=== PATIENT | female | born 1990 | race Caucasian/White ===

== ENCOUNTER 2024-03-17 11:56 | Outpatient (OUT) | payer OTHER, SELFPAY ==
--- NOTE | 2024-03-17 12:06 | US_ITS ---
The [address] [address] Patient Name: KRISTEN LEWIS MRN: [id number] date: 1990 Sex: F Assigned Patient Location: US Current Patient Location: US Accession/Order Number: [id number] Exam Date: 03/17/2024 12:07 Report Date: 03/17/2024 12:37 At the request of: CARSON SALAZAR Procedure: US venous doppler LE LT EXAMINATION: US venous doppler LE LT HISTORY: Edema R60.9 , left calf pain COMPARISON: No relevant comparison available. FINDINGS: REGION: Left lower extremity THROMBI: None. COMPRESSIBILITY: Normal compressibility. FLOW: Normal waveform and antegrade flow between 5 and 20 cm/s. OTHER: None. US/US venous doppler LE LT IMPRESSION: 1. No deep vein thrombus within the left lower extremity. Electronically authenticated by: LUKE EDWARDS Date: 03/17/2024 12:37
[2024-03-17 12:41] LABS: Basophils Percent Auto 0.5 % (0.2-2.0); Eosinophils Absolute Auto 0.1 10^3/uL (0.0-0.7); Eosinophils Percent Auto 2.2 % (0.9-7.0); Hematocrit 32.6 % (36.0-48.0); Hemoglobin 10.4 g/dL (12.0-16.0); Immature Granulocytes Abs Auto 0.05 10^3/uL (0.00-0.03); Immature Granulocytes Pct Auto 0.9 % (0.0-0.5); Lymphocytes Absolute Auto 1.7 10^3/uL (1.2-3.8); Lymphocytes Percent Auto 31.5 % (20.5-60.0); Mean Corpuscular HGB Conc 31.9 g/dL (29.9-35.2); Mean Corpuscular Hemoglobin 23.2 pg (26.7-34.0); Mean Corpuscular Volume 72.6 fL (81.0-99.0); Monocytes Absolute Auto 0.4 10^3/uL (0.3-0.8); Monocytes Percent Auto 7.5 % (1.7-12.0); Neutrophils Absolute Auto 3.2 10^3/uL (1.4-6.5); Neutrophils Percent Auto 57.4 % (43.0-75.0); Platelet Count 291 10^3/uL (150-450); Red Blood Count 4.49 10^6/uL (4.20-5.40); Red Cell Distribution Width 14.6 % (11.0-15.0); White Blood Count 5.5 10^3/uL (4.0-11.0)
[2024-03-17 14:03] LABS: Alanine Aminotransferase 47 U/L (14-59); Albumin Globulin Ratio 1.1; Albumin Level 4.1 g/dL (3.4-5.0); Alkaline Phosphatase 59 U/L (46-116); Aspartate Amino Transferase 40 U/L (15-37); BUN Creatinine Ratio 15.9; Bilirubin Total 0.3 mg/dL (0.2-1.0); Calcium 8.8 mg/dL (8.5-10.1); Carbon Dioxide 24.6 mmol/L (21.0-32.0); Chloride 103 mmol/L (98-107); Estimated GFR (African America >60 (>=60); Estimated GFR (Non-African Ame >60 (>=60); Globulin 3.6 g/dL; Glucose 94 mg/dL (74-106); Potassium 3.6 mmol/L (3.5-5.1); Sodium 140 mmol/L (136-145); Total Protein 7.7 g/dL (6.4-8.2)
[2024-03-17 14:59] LABS: Magnesium 1.7 mg/dL (1.8-2.4)
== END 2024-03-17 11:57 | disposition home or self-care (01) ==
LOC: US 12:00
PROVIDERS: PCP Family Medicine; Visit Provider Family Medicine
DX: R60.9 Edema, unspecified (principal); B00.1 Herpesviral vesicular dermatitis
CPT/HCPCS: 36415; 80053; 83735; 85025; 93971

== ENCOUNTER 2024-06-01 07:36 | Outpatient (RCR) | payer OTHER, SELFPAY ==
[2024-05-25 09:48] VITALS: BP 139/89; PULSE 84; TEMP 36.6; O2SAT 97
[2024-05-25] MEDS: FERRIC CARBOXYMALTOSE 750 MG in 0.9 % SODIUM CHLORIDE 250 ML 795 MG IV (09:51)
--- NOTE | 2024-05-25 10:24 | PC.NURSE ---
tolerated infusion without any s/s of reaction
[2024-06-01] MEDS: FERRIC CARBOXYMALTOSE 750 MG in 0.9 % SODIUM CHLORIDE 250 ML 795 MG IV (09:50)
[2024-06-01 09:51] VITALS: BP 131/87; PULSE 81; TEMP 36.6; O2SAT 98
== END 2024-06-13 23:59 | disposition home or self-care (01) ==
LOC: INF 07:36
PROVIDERS: PCP Family Medicine; Visit Provider Family Medicine
DX: D50.9 Iron deficiency anemia, unspecified (principal)
CPT/HCPCS: 96365; J1439

== ENCOUNTER 2025-03-12 15:38 | Outpatient (OUT) | payer OTHER, SELFPAY ==
--- NOTE | 2025-03-12 | US_ITS ---
The [address] [address] Patient Name: KRISTEN LEWIS MRN: [id number] date: 1990 Sex: F Assigned Patient Location: US Current Patient Location: US Accession/Order Number: [id number] Exam Date: 03/12/2025 17:00 Report Date: 03/12/2025 17:04 At the request of: CARSON SALAZAR MD Procedure: US appendix US appendix 03/12/2025 4:38 PM SIGNS AND SYMPTOMS: ^RLQ Pain R10.31 PROTOCOL: Limited ultrasound of the abdomen and the right lower quadrant/region of the appendix with grayscale and color Doppler sonographic imaging COMPARISON: None FINDINGS: Grayscale and color Doppler sonographic images demonstrate loops of bowel within the right lower quadrant. The appendix is not readily identified. There is no evidence of free fluid US/US appendix IMPRESSION: Nonvisualization of the appendix with right lower quadrant ultrasound. There is ongoing clinical concern for appendicitis, follow-up with contrast-enhanced CT of the abdomen and pelvis is recommended. Impression dictated by: Florentino Scott M.D. 03/12/2025 5:04 PM Dictation Location: [place] [address] Electronically authenticated by: [id number] Y Date: 03/12/2025 17:04
== END 2025-03-12 15:39 | disposition home or self-care (01) ==
LOC: US 15:38
PROVIDERS: PCP Family Medicine; Visit Provider Family Medicine
DX: R10.31 Right lower quadrant pain (principal)
CPT/HCPCS: 76705

== ENCOUNTER 2025-03-15 01:18 | Emergency (ER) | payer OTHER, SELFPAY ==
[2025-03-15 01:22] VITALS: BP 156/109; PULSE 92; TEMP 37.3; O2SAT 98; BMI 34.3
--- OUTSIDE RECORDS SUMMARY | 2025-03-15 01:25 | XMS_ITS | Encounter Summary ---
Author Organization [facility] Address [address] [place] [address] Care Team Providers Care Technology Methodology Consultant Name Role Phone Michael Chávez MD Primary Care Provider [phone] Reason for Referral * Imaging (Routine) - Closed Specialty Diagnoses / Procedures Referred By Contac t Referred To Contact Radiology Diagnoses RUQ pain Procedures US ABDOMEN LIMITED Michael Chávez MD [address] [place] [address] Phone: tel: fax: Referral ID Status Reason Start Date Expiration Date Visits Re quested Visits Authorized [id number] Closed 10/05/2022 10/05/2023 1 1 Encounter Details Date Type Department Care Team (Latest Contact Info) Description 10/05/2022 Transcribe Orders Bennett Pre Access [address] [place] [id number] [place] [address] [place] [id number] RUQ pain (Primary Dx) Social History Tobacco Use Types Packs/Day Years Used Date Smoking Tobacco: Former Cigarettes Smokeless Tobacco: Never Comments:patches Alcohol Use Standard Drinks/Week Comments No 0 (1 standard drink = 0.6 oz pur e alcohol) PHQ-2 Answer Date Recorded PHQ-9 Total Score 0 03/29/2020 Comments No Sex and Gender Information Value Date Recorded Sex Assigned at Female 06/29/2020 2:59 AM EDT Legal Sex Female 2:47 PM EST Gender Identity Female 06/29/2020 2:59 AM EDT Sexual Orientation Straight 06/29/2020 2: 59 AM EDT documented as of this encounter Plan of Treatment Upcoming Encounters Date Type Department Care Team (Late st Contact Info) Description 09/14/2025 1:45 PM EST Office Visit [facility]YN[facility]OLOGY Part of [address] [place] [phone] Lizbet Griffin, DO [address] [facility] [address] [place] [address] yearly documented as of this encounter Results * US ABDOMEN LIMITED Specify organ? LIVER, PANCREAS, GALLBLADDER (10/10/2022 11:06 AM EST) Anatomical Region Laterality Modality Abdomen Ultrasound 10/10/2022 11:1 4 AM EST Impressions 10/10/2022 1:17 PM EST Liver shows increased echogenicity suggesting hepatic steatosis without focal lesion. Prior cholecystectomy Narrative 10/10/2022 1:17 PM EST EXAMINATION: RIGHT UPPER QUADRANT ULTRASOUND 10/10/2022 10:35 am COMPARISON: December 14, 2021 HISTORY: ORDERING SYSTEM PROVIDED HISTORY: RUQ pain TECHNOLOGIST PROVIDED HISTORY: Specify organ?->LIVER Specify organ?->PANCREAS Specify organ?->GALLBLADDER FINDINGS: LIVER: Liver shows increased echogenicity suggesting hepatic steatosis without focal lesion. Liver 19.5 cm in length. BILIARY SYSTEM: Prior cholecystectomy Common bile duct is within normal limits measuring 3.8 mm. RIGHT KIDNEY: The right kidney is grossly unremarkable without evidence of hydronephrosis. PANCREAS: Visualized portions of the pancreas are unremarkable. OTHER: No evidence of right upper quadrant ascites. Procedure Note Mario Stewart, - 10/10/2022 EXAMINATION: RIGHT UPPER QUADRANT ULTRASOUND 10/10/2022 10:35 am COMPARISON: December 14, 2021 HISTORY: ORDERING SYSTEM PROVIDED HISTORY: RUQ pain TECHNOLOGIST PROVIDED HISTORY: Specify organ?->LIVER Specify organ?->PANCREAS Specify organ?->GALLBLADDER FINDINGS: LIVER: Liver shows increased echogenicity suggesting hepatic steatosis without focal lesion. Liver 19.5 cm in length. BILIARY SYSTEM: Prior cholecystectomy Common bile duct is within normal limits measuring 3.8 mm. RIGHT KIDNEY: The right kidney is grossly unremarkable without evidenceof hydronephrosis. PANCREAS: Visualized portions of the pancreas are unremarkable. OTHER: No evidence of right upper quadrant ascites. IMPRESSION: Liver shows increased echogenicity suggesting hepatic steatosis withoutfocal lesion. Prior cholecystectomy us Michael Chávez MD IMG US ORDERABLES Final Result documented in this encounter Visit Diagnoses Diagnosis RUQ pain- Primary Abdominal pain, right upper quadrant RUQ pain Abdominal pain, right upper quadrant documented in this encounter Additional Health Concerns Infection Onset Date Last Indicated Resolved Time C-diff Rule Out 02/14/2025 02/14/2025 02/14/2025 7 :04 PM EDT documented as of this encounter Care Teams Technology Methodology Consultant Relationship Specialty Start Date End Date Michael Chávez MD [address] [place] [address] PCP - General 10/22/13 documented as of this encounter
--- OUTSIDE RECORDS SUMMARY | 2025-03-15 01:25 | XMS_ITS | Encounter Summary ---
Author Organization [facility] Address [address] [place] [address] Care Team Providers Care Mold Making Supervisor Name Role Phone Michael Chávez MD Primary Care Provider [phone] Encounter Details Date Type Department Care Team (Latest Contact Info) Description 05/23/2022 Transcribe Orders Bennett Pre Access [address] [place] [address] Pinky Orozco, CHILD & ADOLESCENT PSYCHIATRIST - SOFTWARE QUALITY TESTER [address] [place] [address] Lump at site of vaccination (Primary Dx) Social History Tobacco Use Types [...] Description 09/14/2025 1:45 PM EST Office Visit [facility]YNECOLOGY Part of [address] [place] [phone] Lizbet Griffin, DO [address] [facility] [place] [address] yearly documented as of this encounter Visit Diagnoses Diagnosis Lump at site of vaccination- Primary documented in this encounter Additional Health Concerns Infection Onset Date Last Indicated Resolved Time C-diff Rule Out 02/14/2025 02/14/2025 02/14/2025 7 :04 PM EDT documented as of this encounter Care Teams Mold Making Supervisor Relationship Specialty Start Date End Date Michael Chávez MD [address] [place] [address] PCP - General 10/22/13 documented as of this encounter
--- OUTSIDE RECORDS SUMMARY | 2025-03-15 01:25 | XMS_ITS | Encounter Summary ---
Author Organization [facility] Address [address] [place] [address] Care Team Providers Care Storeperson Name Role Phone Michael Chávez MD Primary Care Provider [phone] Stalin Clarke MD Unavailable Michele Peterson DO Unavailable [phone] Encounter Details Date Type Department Care Team (Late st Contact Info) Description 11/11/2024 Abstract [facility] [address] [place] [address] Lennie Adams MA Social History Tobacco Use Types Packs/Day Years Used Date Smoking Tobacco: Former Cigarettes 0.3 10 Smokeless Tobacco: Never Comments:use patches daily Alcohol Use Standard Drinks/Week Comments Not Currently 0 (1 standard drink = 0.6 oz pur e alcohol) Socially Comments Unknown Sex and Gender Information Value Date Recorded Sex Assigned at Female 02/06/2024 5:35 PM EDT Legal Sex Female 6:51 PM EDT Gender Identity Female 02/06/2024 5:35 PM EDT Sexual Orientation Straight 02/06/2024 5: 35 PM EDT documented as of this encounter Plan of Treatment Upcoming Encounters Date Type Department Care Team (Late st Contact Info) Description 05/24/2025 2:00 PM EDT Office Visit [facility] [address] [place] [address] Michele Peterson DO [address] [place] [address] 09/28/2025 11:00 AM EST Office Visit [facility] [address] [place] [address] Stalin Clarke MD [address] [place] [address] documented as of this encounter Visit Diagnoses Not on filedocumented in this encounter Care Teams Storeperson Relationship Specialty Start Date End Date Michael Chávez MD PCP - General Family Medicine 02/07/24 Stalin Clarke MD [address] [place] [address] Referring Physician Endocrinology 10/27/24 Michele Peterson DO [address] [place] [address] Otolaryngology 10/27/24 documented as of this encounter
--- OUTSIDE RECORDS SUMMARY | 2025-03-15 01:25 | XMS_ITS | Encounter Summary ---
Author Organization [facility] Address [address] [place] [address] Care Team Providers Care Etl Data Architect Name Role Phone Michael Chávez MD Primary Care Provider [phone] Stalin Clarke MD Unavailable Michele Peterson Irwin DO Unavailable Encounter Details Date Type Department Care Team (Late st Contact Info) Description 08/18/2024 Orders Only [facility] [address] [place] [address] Stalin Clarke MD [address] [place] [address] Social History Tobacco Use Types Packs/Day Years [...] 05/24/2025 2:00 PM EDT Office Visit [facility] [place] [address] [place] [phone] Michele Peterson DO [address] [place] [address] 09/28/2025 11:00 AM EST Office Visit [facility] [address] [place] [phone] Stalin Clarke MD [address] [place] [address] documented as of this encounter Procedures Procedure Name Priority Date/Time Associated Diagnosis Comments US THYROID Routine 08/18/2024 9:08 AM EST documented in this encounter Results * US thyroid (08/18/2024 9:08 AM EST) Anatomical Region Laterality Modality Head, Neck Ultrasound us Stalin Clarke MD IMG US PROCEDURES Final Resul t documented in this encounter Visit Diagnoses Not on filedocumented in this encounter Care Teams Etl Data Architect Relationship Specialty Start Date End Date Michael Chávez MD PCP - General Family Medicine 02/07/24 Stalin Clarke MD [address] [place] [address] Referring Physician Endocrinology 10/27/24 Michele Peterson DO [address] [place] [address] Otolaryngology 10/27/24 documented as of this encounter
--- OUTSIDE RECORDS SUMMARY | 2025-03-15 01:25 | XMS_ITS | Encounter Summary ---
Author Organization [facility] Address [address] [place] [address] Care Team Providers Care Rn Immunology Name Role Phone Michael Chávez MD Primary Care Provider [phone] Reason for Referral * Imaging (Routine) - Closed Specialty Diagnoses / Procedures Referred By Contac t Referred To Contact Radiology Diagnoses Elevated LFTs RUQ pain Procedures US ABDOMEN LIMITED Michael Cáhvez MD [address] [place] [address] Phone: tel: fax: Referral ID Status Reason Start Date Expiration Date Visits Re quested Visits Authorized [id number] Closed 12/05/2021 12/05/2022 2 2 Encounter Details Date Type Department Care Team (Latest Contact Info) Description 12/05/2021 Transcribe Orders Bennett Pre Access [address] [place] [phone] Michael Chávez MD [address] [place] [address] Elevated LFTs (Primary Dx); RUQ pain Social History Tobacco Use Types Packs/Day Years [...] Description 09/14/2025 1:45 PM EST Office Visit [facility] & [facility]YN[facility]OLOGY Part of [address] [place] [address] Lizbet Griffin, DO [address] [place] [address] [address] [place], [place] [phone] yearly documented as of this encounter Results * US ABDOMEN LIMITED Specify organ? LIVER, GALLBLADDER, PANCREAS (12/14/2021 8:13 AM EST) Anatomical Region Laterality Modality Abdomen Ultrasound 12/14/2021 8:13 AM EST Impressions 12/14/2021 8:34 AM EST Likely diffuse hepatic fatty infiltration. Narrative 12/14/2021 8:34 AM EST EXAMINATION: RIGHT UPPER QUADRANT ULTRASOUND 12/14/2021 8:13 am COMPARISON: None. HISTORY: ORDERING SYSTEM PROVIDED HISTORY: Elevated LFTs TECHNOLOGIST PROVIDED HISTORY: Specify organ?->LIVER Specify organ?->GALLBLADDER Specify organ?->PANCREAS FINDINGS: LIVER: There is diffusely increased echogenicity of the liver suggesting fatty infiltration. No evidence of intrahepatic biliary ductal dilatation. Portal vein demonstrates hepatopetal flow. BILIARY SYSTEM: Cholecystectomy. Common bile duct is within normal limits measuring 3 mm. RIGHT KIDNEY: The right kidney is grossly unremarkable without evidence of hydronephrosis. Right renal length is 11 cm. PANCREAS: Visualized portions of the pancreas are grossly unremarkable. OTHER: No evidence of right upper quadrant ascites. Procedure Note Zachary Garduno MD - 12/14/2021 EXAMINATION: RIGHT UPPER QUADRANT ULTRASOUND 12/14/2021 8:13 am COMPARISON: None. HISTORY: ORDERING SYSTEM PROVIDED HISTORY: Elevated LFTs TECHNOLOGIST PROVIDED HISTORY: Specify organ?->LIVER Specify organ?->GALLBLADDER Specify organ?->PANCREAS FINDINGS: LIVER: There is diffusely increased echogenicity of the liversuggesting fatty infiltration. No evidence of intrahepatic biliary ductaldilatation. Portal vein demonstrates hepatopetal flow. BILIARY SYSTEM: Cholecystectomy. Common bile duct is within normal limits measuring 3 mm. RIGHT KIDNEY: The right kidney is grossly unremarkable without evidenceof hydronephrosis. Right renal length is 11 cm. PANCREAS: Visualized portions of the pancreas are grossly unremarkable. OTHER: No evidence of right upper quadrant ascites. IMPRESSION: Likely diffuse hepatic fatty infiltration. us Michael Chávez MD IMG US ORDERABLES Final Result documented in this encounter Visit Diagnoses Diagnosis Elevated LFTs- Primary Other abnormal blood chemistry RUQ pain Abdominal pain, right upper quadrant Elevated LFTs Other abnormal blood chemistry RUQ pain Abdominal pain, right upper quadrant documented in this encounter Additional Health Concerns Infection Onset Date Last Indicated Resolved Time C-diff Rule Out 02/14/2025 02/14/2025 02/14/2025 7 :04 PM EDT documented as of this encounter Care Teams Rn Immunology Relationship Specialty Start Date End Date Michael Chávez MD [address] [place] [address] PCP - General 10/22/13 documented as of this encounter
--- OUTSIDE RECORDS SUMMARY | 2025-03-15 01:25 | XMS_ITS | Clinical Summary ---
Author Organization [facility] Address [address] [place] [address] Care Team Providers Care Donor Recruiter Name Role Phone Steffi Bermudez CNP Unavailable Michael Chávez MD Primary Care Provider [phone] Allergies Active Allergy Reactions Criticality Noted Date Comments Beta-Blockers (Beta-Adrenergic Blocking Agts) Rash Low 03/19/2019 Diltiazem Rash Low 03/29/2020 Latex Anaphylaxis,Rash,Lily rtne ss of breath,Swelling High 07/01/2014 Ondansetron Headache Low 11/16/2017 Migraines Medications Medication Sig Dispensed Refills Start Date End Date Status amLODIPine (Norvasc) 5 mg tablet Take 1 tablet by mouth twice a day. 10/29/2023 Active cholecalciferol, vitamin D3, 50 mcg (2,000 unit) capsule Take 1 capsule by mouth in the morning. Active fluticasone (Flonase) 50 mcg/actuation nasal spray 1 spray by Does not apply route in the morning. 02/24/2020 Active hydrOXYzine pamoate (Vistaril) 25 mg capsule Take by mouth. 08/24/2020 Active hyoscyamine 0.125 mg dissolvable tablet every 4 (four) hours if needed. 07/25/2023 Active levothyroxine (Synthroid, Levoxyl) 137 mcg tablet Take 137 mcg by mouth in the morning. 09/29/2024 09/24/2025 Active loratadine 10 mg capsule Take 1 capsule by mouth in the morning. Active magnesium oxide (Mag-Ox) 400 mg (241.3 mg magnesium) tablet Take 1 tablet by mouth twice a day. 08/20/2024 Active metFORMIN XR (Glucophage-XR) 500 mg 24 hr tablet Take 1,000 mg by mouth twice a day. 09/21/2024 Active nicotine (Nicoderm CQ) 14 mg/[address] 1 patch on the skin in the morning. Active omeprazole (PriLOSEC) [address] capsule Take 1 capsule by mouth in the morning. Active oxaprozin (Daypro) 600 mg tablet Take 1,200 mg by mouth in the morning. Active M- Plus 27 mg iron- 1 mg tablet 1 tablet at bedtime. 12/18/2024 Active QUEtiapine (SEROquel) 50 mg tablet Take 50 mg by mouth at bedtime. Active valACYclovir (Valtrex) 1 gram tablet if needed. 05/15/2024 Active venlafaxine XR (Effexor-XR) 150 mg 24 hr capsule at bedtime. 01/18/2025 Active azelastine (Optivar) 0.05 % ophthalmic solution Administer 1 drop into affected eye(s) twice a day. 01/11/2025 Active bisacodyl (Dulcolax) 5 mg EC tabletIndications:S creen for colon cancer Take 1 tablet (5 mg) by mouth if needed each day for constipation. Do not crush, chew, or split. Take 4 tablets (20 mg) by mouth on Saturday02/10/25 at 6pm. 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 Uterine leiomyoma 06/13/2020 Gastro-esophageal reflux disease without esophag itis 10/28/2019 Hypothyroidism, unspecified 10/28/2019 Left lower quadrant pain 11/20/2018 Encounters Date Type Department Care Team Description 02/11/2025 1:34 PM EDT Anesthesia Event [address] [place] [address] Nito Granados MD Stimes, Nicholas, MD 02/11/2025 10:33 AM EDT - 02/11/2025 11:59 PM EDT Hospital Encounter [address] [place] [address] Manoj Macedo MD Bhatt, Shashi B., MD Rozek, Marc, CRNA Iron deficiency anemia, unspecified iron deficiency anemia type; Chronic diarrhea; Chronic abdominal pain; Chronic iron deficiency anemia Discharge Disposition: Home or Self Care () 02/11/2025 Travel 02/02/2025 Travel 02/01/2025 Orders Only [facility] [address] [place] [address] [place] [address] ProviderNancy MD 01/29/2025 Orders Only [facility] [address] [place] [address] [place] [address] ProviderNancy MD 01/19/2025 12:35 PM EDT Lab [facility] Station [address] [place] [address] [place] [address] Iron deficiency anemia, unspecified iron deficiency anemia type; Chronic diarrhea; Chronic abdominal pain 01/19/2025 12:15 PM EDT - 01/19/2025 11:59 PM EDT Hospital Encounter [facility] X-Ray Imaging [address] [place] [address] [place] [address] Iron deficiency anemia, unspecified iron deficiency anemia type; Chronic diarrhea; Chronic abdominal pain Discharge Disposition: Home or Self Care () 01/19/2025 11:30 AM EDT Office Visit [facility] [address] [place] [address] [place] [address] Steffi Bermudez CNP Iron deficiency anemia, unspecified iron deficiency anemia type (Primary Dx); Chronic diarrhea; Chronic abdominal pain 01/19/2025 [facility] [address] [place] [address] Johnson Rowley MA Screen for colon cancer (Primary Dx) from Last 3 Months Immunizations Name Administration Dates Next Due Influenza, Unspecified 07/15/2018 Influenza, injectable, quadr ivalent, preservative free 08/11/2023,07/01/2018,08/09/2016 Influenza, recombinant, quad rivalent, injectable, preservative free 07/19/2022,06/30/2021,07/30/2020,07/31 Influenza, seasonal, injectable 07/15/2018 Influenza, seasonal, injecta ble, preservative free, 6 moonths & older 07/27/2024,07/26/2015 Pneumococcal Polysaccharide PPV23 07/01/2018 Tdap 03/22/2022 Social History Tobacco Use Types Packs/Day Years Used Date Smoking Tobacco: Former Cigarettes Smokeless Tobacco: Never Tobacco Cessation:Counseling Given: Not Answered Alcohol Use Standard Drinks/Week Comments Not Currently 0 (1 standard drink = 0.6 oz pur e alcohol) Humiliation, Afraid, Rape, and Kick questionnair e Answer Date Recorded Within the last year, have y ou been afraid of your partner or ex-partner? No 01/19/2025 Within the last year, have y ou been humiliated or emotionally abused in other ways by your partner or ex-partner? No Within the last year, have y ou been kicked, hit, slapped, or otherwise physically hurt by your partner or ex-partner? No 01/19/2025 Within the last year, have y ou been raped or forced to have any kind of sexual activity by your partner or ex-partner? No 01/19/2025 PHQ-2 Answer Date Recorded Patient Health Questionnaire-2 Score 0 01/19/2025 Sex and Gender Information Value Date Recorded Sex Assigned at Not on file Gender Identity Not on file Sexual Orientation Not on file Last Filed Vital Signs Vital Sign Reading Time Taken Comments Blood Pressure 134/78 02/11/2025 2:50 PM EDT Pulse 82 02/11/2025 2:50 PM EDT Temperature 36.4 C (97.5 F) 02/11/2025 2:50 PM EDT Respiratory Rate 12 02/11/2025 2:50 PM EDT Oxygen Saturation 99% 02/11/2025 2:50 PM EDT Inhaled Oxygen Concentration - - Weight 95.7 kg (210 lb 15.7 oz) 025 10:51 AM EDT Height 165.1 cm (5' 5 ) 02/11/2025 10:5 1 AM EDT Body Mass Index 35.11 02/11/2025 10:51 AM EDT Plan of Treatment Upcoming Encounters Date Type Department Care Team (Late st Contact Info) Description 04/06/2025 3:00 PM EDT Office Visit [facility] [address] [place] [address] Malenfant, Steffi Emanuel, RN [facility] [address] [place] [address] Health Maintenance Due Date Last Done Comments Varicella Vaccines (1 of 2 - 13+ 2-dose series) 2002 Hepatitis B Vaccines (1 of 3 - 19+ 3-dose series) 2008 COVID-19 Vaccine ( season) 2024 Pap Smear 08/28/2025 08/28/2022 Depression Screening 01/19/2026 01/19/2025 Cervical Cancer Screening 08/28/2027 HPV/Cotest 08/28/2027 08/28/2022 Adult Tetanus 03/22/2032 03/22/2022 Zoster Vaccines (1 of 2) 2039 Pneumococcal Vaccine: Pediatrics (0 to 5 Years) and At-Risk Patients (6 to 64 Years) Aged Out 07/01/2018 No longer eligible based on patient's age to complete this topic Influenza Vaccine Completed 07/27/2024, , 07/19/2022, Additional history exists HIB Vaccines Aged Out No longer eligi ble based on patient's age to complete this topic HPV Vaccines Aged Out No longer eligi ble based on patient's age to complete this topic IPV Vaccines Aged Out No longer eligi ble based on patient's age to complete this topic Meningococcal B Vaccine Aged Out No l onger eligible based on patient's age to complete this topic Meningococcal Vaccine Aged Out No gregory joseph eligible based on patient's age to complete this topic Rotavirus Vaccines Aged Out No longer eligible based on patient's age to complete this topic Procedures Procedure Name Priority Date/Time Associated Diagnosis Comments DIAGNOSTIC COLONOSCOPY Routine 2:19 PM EDT Chronic iron deficiency anemia EGD Routine 02/11/2025 2:19 PM EDT Iron deficiency anemia, unspecified iron deficiency anemia type Chronic diarrhea Chronic abdominal pain HISTOLOGY - TISSUE EXAM Routine 02/12/20 25 1:45 PM EDT Iron deficiency anemia, unspecified iron deficiency anemia type Chronic diarrhea Chronic abdominal pain Chronic iron deficiency anemia POCT GLUCOSE METER UNSOLICITED RESULTS Routine 02/11/2025 11:03 AM EDT POCT , URINE Routine 02/11/2025 11:01 AM EDT CALPROTECTIN STOOL Routine 02/01/2025 8: 14 AM EDT GASTROINTESTINAL PANEL Routine 8:11 AM EDT H. PYLORI ANTIGEN, STOOL Routine 025 10:30 AM EDT GLIADIN ANTIBODY, IGG Routine 01/19/2025 12:35 PM EDT Iron deficiency anemia, unspecified iron deficiency anemia type Chronic diarrhea Chronic abdominal pain TISSUE TRANSGLUTAMINASE, IGG Routine 01/19/2025 12:35 PM EDT Iron deficiency anemia, unspecified iron deficiency anemia type Chronic diarrhea Chronic abdominal pain GLIADIN ANTIBODY, IGA Routine 01/19/2025 12:35 PM EDT Iron deficiency anemia, unspecified iron deficiency anemia type Chronic diarrhea Chronic abdominal pain IGA Routine 01/19/2025 12:35 PM EDT Iron deficiency anemia, unspecified iron deficiency anemia type Chronic diarrhea Chronic abdominal pain CELIAC DISEASE SCREEN Routine 01/19/2025 12:35 PM EDT Iron deficiency anemia, unspecified iron deficiency anemia type Chronic diarrhea Chronic abdominal pain XR ABDOMEN 1 VIEW Routine 01/19/2025 12: 16 PM EDT Iron deficiency anemia, unspecified iron deficiency anemia type Chronic diarrhea Chronic abdominal pain from Last 3 Months Results * Diagnostic Colonoscopy (02/11/2025 2:19 PM EDT) Anatomical Region Laterality Modality Other Narrative 02/11/2025 2:39 PM EDT Table formatting from the original result was not included. Colonoscopy Procedure Note Procedure: Colonoscopy with biopsies Indications: Chronic iron deficiency anemia Chronic diarrhea Sedation: MAC Medications: No administrations occurring from 1328 to 1417 on 02/11/25 Attending Physician: Manoj Macedo MD Procedure Details Informed consent was obtained for the procedure, including sedation. Risks of perforation, hemorrhage, adverse drug reaction and aspiration were discussed. The patient was placed in the left lateral decubitus position. The patient was monitored continuously with ECG tracing, pulse oximetry, blood pressure monitoring, and direct observations. A rectal examination was performed. The colonoscope was inserted into the rectum and advanced under direct vision to the cecum, which was identified by the ileocecal valve and appendiceal orifice. The IC valve was intubated. A careful inspection was made as the colonoscope was withdrawn, including a retroflexed view of the rectum; findings and interventions are described below. Appropriate photodocumentation was obtained. Findings: Rectum to Cecum: Normal mucosa throughout. No evidence of polyps, masses, inflammation, diverticula, or vascular abnormalities. Terminal Ileum: Successfully intubated. Mucosa appeared normal with no erythema, ulcers, erosions, or nodularity. Random colon biopsies obtained to rule out microscopic colitis Quality of colonic prep: fair Withdrawal time: 11 minutes Procedure Events Event Event Time CLN SCOPE IN 02/11/2025 1:56 PM CLN CECUM REACHED 02/11/2025 2:03 PM CLN SCOPE OUT 02/11/2025 2:14 PM Specimens: C : Tissue Large Intestine HISTOLOGY - TISSUE EXAM Manoj Macedo MD 02/11/2025 [id number] Complications: None Estimated blood loss: Minimal Disposition: Home Condition: stable Impression: Grossly normal colonoscopy with normal terminal ileum examination. Recommendations: Await pathology results Follow up at the GI clinic Attending Attestation: I performed the procedure. Michael Chávez MD ENDOSCOPY PROCEDURE ORDERABLES * EGD (02/11/2025 2:19 PM EDT) Anatomical Region Laterality Modality Other Narrative 02/11/2025 2:34 PM EDT Table formatting from the original result was not included. Esophagogastroduodenoscopy (EGD) Procedure Note Procedure: EGD with biopsies Indications: Chronic diarrhea RUQ pain Sedation: MAC Medications: No administrations occurring from 1328 to 1417 on 02/11/25 Attending Physician: Manoj Macedo MD Procedure Details: Informed consent was obtained for the procedure, including sedation. Risks of infection, perforation, hemorrhage, adverse drug reaction, and aspiration were discussed. The patient was placed in the left lateral decubitus position. The patient was monitored continuously with ECG tracing, pulse oximetry, blood pressure monitoring, and direct observation. The gastroscope was inserted into the mouth and advanced under direct vision to second portion of the duodenum. A careful inspection was made as the gastroscope was withdrawn, including a retroflexed view of the proximal stomach; findings and interventions are described below. Appropriate photodocumentation was obtained. Findings: Esophagus: Normal mucosa. No evidence of esophagitis, varices, rings, webs, or masses. Normal Z-line at 37 cm Stomach: Patchy erythema of the gastric mucosa including fundus, body, and antrum. No ulcers, erosions, masses, or varices. Few small fundic gland polyps. Duodenum: First and second portions visualized and normal. No ulcers, inflammation, or masses. Duodenal biopsies from the second portion to rule out celiac disease. Gastric biopsies from the antrum and body to rule out Helicobacter pylori infection. Specimens: ID Type Source Tests Collected by Time A : Tissue Small Intestine, Duodenum HISTOLOGY - TISSUE EXAM Manoj Macedo MD 02/11/2025 1345 B : Tissue Gastric HISTOLOGY - TISSUE EXAM Manoj Macedo MD 02/11/2025 1347 Complications: None Estimated blood loss: Minimal Condition: stable Impression: Mild gastritis Recommendations: Await pathology results Follow up at the GI clinic Proceed with colonoscopy Attending Attestation: I performed the procedure. Steffi Bermudez RN [facility] ENDOSCOPY PRO CEDURE ORDERABLES * Histology - tissue exam (02/11/2025 1:45 PM EDT) Case Report Surgical Pathology Case: [id number] Authorizing Provider: Manoj Macedo MD Collected: 02/11/2025 1345 Ordering Location: [facility] Received: 02/11/2025 [facility] Pathologist: Miguel Smith MD Specimens: A) - Small Intestine, Duodenum B) - Gastric C) - Large Intestine 02/15/2025 10:28 AM [facility] ([facility]) Addendum 02/15/2025 B. Immunohistochemical staining for Helicobacter pylori is negative. The control is satisfactory. 02/15/2025 10:28 AM [facility] ([facility]) Addendum electronically signed by Miguel Smith MD on 02/15/2025 at 10:28 AM Final Diagnosis A. Duodenum, biopsy: - Duodenal mucosa with with no specific abnormality. - No significant inflammation or villous abnormality identified. B. Stomach, biopsy: - Chronic inactive gastritis. - No intestinal metaplasia identified. - See comment. C. Colon, biopsy: - Benign colonic mucosa with no specific abnormality. 02/15/2025 10:28 AM [facility] ([facility]) Clinical Information Order Diagnoses D50.9 - Iron deficiency anemia, unspecified iron deficiency anemia type [ICD-10-CM] K52.9 - Chronic diarrhea [ICD-10-CM] R10.9, G89.29 - Chronic abdominal pain [ICD-10-CM] D50.9 - Chronic iron deficiency anemia [ICD-10-CM] 02/15/2025 10:28 AM [facility] ([facility]) Comment B. Immunohistochemic al staining for Helicobacter pylori organisms is pending with results to follow in an addendum. 02/15/2025 10:28 AM [facility] ([facility]) Gross Description A. Small Intestine, Duodenum. The specimen is received in formalin labeled Quyen Kolby and duodenum. It consists of 6 oro-pink, feathery pieces of mucosal tissue ranging from 0.3 cm to 0.5 cm in greatest dimension. The specimen is submitted in toto in 1 cassette. Mónica Vera, Pathologists' Advanced Practice Nurse Psychotherapist student Jailene Wilkins, Pathologists' Advanced Practice Nurse Psychotherapist B. Gastric. The specimen is received in formalin labeled Quyen Kolby and gastric. It consists of 4 oro-pink, shaggy pieces and strips of mucosal tissue ranging from 0.3 cm to 0.7 cm in greatest dimension. The specimen is submitted in toto in 1 cassette. Mónica Vera Pathologists' Advanced Practice Nurse Psychotherapist student Jailene Wilkins, Pathologists' Advanced Practice Nurse Psychotherapist C. Large Intestine. The specimen is received in formalin labeled Quyen Kolby and large intest. It consists of 11 pale-oro, shaggy fragments of mucosal tissue ranging from 0.2 cm to 0.5 cm in greatest dimension. The specimen is submitted in toto in 1 cassette. Mónica Vera Pathologists' Advanced Practice Nurse Psychotherapist student Jailene Wilkins Pathologists' Advanced Practice Nurse Psychotherapist 02/15/2025 10:28 AM EDT [facility] ([facility]) Microscopic Description Microscopic examination performed. 02/15/2025 10:28 AM EDT [facility] ([facility]) Disclaimer The interpretation o f this case included the use of immunohistochemistry or special stains. These tests have not been cleared or approved by the U.S. Food and Drug Administration. The FDA has determined that such clearance or approval is not necessary. These tests are used for clinical purposes and should not be regarded as investigational or for research. This laboratory is certified to perform high complexity testing under the Clinical Laboratory Improvement Amendments of 1998. 02/15/2025 10:28 AM EDT [facility] ([facility]) Tissue Duodenal structure / Unknown 02/11/2025 1:45 PM EDT 02/11/2025 2:55 PM EDT Tissue specimen (specimen) (Gastric) 02/11/2025 1:47 PM EDT 02/11/2025 2:55 PM EDT Tissue specimen (specimen) (Large Intestine) 02/11/2025 2:07 PM EDT 02/11/2025 2:55 PM EDT Manoj Macedo MD LAB PATHOLOGY ORDER TELMA [facility] ([facility]) [address] [place] [address] * POCT glucose meter (02/11/2025 11:03 AM EDT) Glucose POC 100 70 - 105 mg/dL 02/11/2025 11:14 AM EDT [facility] ([facility]) Comment:[email or web address] Blood Capillary blood specimen / Unknown 02/11/2025 11:03 AM EDT 02/11/2025 11:14 AM EDT Narrative [facility] ([facility]) - 02/11/2025 11:14 AM EDT Waived Testing in the ED is performed under the ED CLIA certificate #[id number]. Manoj Macedo MD LAB BLOOD ORDERABLE S [facility]) [address] [place] [address] * POCT , urine manually resulted (02/11/2025 11:01 AM EDT) Preg Test, Ur Negative QC Pass/Fail Passed QC LOT # [id number] QC Expiration Date 03/09/2026 Urine 02/11/2025 11:0 1 AM EDT Oc Luevano MD POINT OF CARE TEST E NTER/EDIT ORDERABLES * Calprotectin stool (02/01/2025 8:14 AM EDT) Stool Rectal contents / Unknown Historical Provider LAB BODY FLUIDS A ND STOOLS ORDERABLES * Gastrointestinal panel (02/01/2025 8:11 AM EDT) Stool Rectal contents / Unknown Historical Provider LAB MICROBIOLOGY - GENERAL ORDERABLES * H. pylori antigen, stool (01/29/2025 10:30 AM EDT) Stool Rectal contents / Unknown Historical Provider LAB BODY FLUIDS A ND STOOLS ORDERABLES * Celiac disease screen (01/19/2025 12:35 PM EDT) Tissue Transglutaminase, IgA <1.02 0.00 - 4.99 FLU 01/22/2025 3:44 AM EDT [facility]) Comment: Tissue transglutaminase, IgA antibody below lower limit of detection. Deamidated gliadin peptide, IgA test to follow. INTERPRETIVE INFORMATION: Tissue Transglutaminase (tTG) Antibody, IgA Presence of the tissue transglutaminase (tTG) IgA antibody is associated with gluten-sensitive enteropathies such as celiac disease and dermatitis herpetiformis. Individuals with positive results should be confirmed with small intestinal biopsy to establish celiac disease diagnosis. tTG IgA antibody concentrations greater than 50 FLU exhibits higher correlation with results of duodenal biopsies consistent with celiac disease. For antibody concentrations greater than or equal to 5 FLU but less than 10 FLU, additional testing for endomysial (CAMI) IgA concentrations may improve the positive predictive value for disease. A decrease in tTG IgA antibody concentration after initiation of a gluten-free diet may indicate a response to therapy. Performed By: [facility] [address] [place], [place] [id number] Women'S Ministry Director: Yuriy Cardenas MD, PhD CLIA Number: [id number] Blood Venous blood specimen / Unknown Venipuncture / Unknown 01/19/2025 12:35 PM EDT 01/19/2025 1:32 PM EDT Steffi Bermudez [facility] BLOOD ORD ERABLES [facility]) [address] [place] [address] * Gliadin antibody, IgG (01/19/2025 12:35 PM EDT) Deamidated Gliadin Peptide (DGP) Ab, IgG 2.33 0.00 - 4.99 FLU 01/22/2025 2:32 PM EDT [facility]) Comment: INTERPRETIVE INFORMATION: Deamidated Gliadin Peptide (DGP) Ab, IgG In individuals with low or deficient IgA, testing for tissue transglutaminase (tTG) and deamidated Gliadin (DGP) antibodies of the IgG isotype is performed. Positive tTG and/or DGP IgG antibody results indicate celiac disease; however, small intestinal biopsy is required to establish a diagnosis due to the lower accuracy of these markers, especially in patients without IgA deficiency. Performed By: [facility] [address] [place], [place] [id number] Women[employer] Director: Yuriy Cardenas MD, PhD CLIA Number: [id number] Blood Venous blood specimen / Unknown Venipuncture / Unknown 01/19/2025 12:35 PM EDT 01/19/2025 1:32 PM EDT Steffi Bermudez [facility] BLOOD ORD ERABLES [facility]) [address] [place] [address] * Gliadin antibody, IgA (01/19/2025 12:35 PM EDT) Deamidated Gliadin Peptide (DGP) Ab, IgA <0.72 0.00 - 4.99 FLU 01/22/2025 3:44 AM EDT [facility]) Comment: Low IgA antibody levels suspected. Tissue transglutaminase, IgG and deamidated gliadin peptide, IgG tests to follow. INTERPRETIVE INFORMATION: Deamidated Gliadin Peptide (DGP) Ab, IgA A positive deamidated gliadin (DGP) IgA antibody result is associated with celiac disease but is not to be used as an initial screening test due to its low specificity and only occasional positivity in celiac disease patients who are negative for tissue transglutaminase (tTG) IgA antibody. Performed By: [facility] [address] [place] [id number] Women[employer] Director: Yuriy Cardenas MD, PhD CLIA Number: [id number] Blood Venous blood specimen / Unknown Venipuncture / Unknown 01/19/2025 12:35 PM EDT 01/19/2025 1:32 PM EDT Steffi Bermudez [facility] BLOOD ORD ERABLES Performing Organization Address [facility]/ZIP Co de Phone Number [facility] ([facility]) [address] [place] [address] * Tissue transglutaminase, IgG (01/19/2025 12:35 PM EDT) Tissue Transglutaminase, IgG <0.82 0.00 - 4.99 FLU 01/22/2025 2:32 PM EDT [facility] ([facility]) Comment: INTERPRETIVE INFORMATION: Tissue Transglutaminase Ab, IgG In individuals with low or deficient IgA, testing for tissue transglutaminase (tTG) and deamidated Gliadin (DGP) antibodies of the IgG isotype is performed. Positive tTG and/or DGP IgG antibody results indicate celiac disease; however, small intestinal biopsy is required to establish a diagnosis due to the lower accuracy of these markers, especially in patients without IgA deficiency. Performed By: [facility] [address] [place] [address] Women'S Ministry Director: Yuriy Cardenas MD, PhD CLIA Number: [id number] Blood Venous blood specimen / Unknown Venipuncture / Unknown 01/19/2025 12:35 PM EDT 01/19/2025 1:32 PM EDT Steffibimal Greerkadiestephanie [facility] BLOOD ORD ERABLES Performing Organization Address [facility] Co de Phone Number [facility] [address] [place] [address] * IgA (01/19/2025 12:35 PM EDT) IgA 237.0 84.5 - 499.0 mg/dL 01/20/2025 10:28 AM EDT [facility] ([facility]) Comment:Testing performed us ing a new methodology, turbidimetry. Normal ranges have been updated. Old normal range was 60-413 mg/dL (adult). Blood Venous blood specimen / Unknown Venipuncture / Unknown 01/19/2025 12:35 PM EDT 01/19/2025 1:32 PM EDT Steffi Greerkadieant RN [facility] BLOOD ORD ERABLES [facility]) [address] [place], [place] [id number] * XR abdomen 1 view (01/19/2025 12:16 PM EDT) Anatomical Region Laterality Modality Abdomen Computed Radiogr aphy 01/19/2025 1:09 PM EDT Impressions 01/19/2025 1:28 PM EDT Suboptimal study as a large portion of the abdomen is excluded from the zcrxu-im-vmcs. Recommend repeat radiograph. Electronically signed: Ruslan Davis MD. Narrative 01/19/2025 1:28 PM EDT XR ABDOMEN 1 VIEW 01/19/2025 12:15 PM CLINICAL INDICATIONS: Diarrhea COMPARISON: None FINDINGS: 2 views of the abdomen were obtained. However the central abdomen was excluded from the jxhvv-rb-tvcc. Moderate fecal burden within the rectum. No definite evidence of pneumoperitoneum. Procedure Note Rusaln Davis MD - 01/19/2025 XR ABDOMEN 1 VIEW 01/19/2025 12:15 PM CLINICAL INDICATIONS: Diarrhea COMPARISON: None FINDINGS: 2 views of the abdomen were obtained. However the central abdomen wasexcluded from the bmfqy-df-gfyq. Moderate fecal burden within the rectum. Nodefinite evidence of pneumoperitoneum. IMPRESSION: Suboptimal study as a large portion of the abdomen is excluded from the zjytm-pt-cdbd. Recommend repeat radiograph. Electronically signed: Ruslan Davis MD. Steffi Luciano Greerberta RN [facility] XR PROCED URES from Last 3 Months Care Teams Donor Recruiter Relationship Specialty Start Date End Date Michael Chávez MD [address] [facility] [address] PCP - General Family Medicine 02/11/25 Steffi Bermudez RN [facility] [address] [place] [address] Gastroenterology 01/20/25
--- OUTSIDE RECORDS SUMMARY | 2025-03-15 01:25 | XMS_ITS | Referral Summary ---
Author Organization [facility] Address [address] [place] [address] Care Team Providers Care Personal Driver Name Role Phone Steffi Bermudez CNP Unavailable [phone] Michael Chávez MD Primary Care Provider [phone] Encounters Date Type Department Care Team Description 02/11/2025 Travel 02/11/2025 10:33 AM EDT - 02/11/2025 11:59 PM EDT Hospital Encounter [facility] Invasive Surgery [address] [place] [address] Manoj Macedo MD Bhatt, Shashi B., MD Rozek, Marc, CRNA Iron deficiency anemia, unspecified iron deficiency anemia type; Chronic diarrhea; Chronic abdominal pain; Chronic iron deficiency anemia Discharge Disposition: Home or Self Care () 02/11/2025 1:34 PM EDT Anesthesia Event [facility] Invasive Surgery [address] [place] [address] Nito Granados MD Stimes, Nicholas, MD 02/02/2025 Travel 02/01/2025 Orders Only [facility] Gastroenterology [address] [place] [address] [place] [address] Nancy Iraheta MD 01/29/2025 Orders Only [facility] Gastroenterology [address] [place] [address] [place] [address] ProviderNancy MD 01/19/2025 Orders Only [facility] Invasive Surgery Center Endoscopy [address] [place] [address] [place] [phone] Johnson Rowley MA Screen for colon cancer (Primary Dx) 01/19/2025 12:35 PM EDT Lab [facility] Draw Station [address] [place] [address] [place] [phone] Iron deficiency anemia, unspecified iron deficiency anemia type; Chronic diarrhea; Chronic abdominal pain 01/19/2025 12:15 PM EDT - 01/19/2025 11:59 PM EDT Hospital Encounter [facility] X-Ray Imaging [address] [place] [address] [place] [address] Iron deficiency anemia, unspecified iron deficiency anemia type; Chronic diarrhea; Chronic abdominal pain Discharge Disposition: Home or Self Care () 01/19/2025 11:30 AM EDT Office Visit [facility] Gastroenterology [address] [place] [address] [place] [address] Steffi Bermudez CNP Iron deficiency anemia, unspecified iron deficiency anemia type (Primary Dx); Chronic diarrhea; Chronic abdominal pain from Last 3 Months Allergies Active Allergy Reactions Criticality Noted Date [...] unspecified 10/28/2019 Left lower quadrant pain 11/20/2018 Immunizations Name Administration Dates Next Due Influenza, [...] Description 04/06/2025 3:00 PM EDT Office Visit [facility] Gastroenterology [facility] [address] MaleSteffi hampton, WEIGHT SHIFTER [address] [place] [address] Procedures Procedure Name Priority Date/Time Associated Diagnosis Comments DIAGNOSTIC COLONOSCOPY Routine 2:19 PM EDT Chronic iron deficiency anemia EGD Routine 02/11/2025 2:19 PM EDT Iron deficiency anemia, unspecified iron deficiency anemia type Chronic diarrhea Chronic abdominal pain HISTOLOGY - TISSUE EXAM Routine 02/12/20 1:45 PM EDT Iron deficiency anemia, unspecified [...] - TISSUE EXAM Manoj Macedo MD 02/11/2025 1407 Complications: None Estimated blood loss: Minimal Disposition: [...] Attending Attestation: I performed the procedure. Steffi Luciano Lara WE[employer] SH[facility]TER ENDOSCOPY PRO CEDURE ORDERABLES * Histology - tissue exam (02/11/2025 1:45 PM EDT) Case Report Surgical Pathology Case: [id number] Authorizing Provider: Manoj Macedo MD Collected: 02/11/2025 1345 Ordering Location: [facility] Received: 02/11/2025 1455 Invasive Surgery Center Pathologist: Miguel Smith MD Specimens: A) - Small Intestine, Duodenum B) - Gastric C) - Large Intestine 02/15/2025 10:28 AM [facility] ([employer] Addendum 02/15/2025 B. Immunohistochemical staining for Helicobacter pylori is negative. The control is satisfactory. 02/15/2025 10:28 AM [facility] ([employer] Addendum electronically signed by Miguel Smith MD on 02/15/2025 at 10:28 AM Final Diagnosis A. Duodenum, biopsy: - Duodenal mucosa with with no specific abnormality. - No significant inflammation or villous abnormality identified. B. Stomach, biopsy: - Chronic inactive gastritis. - No intestinal metaplasia identified. - See comment. C. Colon, biopsy: - Benign colonic mucosa with no specific abnormality. 02/15/2025 10:28 AM T [facility] ([employer] Clinical Information Order Diagnoses D50.9 - Iron deficiency anemia, unspecified iron deficiency anemia type [ICD-10-CM] K52.9 - Chronic diarrhea [ICD-10-CM] R10.9, G89.29 - Chronic abdominal pain [ICD-10-CM] D50.9 - Chronic iron deficiency anemia [ICD-10-CM] 02/15/2025 10:28 AM [facility] ([facility]) Comment B. Immunohistochemic al staining for Helicobacter pylori organisms is pending with results to follow in an addendum. 02/15/2025 10:28 AM [facility] ([facility]) Gross Description A. Small Intestine, Duodenum. The specimen is received in formalin labeled Quyen Kolby and duodenum. It consists of 6 oro-pink, feathery pieces of mucosal tissue ranging from 0.3 cm to 0.5 cm in greatest dimension. The specimen is submitted in toto in 1 cassette. Mónica Vera, Pathologists' Paperback Machine Operator student Jailene Wilkins, Pathologists' Paperback Machine Operator B. Gastric. The specimen is received in formalin labeled Quyen Kolby and gastric. It consists of 4 oro-pink, shaggy pieces and strips of mucosal tissue ranging from 0.3 cm to 0.7 cm in greatest dimension. The specimen is submitted in toto in 1 cassette. Mónica Vera, Pathologists' Paperback Machine Operator student Jailene Wilkins, Pathologists' Paperback Machine Operator C. Large Intestine. The specimen is received in formalin labeled Quyen Kolby and large intest. It consists of 11 pale-oro, shaggy fragments of mucosal tissue ranging from 0.2 cm to 0.5 cm in greatest dimension. The specimen is submitted in toto in 1 cassette. Mónica Vera Pathologists' Paperback Machine Operator student Jailene Wilkins, Pathologists' Paperback Machine Operator 02/15/2025 10:28 AM [facility] ([facility]) Microscopic Description Microscopic examination performed. 02/15/2025 10:28 AM [facility] ([facility]) Disclaimer The interpretation o f this case [...] Amendments of 1998. 02/15/2025 10:28 AM EDT [facility] ([facility]) Tissue Duodenal structure / Unknown 02/11/2025 1:45 PM EDT 02/11/2025 2:55 PM EDT Tissue specimen (specimen) (Gastric) 02/11/2025 1:47 PM EDT 02/11/2025 2:55 PM EDT Tissue specimen (specimen) (Large Intestine) 02/11/2025 2:07 PM EDT 02/11/2025 2:55 PM EDT Manoj Macedo MD LAB PATHOLOGY ORDER TELMA [facility]) [address] [place] [address] * POCT glucose meter (02/11/2025 11:03 AM EDT) Glucose POC 100 70 - 105 mg/dL 02/11/2025 11:14 AM EDT [facility] ([facility]) Comment:[email or web address] Blood Capillary blood specimen / Unknown 02/11/2025 11:03 AM EDT 02/11/2025 11:14 AM EDT Narrative [facility]) - 02/11/2025 11:14 AM EDT Waived Testing in the ED is performed under the ED CLIA certificate #[id number]. Manoj Macedo MD LAB BLOOD ORDERABLE S [facility]) [address] [place] [address] * POCT , urine manually resulted (02/11/2025 [...] - 4.99 FLU 01/22/2025 3:44 AM EDT [facility] ([facility]) Comment: Tissue transglutaminase, IgA antibody below lower [...] indicate a response to therapy. Performed By: [facility] [address] [place] [id number] Logistics Coordinator: Yuriy Cardenas MD, PhD CLIA Number: [id number] Blood Venous blood specimen / Unknown Venipuncture / Unknown 01/19/2025 12:35 PM EDT 01/19/2025 1:32 PM EDT Steffi Luciano Greerberta [facility] BLOOD ORD ERABLES [facility] [address] [place] [address] * Gliadin antibody, IgG (01/19/2025 12:35 PM EDT) Deamidated Gliadin Peptide (DGP) Ab, IgG 2.33 0.00 - 4.99 FLU 01/22/2025 2:32 PM EDT [facility] ([facility]) Comment: INTERPRETIVE INFORMATION: Deamidated Gliadin Peptide (DGP) [...] in patients without IgA deficiency. Performed By: [place] [id number] Logistics Coordinator: Yuriy Cardenas MD, PhD CLIA Number: [id number] Blood Venous blood specimen / Unknown Venipuncture / Unknown 01/19/2025 12:35 PM EDT 01/19/2025 1:32 PM EDT Steffi Luciano Lara [facility] BLOOD ORD ERABLES [facility]) [address] [place] [address] * Gliadin antibody, IgA (01/19/2025 12:35 PM EDT) Deamidated Gliadin Peptide (DGP) Ab, IgA <0.72 0.00 - 4.99 FLU 01/22/2025 3:44 AM EDT [facility] ([facility]) Comment: Low IgA antibody levels suspected. Tissue [...] tissue transglutaminase (tTG) IgA antibody. Performed By: [facility] [address] [place] [address] Logistics Coordinator: Yuriy Cardenas MD, PhD CLIA Number: [id number] Blood Venous blood specimen / Unknown Venipuncture / Unknown 01/19/2025 12:35 PM EDT 01/19/2025 1:32 PM EDT Steffi Bermudez [facility] BLOOD ORD ERABLES Performing Organization Address City/[facility]/ZIP Co de Phone Number [facility] Location [facility]) [address] [place] [address] * Tissue transglutaminase, IgG (01/19/2025 12:35 PM EDT) Tissue Transglutaminase, IgG <0.82 0.00 - 4.99 FLU 01/22/2025 2:32 PM EDT [facility] [employer] ([facility]) Comment: INTERPRETIVE INFORMATION: Tissue Transglutaminase Ab, [...] in patients without IgA deficiency. Performed By: [facility] [address] [place] [address] Logistics Coordinator: Yuriy Cardenas MD, PhD CLIA Number: [id number] Blood Venous blood specimen / Unknown Venipuncture / Unknown 01/19/2025 12:35 PM EDT 01/19/2025 1:32 PM EDT Steffi Bermudez [facility] BLOOD ORD ERABLES [facility] ([facility]) [address] [place] [address] * IgA (01/19/2025 12:35 PM EDT) IgA 237.0 84.5 - 499.0 mg/dL 01/20/2025 10:28 AM EDT [facility] ([facility]) Comment:Testing performed us ing a new methodology, turbidimetry. Normal ranges have been updated. Old normal range was 60-413 mg/dL (adult). Blood Venous blood specimen / Unknown Venipuncture / Unknown 01/19/2025 12:35 PM EDT 01/19/2025 1:32 PM EDT Steffi Greerberta [facility] BLOOD ORD ERABLES [facility] ([facility]) [address] [place] [address] * XR abdomen 1 view (01/19/2025 12:16 PM EDT) Anatomical Region Laterality Modality Abdomen Computed Radiogr aphy 01/19/2025 1:09 PM EDT Impressions 01/19/2025 1:28 PM EDT Suboptimal study as a large portion of the abdomen is excluded from the lgnkc-kf-njwk. Recommend repeat radiograph. Electronically signed: Ruslan Davis MD. Narrative 01/19/2025 1:28 PM EDT XR ABDOMEN 1 VIEW 01/19/2025 12:15 PM CLINICAL INDICATIONS: Diarrhea COMPARISON: None FINDINGS: 2 views of the abdomen were obtained. However the central abdomen was excluded from the jnrdl-qi-tkic. Moderate fecal burden within the rectum. No definite evidence of pneumoperitoneum. Procedure Note Ruslan Davis MD - 01/19/2025 XR ABDOMEN 1 VIEW 01/19/2025 12:15 PM CLINICAL INDICATIONS: Diarrhea COMPARISON: None FINDINGS: 2 views of the abdomen were obtained. However the central abdomen wasexcluded from the cmtdi-ot-nyfe. Moderate fecal burden within the rectum. Nodefinite evidence of pneumoperitoneum. IMPRESSION: Suboptimal study as a large portion of the abdomen is excluded from the aeopk-bs-yiav. Recommend repeat radiograph. Electronically signed: Ruslan Davis MD. Steffi Bermudez CNP IMG XR PROCED URES from Last 3 Months Care Teams Personal Driver Relationship Specialty Start Date End Date Michael Chávez MD [address] [facility] [address] [address] PCP - General Family Medicine 02/11/25 Steffi Bermudez CNP [address] [place] [address] Gastroenterology 01/20/25
--- OUTSIDE RECORDS SUMMARY | 2025-03-15 01:25 | XMS_ITS | Clinical Summary ---
Author Organization [facility] Address [address] [place] [address] Care Team Providers Care Commodity Merchant Name Role Phone Michael Chávez MD Primary Care Provider [phone] Allergies Active Allergy Reactions Criticality Noted Date Comments Beta Adrenergic Blockers 03/19/2019 Diltiazem 03/29/2020 Latex Shortness Of Breath,Swelling High 07/01/2014 Metoprolol 03/29/2020 Ondansetron Hcl Other (See Comments) Low 11/16/2017 Migraines Medications omeprazole (PRILOSEC) 40 MG delayed release capsule Take 1 capsule by mouth daily Active levothyroxine (SYNTHROID) 137 MCG tablet Take 1 tablet by mouth nightly Active Cholecalciferol (VITAMIN D) 2000 units CAPS capsule Take 1 capsule by mouth daily Active fluticasone (FLONASE) 50 MCG/ACT nasal spray 1 spray by Nasal route daily 0 Active nicotine (NICODERM CQ) 14 MG/24HR Place 1 patch onto the skin every 24 hours Active hydrOXYzine (VISTARIL) 25 MG capsule Take 1 capsule by mouth 4 times daily as needed for Anxiety 0 Active venlafaxine (EFFEXOR XR) 75 MG extended release capsule 2 capsules nightly 0 Active loratadine (CLARITIN) 10 MG capsule Take 1 capsule by mouth daily Active hyoscyamine (LEVSIN/SL) [address] 1 tablet under the tongue every 6 hours as needed for Diarrhea or Cramping 3 Active amLODIPine (NORVASC) 5 MG tablet Take 1 tablet by mouth 2 times daily Active magnesium oxide (MAG-OX) 400 MG tablet Take 1 tablet by mouth 2 times daily 4 Active oxaprozin (DAYPRO) 600 MG tablet TAKE 2 TABLETS BY MOUTH EACH MORNING Active QUEtiapine (SEROQUEL) 50 MG tablet Take 1 tablet by mouth nightly Active Vit-Fe Fumarate-FA (M- PLUS) 27-1 MG TABS Take 1 tablet by mouth daily 30 tablet 12 4 Active metFORMIN (GLUCOPHAGE-XR) 500 MG extended release tablet TAKE TWO (2) TABLETS BY MOUTH IN THE MORNING AND TAKE TWO (2) TABLETS BY MOUTH AT BEDTIME 120 tablet 10 4 Active vitamin D (CHOLECALCIFERO L) 50 MCG (1999) TABS tablet Take 1 tablet by mouth daily 3 02/15/20 Discontinu ed(LIST CLEANUP) loratadine (CLARITIN) 10 MG tablet Take 1 tablet by mouth daily 3 02/15/20 Discontinu ed(LIST CLEANUP) triamcinolone (KENALOG) 0.1 % cream Apply topically 2 times daily Apply topically 2 times daily. 02/15/20 Discontinu ed(LIST CLEANUP) mupirocin (BACTROBAN) 2 % ointment Apply topically 3 times daily Apply topically 3 times daily. 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 Uterine leiomyoma 06/13/2020 Gastro-esophageal reflux disease without esophag itis 10/28/2019 Hypothyroidism, unspecified 10/28/2019 Left lower quadrant pain 11/20/2018 Endometriosis determined by laparoscopy Paratubal cyst Endometrial thickening on ultrasound Endometriosis of left fallopian tube Post-op pain Encounters Date Type Department Care Team Description 02/13/2025 9:33 PM EDT - 02/14/2025 5:04 PM EDT [facility] [address] [place], [place] [id number] PosadHarpreet eason MD Sears, Christopher D, MD Abdominal pain, right lower quadrant (Primary Dx); Acute appendicitis with generalized peritonitis without gangrene, perforation, or abscess Discharge Disposition: Home or Self Care 02/13/2025 Travel 01/28/2025 12:00 PM EDT - 01/28/2025 11:59 PM EDT Hospital Encounter [facility] [address] [place] [address] Discharge Disposition: Home or Self Care from Last 3 Months Immunizations Immunization Administration Dates Next Due Influenza Vaccine, unspecified formulation 07/15 Influenza, FLUARIX, FLULAVAL , FLUZONE (age 6 mo+) and AFLURIA, (age 3 y+), Quadv PF, 0.5mL 08/11/2023,07/01/2018,08/09/2016 TDaP, ADACEL (age 10y-64y), BOOSTRIX (age 10y+), IM, 0.5mL 03/22/2022 Family History Medical History Relation Name Comments Mental Illness Father Candido Bleeding Prob Mother Riya Other Other Ni family h/o o varian or breast cancer. No family h/o DVT. Hypertension Paternal Grandfather Bakari Stroke Paternal Grandfather Bakari Relation Name Status Comments Brother Alive Father Candido Maternal Grandfather Maternal Grandmother Mother Riya Alive Other Other Paternal Grandfather Bakari Paternal Grandmother Social History Tobacco Use Types Packs/Day Years Used Date Smoking Tobacco: Former Cigarettes 0.3 10 1 - 07/14/2018 Smokeless Tobacco: Never Comments:Still on patches Alcohol Use Standard Drinks/Week Comments No 0 (1 standard drink = 0.6 oz pur e alcohol) [facility] Utilities Answer Date Recorded In the past 12 months has e [facility], gas, oil, or water [email or web address] threatened to shut off services in your home? No 02/14/2025 PHQ-2 Answer Date Recorded PHQ-9 Total Score 0 09/30/2023 Hunger Vital Sign Answer Date Recorded Within the past 12 months, y ou worried that your food would run out before you got the money to buy more. Never true 02/15/20 25 Within the past 12 months, t he food you bought just didn't last and you didn't have money to get more. Never true 02/14/2025 PRAPARE - Transportation Answer Date Re corded In the past 12 months, has l ack of transportation kept you from medical appointments or from getting medications? No 01/2025 In the past 12 months, has l ack of transportation kept you from meetings, work, or from getting things needed for daily living? No 02/14/2025 Housing Stability Vital Sign Answer Pineda e Recorded In the last 12 months, was t here a time when you were not able to pay the mortgage or rent on time? No 02/14/2025 In the past 12 months, how m any times have you moved where you were living? 0 02/14/2025 At any time in the past 12 m [facility], were you homeless or living in a jail (including now)? No 02/14/2025 Food Insecurity Answer Date Recorded Within the past 12 months, y ou worried that your food would run out before you got the money to buy more. 1 02/14/2025 Within the past 12 months, t he food you bought just didn't last and you didn't have money to get more. 1 02/14/2025 Interpersonal Safety Domain Source: IP Abuse Scr eening Answer Date Recorded Physical abuse Denies 02/14/2025 Verbal abuse Denies 02/14/2025 Emotional abuse Denies 02/14/2025 Financial abuse Denies 02/14/2025 Sexual abuse Denies 02/14/2025 Comments No Sex and Gender Information Value Date Recorded Sex Assigned at Female 06/29/2020 2:59 AM EDT Legal Sex Female 2:47 PM EST Gender Identity Female 06/29/2020 2:59 AM EDT Sexual Orientation Straight 06/29/2020 2: 59 AM EDT Last Filed Vital Signs Vital Sign Reading Time Taken Comments Blood Pressure 134/78 02/14/2025 7:00 AM EDT Pulse 79 02/14/2025 7:00 AM EDT Temperature 36.3 C (97.4 F) 02/14/2025 7:00 AM EDT Respiratory Rate 14 02/14/2025 7:44 AM EDT Oxygen Saturation 96% 02/14/2025 7:00 AM EDT Inhaled Oxygen Concentration - - Weight 94.2 kg (207 lb 9.6 oz) 02/14/2025 1:55 A M EDT Height 165.1 cm (5' 5 ) 02/14/2025 1:55 AM EDT Body Mass Index 34.55 02/14/2025 1:55 AM EDT Plan of Treatment Upcoming Encounters Date Type Department Care Team (Late st Contact Info) Description 09/14/2025 1:45 PM EST Office Visit [facility] Part of [address] [place] [id number] Lizbet Griffin, DO [address] [place] [address] yearly Health Maintenance Due Date Last Done Comments Varicella vaccine (1 of 2 - 13+ 2-dose series) 2002 HIV screen 2004 Hepatitis B vaccine (1 of 3 - 19+ 3-dose series) 2008 COVID-19 Vaccine ( season) 2024 Depression Screen 09/30/2024 09/30/2023 Pap smear 08/28/2025 08/28/2022, 06/04/2018 Cervical cancer screen 08/28/2027 HPV (without or with Pap) 08/28/2027 08/28/2022 DTaP/Tdap/Td vaccine (2 - Td or Tdap) 03/22/2032 03/22/2022 Pneumococcal 0-49 years Vaccine Aged Out 07/01/2018 No longer eligible based on patient's age to complete this topic Hepatitis C screen Completed 12/01/2021, 09/20/2020 Flu vaccine Completed 07/27/2024, 07/15, 07/19/2022, Additional history exists Diabetes screen Discontinued 09/23/2024, 10/14, 10/02/2022, Additional history exists HPV vaccine Aged Out No longer eligi ble based on patient's age to complete this topic Hepatitis A vaccine Aged Out No longe r eligible based on patient's age to complete this topic Hib vaccine Aged Out No longer eligi ble based on patient's age to complete this topic Meningococcal (ACWY) vaccine Aged Out No longer eligible based on patient's age to complete this topic Meningococcal B vaccine Aged Out No l onger eligible based on patient's age to complete this topic Polio vaccine Aged Out No longer elig ible based on patient's age to complete this topic Procedures Procedure Name Priority Date/Time Associated Diagnosis Comments POTASSIUM Timed 02/14/2025 2:07 PM EDT MAGNESIUM Routine 02/14/2025 6:48 AM EDT CBC WITH AUTO DIFFERENTIAL Routine 02/14/2025 6:48 AM EDT BASIC METABOLIC PANEL W/ REFLEX TO MG FOR LOW K Routine 02/14/2025 6:[address] CHEST ABDOMEN PELVIS W CONTRAST STAT 02/13/2025 10:34 PM EDT LACTIC ACID STAT 02/13/2025 9:40 PM EDT LIPASE STAT 02/13/2025 9:40 PM EDT COMPREHENSIVE METABOLIC PANEL STAT 02/13/2025 9:40 PM EDT CBC WITH AUTO DIFFERENTIAL STAT 02/13/2025 9:40 PM EDT CALPROTECTIN STOOL Routine 01/27/2025 11 :01 AM EDT H. PYLORI ANTIGEN Routine 01/27/2025 11: 01 AM EDT GASTROINTESTINAL PANEL, MOLECULAR Routine 01/27/2025 11:01 AM EDT HEMOGLOBIN A1C Routine 09/23/2024 10:48 AM EST HUMAN PAPILLOMAVIRUS (HPV) DNA PROBE THIN PREP HIGH RISK Routine 08/28/2022 7:30 AM EST PAINTING MANAGER CYTOLOGY Routine 08/28/2022 7:30 AM EST HEPATITIS PANEL, ACUTE Routine 3:08 PM EST from Last 3 Months or Most Recently Relevant to Health Maintenance Results * Potassium (02/14/2025 2:07 PM EDT) Potassium 3.7 3.7 - 5.3 mmol/L 02/14/2025 2:07 PM EDT [facility] Blood BLOOD SPECIMEN / Unknown 02/14/2025 2:07 PM EDT 02/14/2025 4:16 PM EDT us Iain Aldana MD CHEMISTRY ORDERABLES Edie l Result [facility] [address] [phone] * (ABNORMAL) Basic Metabolic Panel w/ Reflex to MG (02/14/2025 6:48 AM EDT) Sodium 140 136 - 145 mmol/L 02/14/2025 6:48 AM T [facility] Potassium 3.0(L) 3.7 - 5.3 mmol/L 02/14/2025 6:48 AM [facility] Chloride 104 98 - 107 mmol/L 02/14/2025 6:48 AM [facility] CO2 23 20 - 31 mmol/L 02/14/2025 6:48 AM [facility] Anion Gap 13 9 - 16 mmol/L 02/14/2025 6:48 AM [facility] Glucose 83 74 - 99 mg/dL 02/14/2025 6:48 AM [facility] BUN 10 6 - 20 mg/dL 02/14/2025 6:48 AM [facility] Creatinine 0.6 0.50 - 0.90 mg/dL 02/14/2025 6:48 AM [facility] Est, Glom Filt Rate >90 >60 mL/min/1.7 3m2 02/14/2025 6:48 AM EDT [facility] Comment: These results are not intended for use in patients <18 years of age. eGFR results are calculated without a race factor using the 2020 CKD-EPI equation. Careful clinical correlation is recommended, particularly when comparing to results calculated using previous equations. The CKD-EPI equation is less accurate in patients with extremes of muscle mass, extra-renal metabolism of creatine, excessive creatine ingestion, or following therapy that affects renal tubular secretion. BUN/Creatinine Ratio 17 9 - 20 02/14/2025 6:48 AM EDT [facility] Calcium 8.6 8.6 - 10.4 mg/dL 02/14/2025 6:48 AM [facility] BLOOD SPECIMEN / Unknown 02/14/2025 6:48 AM EDT 02/14/2025 6:59 AM EDT us Iain Aldana MD CHEMISTRY ORDERABLES Edie marcano Result [facility] [address] [phone] * (ABNORMAL) CBC auto differential (02/14/2025 6:48 AM EDT) Only the most recent of2 resultswithin the time period is included. WBC 5.8 3.5 - 11.3 k/uL 02/14/2025 6:48 AM [facility] RBC 4.51 3.95 - 5.11 m/uL 02/14/2025 6:48 AM [facility] Hemoglobin 12.5 11.9 - 15.1 g/dL 02/14/2025 6:48 AM [facility] Hematocrit 35.8(L) 36.3 - 47.1 % 02/14/2025 6:48 AM [facility] MCV 79.4(L) 82.6 - 102.9 fL 02/14/2025 6:48 AM [facility] MCH 27.7 25.2 - 33.5 pg 02/14/2025 6:48 AM T [facility] MCHC 34.9(H) 28.4 - 34.8 g/dL 02/14/2025 6:48 AM [facility] RDW 13.1 11.8 - 14.4 % 02/14/2025 6:48 AM [facility] Platelets 268 138 - 453 k/uL 02/14/2025 6:48 AM [facility] MPV 9.8 8.1 - 13.5 fL 02/14/2025 6:48 AM [facility] NRBC Automated 0.0 0.0 per 100 WBC 02/14/2025 6:48 AM [facility] Neutrophils % 64 36 - 65 % 02/14/2025 6:48 AM [facility] Lymphocytes % 26 24 - 43 % 02/14/2025 6:48 AM [facility] Monocytes % 7 3 - 12 % 02/14/2025 6:48 AM [facility] Eosinophils % 2 1 - 4 % 02/14/2025 6:48 AM [facility] Basophils % 1 0 - 2 % 02/14/2025 6:48 AM [facility] Immature Granulocytes % 0 0 % 02/14/2025 6:48 AM [facility] Neutrophils Absolute 3.71 1.50 - 8.10 k/uL 02/14/2025 6:48 AM [facility] Lymphocytes Absolute 1.50 1.10 - 3.70 k/uL 02/14/2025 6:48 AM [facility] Monocytes Absolute 0.42 0.10 - 1.20 k/uL 02/14/2025 6:48 AM [facility] Eosinophils Absolute 0.09 0.00 - 0.44 k/uL 02/14/2025 6:48 AM [facility] Basophils Absolute 0.03 0.00 - 0.20 k/uL 02/14/2025 6:48 AM [facility] Immature Granulocytes Absolute <0.03 0.00 - 0.30 k/uL 02/14/2025 6:48 AM EDT [facility] 02/14/2025 6:48 AM EDT 02/14/2025 6:59 AM EDT Iain Aldana MD HEMATOLOGY ORDERABLES Fin al Result Performing Organization Address [facility]/ZIP Co de Phone Number [facility] [address] [place] [address] * Magnesium (02/14/2025 6:48 AM EDT) Magnesium 1.8 1.6 - 2.6 mg/dL 02/14/2025 6:48 AM EDT [facility] 02/14/2025 6:48 AM EDT 02/14/2025 6:59 AM EDT Iain Aldana MD CHEMISTRY ORDERABLES Edie l Result Performing Organization Address [facility] Co de Phone Number [facility] [address] [place] [address] * CT CHEST ABDOMEN PELVIS W CONTRAST Additional Contrast? None (02/13/2025 10:34 PM EDT) Anatomical Region Laterality Modality Chest, Abdomen, Pelvis, Hip Comp uted Tomography 02/13/2025 11:3 7 PM EDT Impressions 02/13/2025 11:47 PM EDT 1. No pneumoperitoneum or findings to suggest bowel injury. 2. Borderline dilation of the appendix of minimal wall thickening but no periappendiceal stranding. Findings are favored within normal limits but could represent very early or mild appendicitis in the appropriate clinical setting. 3. Trace dependent right pelvic free fluid is likely physiologic. 4. There is a 2.1 cm right thyroid nodule. See recommendations for follow-up below. 5. The endometrium measures 1.6 cm in thickness, which is upper limits of normal for premenopausal patient. Suspected fibroid of the posterior inferior uterine segment. Consider pelvic ultrasound on a nonemergent basis. RECOMMENDATIONS: Incidental right thyroid nodule measuring 2.1 cm. Recommend non-emergent thyroid ultrasound. Reference: J Am Speedy Radiol. 2015 Nov;12(2): 143-50 Left sub-cm adrenal mass, probably benign. No follow-up imaging is recommended. JACR 2017 May; 14(8):1038-44, JCAT 2016 Dec-Jan; 40(2):194-200, Urol J spring; 3(2):71-4. Narrative 02/13/2025 11:47 PM EDT EXAMINATION: CT OF THE CHEST, ABDOMEN, AND PELVIS WITH CONTRAST 02/13/2025 10:34 pm TECHNIQUE: CT of the chest, abdomen and pelvis was performed with the administration of intravenous contrast. Multiplanar reformatted images are provided for review. Automated exposure control, iterative reconstruction, and/or weight based adjustment of the mA/kV was utilized to reduce the radiation dose to as low as reasonably achievable. COMPARISON: None HISTORY: ORDERING SYSTEM PROVIDED HISTORY: recent endoscopy and colonoscopy, RUQ, epigastric and RLQ since procedure, [place] TECHNOLOGIST PROVIDED HISTORY: recent endoscopy and colonoscopy, RUQ, epigastric and RLQ since procedure, [place] Decision Support Exception - unselect if not a suspected or confirmed emergency medical condition->Emergency Medical Condition (MA) FINDINGS: Chest: Chest Wall and Thoracic Inlet: No axillary or supraclavicular lymphadenopathy. There is a 2.1 cm right thyroid nodule. Mediastinum and Mnoica: No mediastinal lymphadenopathy. Normal caliber of the thoracic aorta. The heart is normal in size. No pericardial effusion. Lungs/Pleura: No focal airspace disease or pulmonary edema. No suspicious pulmonary nodules. No pleural effusion. Bones: No acute or suspicious osseous findings. Abdomen/Pelvis: Organs: Diffuse hepatic steatosis. Prior cholecystectomy. The spleen, pancreas, and right adrenal gland are unremarkable. There is a 0.9 cm left adrenal nodule. No suspicious renal lesion. No hydronephrosis or renal calculi. GI/Bowel: No evidence of bowel obstruction or findings to suggest bowel injury. The appendix is borderline dilated with minimal wall thickening and enhancement but no significant adjacent inflammatory stranding. Pelvis: The bladder is unremarkable. The endometrium measures 1.6 cm in thickness, which is upper limits of normal for premenopausal patient. Suspected fibroid of the posteroinferior uterine segment. Unremarkable CT appearance of the ovaries. Peritoneum/Retroperitoneum: No retroperitoneal, mesenteric, or pelvic lymphadenopathy. Trace pelvic free fluid is likely physiologic. No pneumoperitoneum. The abdominal aorta is normal in caliber. Bones/Soft Tissues: No acute osseous or soft tissue abnormality. Procedure Note Marysol Hartley MD - 02/13/2025 EXAMINATION: CT OF THE CHEST, ABDOMEN, AND PELVIS WITH CONTRAST 02/13/2025 10:34 pm TECHNIQUE: CT of the chest, abdomen and pelvis was performed with the administrationof intravenous contrast. Multiplanar reformatted images are provided forreview. Automated exposure control, iterative reconstruction, and/or weightbased adjustment of the mA/kV was utilized to reduce the radiation dose to aslow as reasonably achievable. COMPARISON: None HISTORY: ORDERING SYSTEM PROVIDED HISTORY: recent endoscopy and colonoscopy, RUQ, epigastric and RLQ since procedure, [place] TECHNOLOGIST PROVIDED HISTORY: recent endoscopy and colonoscopy, RUQ, epigastric and RLQ since procedure,[place] Decision Support Exception - unselect if not a suspected or confirmed emergency medical condition->Emergency Medical Condition (MA) FINDINGS: Chest: Chest Wall and Thoracic Inlet: No axillary or supraclavicular lymphadenopathy. There is a 2.1 cm right thyroid nodule. Mediastinum and Monica: No mediastinal lymphadenopathy. Normal caliber ofthe thoracic aorta. The heart is normal in size. No pericardial effusion. Lungs/Pleura: No focal airspace disease or pulmonary edema. Nosuspicious pulmonary nodules. No pleural effusion. Bones: No acute or suspicious osseous findings. Abdomen/Pelvis: Organs: Diffuse hepatic steatosis. Prior cholecystectomy. The spleen, pancreas, and right adrenal gland are unremarkable. There is a 0.9 cmleft adrenal nodule. No suspicious renal lesion. No hydronephrosis or renal calculi. GI/Bowel: No evidence of bowel obstruction or findings to suggest bowel injury. The appendix is borderline dilated with minimal wall thickeningand enhancement but no significant adjacent inflammatory stranding. Pelvis: The bladder is unremarkable. The endometrium measures 1.6 cm in thickness, which is upper limits of normal for premenopausal patient. Suspected fibroid of the posteroinferior uterine segment. UnremarkableCT appearance of the ovaries. Peritoneum/Retroperitoneum: No retroperitoneal, mesenteric, or pelvic lymphadenopathy. Trace pelvic free fluid is likely physiologic. No pneumoperitoneum. The abdominal aorta is normal in caliber. Bones/Soft Tissues: No acute osseous or soft tissue abnormality. IMPRESSION: 1. No pneumoperitoneum or findings to suggest bowel injury. 2. Borderline dilation of the appendix of minimal wall thickening but no periappendiceal stranding. Findings are favored within normal limitsbut could represent very early or mild appendicitis in the appropriateclinical setting. 3. Trace dependent right pelvic free fluid is likely physiologic. 4. There is a 2.1 cm right thyroid nodule. See recommendations forfollow-up below. 5. The endometrium measures 1.6 cm in thickness, which is upper limitsof normal for premenopausal patient. Suspected fibroid of the posteriorinferior uterine segment. Consider pelvic ultrasound on a nonemergent basis. RECOMMENDATIONS: Incidental right thyroid nodule measuring 2.1 cm. Recommend non-emergent thyroid ultrasound. Reference: J Am Speedy Radiol. 2015 Nov;12(2): 143-50 Left sub-cm adrenal mass, probably benign. No follow-up imaging is recommended. JACR 2017 May; 14(8):1038-44, JCAT 2016 Dec-Jan; 40(2):194-200, Urol J2spring; 3(2):71-4. Harpreet Koroma MD IMG CT ORDERABLES Final R esult * Lipase (02/13/2025 9:40 PM EDT) Lipase 30 13 - 60 U/L 02/13/2025 9:40 PM EDT [facility] Blood BLOOD SPECIMEN / Unknown 02/13/2025 9:40 PM EDT 02/13/2025 10:08 PM EDT Harpreet Koroma MD CHEMISTRY ORDERABLES Edie l Result [facility] [address] [place] [address], [facility] [phone] * Lactic Acid (02/13/2025 9:40 PM EDT) Lactic Acid 1.2 0.5 - 2.2 mmol/L 02/13/2025 9:40 PM EDT [facility] Blood BLOOD SPECIMEN / Unknown 02/13/2025 9:40 PM EDT 02/13/2025 10:08 PM EDT us Harpreet Koroma MD CHEMISTRY ORDERABLES Edie marcano Result [facility] [address] [phone] * (ABNORMAL) CMP (02/13/2025 9:40 PM EDT) Sodium 140 136 - 145 mmol/L 02/13/2025 9:40 PM EDT [facility] Potassium 3.4(L) 3.7 - 5.3 mmol/L 02/13/2025 9:40 PM EDT [facility] Chloride 102 98 - 107 mmol/L 02/13/2025 9:40 PM EDT [facility] CO2 24 20 - 31 mmol/L 02/13/2025 9:40 PM EDT [facility] Anion Gap 14 9 - 16 mmol/L 02/13/2025 9:40 PM T [facility] Glucose 89 74 - 99 mg/dL 02/13/2025 9:40 PM T [facility] BUN 13 6 - 20 mg/dL 02/13/2025 9:40 PM T [facility] Creatinine 0.7 0.50 - 0.90 mg/dL 02/13/2025 9:40 PM T [facility] Est, Glom Filt Rate >90 >60 mL/min/1.7 3m2 02/13/2025 9:40 PM T [facility] Comment: These results are not intended for use in patients <18 years of age. eGFR results are calculated without a race factor using the 2020 CKD-EPI equation. Careful clinical correlation is recommended, particularly when comparing to results calculated using previous equations. The CKD-EPI equation is less accurate in patients with extremes of muscle mass, extra-renal metabolism of creatine, excessive creatine ingestion, or following therapy that affects renal tubular secretion. BUN/Creatinine Ratio 19 9 - 20 02/13/2025 9:40 PM EDT [facility] Calcium 9.8 8.6 - 10.4 mg/dL 02/13/2025 9:40 PM EDT [facility] Total Protein 8.3 6.6 - 8.7 g/dL 02/13/2025 9:40 PM EDT [facility] Albumin 4.9 3.5 - 5.2 g/dL 02/13/2025 9:40 PM EDT [facility] Albumin/Globulin Ratio 1.4 1.0 - 2.5 02/13/2025 9:40 PM EDT [facility] Total Bilirubin 0.5 0.00 - 1.20 mg/dL 02/13/2025 9:40 PM EDT [facility] Alkaline Phosphatase 69 35 - 104 U/L 02/13/2025 9:40 PM EDT [facility] ALT 80(H) 10 - 35 U/L 02/13/2025 9:40 PM EDT [facility] AST 55(H) 10 - 35 U/L 02/13/2025 9:40 PM EDT [facility] Blood BLOOD SPECIMEN / Unknown 02/13/2025 9:40 PM EDT 02/13/2025 10:08 PM EDT us Harpreet Koroma MD CHEMISTRY ORDERABLES Edie marcano Result [facility] [address] [phone] * Gastrointestinal Panel, Molecular (01/27/2025 11:01 AM EDT) Specimen Description .FECES 11:01 AM EDT [facility] Campylobacter PCR NEGATIVE: No Campylobacter spp. (jejuni or coli) DNA Detected NEGATIVE: No Campylobacter spp. (jejuni or coli) DNA Detecte 11:01 AM EDT [facility] Salmonella PCR NEGATIVE: No Salmonella spp. DNA Detected NEGATIVE: No Salmonella spp. DNA Detected 11:01 AM EDT [facility] Shigatoxin Gene PCR NEGATIVE: No Shiga toxin-producin g gene(s) Detected NEGATIVE: No Shiga toxin-producin g gene(s) Detected 5 11:01 AM EDT [facility] Shigella Sp PCR NEGATIVE: No Shigella spp. / EIEC DNA Detected NEGATIVE: No Shigella spp. / EIEC DNA Detected 5 11:01 AM EDT [facility] Plesiomonas Shigelloides PCR NEGATIVE: No Plesionomas shigelloides DNA Detected NEGATIVE: No Plesionomas shigelloides DNA Detected 5 11:01 AM EDT [facility] Vibrio PCR NEGATIVE: No Vibrio (V. vulnificus, V, parahaemolytic us and V. cholerae) DNA Detected NEGATIVE: No Vibrio (V. vulnificus, V, parahaemolytic us and 5 11:01 AM EDT [facility] E Coli Enterotoxigenic PCR NEGATIVE: No Enterotoxigeni c E. coli (ETEC) Heat-labile and heat-stable (LT/ST) DNA Detected NEGATIVE: No Enterotoxigeni c E. coli (ETEC) Heat-labile and 5 11:01 AM T [facility] Yersinia Enterocolitica PCR NEGATIVE: No Yersinia enterocolitica DNA Detected NEGATIVE: No Yersinia enterocolitica DNA Detected 5 11:01 AM T [facility] STOOL SPECIMEN / Unknown 01/27/2025 11:01 AM EDT 01/28/2025 12:04 PM EDT Steffi Bermudez CURRENCY EXCHANGE SPECIALIST - SALES REPRESENTATIVE SUPERVISOR MICROBIOLOGY - G ENERAL ORDERABLES Final Result [facility] [address] [place] [address], [facility] [phone] [address] [phone] * (ABNORMAL) Calprotectin Stool (01/27/2025 11:01 AM EDT) Calprotectin, Fecal 61(H) <=49 ug/g 01/27/2025 11:01 AM EDT [facility] Comment: (NOTE) REFERENCE INTERVAL: Calprotectin, Fecal by Immunoassay Less than 50 ug/g........Normal 50-120 ug/g..............Borderline elevated, test should be re-evaluated in 4-6 weeks. 121 ug/g or greater......Elevated Performed By: [facility] [address] [place] [address] Telecommunications Repairer: Yuriy Cardenas MD, PhD CLIA Number: [id number] 01/27/2025 11:0 1 AM EDT 01/28/2025 12:04 PM EDT Steffi Bermudez [facility] BODY FLUIDS AND STOOLS ORDERABLES Final Result Performing Organization Address City/[facility]/ZIP Co de Phone Number [facility] [address] [place] [address], [facility] [phone] [facility] [address] [phone] * H. pylori antigen (01/27/2025 11:01 AM EDT) Specimen Description .FECES 01/27/2025 11:01 AM EDT [facility] Direct Exam NEGATIVE 01/27/2025 11:01 AM EDT [facility] STOOL SPECIMEN / Unknown 01/27/2025 11:01 AM EDT 01/28/2025 12:04 PM EDT [facility]ly [facility] BODY FLUIDS AND STOOLS ORDERABLES Final Result [facility] [address] [place] [address], [facility] [phone] [address], [facility] [phone] * Hemoglobin A1C (09/23/2024 10:48 AM EST) Hemoglobin A1C 4.5 4.0 - 6.0 % 09/23/2024 10:48 AM EST [facility] Estimated Avg Glucose 82 mg/dL 09/23/2024 10:48 AM EST [facility] Comment: The ADA and AACC recommend providing the estimated average glucose result to permit better patient understanding of their HBA1c result. 09/23/2024 10:4 8 AM EST 09/23/2024 10:49 AM EST us Michael Chávez MD CHEMISTRY ORDERABLES Final Resu lt [facility] [address] [place] [address], [facility] [phone] [facility] [address] [place] [address], [facility] [phone] * Human papillomavirus (HPV) DNA probe thin prep high risk (08/28/2022 7:30 AM EST) Specimen Description .CERVIX 08/28/2022 7:30 AM [facility] HPV Sample .THIN PREP 08/28/2022 7:30 AM EST [facility] HPV, Genotype 16 Not Detected Not Detected 08/28/2022 7:30 AM [facility] HPV, Genotype 18 Not Detected Not Detected 08/28/2022 7:30 AM [facility] HPV, High Risk Other Not Detected Not Detected 08/28/2022 7:30 AM [facility] HPV, Interpretation 08/28/2022 7:30 AM [facility] Comment: This test amplifies and detects DNA of 14 high-risk HPV types associated with cervical cancer and its precursor lesions (HPV types 16,18, 31, 33, 35, 39, 45, 51, 52, 56, 58, 59, 66, and 68). Sensitivity may be affected by specimen collection methods, stage of infection, and the presence of interfering substances. Results should be interpreted in conjunction with other available laboratory and clinical data. A negative high-risk HPV result does not exclude the possibility of future cytologic HSIL or underlying CIN2-3 or cancer. This test is intended for medical purposes only and is not valid for the evaluation of suspected sexual abuse or for other forensic purposes. CERVICAL SWAB / Unknown 08/28/2022 7:30 AM EST us Lizbet Griffin DO HEMATOLOGY ORDERABLES Final Result [facility] [address] [place] [address], [facility] [phone] [facility] [address] [place] [address], [facility] [phone] * PAINTING MANAGER Cytology (08/28/2022 7:30 AM EST) Cytology Report INTERPRETATION Cervical material, (ThinPrep vial, Imaging-assisted review): Specimen Adequacy: Satisfactory for evaluation. - Endocervical/trans formation zone component present. Descriptive Diagnosis: Negative for intraepithelial lesion or malignancy. Comments: Specimen was screened at [facility], [address] [facility]. [facility] [address] Caustic Preparer: TAVIA Pitt(ASCP) Electronically Signed Out jaime/09/09/2022 Procedure/Addendum HPV Procedure Report Date Ordered: 08/29/2022 Status: Signed Out Date Complete: 08/30/2022 By: System Interface Date Reported: 08/30/2022 Sample: HPV Type 16 Result: Not Detected Ref Range: (Not Detected) Sample: HPV Type 18 Result: Not Detected Ref Range: (Not Detected) Sample: Other High Risk HPV Result: Not Detected Ref Range: (Not Detected) Sample: HPV Interp Result: Ref Range: (Not Detected) This test amplifies and detects DNA of 14 high-risk HPV types associated with cervical cancer and its precursor lesions (HPV types 16,18, 31, 33, 35, 39, 45, 51, 52, 56, 58, 59, 66, and 68). Sensitivity may be affected by specimen collection methods, stage of infection, and the presence of interfering substances. Results should be interpreted in conjunction with other available laboratory and clinical data. A negative high-risk HPV result does not exclude the possibility of future cytologic HSIL or underlying CIN2-3 or cancer. This test is intended for medical purposes only and is not valid for the evaluation of suspected sexual abuse or for other forensic purposes. Source: A: Cervical material, (ThinPrep vial, Imaging-assisted review) Clinical History Z01.419 Routine inside sales advisor exam without abnormal findings Co-Test: ThinPrep Pap with high risk HPV testing GYNECOLOGIC CYTOLOGY REPORT Patient Name: KRISTEN LEWIS [facility] Rec: [id number] Path Number: [id number] [facility] CONSULTING PATHOLOGISTS [facility] ANATOMIC PATHOLOGY [address] [place] [phone] [facility] CERVICAL MATERIAL 08/28/2022 7:30 AM EST 08/29/2022 7:30 AM EST Lizbet Griffin DO PATHOLOGY/CYTOLOGY OR DERABLES Final Result Performing Organization Address [facility]/ZIP Co de Phone Number [address] [address], [facility] [phone] [place] [phone] [phone] * Hepatitis Panel, Acute (12/01/2021 3:08 PM EST) Pathologist [facility] Hepatitis B Surface Ag NONREACTIVE NONREACTIVE 12/01/2021 3:08 PM EST [facility] Hepatitis C Ab NONREACTIVE NONREACTIVE 12/01/19 3:08 PM EST [facility] Comment: The hepatitis C procedure used in our laboratory is a Chemiluminescent test specific for three recombinant HCV antigens. A negative anti-HCV result indicates that the antibodies to hepatitis C virus are not present at this time. Individuals with reactive anti-HCV should be considered infected and infectious until proven otherwise. Confirmation of all equivocal or reactive results is recommended by ordering HCV RNA by PCR. Hep B Core Ab, IgM NONREACTIVE NONREACTIVE 11/14 3:08 PM EST [facility] Hep A IgM NONREACTIVE NONREACTIVE 12/01/2021 3:08 PM EST [facility] 12/01/2021 3:08 PM EST 12/01/2021 3:09 PM EST Michael Chávez MD IMMUNOLOGY ORDERABLES Final Res ult [facility] [address] [place] [address], [facility] [phone] [facility] [address] [place] [address], [facility] [phone] from Last 3 Months or Most Recently Relevant to Health Maintenance Insurance [facility] Advance Directives * Full Code (Latest Code Status on File) Date Activated Date Inactivated Comments 02/14/2025 1:55 AM 02/14/2025 7:04 PM * Full Code Date Activated Date Inactivated Comments 07/14/2021 9:57 AM 07/14/2021 2:19 PM * Full Code Date Activated Date Inactivated Comments 09/02/2020 7:25 AM 09/02/2020 2:12 PM * Full Code Date Activated Date Inactivated Comments 07/21/2018 9:23 AM 07/21/2018 3:54 PM Care Teams Commodity Merchant Relationship Specialty Start Date End Date Michael Chávez MD [address] [phone] PCP - General 10/22/13
--- OUTSIDE RECORDS SUMMARY | 2025-03-15 01:25 | XMS_ITS | Clinical Summary ---
Author Organization [facility] Address [address] [place] [address] Care Team Providers Care Seat Trimmer Name Role Phone Pinky Orozco CNP Primary Care Provider [phone] Allergies Active Allergy Reactions Criticality Noted Date Comments Beta-Blockers (Beta-Adrenergic Blocking Agts) Rash,Other: See Comments Low 03/19/2019 Diltiazem Rash 03/29/2020 Latex Anaphylaxis,Rash,Lily rtne ss of Breath,Swelling High 07/01/2014 Ondansetron Other: See Comments Low 11/16/2017 Migraines Medications amLODIPine (NORVASC) 5 mg tablet Take 1 tablet by mouth two times a day. 10/29/2023 Active Cholecalciferol , Vitamin D3, 50 mcg (2,000 unit) cap Take 1 capsule by mouth once daily. Active fluticasone (FLONASE) 50 mcg/actuation nasal spray Use 1 [place] in each nostril once daily. Active hydrOXYzine pamoate (VISTARIL) 25 mg capsule Take by mouth as needed. 08/24/2020 Active levothyroxine (SYNTHROID) 137 mcg tablet Take 137 mcg by mouth once daily. 09/29/2024 09/24/20 25 Active loratadine 10 mg cap Take 1 capsule by mouth once daily. Active magnesium oxide (MAG-OX) 400 mg (241.3 mg magnesium) tablet Take 1 tablet by mouth two times a day. 08/20/2024 Active metFORMIN ER (GLUCOPHAGE XR) 500 mg 24 hr tablet Take 1,000 mg by mouth two times a day. 09/21/2024 Active nicotine (NICODERM) 14 mg/24 hr Apply 1 Patch as directed every 24 hours. Active omeprazole (PRILOSEC) 40 mg capsule Take 1 capsule by mouth once daily. Active oxaprozin (DAYPRO) 600 mg tablet Take 600 mg by mouth once daily. Active M- PLUS 27 mg iron- 1 mg 1 tablet. 12/18/2024 Activ e QUEtiapine (SEROQUEL) 50 mg tablet Take 50 mg by mouth daily at bedtime. Active venlafaxine ER (EFFEXOR XR) 75 mg 24 hr capsule 150 mg. 08/24/2020 Active Active Problems No known active problems Encounters Date Type Department Care Team Description 01/11/2025 2:30 PM EDT Office Visit [facility] [address] [place] [address] Aden Covington II, OD Ocular hypertension, bilateral (Primary Dx); Allergic conjunctivitis of both eyes; Myopia, bilateral 12/30/2024 3:30 PM EDT Office Visit [facility] [address] [place] [address] Carlos Stacy, OD Conjunctival edema, bilateral (Primary Dx); Dry eye syndrome of bilateral lacrimal glands; Ocular hypertension, bilateral 12/23/2024 3:30 PM EDT Office Visit [facility] [address] [place] [address] Carlos Stacy, OD Conjunctival edema, bilateral (Primary Dx) 12/18/2024 9:15 AM EST Office Visit [facility] [address] [place] [address] Carlos Stacy, OD Conjunctival edema, bilateral (Primary Dx) 12/18/2024 Travel from Last 3 Months Family History Medical History Relation Comments other Mother Relation Status Comments Mother Social History Tobacco Use Types Packs/Day Years Used Date Smoking Tobacco: Former Cigarettes Smokeless Tobacco: Never Tobacco Cessation:Counseling Given: Not Answered Area Deprivation Index Answer Date Harman rded National Score (1-100), lower number is lower ri sk 82 12/23/2024 State Score (1-10), lower number is lower risk 7 12/23/2024 Data from: https://www.neighborhoodatlas.medicine.[facility].edu/. Last address used for calculation [address] [place] [address] 12/23/2024 Comments Unknown Sex and Gender Information Value Date Recorded Sex Assigned at Female 01/11/2025 2:23 PM EDT Legal Sex Female 8:13 AM EST Gender Identity Female 01/11/2025 2:22 PM EDT Sexual Orientation Straight 01/11/2025 2: 22 PM EDT Plan of Treatment Upcoming Encounters Date Type Department Care Team (Latest Contact Info) Description 07/20/2025 2:30 PM EDT Office Visit [facility] [address] [place] [address] Aden Covington II, OD [address] [place] [address] Pressure check ([employer]) Health Maintenance Due Date Last Done Comments Anxiety Screening 2007 Depression Screening 2007 HIV Screening 2007 Hepatitis C Screening 2007 Hepatitis B Vaccine (1 of 3 - 19+ 3-dose series) 2008 Cervical Cancer Screening 2010 Covid-19 Vaccine (1 2023-2 5 season) 2024 DTaP,Tdap,Td Vaccine (2 - Td or Tdap) 03/22/2032 03/22/2022 Influenza Vaccine Completed 07/27/2024, , 07/19/2022, Additional history exists Procedures Procedure Name Priority Date/Time Associated Diagnosis Comments FUNDUS PHOTOS OU (BOTH EYES) Routine 01/11/2025 3:23 PM EDT Ocular hypertension, bilateral OCT OPTIC NERVE CIRRUS OU (BOTH EYES) Routine 01/11/2025 3:21 PM EDT Ocular hypertension, bilateral VISUAL FIELD 24-2 OU (BOTH EYES) Routine 01/11/2025 3:19 PM EDT Ocular hypertension, bilateral from Last 3 Months Results * FUNDUS PHOTOS OU (BOTH EYES) (01/11/2025 3:23 PM EDT) Anatomical Region Laterality Modality Other Narrative 01/11/2025 3:58 PM EDT Date of Procedure 01/11/2025. Reverberatory Furnace Operator Information Bench Worker: boris. Start time: 3:21 PM. C/D Ratio Right Eye 0.45. Left Eye 0.55. Disc Right Eye Cupping. Left Eye Cupping. Macula Right Eye Normal. Left Eye Normal. Periphery Right Eye Normal. Left Eye Normal. Notes Monitor us Aden H Cooperrider II, OD OPHTHALMOLOGY Final R esult * OCT OPTIC NERVE CIRRUS OU (BOTH EYES) (01/11/2025 3:21 PM EDT) Anatomical Region Laterality Modality Other Narrative 01/11/2025 3:59 PM EDT Date of Procedure 01/11/2025. Reverberatory Furnace Operator Information Bench Worker: boris. Start time: 3:19 PM. Stop time: 3:21 PM. Quality Right Eye Good. Left Eye Good. NFL Interpretation Right Eye Normal. Left Eye Normal. Ganglion Cell Layer Thickness Right Eye Temporal loss. Left Eye Temporal loss. Interval Change Right Eye Initial. Left Eye Initial. Notes Monitor us Aden H Cooperrider II, OD OPHTHALMOLOGY Final R esult * VISUAL FIELD 24-2 OU (BOTH EYES) (01/11/2025 3:19 PM EDT) Anatomical Region Laterality Modality Other Narrative 01/11/2025 3:59 PM EDT Date of Procedure 01/11/2025. Reverberatory Furnace Operator Information Bench Worker: boris. Start time: 3:10 PM. Stop time: 3:19 PM. Reliability Right Eye Borderline. Left Eye Good. Interpretation Right Eye Non-specific defect. Left Eye Normal. Interval Change Right Eye Initial. Left Eye Initial. Notes Monitor Aden H Cooperrider II, OD OPHTHALMOLOGY Final R esult from Last 3 Months Insurance [facility] MEDICAID Care Teams Seat Trimmer Relationship Specialty Start Date End Date Pinky Orozco CNP [address] [place] [address] PCP - General Internal Medicine 12/18/24
--- OUTSIDE RECORDS SUMMARY | 2025-03-15 01:25 | XMS_ITS | Clinical Summary ---
Author Organization [facility] Address [address] [place] [address] Care Team Providers Care Nurse Care Manager Name Role Phone Michael Chávez MD Primary Care Provider [phone] Stalin Clarke MD Unavailable [phone] Michele Peterson DO Unavailable [phone] Allergies Active Allergy Reactions Criticality Noted Date Comments Beta Adrenergic Blockers Rash Low 03/19/2019 Diltiazem 03/29/2020 Latex Anaphylaxis,Rash,Lily rtnes s of breath,Swelling High 07/01/2014 Ondansetron Headache,Other Low 11/16/2017 Migraines Medications amLODIPine (Norvasc) 5 MG tablet 4 Active cholecalciferol (Vitamin D-3) 50 MCG (1999) capsule Take 1 capsule by mouth Daily Active fluticasone (Flonase) 50 MCG/ACT nasal spray Administer 1 spray into each nostril Daily 4 Active Vistaril 25 MG capsule 4 capsule at bedtime as needed Orally Once a day prn Active Loratadine 10 MG capsule Take 1 capsule by mouth Daily Active metFORMIN XR (Glucophage-XR) 500 MG 24 hr tablet TAKE TWO (2) TABLETS BY MOUTH IN THE MORNING AND AT BEDTIME Active nicotine (Nicoderm, Step 2) 14 MG/24HR patch Place 1 patch on the skin Active omeprazole (PriLOSEC) [address] capsule Take 1 capsule by mouth Daily Active oxaprozin (Daypro) 600 MG tablet Active Iebnlw-YdUgw-Uh tbn-Jt-Bqier 3 ( + Complete Multi) 18-0.8 & 290 MG therapy as directed Orally Active QUEtiapine (SEROquel) 50 MG tablet Active venlafaxine XR (Effexor XR) 150 MG 24 hr tablet Active magnesium oxide (Mag-Ox) 400 mg tablet Take 1 tablet by mouth in the morning and 1 tablet before bedtime. Active levothyroxine (Synthroid, Levoxyl) 137 MCG tabletIndicatio ns:Christie's disease (CMS/HCC) Take 137 mcg by mouth at bedtime 90 tablet 3 4 09/24/20 Active Active Problems Problem Noted Date Diagnosed Date [...] 10/28/2019 Left lower quadrant pain 11/20/2018 Immunizations Immunization Administration Dates Next Due Influenza, injectable, quadr ivalent, preservative free 08/11/2023,07/01/2018,08/09/2016 Influenza, recombinant, quad rivalent, injectable, preservative free 07/19/2022,06/30/2021,07/30/2020,07/31 Influenza, seasonal, injectable 07/15/2018 Influenza, seasonal, injecta ble, preservative free 07/27/2024,07/26/2015 Pneumococcal Polysaccharide PPSV23 07/01/2018 Tdap 03/22/2022 Family History Medical History Relation Name Comments Diabetes Brother Pavan Mental illness Brother Pavan Arthritis Father Candido Bipolar disorder Father Candido Depression Father Candido Dislocations Father Candido Mental illness Father Candido Schizophrenia Father Candido Severe sprains Father Candido Cancer Maternal Grandfather Nirav Ulcerative colitis Maternal Grandfather Nirav Cancer Maternal Grandmother Enedina Arthritis Mother Riya Hyperlipidemia Mother Riya Miscarriages / Stillbirths Mother Riya Osteoporosis Mother Riya Rashes / Skin problems Mother Riya Severe sprains Mother Riya Vision loss Mother Riya COPD Mother's Sister Pat Mental illness Mother's Sister Pat Alcohol abuse Paternal Grandfather Bakari Diabetes Paternal Grandfather Bakari Heart disease Paternal Grandfather Bakari Heart failure Paternal Grandfather Bakari Hypertension Paternal Grandfather Bakari Stroke Paternal Grandfather Bakari Relation Name Status Comments Brother Pavan Father Candido Maternal Grandfather Ray Maternal Grandmother Enedina Mother Riya Alive Mother's Sister Pat Paternal Grandfather Bakari Social History Tobacco Use Types Packs/Day Years Used Date Smoking Tobacco: Former Cigarettes 0.3 10 Smokeless Tobacco: Never Tobacco Cessation:Counseling Given: Not Answered Comments:use patches daily Alcohol Use Standard Drinks/Week Comments Not Currently 0 (1 standard drink = 0.6 oz pur e alcohol) Socially Comments Unknown Sex and Gender Information Value Date Recorded Sex Assigned at Female 02/06/2024 5:35 PM EDT Legal Sex Female 6:51 PM EDT Gender Identity Female 02/06/2024 5:35 PM EDT Sexual Orientation Straight 02/06/2024 5: 35 PM EDT Last Filed Vital Signs Vital Sign Reading Time Taken Comments Blood Pressure 134/86 10/27/2024 10:14 AM EST Pulse 89 10/27/2024 10:14 AM EST Temperature - - Respiratory Rate 18 09/29/2024 11:06 AM EST Oxygen Saturation 99% 10/27/2024 10:14 AM EST Inhaled Oxygen Concentration - - Weight 96.6 kg (213 lb) 11/24/2024 11:02 AM EST Height 165.1 cm (5' 5 ) 11/24/2024 11:02 AM EST Body Mass Index 35.45 11/24/2024 11:02 AM EST Plan of Treatment Upcoming Encounters Date Type Department Care Team (Late st Contact Info) Description 05/24/2025 2:00 PM EDT Office Visit [facility] [address] [place] [address] Michele Peterson DO [address] [facility] [place] [address] 09/28/2025 11:00 AM EST Office Visit [facility] [address] [place] [phone] Stalin Clarke MD [address] [place] [address] Insurance [employer] Care Teams Nurse Care Manager Relationship Specialty Start Date End Date Michael Chávez MD PCP - General Family Medicine 02/07/24 Stalin Clarke MD [address] [place] [address] Referring Physician Endocrinology 10/27/24 Michele Peterson DO [address] [place] [address] Otolaryngology 10/27/24
--- OUTSIDE RECORDS SUMMARY | 2025-03-15 01:25 | XMS_ITS | Encounter Summary ---
Author Organization [facility] Address [address] [place] [address] Care Team Providers Care Bicycle Subassembler Name Role Phone Michael Chávez MD Primary Care Provider [phone] Reason for Referral * Imaging (Routine) - Closed Specialty Diagnoses / Procedures Referred By Contac t Referred To Contact Radiology Diagnoses Tooth infection Procedures CT SINUS WO CONTRAST Michael Chávez MD [address] [place] [address] Phone: tel: fax: Referral ID Status Reason Start Date Expiration Date Visits Re quested Visits Authorized [id number] Closed 03/08/2023 03/07/2024 1 1 Encounter Details Date Type Department Care Team (Latest Contact Info) Description 03/08/2023 Transcribe Orders [facility] [address] [phone] Michael Chávez MD [address] [place] [address] Tooth infection (Primary Dx) Social History Tobacco Use Types [...] Description 09/14/2025 1:45 PM EST Office Visit [facility] Part of [address] [place] [phone] Lizbet Griffin, DO [address] [place] [address] yearly Scheduled Orders Name Type Priority Associated Diagnoses Orde r Schedule CT SINUS WO CONTRAST Imaging Routine Tooth infection Expected: 03/08/2023, Expires: 03/08/2024 documented as of this encounter Visit Diagnoses Diagnosis Tooth infection- Primary Acute apical periodontitis of pulpal origin documented in this encounter Additional Health Concerns Infection Onset Date Last Indicated Resolved Time C-diff Rule Out 02/14/2025 02/14/2025 02/14/2025 7 :04 PM EDT documented as of this encounter Care Teams Bicycle Subassembler Relationship Specialty Start Date End Date Michael Chávez MD [address] [place] [address] PCP - General 10/22/13 documented as of this encounter
--- OUTSIDE RECORDS SUMMARY | 2025-03-15 01:26 | XMS_ITS | CCD ---
Author Organization [facility] CliniSyfl Care Team Providers Care Supervisor Brine Name Role Phone Diogenes Spann Primary Care Physician Diogenes Jimenez Unavailable Unavailable Carson Salazar Primary Care Provider Carson Salazar Primary Care Provider CARSON SALAZAR Admitting Unavailable CARSON SALAZAR Attending Unavailable CARSON SALAZAR Consulting Unavailable CARSON SALAZAR Primary Care Unavailable DAVID VALDES Consulting Unavailable CARSON SALAZAR Admitting Unavailable CARSON SALAZAR Attending Unavailable Diogenes Spann Primary Care Physician Carson Man MD Primary Care Provider Carson Salazar MD Primary Care Provider Diogenes Spann Primary Care Physician Diogenes Jimenez Unavailable Unavailable Carson Salazar MD Primary Care Provider Carson Salazar MD Primary Care Provider Carson Salazar MD Primary Care Provider Diogenes Spann Primary Care Physician Carson Man MD Primary Care Provider Diogenes Spann Primary Care Physician Carson Man MD Primary Care Provider Stalin Clarke MD Unavailable Michele Peterson DO Unavailable Michele Peterson DO Attending Provider [phone] Michele Peterson Attending Unavailable Michele Peterson Admitting Unavailable NON STAFF Primary Care Unavailable MICHELE PETERSON Attending Unavailable MICHELE PETERSON Attending Unavailable JAYY, AHMAD F Referring Unavailable BOHACH, CHRISTOPHER J Attending Unavailabl e MUMTAZ FINLEY Referring Unavailabl e MUMTAZ CHRISTOPHER Attending Unavailable SARAY, CARSON M Referring Unavailable JAYY, STALIN F Attending Unavailable MIHCELE PETERSON Attending Unavailable JAYY, STALIN F Referring Unavailable SHERITA JURADO Attending Unavailable Heather RUELAS, Pinky S Primary Care Provider HEATHER PINKY S Primary Care Unavailable ADEN RESENDEZ II Attending Unavailabl e HEATHER, PINKY S Primary Care Unavailable KIRSTY MARTINEZ Attending Unavailable HEATHER PINKY S Primary Care Unavailable KIRSTY MARTINEZ Referring Unavailable KIRSTY MARTINEZ Attending Unavailable HEATHER, PINKY S Primary Care Unavailable KIRSTY MARTINEZ Attending Unavailable HOY, CARSON M Primary Care Unavailable HOY, CARSON M Referring Unavailable HOY, CARSON M Primary Care Unavailable HOY, CARSON M Referring Unavailable HOY, CARSON M Primary Care Unavailable HOY, CARSON M Referring Unavailable HOY, CARSON M Primary Care Unavailable HOY, CARSON M Referring Unavailable HOY, CARSON M Referring Unavailable HOY, CARSON M Primary Care Unavailable HOY, CARSON M Primary Care Unavailable MALENFANT, STEFFI Referring Unavailabl e HOY, CARSON M Primary Care Unavailable DIOGENES SPANN Referring Unavailable HOY, CARSON M Primary Care Unavailable HOY, CARSON M Referring Unavailable LIZBET FREEMAN Referring Unavail able HOY, CARSON M Primary Care Unavailable JAYY, BRIAND BEBO Attending Unavailable JAYY, AHMAD ALESHIAAS Referring Unavailable HOY, CARSON M Primary Care Unavailable HOY, CARSON M Primary Care Unavailable MUMTAZ CASTILLO Admitting Unavailable MUMTAZ CASTILLO Attending Unavailable SURINDER BROCK Consulting Unavailable MICH MACEDO Attending Unavailable MARIE, CARSON Referring Unavailable MICH MACEDO Admitting Unavailable MALESTACIANT, STEFFI Wolf Referring Unavaila ble MALESTEFFI CHURCH E Attending Unavaila ble SHERITA JURADO Referring Unavailable Allergies Allergy Classification Reported Allergen(s) Allergy Type Date of Onset Reaction(s) Facility Adrenergic Antagonists (2 sources) Adrenergic Beta-Antagonist s Drug Allergy 9 [facility] Calcium Channel Blockers (2 sources) dilTIAZem Drug Allergy 0 [facility] Latex (2 sources) Latex Substance Allergy 4 Shortness Of Breath, Swelling [facility] Metoprolol (2 sources) Metoprolol Drug Allergy 0 [facility] Ondansetron (2 sources) Ondansetron Drug Allergy 8 Other (See Comments) [facility] (20 sources) Latex; Translations: [latex] Allergy to substance (disorder) 3 Shortness Of Breath, Swelling, Anaphylaxis, Rash [facility] (6 sources) Metoprolol; Translations: [metoprolol succinate] Drug Allergy [facility] (6 sources) Ondansetron; Translations: [Zofran] Drug Allergy [facility] (20 sources) Adrenergic Beta-Antagonist s Propensity to adverse reactions to drug 9 [place], [place] (20 sources) Ondansetron Drug Allergy 8 Other (See Comments) [place] (20 sources) dilTIAZem; Translations: [DILTIAZEM] Drug Allergy 0 Rash [place], [place] (20 sources) Metoprolol Drug Allergy 0 [place] (2 sources) dilTIAZem Drug Allergy [facility] (2 sources) Metoprolol Drug Allergy [facility] (2 sources) Ondansetron Drug Allergy [facility] (1 source) Cardia Drug allergy (disorder) [facility] (14 sources) beta-Blocking agent Propensity to adverse reactions to drug 9 Rash, Other: See Comments [facility] (11 sources) beta-Blocking agent Drug Intolerance 9 Rash [facility] Work Phone: (17 sources) Ondansetron; Translations: [ONDANSETRON] Drug Allergy 8 Headache, Other, Other: See Comments [facility] (2 sources) Adrenergic Beta-Antagonist s; Translations: [BETA-BLOCKERS (BETA-ADRENERGI C BLOCKING AGTS)] Propensity to adverse reactions to drug (disorder) 9 [facility] Repository Medications Current Medications Medication Drug Class(es) Dates Sig (Normalized) Sig (Original) Acetaminophen (2 sources) Start: 02-14-2025 acetaminophen (TYLENOL) tablet 650 mg Start: 09-02-2020 End: 09-02-2020 acetaminophen (TYLENOL) tabl et 650 mg acetaminophen 325 mg / HYDROcodone bitartrate 5 mg oral tablet (1 source) Opioid Agonist Start: 07-14-2021 End: 07-19-2021 HYDROcodone-acetaminophen (NORCO) 5-325 MG per tablet Indications: Post-op pain Take 1 tablet by mouth every 6 hours as needed for Pain for up to 5 days. Intended supply: 5 days. Take lowest dose possible to manage pain 10 tablet 0 07/14/2021 07/19/2021 Active amLODIPine 5 mg oral tablet (20 sources) Dihydropyridine Calcium Channel Shruthi Start: 10-29-2023 take 1 tablet by mouth twice daily amLODIPine (NORVASC) 5 mg tablet Take 1 tablet by mouth two times a day. 10/29/2023 Active amoxicillin 500 mg oral capsule (2 sources) Penicillin-class Antibacterial End: 03-05-2024 take 2 capsules by mouth every twelve hours amoxicillin 500 mg capsule 03/05/2024 take 2 capsules by oral route every 12 hours azelastine hydrochloride 0.5 mg/ml ophthalmic solution (1 source) Histamine-1 Receptor Antagonist Start: 01-11-2025 End: 01-25-2025 take 1 drop(s) into the eye(s) twice daily Azelastine HCl (OPTIVAR) 0.05 % ophthalmic solution Use 1 Drop in both eyes two times a day for 14 days. 6 mL 5 01/11/2025 01/25/2025 Active benoxinate hydrochloride 4 mg/ml / fluorescein sodium 3 mg/ml ophthalmic solution (2 sources) Diagnostic Dye Start: 01-11-2025 End: 01-12-2025 fluorescein-benoxinate 0.3-0.4 % 1 Drop (FLURESS) Start: 01-11-2025 End: 01-12-2025 1 Drop, BOTH EYES, DIRECT ED, Starting on Sat01/11/25 at 1530, Until Sat01/12/25 at 0329, Administer for applanation tonometry. In the event of a Fluress shortage, administer Rama-Fluor 1 drop into both eyes as directed for applanation tonometry calcium chloride 0.0014 meq/ml / potassium chloride 0.004 meq/ml / sodium chloride 0.103 meq/ml / sodium lactate 0.028 meq/ml injectable solution (1 source) Start: 09-02-2020 lactated ringers infusion cefdinir 300 mg oral capsule (4 sources) Cephalosporin Antibacterial Start: 07-25-2023 cefdinir (OMNICEF) 300 MG capsule 07/25/2023 Active chorionic gonadotropin 09527 unt/ml injectable solution (1 source) Gonadotropin Start: 02-13-2022 chorionic gonadotropin (NOVAREL) 91178 units SOLR Inject 1 vial into the muscle once for 1 dose 1 each 0 02/13/2022 Active clindamycin 300 mg oral capsule (1 source) Lincosamide Antibacterial Start: 03-11-2021 End: 03-18-2021 take 1 capsule by mouth three times daily clindamycin (CLEOCIN) 300 MG capsule Take 1 capsule by mouth 3 times daily for 7 days 21 capsule 0 03/11/2021 03/18/2021 Active clomiPHENE citrate 50 mg oral tablet (13 sources) Estrogen Agonist/Antagonist Start: 12-11-2021 take 2 tablets by mouth once daily, then take 3-7 tablets by mouth once clomiPHENE (CLOMID) 50 MG tablet Indications: Infertility associated with anovulation Take 2 tablets by mouth daily Take days 3-7 of cycle 10 tablet 0 12/11/2021 Active Start: 09-18-2021 clomiPHENE (CL RAYMOND) 50 MG tablet Take 2 tablets by mouth daily Cycle date 3-7 10 tablet 0 10/16/2021 Active Start: 03-20-2021 take 1 tablet by silva once daily clomiPHENE (CLOMID) 50 MG tablet Indications: Anovulation Take 1 tablet by mouth daily 5 tablet 0 03/20/2021 Active Start: 01-12-2021 End: 03-11-2021 take 1 tablet by mouth once daily, then take 5-9 tablets by mouth once clomiPHENE (CLOMID) 50 MG tablet Indications: Anovulation Take 1 tablet by mouth daily Take days 5-9 of cycle 5 tablet 0 01/12/2021 Active End: 01-23-2022 Clomid 50 mg 01/23/2022 Take days 5-9 Clomid 50 mg Shkaa e days 5-9 dexamethasone 1 mg/ml / neomycin 3.5 mg/ml / polymyxin b 27336 unt/ml ophthalmic suspension (1 source) Aminoglycoside Antibacterial, Polymyxin-class Antibacterial, Corticosteroid End: 12-18-2024 take 1 drop(s) into the eye(s) three times daily [id number] 3.5 MG/ML-10,000 UNIT/ML-0.1% EYE DROPS Use 1 Drop in the left eye three times a day. 12/18/2024 Discontinued (Clinical Decision) estradiol 0.1 mg/ml vaginal cream (7 sources) Estrogen Start: 06-05-2018 estradiol (ESTRACE VAGINAL) 0.1 MG/GM vaginal cream Indications: Vaginal dryness Place 1 g vaginally Twice a Week 1 Tube 3 06/05/2018 Active End: 01-26-2021 estradiol 0.01 % (0.1 mg/gra m) vaginal cream 01/26/2021 insert 1 g vaginally twice weekly fluocinonide 0.5 mg/ml topical solution (10 sources) Corticosteroid Start: 01-08-2022 End: 03-05-2024 fluocinonide (LIDEX) 0.05 % external solution apply to scalp topically Once a day when flared for 30 day(s) 01/08/2022 Active End: 03-05-2024 fluocinonide 0.05 % topical cream 03/05/2024 apply to the affected area(s) by topical route once daily fluticasone propionate 0.05 mg/actuat metered dose nasal spray (20 sources) Corticosteroid Start: 02-24-2020 take 1 spray(s) nasal route once daily fluticasone (Flonase) 50 MCG/ACT nasal spray Administer 1 spray into each nostril Daily 02/03/2024 Active Start: 02-24-2020 fluticasone (F LONASE) 50 MCG/ACT nasal spray 02/24/2020 Active take 1 spray(s) nasa l route once daily fluticasone (FLONASE) 50 mcg/actuation nasal spray Use 1 [place] in each nostril once daily. Active take [address] once daily Flonase Allergy Relief 50 mcg/actuation nasal spray,suspension spray 1 - 2 sprays (50 - 100 mcg) in each nostril by intranasal route once daily hydroCHLOROthiazide 50 mg oral tablet (20 sources) Thiazide Diuretic Start: 02-08-2023 End: 03-05-2024 take 1 tablet by mouth once daily hydrochlorothiazide 50 mg tablet 02/08/2023 03/05/2024 take 1 tablet (50 mg) by oral route once daily Start: 02-26-2020 take 1 tablet by silva th once daily hydroCHLOROthiazide (HYDRODIURIL) 25 MG tablet Take 1 tablet by mouth daily 02/26/2020 Active hydrOXYzine pamoate 25 mg oral capsule (20 sources) Antihistamine Start: 08-24-2020 take 1 capsule by mouth four times daily as needed for anxiety hydrOXYzine (VISTARIL) 25 MG capsule Take 1 capsule by mouth 4 times daily as needed for Anxiety 08/24/2020 Active take 4 capsules by out once daily at bedtime as needed Vistaril 25 MG capsule 4 capsule at bedtime as needed Orally Once a day prn Active hyoscyamine sulfate 0.125 mg sublingual tablet (8 sources) Start: 07-25-2023 take 1 tablet under the tongue every six hours as needed for diarrhea hyoscyamine (LEVSIN/SL) [address] 1 tablet under the tongue every 6 hours as needed for Diarrhea or Cramping 07/25/2023 Active Start: 07-25-2023 hyoscyamine (L EVSIN/SL) 125 MCG sublingual tablet 07/25/2023 Active imiquimod 50 mg/ml topical cream (1 source) Start: 08-28-2022 End: 09-04-2022 imiquimod (ALDARA) 5 % cream Apply topically three times a week. 24 each 1 08/28/2022 09/04/2022 Active ketorolac tromethamine 10 mg oral tablet (8 sources) Nonsteroidal Anti-inflammatory Drug, Cyclooxygenase Inhibitor Start: 07-14-2021 End: 07-14-2022 take 1 tablet by mouth every six hours as needed for pain ketorolac (TORADOL) 10 MG tablet Take 1 tablet by mouth every 6 hours as needed for Pain 20 tablet 0 07/14/2021 07/14/2022 Active Start: 09-02-2020 End: 03-11-2021 take 1 tablet by mouth every six hours as needed for pain ketorolac (TORADOL) 10 MG tablet Take 1 tablet by mouth every 6 hours as needed for Pain Do not use with other NSAIDs. May add Tylenol for pain relief. 20 tablet 0 03/11/2021 Active Start: 06-17-2020 End: 06-17-2020 ketorolac (TORADOL) injectio n 30 mg labetalol hydrochloride 200 mg oral tablet (20 sources) beta-Adrenergic Shruthi Start: 02-24-2020 End: 03-05-2024 take 1 tablet by mouth twice daily labetalol (NORMODYNE) 200 MG tablet Take 1 tablet by mouth 2 times daily 02/24/2020 Active letrozole 2.5 mg oral tablet (18 sources) Aromatase Inhibitor Start: 03-05-2022 take 2 tablets by mouth once daily letrozole (FEMARA) 2.5 MG tablet Indications: Anovulation Take 2 tablets by mouth daily 10 tablet 1 03/05/2022 Active Start: 01-09-2022 take 2 tablets by mo [facility] once daily letrozole (FEMARA) 2.5 MG tablet Indications: Anovulation Take 2 tablets by mouth daily 10 tablet 1 01/09/2022 Active Start: 04-18-2021 letrozole (FEM MARGARITA) 2.5 MG tablet Indications: Anovulation Take 1 tablet days 5-9 of cycle. 5 tablet 0 04/18/2021 Active Start: 05-11-2019 End: 09-01-2020 letrozole (FEMARA) 2.5 MG ta blet Indications: Anovulation Take 1 tablet days 5-9 of cycle. 5 tablet 0 05/03/2020 09/01/2020 Discontinued (LIST CLEANUP) levothyroxine sodium 0.137 mg oral tablet (20 sources) l-Thyroxine Start: 09-29-2024 End: 09-24-2025 take 1 tablet by mouth once daily levothyroxine (SYNTHROID) 137 mcg tablet Take 137 mcg by mouth once daily. 09/29/2024 09/24/2025 Active Start: 03-05-2024 take 1 tablet by silva once daily levothyroxine 137 mcg oral tablet 03/05/2024 Take 1 tab daily with water only on empty stomach, no other foods,drinks,or meds for 2hr before or after CHARIS- MYLAN brand only Start: 02-08-2023 take 1 tablet by silva th once daily levothyroxine 137 mcg oral tablet 02/08/2023 Take 1 tab daily with water only on empty stomach, no other foods,drinks,or meds for 2hr before or after CHARIS- MYLAN brand only Start: 01-23-2022 take 1 tablet by silva th once daily levothyroxine 137 mcg oral tablet 01/23/2022 Take 1 tab daily with water only on empty stomach, no other foods,drinks,or meds for 2hr before or after CHARIS- MYLAN brand only Start: 01-27-2019 take 1 tablet by silva th once daily levothyroxine 137 mcg oral tablet 01/26/2021 Take 1 tab daily with water only on empty stomach, no other foods,drinks,or meds for 2hr before or after - MYLAN brand only M- PLUS 27 mg iron- 1 mg (4 sources) Start: 12-18-2024 M-ROBBIN PLUS 2 7 mg iron- 1 mg 1 tablet. 12/18/2024 Active magnesium oxide 400 mg oral tablet (19 sources) Start: 08-20-2024 take 1 tablet by mouth twice daily magnesium oxide (MAG-OX) 400 MG tablet Take 1 tablet by mouth 2 times daily 08/20/2024 Active 24 hr metFORMIN hydrochloride 500 mg extended release oral tablet (20 sources) Biguanide Start: 09-21-2024 take 2 tablets by mouth in the morning metFORMIN (GLUCOPHAGE-XR) 500 MG extended release tablet TAKE TWO (2) TABLETS BY MOUTH IN THE MORNING AND TAKE TWO (2) TABLETS BY MOUTH AT BEDTIME 120 tablet 10 09/21/2024 Active Start: 09-21-2024 take 1 tablet by silva th twice daily metFORMIN ER (GLUCOPHAGE XR) 500 mg 24 hr tablet Take 1,000 mg by mouth two times a day. 09/21/2024 Active Start: 09-03-2023 take 2 tablets by mo [facility] at bedtime metFORMIN (GLUCOPHAGE-XR) 500 MG extended release tablet TAKE TWO (2) TABLETS BY MOUTH IN THE MORNING AND AT BEDTIME 120 tablet 12 09/03/2023 Active Start: 02-08-2023 take 2 tablets by mo [facility] twice daily at dinner metformin 500 mg tablet 02/08/2023 take 2 tablets (1,000 mg) by oral route 2 times per day with morning and evening meals Start: 10-11-2022 take 2 tablets by mo ut at bedtime metFORMIN (GLUCOPHAGE-XR) 500 MG extended release tablet TAKE TWO (2) TABLETS BY MOUTH IN THE MORNING AND AT BEDTIME 120 tablet 10 10/11/2022 Active Start: 07-30-2022 take 2 tablets by mo [facility] at bedtime metFORMIN (GLUCOPHAGE-XR) 500 MG extended release tablet Take 2 tablets by mouth in the morning and at bedtime 360 tablet 0 07/30/2022 Active Start: 02-12-2022 take 2 tablets by mo [facility] at bedtime metFORMIN (GLUCOPHAGE-XR) 500 MG extended release tablet Take 2 tablets by mouth in the morning and at bedtime 360 tablet 1 02/12/2022 Active Start: 01-09-2022 take 1 tablet by [facility] once daily in the morning, then take 3 tablets by mouth once daily in the evening metFORMIN (GLUCOPHAGE) 500 MG tablet Indications: Anovulation TAKE 1 TABLET BY MOUTH EVERY MORNING ~108Q3 TAKE 3 TABLETS BY MOUTH EVERY EVENING 120 tablet 3 01/09/2022 Active Start: 01-26-2021 take 4 tablets by mo [facility] in the evening metformin 500 mg oral tablet 01/26/2021 take 4 tablets in the evening Start: 01-12-2021 End: 03-11-2021 metFORMIN (GLUCOPHAGE) 500 M G tablet Indications: Anovulation Take 3 tabs at night(1500mg) and 1 tab in am (500mg) 360 tablet 3 01/12/2021 03/11/2021 Discontinued (LIST CLEANUP) Start: 10-03-2020 metFORMIN (GLU COPHAGE XR) 500 MG extended release tablet Take 1 tablet with breakfast and 3 tablets at bedtime daily. 270 tablet 1 10/03/2020 Active Start: 11-10-2019 take 3 tablets by mo [facility] once daily metFORMIN (GLUCOPHAGE XR) 500 MG extended release tablet Take 3 tablets by mouth daily. 90 tablet 10 11/10/2019 Active Start: 07-29-2018 take 3 tablets by mo [facility] once daily metFORMIN (GLUCOPHAGE-XR) 500 MG extended release tablet Take 3 tablets by mouth daily 90 tablet 11 07/29/2018 Active take 2 tablets by [facility] every twenty-four hours at bedtime metFORMIN XR (Glucophage-XR) 500 MG 24 hr tablet TAKE TWO (2) TABLETS BY MOUTH IN THE MORNING AND AT BEDTIME Active take 3 tablets by [facility] in the evening metformin 500 mg oral tablet take 3 tablets in the evening 1 ml morphine sulfate 2 mg/ml cartridge (2 sources) Opioid Agonist Start: 02-14-2025 End: 02-17-2025 2 mg, IntraVENous, EVERY 2 HOURS PRN, Starting on Sat02/14/25 at 0155, Until Sat02/17/25 at 0154, Pain Moderate (4-6), allowed for higher pain score per patient request, If oral and IV narcotics ordered, use oral first and only use IV if oral is ineffective or cannot take oral. Do Not give oral and IV within 1 hour of each other unless specifically ordered. Start: 02-13-2025 End: 02-13-2025 take 1 dose by mouth every hour 4 mg, IntraVENous, ONCE, 1 dose, On 02/13/25 at 2215, If oral and IV narcotics ordered, use oral first and only use IV if oral is ineffective or cannot take oral. Do Not give oral and IV within 1 hour of each other unless specifically ordered. naproxen 500 mg oral tablet (8 sources) Nonsteroidal Anti-inflammatory Drug Start: 03-22-2022 take 1 tablet by mouth twice daily naproxen (NAPROSYN) 500 MG tablet Take 1 tablet by mouth 2 times daily 30 tablet 0 03/22/2022 Active End: 01-27-2019 take 2 tablets by mouth twice daily as needed naproxen 250 mg oral tablet 01/27/2019 take 2 tablets by oral route 2 times a day as needed 24 hr nicotine 0.583 mg/hr transdermal system (20 sources) Cholinergic Nicotinic Agonist apply 1 dose transdermal route every twenty-four hours nicotine (NICODERM CQ) 14 MG/24HR Place 1 patch onto the skin every 24 hours Active nicotine (Nicode rm, Step 2) 14 MG/24HR patch Place 1 patch on the skin Active End: 06-17-2020 nicotine (NICOTROL) 10 MG in haler Nicotine nicotine patch 14mg 24hr patch [facility] (38412) 0 06/17/2020 Discontinued (Therapy completed) apply 14 mg transder mal route every twenty-four hours nicotine patch 14mg 24hr patch ofloxacin 3 mg/ml ophthalmic solution (1 source) Quinolone Antimicrobial Start: 12-18-2024 End: 12-18-2024 take 1 drop(s) into the eye(s) four times daily ofloxacin (OCUFLOX) 0.3 % ophthalmic solution Indications: Conjunctival edema, bilateral Use 1 Drop in both eyes four times daily for 7 days. 5 mL 1 12/18/2024 12/18/2024 Discontinued (Not on Formulary) omeprazole 40 mg delayed release oral capsule (20 sources) Proton Pump Inhibitor take 1 capsule by mouth once daily omeprazole (PRILOSEC) 40 MG delayed release capsule Take 1 capsule by mouth daily Active oxaprozin 600 mg oral tablet (20 sources) Nonsteroidal Anti-inflammatory Drug oxaprozin (DAYPRO) 600 MG tablet TAKE 2 TABLETS BY MOUTH EACH MORNING Active take 1 tablet by mouth once janeen y oxaprozin (DAYPRO) 600 mg tablet Take 600 mg by mouth once daily. Active phenazopyridine hydrochloride 200 mg delayed release oral tablet (1 source) Start: 07-14-2021 End: 07-17-2021 take 1 tablet by mouth three times daily as needed for pain phenazopyridine (PYRIDIUM) 200 MG tablet Take 1 tablet by mouth 3 times daily as needed for Pain 9 tablet 0 07/14/2021 07/17/2021 Active polyethylene glycol 3350 92462 mg powder for oral solution (1 source) Osmotic Laxative Start: 02-14-2025 Potassium Chloride (14 sources) Start: 02-14-2025 potassium chloride (KLOR-CON M) extended release tablet 40 mEq Start: 02-08-2023 End: 03-05-2024 take 2 tablets by mouth twice daily potassium chloride ER 10 mEq tablet,extended release 02/08/2023 03/05/2024 take 2 tablets by oral route 2 times a day Start: 01-12-2022 take 1 tablet by silva th twice daily potassium chloride (KLOR-CON) 10 MEQ extended release tablet TAKE 1 TABLET BY MOUTH TWICE DAILY 01/12/2022 Active Vwmxqo-UkSut-Kgtrk-Ca-[place] 3 ( + Complete Multi) 18-0.8 & 290 MG therapy (11 sources) Uyfadv-DjUch-Xlc hf-Ca-[place] 3 ( + Complete Multi) 18-0.8 & 290 MG therapy as directed Orally Active Vit-Fe Fumarate-FA (M-ROBBIN PLUS) 27-1 MG TABS (14 sources) Start: 2023 take 1 tablet by mouth once daily Vit-Fe Fumarate-FA (M- PLUS) 27-1 MG TABS Take 1 tablet by mouth daily 30 tablet 12 09/08/2024 Active Start: 09-03-2023 take 1 tablet by silva th once daily Vit-Fe Fumarate-FA (M- PLUS) 27-1 MG TABS Take 1 tablet by mouth daily 30 tablet 12 09/03/2023 Active Start: 12-10-2022 take 1 tablet by silva th once daily Vit-Fe Fumarate-FA (M- PLUS) 27-1 MG TABS TAKE 1 TABLET BY MOUTH DAILY 30 tablet 9 12/10/2022 Active Start: 02-01-2022 take 1 tablet by silva th once daily Vit-Fe Fumarate-FA (M-ROBBIN PLUS) 27-1 MG TABS TAKE 1 TABLET BY MOUTH DAILY 30 tablet 10 02/01/2022 Active Vit-Fe Fumarate-FA ( VITAMIN PLUS LOW IRON) 27-1 MG TABS (18 sources) Start: 02-01-2021 take 1 tablet by mouth once daily Vit-Fe Fumarate-FA ( VITAMIN PLUS LOW IRON) 27-1 MG TABS Take 1 tablet by mouth daily 90 tablet 3 02/01/2021 Active Start: 07-29-2018 take 1 tablet by silva th once daily Vit-Fe Fumarate-FA ( VITAMIN PLUS LOW IRON) 27-1 MG TABS Take 1 tablet by mouth daily 30 tablet 11 07/29/2018 Suspended Start: 07-29-2018 take 1 tablet by silva th once daily Vit-Fe Fumarate-FA ( VITAMIN PLUS LOW IRON) 27-1 MG TABS Take 1 tablet by mouth daily 30 tablet 11 07/29/2018 Active QUEtiapine 50 mg oral tablet (19 sources) Atypical Antipsychotic take 1 tablet by mouth once daily QUEtiapine (SEROQUEL) 50 MG tablet Take 1 tablet by mouth nightly Active 1000 ml sodium chloride 9 mg/ml injection (9 sources) Start: Start: 02-13-2025 End: 02-15-2025 IntraVENous, at 75 mL/hr, CO NTINUOUS, Starting on 02/14/25 at 0215, For 24 hours, Complete last bag that is running at 24 hours and then saline lock IV Start: 09-02-2020 sodium chlorid e flush 0.9 % injection 10 mL Start: 06-17-2020 End: 06-17-2020 0.9 % sodium chloride bolus tropicamide 10 mg/ml ophthalmic solution (2 sources) Anticholinergic Start: 01-11-2025 End: 01-12-2025 tropicamide 1 % 1 Drop (MYDRIACYL) Start: 01-11-2025 End: 01-12-2025 1 Drop, BOTH EYES, DIRECT ED, Starting on Sat01/11/25 at 1530, Until Sat01/12/25 at 0329, Administer for dilation 24 hr venlafaxine 75 mg extended release oral capsule (20 sources) Serotonin and Norepinephrine Reuptake Inhibitor Start: 08-24-2020 venlafaxine (EFFEXOR XR) 75 MG extended release capsule 2 capsules nightly 08/24/2020 Active Start: 08-24-2020 venlafaxine ER (EFFEXOR XR) 75 mg 24 hr capsule 150 mg. 08/24/2020 Active Start: 08-24-2020 venlafaxine (E FFEXOR XR) 75 MG extended release capsule venlafaxine XR ( Effexor XR) 150 MG 24 hr tablet Active take 1 capsule by mo uth once daily Effexor XR 150 mg oral capsule,extended release 24hr take 1 capsule (150 mg) by oral route once daily Completed/Discontinued Medications Medication Drug Class(es) Dates Sig (Normalized) Sig (Original) acetaminophen 325 mg / oxyCODONE hydrochloride 5 mg oral tablet (1 source) Opioid Agonist Start: 03-11-2021 End: 03-11-2021 oxyCODONE-acetamin ophen (PERCOCET) 5-325 MG per tablet 1 tablet Start: 03-11-2021 End: 03-11-2021 oxyCODONE-acetaminophen (PER COCET) 5-325 MG per tablet 1 tablet amoxicillin 500 mg / clavulanate 125 mg oral tablet (2 sources) Penicillin-class Antibacterial Start: 03-22-2022 End: 03-22-2022 amoxicillin-clavulanate (AUGMENTIN) 500-125 MG per tablet 1 tablet Start: 03-22-2022 End: 04-01-2022 take 1 tablet by mouth twice daily amoxicillin-clavulanate (AUGMENTIN) 875-125 MG per tablet Take 1 tablet by mouth 2 times daily for 10 days 20 tablet 0 03/22/2022 04/01/2022 Active cefTRIAXone (ROCEPHIN) 1,000 mg in sterile water 10 mL IV syringe (1 source) Start: 02-14-2025 End: 02-14-2025 take 100 mg intravenously once 1,000 mg, IntraVENous, ONCE, On 02/14/25 at 0115, For 1 dose, Administer as slow IV Push over 5 mins Reconstitute 1 g vials with 9.6 mL of designated diluent to produce a 100 mg/mL solution. cholecalciferol 0.05 mg oral tablet (20 sources) Vitamin D Start: 08-06-2023 End: 02-14-2025 take 1 tablet by mouth once daily vitamin D (CHOLECALCIFEROL) 50 MCG (2000 UT) TABS tablet Take 1 tablet by mouth daily 08/06/2023 02/14/2025 Discontinued (LIST CLEANUP) take 1 capsule by mouth once arnel ly Cholecalciferol (VITAMIN D) 2000 units CAPS capsule Take 1 capsule by mouth daily Active Cholecalciferol (VITAMIN D) 2000 units CAPS capsule Take by mouth 0 Active Diclofenac (6 sources) Nonsteroidal Anti-inflammatory Drug End: 07-29-2018 diclofenac sodium 07/29/2018 Take daily 24 hr dilTIAZem hydrochloride 180 mg extended release oral tablet (7 sources) Calcium Channel Shruthi End: 02-01-2020 take 1 tablet by mouth once daily Matzim LA 180 mg oral tablet extended release 24 hr 02/01/2020 take 1 tablet (180 mg) by oral route once daily take 1 tablet by mouth twice arnel ly diltiazem (CARDIZEM LA) 180 MG TB24 extended release tablet Take 180 mg by mouth 2 times daily 0 Active dimenhyDRINATE 50 mg oral tablet (1 source) Start: 09-02-2020 End: 09-02-2020 dimenhyDRINATE (DRAMAMINE) tablet 50 mg 1 ml diphenhydrAMINE hydrochloride 50 mg/ml cartridge (1 source) Histamine-1 Receptor Antagonist Start: 02-13-2025 End: 02-13-2025 25 mg, IntraVENous, ONCE, 1 dose, On 02/13/25 at 2215, IV Push at rate not to exceed 25 mg/min. Start: 02-13-2025 End: 02-13-2025 25 mg, IntraVENous, ONCE, 1 dose, On 02/13/25 at 2215, IV Push at rate not to exceed 25 mg/min. iopamidol (ISOVUE-370) 76 % injection 75 mL (1 source) Start: 02-13-2025 End: 02-13-2025 take 1 dose intravenously once 75 mL, IntraVENous, IMG ONCE PRN, 1 dose, Starting on 02/13/25 at 2234, Until 02/13/25 at 2236, Other lidocaine hydrochloride 20 mg/ml mucous membrane topical solution (1 source) Antiarrhythmic, Amide Local Anesthetic Start: 03-11-2021 End: 03-11-2021 lidocaine viscous hcl (XYLOCAINE) 2 % solution 15 mL Start: 03-11-2021 End: 03-11-2021 lidocaine viscous hcl (XYLOC BELIA) 2 % solution 15 mL loratadine 10 mg oral tablet (20 sources) Start: 08-06-2023 End: 02-14-2025 take 1 tablet by mouth once daily loratadine (CLARITIN) 10 MG tablet Take 1 tablet by mouth daily 08/06/2023 02/14/2025 Discontinued (LIST CLEANUP) End: 08-30-2020 take 1 capsule by mouth once daily loratadine (CLARITIN) 10 MG capsule Take 1 capsule by mouth daily Active 100 ml metroNIDAZOLE 5 mg/ml injection (1 source) Nitroimidazole Antimicrobial Start: 02-14-2025 End: 02-14-2025 500 mg, IntraVENous, ONCE, 1 dose, On 02/14/25 at 0115, Antimicrobial Indications: Intra-Abdominal Infection moxifloxacin 5 mg/ml ophthalmic solution (5 sources) Quinolone Antimicrobial Start: 12-18-2024 End: 01-11-2025 take 1 drop(s) into the eye(s) four times daily moxifloxacin (VIGAMOX) 0.5 % ophthalmic solution Use 1 Drop in both eyes four times daily. 3 mL 1 12/23/2024 01/11/2025 Discontinued (Course of therapy completed) mupirocin 0.02 mg/mg topical ointment (8 sources) RNA Synthetase Inhibitor Antibacterial End: 02-14-2025 mupirocin (BACTROBAN) 2 % ointment Apply topically 3 times daily Apply topically 3 times daily. 02/14/2025 Discontinued (LIST CLEANUP) nabumetone 500 mg oral tablet (6 sources) Nonsteroidal Anti-inflammatory Drug End: 02-01-2020 take 1 tablet by mouth twice daily nabumetone 500 mg oral tablet 02/01/2020 take 1 tablet (500 mg) by oral route 2 times per day oxyCODONE hydrochloride 5 mg oral tablet (1 source) Opioid Agonist Start: 09-02-2020 End: 09-02-2020 oxyCODONE (ROXICODONE) immediate release tablet 5 mg prednisoLONE acetate 10 mg/ml ophthalmic suspension (5 sources) Corticosteroid Start: 12-18-2024 End: 01-11-2025 prednisoLONE acetate (PRED FORTE) 1 % ophthalmic suspension Use 1 Drop in both eyes two times a day. 5 mL 12/23/2024 01/11/2025 Discontinued (Course of therapy completed) 28 mg iron- 800 mcg oral tablet (6 sources) 28 mg iron- 800 mcg oral tablet Vit-Fe Fumarate-FA (GNP ) 28-0.8 MG TABS (1 source) Start: 05-10-2020 End: 06-17-2020 take 1 tablet by mouth once daily Vit-Fe Fumarate-FA (GNP ) 28-0.8 MG TABS TAKE 1 TABLET BY MOUTH DAILY 90 tablet 2 05/10/2020 06/17/2020 Discontinued (DUPLICATE) prochlorperazine 5 mg/ml injectable solution (2 sources) Phenothiazine Start: 02-14-2025 10 mg, IntraVENous, EVERY 6 HOURS PRN, Starting on 02/14/25 at 0400, Until Discontinued, Nausea, If administering IV push, administer at a maximum rate of 5 mg/minute. Patients should remain lying down following administration and be reassessed for relief of nausea and presence of hypotension. Patients should be assisted the first time they get up after administration. Start: 02-13-2025 End: 02-13-2025 10 mg, IntraVENous, ONCE, 1 dose, On 02/13/25 at 2215, If administering IV push, administer at a maximum rate of 5 mg/minute. Patients should remain lying down following administration and be reassessed for relief of nausea and presence of hypotension. Patients should be assisted the first time they get up after administration. 1 ml promethazine hydrochloride 25 mg/ml injection (2 sources) Phenothiazine Start: 06-17-2020 End: 06-17-2020 promethazine (PHENERGAN) injection 12.5 mg Start: 06-17-2020 End: 06-24-2020 take 1 tablet by mouth every six hours as needed for nausea promethazine (PHENERGAN) 25 MG tablet Take 1 tablet by mouth every 6 hours as needed for Nausea 30 tablet 0 06/17/2020 06/24/2020 Active triamcinolone acetonide 1 mg/ml topical cream (8 sources) Corticosteroid End: 02-14-2025 triamcinolone (KENALOG) 0.1 % cream Apply topically 2 times daily Apply topically 2 times daily. 02/14/2025 Discontinued (LIST CLEANUP) Problems Active Problems Problem Classification Problem Date Documented Da te Episodic/Chronic Abdominal pain (20 sources) Left lower quadrant pain; Translations: [Unspecified abdominal pain] Onset: 11-20-2018 11-20-2018 Episodic Anxiety disorders (11 sources) Anxiety; Translations: [Anxiety disorder, unspecified] Onset: 02-07-2024 02-07-2024 Chronic Appendicitis and other appendiceal conditions (3 sources) Acute appendicitis with generalized peritonitis; Translations: [Acute appendicitis with generalized peritonitis without gangrene, perforation, or abscess] Onset: 02-14-2025 02-14-2025 Episodic Appendicitis and other appendiceal conditions (1 source) Appendicitis and other appendiceal conditions; Translations: [Acute appendicitis with generalized peritonitis, without perforation or abscess] Onset: 02-14-2025 Benign neoplasm of uterus (20 sources) Uterine leiomyoma; Translations: [Leiomyoma of uterus, unspecified] Onset: 06-13-2020 06-13-2020 Episodic Blindness and vision defects (1 source) Bilateral myopia of eyes; Translations: [Myopia, bilateral] 01-11-2025 Episodic Deficiency and other anemia (3 sources) Anemia, unspecified Episodic Deficiency and other anemia (4 sources) Iron deficiency anemia, unspecified; Translations: [Iron deficiency anemia, unspecified] Onset: 07-09-2024 Episodic Disorders of teeth and jaw (1 source) Pain; Translations: [Dental caries, unspecified] Episodic E Codes: Natural/environment (1 source) Cat bite - wound; Translations: [Bitten by cat, initial encounter] Episodic Endometriosis (20 sources) Endometriosis (clinical); Translations: [Endometriosis, unspecified] Onset: 02-07-2024 07-21-2018 Chronic Esophageal disorders (20 sources) Gastro-esophageal reflux disease without esophagitis; Translations: [Gastroesophageal reflux disease without esophagitis] Onset: 10-28-2019 03-15-2022 Chronic Essential hypertension (14 sources) Benign essential hypertension; Translations: [Essential (primary) hypertension] Onset: 02-07-2024 Chronic Female infertility (4 sources) Female infertility; Translations: [Anovulation] Chronic Genitourinary symptoms and ill-defined conditions (4 sources) Endometrium thickened; Translations: [Endometrial thickening on ultrasound] 09-02-2020 Episodic Glaucoma (2 sources) Ocular hypertension, bilateral; Translations: [Ocular hypertension] 12-30-2024 Chronic Headache; including migraine (6 sources) Headache; Translations: [Headache] Episodic Inflammation; infection of eye (except that caused by tuberculosis or sexually transmitteddisease) (1 source) Allergic conjunctivitis of bilateral eyes; Translations: [Acute atopic conjunctivitis, bilateral] 01-11-2025 Episodic Malaise and fatigue (2 sources) Other fatigue; Translations: [Other fatigue] Onset: 11-27-2024 Episodic Menstrual disorders (8 sources) Irregular menstrual cycle; Translations: [Irregular menstruation, unspecified] Chronic Nausea and vomiting (1 source) Nausea and vomiting; Translations: [Non-intractable vomiting with nausea, unspecified vomiting type] Episodic Nausea and vomiting (4 sources) Vomiting, unspecified; Translations: [VOMITING UNSPECIFIED] Onset: 10-21-2019 Noninfectious gastroenteritis (20 sources) Other and unspecified noninfectious gastroenteritis and colitis; Translations: [Noninfective gastroenteritis and colitis, unspecified] Onset: 02-07-2024 02-07-2024 Episodic Nutritional deficiencies (2 sources) Vitamin D deficiency, unspecified; Translations: [Vitamin D deficiency, unspecified] Onset: 09-23-2024 Chronic Other endocrine disorders (4 sources) Polycystic ovaries Onset: 07-29-2018 Chronic Other endocrine disorders (8 sources) Polycystic ovarian syndrome Onset: 07-29-2018 Chronic Other endocrine disorders (11 sources) Polycystic ovary; Translations: [Polycystic ovarian syndrome] Onset: 02-07-2024 02-07-2024 Chronic Other eye disorders (3 sources) Bilateral conjunctival edema; Translations: [Conjunctival edema, bilateral] 12-18-2024 Episodic Other eye disorders (1 source) Disorder of lacrimal gland; Translations: [Dry eye syndrome of bilateral lacrimal glands] 12-30-2024 Episodic Other female genital disorders (20 sources) Cyst of uterine adnexa; Translations: [Other noninflammatory disorders of ovary, fallopian tube and broad ligament] Onset: 02-07-2024 07-21-2018 Episodic Other female genital disorders (1 source) Lesion of labia; Translations: [Other specified noninflammatory disorders of vulva and perineum] 11-03-2024 Episodic Other gastrointestinal disorders (4 sources) Irregular bowel habits; Translations: [Other specified symptoms and signs involving the digestive system and abdomen] 10-27-2024 Episodic Other liver diseases (2 sources) Unspecified disorder of liver Chronic Other liver diseases (4 sources) Liver disease, unspecified Chronic Other liver diseases (11 sources) Fatty (change of) liver, not elsewhere classified; Translations: [Other chronic nonalcoholic liver disease] Onset: 02-07-2024 02-07-2024 Chronic Other nervous system disorders (4 sources) Other chronic pain; Translations: [Other chronic pain] Onset: 01-19-2025 Chronic Other nervous system disorders (20 sources) Postoperative pain ; Translations: [Other acute postprocedural pain] Onset: 02-07-2024 07-14-2021 Episodic Other nutritional; endocrine; and metabolic disorders (2 sources) Morbid obesity Onset: 01-27-2019 Chronic Other nutritional; endocrine; and metabolic disorders (4 sources) Morbid (severe) obesity due to excess calories Onset: 01-27-2019 Chronic Other screening for suspected conditions (not mental disorders or infectious disease) (20 sources) Endometrium thickened; Translations: [Abnormal findings on diagnostic imaging of other specified body structures] Onset: 02-07-2024 09-02-2020 Chronic Other skin disorders (1 source) Localized swelling, mass and lump, unspecified; Translations: [Localized superficial swelling, mass, or lump] Episodic Ovarian cyst (1 source) Cyst of ovary; Translations: [Cyst of ovary, unspecified laterality] Episodic Residual codes; unclassified (4 sources) Family history of cancer of colon; Translations: [Family history of malignant neoplasm of digestive organs] 10-27-2024 Episodic Thyroid disorders (20 sources) Thyrotoxicosis without mention of goiter or other cause, and without mention of thyrotoxic crisis or storm; Translations: [Unspecified acquired hypothyroidism] Onset: 07-29-2018 03-15-2022 Chronic Unclassified (1 source) Myalgia, unspecified site; Translations: [MYALGIA UNSPECIFIED SITE] Onset: 10-28-2019 Past or Other Problems Problem Classification Problem Date Documented Date Episodic/Chronic Administrative/social admission (2 sources) Dietary counseling and surveillance; Translations: [Dietary counseling and surveillance] Onset: 09-23-2024 Episodic Cardiac dysrhythmias (1 source) Tachycardia, unspecified; Translations: [TACHYCARDIA UNSPECIFIED] Onset: 10-28-2019 Episodic Deficiency and other anemia (11 sources) Anemia; Translations: [Anemia, unspecified] Onset: 02-07-2024 02-07-2024 Episodic Diabetes mellitus without complication (1 source) Hyperglycemia, unspecified; Translations: [HYPERGLYCEMIA UNSPECIFIED] Onset: 10-28-2019 Episodic Fluid and electrolyte disorders (2 sources) Dehydration; Translations: [Hypokalemia] Onset: 10-28-2019 Episodic Other aftercare (1 source) Other rn long term care (current) drug therapy; Translations: [OTH PENITENTIARY CURRENT DRUG THERAPY] Onset: 10-28-2019 Episodic Other female genital disorders (1 source) Other specified noninflammatory disorders of vulva and perineum; Translations: [Other specified noninflammatory disorders of vulva and perineum] Onset: 11-03-2024 Episodic Other screening for suspected conditions (not mental disorders or infectious disease) (13 sources) Other abnormal blood chemistry; Translations: [Abnormal results of liver function studies] Onset: 10-28-2019 Episodic Other upper respiratory infections (1 source) Streptococcal pharyngitis; Translations: [STREPTOCOCCAL PHARYNGITIS] Onset: 10-28-2019 Episodic Residual codes; unclassified (2 sources) Edema, unspecified; Translations: [Edema, unspecified] Onset: 05-06-2024 Episodic Results Test Name Value Interpretation Reference Range Facility Basic Metab w/rfx MGon 02-14 Anion gap [Moles/Vol] 13 mmol/L Normal 9-16 [facility] Comment on above: Performed By: #### C DP, MG, BMPX #### [facility] [address] [place] [address] Circulation Manager: Pavan Davis MD BUN/CRE Ratio 17 Normal 9-20 [facility] Comment on above: Performed By: #### C DP, MG, BMPX #### [facility] [address] [place], [place] [id number] Circulation Manager: Pavan Davis MD Calcium [Mass/Vol] 8.6 mg/dL Normal 8.6-10.4 [facility] Comment on above: Performed By: #### C DP, MG, BMPX #### [address] [place], [place] [id number] Circulation Manager: Pavan Davis MD Chloride [Moles/Vol] 104 mmol/L Normal 98-107 [facility] Comment on above: Performed By: #### C DP, MG, BMPX #### [facility] [address] [place] [address] Circulation Manager: Pavan Davis MD CO2 [Moles/Vol] 23 mmol/L Normal 20-31 [facility] Comment on above: Performed By: #### C DP, MG, BMPX #### [facility] [address] [place], [place] [id number] Circulation Manager: Pavan Davis MD Creatinine [Mass/Vol] 0.6 mg/dL Normal 0.50-0.90 [facility] Comment on above: Performed By: #### C DP, MG, BMPX #### [facility] [address] [place] [address] Circulation Manager: Pavan Davis MD GFR/1.73 sq M.predicted among non-blacks MDRD (S/P/Bld) [Vol rate/Area] mL/min/{1.73_m2} Normal >60 [facility] Comment on above: Result Comment: These results are not intended for [...] following therapy that affects renal tubular secretion. Performed By: #### C DP, MG, BMPX #### [facility] [address] [place] [address] Circulation Manager: Pavan Davis MD Glucose [Mass/Vol] 83 mg/dL Normal 74-99 [facility] Comment on above: Performed By: #### C DP, MG, BMPX #### [address] [place] [address] Circulation Manager: Pavan Davis MD Potassium [Moles/Vol] 3.0 mmol/L Low 3.7-5.3 [facility] Comment on above: Performed By: #### C DP, MG, BMPX #### [address] [place] [address] Circulation Manager: Pavan Davis MD Sodium [Moles/Vol] 140 mmol/L Normal 136-145 [facility] Comment on above: Performed By: #### C DP, MG, BMPX #### [address] [place] [address] Circulation Manager: Pavan Davis MD Urea nitrogen [Mass/Vol] 10 mg/dL Normal 6-20 [facility] Comment on above: Performed By: #### C DP, MG, BMPX #### [address] [place] [address] Circulation Manager: Pavan Davis MD Basic Metabolic Panel w/ Ref isaac to MGon 02-14-2025 Anion gap [Moles/Vol] 13 mmol/L 9 - 16 mmol/L [facility] Calcium [Mass/Vol] 8.6 mg/dL 8.6 - 10. 4 mg/dL [facility] Chloride [Moles/Vol] 104 mmol/L 98 - 10 7 mmol/L [facility] CO2 [Moles/Vol] 23 mmol/L 20 - 31 mmol/L [facility] Creatinine [Mass/Vol] 0.6 mg/dL 0.50 - 0.90 mg/dL [facility] Est, Glofanny Casanovat Rate - PINF [facility] Comment on above: These results are not intended for use [...] following therapy that affects renal tubular secretion. Glucose [Mass/Vol] 83 mg/dL 74 - 99 mg/dL [facility] Interpretation and review of laboratory results Abnormal [facility] Potassium [Moles/Vol] 3 mmol/L Low 3.7 - 5.3 mmol/L [facility] Sodium [Moles/Vol] 140 mmol/L 136 - 145 mmol/L [facility] Urea nitrogen [Mass/Vol] 10 mg/dL 6 - 20 mg/dL [facility] Urea nitrogen/Creatinine [Mass ratio] 17 mg/mg 9 - 20 [facility] CBC auto differentialon 05-0 Basophils (Bld) [#/Vol] 0.03 10*3/uL [facility] Basophils/100 WBC (Bld) 1 % 0 - 2 % [facility] Eosinophils (Bld) [#/Vol] 0.09 10*3/uL [facility] Eosinophils/100 WBC (Bld) 2 % 1 - 4 % [facility] Erythrocyte distribution width (RBC) [Ratio] 13.1 % 11.8 - 14.4 % [facility] Hematocrit (Bld) [Volume fraction] 35.8 % Low 36.3 - 47.1 % [facility] Hemoglobin (Bld) [Mass/Vol] 12.5 g/dL 11.9 - 15.1 g/dL [facility] Immature granulocytes (Bld) [#/Vol] [facility] Immature granulocytes/100 WBC (Bld) 0 % 0 [facility] Interpretation and review of laboratory results Abnormal [facility] Lymphocytes/100 WBC (Bld) 26 % 24 - 43 % [facility] Lymphocytes/100 WBC (Bld) 1.5 % [facility] MCH (RBC) [Entitic mass] 27.7 pg 25.2 - 33.5 pg [facility] MCHC (RBC) [Mass/Vol] 34.9 g/dL High 28.4 - 34.8 g/dL [facility] MCV (RBC) [Entitic vol] 79.4 fL Low 82.6 - 102.9 fL [facility] Monocytes/100 WBC (Bld) 7 % 3 - 12 % [facility] Monocytes/100 WBC (Bld) 0.42 % [facility] Neutrophils/100 WBC (Bld) 64 % 36 - 65 % [facility] Nucleated RBC/100 WBC (Bld) [Ratio] 0 % 0.0 per 100 WBC [facility] Platelet mean volume (Bld) [Entitic vol] 9.8 fL 8.1 - 13.5 fL [facility] Platelets (Bld) [#/Vol] 268 10*3/uL [facility] RBC (Bld) [#/Vol] 4.51 10*6/uL 3.95 - 5.1 1 m/uL [facility] Segmented neutrophils/100 WBC (Bld) 3.71 % [facility] WBC other (Bld) [#/Vol] 5.8 [facility] CBC with Diffon 02-14-2025 Abs. Basophil 0.03 k/uL Normal 0.00-0.20 [facility] Comment on above: Performed By: #### C DP, MG, BMPX #### [facility] [address] [place] [address] Circulation Manager: Pavan Davis MD Abs.Imm.Granulocyte <0.03 Normal 0.00-0.30 [facility] Comment on above: Performed By: #### C DP, MG, BMPX #### [address] [place] [address] Circulation Manager: Pavan Davis MD Abs.Neutrophil (Seg) 3.71 k/uL Normal 1.50-8.10 [facility] Comment on above: Performed By: #### C DP, MG, BMPX #### [address] [place] [address] Circulation Manager: Pavan Davis MD Basophils/100 WBC (Bld) 1 % Normal 0-2 [facility] Comment on above: Performed By: #### C DP, MG, BMPX #### [address] [place] [address] Circulation Manager: Pavan Davis MD Eosinophils (Bld) [#/Vol] 0.09 10*3/uL Normal 0.00-0.44 [facility] Comment on above: Performed By: #### C DP, MG, BMPX #### [address] [place] [address] Circulation Manager: Pavan Davis MD Eosinophils/100 WBC (Bld) 2 % Normal 1-4 [facility] Comment on above: Performed By: #### C DP, MG, BMPX #### [address] [place] [address] Circulation Manager: Pavan Davis MD Immature granulocytes/100 WBC (Bld) 0 % Normal 0 [facility] Comment on above: Performed By: #### C DP, MG, BMPX #### [address] [place] [id number] Circulation Manager: Pavan Davis MD Lymphocytes (Bld) [#/Vol] 1.50 10*3/uL Normal 1.10-3.70 [facility] Comment on above: Performed By: #### C DP, MG, BMPX #### [facility] [address] [place], [place] [id number] Circulation Manager: Pavan Davis MD Lymphocytes/100 WBC (Bld) 26 % Normal 24-43 [facility] Comment on above: Performed By: #### C DP, MG, BMPX #### [facility] [address] [place] [address] Circulation Manager: Pavan Davis MD Monocytes (Bld) [#/Vol] 0.42 10*3/uL Normal 0.10-1.20 [facility] Comment on above: Performed By: #### C DP, MG, BMPX #### [address] [place], [place] [id number] Circulation Manager: Pavan Davis MD Monocytes/100 WBC (Bld) 7 % Normal 3-12 [facility] Comment on above: Performed By: #### C DP, MG, BMPX #### [address] [place], [place] [id number] Circulation Manager: Pavan Davis MD Neutrophil (Seg) 64 % Normal 36-65 [facility] Comment on above: Performed By: #### C DP, MG, BMPX #### [facility] [address] [place], [place] [id number] Circulation Manager: Pavan Davis MD Erythrocyte distribution width (RBC) [Ratio] 13.1 % Normal 11.8-14.4 [facility] Comment on above: Performed By: #### C DP, MG, BMPX #### [address] [place], [place] [id number] Circulation Manager: Pavan Davis MD Hematocrit (Bld) [Volume fraction] 35.8 % Low 36.3-47.1 [facility] Comment on above: Performed By: #### C DP, MG, BMPX #### [address] [place] [address] Circulation Manager: Pavan Davis MD Hemoglobin (Bld) [Mass/Vol] 12.5 g/dL Normal 11.9-15.1 [facility] Comment on above: Performed By: #### C DP, MG, BMPX #### [address] [place], [place] [id number] Circulation Manager: Pavan Davis MD MCH (RBC) [Entitic mass] 27.7 pg Normal 25.2-33.5 [facility] Comment on above: Performed By: #### C DP, MG, BMPX #### [address] [place] [address] Circulation Manager: Pavan Davis MD MCHC (RBC) [Mass/Vol] 34.9 g/dL High 28.4-34.8 [facility] Comment on above: Performed By: #### C DP, MG, BMPX #### [address] [place] [address] Circulation Manager: Pavan Davis MD MCV (RBC) [Entitic vol] 79.4 fL Low 82.6-102.9 [facility] Comment on above: Performed By: #### C DP, MG, BMPX #### [address] [place] [address] Circulation Manager: Pavan Davis MD NRBC Automated 0.0 per 100 WBC Normal 0.0 [facility] Comment on above: Performed By: #### C DP, MG, BMPX #### [address] [place] [address] Circulation Manager: Pavan Davis MD Platelet mean volume (Bld) [Entitic vol] 9.8 fL Normal 8.1-13.5 [facility] Comment on above: Performed By: #### C DP, MG, BMPX #### [facility] [address] [place], [place] [address] Circulation Manager: Pavan Davis MD Platelets (d) [#/Vol] 268 10*3/uL Normal 138-453 [facility] Comment on above: Performed By: #### C DP, MG, BMPX #### [facility] [address] [place], [place] 627[address]83 Circulation Manager: Pavan Davis MD RBC (d) [#/Vol] 4.51 10*6/uL Normal 3.95-5.11 [facility] Comment on above: Performed By: #### C DP, MG, BMPX #### [address] [place], [place] 870[address]83 Circulation Manager: Pavan Davis MD WBC (Bld) [#/Vol] 5.8 10*3/uL Normal 3.5-11.3 [facility] Comment on above: Performed By: #### C DP, MG, BMPX #### [address] [place], [place] [id number] Circulation Manager: Pavan Davis MD K (Potassium)on 02-14-2025 Potassium [Moles/Vol] 3.7 mmol/L Normal 3.7-5.3 [facility] Comment on above: Performed By: #### K #### [address] [place], [place] [id number] Circulation Manager: Pavan Davis MD Magnesiumon 02-14-2025 Magnesium [Mass/Vol] 1.8 mg/dL 1.6 - 2 .6 mg/dL [facility] Magnesium [Mass/Vol] 1.8 mg/dL Normal 1.6-2.6 [facility] Comment on above: Performed By: #### C DP, MG, BMPX #### [facility] [address] [place] [address] Circulation Manager: Pavan Davis MD Potassiumon 02-14-2025 Potassium [Moles/Vol] 3.7 mmol/L 3.7 - 5.3 mmol/L [facility] CBC with Auto Differentialon 02-13-2025 Basophils (Bld) [#/Vol] 0.04 10*3/uL [facility] Basophils/100 WBC (Bld) 0 % 0 - 2 % [facility] Eosinophils (Bld) [#/Vol] 0.09 10*3/uL [facility] Eosinophils/100 WBC (Bld) 1 % 1 - 4 % [facility] Erythrocyte distribution width (RBC) [Ratio] 12.9 % 11.8 - 14.4 % [facility] Hematocrit (Bld) [Volume fraction] 42 % 36.3 - 47.1 % [facility] Hemoglobin (Bld) [Mass/Vol] 14.5 g/dL 11.9 - 15.1 g/dL [facility] Immature granulocytes (Bld) [#/Vol] 0.05 10*3/uL [facility] Immature granulocytes/100 WBC (Bld) 1 % High 0 [facility] Interpretation and review of laboratory results Abnormal [facility] Lymphocytes/100 WBC (Bld) 26 % 24 - 43 % [facility] Lymphocytes/100 WBC (Bld) 2.52 % [facility] MCH (RBC) [Entitic mass] 27.4 pg 25.2 - 33.5 pg [facility] MCHC (RBC) [Mass/Vol] 34.5 g/dL 28.4 - 34.8 g/dL [facility] MCV (RBC) [Entitic vol] 79.2 fL Low 82.6 - 102.9 fL [facility] Monocytes/100 WBC (Bld) 7 % 3 - 12 % [facility] Monocytes/100 WBC (Bld) 0.67 % [facility] Neutrophils/100 WBC (Bld) 65 % 36 - 65 % [facility] Nucleated RBC/100 WBC (Bld) [Ratio] 0 % 0.0 per 100 WBC [facility] Platelet mean volume (Bld) [Entitic vol] 10 fL 8.1 - 13.5 fL [facility] Platelets (Bld) [#/Vol] 372 10*3/uL [facility] RBC (Bld) [#/Vol] 5.3 10*6/uL High 3.95 - 5.1 1 m/uL [facility] Segmented neutrophils/100 WBC (Bld) 6.48 % [facility] WBC other (Bld) [#/Vol] 9.9 [facility] CBC with Diffon 02-13-2025 Abs. Basophil 0.04 k/uL Normal 0.00-0.20 [facility] Comment on above: Performed By: #### C P, LIP, CDP #### [facility] [address] [place] [address] [place] [address] Circulation Manager: Pavan Davis MD Abs.Imm.Granulocyte 0.05 k/uL Normal 0.00-0.30 [facility] Comment on above: Performed By: #### C P LIP, CDP #### [address] [place] [address] Circulation Manager: Pavan Davis MD Abs.Neutrophil (Seg) 6.48 k/uL Normal 1.50-8.10 [facility] Comment on above: Performed By: #### C P, LIP, CDP #### [address] [place], [facility] Circulation Manager: Pavan Davis MD Basophils/100 WBC (Bld) 0 % Normal 0-2 [facility] Comment on above: Performed By: #### C P, LIP, CDP #### [address] [place] [id number] Circulation Manager: Pavan Davis MD Eosinophils (Bld) [#/Vol] 0.09 10*3/uL Normal 0.00-0.44 [facility] Comment on above: Performed By: #### C P, LIP, CDP #### [address] [place] [address] Circulation Manager: Pavan Davis MD Eosinophils/100 WBC (Bld) 1 % Normal 1-4 [facility] Comment on above: Performed By: #### C P, LIP, CDP #### [address] [place] [address] Circulation Manager: Pavan Davis MD Erythrocyte distribution width (RBC) [Ratio] 12.9 % Normal 11.8-14.4 [facility] Comment on above: Performed By: #### C P, LIP, CDP #### [address] [place] [address] Circulation Manager: Pavan Davis MD Hematocrit (Bld) [Volume fraction] 42.0 % Normal 36.3-47.1 [facility] Comment on above: Performed By: #### C P, LIP, CDP #### [address] [place] [address] Circulation Manager: Pavan Davis MD Hemoglobin (Bld) [Mass/Vol] 14.5 g/dL Normal 11.9-15.1 [facility] Comment on above: Performed By: #### C P, LIP, CDP #### [address] [place] [address] Circulation Manager: Pavan Davis MD Immature granulocytes/100 WBC (Bld) 1 % High 0 [facility] Comment on above: Performed By: #### C P, LIP, CDP #### [address] [place] [id number] Circulation Manager: Pavan Davis MD Lymphocytes (Bld) [#/Vol] 2.52 10*3/uL Normal 1.10-3.70 [facility] Comment on above: Performed By: #### C P, LIP, CDP #### [facility] [address] [place], [place] [address] Circulation Manager: Pavan Davis MD Lymphocytes/100 WBC (Bld) 26 % Normal 24-43 [facility] Comment on above: Performed By: #### C P, LIP, CDP #### [address] [place], [place] [address] Circulation Manager: Pavan Davis MD MCH (RBC) [Entitic mass] 27.4 pg Normal 25.2-33.5 [facility] Comment on above: Performed By: #### C P, LIP, CDP #### [address] [place], [place] [address] Circulation Manager: Pavan Davis MD MCHC (RBC) [Mass/Vol] 34.5 g/dL Normal 28.4-34.8 [facility] Comment on above: Performed By: #### C P, LIP, CDP #### [address] [place], [facility] Circulation Manager: Pavan Davis MD MCV (RBC) [Entitic vol] 79.2 fL Low 82.6-102.9 [facility] Comment on above: Performed By: #### C P, LIP, CDP #### [address] [place], [place] [address] Circulation Manager: Pavan Davis MD Monocytes (Bld) [#/Vol] 0.67 10*3/uL Normal 0.10-1.20 [facility] Comment on above: Performed By: #### C P, LIP, CDP #### [address] [place], [place] 383[address]83 Circulation Manager: Pavan Davis MD Monocytes/100 WBC (Bld) 7 % Normal 3-12 [facility] Comment on above: Performed By: #### C P, LIP, CDP #### [facility] [address] [place], [place] 267[address]83 Circulation Manager: Pavan Davis MD Neutrophil (Seg) 65 % Normal 36-65 [facility] Comment on above: Performed By: #### C P, LIP, CDP #### [facility] [address] [place], [place] 196[address]83 Circulation Manager: Pavan Davis MD NRBC Automated 0.0 per 100 WBC Normal 0.0 [facility] Comment on above: Performed By: #### C P, LIP, CDP #### [address] [place], [place] 1435683 Circulation Manager: Pavan Davis MD Platelet mean volume (Bld) [Entitic vol] 10.0 fL Normal 8.1-13.5 [facility] Comment on above: Performed By: #### C P, LIP, CDP #### [address] [place], [place] 49[address]83 Circulation Manager: Pavan Davis MD Platelets (Bld) [#/Vol] 372 10*3/uL Normal 138-453 [facility] Comment on above: Performed By: #### C P, LIP, CDP #### [address] [place] [address] Circulation Manager: Pavan Davis MD RBC (Bld) [#/Vol] 5.30 10*6/uL High 3.95-5.11 [facility] Comment on above: Performed By: #### C P, LIP, CDP #### [address] [place], [place] 9459183 Circulation Manager: Pavan Davis MD WBC (Bld) [#/Vol] 9.9 10*3/uL Normal 3.5-11.3 [facility] Comment on above: Performed By: #### C P, LIP, CDP #### [address] [place] [address] Circulation Manager: Pavan Davis MD [facility] 02-13-2025 Albumin [Mass/Vol] 4.9 g/dL 3.5 - 5.2 g/dL [facility] Albumin/Globulin [Mass ratio] 1.4 {ratio} 1.0 - 2.5 [facility] ALP [Catalytic activity/Vol] 69 U/L 35 - 104 U/L [facility] ALT [Catalytic activity/Vol] 80 U/L High 10 - 35 U/L [facility] Anion gap [Moles/Vol] 14 mmol/L 9 - 16 mmol/L [facility] AST [Catalytic activity/Vol] 55 U/L High 10 - 35 U/L [facility] Bilirubin [Mass/Vol] 0.5 mg/dL 0.00 - 1.20 mg/dL [facility] Calcium [Mass/Vol] 9.8 mg/dL 8.6 - 10. 4 mg/dL [facility] Chloride [Moles/Vol] 102 mmol/L 98 - 10 7 mmol/L [facility] CO2 [Moles/Vol] 24 mmol/L 20 - 31 mmol/L [facility] Creatinine [Mass/Vol] 0.7 mg/dL 0.50 - 0.90 mg/dL [facility] Est, Rodo Gaytan Rate - PINF [facility] Comment on above: These results are not intended for use [...] following therapy that affects renal tubular secretion. Glucose [Mass/Vol] 89 mg/dL 74 - 99 mg/dL [facility] Interpretation and review of laboratory results Abnormal [facility] Potassium [Moles/Vol] 3.4 mmol/L Low 3.7 - 5.3 mmol/L [facility] Protein [Mass/Vol] 8.3 g/dL 6.6 - 8.7 g/dL [facility] Sodium [Moles/Vol] 140 mmol/L 136 - 145 mmol/L [facility] Urea nitrogen [Mass/Vol] 13 mg/dL 6 - 20 mg/dL [facility] Urea nitrogen/Creatinine [Mass ratio] 19 mg/mg 9 - [address] [facility] [address] CHEST ABDOMEN PELVIS W CO NTRASTon 02-13-2025 CT CHEST ABDOMEN PELVIS W CONTRAST EXAMINATION: CT OF THE CHEST, ABDOMEN, AND [...] and Monica: No mediastinal lymphadenopathy. Normal caliber of the [...] segment. Unremarkable CT appearance of the ovaries. Peritoneum/Retroperito neum: No retroperitoneal, mesenteric, or pelvic lymphadenopathy. Trace [...] thyroid ultrasound. Reference: J Am Speedy Radiol. 2014;12(2): 143-50 Left sub-cm adrenal mass, probably benign. No follow-up imaging is recommended. JACR 2016; 14(8):1038-44, JCAT 2016 Dec-Jan; 40(2):194-200, Urol J spring; 3(2):71-4. Interpreted by: Marysol Hartley MD Signed by: Marysol Hartley MD 02/13/25 Final result Normal [facility] CT Chest and Abdomen and Pel vis W contrast Toño 02-13-2025 1. No pneumoperitone um or findings to suggest bowel injury. 2. [...] thyroid ultrasound. Reference: J Am Speedy Radiol. 2014;12(2): 143-50 Left sub-cm adrenal mass, probably benign. No follow-up imaging is recommended. JACR 2016; 14(8):1038-44, JCAT 2016 Dec-Jan; 40(2):194-200, Urol J spring; 3(2):71-4. [facility] EXAMINATION: CT OF THE CHEST, ABDOMEN, AND [...] and Monica: No mediastinal lymphadenopathy. Normal caliber of the [...] segment. Unremarkable CT appearance of the ovaries. Peritoneum/Retroperito neum: No retroperitoneal, mesenteric, or pelvic lymphadenopathy. Trace pelvic free fluid is likely physiologic. No pneumoperitoneum. The abdominal aorta is normal in caliber. Bones/Soft Tissues: No acute osseous or soft tissue abnormality. [facility] Marysol Hartley MD - 02/13/2025 EXAMINATION: CT [...] and Monica: No mediastinal lymphadenopathy. Normal caliber of the [...] segment. Unremarkable CT appearance of the ovaries. Peritoneum/Retroperito neum: No retroperitoneal, mesenteric, or pelvic lymphadenopathy. Trace [...] 2016 Dec-Jan; 40(2):194-200, Urol J spring; 3(2):71-4. [facility] Radiology Study observation (narrative) [facility] CT Chest and Abdomen and Pel vis W contrast IVOrdered By: Marysol Hartley on 02-13-2025 [facility] Work Phone: Comp Metabolic Profon 2024 Albumin [Mass/Vol] 4.9 g/dL Normal 3.5-5.2 [facility] Comment on above: Performed By: #### C LINDA Quintana, CDP #### [facility] [address] [place] [address] [place] [address] Circulation Manager: Pavan Davis MD Albumin/Glob Ratio 1.4 Normal 1.0-2.5 [facility] Comment on above: Performed By: #### LINDA Cardenas, CDP #### [facility] [address] [place] [address] Circulation Manager: Pavan Davis MD Alkaline Phos 69 U/L Normal 35-104 [facility] Comment on above: Performed By: #### C LINDA Quintana, CDP #### [facility] [address] [place] [address] Circulation Manager: Pavan Davis MD ALT [Catalytic activity/Vol] 80 U/L High 10-35 [facility] Comment on above: Performed By: #### C P, LIP, CDP #### [facility] [address] [place], [place] [address]883 Circulation Manager: Pavan Davis MD Anion gap [Moles/Vol] 14 mmol/L Normal 9-16 [facility] Comment on above: Performed By: #### C P, LIP, CDP #### [facility] [address] [place], [place] 2998383 Circulation Manager: Pavan Davis MD AST [Catalytic activity/Vol] 55 U/L High 10-35 [facility] Comment on above: Performed By: #### C P, LIP, CDP #### [address] [place], [place] 2827683 Circulation Manager: Pavan Davis MD Bilirubin [Mass/Vol] 0.5 mg/dL Normal 0.00-1.20 [facility] Comment on above: Performed By: #### C P, LIP, CDP #### [facility] [address] [place] [address] Dr. [place], [place] 0364383 Circulation Manager: Pavan Davis MD BUN/CRE Ratio 19 Normal 9-20 [facility] Comment on above: Performed By: #### C P, LIP, CDP #### [address] [place], [place] 692[address]83 Circulation Manager: Pavan Davis MD Calcium [Mass/Vol] 9.8 mg/dL Normal 8.6-10.4 [facility] Comment on above: Performed By: #### C P, LIP, CDP #### [facility] [address] [place] [address] Dr. [place], [place] 0009483 Circulation Manager: Pavan Davis MD Chloride [Moles/Vol] 102 mmol/L Normal 98-107 [facility] Comment on above: Performed By: #### C P, LIP, CDP #### [facility] [address] [place] [address] [place] [address] Circulation Manager: Pavan Davis MD CO2 [Moles/Vol] 24 mmol/L Normal 20-31 [facility] Comment on above: Performed By: #### C P, LIP, CDP #### [facility] [address] [place] [address] Circulation Manager: Pavan Davis MD Creatinine [Mass/Vol] 0.7 mg/dL Normal 0.50-0.90 [facility] Comment on above: Performed By: #### C P, LIP, CDP #### [facility] [address] [place] [address] Circulation Manager: Pavan Davis MD GFR/1.73 sq M.predicted among non-blacks MDRD (S/P/Bld) [Vol rate/Area] mL/min/{1.73_m2} Normal >60 [facility] Comment on above: Result Comment: These results are not intended for [...] following therapy that affects renal tubular secretion. Performed By: #### C P, LIP, CDP #### [facility] [address] [place] [address] Circulation Manager: Pavan Davis MD Glucose [Mass/Vol] 89 mg/dL Normal 74-99 [facility] Comment on above: Performed By: #### C P, LIP, CDP #### [facility] [address] [place] [address] Circulation Manager: Pavan Davis MD Potassium [Moles/Vol] 3.4 mmol/L Low 3.7-5.3 [facility] Comment on above: Performed By: #### C P, LIP, CDP #### [facility] [address] [place] [address] Circulation Manager: Pavan Davis MD Protein [Mass/Vol] 8.3 g/dL Normal 6.6-8.7 [facility] Comment on above: Performed By: #### C P, LIP, CDP #### [facility] [address] [place], [place] 0450783 Circulation Manager: Pavan Davis MD Sodium [Moles/Vol] 140 mmol/L Normal 136-145 [facility] Comment on above: Performed By: #### C P, LIP, CDP #### [facility] [address] [place] [address] Circulation Manager: Pavan Davis MD Urea nitrogen [Mass/Vol] 13 mg/dL Normal 6-20 [facility] Comment on above: Performed By: #### C P, LIP, CDP #### [address] [place], [place] 3160483 Circulation Manager: Pavan Davis MD Lactic Acidon 02-13-2025 Lactate (BldV) [Moles/Vol] 1.2 mmol/L 0.5 - 2.2 mmol/L [facility] Lactate [Moles/Vol] 1.2 mmol/L Normal 0.5-2.2 [facility] Comment on above: Performed By: #### C P, LIP, CDP #### [facility] [address] [place], [place] 8485483 Circulation Manager: Pavan Davis MD Lipaseon 02-13-2025 Lipase [Catalytic activity/Vol] 30 U/L 13 - 60 U/L [facility] Lipase [Catalytic activity/Vol] 30 U/L Normal 13-60 [facility] Comment on above: Performed By: #### C P, LIP, CDP #### [facility] [address] [place] [address] Circulation Manager: Pavan Davis MD No Panel Informationon 02-13 [facility] HISTOLOGY - TISSUE EXAMon LAB AP ADDENDUM 1 02/15/2025 [facility] Comment on above: Result Comment: B. Immunohistochemical staining for Helicobacter pylori is negative. The control is satisfactory. Addendum electronically signed by Miguel Smith MD on 02/15/2025 at 10:28 AM Performed By: #### L [id number] ####[facility] ([facility])[address] [facility] [place] [address] LAB AP ASR DISCLAIMER The interpretation of this case included the use of immunohistochemistry [...] the Clinical Laboratory Improvement Amendments of 1998. Normal [facility] Comment on above: Performed By: #### L [id number] ####[facility] ([facility])[address] [facility] [place] [address] LAB AP CASE REPORT Normal [facility] Comment on above: Result Comment: Surg ical Pathology Case: [id number] Authorizing Provider: Mich Macedo MD Collected: 02/11/2025 1345 Ordering Location: [facility] Received: 02/11/2025 [facility] Pathologist: Miguel Smith MD Specimens: A) - Small Intestine, Duodenum B) - Gastric C) - Large Intestine Performed By: #### L [id number] ####[facility] [facility] [place] [address] LAB AP CLINICAL INFORMATION Order Diagnoses Normal [facility] Comment on above: Result Comment: D50. 9 - Iron deficiency anemia, unspecified iron deficiency anemia type [ICD-10-CM] K52.9 - Chronic diarrhea [ICD-10-CM] R10.9, G89.29 - Chronic abdominal pain [ICD-10-CM] D50.9 - Chronic iron deficiency anemia [ICD-10-CM] Performed By: #### L [id number] ####[facility] ([facility])[address] [facility] [place] [address] LAB AP DIAGNOSIS COMMENT B. Immunohistochemical staining for Helicobacter pylori organisms is pending with results to follow in an addendum. [facility] Comment on above: Performed By: #### L [id number] ####[facility] ([facility])[address] [facility] [place] [address] LAB AP GROSS DESCRIPTION [facility] Comment on above: Result Comment: A. S mall Intestine, Duodenum. The specimen is received in formalin labeled Quyen Kolby and duodenum. It consists of 6 oro-pink, feathery pieces of mucosal tissue ranging from 0.3 cm to 0.5 cm in greatest dimension. The specimen is submitted in toto in 1 cassette. Mónica Vera, [employer]' [employer] student Jailene Wilkins, [employer] B. Gastric. The specimen is received in formalin labeled Quyen Kolby and gastric. It consists of 4 oro-pink, shaggy pieces and strips of mucosal tissue ranging from 0.3 cm to 0.7 cm in greatest dimension. The specimen is submitted in toto in 1 cassette. Mónica Vera, [employer] student Jailene Wilkins, Pathologists' [employer] C. Large Intestine. The specimen is received in formalin labeled Quyen Kolby and large intest. It consists of 11 pale-oro, shaggy fragments of mucosal tissue ranging from 0.2 cm to 0.5 cm in greatest dimension. The specimen is submitted in toto in 1 cassette. Mónica Vera, [employer] student Jailene Wilkins, Pathologists' [employer] Performed By: #### L [id number] ####[facility] ([facility])[address] [place] [address] LAB AP MICROSCOPIC DESCRIPTION Microscopic examination performed. [facility] Comment on above: Performed By: #### L [id number] ####[facility] ([facility])[address] [place] [address] LAB AP REPORT FINAL DIAGNOSIS NARRATIVE [facility] Comment on above: Result Comment: A. D uodenum, biopsy: - Duodenal mucosa with with no specific abnormality. - No significant inflammation or villous abnormality identified. B. Stomach, biopsy: - Chronic inactive gastritis. - No intestinal metaplasia identified. - See comment. C. Colon, biopsy: - Benign colonic mucosa with no specific abnormality. Performed By: #### L [id number] ####[facility] ([facility])[address] [place] [address] HPon 02-11-2025 HP H&P reviewed. The patient was examined and there are no changes to the H&P. Normal [facility] NURSNOTEon 02-11-2025 NURSNOTE Discharge reviewed with patient and mother Riya. Both verbalized understanding of instructions prior to DC with no questions at this time. Normal [facility] POCT GLUCOSE METER UNSOLICIT ED RESULTSon 02-11-2025 Glucose [Mass/Vol] 100 mg/dL Normal 70-105 [facility] Comment on above: Order Comment: Waive d Testing in the ED is performed under the ED CLIA certificate #[id number]. Result Comment: [email or web address] Performed By: #### L [id number] #### [facility] ([facility]) [address] [place] [address] Prep for Procedureon 025 Prep for Procedure [id number] Quyen Lewis 1990 F Date Provider Department Center 02/02/2025 328-[facility] Pre/Post GEORGEI No family history on file Normal [facility] Orders Onlyon 02-01-2025 Orders Only [id number] Quyen Lewis 1990 F Date Provider Department Center 02/01/2025 [id number], HISTORICAL [facility] Pavi No family history on file Normal [facility] Calprotectin, Fecalon 2024 Calprotectin, Fecal 61 ug/g High <=49 [facility] Comment on above: Result Comment: (NOT E) REFERENCE INTERVAL: Calprotectin, Fecal by Immunoassay Less than 50 ug/g........Normal 50-120 ug/g..............Borderline elevated, test should be re-evaluated in 4-6 weeks. 121 ug/g or greater......Elevated Performed By: [employer] [address] [place] [id number] Student Success Advisor: Yuriy Cardenas MD, PhD CLIA Number: [id number] Performed By: #### M G, TSH, CP, CDP #### [facility] [address] [place] [address] Circulation Manager: Pavan Davis MD #### FT3, T4 #### [facility] [address] [place] [address] Circulation Manager: Haim Wu MD H. pylori Antigenon 01-30-20 25 H. pylori Antigen Specimen Description .FECES Direct Exam NEGATIVE Report Status FINAL 01/29/2025 Normal [facility] Comment on above: Performed By: #### F AVILA #### [facility] [address] [place] [address] [id number] Circulation Manager: Haim Wu MD #### CP, CDP #### [facility] Lab [address] [place] [address] Circulation Manager: Pavan Davis MD Orders Onlyon 01-29-2025 Orders Only [id number] Quyen Lewis 1990 F Date Provider Department Center 01/29/2025 [id number], HISTORICAL MP GI Medical Pavi No family history on file Normal [facility] Stool PCR [place] 01-30-20 25 Campylobacter sp PCR NEGATIVE: No Campylobacter spp. (jejuni or coli) DNA Detected Normal CAMNEG [facility] Comment on above: Performed By: #### M G, TSH, CP, CDP #### [facility] [address] [place] [address] Circulation Manager: Pavan Davis MD #### FT3, T4 #### [facility] [address] [place], [place] 1936[address] Circulation Manager: Haim Wu MD E coli enterotox PCR NEGATIVE: No Enterotoxigenic E. coli (ETEC) Heat-labile and heat-stable (LT/ST) Normal EECNEG [facility] Comment on above: Result Comment: DNA Detected Performed By: #### M G, TSH, CP, CDP #### [facility] [address] [place] [address] Circulation Manager: Pavan Davis MD #### FT3, T4 #### [facility] [address] [place] [address] Circulation Manager: Haim Wu MD Plesiomonas sp PCR Negative Normal PLENEG [facility] Comment on above: Performed By: #### M G, TSH, CP, CDP #### [facility] [address] [place] [address] Circulation Manager: Pavan Davis MD #### FT3, T4 #### [address] [address] Circulation Manager: Haim Wu MD Salmonella sp PCR Negative Normal SALNEG [facility] Comment on above: Performed By: #### M G, TSH, CP, CDP #### [facility] [address] [place] [address] Circulation Manager: Pavan Davis MD #### FT3, T4 #### [address] [address] Circulation Manager: Haim Wu MD Shigatoxin gene PCR Negative Normal STXNEG [facility] Comment on above: Performed By: #### M G, TSH, CP, CDP #### [facility] [address] [place] [address] Circulation Manager: Pavan Davis MD #### FT3, T4 #### [address] [address] Circulation Manager: Haim Wu MD Shigella sp PCR Negative Normal SHINEG [facility] Comment on above: Performed By: #### M G, TSH, CP, CDP #### [facility] [address] [place] [address] Circulation Manager: Pavan Davis MD #### FT3, T4 #### [address] [address] Circulation Manager: Haim Wu MD Vibrio sp PCR NEGATIVE: No Vibrio (V. vulnificus, V, parahaemolyticus and V. cholerae) DNA Normal VIBNEG [facility] Comment on above: Result Comment: Dete cted Performed By: #### M G, TSH, CP, CDP #### [facility] [address] [place] [address] Circulation Manager: Pavan Davis MD #### FT3, T4 #### [address] [address] Circulation Manager: Haim Wu MD Yersinia gene PCR Negative Normal YERNEG [facility] Comment on above: Performed By: #### M G, TSH, CP, CDP #### [facility] [address] [place] [address] Circulation Manager: Pavan Davis MD #### FT3, T4 #### [address] [address] Circulation Manager: Haim Wu MD Stool PCR [place] 01-29-20 25 Specimen Description .FECES Normal [facility] Comment on above: Performed By: #### M G, TSH, CP, CDP #### [facility] [address] [place] [address] Circulation Manager: Pavan Davis MD #### FT3, T4 #### [address] [address] Circulation Manager: Haim Wu MD CELIAC DISEASE SCREENon TISSUE TRANSGLUTAMINASE, IGA <1.02 Normal 0.00-4.99 [facility] Comment on above: Result Comment: Tiss ue transglutaminase, IgA antibody below lower limit of [...] indicate a response to therapy. Performed By: [employer] [address] [place] [address] Student Success Advisor: Yuriy Cardenas MD, PhD CLIA Number: [id number] Performed By: #### L [id number] ####[employer] [address] GLIADIN ANTIBODY, IGAon 04-0 -2024 DEAMIDATED GLIADIN PEPTIDE (DGP) AB, IGA <0.72 Normal 0.00-4.99 [facility] Comment on above: Result Comment: Low IgA antibody levels suspected. Tissue [...] tissue transglutaminase (tTG) IgA antibody. Performed By: [employer] [address] [place] [address] Student Success Advisor: Yuriy Cardenas MD, PhD CLIA Number: [id number] Performed By: #### L [id number] ####[employer] [address] GLIADIN ANTIBODY, IGGon 04-0 DEAMIDATED GLIADIN PEPTIDE (DGP) AB, IGG 2.33 FLU Normal 0.00-4.99 [facility] Comment on above: Result Comment: INTE RPRETIVE INFORMATION: Deamidated Gliadin Peptide (DGP) Ab, IgG [...] in patients without IgA deficiency. Performed By: [facility] [address] [place] [address] Student Success Advisor: Yuriy Cardenas MD, PhD CLIA Number: [id number] Performed By: #### L [id number] #### [employer] [facility] LABORATORY (BEAKER) [address] [place] [address] HPon 01-19-2025 [facility] Gastroenterolog y New Patient Visit - History & Physical CHIEF COMPLAINT Chief Complaint Patient presents with New Patient irregular bowel habits HISTORY OF PRESENT ILLNESS: Quyen Lewis is a 34 y.o. female w/ pmh of Christie's, Endometriosis, PCOS, HTN, anemia, anxiety and cholecystectomy (2009), presenting for chronic abdominal pain, irregular bowel habits For the past few years, she has suffered with a constant right upper sided abdominal pain, worse with eating, no particular known triggers- all food causes pain. Applying pressure to the area helps. Has some LLQ pain that remains constant. Has intermittent generalized abdominal spasms - especially r/t to BMs and when resting. None of these pains are improved with BMs. Associated with nausea, bloating, acid reflux and difficultly swallowing. In regards to her swallowing, she denies food sticking in her esophagus, she wonders if her difficulty is r/t her thyroid being enlarged- Takes omeprazole 40 mg daily (started 15 years ago), will still need to take TUMs. Breakthrough symptoms are frequent, requiring TUMs frequently. Reports very irregular BMs - always loose to watery. BMs occur at least 5 x per day, worse with eating. Denies any form to her stool. Flares of snotty stools, reports whole pills undigested in her stool. Does endorse coffee ground stools occurring a few months ago, unrelated to her iron tablets which she has been on a few years. Denies hematochezia and UI wt loss. Levsin as needed, does not take frequently because it causes her to be tired. Has tried bentyl in the past w/o significant relief. Reported GI history includes right sided inflammation on imaging - was dx w/ colitis passed on imaging in the past. Prior history of endometriosis removed from bowel, was unable to move her bowels. Family history of CRC in paternal great grandpa, maternal grandpa esophageal cancer PREVIOUS LABS/IMAGING/ENDOSCOPY : None LABORATORY DATA: CBC: No results found for: WBC , RBC , HGB , HCT , MCV , RDW , PLT PT/INR No results found for: PT , INR BMP: No results found for: NA , K , CL , BUN , CREATININE , EGFR , GLU LFTs: No results found for: BILITOT , BILIDIR , ALKPHOS , GGT , AST , ALT , ALBUMIN , PROT Celiac Serology: No results found for: TTGA , IGA B12/Folate/Iron studies: No results found for: [id number] , FOLATE , IRON , TIBC , UIBC , IRONSAT , FERRITIN IBD Biomarkers No results found for: CRP No results found for: SEDRATE Viral Hepatitis No results found for: HEPAIGM , HAV , HEPBSAG , HEPBSAB , HEPBEAB , HEPBIGM , HEPBCAB , HEPBCOREAB , HBVNAT , HCVSCR , HEPCAB , HCVNAT , HCVPCR , HCVTMA No results found for: GGT Liver Workup No results found for: SMOOTHMUSCAB , MITOAB No results found for: MOISÉS , SMOOTHMUSCAB , CERULOPLSM , [id number] , TTGA , IGA , TSH , FREET4 , AFP No results found for: TSH , Q4GDIQD , O4JEZUP , THYROIDAB Pancreatitis No results found for: AMYLASE , LIPASE , TRIG , CALCIUM No results found for: HIV1X2 HISTORY: Problem list: Patient Active Problem List Diagnosis Anemia Anxiety Colitis Endometrial thickening on ultrasound Endometriosis Endometriosis of left fallopian tube Gastro-esophageal reflux disease without esophagitis Christie's disease High blood pressure 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 No pertinent past medical history. Past Surgical History: History reviewed. No pertinent surgical history. FAMILY HISTORY: No family history on file. SOCIAL HISTORY: Social History Tobacco Use Smoking status: Former Types: Cigarettes Smokeless tobacco: Never Vaping Use Vaping status: Every Day Substances: Nicotine Substance Use Topics Alcohol use: Not Currently Drug use: Never ALLERGIES: Latex, Beta-blockers (beta-adrenergic blocking agts), Diltiazem, and Ondansetron Current Medications: Current Outpatient Medications: amLODIPine (Norvasc) 5 mg tablet, Take 1 tablet by mouth twice a day., Disp: , Rfl: azelastine (Optivar) 0.05 % ophthalmic solution, Administer 1 drop into affected eye(s) twice a day., Disp: , Rfl: cholecalciferol, vitamin D3, 50 mcg (2,000 unit) capsule, Take 1 capsule by mouth in the morning., Disp: , Rfl: fluticasone (Flonase) 50 mcg/actuation nasal spray, 1 spray by Does not apply route in the morning., Disp: , Rfl: hydrOXYzine pamoate (Vistaril) 25 mg capsule, Take by mouth., Disp: , Rfl: hyoscyamine 0.125 mg dissolvable tablet, , Disp: , Rfl: levothyroxine (Synthroid, Levoxyl) 137 mcg tablet, Take 137 mcg by mouth in the morning., Disp: , Rfl: loratadine 10 mg capsule, Take 1 cap (more content not included)... Normal [facility] Labon 01-19-2025 Lab [id number] Quyen Lewis 1990 Date Provider Department Ramona 01/19/2025 [id number] MP LAB RESOURCE MP DRAW Medical Pavi No family history on file Normal [facility] Office Visiton 01-19-2025 Follow-up visit [id number] Quyen Lewis 1990 Date Provider Department Ramona 01/19/2025 [id number]-XGJBJLRQVMARISSA ROBBINS*MP GI Medical Pavi No family history on file Level of Service:92833 MT OFFICE/OUTPATIENT NEW MODERATE MDM 45 MINUTES Reason for Visit and Comments: New Patient [632] irregular bowel habits [Other] Normal [facility] Orders Onlyon 01-19-2025 Orders Only [id number] Quyen Lewis 1990 F Date Provider Department Center 01/19/2025 [facility] No family history on file Normal [facility] TISSUE TRANSGLUTAMINASE, IGG on 01-19-2025 TISSUE TRANSGLUTAMINASE, IGG <0.82 Normal 0.00-4.99 [facility] Comment on above: Result Comment: INTE RPRETIVE INFORMATION: Tissue Transglutaminase Ab, IgG In individuals [...] in patients without IgA deficiency. Performed By: [employer] [address] [place] [address] Student Success Advisor: Yuriy Cardenas MD, PhD CLIA Number: [id number] Performed By: #### L [id number] #### [facility] LABORATORY (BEAKER) [address] [place] [address] FUNDUS PHOTOS OU (BOTH EYES) on 01-11-2025 [facility] Radiology Study observation (narrative) [facility] OCT OPTIC NERVE CIRRUS OU (B OTH EYES)on 01-11-2025 [facility] Radiology Study observation (narrative) [facility] VISUAL FIELD 24-2 OU (BOTH E YES)on 01-11-2025 [facility] Radiology Study observation (narrative) [facility] CBC with Auto Differentialon 11-27-2024 Basophils (Bld) [#/Vol] 0.02 10*3/uL [facility] Basophils/100 WBC (Bld) 0 % 0 - 2 % [facility] Eosinophils (Bld) [#/Vol] 0.11 10*3/uL [facility] Eosinophils/100 WBC (Bld) 2 % 0 - 5 % [facility] Erythrocyte distribution width (RBC) [Ratio] 12.7 % 12.1 - 15.2 % [facility] Hematocrit (Bld) [Volume fraction] 40.2 % 36.0 - 46.0 % [facility] Hemoglobin (Bld) [Mass/Vol] 14.2 g/dL 12.0 - 16.0 g/dL [facility] Immature granulocytes (Bld) [#/Vol] 0.01 10*3/uL [facility] Immature granulocytes/100 WBC (Bld) 0 % 0 - 5 % [facility] Interpretation and review of laboratory results Abnormal [facility] Lymphocytes/100 WBC (Bld) 30 % 15 - 40 % [facility] Lymphocytes/100 WBC (Bld) 1.67 % [facility] MCH (RBC) [Entitic mass] 28.1 pg 26.0 - 34.0 pg [facility] MCHC (RBC) [Mass/Vol] 35.3 g/dL 31.0 - 37.0 g/dL [facility] MCV (RBC) [Entitic vol] 79.6 fL Low 80.0 - 100.0 fL [facility] Monocytes/100 WBC (Bld) 6 % 4 - 8 % [facility] Monocytes/100 WBC (Bld) 0.36 % [facility] Neutrophils/100 WBC (Bld) 62 % 47 - 75 % [facility] Platelet mean volume (Bld) [Entitic vol] 9.6 fL 6.0 - 12.0 fL [facility] Platelets (Bld) [#/Vol] 301 10*3/uL [facility] RBC (Bld) [#/Vol] 5.05 10*6/uL 4.00 - 5.2 0 m/uL [facility] Segmented neutrophils/100 WBC (Bld) 3.42 % [facility] WBC other (Bld) [#/Vol] 5.6 [facility] CBC with Diffon 11-27-2024 Abs. Basophil 0.02 k/uL Normal 0.00-0.20 [facility] Comment on above: Performed By: #### F AVILA #### [facility] [place] [address] Circulation Manager: Haim Wu MD #### CP, CDP #### [facility] [address] [place] [address] Circulation Manager: Pavan Davis MD Abs.Imm.Granulocyte 0.01 k/uL Normal 0.00-0.30 [facility] Comment on above: Performed By: #### F AVILA #### [address] [id number] Circulation Manager: Haim Wu MD #### CP, CDP #### [facility] [address] [place] [id number] ( Circulation Manager: Pavan Davis MD Abs.Neutrophil (Seg) 3.42 k/uL Normal 2.5-7.0 [facility] Comment on above: Performed By: #### F AVILA #### [address] [address] Circulation Manager: Haim Wu MD #### CP, CDP #### [facility] [address] [place] [address] Circulation Manager: Pavan Davis MD Basophils/100 WBC (Bld) 0 % Normal 0-2 [facility] Comment on above: Performed By: #### F AVILA #### [place] [address] Circulation Manager: Haim Wu MD #### CP, CDP #### [facility] [address] [place] [phone] ( Circulation Manager: Pavan Davis MD Eosinophils (Bld) [#/Vol] 0.11 10*3/uL Normal 0.00-0.40 [facility] Comment on above: Performed By: #### F AVILA #### [address] [id number] Circulation Manager: Haim Wu MD #### CP, CDP #### [facility] [address] [place], [place] [phone] Circulation Manager: Pavan Davis MD Eosinophils/100 WBC (Bld) 2 % Normal 0-5 [facility] Comment on above: Performed By: #### F AVILA #### [place] [address] [place], [place] [id number] Circulation Manager: Haim Wu MD #### CP, CDP #### [facility] [address] [place], [place] [id number] Circulation Manager: Pavan Davis MD Erythrocyte distribution width (RBC) [Ratio] 12.7 % Normal 12.1-15.2 [facility] Comment on above: Performed By: #### F AVILA #### [address] [id number] Circulation Manager: Haim Wu MD #### CP, CDP #### [facility] [address] [place], [place] [phone] Circulation Manager: Pavan Davis MD Hematocrit (Bld) [Volume fraction] 40.2 % Normal 36.0-46.0 [facility] Comment on above: Performed By: #### F AVILA #### [address] [phone] Circulation Manager: Haim Wu MD #### CP, CDP #### [facility] [address] [place], [place] [phone] Circulation Manager: Pavan Davis MD Hemoglobin (Bld) [Mass/Vol] 14.2 g/dL Normal 12.0-16.0 [facility] Comment on above: Performed By: #### F AVILA #### [address] [id number] Circulation Manager: Haim Wu MD #### CP, CDP #### [facility] [address] [place], [place] [phone] Circulation Manager: Pavan Davis MD Immature granulocytes/100 WBC (Bld) 0 % Normal 0-5 [facility] Comment on above: Performed By: #### F AVILA #### [address] [id number] Circulation Manager: Haim Wu MD #### CP, CDP #### [facility] [address] [place], [place] [phone] Circulation Manager: Pavan Davis MD Lymphocytes (Bld) [#/Vol] 1.67 10*3/uL Normal 1.00-4.80 [facility] Comment on above: Performed By: #### F AVILA #### [address] [phone] Circulation Manager: Haim Wu MD #### CP, CDP #### [facility] [address] [place], [place] [phone] Circulation Manager: Pavan Davis MD Lymphocytes/100 WBC (Bld) 30 % Normal 15-40 [facility] Comment on above: Performed By: #### F AVILA #### [address] [address] Circulation Manager: Haim Wu MD #### CP, CDP #### [facility] [address] [place], [place] [phone] Circulation Manager: Pavan Davis MD MCH (RBC) [Entitic mass] 28.1 pg Normal 26.0-34.0 [facility] Comment on above: Performed By: #### F AVILA #### [address] [address] Circulation Manager: Haim Wu MD #### CP, CDP #### [facility] [address] [place], [place] [phone] Circulation Manager: Pavan Davis MD MCHC (RBC) [Mass/Vol] 35.3 g/dL Normal 31.0-37.0 [facility] Comment on above: Performed By: #### F AVILA #### [address] [id number] Circulation Manager: Haim Wu MD #### CP, CDP #### [facility] [address] [place], [place] [phone] Circulation Manager: Pavan Davis MD MCV (RBC) [Entitic vol] 79.6 fL Low 80.0-100.0 [facility] Comment on above: Performed By: #### F AVILA #### [address] [phone] Circulation Manager: Haim Wu MD #### CP, CDP #### [facility] [address] [place], [place] [phone] Circulation Manager: Pavan Davis MD Monocytes (Bld) [#/Vol] 0.36 10*3/uL Normal 0.00-1.00 [facility] Comment on above: Performed By: #### F AVILA #### [address] [phone] Circulation Manager: Haim Wu MD #### CP, CDP #### [facility] [address] [place], [place] [phone] Circulation Manager: Pavan Davis MD Monocytes/100 WBC (Bld) 6 % Normal 4-8 [facility] Comment on above: Performed By: #### F AVILA #### [address] [phone] Circulation Manager: Haim Wu MD #### CP, CDP #### [facility] [address] [place], [place] [phone] Circulation Manager: Pavan Davis MD Neutrophil (Seg) 62 % Normal 47-75 [facility] Comment on above: Performed By: #### F AVILA #### [facility] [address] [place] [address] Circulation Manager: Haim Wu MD #### CP, CDP #### [facility] [address] [place], [place] [phone] Circulation Manager: Pavan Davis MD Platelet mean volume (Bld) [Entitic vol] 9.6 fL Normal 6.0-12.0 [facility] Comment on above: Performed By: #### F AVILA #### [place] [address] [place] [address] Circulation Manager: Haim Wu MD #### CP, CDP #### [facility] [address] [place], [place] [phone] Circulation Manager: Pavan Davis MD Platelets (Bld) [#/Vol] 301 10*3/uL Normal 140-450 [facility] Comment on above: Performed By: #### F AVILA #### [facility] [address] [place] [address] Circulation Manager: Haim Wu MD #### CP, CDP #### [facility] [address] [place], [place] [phone] Circulation Manager: Pavan Davis MD RBC (Bld) [#/Vol] 5.05 10*6/uL Normal 4.00-5.20 [facility] Comment on above: Performed By: #### F AVILA #### [facility] [address] [place] [address] Circulation Manager: Haim Wu MD #### CP, CDP #### [facility] [address] [place], [place] [phone] Circulation Manager: Pavan Davis MD WBC (Bld) [#/Vol] 5.6 10*3/uL Normal 3.5-11.0 [facility] Comment on above: Performed By: #### F AVILA #### [facility] [address] [place], [place] [phone] Circulation Manager: Haim Wu MD #### CP, CDP #### [facility] [address] [place], [place] [phone] Circulation Manager: Pavan Davis MD Ferritinon 11-27-2024 Ferritin [Mass/Vol] 33 ng/mL 15 - 150 ng/mL [facility] Comment on above: FERRITIN Reference Ranges: Adult Males 20 - 60 years: 30 - 400 ng/mL Adult females 17 - 60 years: 13 - 150 ng/mL Adults greater than 60 years: no established reference range Pediatrics: no established reference range Ferritin [Mass/Vol] 33 ng/mL Normal 15-150 [facility] Comment on above: Result Comment: FERRITIN Reference Ranges: Adult Males 20 - 60 years: 30 - 400 ng/mL Adult females 17 - 60 years: 13 - 150 ng/mL Adults greater than 60 years: no established reference range Pediatrics: no established reference range Performed By: #### F AVILA #### [facility] [address] [place], [place] [phone] Circulation Manager: Haim uW MD #### CP, CDP #### [facility] [address] [place], [place] [phone] Circulation Manager: Pavan Davis MD Ironon 11-27-2024 Iron [Mass/Vol] 49 ug/dL 37 - 145 ug/dL [facility] Iron [Mass/Vol] 49 ug/dL Normal 37-145 [facility] Comment on above: Performed By: #### F AVILA #### [facility] [address] [place], [place] [phone] Circulation Manager: Haim Wu MD #### CP, CDP #### [facility] Lab [address] [place], [place] [phone] Circulation Manager: Pavan Davis MD No Panel Informationon 11-27 [facility] T3, Freeon 11-27-2024 Free T3 [Mass/Vol] 3.27 pg/mL 2.00 - 4. 40 pg/mL [facility] Free T3 [Mass/Vol] 3.27 pg/mL Normal 2.00-4.40 [facility] Comment on above: Performed By: #### F AVILA #### [address] [address] Circulation Manager: Haim Wu MD #### CP, CDP #### [facility] [address] [place] [address] Circulation Manager: Pavan Davis MD T4on 11-27-2024 T4 [Mass/Vol] 10.2 ug/dL 4.5 - 11.7 ug/dL [facility] TSHon 11-27-2024 TSH Qn 1.03 m[IU]/L [facility] Thyroid Stim. Horm.on 2024 Thyroid Stim. Horm. 1.03 uIU/mL Normal 0.27-4.20 [facility] Comment on above: Performed By: #### F AVILA #### [address] [address] Circulation Manager: Haim Wu MD #### CP, CDP #### [facility] [address] [place] [address] Circulation Manager: Pavan Davis MD Thyroxine T4on 11-27-2024 T4 [Mass/Vol] 10.2 ug/dL Normal 4.5-11.7 [facility] Comment on above: Performed By: #### F AVILA #### [address] [address] Circulation Manager: Haim Wu MD #### CP, CDP #### [facility] [address] [place] [address] Circulation Manager: MD Per Bates 11-10-2024 L -- ---- Specimen: [id number] Received: 11/10/24 Status: RENO Balderas Num: [id number] Spec Type: Cytology Subm Dr: Michele Peterson DO Tissues: A FNA SLIDES NOPATH (RT THY NOD) Procedures: Cyto Int and EZEQUIEL [facility]ling[facility]/13 ---- Age/ Patient Sex Location Account Attending Physician ---- Quyen Lewis 34/F [place] [id number] Michele Peterson DO ---- SPEC NUM: [id number] RECD: 11/10/24 STATUS: RENO BALDERAS NUM: [id number] SPEEDY: 11/10/[address]: Michele Peterson DO ENTERED: 11/10/[address] [facility] [address]: SPEC TYPE: Cytology DEPT: CNG ENTERED BY: [id number] RECV BY: [id number] ORDERED: Cyto Int and Re, PAPSTN/13 ORDERED: Cyto Int and Re, PAPSTN/13 Supplemental Report Addendum 1 Entered: 11/23/24 Afirma testing results: Afirma GSC benign. See attached report. Addendum Signed (signature on file) Oc Roque MD 11/23/241609 ---- Pathological Diagnosis Right thyroid nodule, FNA cytology: -Hypercellular preparation in many smears appropriate for assessment -Mostly are benign follicular cells with small uniform ovoid nuclei -However, rare follicular groups are more dense and hypercellular in both preparations -The overall findings is also suspicious for adenomatous hyperplasia and may suggest atypia of undetermined significance, the category 3 Center Line system ---- Specimen: [id number] Received: 11/10/24 Status: RENO Balderas Num: [id number] Spec Type: Cytology Subm Dr: Michele Peterson DO Tissues: A FNA SLIDES NOPATH (RT THY NOD) Procedures: Cyto Int and Re, PAPSTN/13 ---- Patient: Quyen Lewis [id number] (Continued) ---- Specimen: [id number] Received: 11/10/24 (Continued) Pathological Diagnosis (Continued) Signed (signature on file) Rohini Crow MD 11/11/24 1132 ---- Specimen: [id number] Received: 11/10/24 Status: RENO Balderas Num: [id number] Spec Type: Cytology Subm Dr: Michele Peterson DO Tissues: A FNA SLIDES NOPATH (RT THY NOD) Procedures: Cyto Int and Re, PAPSTN/13 ---- Patient: Quyen Lewis [id number] (Continued) ---- Specimen: [id number] Received: 11/10/24 (Continued) Pathological Diagnosis (Continued) -Pending further molecular triage assessment Clinical Information Right Thyroid Nodule Gross Description Received fixed in Cytolyt is 30 ml red hazy fixed fluid for cytology said to have been obtained as Right Thyroid Nodule. ThinPrep preparations are prepared for microscopic examination. Also received are 12 spray fixed smeared slides for pap and a Veracyte vial stored at -20 for microscopic examination. (CC/nh) Microscopic Description Microscopic examinations are performed supporting the above interpretation CPT Codes 05165 ---- ---- Specimen: [id number] Received: 11/10/24 Status: RENO Badleras Num: [id number] Spec Type: Cytology Subm Dr: Michele Peterson DO Tissues: A FNA SLIDES NOPATH (RT THY NOD) Procedures: Cyto Int and Re, PAPSTN/13 ---- Patient: Quyen Leiws [id number] (Continued) ---- Signed (signature on file) Chin-Riaz Crow MD 11/11/24 1132 Normal [facility] Physician [facility] Surgical Pathology Reporton 11-03-2024 Surgical Pathology Report (NOTE) Path Number: [id number] -- Diagnosis -- Right labia skin, biopsy: -Benign polypoid neurotized nevus. Pavan Davis M.D. Electronically Signed Out 11/05/2024 Clinical Information Pre-Op Diagnosis: LABIAL SKIN TAG Operative Findings: RIGHT LABIA MINORA mj Source of Specimen A: RIGHT LABIA MINORA SKIN TAG Gross Description QUYEN LEWIS LABIAL SKIN TAG Received in formalin is a 0.3 x 0.3 x 0.3 cm oro papule. Inked intact 1cs. Iris Girard/mj:11/04/2024 Microscopic Description Microscopic examination performed. Sections show polypoid skin with a collection of spindled type cells with light wavy pink cytoplasm that are positive for Melan triple stain and S100 immunostains, confirming neurotized nevus. Controls react as expected. Processing Lab: [address] [id number] Interpretation Performed at [address] [id number] SURGICAL PATHOLOGY CONSULTATION Patient Name: QUYEN LEWIS. Med Rec: [id number] [facility] ANATOMIC PATHOLOGY [address] [place] [phone] Normal [facility] Anti-Thy Peroxidaseon 2023 Anti-Thy Peroxidase 12.0 IU/mL Normal 0.0-25.0 [facility] Comment on above: Result Comment: Reference Range: <25.0 Negative 25.0-35.0 Equivocal >35.0 Positive When results are Equivocal, it is recommended to retest after 8-12 weeks. Performed By: #### F AVILA #### [address] [phone] Circulation Manager: Haim Wu MD #### CP, CDP #### [facility] [address] [place] [address] Circulation Manager: Pavan Davis MD Thyroglobulin Abon Thyroglobulin Ab Qn 25.0 [IU]/mL Normal 0.0-40.0 [facility] Comment on above: Result Comment: Reference Range: <40.0 Negative 40.0-60.0 Equivocal >60.0 Positive When results are Equivocal, it is recommended to retest after 8-12 weeks. Performed By: #### F AVILA #### [address] [phone] Circulation Manager: Haim Wu MD #### CP, CDP #### [facility] [address] [facility] [place] [address] Circulation Manager: Pavan Davis MD CBC with Diffon 09-23-2024 Abs. Basophil 0.02 k/uL Normal 0.00-0.20 [facility] Comment on above: Performed By: #### F AVILA #### [address] [phone] Circulation Manager: Haim Wu MD #### CP, CDP #### [facility] [address] [place], [place] [phone] Circulation Manager: Pavan Davis MD Abs.Imm.Granulocyte 0.01 k/uL Normal 0.00-0.30 [facility] Comment on above: Performed By: #### F AVILA #### [address] [phone] Circulation Manager: Haim Wu MD #### CP, CDP #### [facility] [address] [place] [address] Circulation Manager: Pavan Davis MD Abs.Neutrophil (Seg) 3.62 k/uL Normal 2.5-7.0 [facility] Comment on above: Performed By: #### F AVILA #### [address] [phone] Circulation Manager: Haim Wu MD #### CP, CDP #### [facility] [address] [place] [phone] Circulation Manager: Pavan Davis MD Basophils/100 WBC (Bld) 0 % Normal 0-2 [facility] Comment on above: Performed By: #### F AVILA #### [address] [phone] Circulation Manager: Haim Wu MD #### CP, CDP #### [facility] [address] [place] [phone] Circulation Manager: Pavan Davis MD Eosinophils (Bld) [#/Vol] 0.13 10*3/uL Normal 0.00-0.40 [facility] Comment on above: Performed By: #### F AVILA #### [address] [phone] Circulation Manager: Haim Wu MD #### CP, CDP #### [facility] [address] [place] [phone] Circulation Manager: Pavan Davis MD Eosinophils/100 WBC (Bld) 2 % Normal 0-5 [facility] Comment on above: Performed By: #### F AVILA #### [address] [place] [address] Circulation Manager: Haim Wu MD #### CP, CDP #### [facility] [address] [place], [place] [phone] Circulation Manager: Pavan Davis MD Erythrocyte distribution width (RBC) [Ratio] 12.9 % Normal 12.1-15.2 [facility] Comment on above: Performed By: #### F AVIAL #### [address] [address] Circulation Manager: Haim Wu MD #### CP, CDP #### [facility] [address] [place], [place] [phone] Circulation Manager: Pavan Davis MD Hematocrit (Bld) [Volume fraction] 37.6 % Normal 36.0-46.0 [facility] Comment on above: Performed By: #### F AVILA #### [address] [address] Circulation Manager: Haim Wu MD #### CP, CDP #### [facility] [address] [place], [place] [phone] Circulation Manager: Pavan Davis MD Hemoglobin (Bld) [Mass/Vol] 13.7 g/dL Normal 12.0-16.0 [facility] Comment on above: Performed By: #### F AVILA #### [facility] [address] [place] [address] Circulation Manager: Haim Wu MD #### CP, CDP #### [facility] [address] [place], [place] [phone] Circulation Manager: Pavan Davis MD Immature granulocytes/100 WBC (Bld) 0 % Normal 0-5 [facility] Comment on above: Performed By: #### F AVILA #### [facility] [address] [place], [place] [phone] Circulation Manager: Haim Wu MD #### CP, CDP #### [facility] [address] [place], [place] [phone] Circulation Manager: Pavan Davis MD Lymphocytes (Bld) [#/Vol] 1.61 10*3/uL Normal 1.00-4.80 [facility] Comment on above: Performed By: #### F AVILA #### [facility] [address] [place] [address] [phone] Circulation Manager: Haim Wu MD #### CP, CDP #### [facility] [address] [place], [place] [phone] Circulation Manager: Pavan Davis MD Lymphocytes/100 WBC (Bld) 28 % Normal 15-40 [facility] Comment on above: Performed By: #### F AVILA #### [facility] [address] [place] [address] [phone] Circulation Manager: Haim Wu MD #### CP, CDP #### [facility] [address] [place], [place] [phone] Circulation Manager: Pavan Davis MD MCH (RBC) [Entitic mass] 29.0 pg Normal 26.0-34.0 [facility] Comment on above: Performed By: #### F AVILA #### [facility] [address] [place] [address] Circulation Manager: Haim Wu MD #### CP, CDP #### [facility] [address] [place], [place] [phone] Circulation Manager: Pavan Davis MD MCHC (RBC) [Mass/Vol] 36.4 g/dL Normal 31.0-37.0 [facility] Comment on above: Performed By: #### F AVILA #### [facility] [address] [place] [address] Circulation Manager: Haim Wu MD #### CP, CDP #### [facility] [address] [place] [address] Circulation Manager: Pavan Davis MD MCV (RBC) [Entitic vol] 79.5 fL Low 80.0-100.0 [facility] Comment on above: Performed By: #### F AVILA #### [address] [address] Circulation Manager: Haim Wu MD #### CP, CDP #### [facility] [address] [place] [address] Circulation Manager: Pavan Davis MD Monocytes (Bld) [#/Vol] 0.42 10*3/uL Normal 0.00-1.00 [facility] Comment on above: Performed By: #### F AVILA #### [address] [address] Circulation Manager: Haim Wu MD #### CP, CDP #### [facility] [address] [place] [address] Circulation Manager: Pavan Davis MD Monocytes/100 WBC (Bld) 7 % Normal 4-8 [facility] Comment on above: Performed By: #### F AVILA #### [address] [address] Circulation Manager: Haim Wu MD #### CP, CDP #### [facility] [address] [place] [address] Circulation Manager: Pavan Davis MD Neutrophil (Seg) 63 % Normal 47-75 [facility] Comment on above: Performed By: #### F AVILA #### [address] [phone] Circulation Manager: Haim Wu MD #### CP, CDP #### [facility] [address] [place] [address] Circulation Manager: Pavan Davis MD Platelet mean volume (Bld) [Entitic vol] 9.6 fL Normal 6.0-12.0 [facility] Comment on above: Performed By: #### F AVILA #### [facility] [address] [place] [address] Circulation Manager: Haim Wu MD #### CP, CDP #### [facility] [address] [place], [place] [phone] Circulation Manager: Pavan Davis MD Platelets (Bld) [#/Vol] 242 10*3/uL Normal 140-450 [facility] Comment on above: Performed By: #### F AVILA #### [address] [address] Circulation Manager: Haim Wu MD #### CP, CDP #### [facility] [address] [place] [address] Circulation Manager: Pavan Davis MD RBC (Bld) [#/Vol] 4.73 10*6/uL Normal 4.00-5.20 [facility] Comment on above: Performed By: #### F AVILA #### [facility] [address] [place] [address] Circulation Manager: Haim Wu MD #### CP, CDP #### [facility] [address] [place], [place] [phone] Circulation Manager: Pavan Davis MD WBC (Bld) [#/Vol] 5.8 10*3/uL Normal 3.5-11.0 [facility] Comment on above: Performed By: #### F AVILA #### [address] [phone] Circulation Manager: Haim Wu MD #### CP, CDP #### [facility] [address] [place], [place] [phone] Circulation Manager: Pavan Davis MD Comp Metabolic Profon 2023 Albumin [Mass/Vol] 4.7 g/dL Normal 3.5-5.2 [facility] Comment on above: Performed By: #### M G, TSH, CP, CDP #### [facility] [address] [place], [place] [phone] Circulation Manager: Pavan Davis MD #### FT3, T4 #### [address] [phone] Circulation Manager: Haim Wu MD Alkaline Phos 57 U/L Normal 35-104 [facility] Comment on above: Performed By: #### M G, TSH, CP, CDP #### [facility] [address] [place], [place] [phone] Circulation Manager: Pavan Davis MD #### FT3, T4 #### [address] [phone] Circulation Manager: Haim Wu MD ALT [Catalytic activity/Vol] 51 U/L High 5-33 [facility] Comment on above: Performed By: #### M G, TSH, CP, CDP #### [facility] [address] [place], [place] [phone] Circulation Manager: Pavan Davis MD #### FT3, T4 #### [address] [address] Circulation Manager: Haim Wu MD Anion gap [Moles/Vol] 17 mmol/L Normal 9-17 [facility] Comment on above: Performed By: #### M G, TSH, CP, CDP #### [facility] [address] [place], [place] [phone] Circulation Manager: Pavan Davis MD #### FT3, T4 #### [address] [phone] Circulation Manager: Haim Wu MD AST [Catalytic activity/Vol] 38 U/L High <32 [facility] Comment on above: Performed By: #### M G, TSH, CP, CDP #### [facility] [address] [place], [place] 1571990 Circulation Manager: Pavan Davis MD #### FT3, T4 #### [address] [phone] Circulation Manager: Haim Wu MD Bilirubin [Mass/Vol] 0.3 mg/dL Normal 0.3-1.2 [facility] Comment on above: Performed By: #### M G, TSH, CP, CDP #### [facility] [address] [place], [place] [phone] Circulation Manager: Pavan Davis MD #### FT3, T4 #### [address] [phone] Circulation Manager: Haim Wu MD BUN/CRE Ratio 18 Normal 9-20 [facility] Comment on above: Performed By: #### M G, TSH, CP, CDP #### [facility] [address] [place], [place] [phone] Circulation Manager: Pavan Davis MD #### FT3, T4 #### [address] [phone] Circulation Manager: aHim Wu MD Calcium [Mass/Vol] 9.8 mg/dL Normal 8.6-10.4 [facility] Comment on above: Performed By: #### M G, TSH, CP, CDP #### [facility] [address] [place] [address] Circulation Manager: Pavan Davis MD #### FT3, T4 #### [facility] [address] [place] [address] Circulation Manager: Haim Wu MD Chloride [Moles/Vol] 101 mmol/L Normal 98-107 [facility] Comment on above: Performed By: #### M G, TSH, CP, CDP #### [facility] [address] [place] [address] Circulation Manager: Pavan Davis MD #### FT3, T4 #### [facility] [address] [place] [address] Circulation Manager: Haim Wu MD CO2 [Moles/Vol] 21 mmol/L Normal 20-31 [facility] Comment on above: Performed By: #### M G, TSH, CP, CDP #### [facility] [address] [place] [address] Circulation Manager: Pavan Davis MD #### FT3, T4 #### [facility] [address] [place] [address] Circulation Manager: Haim Wu MD Creatinine [Mass/Vol] 0.6 mg/dL Normal 0.5-0.9 [facility] Comment on above: Performed By: #### M G, TSH, CP, CDP #### [facility] [address] [place] [address] Circulation Manager: Pavan Davis MD #### FT3, T4 #### [facility] [address] [place] [address] Circulation Manager: Haim Wu MD GFR/1.73 sq M.predicted among non-blacks MDRD (S/P/Bld) [Vol rate/Area] mL/min/{1.73_m2} Normal >60 [facility] Comment on above: Result Comment: These results are not intended for [...] following therapy that affects renal tubular secretion. Performed By: #### M G, TSH, CP, CDP #### [facility] [address] [place] [address] Circulation Manager: Pavan Davis MD #### FT3, T4 #### [address] [phone] Circulation Manager: Haim Wu MD Glucose [Mass/Vol] 105 mg/dL High 70-99 [facility] Comment on above: Performed By: #### M G, TSH, CP, CDP #### [facility] [address] [place] [address] Circulation Manager: Pavan Davis MD #### FT3, T4 #### [address] [phone] Circulation Manager: Haim Wu MD Potassium [Moles/Vol] 3.8 mmol/L Normal 3.7-5.3 [facility] Comment on above: Performed By: #### M G, TSH, CP, CDP #### [facility] [address] [place] [address] Circulation Manager: Pavan Davis MD #### FT3, T4 #### [address] [phone] Circulation Manager: Haim Wu MD Protein [Mass/Vol] 7.4 g/dL Normal 6.4-8.3 [facility] Comment on above: Performed By: #### M G, TSH, CP, CDP #### [facility] [address] [place] [address] Circulation Manager: Pavan Davis MD #### FT3, T4 #### [facility] [address] [place] [address] Circulation Manager: Haim Wu MD Sodium [Moles/Vol] 139 mmol/L Normal 135-144 [facility] Comment on above: Performed By: #### M G, TSH, CP, CDP #### [facility] [address] [place], [place] [phone] Circulation Manager: Pavan Davis MD #### FT3, T4 #### [facility] [address] [place] [address] Circulation Manager: Haim Wu MD Urea nitrogen [Mass/Vol] 11 mg/dL Normal 6-20 [facility] Comment on above: Performed By: #### M G, TSH, CP, CDP #### [facility] [address] [place], [place] [phone] Circulation Manager: Pavan Davis MD #### FT3, T4 #### [facility] [address] [place] [address] Circulation Manager: Haim Wu MD Hemoglobin A1Con 09-23-2024 Glucose [Mass/Vol] 82 mg/dL Normal [facility] Comment on above: Result Comment: The ADA and AACC recommend providing the estimated average glucose result to permit better patient understanding of their HBA1c result. Performed By: #### M G, TSH, CP, CDP #### [facility] [address] [place], [place] [phone] Circulation Manager: Pavan Davis MD #### FT3, T4 #### [facility] [address] [place] [address] Circulation Manager: Haim Wu MD HbA1c (Bld) [Mass fraction] 4.5 % Normal 4.0-6.0 [facility] Comment on above: Performed By: #### M G, TSH, CP, CDP #### [facility] [address] [place], [place] [phone] Circulation Manager: Pavan Davis MD #### FT3, T4 #### [address] [phone] Circulation Manager: Haim Wu MD Insulinon 09-23-2024 Insulin 22.5 mU/L Normal [facility] Comment on above: Performed By: #### M G, TSH, CP, CDP #### [facility] [address] [place], [place] 3421990 Circulation Manager: Pavan Davis MD #### FT3, T4 #### [address] [phone] Circulation Manager: Haim Wu MD Reference Range Normal [facility] Comment on above: Result Comment: Fast in.6-24.9 30 min: 20-112 60 min: 29-88 90 min: 26-84 120 min: 22-79 Performed By: #### M G, TSH, CP, CDP #### [facility] [address] [place], [place] [phone] Circulation Manager: Pavan Davis MD #### FT3, T4 #### [address] [phone] Circulation Manager: Haim Wu MD Collection Info. 1050 Normal [facility] Comment on above: Performed By: #### M G, TSH, CP, CDP #### [facility] [address] [place], [place] 9235490 Circulation Manager: Pavan Davis MD #### FT3, T4 #### [address] [phone] Circulation Manager: Haim Wu MD Ironon 09-23-2024 Iron [Mass/Vol] 45 ug/dL Normal 37-145 [facility] Comment on above: Performed By: #### M G, TSH, CP, CDP #### [facility] [address] [place], [place] [phone] Circulation Manager: Pavan Davis MD #### FT3, T4 #### [facility] [address] [place] [address] [phone] Circulation Manager: Haim Wu MD Lipid Profileon 09-23-2024 Cholesterol [Mass/Vol] 121 mg/dL Normal 0-199 [facility] Comment on above: Result Comment: Cholesterol Guidelines: <200 Desirable 200-240 Borderline >240 Undesirable Performed By: #### M G, TSH, CP, CDP #### [facility] [address] [place], [place] [phone] Circulation Manager: Pavan Davis MD #### FT3, T4 #### [facility] [address] [place] [address] [phone] Circulation Manager: Haim Wu MD Cholesterol in HDL [Mass/Vol] 33 mg/dL Low >40 [facility] Comment on above: Result Comment: HDL Guidelines: <40 Undesirable 40-59 Borderline >59 Desirable Performed By: #### M G, TSH, CP, CDP #### [facility] [address] [place], [place] [phone] Circulation Manager: Pavan Davis MD #### FT3, T4 #### [facility] [address] [place] [address] [phone] Circulation Manager: Haim Wu MD Cholesterol in LDL [Mass/Vol] 55 mg/dL Normal 0-100 [facility] Comment on above: Result Comment: LDL Guidelines: <100 Desirable 100-129 Near to/above Desirable 130-159 Borderline >159 Undesirable Direct (measured) LDL and calculated LDL are not interchangeable tests. Performed By: #### M G, TSH, CP, CDP #### [facility] [address] [place], [place] [phone] Circulation Manager: Pavan Davis MD #### FT3, T4 #### [employer] [address] [place] [address] Circulation Manager: Haim Wu MD Cholesterol in VLDL [Mass/Vol] 33 mg/dL High 1-30 [facility] Comment on above: Performed By: #### M G, TSH, CP, CDP #### [facility] [address] [place] [address] Circulation Manager: Pavan Davis MD #### FT3, T4 #### [facility] [address] [place] [address] Circulation Manager: Haim Wu MD Cholesterol.total/Cho lesterol in HDL [Mass ratio] 3.7 {ratio} Normal [facility] Comment on above: Performed By: #### M G, TSH, CP, CDP #### [facility] [address] [place] [address] Circulation Manager: Pavan Davis MD #### FT3, T4 #### [facility] [address] [place] [address] Circulation Manager: Haim Wu MD Triglyceride [Mass/Vol] 167 mg/dL High <150 [facility] Comment on above: Result Comment: Triglyceride Guidelines: <150 Desirable 150-199 Borderline 200-499 High >499 Very high Based on AHA Guidelines for fasting triglyceride, July 2012. Performed By: #### M G, TSH, CP, CDP #### [facility] [address] [place] [address] Circulation Manager: Pavan Davis MD #### FT3, T4 #### [facility] [address] [place] [address] Circulation Manager: Haim Wu MD T3, Freeon 09-23-2024 Free T3 [Mass/Vol] 3.30 pg/mL Normal 2.00-4.40 [facility] Comment on above: Performed By: #### F AVILA #### [facility] [address] [place] [address] Circulation Manager: Haim Wu MD #### CP, CDP #### [facility] [address] [place], [place] [phone] Circulation Manager: Pavan Davis MD Free T3 [Mass/Vol] 3.30 pg/mL Normal 2.00-4.40 [facility] Comment on above: Performed By: #### M G, TSH, CP, CDP #### [facility] [address] [place], [place] [phone] Circulation Manager: Pavan Davis MD #### FT3, T4 #### [address] [address] Circulation Manager: Haim Wu MD Testosterone, Freeon 12-11-2 024 Sex Horm Bind Glob 31 nmol/L Normal 25-122 [facility] Comment on above: Performed By: #### F AVILA #### [id number] [place] [address] Circulation Manager: Haim Wu MD #### CP, CDP #### [facility] [address] [place], [place] [phone] Circulation Manager: Pavan Davis MD Testosterone [Mass/Vol] 11 ng/dL Normal 8-48 [facility] Comment on above: Performed By: #### F AVILA #### [address] [address] Circulation Manager: Haim Wu MD #### CP, CDP #### [facility] [address] [place], [place] [phone] Circulation Manager: Pavan Davis MD Testosterone,Free 2.0 pg/mL Normal 1.3-9.2 [facility] Comment on above: Result Comment: The concentration of free testosterone is derived from a mathematical expression based on the constant for the binding of testosterone to albumin and/or sex hormone binding globulin. Performed By: #### F AVILA #### [facility] [address] [place], [place] [phone] Circulation Manager: Haim Wu MD #### CP, CDP #### [facility] [address] [place], [place] [phone] Circulation Manager: Pavan Davis MD Thyroid Stim. Horm.on 2023 Thyroid Stim. Horm. 0.86 uIU/mL Normal 0.30-5.00 [facility] Comment on above: Performed By: #### F AVILA #### [facility] [address] [place] [phone] Circulation Manager: Haim Wu MD #### CP, CDP #### [facility] [address] [place], [place] [phone] Circulation Manager: Pavan Davis MD Thyroid Stim. Horm. 0.86 uIU/mL Normal 0.30-5.00 [facility] Comment on above: Performed By: #### M G, TSH, CP, CDP #### [facility] [address] [place] [address] Circulation Manager: Pavan Davis MD #### FT3, T4 #### [address] [phone] Circulation Manager: Haim Wu MD Thyroxine T4on 09-23-2024 T4 [Mass/Vol] 10.9 ug/dL Normal 4.5-11.7 [facility] Comment on above: Performed By: #### M G, TSH, CP, CDP #### [facility] [address] [place] [address] Circulation Manager: Pavan Davis MD #### FT3, T4 #### [address] [phone] Circulation Manager: Haim Wu MD Thyroxine, Freeon 09-23-2024 Thyroxine, Free 1.5 ng/dL Normal 0.92-1.68 [facility] Comment on above: Performed By: #### F AVILA #### [facility] [address] [place] [address] Circulation Manager: Haim Wu MD #### CP, CDP #### [facility] [address] [place], [place] [phone] Circulation Manager: Pavan Davis MD Vitamin D 25 OHon 09-23-2024 Vitamin D 25 [place] 42.2 ng/mL Normal 30.0-100.0 [facility] Comment on above: Result Comment: Reference Range: Vitamin D status Range Deficiency <20 ng/mL Mild Deficiency 20-30 ng/mL Sufficiency 30-100 ng/mL Toxicity >100 ng/mL Performed By: #### F AVILA #### [facility] [address] [place] [address] Circulation Manager: Haim Wu MD #### CP, CDP #### [facility] [address] [place] [address] Circulation Manager: Pavan Davis MD US THYROIDon 08-17-2024 US THYROID EXAMINATION: THYROID ULTRASOUND 08/17/2024 COMPARISON: None. HISTORY: ORDERING SYSTEM PROVIDED HISTORY: Chronic lymphocytic thyroiditis FINDINGS: Right thyroid lobe: 4.4 x 2.3 x 2.5cm Left thyroid lobe: 3.5 x 1.1 x 1.3cm Isthmus: 0.5cm Echotexture: Normal Vascularity: Normal Thyroid Nodules: NODULE: 1 Size: 27 x 19 x 24 mm Location: Mid right thyroid 1. Composition: Almost completely solid (2) 2. Echogenicity: Isoechoic (1) 3. Shape: Rnkno-iwml-tyda (0) 4. Margins: Ill-defined (0) 5. Echogenic foci: None (0) ACR TI-RADS total points: 3 ACR TI-RADS risk category: TR3 Soft tissues: No visualized lymphadenopathy IMPRESSION: Right thyroid nodule as detailed with potential follow-up as below: NODULE 1: ACR TI-RADS TR3: Recommend: Ultrasound-guided fine needle aspiration. ACR TI-RADS recommendations: TR5 (>= 7 points): FNA if >= 1 cm; follow-up if 0.5-0.9 cm in 1, 2, 3, 4, and 5 years TR4 (4-6 points): FNA if >= 1.5 cm; follow-up if 1.0-1.4 cm in 1, 2, 3, and 5 years TR3 (3 points): FNA if >= 2.5 cm; follow-up if 1.5-2.4 cm in 1, 3, and 5 years TR2 (2 points): No FNA or follow-up TR1 (0 points): No FNA or follow-up ACR TI-RADS recommends that no more than two nodules with the highest ACR TI-RADS point total should be biopsied and no more than four nodules should be followed. Interpreted by: Mario Stewart DO Signed by: Mario Stewart DO 08/17/24 Final result Normal [facility] US Thyroid glandon Right thyroid nodule as detailed with potential follow-up as below: NODULE 1: ACR TI-RADS TR3: Recommend: Ultrasound-guided fine needle aspiration. ACR TI-RADS recommendations: TR5 (>= 7 points): FNA if >= 1 cm; follow-up if 0.5-0.9 cm in 1, 2, 3, 4, and 5 years TR4 (4-6 points): FNA if >= 1.5 cm; follow-up if 1.0-1.4 cm in 1, 2, 3, and 5 years TR3 (3 points): FNA if >= 2.5 cm; follow-up if 1.5-2.4 cm in 1, 3, and 5 years TR2 (2 points): No FNA or follow-up TR1 (0 points): No FNA or follow-up ACR TI-RADS recommends that no more than two nodules with the highest ACR TI-RADS point total should be biopsied and no more than four nodules should be followed. [facility] EXAMINATION: THYROID ULTRASOUND 08/17/2024 COMPARISON: None. HISTORY: ORDERING SYSTEM PROVIDED HISTORY: Chronic lymphocytic thyroiditis FINDINGS: Right thyroid lobe: 4.4 x 2.3 x 2.5cm Left thyroid lobe: 3.5 x 1.1 x 1.3cm Isthmus: 0.5cm Echotexture: Normal Vascularity: Normal Thyroid Nodules: NODULE: 1 Size: 27 x 19 x 24 mm Location: Mid right thyroid 1. Composition: Almost completely solid (2) 2. Echogenicity: Isoechoic (1) 3. Shape: Vbrmq-rbtw-bdyl (0) 4. Margins: Ill-defined (0) 5. Echogenic foci: None (0) ACR TI-RADS total points: 3 ACR TI-RADS risk category: TR3 Soft tissues: No visualized lymphadenopathy [facility] Mario Stewart, DO - 08/17/2024 EXAMINATION: THYROID ULTRASOUND 08/17/2024 COMPARISON: None. HISTORY: ORDERING SYSTEM PROVIDED HISTORY: Chronic lymphocytic thyroiditis FINDINGS: Right thyroid lobe: 4.4 x 2.3 x 2.5cm Left thyroid lobe: 3.5 x 1.1 x 1.3cm Isthmus: 0.5cm Echotexture: Normal Vascularity: Normal Thyroid Nodules: NODULE: 1 Size: 27 x 19 x 24 mm Location: Mid right thyroid 1. Composition: Almost completely solid (2) 2. Echogenicity: Isoechoic (1) 3. Shape: Zsqoj-gssh-frby (0) 4. Margins: Ill-defined (0) 5. Echogenic foci: None (0) ACR TI-RADS total points: 3 ACR TI-RADS risk category: TR3 Soft tissues: No visualized lymphadenopathy IMPRESSION: Right thyroid nodule as detailed with potential follow-up as below: NODULE 1: ACR TI-RADS TR3: Recommend: Ultrasound-guided fine needle aspiration. ACR TI-RADS recommendations: TR5 (>= 7 points): FNA if >= 1 cm; follow-up if 0.5-0.9 cm in 1, 2, 3, 4, and 5 years TR4 (4-6 points): FNA if >= 1.5 cm; follow-up if 1.0-1.4 cm in 1, 2, 3, and 5 years TR3 (3 points): FNA if >= 2.5 cm; follow-up if 1.5-2.4 cm in 1, 3, and 5 years TR2 (2 points): No FNA or follow-up TR1 (0 points): No FNA or follow-up ACR TI-RADS recommends that no more than two nodules with the highest ACR TI-RADS point total should be biopsied and no more than four nodules should be followed. [facility] Radiology Study observation (narrative) [facility] US Thyroid glandOrdered By: Mario Stewart on 08-17-2024 [facility] Work Phone: Don Montalvo Panelon 024 EBV (VCA) Ab, IgG 1033 U/mL High <100 [facility] Comment on above: Performed By: #### F AVILA #### [facility] [address] [place] [address] Circulation Manager: Haim Wu MD #### CP, CDP #### [facility] [address] [place], [place] [phone] Circulation Manager: Pavan Davis MD EBV Early Ab, IgG 61 U/mL Normal <100 [facility] Comment on above: Performed By: #### F AVILA #### [facility] [address] [place] [address] Circulation Manager: Haim Wu MD #### CP, CDP #### [facility] [address] [place] [address] Circulation Manager: Pavan Davis MD EBV Interpretation (NOTE) Normal [facility] Comment on above: Result Comment: Reference Range: Negative <100 U/mL Positive >120 U/mL Equivocal 100-120 U/mL Guidelines for the Interpretation of Don-Montalvo Viral Serologies Antibodies Clinical Situation IgG-VCA EBNA EA IgM-VCA No past infection - - - - Acute infection + - + + Convalescent phase + + +/- +/- Past infection + + - - Chronic or reactivated + + + - infection + = Antibody present - = Antibody absent Reference: Clinical Diagnosis and Management by Laboratory Methods; 17 Edition, Rashaad Alarcon M.D. Performed By: #### F AVILA #### [facility] [address] [place] [address] Circulation Manager: Haim Wu MD #### CP, CDP #### [facility] [address] [place], [place] [phone] Circulation Manager: Pavan Davis MD EBV Nuclear Ab, IgG 375 U/mL High <100 [facility] Comment on above: Performed By: #### F AVILA #### [facility] [address] [place] [address] Circulation Manager: Haim Wu MD #### CP, CDP #### [facility] [address] [place], [place] [phone] Circulation Manager: Pavan Davis MD EBV (VCA) Ab, IgM 16 U/mL Normal <100 [facility] Comment on above: Performed By: #### F AVILA #### [address] [address] Circulation Manager: Haim Wu MD #### CP, CDP #### [facility] [address] [place], [place] [phone] Circulation Manager: Pavan Davis MD Ferritinon 07-10-2024 Ferritin [Mass/Vol] 172 ng/mL High 13-150 [facility] Comment on above: Result Comment: FERRITIN Reference Ranges: Adult Males 20 - 60 years: 30 - 400 ng/mL Adult females 17 - 60 years: 13 - 150 ng/mL Adults greater than 60 years: no established reference range Pediatrics: no established reference range Performed By: #### F AVILA #### [facility] [address] [place] [address] Circulation Manager: Haim Wu MD #### CP, CDP #### [facility] [address] [place] [address] Circulation Manager: Pavan Davis MD C-Reactive Proteinon 024 CRP [Mass/Vol] mg/L Normal 0.0-5.0 [facility] Comment on above: Performed By: #### F AVILA #### [address] [address] Circulation Manager: Haim Wu MD #### CP, CDP #### [facility] [address] [place], [place] [phone] Circulation Manager: Pavan Davis MD Liver Profileon 07-09-2024 Albumin [Mass/Vol] 4.5 g/dL Normal 3.5-5.2 [facility] Comment on above: Performed By: #### E BVPRO, FERI #### [address] [address] Circulation Manager: Haim Wu MD #### CRP, LIVP #### [facility] [address] [place] [address] Circulation Manager: Pavan Davis MD Alkaline Phos 66 U/L Normal 35-104 [facility] Comment on above: Performed By: #### E BVPRO, FERI #### [address] [address] Circulation Manager: Haim Wu MD #### CRP, LIVP #### [facility] [address] [place] [address] Circulation Manager: Pavan Davis MD ALT [Catalytic activity/Vol] 37 U/L High 5-33 [facility] Comment on above: Performed By: #### E BVPRO, FERI #### [address] [address] Circulation Manager: Haim Wu MD #### CRP, LIVP #### [facility] [address] [place], [place] [phone] Circulation Manager: Pavan Davis MD AST [Catalytic activity/Vol] 29 U/L Normal <32 [facility] Comment on above: Performed By: #### E BVPRO, FERI #### [address] [phone] Circulation Manager: Haim Wu MD #### CRP, LIVP #### [facility] [address] [place] [address] Circulation Manager: Pavan Davis MD Bilirubin [Mass/Vol] 0.2 mg/dL Low 0.3-1.2 [facility] Comment on above: Performed By: #### E BVPRO, FERI #### [address] [id number] Circulation Manager: Haim Wu MD #### CRP, LIVP #### [facility] [address] [place], [place] 1076690 Circulation Manager: Pavan Davis MD Bilirubin, Indirect Can not be calculated Normal 0.0-1 .0 [facility] Comment on above: Performed By: #### E BVPRO, FERI #### [address] [phone] Circulation Manager: Haim Wu MD #### CRP, LIVP #### [facility] [address] [place] [address] Circulation Manager: Pavan Davis MD Bilirubin.indirect [Mass/Vol] mg/dL Normal <0.3 [facility] Comment on above: Performed By: #### E BVPRO, FERI #### [address] [address] Circulation Manager: Haim Wu MD #### CRP, LIVP #### [facility] [address] [place], [place] [phone] Circulation Manager: Pavan Davis MD Protein [Mass/Vol] 7.7 g/dL Normal 6.4-8.3 [facility] Comment on above: Performed By: #### E BVPRO, FERI #### [facility] [address] [place], [place] [phone] Circulation Manager: Haim Wu MD #### CRP, LIVP #### [facility] [address] [place], [place] [phone] Circulation Manager: Pavan Davis MD Ferritinon 07-03-2024 Ferritin [Mass/Vol] 204 ng/mL High 13-150 [facility] Comment on above: Result Comment: FERRITIN Reference Ranges: Adult Males 20 - 60 years: 30 - 400 ng/mL Adult females 17 - 60 years: 13 - 150 ng/mL Adults greater than 60 years: no established reference range Pediatrics: no established reference range Performed By: #### F AVILA #### [facility] [address] [place], [place] [phone] Circulation Manager: Haim Wu MD #### CP, CDP #### [facility] [address] [place] [address] Circulation Manager: Pavan Davis MD CBC with Auto Differentialon 07-02-2024 Basophils (Bld) [#/Vol] 0.03 10*3/uL [facility] Basophils/100 WBC (Bld) 1 % 0 - 2 % [facility] Eosinophils (Bld) [#/Vol] 0.21 10*3/uL [facility] Eosinophils/100 WBC (Bld) 4 % 0 - 5 % [facility] Erythrocyte distribution width (RBC) [Ratio] 20.0 % High 12.1 - 15.2 % [facility] Hematocrit (Bld) [Volume fraction] 38.2 % 36.0 - 46.0 % [facility] Hemoglobin (Bld) [Mass/Vol] 13.2 g/dL 12.0 - 16.0 g/dL [facility] Immature granulocytes (Bld) [#/Vol] 0.01 10*3/uL [facility] Immature granulocytes/100 WBC (Bld) 0 % 0 - 5 % [facility] Interpretation and review of laboratory results Abnormal [facility] Lymphocytes/100 WBC (Bld) 26 % 15 - 40 % [facility] Lymphocytes/100 WBC (Bld) 1.53 % [facility] MCH (RBC) [Entitic mass] 26.6 pg 26.0 - 34.0 pg [facility] MCHC (RBC) [Mass/Vol] 34.6 g/dL 31.0 - 37.0 g/dL [facility] MCV (RBC) [Entitic vol] 76.9 fL Low 80.0 - 100.0 fL [facility] Monocytes/100 WBC (Bld) 7 % 4 - 8 % [facility] Monocytes/100 WBC (Bld) 0.39 % [facility] Morphology Chad (Bld) [Interp] SLIGHT ANISOCYTOSIS [facility] Neutrophils/100 WBC (Bld) 63 % 47 - 75 % [facility] Platelet mean volume (Bld) [Entitic vol] 9.4 fL 6.0 - 12.0 fL [facility] Platelets (Bld) [#/Vol] 219 10*3/uL [facility] RBC (Bld) [#/Vol] 4.97 10*6/uL 4.00 - 5.2 0 m/uL [facility] Segmented neutrophils/100 WBC (Bld) 3.77 % [facility] WBC other (Bld) [#/Vol] 5.9 [facility] CBC with Diffon 07-02-2024 Abs. Basophil 0.03 k/uL Normal 0.00-0.20 [facility] Comment on above: Performed By: #### F AVILA #### [facility] [address] [place] [address] Circulation Manager: Haim Wu MD #### JONATHAN ROMERO #### [facility] [address] [place], [place] [phone] Circulation Manager: Pavan Davis MD Abs.Imm.Granulocyte 0.01 k/uL Normal 0.00-0.30 [facility] Comment on above: Performed By: #### F AVILA #### [address] [place], [place] 1543808 Circulation Manager: Haim Wu MD #### CP, CDP #### [facility] [address] [place] [address] Circulation Manager: Pavan Davis MD Abs.Neutrophil (Seg) 3.77 k/uL Normal 2.5-7.0 [facility] Comment on above: Performed By: #### F AVILA #### [address] [phone] Circulation Manager: Haim Wu MD #### CP, CDP #### [facility] [address] [phone] Circulation Manager: Pavan Davis MD Basophils/100 WBC (Bld) 1 % Normal 0-2 [facility] Comment on above: Performed By: #### F AVILA #### [address] [address] Circulation Manager: Haim Wu MD #### CP, CDP #### [facility] [address] [phone] Circulation Manager: Pavan Davis MD Eosinophils (Bld) [#/Vol] 0.21 10*3/uL Normal 0.00-0.40 [facility] Comment on above: Performed By: #### F AVILA #### [address] [id number] Circulation Manager: Haim Wu MD #### CP, CDP #### [facility] [address] [place], [place] [phone] Circulation Manager: Pavan Davis MD Eosinophils/100 WBC (Bld) 4 % Normal 0-5 [facility] Comment on above: Performed By: #### F AVILA #### [facility] [address] [place] [address] Circulation Manager: Haim Wu MD #### CP, CDP #### [facility] [address] [place], [place] [phone] Circulation Manager: Pavan Davis MD Immature granulocytes/100 WBC (Bld) 0 % Normal 0-5 [facility] Comment on above: Performed By: #### F AVILA #### [address] [place] [address] Circulation Manager: Haim Wu MD #### CP, CDP #### [facility] [address] [place] [address] Circulation Manager: Pavan Davis MD Lymphocytes (Bld) [#/Vol] 1.53 10*3/uL Normal 1.00-4.80 [facility] Comment on above: Performed By: #### F AVILA #### [facility] [address] [place] [address] Circulation Manager: Haim Wu MD #### CP, CDP #### [facility] [address] [place], [place] [phone] Circulation Manager: Pavan Davis MD Lymphocytes/100 WBC (Bld) 26 % Normal 15-40 [facility] Comment on above: Performed By: #### F AVILA #### [facility] [address] [place] [address] Circulation Manager: Haim Wu MD #### CP, CDP #### [facility] [address] [place], [place] [phone] Circulation Manager: Pavan Davis MD Monocytes (Bld) [#/Vol] 0.39 10*3/uL Normal 0.00-1.00 [facility] Comment on above: Performed By: #### F AVILA #### [facility] [address] [place] [address] Circulation Manager: Haim Wu MD #### CP, CDP #### [facility] [address] [place] [address] Circulation Manager: Pavan Davis MD Monocytes/100 WBC (Bld) 7 % Normal 4-8 [facility] Comment on above: Performed By: #### F AVILA #### [facility] [address] [place] [address] Circulation Manager: Haim Wu MD #### CP, CDP #### [facility] [address] [place] [address] Circulation Manager: Pavan Davis MD Morphology Chad (Bld) [Interp] SLIGHT Normal [facility] Comment on above: Result Comment: ANIS OCYTOSIS Performed By: #### F AVILA #### [facility] [address] [place] [address] Circulation Manager: Haim Wu MD #### CP, CDP #### [facility] [address] [place] [address] Circulation Manager: Pavan Davis MD Neutrophil (Seg) 63 % Normal 47-75 [facility] Comment on above: Performed By: #### F AVILA #### [facility] [address] [place] [address] Circulation Manager: Haim Wu MD #### CP, CDP #### [facility] [address] [place] [address] Circulation Manager: Pavan Davis MD Erythrocyte distribution width (RBC) [Ratio] 20.0 % High 12.1-15.2 [facility] Comment on above: Performed By: #### F AVILA #### [address] [id number] Circulation Manager: Haim Wu MD #### CP, CDP #### [facility] [address] [place], [place] [phone] Circulation Manager: Pavan Davis MD Hematocrit (Bld) [Volume fraction] 38.2 % Normal 36.0-46.0 [facility] Comment on above: Performed By: #### F AVILA #### [address] [phone] Circulation Manager: Haim Wu MD #### CP, CDP #### [facility] [address] [place], [place] [phone] Circulation Manager: Paavn Davis MD Hemoglobin (Bld) [Mass/Vol] 13.2 g/dL Normal 12.0-16.0 [facility] Comment on above: Performed By: #### F AVILA #### [address] [phone] Circulation Manager: Haim Wu MD #### CP, CDP #### [facility] [address] [place], [place] [phone] Circulation Manager: Pavan Davis MD MCH (RBC) [Entitic mass] 26.6 pg Normal 26.0-34.0 [facility] Comment on above: Performed By: #### F AVILA #### [address] [address] Circulation Manager: Haim Wu MD #### CP, CDP #### [facility] [address] [place], [place] [phone] Circulation Manager: Pavan Davis MD MCHC (RBC) [Mass/Vol] 34.6 g/dL Normal 31.0-37.0 [facility] Comment on above: Performed By: #### F AVILA #### [address] [phone] Circulation Manager: Haim Wu MD #### CP, CDP #### [facility] [address] [place] [address] Circulation Manager: Pavan Davis MD MCV (RBC) [Entitic vol] 76.9 fL Low 80.0-100.0 [facility] Comment on above: Performed By: #### F AVILA #### [address] [phone] Circulation Manager: Haim Wu MD #### CP, CDP #### [facility] [address] [place] [address] Circulation Manager: Pavan Davis MD Platelet mean volume (Bld) [Entitic vol] 9.4 fL Normal 6.0-12.0 [facility] Comment on above: Performed By: #### F AVILA #### [address] [phone] Circulation Manager: Haim Wu MD #### CP, CDP #### [facility] [address] [place], [place] [phone] Circulation Manager: Pavan Davis MD Platelets (Bld) [#/Vol] 219 10*3/uL Normal 140-450 [facility] Comment on above: Performed By: #### F AVILA #### [address] [phone] Circulation Manager: Haim Wu MD #### CP, CDP #### [facility] [address] [place], [place] [phone] Circulation Manager: Pavan Davis MD RBC (Bld) [#/Vol] 4.97 10*6/uL Normal 4.00-5.20 [facility] Comment on above: Performed By: #### F AVILA #### [address] [phone] Circulation Manager: Haim Wu MD #### CP, CDP #### [facility] [address] [place], [place] [phone] Circulation Manager: Pavan Davis MD WBC (Bld) [#/Vol] 5.9 10*3/uL Normal 3.5-11.0 [facility] Comment on above: Performed By: #### F AVILA #### [address] [address] Circulation Manager: Haim Wu MD #### CP, CDP #### [facility] [address] [place], [place] [phone] Circulation Manager: Pavan Davis MD Comp Metabolic Profon 2023 Albumin [Mass/Vol] 4.6 g/dL Normal 3.5-5.2 [facility] Comment on above: Performed By: #### F AVILA #### [address] [address] Circulation Manager: Haim Wu MD #### CP, CDP #### [facility] [address] [place], [place] [id number] Circulation Manager: Pavan Davis MD Alkaline Phos 64 U/L Normal 35-104 [facility] Comment on above: Performed By: #### F AVILA #### [address] [address] Circulation Manager: Haim Wu MD #### CP, CDP #### [facility] [address] [place], [place] [phone] Circulation Manager: Pavan Davis MD ALT [Catalytic activity/Vol] 45 U/L High 5-33 [facility] Comment on above: Performed By: #### F AVILA #### [facility] [address] [place] [address] Circulation Manager: Haim Wu MD #### CP, CDP #### [facility] [address] [place] [address] Circulation Manager: Pavan Davis MD Anion gap [Moles/Vol] 11 mmol/L Normal 9-17 [facility] Comment on above: Performed By: #### F AVILA #### [facility] [address] [place] [address] Circulation Manager: Haim Wu MD #### CP, CDP #### [facility] [address] [place] [address] Circulation Manager: Pavan Davis MD AST [Catalytic activity/Vol] 36 U/L High <32 [facility] Comment on above: Performed By: #### F AVILA #### [facility] [address] [place] [address] Circulation Manager: Haim Wu MD #### CP, CDP #### [facility] [address] [place] [address] Circulation Manager: Pavan Davis MD Bilirubin [Mass/Vol] 0.3 mg/dL Normal 0.3-1.2 [facility] Comment on above: Performed By: #### F AVILA #### [facility] [address] [place] [address] Circulation Manager: Haim Wu MD #### CP, CDP #### [facility] [address] [place] [address] Circulation Manager: Pavan Davis MD BUN/CRE Ratio 17 Normal 9-20 [facility] Comment on above: Performed By: #### F AVILA #### [facility] [address] [place] [address] Circulation Manager: Haim Wu MD #### CP, CDP #### [facility] [address] [place] [address] Circulation Manager: Pavan Davis MD Calcium [Mass/Vol] 10.1 mg/dL Normal 8.6-10.4 [facility] Comment on above: Performed By: #### F AVILA #### [facility] [address] [place] [address] Circulation Manager: Haim Wu MD #### CP, CDP #### [facility] [address] [place], [place] [phone] Circulation Manager: Pavan Davis MD Chloride [Moles/Vol] 105 mmol/L Normal 98-107 [facility] Comment on above: Performed By: #### F AVILA #### [address] [address] Circulation Manager: Haim Wu MD #### CP, CDP #### [facility] [address] [place], [place] [phone] Circulation Manager: Pavan Davis MD CO2 [Moles/Vol] 24 mmol/L Normal 20-31 [facility] Comment on above: Performed By: #### F AVILA #### [facility] [address] [place] [address] Circulation Manager: Haim Wu MD #### CP, CDP #### [facility] [address] [place], [place] [phone] Circulation Manager: Pavan Davis MD Creatinine [Mass/Vol] 0.6 mg/dL Normal 0.5-0.9 [facility] Comment on above: Performed By: #### F AVILA #### [address] [address] Circulation Manager: Haim Wu MD #### CP, CDP #### [facility] [address] [place], [place] [phone] Circulation Manager: Pavan Davis MD GFR/1.73 sq M.predicted among non-blacks MDRD (S/P/Bld) [Vol rate/Area] mL/min/{1.73_m2} Normal >60 [facility] Comment on above: Result Comment: These results are not intended for [...] following therapy that affects renal tubular secretion. Performed By: #### F AVILA #### [address] [address] Circulation Manager: Haim Wu MD #### CP, CDP #### [facility] [address] [place], [place] [phone] Circulation Manager: Pavan Davis MD Glucose [Mass/Vol] 100 mg/dL High 70-99 [facility] Comment on above: Performed By: #### F AVILA #### [address] [address] Circulation Manager: Haim Wu MD #### CP, CDP #### [facility] [address] [place], [place] [phone] Circulation Manager: Pavan Davis MD Potassium [Moles/Vol] 4.0 mmol/L Normal 3.7-5.3 [facility] Comment on above: Performed By: #### F AVILA #### [address] [address] Circulation Manager: Haim Wu MD #### CP, CDP #### [facility] [address] [place], [place] [phone] Circulation Manager: Pavan Davis MD Protein [Mass/Vol] 7.6 g/dL Normal 6.4-8.3 [facility] Comment on above: Performed By: #### F AVILA #### [address], [place] [phone] Circulation Manager: Haim Wu MD #### CP, CDP #### [facility] [address] [place], [place] 1518190 Circulation Manager: Pavan Davis MD Sodium [Moles/Vol] 140 mmol/L Normal 135-144 [facility] Comment on above: Performed By: #### F AVILA #### [address] [place], [place] [phone] Circulation Manager: Haim Wu MD #### CP, CDP #### [facility] [address] [place] [address] Circulation Manager: Pavan Davis MD Urea nitrogen [Mass/Vol] 10 mg/dL Normal 6-20 [facility] Comment on above: Performed By: #### F AVILA #### [address] [phone] Circulation Manager: Haim Wu MD #### CP, CDP #### [facility] [address] [place] [address] Circulation Manager: Pavan Davis MD Comprehensive Metabolic Pane [facility] 07-02-2024 Albumin [Mass/Vol] 4.6 g/dL 3.5 - 5.2 g/dL [facility] ALP [Catalytic activity/Vol] 64 U/L 35 - 104 U/L [facility] ALT [Catalytic activity/Vol] 45 U/L High 5 - 33 U/L [facility] Anion gap [Moles/Vol] 11 mmol/L 9 - 17 mmol/L [facility] AST [Catalytic activity/Vol] 36 U/L High NINF - 32 U/L [facility] Bilirubin [Mass/Vol] 0.3 mg/dL 0.3 - 1 .2 mg/dL [facility] Calcium [Mass/Vol] 10.1 mg/dL 8.6 - 10. 4 mg/dL [facility] Chloride [Moles/Vol] 105 mmol/L 98 - 10 7 mmol/L [facility] CO2 [Moles/Vol] 24 mmol/L 20 - 31 mmol/L [facility] Creatinine [Mass/Vol] 0.6 mg/dL 0.5 - 0.9 mg/dL [facility] Rodo Hughes Rate - [facility] Comment on above: These results are not intended for use [...] following therapy that affects renal tubular secretion. Glucose [Mass/Vol] 100 mg/dL High 70 - 99 mg/dL [facility] Interpretation and review of laboratory results Abnormal [facility] Potassium [Moles/Vol] 4.0 mmol/L 3.7 - 5.3 mmol/L [facility] Protein [Mass/Vol] 7.6 g/dL 6.4 - 8.3 g/dL [facility] Sodium [Moles/Vol] 140 mmol/L 135 - 144 mmol/L [facility] Urea nitrogen [Mass/Vol] 10 mg/dL 6 - 20 mg/dL [facility] Urea nitrogen/Creatinine [Mass ratio] 17 mg/mg 9 - 20 [facility] Ferritinon 06-19-2024 Ferritin [Mass/Vol] 435 ng/mL High 13-150 [facility] Comment on above: Result Comment: FERRITIN Reference Ranges: Adult Males 20 - 60 years: 30 - 400 ng/mL Adult females 17 - 60 years: 13 - 150 ng/mL Adults greater than 60 years: no established reference range Pediatrics: no established reference range Performed By: #### M G, TSH, CP, CDP #### [facility] [address] [place] [address] Circulation Manager: Pavan Davis MD #### FT3, T4 #### [facility] [address] [place], [place] [phone] Circulation Manager: Haim Wu MD Ironon 06-19-2024 Iron [Mass/Vol] 52 ug/dL Normal 37-145 [facility] Comment on above: Performed By: #### M G, TSH, CP, CDP #### [facility] [address] [place] [address] Circulation Manager: Pavan Davis MD #### FT3, T4 #### [facility] [address] [place], [place] [phone] Circulation Manager: Haim Wu MD CBC with Auto Differentialon 06-18-2024 Basophils (Bld) [#/Vol] 0.03 10*3/uL [facility] Basophils/100 WBC (Bld) 1 % 0 - 2 % [facility] Eosinophils (Bld) [#/Vol] 0.20 10*3/uL [facility] Eosinophils/100 WBC (Bld) 3 % 0 - 5 % [facility] Erythrocyte distribution width (RBC) [Ratio] 20.7 % High 12.1 - 15.2 % [facility] Hematocrit (Bld) [Volume fraction] 36.7 % 36.0 - 46.0 % [facility] Hemoglobin (Bld) [Mass/Vol] 12.5 g/dL 12.0 - 16.0 g/dL [facility] Immature granulocytes (Bld) [#/Vol] 0.02 10*3/uL [facility] Immature granulocytes/100 WBC (Bld) 0 % 0 - 5 % [facility] Interpretation and review of laboratory results Abnormal [facility] Lymphocytes/100 WBC (Bld) 26 % 15 - 40 % [facility] Lymphocytes/100 WBC (Bld) 1.58 % [facility] MCH (RBC) [Entitic mass] 25.9 pg Low 26.0 - 34.0 pg [facility] MCHC (RBC) [Mass/Vol] 34.1 g/dL 31.0 - 37.0 g/dL [facility] MCV (RBC) [Entitic vol] 76.1 fL Low 80.0 - 100.0 fL [facility] Monocytes/100 WBC (Bld) 7 % 4 - 8 % [facility] Monocytes/100 WBC (Bld) 0.40 % [facility] Morphology Chad (Bld) [Interp] MODERATE ANISOCYTOSIS [facility] Neutrophils/100 WBC (Bld) 63 % 47 - 75 % [facility] Platelet mean volume (Bld) [Entitic vol] 10.0 fL 6.0 - 12.0 fL [facility] Platelets (Bld) [#/Vol] 258 10*3/uL [facility] RBC (Bld) [#/Vol] 4.82 10*6/uL 4.00 - 5.2 0 m/uL [facility] Segmented neutrophils/100 WBC (Bld) 3.76 % [facility] WBC other (Bld) [#/Vol] 6.0 [facility] CBC with Diffon 06-18-2024 Morphology Chad (Bld) [Interp] MODERATE Normal [facility] Comment on above: Result Comment: ANIS OCYTOSIS Performed By: #### M G, TSH, CP, CDP #### [facility] [address] [place] [address] Circulation Manager: Pavan Davis MD #### FT3, T4 #### [facility] [address] [place], [place] [phone] Circulation Manager: Haim Wu MD Abs. Basophil 0.03 k/uL Normal 0.00-0.20 [facility] Comment on above: Performed By: #### M G, TSH, CP, CDP #### [facility] [address] [place] [phone] Circulation Manager: Pavan Davis MD #### FT3, T4 #### [place] [phone] Circulation Manager: Haim Wu MD Abs.Imm.Granulocyte 0.02 k/uL Normal 0.00-0.30 [facility] Comment on above: Performed By: #### M G, TSH, CP, CDP #### [facility] [address] [place] [address] Circulation Manager: Paavn Davis MD #### FT3, T4 #### [address] [phone] Circulation Manager: Haim Wu MD Abs.Neutrophil (Seg) 3.76 k/uL Normal 2.5-7.0 [facility] Comment on above: Performed By: #### M G, TSH, CP, CDP #### [facility] [address] [place] [address] Circulation Manager: Pavan Davis MD #### FT3, T4 #### [place] [phone] Circulation Manager: Haim Wu MD Basophils/100 WBC (Bld) 1 % Normal 0-2 [facility] Comment on above: Performed By: #### M G, TSH, CP, CDP #### [facility] [address] [place] [address] Circulation Manager: Pavan Davis MD #### FT3, T4 #### [address] [id number] Circulation Manager: Haim Wu MD Eosinophils (Bld) [#/Vol] 0.20 10*3/uL Normal 0.00-0.40 [facility] Comment on above: Performed By: #### M G, TSH, CP, CDP #### [facility] [address] [place] [address] Circulation Manager: Pavan Davis MD #### FT3, T4 #### [address] [phone] Circulation Manager: Haim Wu MD Eosinophils/100 WBC (Bld) 3 % Normal 0-5 [facility] Comment on above: Performed By: #### M G, TSH, CP, CDP #### [facility] [address] [place], [place] [id number] Circulation Manager: Pavan Dvais MD #### FT3, T4 #### [address] [phone] Circulation Manager: Haim Wu MD Erythrocyte distribution width (RBC) [Ratio] 20.7 % High 12.1-15.2 [facility] Comment on above: Performed By: #### M G, TSH, CP, CDP #### [facility] [address] [place], [place] [phone] Circulation Manager: Pavan Davis MD #### FT3, T4 #### [address] [phone] Circulation Manager: Haim Wu MD Hematocrit (Bld) [Volume fraction] 36.7 % Normal 36.0-46.0 [facility] Comment on above: Performed By: #### M G, TSH, CP, CDP #### [facility] [address] [place], [place] [phone] Circulation Manager: Pavan Davis MD #### FT3, T4 #### [address] [phone] Circulation Manager: Haim Wu MD Hemoglobin (Bld) [Mass/Vol] 12.5 g/dL Normal 12.0-16.0 [facility] Comment on above: Performed By: #### M G, TSH, CP, CDP #### [facility] [address] [place], [place] [phone] Circulation Manager: Pavan Davis MD #### FT3, T4 #### [address] [phone] Circulation Manager: Haim Wu MD Immature granulocytes/100 WBC (Bld) 0 % Normal 0-5 [facility] Comment on above: Performed By: #### Fanny Bonds, TSH, CP, CDP #### [facility] [address] [place], [place] 1388690 Circulation Manager: Pavan Davis MD #### FT3, T4 #### [address] [phone] Circulation Manager: Haim Wu MD Lymphocytes (Bld) [#/Vol] 1.58 10*3/uL Normal 1.00-4.80 [facility] Comment on above: Performed By: #### Fanny Bonds, FREDDIE, CP, CDP #### [facility] [address] [place], [place] [phone] Circulation Manager: Pavan Davis MD #### FT3, T4 #### [address] [phone] Circulation Manager: Haim Wu MD Lymphocytes/100 WBC (Bld) 26 % Normal 15-40 [facility] Comment on above: Performed By: #### Fanny Bonds, FREDDIE, CP, CDP #### [facility] [address] [place], [place] 9101690 Circulation Manager: Pavan Davis MD #### FT3, T4 #### [address] [phone] Circulation Manager: Haim Wu MD MCH (RBC) [Entitic mass] 25.9 pg Low 26.0-34.0 [facility] Comment on above: Performed By: #### Fanny Bonds, TSH, CP, CDP #### [facility] [address] [place], [place] [phone] Circulation Manager: Pavan Davis MD #### FT3, T4 #### [address] [id number] Circulation Manager: Haim Wu MD MCHC (RBC) [Mass/Vol] 34.1 g/dL Normal 31.0-37.0 [facility] Comment on above: Performed By: #### M Cammie, TSH, CP, CDP #### [facility] [address] [place], [place] [phone] Circulation Manager: Pavan Davis MD #### FT3, T4 #### [address] [phone] Circulation Manager: Haim Wu MD MCV (RBC) [Entitic vol] 76.1 fL Low 80.0-100.0 [facility] Comment on above: Performed By: #### Fanny Bonds, TSH, CP, CDP #### [facility] [address] [place] [phone] Circulation Manager: Pavan Davis MD #### FT3, T4 #### [place] [address] Circulation Manager: Haim Wu MD Monocytes (Bld) [#/Vol] 0.40 10*3/uL Normal 0.00-1.00 [facility] Comment on above: Performed By: #### M Cammie, TSH, CP, CDP #### [facility] [address] [place] [phone] Circulation Manager: Pavan Davis MD #### FT3, T4 #### [place] [address] Circulation Manager: Haim Wu MD Monocytes/100 WBC (Bld) 7 % Normal 4-8 [facility] Comment on above: Performed By: #### M G, TSH, CP, CDP #### [facility] [address] [place] [address] Circulation Manager: Pavan Davis MD #### FT3, T4 #### [address] [place] [phone] Circulation Manager: Haim Wu MD Neutrophil (Seg) 63 % Normal 47-75 [facility] Comment on above: Performed By: #### M G, TSH, CP, CDP #### [facility] [address] [place], [place] [phone] Circulation Manager: Pavan Davis MD #### FT3, T4 #### [address] [place], [place] 8603708 Circulation Manager: Haim uW MD Platelet mean volume (Bld) [Entitic vol] 10.0 fL Normal 6.0-12.0 [facility] Comment on above: Performed By: #### M G, TSH, CP, CDP #### [facility] [address] [place], [place] [phone] Circulation Manager: Pavan Davis MD #### FT3, T4 #### [address] [phone] Circulation Manager: Haim Wu MD Platelets (Bld) [#/Vol] 258 10*3/uL Normal 140-450 [facility] Comment on above: Performed By: #### M G, TSH, CP, CDP #### [facility] [address] [place], [place] [phone] Circulation Manager: Pavan Davis MD #### FT3, T4 #### [facility] [address] [place] [address] Circulation Manager: Haim Wu MD RBC (Bld) [#/Vol] 4.82 10*6/uL Normal 4.00-5.20 [facility] Comment on above: Performed By: #### M G, TSH, CP, CDP #### [facility] [address] [place], [place] [phone] Circulation Manager: Pavan Davis MD #### FT3, T4 #### [address] [phone] Circulation Manager: Haim Wu MD WBC (Bld) [#/Vol] 6.0 10*3/uL Normal 3.5-11.0 [facility] Comment on above: Performed By: #### M G, TSH, CP, CDP #### [facility] [address] [place], [place] [phone] Circulation Manager: Pavan Davis MD #### FT3, T4 #### [address] [phone] Circulation Manager: Haim Wu MD T3, Freeon 05-07-2024 Free T3 [Mass/Vol] 3.00 pg/mL Normal 2.00-4.40 [facility] Comment on above: Performed By: #### M G, TSH, CP, CDP #### [facility] [address] [place], [place] 3588190 Circulation Manager: Pavan Davis MD #### FT3, T4 #### [address] [address] Circulation Manager: Haim Wu MD Thyroxine T4on 05-07-2024 T4 [Mass/Vol] 10.7 ug/dL Normal 4.5-11.7 [facility] Comment on above: Performed By: #### M G, TSH, CP, CDP #### [facility] [address] [place], [place] [phone] Circulation Manager: Pavan Davis MD #### FT3, T4 #### [address] [phone] Circulation Manager: Haim Wu MD CBC with Diffon 05-06-2024 Morphology Chad (Bld) [Interp] SLIGHT Normal [facility] Comment on above: Result Comment: MICR OCYTOSIS Performed By: #### M G, TSH, CP, CDP #### [facility] [address] [place] [address] Circulation Manager: Pavan Davis MD #### FT3, T4 #### [address] [place] [address] Circulation Manager: Haim Wu MD Abs. Basophil 0.02 k/uL Normal 0.00-0.20 [facility] Comment on above: Performed By: #### M G, TSH, CP, CDP #### [facility] [address] [place] [address] Circulation Manager: Pavan Davis MD #### FT3, T4 #### [address] [phone] Circulation Manager: Haim Wu MD Abs.Imm.Granulocyte 0.01 k/uL Normal 0.00-0.30 [facility] Comment on above: Performed By: #### M Cammie, TSH, CP, CDP #### [facility] [address] [place] [address] Circulation Manager: Pavan Davis MD #### FT3, T4 #### [place] [phone] Circulation Manager: Haim Wu MD Abs.Neutrophil (Seg) 3.12 k/uL Normal 2.5-7.0 [facility] Comment on above: Performed By: #### M G, TSH, CP, CDP #### [facility] [address] [place] [address] Circulation Manager: Pavan Davis MD #### FT3, T4 #### [address] [phone] Circulation Manager: Haim Wu MD Basophils/100 WBC (Bld) 0 % Normal 0-2 [facility] Comment on above: Performed By: #### M G, TSH, CP, CDP #### [facility] [address] [place], [place] [phone] Circulation Manager: Pavan Davis MD #### FT3, T4 #### [address] [phone] Circulation Manager: Haim Wu MD Eosinophils (Bld) [#/Vol] 0.11 10*3/uL Normal 0.00-0.40 [facility] Comment on above: Performed By: #### M G, TSH, CP, CDP #### [facility] [address] [place] [address] Circulation Manager: Pavan Davis MD #### FT3, T4 #### [place] [phone] Circulation Manager: Haim Wu MD Eosinophils/100 WBC (Bld) 2 % Normal 0-5 [facility] Comment on above: Performed By: #### M G, TSH, CP, CDP #### [facility] [address] [place] [address] Circulation Manager: Pavan Davis MD #### FT3, T4 #### [place] [phone] Circulation Manager: Haim Wu MD Immature granulocytes/100 WBC (Bld) 0 % Normal 0-5 [facility] Comment on above: Performed By: #### M G, TSH, CP, CDP #### [facility] [address] [place] [address] Circulation Manager: Pavan Daivs MD #### FT3, T4 #### [address] [phone] Circulation Manager: Haim Wu MD Lymphocytes (Bld) [#/Vol] 1.59 10*3/uL Normal 1.00-4.80 [facility] Comment on above: Performed By: #### M G, TSH, CP, CDP #### [facility] [address] [place], [place] [phone] Circulation Manager: Pavan Davis MD #### FT3, T4 #### [address] [address] Circulation Manager: Haim Wu MD Lymphocytes/100 WBC (Bld) 30 % Normal 15-40 [facility] Comment on above: Performed By: #### M G, TSH, CP, CDP #### [facility] [address] [place], [place] [phone] Circulation Manager: Pavan Davis MD #### FT3, T4 #### [address] [address] Circulation Manager: Haim Wu MD Monocytes (Bld) [#/Vol] 0.38 10*3/uL Normal 0.00-1.00 [facility] Comment on above: Performed By: #### M G, TSH, CP, CDP #### [facility] [address] [place], [place] 1433190 Circulation Manager: Pavan Davis MD #### FT3, T4 #### [address] [phone] Circulation Manager: Haim Wu MD Monocytes/100 WBC (Bld) 7 % Normal 4-8 [facility] Comment on above: Performed By: #### M G, TSH, CP, CDP #### [facility] [address] [place], [place] [phone] Circulation Manager: Pavan Davis MD #### FT3, T4 #### [address] [address] Circulation Manager: Haim Wu MD Neutrophil (Seg) 60 % Normal 47-75 [facility] Comment on above: Performed By: #### M G, TSH, CP, CDP #### [facility] [address] [place] [address] Circulation Manager: Pavan Davis MD #### FT3, T4 #### [address] [phone] Circulation Manager: Haim Wu MD Erythrocyte distribution width (RBC) [Ratio] 15.8 % High 12.1-15.2 [facility] Comment on above: Performed By: #### M G, TSH, CP, CDP #### [facility] [address] [place] [address] Circulation Manager: Pavan Davis MD #### FT3, T4 #### [address] [phone] Circulation Manager: Haim Wu MD Hematocrit (Bld) [Volume fraction] 31.6 % Low 36.0-46.0 [facility] Comment on above: Performed By: #### M G, TSH, CP, CDP #### [facility] [address] [place] [address] Circulation Manager: Pavan Davis MD #### FT3, T4 #### [address] [phone] Circulation Manager: Haim Wu MD Hemoglobin (Bld) [Mass/Vol] 10.4 g/dL Low 12.0-16.0 [facility] Comment on above: Performed By: #### M G, TSH, CP, CDP #### [facility] [address] [place] [address] Circulation Manager: Pavan Davis MD #### FT3, T4 #### [address] [id number] Circulation Manager: Haim Wu MD MCH (RBC) [Entitic mass] 23.5 pg Low 26.0-34.0 [facility] Comment on above: Performed By: #### M G, TSH, CP, CDP #### [facility] [address] [place], [place] [id number] Circulation Manager: Pavan Davis MD #### FT3, T4 #### [address] [id number] Circulation Manager: Haim Wu MD MCHC (RBC) [Mass/Vol] 32.9 g/dL Normal 31.0-37.0 [facility] Comment on above: Performed By: #### M G, TSH, CP, CDP #### [facility] [address] [place], [place] [id number] Circulation Manager: Pavan Davis MD #### FT3, T4 #### [address] [id number] Circulation Manager: Haim Wu MD MCV (RBC) [Entitic vol] 71.3 fL Low 80.0-100.0 [facility] Comment on above: Performed By: #### M G, TSH, CP, CDP #### [facility] [address] [place], [place] [id number] Circulation Manager: Pavan Davis MD #### FT3, T4 #### [address] [id number] Circulation Manager: Haim Wu MD Platelet mean volume (Bld) [Entitic vol] 9.4 fL Normal 6.0-12.0 [facility] Comment on above: Performed By: #### M G, TSH, CP, CDP #### [facility] [address] [place], [place] [id number] Circulation Manager: Pavan Davis MD #### FT3, T4 #### [address] [id number] Circulation Manager: Haim Wu MD Platelets (Bld) [#/Vol] 267 10*3/uL Normal 140-450 [facility] Comment on above: Performed By: #### M G, TSH, CP, CDP #### [facility] [address] [place], [place] [id number] Circulation Manager: Pavan Davis MD #### FT3, T4 #### [address] [address] Circulation Manager: Haim Wu MD RBC (Bld) [#/Vol] 4.43 10*6/uL Normal 4.00-5.20 [facility] Comment on above: Performed By: #### M G, TSH, CP, CDP #### [facility] [address] [place], [place] [phone] Circulation Manager: Pavan Davis MD #### FT3, T4 #### [address] [address] Circulation Manager: Hami Wu MD WBC (Bld) [#/Vol] 5.2 10*3/uL Normal 3.5-11.0 [facility] Comment on above: Performed By: #### M G, TSH, CP, CDP #### [facility] [address] [place], [place] [phone] Circulation Manager: Pavan Davis MD #### FT3, T4 #### [address] [address] Circulation Manager: Haim Wu MD Comp Metabolic Profon 2023 Albumin [Mass/Vol] 4.3 g/dL Normal 3.5-5.2 [facility] Comment on above: Performed By: #### M G, TSH, CP, CDP #### [facility] [address] [place], [place] [phone] Circulation Manager: Pavan Davis MD #### FT3, T4 #### [address] [id number] Circulation Manager: Haim Wu MD Alkaline Phos 63 U/L Normal 35-104 [facility] Comment on above: Performed By: #### M G, TSH, CP, CDP #### [facility] [address] [place], [place] [phone] Circulation Manager: Pavan Davis MD #### FT3, T4 #### [address] [id number] Circulation Manager: Haim Wu MD ALT [Catalytic activity/Vol] 44 U/L High 5-33 [facility] Comment on above: Performed By: #### M G, TSH, CP, CDP #### [facility] [address] [place], [place] [phone] Circulation Manager: Pavan Davis MD #### FT3, T4 #### [address] [phone] Circulation Manager: Haim Wu MD Anion gap [Moles/Vol] 11 mmol/L Normal 9-17 [facility] Comment on above: Performed By: #### M G, TSH, CP, CDP #### [facility] [address] [place], [place] [phone] Circulation Manager: Pavan Davis MD #### FT3, T4 #### [address] [address] Circulation Manager: Haim Wu MD AST [Catalytic activity/Vol] 40 U/L High <32 [facility] Comment on above: Performed By: #### M G, TSH, CP, CDP #### [facility] [address] [place], [place] [id number] Circulation Manager: Pavan Davis MD #### FT3, T4 #### [address] [address] Circulation Manager: Haim Wu MD Bilirubin [Mass/Vol] 0.3 mg/dL Normal 0.3-1.2 [facility] Comment on above: Performed By: #### M G, TSH, CP, CDP #### [facility] [address] [place], [place] [phone] Circulation Manager: Pavan Davis MD #### FT3, T4 #### [address] [id number] Circulation Manager: Haim Wu MD BUN/CRE Ratio 18 Normal 9-20 [facility] Comment on above: Performed By: #### M G, TSH, CP, CDP #### [facility] [address] [place], [place] [phone] Circulation Manager: Pavan Davis MD #### FT3, T4 #### [address] [id number] Circulation Manager: Haim Wu MD Calcium [Mass/Vol] 9.5 mg/dL Normal 8.6-10.4 [facility] Comment on above: Performed By: #### M G, TSH, CP, CDP #### [facility] [address] [place] [address] Circulation Manager: Pavan Davis MD #### FT3, T4 #### [address] [address] Circulation Manager: Haim Wu MD Chloride [Moles/Vol] 104 mmol/L Normal 98-107 [facility] Comment on above: Performed By: #### M G, TSH, CP, CDP #### [facility] [address] [place], [place] 1957190 Circulation Manager: Pavan Davis MD #### FT3, T4 #### [address] [address] Circulation Manager: Haim Wu MD CO2 [Moles/Vol] 24 mmol/L Normal 20-31 [facility] Comment on above: Performed By: #### M G, TSH, CP, CDP #### [facility] [address] [place], [place] [phone] Circulation Manager: Pavan Davis MD #### FT3, T4 #### [facility] [address] [place], [place] 1134108 Circulation Manager: Haim Wu MD Creatinine [Mass/Vol] 0.6 mg/dL Normal 0.5-0.9 [facility] Comment on above: Performed By: #### M G, TSH, CP, CDP #### [facility] [address] [place], [place] [phone] Circulation Manager: Pavan Davis MD #### FT3, T4 #### [address] [place], [place] 9048208 Circulation Manager: Haim Wu MD GFR/1.73 sq M.predicted among non-blacks MDRD (S/P/Bld) [Vol rate/Area] mL/min/{1.73_m2} Normal >60 [facility] Comment on above: Result Comment: These results are not intended for [...] following therapy that affects renal tubular secretion. Performed By: #### M G, TSH, CP, CDP #### [facility] [address] [place], [place] [phone] Circulation Manager: Pavan Davis MD #### FT3, T4 #### [facility] [address] [place], [place] 0058608 Circulation Manager: Haim Wu MD Glucose [Mass/Vol] 108 mg/dL High 70-99 [facility] Comment on above: Performed By: #### M G, TSH, CP, CDP #### [facility] [address] [place], [place] [phone] Circulation Manager: Pavan Davis MD #### FT3, T4 #### [address] [phone] Circulation Manager: Haim Wu MD Potassium [Moles/Vol] 3.6 mmol/L Low 3.7-5.3 [facility] Comment on above: Performed By: #### M G, TSH, CP, CDP #### [facility] [address] [place], [place] [phone] Circulation Manager: Pavan Davis MD #### FT3, T4 #### [address] [phone] Circulation Manager: Haim Wu MD Protein [Mass/Vol] 7.4 g/dL Normal 6.4-8.3 [facility] Comment on above: Performed By: #### M G, TSH, CP, CDP #### [facility] [address] [place], [place] [phone] Circulation Manager: Pavan Davis MD #### FT3, T4 #### [address] [phone] Circulation Manager: Haim Wu MD Sodium [Moles/Vol] 139 mmol/L Normal 135-144 [facility] Comment on above: Performed By: #### M G, TSH, CP, CDP #### [facility] [address] [place], [place] [phone] Circulation Manager: Pavan Davis MD #### FT3, T4 #### [address] [phone] Circulation Manager: Haim Wu MD Urea nitrogen [Mass/Vol] 11 mg/dL Normal 6-20 [facility] Comment on above: Performed By: #### M G, TSH, CP, CDP #### [facility] [address] [place] [address] Circulation Manager: Pavan Davis MD #### FT3, T4 #### [address] [id number] Circulation Manager: Haim Wu MD Magnesiumon 05-06-2024 Magnesium [Mass/Vol] 1.8 mg/dL Normal 1.6-2.6 [facility] Comment on above: Performed By: #### M G, TSH, CP, CDP #### [facility] [address] [place] [phone] Circulation Manager: Pavan Davis MD #### FT3, T4 #### [address] [phone] Circulation Manager: Haim Wu MD Thyroid Stim. Horm.on 2023 Thyroid Stim. Horm. 0.52 uIU/mL Normal 0.30-5.00 [facility] Comment on above: Performed By: #### M G, TSH, CP, CDP #### [facility] [address] [place] [address] Circulation Manager: Pavan Davis MD #### FT3, T4 #### [place] [phone] Circulation Manager: Haim Wu MD Laboratory - Chemistry and C hemistry - challengeon 03-03-2024 TSH Qn 0.84 m[IU]/L Invalid Interpretation Code [employer] No Panel Informationon 03-03 RM Invalid Interpretation Code [employer] Thyroid Stim. Horm.on 2023 Thyroid Stim. Horm. 0.84 uIU/mL Normal 0.30-5.00 [facility] Comment on above: Performed By: #### F AVILA #### [facility] [employer] [address] [place], [place] [phone] Circulation Manager: Haim Wu MD #### CP, CDP #### [facility] [address] [place] [address] Circulation Manager: Pavan Davis MD Thyroxine T4on 03-03-2024 T4 [Mass/Vol] 9.8 ug/dL Normal 4.5-11.7 [facility] Comment on above: Performed By: #### F AVILA #### [facility] [address] [place], [place] [phone] Circulation Manager: Haim Wu MD #### CP, CDP #### [facility] [address] [place] [address] Circulation Manager: Pavan Davis MD Testosterone, Freeon 023 Interpretation and review of laboratory results Abnormal [facility] Sex hormone binding globulin [Moles/Vol] 29 nmol/L Low 30 - 135 nmol/L [facility] Testosterone [Mass/Vol] 16 ng/dL Low 20 - 70 ng/dL [facility] Testosterone Free/Testosterone.tot al [Mass fraction] 3.1 pg/mL 1.3 - 9.2 pg/mL [facility] Comment on above: The concentration of free testosterone is derived from a mathematical expression based on the constant for the binding of testosterone to albumin and/or sex hormone binding globulin. [facility] Laboratory - Chemistry and C hemistry - challengeon 01-28-2023 TSH Qn 0.55 m[IU]/L Invalid Interpretation Code [facility] T4 [Mass/Vol] 9.9 ug/dL Invalid Interpretation Code [employer] No Panel Informationon 01-28 ls Invalid Interpretation Code [employer] TSHon 01-28-2023 [facility] US ABDOMEN LIMITED Specify o rgan? LIVER, PANCREAS, GALLBLADDERon 10-10-2022 Liver shows increase d echogenicity suggesting hepatic steatosis without focal lesion. Prior cholecystectomy [facility] EXAMINATION: RIGHT UPPER QUADRANT ULTRASOUND 10/10/2022 10:35 [...] No evidence of right upper quadrant ascites. [facility] Mario Stewart DO - 10/10/2022 EXAMINATION: RIGHT UPPER QUADRANT ULTRASOUND [...] hepatic steatosis without focal lesion. Prior cholecystectomy [employer] Phone: Radiology Study observation (narrative) [employer] Phone: US ABDOMEN LIMITED Specify o rgan? LIVER, PANCREAS, GALLBLADDEROrdered By: Mario Stewart on 10-10-2022 [employer] Phone: Laboratory - Microbiology an d Antimicrobial susceptibilityon 08-28-2022 HPV 16+18+31+33+35+45+51+ 52+56 DNA Probe Ql (Cvx) HPV-DNA Test Invalid Interpretation Code [facility] US NON OB TRANSVAGINALon 1. Largest right ovarian follicle measures 8 mm. Largest left ovarian follicle measures 6 mm. 2. Fibroid uterus with largest fibroid at the posterior uterine body measuring 3 cm. 3. Endometrial stripe thickness measuring 1.3 cm, within normal limits. RECOMMENDATIONS: Multiple ovarian cysts. Most severe: Subcentimeter right ovarian follicle, normal finding. No follow-up imaging is recommended. Reference: Radiology 2019 Nov;293(2):359-371 [facility] EXAMINATION: PELVIC ULTRASOUND 03/14/2022 TECHNIQUE: Transvaginal pelvic ultrasound was performed. 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 Endometrial stripe: 1.3 cm. Right Ovary:4.5 x 2.6 x 3.7 cm. Left Ovary: 4.0 x 3.5 x 4.0 cm. Ultrasound Findings: Uterus: Fibroid uterus. Hypoechoic fibroid with posterior acoustic shadowing at the posterior uterine body on the left measuring 1.8 x 1.7 x 1.8 cm. Posterior uterine body fibroid measuring 3.0 x 2.8 x 3.0 cm. Endometrial stripe: Endometrial stripe is within normal limits. Right Ovary: Right ovary is within normal limits. Largest right ovarian follicle measures 8 x 7 x 5 mm. Left Ovary: Left ovary is within normal limits. Largest left ovarian follicle measures 5 x 5 x 6 mm. Color flow projects over the bilateral ovarian parenchyma. Free Fluid: No evidence of free fluid. [facility] Connor Carcamo MD - 03/14/2022 EXAMINATION: PELVIC ULTRASOUND 03/14/2022 TECHNIQUE: Transvaginal pelvic ultrasound was performed. 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 Endometrial stripe: 1.3 cm. Right Ovary:4.5 x 2.6 x 3.7 cm. Left Ovary: 4.0 x 3.5 x 4.0 cm. Ultrasound Findings: Uterus: Fibroid uterus. Hypoechoic fibroid with posterior acoustic shadowing at the posterior uterine body on the left measuring 1.8 x 1.7 x 1.8 cm. Posterior uterine body fibroid measuring 3.0 x 2.8 x 3.0 cm. Endometrial stripe: Endometrial stripe is within normal limits. Right Ovary: Right ovary is within normal limits. Largest right ovarian follicle measures 8 x 7 x 5 mm. Left Ovary: Left ovary is within normal limits. Largest left ovarian follicle measures 5 x 5 x 6 mm. Color flow projects over the bilateral ovarian parenchyma. Free Fluid: No evidence of free fluid. IMPRESSION: 1. Largest right ovarian follicle measures 8 mm. Largest left ovarian follicle measures 6 mm. 2. Fibroid uterus with largest fibroid at the posterior uterine body measuring 3 cm. 3. Endometrial stripe thickness measuring 1.3 cm, within normal limits. RECOMMENDATIONS: Multiple ovarian cysts. Most severe: Subcentimeter right ovarian follicle, normal finding. No follow-up imaging is recommended. Reference: Radiology 2019 Nov;293(2):359-371 [employer] Work Phone: Radiology Study observation (narrative) [facility] Work Phone: US NON OB TRANSVAGINALOrdere d By: Connor Carlos Alberto on 03-14-2022 [facility] Work Phone: Laboratory - Chemistry and C hemistry - challengeon 01-19-2022 T4 [Mass/Vol] 10.3 ug/dL Invalid Interpretation Code [employer] TSH Qn 1.01 m[IU]/L Invalid Interpretation Code [employer] No Panel Informationon 01-19 RM Invalid Interpretation Code [employer] TSHon 01-19-2022 [employer] Progesteroneon 12-30-2021 Progesterone 41.86 ng/[facility] Comment on above: FEMALE (healthy): Follicular phase 0.06-0.89 Ovulation phase 0.12-12.00 Luteal phase 1.83-23.90 Postmenopausal <0.13 [employer] US ABDOMEN LIMITED Specify o rgan? LIVER, GALLBLADDER, PANCREASon 12-14-2021 Likely diffuse hepat ic fatty infiltration. [facility] EXAMINATION: RIGHT UPPER QUADRANT ULTRASOUND 12/14/2021 8:13 [...] No evidence of right upper quadrant ascites. [facility] Zachary Garduno MD - 12/14/2021 EXAMINATION: RIGHT [...] ascites. IMPRESSION: Likely diffuse hepatic fatty infiltration. [facility] Phone: Radiology Study observation (narrative) [facility] Phone: US ABDOMEN LIMITED Specify o rgan? LIVER, GALLBLADDER, PANCREASOrdered By: Zachary Garduno on 12-14-2021 [facility] Phone: CBC Auto Differentialon 10-14 Absolute Eos # 0.18 [email or web address] [facility] th Absolute Immature Granulocyte 0.03 [employer] Absolute Lymph # 1.98 [facility] alth [employer] [place] # 0.40 [facility] lth Basophils (Bld) [#/Vol] 0.06 10*3/uL [facility] [employer] Basophils/100 WBC (Bld) 1 % 0 - 2 % [facility] [employer] Differential Type NOT REPORTED [facility] [employer] Eosinophils/100 WBC (Bld) 3 % 1 - 4 % [facility] [employer] Hematocrit (Bld) [Volume fraction] 37.7 % 36.3 - 47.1 % [facility] [employer] Hemoglobin.gastrointe stinal spec 1 Ql (Stl) 12.0 g/dL 11.9 - 15.1 g/dL [facility] [employer] Immature granulocytes/100 WBC (Bld) 1 % High 0 [facility] [employer] Interpretation and review of laboratory results Abnormal [facility] [employer] Lymphocytes/100 WBC (Bld) 31 % 24 - 43 % [facility] [employer] MCH (RBC) [Entitic mass] 25.6 pg 25.2 - 33.5 pg [facility] [employer] MCHC (RBC) [Mass/Vol] 31.8 g/dL 28.4 - 34.8 g/dL [facility] [employer] MCV (RBC) [Entitic vol] 80.6 fL Low 82.6 - 102.9 fL [facility] [employer] Monocytes/100 WBC (Bld) 6 % 3 - 12 % [facility] [employer] NRBC Automated 0.0 0.0 per 100 WBC [facility] [employer] Platelet distribution width (Bld) [Ratio] 16.0 % High 11.8 - 14.4 % [facility] [employer] Platelet Estimate NOT REPORTED [facility] [employer] Platelet mean volume (Bld) [Entitic vol] 9.7 fL 8.1 - 13.5 fL [facility] [employer] Platelets (Bld) [#/Vol] 256 10*3/uL [facility] [employer] RBC (Bld) [#/Vol] 4.68 10*6/uL 3.95 - 5.1 1 m/uL [facility] [employer] RBC (Bld) [#/Vol] NOT REPORTED [facility] [employer] Segmented neutrophils/100 WBC (Bld) 58 % 36 - 65 % [facility] [employer] [facility] [#/Vol] 6.5 10*3/uL [facility] [employer] WBC (Bld) [#/Vol] NOT REPORTED [facility] [employer] Comprehensive Metabolic Pane per 10-26-2021 Albumin [Mass/Vol] 4.3 g/dL 3.5 - 5.2 g/dL [facility] Albumin/Globulin [Mass ratio] 1.4 {ratio} [facility] ALP (Bld) [Catalytic activity/Vol] 42 U/L 35 - 104 U/L [facility] ALT [Catalytic activity/Vol] 55 U/L High 5 - 33 U/L [facility] Anion gap [Moles/Vol] 17 mmol/L 9 - 17 mmol/L [facility] AST [Catalytic activity/Vol] 47 U/L High <32 [facility] Bilirubin [Mass/Vol] 0.27 mg/dL Low 0.3 - 1 .2 mg/dL [facility] Calcium [Mass/Vol] 9.9 mg/dL 8.6 - 10. 4 mg/dL [facility] Chloride [Moles/Vol] 98 mmol/L 98 - 10 7 mmol/L [facility] CO2 [Moles/Vol] 23 mmol/L 20 - 31 mmol/L [facility] Creatinine [Mass/Vol] 0.79 mg/dL 0.50 - 0.90 mg/dL [facility] Free PSA/Total PSA [Mass fraction] 7.3 g/dL 6.4 - 8.3 g/dL [facility] GFR >60 >60 mL/min [facility] GFR Non- >60 >60 mL/min [facility] Glucose [Mass/Vol] 96 mg/dL 70 - 99 mg/dL [facility] Interpretation and review of laboratory results Abnormal [facility] Potassium [Moles/Vol] 3.5 mmol/L Low 3.7 - 5.3 mmol/L [facility] Sodium [Moles/Vol] 138 mmol/L 135 - 144 mmol/L [facility] Urea nitrogen (BldV) [Mass/Vol] 11 mg/dL 6 - 20 mg/dL [facility] Urea nitrogen/Creatinine (Bld) [Mass ratio] 14 [facility] Laboratory - Chemistry and C hemistry - challengeon 10-26-2021 GFR/1.73 sq M.predicted MDRD (S/P/Bld) [Vol rate/Area] [facility] Comment on above: Average GFR for 30-3 9 years old: 107 mL/min/1.73sq m Chronic Kidney Disease: <60 mL/min/1.73sq m Kidney failure: <15 mL/min/1.73sq m eGFR calculated using average adult body mass. Additional eGFR calculator available at: http://www.SDI/multiple_crcl_2012.htm Stage 1: Some kidney damage normal GFR Stage 2: Mild kidney damage GFR 60-89 Stage 3: Moderate kidney damage GFR 30-59 Stage 4: Severe kidney damage GFR 15-29 Stage 5: Severe kidney damage GFR <15 ESRD - chronic treatment by dialysis or transplant COVID-19Ordered By: Sylvain ceja on 07-12-2021 SARS-CoV-2 (COVID-19) RNA ERICA+probe Ql (Unsp spec) [facility] Phone: SARS-CoV-2 (COVID-19) RNA ERICA+probe Ql (Unsp spec) Not detected Not Detected [facility] Phone: Comment on above: The specimen is NEGATIVE for SARS-CoV-2, the novel coronavirus associated with COVID-19. A negative result does not rule out COVID-19. [employer] SARS-CoV-2 for use on the [employer]/8800 Systems is a real-time RT-PCR test intended for the qualitative detection of nucleic acids from SARS-CoV-2 in clinician-collected nasal, nasopharyngeal, and oropharyngeal swab specimens from individuals who meet COVID-19 clinical and/or epidemiological criteria. [employer] SARS-CoV-2 is for use only under Emergency Use Authorization (EUA) in laboratories certified under Clinical Laboratory Improvement Amendments of 1988 (CLIA), 42 U.S.C. 263a, that meet requirements to perform high or moderate complexity tests. An individual without symptoms of COVID-19 and who is not shedding SARS-CoV-2 virus would expect to have a negative (not detected) result in this assay. Fact sheet for Healthcare Providers: https://www.fda.gov/media/687993/download Fact sheet for Patients: https://www.fda.gov/media/346690/download METHODOLOGY: RT-PCR Source .NASOPHARYNGEAL SWAB [employer] Phone: [facility] Phone: CBC With Auto DifferentialOr dered By: Lizbet Lr on 07-11-2021 Absolute Eos # 0.10 [email or web address] [facility] Work Phone: Absolute Immature Granulocyte 0.03 [employer] Work Phone: Absolute Lymph # 1.48 [email or web address] [facility] [employer] Work Phone: [facility] [place] # 0.36 [facility] Work Phone: Basophils (Bld) [#/Vol] 0.04 10*3/uL [employer] Work Phone: Basophils/100 WBC (Bld) 1 % 0 - 2 % [employer] Work Phone: Differential Type NOT REPORTED [facility] Phone: Eosinophils/100 WBC (Bld) 2 % 1 - 4 % [facility] Phone: Hematocrit (Bld) [Volume fraction] 36.2 % Low 36.3 - 47.1 % [employer] Work Phone: Hemoglobin.gastrointe stinal spec 1 Ql (Stl) 11.5 g/dL Low 11.9 - 15.1 g/dL [facility] Phone: Immature granulocytes/100 WBC (Bld) 1 % High 0 [facility] Phone: Interpretation and review of laboratory results Abnormal [facility] Phone: Lymphocytes/100 WBC (Bld) 29 % 24 - 43 % [employer] Work Phone: MCH (RBC) [Entitic mass] 25.4 pg 25.2 - 33.5 pg [employer] Work Phone: MCHC (RBC) [Mass/Vol] 31.8 g/dL 28.4 - 34.8 g/dL [facility] Phone: MCV (RBC) [Entitic vol] 79.9 fL Low 82.6 - 102.9 fL [facility] Phone: Monocytes/100 WBC (Bld) 7 % 3 - 12 % [employer] Phone: NRBC Automated 0.0 0.0 per 100 WBC [facility] Phone: Platelet distribution width (Bld) [Ratio] 13.4 % 11.8 - 14.4 % [facility] Phone: Platelet Estimate NOT REPORTED [facility] Phone: Platelet mean volume (Bld) [Entitic vol] 10.3 fL 8.1 - 13.5 fL [facility] Phone: Platelets (Bld) [#/Vol] 280 10*3/uL [facility] Phone: RBC (Bld) [#/Vol] 4.53 10*6/uL 3.95 - 5.1 1 m/uL [facility] Phone: RBC (Bld) [#/Vol] NOT REPORTED [facility] Phone: Segmented neutrophils/100 WBC (Bld) 60 % 36 - 65 % [facility] Phone: Segs Absolute 3[employer]14 [employer] Work Phone: WBC (Bld) [#/Vol] 5.2 10*3/uL [employer] Phone: WBC (Bld) [#/Vol] NOT REPORTED [employer] Phone: [employer] Work Phone: Comprehensive Metabolic Pane lOrdered By: Lizbet Lr on 07-11-2021 Albumin [Mass/Vol] 4.8 g/dL 3.5 - 5.2 g/dL [employer] Phone: Albumin/Globulin [Mass ratio] 1.5 {ratio} [employer] Phone: ALP (Bld) [Catalytic activity/Vol] 56 U/L 35 - 104 U/L [employer] Phone: ALT [Catalytic activity/Vol] 49 U/L High 5 - 33 U/L [employer] Phone: Anion gap [Moles/Vol] 16 mmol/L 9 - 17 mmol/L [employer] Phone: AST [Catalytic activity/Vol] 44 U/L High <32 [employer] Phone: Bilirubin [Mass/Vol] 0.44 mg/dL 0.3 - 1 .2 mg/dL [employer] Phone: Calcium [Mass/Vol] 9.7 mg/dL 8.6 - 10. 4 mg/dL [employer] Phone: Chloride [Moles/Vol] 101 mmol/L 98 - 10 7 mmol/L [employer] Phone: CO2 [Moles/Vol] 23 mmol/L 20 - 31 mmol/L [employer] Phone: Creatinine [Mass/Vol] 0.66 mg/dL 0.50 - 0.90 mg/dL [employer] Phone: Free PSA/Total PSA [Mass fraction] 8.1 g/dL 6.4 - 8.3 g/dL [employer] Phone: GFR >60 >60 mL/min [employer] Phone: GFR Non- >60 >60 mL/min [facility]: Glucose [Mass/Vol] 109 mg/dL High 70 - 99 mg/dL [facility] [employer] Work Phone: Interpretation and review of laboratory results Abnormal [facility] Phone: Potassium [Moles/Vol] 3.8 mmol/L 3.7 - 5.3 mmol/L [employer] Phone: Sodium [Moles/Vol] 140 mmol/L 135 - 144 mmol/L [employer] Phone: Urea nitrogen (BldV) [Mass/Vol] 13 mg/dL 6 - 20 mg/dL [employer] Phone: Urea nitrogen/Creatinine (Bld) [Mass ratio] 20 [facility] Phone: [employer] Phone: Laboratory - Chemistry and C hemistry - challengeOrdered By: Lizbet Lr on 07-11-2021 GFR/1.73 sq M.predicted MDRD (S/P/Bld) [Vol rate/Area] [employer] Phone: Comment on above: Average GFR for 30-3 9 years old: 107 mL/min/1.73sq m Chronic Kidney Disease: <60 mL/min/1.73sq m Kidney failure: <15 mL/min/1.73sq m eGFR calculated using average adult body mass. Additional eGFR calculator available at: http://www.SDI/multiple_crcl_2012.htm Stage 1: Some kidney damage normal GFR Stage 2: Mild kidney damage GFR 60-89 Stage 3: Moderate kidney damage GFR 30-59 Stage 4: Severe kidney damage GFR 15-29 Stage 5: Severe kidney damage GFR <15 ESRD - chronic treatment by dialysis or transplant hCG, Quantitative, Ordered By: Jesica Cantor on 05-01-2021 hCG Quant <1 <5 IU/L [facility] Phone: Comment on above: Non-preg premeno <=5 Postmeno <=8 Male <=3 If HCG results do not concur with clinical observations, additional testing to confirm results is recommended. Elevated results not associated with may be found in patients with other diseases such as tumors of the germ cells (testis, ovaries, etc.), bladder, pancreas, stomach, lungs, and liver. [employer] Phone: Otheron 01-11-2021 RM Invalid Interpretation Code [facility] T4on 01-11-2021 Interpretation and review of laboratory results Abnormal [employer] Phone: T4, Total 11 ug/dL High 4.5 - 10.9 ug/dL [facility] [employer] Work Phone: Thyroidon 01-11-2021 TSH Qn 0.60 m[IU]/L Invalid Interpretation Code [facility] Phone: T4 [Mass/Vol] 11.0 H Invalid Interpretation Code [facility] [employer] Hepatic Function Panelon Albumin [Mass/Vol] 4.9 g/dL 3.5 - 5.2 g/dL [place] Albumin/Globulin [Mass ratio] 1.9 {ratio} [place] ALP [Catalytic activity/Vol] 48 U/L 35 - 104 U/L [place] ALT [Catalytic activity/Vol] 66 U/L High 5 - 33 U/L [place] AST [Catalytic activity/Vol] 44 U/L High <32 [place] Bilirubin Ql (U) 0.40 mg/dL 0.3 - 1.2 mg/dL [place] Bilirubin, Indirect CANNOT BE CALCULATED 0 - 1 mg/dL [place] Bilirubin.direct [Mass/Vol] mg/dL <0.31 mg/dL [place] Globulin (S) [Mass/Vol] NOT REPORTED 1.5 - 3.8 g/dL [place] Interpretation and review of laboratory results Abnormal [place] Protein [Mass/Vol] 7.5 g/dL 6.4 - 8.3 g/dL [place] Hepatitis Panel, Acuteon HAV IgM IA Qn (S) NONREACTIVE NONREACTIVE [place] Hep B Core Ab, IgM NONREACTIVE NONREACTIVE [place] Hepatitis B Surface Ag NONREACTIVE NONREACTIVE [place] Hepatitis C Ab NONREACTIVE NONREACTIVE [place] Comment on above: The hepatitis C procedure used in our [...] recommended by ordering HCV RNA by PCR. HCG Qualitative, Serumon hCG Qual Negative NEGATIVE [place] Comment on above: Specimens with hCG l evels near the threshold of the test (25 mIU/mL) may give a negative or indeterminate result. In such cases, another test should be performed with a new specimen in 48-72 hours. If early is suspected clinically in this setting, correlation with quantitative serum b-hCG level is suggested. [facility] [employer] has confirmed the use of plasma for this test. This has not been cleared or approved by the U.S. Food and Drug Administration. The FDA has determined that such clearance is not necessary. CBC Auto Differentialon 08-14 Basophils (Bld) [#/Vol] 0.04 10*3/uL [place] Basophils/100 WBC (Bld) 1 % 0 - 2 % [place] Differential Type NOT REPORTED [place] Eosinophils (Bld) [#/Vol] 0.07 10*3/uL [place] Eosinophils/100 WBC (Bld) 1 % 1 - 4 % [place] Erythrocyte distribution width (RBC) [Ratio] 12.7 % 11.8 - 14.4 % [place] Hematocrit (Bld) [Volume fraction] 39.3 % 36.3 - 47.1 % [place] Hemoglobin (Bld) [Mass/Vol] 13.1 g/dL 11.9 - 15.1 g/dL [place] Immature granulocytes (Bld) [#/Vol] 1 % High 0 [place] Immature granulocytes (Bld) [#/Vol] 0.03 10*3/uL [place] Interpretation and review of laboratory results Abnormal [place] Lymphocytes (Bld) [#/Vol] 1.89 10*3/uL [place] Lymphocytes/100 WBC (Bld) 30 % 24 - 43 % [place] MCH (RBC) [Entitic mass] 27.0 pg 25.2 - 33.5 pg [place] MCHC (RBC) [Mass/Vol] 33.3 g/dL 28.4 - 34.8 g/dL [place] MCV (RBC) [Entitic vol] 81.0 fL Low 82.6 - 102.9 fL [place] Monocytes (Bld) [#/Vol] 0.38 10*3/uL [place] Monocytes/100 WBC (Bld) 6 % 3 - 12 % [place] Platelet mean volume (Bld) [Entitic vol] 9.9 fL 8.1 - 13.5 fL [place] Platelets (Bld) [#/Vol] NOT REPORTED [place] Platelets (Bld) [#/Vol] 258 10*3/uL [place] RBC (Bld) [#/Vol] 4.85 10*6/uL 3.95 - 5.1 1 m/uL [place] RBC morphology finding Nom (Bld) NOT REPORTED [place] Segmented neutrophils/100 WBC (Bld) 61 % 36 - 65 % [place] Segs Absolute 3.88 [place] WBC (Bld) [#/Vol] 6.3 10*3/uL [place] WBC (Bld) [#/Vol] 0.0 10*3/uL 0.0 per 10 0 WBC [place] WBC Morphology NOT REPORTED [place] Comprehensive Metabolic Pane per 08-30-2020 Albumin [Mass/Vol] 5 g/dL 3.5 - 5.2 g/dL [place] Albumin/Globulin [Mass ratio] 1.6 {ratio} [place] ALP [Catalytic activity/Vol] 51 U/L 35 - 104 U/L [place] ALT [Catalytic activity/Vol] 80 U/L High 5 - 33 U/L [place] Anion gap [Moles/Vol] 12 mmol/L 9 - 17 mmol/L [place] AST [Catalytic activity/Vol] 51 U/L High <32 [place] Bilirubin Ql (U) 0.62 mg/dL 0.3 - 1.2 mg/dL [place] Bun/Cre Ratio 18 [place], [place] Calcium [Mass/Vol] 10.2 mg/dL 8.6 - 10. 4 mg/dL [place] Chloride [Moles/Vol] 97 mmol/L Low 98 - 10 7 mmol/L [place] CO2 [Moles/Vol] 28 mmol/L 20 - 31 mmol/L [place] Creatinine [Mass/Vol] 0.68 mg/dL 0.5 - 0.9 mg/dL [place] GFR >60 >60 mL/min [place] GFR Non- >60 >60 mL/min [place] Glucose [Mass/Vol] 96 mg/dL 70 - 99 mg/dL [place] Interpretation and review of laboratory results Abnormal [place] Potassium [Moles/Vol] 3.2 mmol/L Low 3.7 - 5.3 mmol/L [place] Protein [Mass/Vol] 8.1 g/dL 6.4 - 8.3 g/dL [place] Sodium [Moles/Vol] 137 mmol/L 135 - 144 mmol/L [place] Urea nitrogen [Mass/Vol] 12 mg/dL 6 - 20 mg/dL [place] Insulin, totalon 08-30-2020 INR Coag (Bld) [Relative time] [place] Comment on above: Fastin.6-24.9 30 min: 20-112 60 min: 29-88 90 min: 26-84 120 min: 22-79 Insulin 18.5 mU/L [place] Insulin Comment .BLOOD [facility] [place] Ironon 08-30-2020 Iron [Mass/Vol] 53 ug/dL 37 - 145 ug/dL [place] Magnesiumon 08-30-2020 Magnesium [Mass/Vol] 2.0 mg/dL 1.6 - 2 .6 mg/dL [place] Metabolic Panelon 08-30-2020 GFR/1.73 sq M predicted among non-blacks MDRD (S/P/Bld) [Vol rate/Area] [place] Comment on above: Average GFR for 30-3 9 years old: 107 mL/min/1.73sq m Chronic Kidney Disease: <60 mL/min/1.73sq m Kidney failure: <15 mL/min/1.73sq m eGFR calculated using average adult body mass. Additional eGFR calculator available at: http://www.SDI/multiple_crcl_2012.htm Stage 1: Some kidney damage normal GFR Stage 2: Mild kidney damage GFR 60-89 Stage 3: Moderate kidney damage GFR 30-59 Stage 4: Severe kidney damage GFR 15-29 Stage 5: Severe kidney damage GFR <15 ESRD - chronic treatment by dialysis or transplant T4, Freeon 08-30-2020 Thyroxine, Free 1.67 ng/dL 0.93 - 1.7 ng/dL [place] TSH without Reflexon 020 TSH Qn 1.28 m[IU]/L [place], [place] Vitamin D 25 Hydroxyon 08-30 Vit D, 25-Hydroxy 54.6 ng/mL 30 - 100 ng/mL [place] Comment on above: Reference Range: Vitamin D status Range Deficiency <20 ng/mL Mild Deficiency 20-30 ng/mL Sufficiency 30-100 ng/mL Toxicity >100 ng/mL COVID-19on 08-27-2020 SARS-CoV-2 Not Detected Not Detected [place] Comment on above: The specimen is NEGATIVE for SARS-CoV-2, the novel coronavirus associated with COVID-19. A negative result does not rule out COVID-19. This test has been authorized by the FDA under an Emergency Use Authorization (EUA) for use by authorized laboratories. [employer] SARS-CoV-2 Reagents for [employer] are designed to detect the virus that causes COVID-19 in patients with signs and symptoms of infection who are suspected of COVID-19. An individual without symptoms of COVID-19 and who is not shedding SARS-CoV-2 virus would expect to have a negative (not detected) result in this assay. Fact sheet for Healthcare Providers: https://www.fda.gov/media/815309/download Fact sheet for Patients: https://www.[facility].gov/media/959910/download METHODOLOGY: RT-PCR SARS-CoV-2 [place] SARS-CoV-2, Rapid [place] Source .NASOPHARYNGEAL SWAB [place] CBC Auto Differentialon 09-0 Basophils (Bld) [#/Vol] 0.00 10*3/uL [place] Basophils/100 WBC (Bld) 0 % 0 - 2 % [place] Differential Type YES [place] Eosinophils (Bld) [#/Vol] 0.10 10*3/uL [place] Eosinophils/100 WBC (Bld) 1 % 0 - 5 % [place] Erythrocyte distribution width (RBC) [Ratio] 13.9 % 12.1 - 15.2 % [place] Hematocrit (Bld) [Volume fraction] 38.4 % 36 - 46 % [place] Hemoglobin (Bld) [Mass/Vol] 13.2 g/dL 12 - 16 g/dL [place] Lymphocytes (Bld) [#/Vol] 1.60 10*3/uL [place] Lymphocytes/100 WBC (Bld) 22 % 15 - 40 % [place] MCH (RBC) [Entitic mass] 27.7 pg 26 - 34 pg [place] MCHC (RBC) [Mass/Vol] 34.3 g/dL 31 - 37 g/dL [place] MCV (RBC) [Entitic vol] 80.8 fL 80 - 100 fL [place] Monocytes (Bld) [#/Vol] 0.40 10*3/uL [place] Monocytes/100 WBC (Bld) 6 % 4 - 8 % [place] Platelet mean volume (Bld) [Entitic vol] NOT REPORTED 6 - 12 fL [place] Platelets (Bld) [#/Vol] 254 10*3/uL [place] Platelets (Bld) [#/Vol] NOT REPORTED [place] RBC (Bld) [#/Vol] 4.75 10*6/uL 4 - 5.2 m/uL [place] RBC morphology finding Nom (Bld) NOT REPORTED [place] Segmented neutrophils/100 WBC (Bld) 71 % 47 - 75 % [place] Segs Absolute 5.20 [place] WBC (Bld) [#/Vol] NOT REPORTED per 100 WBC [place] WBC (Bld) [#/Vol] 7.3 10*3/uL [place] WBC Morphology NOT REPORTED [place] Comprehensive Metabolic Pane l w/ Reflex to MGon 06-17-2020 Albumin [Mass/Vol] 5.1 g/dL 3.5 - 5.2 g/dL [place] Albumin/Globulin [Mass ratio] NOT REPORTED [place] ALP [Catalytic activity/Vol] 52 U/L 35 - 104 U/L [place] ALT [Catalytic activity/Vol] 96 U/L High 5 - 33 U/L [place] Anion gap [Moles/Vol] 13 mmol/L 9 - 17 mmol/L [place] AST [Catalytic activity/Vol] 66 U/L High <32 [place] Bilirubin Ql (U) 0.57 mg/dL 0.3 - 1.2 mg/dL [place] Bun/Cre Ratio 19 [place], [place] Calcium [Mass/Vol] 10.3 mg/dL 8.6 - 10. 4 mg/dL [place] Chloride [Moles/Vol] 102 mmol/L 98 - 10 7 mmol/L [place] CO2 [Moles/Vol] 24 mmol/L 20 - 31 mmol/L [place] Creatinine [Mass/Vol] 0.68 mg/dL 0.5 - 0.9 mg/dL [place] GFR >60 >60 mL/min [place] GFR Non- >60 >60 mL/min [place] GFR/1.73 sq M predicted among non-blacks MDRD (S/P/Bld) [Vol rate/Area] [place] Comment on above: Average GFR for 30-3 9 years old: 107 mL/min/1.73sq m Chronic Kidney Disease: <60 mL/min/1.73sq m Kidney failure: <15 mL/min/1.73sq m eGFR calculated using average adult body mass. Additional eGFR calculator available at: http://www.SDI/multiple_crcl_2012.htm GFR/1.73 sq M predicted among non-blacks MDRD (S/P/Bld) [Vol rate/Area] NOT REPORTED [place] Glucose [Mass/Vol] 113 mg/dL High 70 - 99 mg/dL [place] Interpretation and review of laboratory results Abnormal [place] Potassium [Moles/Vol] 3.6 mmol/L Low 3.7 - 5.3 mmol/L [place] Protein [Mass/Vol] 9.7 g/dL High 6.4 - 8.3 g/dL [place] Sodium [Moles/Vol] 139 mmol/L 135 - 144 mmol/L [place] Urea nitrogen [Mass/Vol] 13 mg/dL 6 - 20 mg/dL [place] HCG Qualitative, Serumon hCG Qual Negative NEGATIVE [place] Comment on above: Specimens with hCG l evels near the threshold of the test (25 mIU/mL) may give a negative or indeterminate result. In such cases, another test should be performed with a new specimen in 48-72 hours. If early is suspected clinically in this setting, correlation with quantitative serum b-hCG level is suggested. [facility] [employer] has confirmed the use of plasma for this test. This has not been cleared or approved by the U.S. Food and Drug Administration. The FDA has determined that such clearance is not necessary. Lipaseon 06-17-2020 Lipase [Catalytic activity/Vol] 44 U/L 13 - 60 U/L [place] Microscopic Urinalysison Amorphous, UA NOT REPORTED None [place], [place] Bacteria, UA RARE Abnormal None [place], [place] Casts UA NOT REPORTED /LPF [place], [place] Crystals, UA NOT REPORTED None /HPF [place] Epithelial Cells UA 2 TO 5 /HPF [place] Interpretation and review of laboratory results Abnormal [place] Mucus, UA NOT REPORTED None [place], [place] Other Observations UA NOT REPORTED NOT REQ. [place] RBC (U) [#/Vol] 0 TO 2 [place] Renal Epithelial, UA NOT REPORTED 0 /HPF [place] Trichomonas, UA NOT REPORTED None [facility] [place] WBC, UA 0 TO 2 0 /HPF [place] Yeast, UA NOT REPORTED None [place], [place] - [place] Otheron 06-17-2020 Immature granulocytes (Bld) [#/Vol] NOT REPORTED [place] Urinalysis, reflex to micros copicon 06-17-2020 Bilirubin Urine Negative NEGATIVE [place] Color, UA YELLOW YELLOW [place] Glucose, Ur Negative NEGATIVE [place] Interpretation and review of laboratory results Abnormal [place] Ketones Ql (U) Negative NEGATIVE [place] Leukocyte esterase Test strip Ql (U) Negative NEGATIVE [place] Nitrite, Urine Negative NEGATIVE [place] pH, UA 5.0 [place] Protein (U) [Mass/Vol] Negative NEGATIVE [place] Specific [place], UA 1.010 [place], [place] Turbidity UA CLEAR CLEAR [place], [place] Urinalysis Comments [place] Urine Hgb TRACE Abnormal NEGATIVE [place] Urobilinogen, Urine Normal Normal [place] Progesteroneon 04-25-2020 Progesterone 9.41 ng/mL [place] Comment on above: FEMALE (healthy): Follicular phase 0.06-0.89 Ovulation phase 0.12-12.00 Luteal phase 1.83-23.90 Postmenopausal <0.13 US NON OB TRANSVAGINALon 1. No acute intrapelvic abnormality. 2. Right ovarian follicles as described. No obvious left ovarian follicles on provided images. 3. Uterine fibroid measures up to 2.0 cm. [place] EXAMINATION: PELVIC ULTRASOUND 04/18/2020 TECHNIQUE: Transvaginal pelvic ultrasound was performed. Color Doppler evaluation was performed. COMPARISON: 11/15/2018 HISTORY: ORDERING SYSTEM PROVIDED HISTORY: Infertility, female TECHNOLOGIST PROVIDED HISTORY: follicle check Please schedule on day 14 of cycle, 04/18/2020. FINDINGS: Measurements: Uterus: 7.0 x 5.5 x 4.1 cm Endometrial stripe: 13 mm Right Ovary: 4.2 x 3.9 x 3.7 cm Left Ovary: 4.2 x 2.3 x 2.9 cm Ultrasound Findings: Uterus: Uterus demonstrates normal myometrial echotexture. A left lower uterine segment/body fibroid measures 2.0 x 1.8 x 1.0 cm. Endometrial stripe: Endometrial stripe is within normal limits. Right Ovary: Right ovary is within normal limits. Numerous follicles (over 10) are identified throughout the right ovary. The largest follicle measures 1.2 x 1.1 x 0.5 cm. Left Ovary: Left ovary is within normal limits. Workers Compensation Claims Examiner reports follicles less than 2 cm, however, no discrete follicles are identified on provided imaging. Free Fluid: No evidence of free fluid. [place] Jose, pn Incoming Radiant Results From [employer] - 04/18/2020 8:48 PM EDT EXAMINATION: PELVIC ULTRASOUND 04/18/2020 TECHNIQUE: Transvaginal pelvic ultrasound was performed. Color Doppler evaluation was performed. COMPARISON: 11/15/2018 HISTORY: ORDERING SYSTEM PROVIDED HISTORY: Infertility, female TECHNOLOGIST PROVIDED HISTORY: follicle check Please schedule on day 14 of cycle, 04/18/2020. FINDINGS: Measurements: Uterus: 7.0 x 5.5 x 4.1 cm Endometrial stripe: 13 mm Right Ovary: 4.2 x 3.9 x 3.7 cm Left Ovary: 4.2 x 2.3 x 2.9 cm Ultrasound Findings: Uterus: Uterus demonstrates normal myometrial echotexture. A left lower uterine segment/body fibroid measures 2.0 x 1.8 x 1.0 cm. Endometrial stripe: Endometrial stripe is within normal limits. Right Ovary: Right ovary is within normal limits. Numerous follicles (over 10) are identified throughout the right ovary. The largest follicle measures 1.2 x 1.1 x 0.5 cm. Left Ovary: Left ovary is within normal limits. Workers Compensation Claims Examiner reports follicles less than 2 cm, however, no discrete follicles are identified on provided imaging. Free Fluid: No evidence of free fluid. IMPRESSION: 1. No acute intrapelvic abnormality. 2. Right ovarian follicles as described. No obvious left ovarian follicles on provided images. 3. Uterine fibroid measures up to 2.0 cm. [place] TSH without Reflexon 020 TSH Qn 2.14 m[IU]/L [place] T3, TOTAL (TRIIODOTHYRONINE) on 10-23-2019 T3, TOTAL 129 ng/dL Normal 71-180 [facility] Comment on above: Performed By: #### T 3TOTAL #### [facility] [address] [place] [address] Tamir Mallorie AMYLASEon 10-22-2019 Amylase [Catalytic activity/Vol] 45 U/L Normal 31-110 [facility] Comment on above: Performed By: #### A MY, LIPA, CMP #### [facility] [address] [place] [address] Tamir Mallorie CBC W MANUAL DIFFon 10-22-19 20 ATYPICAL LYMPH # Normal [facility] Comment on above: Performed By: #### S EDR #### [facility] [address] [place], [place] [id number] Tamir Mallorie ATYPICAL LYMPH % Normal [facility] Comment on above: Performed By: #### S EDR #### [facility] [address] [place] [address] Tamir Mallorie BAND # Normal 0.0-0.3 [facility] Comment on above: Performed By: #### S EDR #### [facility] [address] [place] [address] Tamir Mallorie BAND % Normal 0-5 [facility] Comment on above: Performed By: #### S EDR #### [facility] [address] [place] [address] Tamir Mallorie BASOM # 0.00 103/ul Normal 0.00-0.10 [facility] Comment on above: Performed By: #### S EDR #### [facility] [address] [place], [place] [id number] Tamirhenry Raglanden BASOM % 0.0 % Critically low 0.2-2.0 [facility] Comment on above: Performed By: #### S EDR #### [facility] [address] [place], [place] [id number] Tamir Mallorie BLAST # Normal [facility] Comment on above: Performed By: #### S EDR #### [facility] [address] [place] [address] Tamir Mallorie BLAST % Normal [facility] Comment on above: Performed By: #### S EDR #### [facility] [address] [place] [address] Tamir Mallorie CORRECTED WBC Normal 4.0-11.0 [facility] Comment on above: Performed By: #### S EDR #### [facility] [address] [place] [address] Tamir Mallorie Eosinophils (Bld) [#/Vol] 0.00 103/ul Normal 0.00-0.70 [facility] Comment on above: Performed By: #### S EDR #### [facility] [address] [place], [place] [id number] Tamir Mallorie Eosinophils/100 WBC (Bld) 0.0 % Critically low 0.9-7.0 [facility] Comment on above: Performed By: #### S EDR #### [facility] [address] [place] [address] Tamirhenry Raglanden Erythrocyte distribution width (RBC) [Ratio] 13.7 % Normal 11.0-15.0 [facility] Comment on above: Performed By: #### S EDR #### [facility] [address] [place] [address] Tamir Mallorie Hematocrit (Bld) [Volume fraction] 36.7 % Normal 36.0-48.0 [facility] Comment on above: Performed By: #### S EDR #### [facility] [address] [id number] Tamir Mallorie Hemoglobin (Bld) [Mass/Vol] 12.6 g/dl Normal 12.0-16.0 [facility] Comment on above: Performed By: #### S EDR #### [facility] [address] [place], [place] [id number] Tamir Mallorie LYMPHM # 0.62 103/ul Critically low 1.20-3.80 [facility] Comment on above: Performed By: #### S EDR #### [facility] [address] [place] [address] Tamir Mallorie LYMPHM% 7.0 % Critically low 20.5-60.0 [facility] Comment on above: Performed By: #### S EDR #### [facility] [address] [place], [place] [id number] Tamir Mallorie MCH (RBC) [Entitic mass] 28.0 pg Normal 26.7-34.0 [facility] Comment on above: Performed By: #### S EDR #### [facility] [address] [place] [address] Tamir Mallorie MCHC (RBC) [Mass/Vol] 34.3 g/dl Normal 29.9-35.2 [facility] Comment on above: Performed By: #### S EDR #### [facility] [address] [place], [place] [id number] Tamir Mallorie MCV (RBC) [Entitic vol] 81.6 fL Normal 81.0-99.0 [facility] Comment on above: Performed By: #### S EDR #### [facility] [address] [place] [address] Tamir Mallorie METAMYELOCYTE # Normal [facility] Comment on above: Performed By: #### S EDR #### [facility] [address] [place], [place] [id number] Tamir Mallorie METAMYELOCYTE % Normal [facility] Comment on above: Performed By: #### S EDR #### [facility] [address] [place], [place] [id number] Tamir Mallorie MONOM# 0.36 103/ul Normal 0.30-0.80 [facility] Comment on above: Performed By: #### S EDR #### [facility] [address] [place] [address] Tamirhenry Nobles MONOM% 4.0 % Normal 1.7-12.0 [facility] Comment on above: Performed By: #### S EDR #### [facility] [address] [place] [address] Tamir Mallorie MYELOCYTE # Normal [facility] Comment on above: Performed By: #### S EDR #### [facility] [address] [place], [place] [id number] Tamir Mallorie MYELOCYTE % Normal [facility] Comment on above: Performed By: #### S EDR #### [facility] Laboratory [address] [place] [address] Tamir Mallorie NRBC Normal [facility] Comment on above: Performed By: #### S EDR #### [facility] Laboratory [address] [place] [address] Tamirhenry Raglnaden Platelet mean volume (Bld) [Entitic vol] 10.5 fL Normal 9.5-13.5 [facility] Comment on above: Performed By: #### S EDR #### [facility] Laboratory [address] [place], [place] [id number] Tamir Mallorie Platelets (Bld) [#/Vol] 173 103/ul Normal 150-450 [facility] Comment on above: Performed By: #### S EDR #### [facility] Laboratory [address] [place] [address] Tamir Mallorie RBC (Bld) [#/Vol] 4.50 106/ul Normal 4.20-5.40 The [facility] Comment on above: Performed By: #### S EDR #### [facility] Laboratory [address] [place] [address] Tamir Mallorie SEG # 7.92 103/ul Critically high 1.40-6.50 The [facility] Comment on above: Performed By: #### S EDR #### [facility] Laboratory [address] [place] [address] Tamirhenry Nobles Segmented neutrophils/100 WBC (Bld) 89.0 % Critically high 43.0-75.0 The [facility] Comment on above: Performed By: #### S EDR #### [facility] Laboratory [address] [place] [address] Tamirhenry Nobles WBC (Bld) [#/Vol] 8.9 103/ul Normal 4.0-11.0 [facility] Comment on above: Performed By: #### S EDR #### [facility] Laboratory [address] [place] [address] Tamir Mallorie CULTURE URINEon 10-22-2019 CULTURE URINE Culture Observations : No growth Normal [facility] Comment on above: Performed By: #### S EDR #### [facility] Laboratory [address] [place] [address] Tamirhenry Nobles LIPASEon 10-22-2019 Lipase [Catalytic activity/Vol] 143.0 U/L Normal 23.0-300.0 [facility] Comment on above: Performed By: #### A CHRISTIAN LIPA, CMP #### [facility] Laboratory [address] [place], [place] [id number] Tamirhenry Raglanden PROF 14(COMP METB)on 020 Albumin [Mass/Vol] 3.9 g/dL Normal 3.5-5.0 [facility] Comment on above: Performed By: #### A MY LIPA, CMP #### [facility] Laboratory [address] [place], [place] [id number] Tamir Mallorie Albumin/Globulin [Mass ratio] 0.9 {ratio} Normal [facility] Comment on above: Performed By: #### A MY LIPA, CMP #### [facility] [address] [place], [place] [id number] Tamir Mallorie ALP [Catalytic activity/Vol] 54 U/L Normal 38-126 The [facility] Comment on above: Performed By: #### A MY, LIPA, CMP #### [facility] Laboratory [address] [place], [place] [id number] Tamir Mallorie ALT [Catalytic activity/Vol] 175 U/L Critically high 9-52 The [facility] Comment on above: Performed By: #### A SHAI GONZALES, CMP #### [facility] Laboratory [address] [address] Tamir Mallorie Anion gap [Moles/Vol] 14.2 mmol/L Normal Th e [facility] Comment on above: Performed By: #### A LINDA GONZALESA, CMP #### [facility] [address] [place] [address] Tamir Mallorie AST [Catalytic activity/Vol] 91 U/L Critically high 14-36 [facility] Comment on above: Performed By: #### A LINDA GONZALESA, CMP #### [facility] [address] [place] [address] Tamir Mallorie Bilirubin Ql (U) 1.2 mg/dL Normal 0.2-1.3 The [facility] Comment on above: Performed By: #### A LINDA GONZALESA, CMP #### [facility] [address] [place] [address] Tamir Mallorie Calcium [Mass/Vol] 9.2 mg/dL Normal 8.4-10.2 [facility] Comment on above: Performed By: #### A SHAI GONZALES, CMP #### [facility] [address] [place] [address] Tamir Mallorie Chloride [Moles/Vol] 103 mmol/L Normal 98-107 The [facility] Comment on above: Performed By: #### A CHRISTIAN LIPA, CMP #### [facility] [address] [place] [address] Tamir Mallorie CO2 [Moles/Vol] 26.3 mmol/L Normal 22.0-30.0 The [facility] Comment on above: Performed By: #### A SHAI GONZALES, CMP #### [facility] Laboratory [address] [place] [address] Tamir Mallorie Creatinine [Mass/Vol] 0.99 mg/dL Normal 0.52-1.04 [facility] Comment on above: Performed By: #### A CHRISTIAN LIPA, CMP #### [facility] [address] [place], [place] [address] Tamir Mallorie EGFR-AF KAZAKH >60 Normal >=60 [facility] Comment on above: Performed By: #### A SHAI GONZALES, CMP #### [facility] [address] [address] Tamir Mallorie EGFR-NON AF KAZAKH >60 Normal >=60 [facility] Comment on above: Performed By: #### A SHAI GONZALES, CMP #### [facility] [address] [place] [address] Tamir Mallorie Globulin (S) [Mass/Vol] 4.4 g/dL Normal [facility] Comment on above: Performed By: #### A SHAI GONZALES, CMP #### [facility] [address] [place] [address] Tamir Mallorie Glucose [Mass/Vol] 173 mg/dL Critically high 74-106 [facility] Comment on above: Performed By: #### A SHAI GONZALES, CMP #### [facility] [address] [place] [address] Tamir Mallorie Potassium [Moles/Vol] 3.5 mmol/L Normal 3.4-5.0 [facility] Comment on above: Performed By: #### A SHAI GONZALES, CMP #### [facility] [address] [place] [address] Tamir Mallorie Protein [Mass/Vol] 8.3 g/dL Critically high 6.1-8.2 [facility] Comment on above: Performed By: #### A SHAI GONZALES, CMP #### [facility] [address] [place] [address] Tamir Mallorie Sodium [Moles/Vol] 140 mmol/L Normal 137-145 [facility] Comment on above: Performed By: #### A SHAI GONZALES, CMP #### [facility] [address] [place] [address] Tamir Mallorie Urea nitrogen [Mass/Vol] 15.0 mg/dL Normal 7.0-17.0 [facility] Comment on above: Performed By: #### A SHAI GONZALES, CMP #### [facility] [address] [place] [address] Tamir Mallorie Urea nitrogen/Creatinine [Mass ratio] 15.2 mg/mg Normal [facility] Comment on above: Performed By: #### A CHRISTIAN, SHAI, CMP #### [facility] [address] [place], [place] [id number] Tamir Mallorie UA RANDOM W/MICROSCOPICon AMORPHOUS CRYSTALS MANY Normal [facility] Comment on above: Performed By: #### U AMIC #### [facility] [address] [place] [address] Tamir Mallorie Bacteria LM.HPF (Urine sed) [#/Area] TRACE Normal NONE SEEN [facility] Comment on above: Performed By: #### U AMIC #### [facility] [address] [place] [address] Tamir Mallorie Bilirubin [Mass/Vol] SMALL Normal NEGATIVE [facility] Comment on above: Performed By: #### U AMIC #### [facility] [address] [place] [address] Tamir Mallorie BLOOD LARGE Normal NEGATIVE [facility] Comment on above: Performed By: #### U AMIC #### [facility] [address] [place] [address] Tamir Mallorie CAST NONE SEEN Normal NONE SEEN [facility] Comment on above: Performed By: #### U AMIC #### [facility] [address] [place] [address] Tamir Mallorie Clarity (U) CLOUDY Normal [facility] Comment on above: Performed By: #### U AMIC #### [facility] [address] [place] [address] Tamir Mallorie Color (U) BROWN Normal YELLOW [facility] Comment on above: Performed By: #### U AMIC #### [facility] [address] [place] [address] Tamir Mallorie Crystals LM Nom (Urine sed) SEEN Normal NONE SEEN The [facility] Comment on above: Performed By: #### U AMIC #### [facility] [address] [place], [place] [address] Tamir Mallorie Epithelial cells LM.HPF (Urine sed) [#/Area] MODERATE Normal [facility] Comment on above: Performed By: #### U AMIC #### [facility] [address] [address] Tamir Mallorie Glucose [Mass/Vol] Negative Normal NEGATIVE [facility] Comment on above: Performed By: #### U AMIC #### [facility] [address] [id number] Tamir Mallorie Ketones Ql (U) Negative Normal NEGATIVE [facility] Comment on above: Performed By: #### U AMIC #### [facility] [address] [place] [address] Tamir Mallorie MUCOUS TRACE Normal NONE SEEN [facility] Comment on above: Performed By: #### U AMIC #### [facility] [address] [place] [address] Tamir Mallorie Nitrite Ql (U) Negative Normal NEGATIVE [facility] Comment on above: Performed By: #### U AMIC #### [facility] [address] [place] [address] Tamir Mallorie pH (Bld) 5.5 Normal 5-9 [facility] Comment on above: Performed By: #### U AMIC #### [facility] [address] [place], [place] [id number] Tamir Mallorie Protein [Mass/Vol] 30 mg/dl Normal [facility] Comment on above: Performed By: #### U AMIC #### [facility] [address] [address] Tamir Mallorie RBC (Bld) [#/Vol] >100 Normal 0-2 [facility] Comment on above: Performed By: #### U AMIC #### [facility] [address] [place], [place] [id number] Tamir Mallorie SPEC GRAVITY >=1.030 Normal 1.005-<=1.025 [facility] Comment on above: Performed By: #### U AMIC #### [facility] [address] [place], [place] [id number] Tamir Mallorie Urobilinogen Qn (U) 0.2 EU/dl Normal [facility] Comment on above: Performed By: #### U AMIC #### [facility] [address] [place], [place] [id number] Tamir Nobles WBC (Bld) [#/Vol] Negative Normal NEGATIVE [facility] Comment on above: Performed By: #### U AMIC #### [facility] [address] [place], [place] [id number] Tamir Mallorie WBC (Bld) [#/Vol] NONE SEEN Normal NONE SEEN [facility] Comment on above: Performed By: #### U AMIC #### [facility] [address] [place], [place] [id number] Tamir Nobles AMYLASEon 10-21-2019 Amylase [Catalytic activity/Vol] 51 U/L Normal 31-110 [facility] Comment on above: Performed By: #### S EDR #### [facility] [address] [place], [place] [id number] Tamir Nobles CARDIAC HONORIO ADMITon 020 CK [Catalytic activity/Vol] 74 U/L Normal 30-135 [facility] Comment on above: Performed By: #### S EDR #### [facility] [address] [place], [place] [id number] Tamir Nobles CK.MB [Mass/Vol] 0.15 ng/mL Normal <=2.37 [facility] Comment on above: Performed By: #### S EDR #### [facility] [address] [place], [place] [id number] Tamir Raglanden INR Coag (Bld) [Relative time] SEE BELOW Normal [facility] Comment on above: Result Comment: <0.0 34 ng/ml NEGATIVE 0.034-0.119 INDETERMINATE 0.120 AMI CUT OFF Performed By: #### S EDR #### [facility] [address] [place], [place] [id number] Tamir Mallorie KATHRYN 69.0 ng/mL Critically high <=61.5 [facility] Comment on above: Performed By: #### S EDR #### [facility] [address] [place], [place] [id number] Tamir Mallorie TROP <0.017 Normal <=0.034 [facility] Comment on above: Performed By: #### S EDR #### [facility] [address] [place], [place] [id number] Tamir Mallorie CBC AUTO DIFFon 10-21-2019 Basophils (Bld) [#/Vol] 0.0 103/ul Normal 0.0-0.1 [facility] Comment on above: Performed By: #### C BC #### [facility] [address] [place] [address] Tamir Mallorie Basophils/100 WBC (Bld) 0.2 % Normal 0.2-2.0 [facility] Comment on above: Performed By: #### C BC #### [facility] [address] [place] [address] Tamir Mallorie Eosinophils (Bld) [#/Vol] 0.0 103/ul Normal 0.0-0.7 [facility] Comment on above: Performed By: #### C BC #### [facility] [address] [place] [address] Tamir Mallorie Eosinophils/100 WBC (Bld) 0.3 % Critically low 0.9-7.0 [facility] Comment on above: Performed By: #### C BC #### [facility] [address] [place] [address] Tamir Mallorie Erythrocyte distribution width (RBC) [Ratio] 13.6 % Normal 11.0-15.0 [facility] Comment on above: Performed By: #### C BC #### [facility] [address] [place] [address] Tamir Mallorie Hematocrit (Bld) [Volume fraction] 37.3 % Normal 36.0-48.0 [facility] Comment on above: Performed By: #### C BC #### [facility] [address] [place], [place] [id number] Tamir Mallorie Hemoglobin (Bld) [Mass/Vol] 13.0 g/dL Normal 12.0-16.0 [facility] Comment on above: Performed By: #### C BC #### [facility] [address] [place], [place] [id number] Tamir Mallorie IG # 0.03 10e3/ul Normal 0.00-0.03 [facility] Comment on above: Performed By: #### C BC #### [facility] [address] [place] [address] Tamir Mallorie IG % 0.3 % Normal 0.0-0.5 [facility] Comment on above: Performed By: #### C BC #### [facility] [address] [place] [address] Tamir Mallorie Lymphocytes (Bld) [#/Vol] 0.9 103/ul Critically low 1.2-3.8 [facility] Comment on above: Performed By: #### C BC #### [facility] [address] [place] [address] Tamir Mallorie Lymphocytes/100 WBC (Bld) 9.3 % Critically low 20.5-60.0 [facility] Comment on above: Performed By: #### C BC #### [facility] [address] [place] [address] Tamir Mallorie MANUAL DIFF REQ NO Normal [facility] Comment on above: Performed By: #### C BC #### [facility] [address] [place], [place] [id number] Tamir Mallorie MCH (RBC) [Entitic mass] 28.1 pg Normal 26.7-34.0 [facility] Comment on above: Performed By: #### C BC #### [facility] [address] [place] [address] Tamir Mallorie MCHC (RBC) [Mass/Vol] 34.9 g/dL Normal 29.9-35.2 [facility] Comment on above: Performed By: #### C BC #### [facility] [address] [place], [place] [id number] Tamir Mallorie MCV (RBC) [Entitic vol] 80.6 fL Critically low 81.0-99.0 [facility] Comment on above: Performed By: #### C BC #### [facility] [address] [place], [place] [address] Tamir Mallorie Monocytes (Bld) [#/Vol] 0.5 103/ul Normal 0.3-0.8 [facility] Comment on above: Performed By: #### C BC #### [facility] [address] [place], [place] [address] Tamir Mallorie Monocytes/100 WBC (Bld) 5.4 % Normal 1.7-12.0 [facility] Comment on above: Performed By: #### C BC #### [facility] [address] [place], [place] [address] Tamir Mallorie Neutrophils (Bld) [#/Vol] 8.2 103/ul Critically high 1.4-6.5 [facility] Comment on above: Performed By: #### C BC #### [facility] [address] [place], [place] [id number] Tamir Mallorie Neutrophils/100 WBC (Bld) 84.5 % Critically high 43.0-75.0 [facility] Comment on above: Performed By: #### C BC #### [facility] [address] [place], [place] [id number] Tamir Mallorie Platelet mean volume (Bld) [Entitic vol] 11.0 fL Normal 9.5-13.5 [facility] Comment on above: Performed By: #### C BC #### [facility] [address] [place] [address] Tamir Mallorie Platelets (Bld) [#/Vol] 188 103/ul Normal 150-450 [facility] Comment on above: Performed By: #### C BC #### [facility] [address] [place] [address] Tamir Mallorie RBC (Bld) [#/Vol] 4.63 106/ul Normal 4.20-5.40 [facility] Comment on above: Performed By: #### C BC #### [facility] [address] [place] [address] Tamir Mallorie WBC (Bld) [#/Vol] 9.7 103/ul Normal 4.0-11.0 [facility] Comment on above: Performed By: #### C BC #### [facility] [address] [place] [address] Tamir Nobles INFLUENZA A AND B AGon INFLUANEGH SEE BELOW Normal [facility] Comment on above: Result Comment: Nega tive for Flu A protein angiten. Infection due to Flu A cannot be ruled out. Flu A angiten in the sample may be below the detection limit of the test. Performed By: #### I NFLUAB #### [facility] [address] [place] [address] Tamir Nobles INFLUBNEGH SEE BELOW Normal [facility] Comment on above: Result Comment: Nega tive for Flu B protein antigen. Infection due to Flu B cannot be ruled out. Flu B antigen in the sample may be below the detection limit of the test. Performed By: #### I NFLUAB #### [facility] [address] [place] [address] Tamir Nobles INFLUENZA A AG Negative Normal NEGATIVE SEE COMMENT [facility] Comment on above: Performed By: #### I NFLUAB #### [facility] [address] [place] [address] Tamir Nobles INFLUENZA B AG Negative Normal NEGATIVE SEE COMMENT [facility] Comment on above: Performed By: #### I NFLUAB #### [facility] [address] [place] [address] Tamir Nobles INTERNAL CONTROLS Within Normal Limits Normal Wi thin Normal Limits [facility] Comment on above: Performed By: #### I NFLUAB #### [facility] [address] [place] [address] Tamir Nobles LACTATE/LACTIC ACIDon 2019 Lactate [Moles/Vol] 2.1 mmol/L Normal 0.7-2.1 [facility] Comment on above: Performed By: #### L ACT #### [facility] [address] [place] [address] Tamir Nobles LIPASEon 10-21-2019 Lipase [Catalytic activity/Vol] 155.0 U/L Normal 23.0-300.0 [facility] Comment on above: Performed By: #### S EDR #### [facility] [address] [place] [address] Tamir Nobles PROCALCITONINon 10-21-2019 PCT header 1 SEE BELOW Normal [facility] Comment on above: Result Comment: PCT <0.5ng/mL: Systemic infection (sepsis) is not likely, local bacterial infection possible, low risk for progression to severe systemic infection (severe sepsis) Performed By: #### S EDR #### [facility] [address] [place] [address] Tamir Mallorie PCT header 2 SEE BELOW Normal [facility] Comment on above: Result Comment: PCT >/=0.5 and <2 ng/mL: Systemic infection (sepsis) is possible, moderate risk for progression to severe systemic infection (severe sepsis) Performed By: #### S EDR #### [facility] [address] [place] [address] Tamir Mallorie PCT header 3 SEE BELOW Normal [facility] Comment on above: Result Comment: PCT >/=2.0 and <10 ng/mL: Systemic infection (sepsis) is likely, unless other causes are known, high risk for progession to severe systemic infection(severe sepsis) Performed By: #### S EDR #### [facility] [address] [place] [address] Tamir Mallorie PCT header 4 SEE BELOW Normal [facility] Comment on above: Result Comment: PCT >/= 10 ng/mL: Important systemic inflammatory response almost exclusively due to severe bacterial sepsis or septic shock, high likelihood of severe sepsis or septic shock Performed By: #### S EDR #### [facility] [address] [place] [address] Tamir Nobles PROCALCITONIN 0.07 ng/mL Normal 0.00-0.50 [facility] Comment on above: Performed By: #### S EDR #### [facility] [address] [place] [address] Tamir Nobles PROF 14(COMP METB)on 020 Albumin [Mass/Vol] 4.4 g/dL Normal 3.5-5.0 [facility] Comment on above: Performed By: #### S EDR #### [facility] [address] [id number] Tamir Mallorie Albumin/Globulin [Mass ratio] 1.0 {ratio} Normal [facility] Comment on above: Performed By: #### S EDR #### [facility] [address] [place], [place] [id number] Tamir Mallorie ALP [Catalytic activity/Vol] 57 U/L Normal 38-126 [facility] Comment on above: Performed By: #### S EDR #### [facility] [address] [place], [place] [id number] Tamir Mallorie ALT [Catalytic activity/Vol] 205 U/L Critically high 9-52 [facility] Comment on above: Performed By: #### S EDR #### [facility] [address] [place], [place] [id number] Tamir Mallorie Anion gap [Moles/Vol] 13.5 mmol/L Normal [facility] Comment on above: Performed By: #### S EDR #### [facility] [address] [place] [address] Tamir Mallorie AST [Catalytic activity/Vol] 129 U/L Critically high 14-36 [facility] Comment on above: Performed By: #### S EDR #### [facility] [address] [place], [place] [id number] Tamir Mallorie Bilirubin Ql (U) 1.4 mg/dL Critically high 0.2-1.3 [facility] Comment on above: Performed By: #### S EDR #### [facility] [facility] [address] [place], [place] [id number] Tamir Mallorie Calcium [Mass/Vol] 9.7 mg/dL Normal 8.4-10.2 [facility] Comment on above: Performed By: #### S EDR #### [facility] [address] [place], [place] [id number] Tamir Mallorie Chloride [Moles/Vol] 102 mmol/L Normal 98-107 [facility] Comment on above: Performed By: #### S EDR #### [facility] [address] [place], [place] [id number] Tamir Mallorie CO2 [Moles/Vol] 28.8 mmol/L Normal 22.0-30.0 [facility] Comment on above: Performed By: #### S EDR #### [facility] [address] [id number] Tamir Mallorie Creatinine [Mass/Vol] 0.88 mg/dL Normal 0.52-1.04 [facility] Comment on above: Performed By: #### S EDR #### [facility] [address] [id number] Tamir Mallorie EGFR-AF KAZAKH >60 Normal >=60 [facility] Comment on above: Performed By: #### S EDR #### [facility] [address] [id number] Tamir Mallorie EGFR-NON AF KAZAKH >60 Normal >=60 [facility] Comment on above: Performed By: #### S EDR #### [facility] [address] [address] Tamir Mallorie Globulin (S) [Mass/Vol] 4.2 g/dL Normal [facility] Comment on above: Performed By: #### S EDR #### [facility] [address] [place], [place] [id number] Tamir Mallorie Glucose [Mass/Vol] 99 mg/dL Normal 74-106 [facility] Comment on above: Performed By: #### S EDR #### [facility] [address] [place] [address] Tamir Mallorie Potassium [Moles/Vol] 3.3 mmol/L Critically low 3.4-5.0 [facility] Comment on above: Performed By: #### S EDR #### [facility] [address] [place], [place] [id number] Tamir Mallorie Protein [Mass/Vol] 8.6 g/dL Critically high 6.1-8.2 [facility] Comment on above: Performed By: #### S EDR #### [facility] [address] [address] Tamir Mallorie Sodium [Moles/Vol] 141 mmol/L Normal 137-145 [facility] Comment on above: Performed By: #### S EDR #### [facility] [address] [id number] Tamir Mallorie Urea nitrogen [Mass/Vol] 11.0 mg/dL Normal 7.0-17.0 [facility] Comment on above: Performed By: #### S EDR #### [facility] [address] [id number] Tamir Mallorie Urea nitrogen/Creatinine [Mass ratio] 12.5 mg/mg Normal [facility] Comment on above: Performed By: #### S EDR #### [facility] [address] [id number] Tamir Mallorie SED RATE CARLINERGRENon 2019 SED RATE 30 mm/hr Critically high <=20 [facility] Comment on above: Performed By: #### S EDR #### [facility] [address] [address] Tamir Mallorie SEDRH METHOD AND NORMAL CHANGE 11/18/15. RESULTS ARE NOT AFFECTED BY HEMATOCRIT. Normal [facility] Comment on above: Performed By: #### S EDR #### [facility] [address] [place], [place] [id number] Tamir Mallorie STREPT SCREENon 10-21-2019 STREP SCREEN A Positive Normal NEGATIVE [facility] Comment on above: Performed By: #### A MY, LIPA, CMP #### [facility] [address] [id number] Tamir Mallorie T4on 10-21-2019 T4 [Mass/Vol] 14.10 ug/dL Critically high 5.53-11.00 [facility] Comment on above: Performed By: #### S EDR #### [facility] [address] [id number] Tamir Mallorie TSHon 10-21-2019 TSH Qn 0.669 uIU/mL Normal 0.470-4.680 [facility] Comment on above: Performed By: #### S EDR #### [facility] [address] [place], [place] [id number] Tamir Mallorie TSH Qn SEE BELOW Normal [facility] Comment on above: Result Comment: <0.3 4 UIU/ml HYPERTHYROID 0.34-5.60 UIU/ml EUTHYROID >5.60 UIU/ml HYPOTHYROID Performed By: #### S EDR #### [facility] [address] [place], [place] [address] Tamir Nobles Hematologyon 06-05-2019 Basophils/100 WBC (Bld) 0.60 % Invalid Interpretation Code [employer] Eosinophils/100 WBC (Bld) 1.50 % Invalid Interpretation Code [employer] Hematocrit (Bld) [Volume fraction] 36.0 % Invalid Interpretation Code [employer] Hemoglobin (Bld) [Mass/Vol] 12.10 g/dL Invalid Interpretation Code [employer] Lymphocytes/100 WBC (Bld) 26.80 % Invalid Interpretation Code [employer] MCH (RBC) [Entitic mass] 26.40 pg Invalid Interpretation Code [employer] MCV (RBC) [Entitic vol] 78.40 fL Invalid Interpretation Code [employer] Monocytes/100 WBC (Bld) 7.30 % Invalid Interpretation Code [employer] Neutrophils/100 WBC (Bld) 63.20 % Invalid Interpretation Code [employer] Platelets (Bld) [#/Vol] 220.0 10*3/uL Invalid Interpretation Code [employer] RBC (Bld) [#/Vol] 4.590 10*6/uL Invalid Interpretation Code [employer] WBC (Bld) [#/Vol] 5.20 10*3/uL Invalid Interpretation Code [employer] Otheron 06-05-2019 Erythrocyte distribution width (RBC) [Ratio] 14.80 % Invalid Interpretation Code [employer] MCHC (RBC) [Mass/Vol] 33.60 g/dL Invalid Interpretation Code [employer] ls Invalid Interpretation Code [employer] Thyroidon 06-05-2019 T4 [Mass/Vol] 12.9 H Invalid Interpretation Code [employer] TSH Qn 1.431 m[IU]/L Invalid Interpretation Code [employer] Coding Summary.on 03-04-2019 Coding Summary. CODING DATE: 03/04/2019 [facility] STATUS: Home (Routine DC) PAYOR: Medicaid EAPG DESCRIPTION 0396 LEVEL I MICROBIOLOGY TESTS ADMIT DX: REASON FOR VISIT DX: J02.9 Acute pharyngitis, unspecified FINAL DX: PRINCIPAL: J02.9 Acute pharyngitis, unspecified SECONDARY: PYMT PROC EAPG STAT DESCRIPTION DOCTOR NAME DATE NOTE: The code number assigned matches the documented diagnosis and / or procedure in the patient's chart. However, the narrative phrase printed from the coding software may appear abbreviated, or result in slightly different terminology. Coded By: Stephanie Chamberlain CphT Date Saved: 03/04/2019 03:08 pm Normal [facility] Imm/Pathon 01-24-2019 Thyroglobulin Ab Qn [IU]/mL [employer] Thyroperoxidase Ab Qn 815.0 H Invalid Interpretation Code [facility] - Serology - non- microon 01-24-2019 Thyroglobulin Ab Qn [IU]/mL Invalid Interpretation Code [employer] Otheron 01-24-2019 ke Invalid Interpretation Code [employer] Thyroidon 01-24-2019 T4 mass conc 10.8 ug/dL Invalid Interpretation Code [employer] Thyrotropin Qn 1.15 m[IU]/L Invalid Interpretation Code [facility] Vital Signs Date Time Vital Sign Value Performing Clinician Stu vasquez 02-14-2025 07:44-0400 Respiratory rate 14 /min Harpreet Koroma MD [facility] [employer] 02-14-2025 07:00-0400 Body temperature 97.39 [degF] Harpreet Koroma MD [facility] 02-14-2025 07:00-0400 Diastolic blood pressure 78 mm[Hg] Harpreet Koroma MD Work [facility] [employer] 02-14-2025 07:00-0400 Heart rate 79 /min Harpreet Koroma MD Work [facility] [employer] 02-14-2025 07:00-0400 SaO2% (BldA) [Mass fraction] 96 % Harpreet Koroma MD Work [facility] [employer] 02-14-2025 07:00-0400 Systolic blood pressure 134 mm[Hg] Harpreet Koroma MD Work Phone: [facility] [employer] 02-14-2025 01:55-0400 Body height 165.1 cm Harpreet Koroma MD Work Phone: [facility] [employer] 02-14-2025 01:55-0400 Body mass index (BMI) [Ratio] 34.55 kg/m2 Harpreet Koroma MD Work Phone: [facility] [employer] 02-14-2025 01:55-0400 Body weight 94.17 kg Harpreet Koroma MD Work Phone: [facility] [employer] 11-24-2024 11:02-0500 Body height 165.1 cm Michele Peterson DO Work Phone: [facility] 11-24-2024 11:02-0500 Body mass index (BMI) [Ratio] 35.45 kg/m2 Michele Peterson DO Work Phone: [facility] [employer] 11-24-2024 11:02-0500 Body weight 96.62 kg Michele Peterson DO Work Phone: [facility] [employer] 11-10-2024 08:05-0500 Body height 165.1 cm Michele Peterson DO Work Phone: [facility] 11-10-2024 08:05-0500 Body mass index (BMI) [Ratio] 35.45 kg/m2 Michele Peterson DO Work Phone: [facility] [employer] 11-10-2024 08:05-0500 Body weight 96.62 kg Michele Peterson DO Work Phone: [facility] 10-27-2024 10:14-0500 Body height 165.1 cm Sherita Jurado Naehas Work Phone: [facility] 10-27-2024 10:14-0500 Body mass index (BMI) [Ratio] 35.58 kg/m2 Sherita Jurado Naehas Work Phone: [facility] [employer] 10-27-2024 10:14-0500 Body weight 96.98 kg Sherita Jurado Naehas Work Phone: [facility] [employer] 10-27-2024 10:14-0500 Diastolic blood pressure 86 mm[Hg] Sherita Jurado Naehas Work Phone: [facility] [employer] 10-27-2024 10:14-0500 Heart rate 89 /min Sheritaksenia Jurado Naehas Work Phone: [facility] [employer] 10-27-2024 10:14-0500 SaO2% (BldA) [Mass fraction] 99 % Sheritaksenia Jurado Naehas Work Phone: [facility] 10-27-2024 10:14-0500 Systolic blood pressure 134 mm[Hg] Sherita Jurado Naehas Work Phone: [facility] [employer] 10-27-2024 09:22-0500 Body height 165.1 cm Michele Peterson Naehas Work Phone: [facility] 10-27-2024 09:22-0500 Body mass index (BMI) [Ratio] 35.61 kg/m2 Michele Peterson DO Work Phone: [facility] 10-27-2024 09:22-0500 Body weight 97.07 kg Michele Peterson DO Work Phone: [facility] 03-05-2024 10:05-0400 Body height 168.91 cm [employer] 03-05-2024 10:05-0400 Body mass index (BMI) [Ratio] 34.18 kg/m2 [employer] 03-05-2024 10:05-0400 Body surface area Derived from formula 2.14 m2 [employer] 03-05-2024 10:05-0400 Body weight 97.52 kg [employer] 03-05-2024 10:05-0400 Diastolic blood pressure 74 mm[Hg] [employer] 03-05-2024 10:05-0400 Heart rate 72 /min [employer] 03-05-2024 10:05-0400 Systolic blood pressure 124 mm[Hg] [employer] 02-08-2023 12:19-0400 Body height 169.55 cm [employer] 02-08-2023 12:19-0400 Body mass index (BMI) [Ratio] 33.77 kg/m2 [employer] 02-08-2023 12:19-0400 Body surface area Derived from formula 2.14 m2 [employer] 02-08-2023 12:19-0400 Body weight 97.07 kg Diogenes [employer] 02-08-2023 12:19-0400 Diastolic blood pressure 62 mm[Hg] [facility] [employer] 02-08-2023 12:19-0400 Heart rate 80 /min [employer] [employer] 02-08-2023 12:19-0400 Systolic blood pressure 100 mm[Hg] [employer] 03-22-2022 19:59-0400 Body mass index (BMI) [Ratio] 34.11 kg/m2 Honorio Shelby MD Work Phone: [employer] 03-22-2022 19:59-0400 Body temperature 98.4 [degF] Honorio Shelby MD Work Phone: [employer] 03-22-2022 19:59-0400 Body weight 92.99 kg Honorio Shelby MD Work Phone: [employer] 03-22-2022 19:59-0400 Diastolic blood pressure 95 mm[Hg] Honorio Shelby MD Work Phone: [employer] 03-22-2022 19:59-0400 Heart rate 97 /min Honorio Shelby MD Work Phone: [employer] 03-22-2022 19:59-0400 Respiratory rate 16 /min Honorio Shelby MD Work Phone: [employer] 03-22-2022 19:59-0400 SaO2% (BldA) [Mass fraction] 100 % Honorio Shelby MD Work Phone: [employer] 03-22-2022 19:59-0400 Systolic blood pressure 160 mm[Hg] Honorio Shelby MD Work Phone: ROSETTA MCKENNA [employer] 01-23-2022 16:42-0400 Body height 169.55 cm [employer] 01-23-2022 16:42-0400 Body mass index (BMI) [Ratio] 32.82 kg/m2 [employer] 01-23-2022 16:42-0400 Body surface area Derived from formula 2.11 m2 [employer] 01-23-2022 16:42-0400 Body weight 94.35 kg [employer] 01-23-2022 16:42-0400 Diastolic blood pressure 74 mm[Hg] [employer] 01-23-2022 16:42-0400 Heart rate 76 /min [employer] 01-23-2022 16:42-0400 Systolic blood pressure 122 mm[Hg] [employer] 03-11-2021 10:44-0400 Body temperature 98.2 [degF] Cassidy Alvarez MD Work Phone: [employer] Work Phone: 03-11-2021 10:38-0400 Body height 167.6 cm Cassidy Alvarez MD Work Phone: [employer] Work Phone: 03-11-2021 10:38-0400 Body mass index (BMI) [Ratio] 32.38 kg/m2 Cassidy Alvarez MD Work Phone: [employer] Work Phone: 03-11-2021 10:38-0400 Body weight 90.99 kg Cassidy Alvarez MD Work Phone: [employer] Work Phone: 03-11-2021 10:38-0400 Diastolic blood pressure 56 mm[Hg] Cassidy Alvarez MD Work Phone: [employer] Work Phone: 03-11-2021 10:38-0400 Heart rate 98 /min Cassidy Alvarez MD Work Phone: [employer] Work Phone: 03-11-2021 10:38-0400 Respiratory rate 20 /min Cassidy Alvarez MD Work Phone: [employer] Work Phone: 03-11-2021 10:38-0400 SaO2% (BldA) [Mass fraction] 99 % Cassidy Alvarez MD Work Phone: [employer] Work Phone: 03-11-2021 10:38-0400 Systolic blood pressure 118 mm[Hg] Cassidy Alvarez MD Work Phone: [employer] Work Phone: 01-26-2021 16:40-0400 BMI (Body Mass Index) 32.03 kg/m2 [employer] 01-26-2021 16:40-0400 Body weight 92.76 kg [employer] 01-26-2021 16:40-0400 BP Diastolic 78 mm[Hg] [employer] 01-26-2021 16:40-0400 BP Systolic 124 mm[Hg] [employer] 01-26-2021 16:40-0400 BSA (Body Surface Area) 2.09 m2 [employer] 01-26-2021 16:40-0400 Height 170.18 cm [employer] [employer] 01-26-2021 16:40-0400 Pulse (Heart Rate) 76 /min [facility] 09-02-2020 09:45-0500 BP Diastolic 83 mm[Hg] [facility] [place] 09-[facility]-2020 09:45-0500 BP Systolic 114 mm[Hg] [facility] [place] 09-02-2020 09:45-0500 Pulse (Heart Rate) 81 /min [facility] [place] 09-02-2020 09:45-0500 Pulse Oximetry 98 % [facility] [place] 09-02-2020 09:45-0500 Respiratory Rate 14 /min [facility] [place] 09-02-2020 09:16-0500 Body Temperature 97.39 [degF] [facility] [place] 09-02-2020 07:43-0500 BMI (Body Mass Index) 33.28 kg/m2 [facility] [place] 09-02-2020 07:43-0500 Body weight 90.72 kg [facility] [place] 09-02-2020 07:43-0500 Height 165.1 cm [facility] [place] 06-17-2020 15:25-0400 BP Diastolic 82 mm[Hg] Mumtaz Heath [facility], [place] 06-17-2020 15:25-0400 BP Systolic 138 mm[Hg] [facility], [place] 06-17-2020 15:25-0400 Pulse Oximetry 100 % [facility], [place] 06-17-2020 15:21-0400 BMI (Body Mass Index) 34.61 kg/m2 [facility], [place] 06-17-2020 15:21-0400 Body Temperature 98.49 [degF] [facility] 06-17-2020 15:21-0400 Body weight 94.35 kg [facility], [place] 06-17-2020 15:21-0400 Height 165.1 cm [facility], [place] 06-17-2020 15:21-0400 Pulse (Heart Rate) 72 /min [facility] Preciado [facility], [place] 06-17-2020 15:21-0400 Respiratory Rate 18 /min [facility], [place] 01-27-2019 12:08-0400 BMI (Body Mass Index) 35.08 kg/m2 [facility] [employer] 01-27-2019 12:08-0400 Body weight 101.61 kg [facility] [employer] [facility] 01-27-2019 12:08-0400 BP Diastolic 90 mm[Hg] [employer] 01-27-2019 12:08-0400 BP Systolic 132 mm[Hg] [employer] 01-27-2019 12:08-0400 BSA (Body Surface Area) 2.19 m2 [employer] 01-27-2019 12:08-0400 Height 170.18 cm [employer] 01-27-2019 12:08-0400 Pulse (Heart Rate) 76 /min Diogenes [employer] 01-27-2019 12:08-0400 Weight 101.61 kg [employer] 07-29-2018 11:10-0400 BMI (Body Mass Index) 34.93 kg/m2 [employer] 07-29-2018 11:10-0400 Body weight 101.15 kg [employer] 07-29-2018 11:10-0400 BP Diastolic 70 mm[Hg] Diogenes [employer] 07-29-2018 11:10-0400 BP Systolic 118 mm[Hg] [facility]ogenes [employer] 07-29-2018 11:10-0400 BSA (Body Surface Area) 2.19 m2 [facility] [employer] 07-29-2018 11:10-0400 Height 170.18 cm [facility] [employer] 07-29-2018 11:10-0400 Pulse (Heart Rate) 68 /min [facility] [employer] 07-29-2018 [id number] Weight 101.15 kg [facility] [employer] Encounters Encounter Date Encounter Type Care Provider Facility Start: 02-13-2025 End: 02-14-2025 Evaluation and management of inpatient Harpreet Koroma MD Work Phone: [facility] Comment on above: Abdominal pain, righ t lower quadrant (Primary Dx); Acute appendicitis with generalized peritonitis without gangrene, perforation, or abscess Start: 02-11-2025 End: 02-11-2025 [facility] Start: 01-28-2025 End: 01-28-2025 [facility] Start: 01-28-2025 End: 01-28-2025 Subsequent hospital visit by physician Carson Salazar MD Work Phone: [facility] Laboratory Start: 01-19-2025 End: 01-19-2025 ambulatory STEFFI ROBBINS [facility] Start: 01-11-2025 End: 01-11-2025 ambulatory PINKY ROMERO Facility:[facility] Start: 01-11-2025 End: 01-11-2025 Patient encounter procedure Aden Resendez OD Work Phone: Optometry Comment on above: Ocular hypertension, bilateral (Primary Dx); Allergic conjunctivitis of both eyes; Myopia, bilateral Start: 12-30-2024 End: 12-30-2024 ambulatory PINKYJACK RAMOSMER Facility:[facility] Start: 12-30-2024 End: 12-30-2024 Patient encounter procedure Kirsty Martinez OD Work Phone: Ophthalmology Comment on above: Conjunctival edema, bilateral (Primary Dx); Dry eye syndrome of bilateral lacrimal glands; Ocular hypertension, bilateral Start: 12-23-2024 End: 12-23-2024 ambulatory PINKY Aaron [facility] Facility:[facility] Start: 12-23-2024 End: 12-23-2024 Patient encounter procedure Kirsty Martinez OD Work Phone: Ophthalmology Comment on above: Conjunctival edema, bilateral (Primary Dx) Start: 12-18-2024 End: 12-18-2024 Patient encounter procedure Kirsty Martinez OD Work Phone: Ophthalmology Comment on above: Conjunctival edema, bilateral (Primary Dx) Start: 12-18-2024 End: 12-18-2024 ambulatory PINKY Aaron [facility] Facility:[facility] Start: 11-27-2024 End: 11-27-2024 ambulatory CARSON Preciado [facility] Start: 11-27-2024 End: 11-27-2024 Subsequent hospital visit by physician Carson Salazar MD Work Phone: [facility] Laboratory Start: 11-24-2024 End: 11-24-2024 Bamboo flowsheet Michele Peterson DO Work Phone: [facility] Start: 11-24-2024 End: 11-24-2024 Bamboo flowsheet Michele Peterson DO Work Phone: [facility] Start: 11-24-2024 End: 11-24-2024 ambulatory MICHELE PETERSON Not Available Start: 11-24-2024 End: 11-24-2024 Office outpatient visit 15 minutes Michele Peterson DO Work Phone: [facility] Comment on above: Thyroid nodule (CMS/ HCC) (Primary Dx) Start: 11-10-2024 End: 11-10-2024 Bamboo flowsheet Michele Peterson DO Work Phone: [facility] Start: 11-10-2024 End: 11-10-2024 Bamboo flowsheet Michele Peterson DO Work Phone: [facility] Start: 11-10-2024 End: 11-10-2024 Departed Referred Michele Peterson DO Work Phone: [facility] [place] Work Phone: Start: 11-10-2024 End: 11-10-2024 Office outpatient visit 25 minutes Michele Peterson DO Work Phone: [facility] Comment on above: Thyroid nodule (CMS/ HCC) (Primary Dx) Start: 11-10-2024 End: 11-10-2024 ambulatory Michele Peterson [facility] Work Phone: Start: 11-03-2024 End: 11-03-2024 ambulatory [facility] Start: 11-03-2024 End: 11-03-2024 Subsequent hospital visit by physician Carson Salazar MD Work Phone: [facility] Laboratory Comment on above: Labial skin tag Start: 10-27-2024 End: 10-27-2024 Bamboo flowsheet Michele Peterson DO Work Phone: [facility] Start: 10-27-2024 End: 10-27-2024 Bamboo flowsheet Michele Peterson DO Work Phone: [facility] Start: 10-27-2024 End: 10-27-2024 Office outpatient new 30 minutes Sherita Jurado DO Work Phone: [facility] Comment on above: Irregular bowel habi ts (Primary Dx); Family hx of colon cancer Start: 10-27-2024 End: 10-27-2024 ambulatory SHERITA JURADO Not Available Start: 10-27-2024 End: 10-27-2024 Office outpatient new 45 minutes Michele Gayle Nicholas DO Work Phone: [facility] Comment on above: Thyroid nodule (CMS/ HCC) Start: 10-27-2024 End: 10-27-2024 ambulatory MICHELE PETERSON Not Available Start: 09-29-2024 End: 09-29-2024 ambulatory STALIN CLARKE Not Available Start: 09-23-2024 End: 09-23-2024 ambulatory [facility] Start: 09-23-2024 End: 09-23-2024 Encounter for general adult medical examination without abnormal findings [facility] Start: 08-17-2024 End: 08-19-2024 [facility] Start: 08-17-2024 End: 08-19-2024 Subsequent hospital visit by physician Stalin Clarke MD Work Phone: [facility] Comment on above: Chronic lymphocytic thyroiditis Start: 07-09-2024 End: 07-09-2024 ambulatory [facility]SON [facility] Start: 07-02-2024 End: 07-02-2024 [facility] Start: 07-02-2024 End: 07-02-2024 Subsequent hospital visit by physician Carson Salazar MD Work Phone: [facility] Start: 06-18-2024 End: 06-18-2024 ambulatory [facility] Start: 06-18-2024 End: 06-18-2024 Subsequent hospital visit by physician Carson Salazar MD Work Phone: [facility] Start: 05-07-2024 End: 05-07-2024 ambulatory MUMTAZ CHRISTOPHER Not Available Start: 05-06-2024 End: 05-06-2024 ambulatory [facility] Start: 03-05-2024 Office outpatient vi sit 25 minutes Diogenes Spann Other [facility] Office Start: 03-03-2024 End: 03-03-2024 ambulatory [facility] Start: 02-07-2024 End: 02-07-2024 ambulatory MUMTAZ FINLEY Not Available Start: 10-01-2023 End: 10-01-2023 Subsequent hospital visit by physician Carson Salazar MD Work Phone: [facility] Laboratory Comment on above: Low testosterone lev el in female Start: 02-08-2023 Office outpatient vi sit 25 minutes Diogenes Spann Other [facility] Office Start: 01-28-2023 End: 01-28-2023 Subsequent hospital visit by physician Carson Salazar MD Work Phone: [facility] Laboratory Start: 10-10-2022 End: 10-12-2022 Subsequent hospital visit by physician [facility] Room [facility] Ultrasound Comment on above: RUQ pain Start: 08-28-2022 End: 08-28-2022 Patient encounter procedure Carson Salazar MD Work Phone: [facility] Laboratory Start: 08-28-2022 End: 08-28-2022 Subsequent hospital visit by physician Carson Salazar MD Work Phone: [facility] Laboratory Comment on above: Women's annual routi ne gynecological examination Start: 05-24-2022 End: 05-26-2022 Subsequent hospital visit by physician [facility] Ultrasound Room 2 [facility] Ultrasound Comment on above: Lump at site of vacc ination Start: 03-22-2022 End: 03-22-2022 Emergency department patient visit Honorio Shelby MD Work Phone: [facility] ED Comment on above: Cat bite, initial en counter (Primary Dx) Start: 03-14-2022 End: 03-16-2022 Subsequent hospital visit by physician [facility] Ultrasound Room [facility] Ultrasound Comment on above: Infertility associat ed with anovulation Start: 01-23-2022 Office outpatient vi sit 25 minutes Diogenes L Spann Other [facility] Office Start: 01-19-2022 End: 01-19-2022 Subsequent hospital visit by physician Carson Salazar MD Work Phone: [facility] Laboratory Start: 12-30-2021 End: 12-30-2021 Subsequent hospital visit by physician Carson Salazar MD Work Phone: [facility] Laboratory Comment on above: Infertility associat ed with anovulation Start: 12-14-2021 End: 12-16-2021 Subsequent hospital visit by physician Honorio Ultrasound Room [facility] Ultrasound Comment on above: Elevated LFTs; RUQ pain Start: 10-26-2021 End: 10-26-2021 Subsequent hospital visit by physician Carson Salazar MD Work Phone: [facility] Start: 07-11-2021 End: 07-15-2021 Patient encounter status Carson Salazar MD Work Phone: [facility] Start: 07-11-2021 End: 07-15-2021 Subsequent hospital visit by physician Honorio Covid19 Pat Screening Schedule [facility] Comment on above: Endometriosis determ ined by laparoscopy; Pelvic pain; Endometrial thickening on ultrasound; Irregular menses; Essential hypertension, benign; Pre-op testing Preop testing (Prima ry Dx) Start: 05-01-2021 End: 05-01-2021 Subsequent hospital visit by physician Carson Salazar MD Work Phone: [facility] Comment on above: Irregular menses Start: 03-11-2021 End: 03-11-2021 Emergency department patient visit Cassidy Alvarez MD Work Phone: [facility] ED Comment on above: Pain due to dental c benjamin (Primary Dx) Start: 01-26-2021 Office outpatient vi sit 25 minutes Diogenes Spann Other [facility] Office Start: 01-11-2021 End: 01-11-2021 Subsequent hospital visit by physician Carson Salazar [facility] Laboratory Start: 09-20-2020 End: 09-20-2020 Subsequent hospital visit by physician Carson Salazar [facility] Start: 09-08-2020 Patient encounter procedure CARSON Kong:H1 Start: 09-02-2020 End: 09-02-2020 Subsequent hospital visit by physician Lizbet Lr Work Phone: [facility] OR Start: 08-30-2020 End: 08-30-2020 Subsequent hospital visit by physician Carson Salazar [facility] Start: 08-26-2020 End: 08-30-2020 Subsequent hospital visit by physician Honorio Covid19 Pat Screening Schedule [facility] PRE ADMIT Start: 06-17-2020 End: 06-17-2020 Emergency department patient visit Mumtaz Heath Work Phone: [facility] ED Comment on above: Cyst of ovary, unspe cified laterality (Primary Dx); Non-intractable vomiting with nausea, unspecified vomiting type Start: 04-25-2020 End: 04-25-2020 Subsequent hospital visit by physician Carson Salazar [facility] Laboratory Comment on above: Anovulation Start: 04-18-2020 End: 04-20-2020 Subsequent hospital visit by physician [facility] Ultrasound Room [facility] Ultrasound Comment on above: Infertility, female Start: 03-29-2020 End: 03-29-2020 Subsequent hospital visit by physician Carson Salazar [facility] Laboratory 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 ECHO Comment on above: Arrived Start: 01-27-2019 Office outpatient vi sit 25 minutes Diogenes L Spann Other [facility] Office Start: 07-29-2018 Office outpatient ne w 60 minutes Diogenes L Spann Other [facility] Office Procedures Date Procedure Procedure Detail Performing Clinician Start: 02-14-2025 Potassium serum plasma/whole blood Mumtaz Castillo MD Work Phone: Start: 02-14-2025 Assay of magnesium Chri kim Castillo MD Work Phone: Start: 02-14-2025 BASIC METABOLIC PANE L W/ REFLEX TO MG FOR LOW K Mumtaz Castillo MD Work Phone: Start: 02-13-2025 Ct thorax w/contrast material Harpreet Koroma MD Work Phone: Start: 02-13-2025 Comprehensive metabo lic panel Harpreet Koroma MD Work Phone: Start: 01-27-2025 Iadna-dna/rna gi pth gn multiplex probe tq 10-07 Steffi Malenfant ENTRY MANAGER - [employer] Work Phone: Start: 01-11-2025 End: 01-11-2025 Visual field xm uni/bi w/interp extended exam Aden Larissa Adria OD Work Phone: Start: 11-27-2024 Assay of ferritin Noah Salaazr MD Work Phone: Start: 08-17-2024 Us soft tissue head & neck real time imge leann Clarke MD Work Phone: Start: 07-02-2024 Comprehensive metabo lic panel Carson Salazar MD Work Phone: Start: 06-18-2024 Blood count complete auto&auto difrntl wbc Carson Salazar MD Work Phone: Start: 03-05-2024 Most recent diastoli c blood pressure < 80 mm hg Diogenes Spann Start: 03-05-2024 Most recent systolic blood pressure <130 mm hg Diogenes Spann Start: 02-25-2024 Thyroid stimulating hormone measurement Diogenes Spann Start: 02-25-2024 Thyroxine measurement L maria t Spann Start: 10-01-2023 Assay of testosterone free Lizbet Terry Kyleigheb ForemanLr DO Work Phone: Start: 02-08-2023 Docrev cur meds by e lig clin Diogenes Spann Start: 01-28-2023 Assay of thyroid stimulating hormone tsh Diogenes Spann MD Work Phone: Start: 01-23-2023 Thyroid stimulating hormone measurement Diogenes Spann Start: 01-23-2023 Thyroxine measurement L rosebruon Jose Start: 10-10-2022 Us abdominal real ti me w/image limited Carson Salazar MD Work Phone: Start: 08-28-2022 Microscopic observat ion [Identifier] in Cervix by Cyto stain [facility] Start: 03-14-2022 Us transvaginal Lizbet Terry Lr DO Work Phone: Start: 01-26-2022 Thyroid stimulating hormone measurement Diogenes Spann Start: 01-26-2022 Thyroxine measurement L maria t Spann Start: 01-23-2022 Docrev cur meds by e lig clin Diogenes Spann Start: 01-19-2022 Assay of thyroid stimulating hormone tsh Diogenes Spann MD Work Phone: Start: 12-30-2021 Assay of progesterone C nanda Trery Kyleigheb ForemanLr DO Work Phone: Start: 12-14-2021 Us abdominal real ti me w/image limited Carson Salazar MD Work Phone: Start: 10-26-2021 Comprehensive metabo lic panel Carson Salazar MD Work Phone: Start: 07-11-2021 Comprehensive metabo lic panel Lizbet Stewart Kyleigh Lr DO Work Phone: Start: 07-11-2021 COVID-19 Sylvain ceja MD Work Phone: Start: 05-01-2021 Gonadotropin chorion ic quantitative Jesica Cantor ENTRY MANAGER - CN Work Phone: Start: 02-01-2021 Thyroid stimulating hormone measurement Diogenes Spann Start: 02-01-2021 Thyroxine measurement L rosebruno Spann Start: 01-26-2021 Doc meds verified w/ pt or re Diogenes Spann Start: 01-11-2021 Assay of thyroid stimulating hormone tsh Diogenes Spann Work Phone: Start: 01-11-2021 Assay of thyroxine total Diogenes Spann Work Phone: Start: 09-20-2020 Acute hepatitis panel D ouchaz Salazar Work Phone: Start: 09-20-2020 Hepatic function panel Carson Salazar Work Phone: Start: 09-02-2020 Gonadotropin chorion ic qualitative Lizbet Lr Work Phone: Start: 08-30-2020 25 hydroxy includes fractions if performed Carson Salazar Work Phone: Start: 08-30-2020 Assay of free thyroxine Carson Salazar Work Phone: Start: 08-30-2020 Assay of insulin total Carson Salazar Work Phone: Start: 08-30-2020 Assay of iron Carson Salazar Work Phone: Start: 08-30-2020 Assay of magnesium Orion Salazar Work Phone: Start: 08-30-2020 Assay of thyroid stimulating hormone tsh Carson Salazar Work Phone: Start: 08-30-2020 Blood count complete auto&auto difrntl wbc Carson Salazar Work Phone: Start: 08-30-2020 Comprehensive metabo lic panel Carson Salazar Work Phone: Start: 08-26-2020 COVID-19 Sylvain ceja Work Phone: Start: 06-17-2020 Assay of lipase Dylan Heath Work Phone: Start: 06-17-2020 Blood count complete auto&auto difrntl wbc Mumtaz Heath Work Phone: Start: 06-17-2020 Gonadotropin chorion ic qualitative Mumtaz Heath Work Phone: Start: 06-17-2020 Urinalysis microscop ic only Mumtaz Heath Work Phone: Start: 06-17-2020 Urnls dip stick/tabl et rgnt auto w/o microscopy Mumtaz Heath Work Phone: Start: 04-25-2020 Assay of progesterone S pertan Sabina Cantor Work Phone: Start: 04-18-2020 transvaginal Jesica Cantor Work Phone: Start: 03-29-2020 Assay of thyroid stimulating hormone tsh Jesica Cantor Work Phone: Start: 02-01-2020 Doc meds verified w/ pt or re Diogenes Jose Start: 01-28-2020 Thyroid stimulating hormone measurement Diogenes Spann Start: 01-28-2020 Thyroxine measurement L rosebruno Jose Start: 10-21-2019 End: 10-21-2019 Microscopic examination of blood, culture CARSON SALAZAR Comment on above: Performed By: #### S EDR #### [facility] [address] [address] Tamir Nobles Performed By: #### B [id number] #### [facility] [address] [address] Tamir Nobles Start: 02-22-2019 Throat culture Comment on above: Performed By: #### 2 [id number] #### [facility] [address] [place] [address] Start: 01-27-2019 Anti-Thyroid Antibod ies (Anit-TPO & Anti Tg) Diogenes Spann Start: 01-27-2019 Assay of thyroid stimulating hormone tsh Diogenes Spann Start: 01-27-2019 Assay of thyroxine total Diogenes Spann Start: 01-27-2019 Doc meds verified w/ pt or re Diogenes Spann Start: 01-27-2019 Thyroid stimulating hormone measurement Diogenes Spann Start: 01-27-2019 Thyroxine measurement L rosebruno Jose Start: 07-29-2018 Doc meds verified w/ pt or re Diogenes Spann Start: 06-04-2018 Microscopic observat ion [Identifier] in Cervix by Cyto stain Carson Salazar MD Work Phone: Plan of Treatment Date Care Activity Detail Author Start: 03-22-2032 DTaP/Tdap/Td vaccine (2 - Td or Tdap) DTaP/Tdap/Td vaccine (2 - Td or Tdap) [facility] Start: 03-22-2032 Urine microalbumin profile DTaP,Tdap,Td Vaccine (2 - Td or Tdap) [facility] Start: 09-23-2027 Diabetes screen Diabetes screen [facility] Start: 08-28-2027 Screening for malignant neoplasm of cervix [facility] Start: 10-31-2026 Diabetes screen Diabetes screen [facility] Start: 09-28-2025 End: 09-28-2025 Patient encounter procedure 09/28/2025 11:00 AM EST Office Visit [facility] [address] [place] [id number] Stalin Clarke MD [address] [place] [address] [facility] Start: 09-14-2025 End: 09-14-2025 Patient encounter procedure [facility] Part of [facility] Comment on above: yearly Start: 08-28-2025 Screening for malignant neoplasm of cervix Pap smear [facility] Start: 07-20-2025 End: 07-20-2025 Patient encounter procedure 07/20/2025 2:30 PM EDT Office Visit [facility] [address] [place], [place] [id number] Aden Resendez II, OD [address] [place] [address] Pressure check ([employer]) Optometry Comment on above: Pressure check ([employer]) Start: 05-24-2025 End: 05-24-2025 Patient encounter procedure 05/24/2025 2:00 PM EDT Office Visit NOMAaron [place] [address] [place] [phone] Michele Peterson, [address] [place] [address] [facility] Start: 03-05-2025 Assay of thyroid stimulating hormone tsh TSH [facility] Start: 03-05-2025 Assay of thyroxine total T4 [facility] Start: 01-11-2025 End: 01-11-2025 Patient encounter procedure 01/11/2025 2:30 PM EDT Office Visit [facility] [address] [place], [place] [id number] Aden Resendez II, OD [address] [place], [place] [phone] Dilated Fundus Exam, Red Eye Follow Up Optometry Comment on above: Dilated Fundus Exam, Red Eye Follow Up Start: 12-30-2024 End: 12-30-2024 Patient encounter procedure 12/30/2024 3:30 PM EDT Office Visit [facility] [address] [place] [address] Kirsty Martinez, OD [address] [place] [address] RED EYE CHECK Ophthalmology Comment on above: RED EYE CHECK Start: 12-23-2024 End: 12-23-2024 Patient encounter procedure 12/23/2024 3:30 PM EDT Office Visit [facility] [address] [place] [address] Kirsty Martinez, OD [address] [place] [address] conjunctival edema follow up Ophthalmology Comment on above: conjunctival edema follow up Start: 11-24-2024 End: 11-24-2024 Patient encounter procedure 11/24/2024 10:45 AM EST Office Visit [facility] [place] [address] [place] [phone] Michele Peterson, [address] [place] [address] [facility] [place] Start: 11-10-2024 End: 11-10-2024 Patient encounter procedure [facility] Comment on above: Arrived Start: 10-27-2024 End: 10-27-2024 Patient encounter procedure [facility] Comment on above: Thyroid nodule (CMS/HCC) Arrived Start: 09-30-2024 Depression Screen Depression Screen [facility] Start: 09-08-2024 End: 09-08-2024 Patient encounter procedure 09/08/2024 10:15 AM EST Office Visit [facility] [address] [place] [phone] Lizbet Calderon, DO [address] [place], [place] [phone] yearly [facility] Comment on above: yearly Start: 06-14-2024 COVID-19 Vaccine ( season) COVID-19 Vaccine ( season) [facility] Start: 06-14-2024 COVID-19 Vaccine ( season) COVID-19 Vaccine ( season) [facility] Start: 05-14-2024 Influenza vaccination Flu vaccine (#1) [facility] Start: 09-03-2023 End: 09-03-2023 Patient encounter procedure 09/03/2023 Office Visit Obstetrics and Gynecology Lizbet Calderon, DO [address] [place], [place] [phone] [facility] Start: 01-23-2023 Assay of thyroid stimulating hormone tsh TSH [facility] [employer] [facility] Start: 01-23-2023 Assay of thyroxine total T4 [facility] [employer] [facility] Start: 10-26-2022 Creatinine measurement Creatinine monitoring [facility] Start: 10-26-2022 Potassium monitoring Potassium monitoring [facility] Start: 09-20-2022 Creatinine measurement Creatinine monitoring [facility] Start: 09-20-2022 Potassium monitoring Potassium monitoring [facility] Start: 07-11-2022 Creatinine measurement Creatinine monitoring [facility] Work Phone: Start: 07-11-2022 Potassium monitoring Potassium monitoring [facility] Work Phone: Start: 06-14-2022 Influenza vaccination Flu vaccine (#1) [facility]ETTA [facility]CK[facility] Start: 02-12-2022 End: 02-12-2022 Patient encounter procedure 02/12/2022 Office Visit Obstetrics and Gynecology Lizbet Calderon, DO [address] [place] [id number] [facility] Start: 01-26-2022 T4 [Mass/Vol] T4 [employer] Start: 01-26-2022 Thyroid stimulating hormone measurement ASSAY THYROID STIM HORMONE [employer] Start: 01-26-2022 Thyroxine measurement ASSAY OF TOTAL THYROXINE [employer] Start: 01-26-2022 TSH Qn TSH [employer] Start: 08-30-2021 [facility]inine [facility] [place] Start: 08-30-2021 Potassium monitoring [facility] [place] [place] Start: 08-15-2021 End: 08-15-2021 Patient encounter procedure 08/15/2021 Office Visit Obstetrics and Gynecology Lizbet Calderon, [address] [address] [phone] [facility] Start: 07-14-2021 End: 07-14-2021 Admission to same day surgery center 07/14/2021 Surgery IP Unit Lizbet Calderon, [address] [address] [phone] LAPAROSCOPY EXPLORATORY - LYSIS OF ADHESIONS, CHROMOPERTUBATION [facility] Comment on above: LAPAROSCOPY EXPLORATORY - LYSIS OF ADHES IONS, CHROMOPERTUBATION Start: 07-14-2021 Subsequent hospital visit by physician 07/14/2021 Hospital Encounter IP Unit Lizbet Calderon DO [address] [place] [address] [facility] Start: 06-17-2021 Creatinine measurement Creatinine monitoring [place], [place] Start: 06-17-2021 Potassium monitoring Potassium monitoring [place], [place] Start: 06-14-2021 Influenza vaccination Flu vaccine (#1) [facility] Work Phone: Start: 06-04-2021 Cervical cancer screen Cervical cancer screen [place], [place] Start: 06-04-2021 Screening for malignant neoplasm of cervix [facility] Start: 03-29-2021 Depression Screen Depression Screen [facility] Start: 03-29-2021 HIV screening HIV screen [place], [place] Comment on above: Postponed from 2004 (Patient Refus ed) Start: 02-01-2021 Assay of thyroid stimulating hormone tsh ASSAY THYROID STIM HORMONE [employer] Start: 02-01-2021 Assay of thyroxine total ASSAY OF TOTAL THYROXINE [employer] Start: 01-12-2021 End: 01-12-2021 Office Visit 01/12/2021 Office Visit Obstetrics and Gynecology Jesica Cantor, ENTRY MANAGER - CN [address] [place] [address] [place] [address] [facility] Start: 09-20-2020 End: 09-20-2020 Office Visit 09/20/2020 Office Visit Obstetrics and Gynecology Lizbet Calderon DO [address] [place] [address] [facility] Start: 09-02-2020 End: 09-02-2020 Hospital Encounter [facility] Comment on above: DILATATION AND CURETTAGE HYSTEROSCOPY Start: 06-14-2020 Influenza vaccination [place], [place] Start: 04-19-2020 DTaP/Tdap/Td vaccine (1 - Tdap) DTaP/Tdap/Td vaccine (1 - Tdap) [place] Comment on above: Postponed from 2008 (Not Indicated ) Start: 04-19-2020 Varicella vaccine (1 of 2 - 2-dose childhood series) Varicella vaccine (1 of 2 - 2-dose childhood series) [place], [place] Comment on above: Postponed from 1990 (Not Indicated ) Start: 03-19-2020 HIV screen HIV screen [place], [place] Comment on above: Postponed from 2004 (Not Indicated ) Start: 01-28-2020 T4 mass conc T4 [employer] Start: 01-28-2020 Thyrotropin Qn TSH [employer] Start: 11-15-2019 Creatinine measurement Creatinine monitoring [place], [place] Start: 11-15-2019 Potassium monitoring Potassium monitoring [place], [place] Start: 06-14-2019 Influenza vaccination Flu vaccine (#1) [place], [place] Start: 2019 Screening for malignant neoplasm of cervix HPV (without or with Pap) [facility] Start: 2010 Screening for malignant neoplasm of cervix Cervical Cancer Screening [facility] Start: 2008 DTaP/Tdap/Td vaccine (1 - Tdap) DTaP/Tdap/Td vaccine (1 - Tdap) [facility] Start: 2008 Hepatitis B vaccine (1 of 3 - 19+ 3-dose series) Hepatitis B vaccine (1 of 3 - 19+ 3-dose series) [facility] Start: 2007 Anxiety Screening Anxiety Screening [facility] Start: 2007 Depression Screening Depression Screening [facility] Start: 2007 Hepatitis C screening Hepatitis C Screening [facility] Start: 2007 HIV screening HIV Screening [facility] Start: 2005 COVID-19 Vaccine (1) COVID-19 Vaccine (1) [facility] Work Phone: Start: 2004 HIV screening HIV screen [facility] Start: 2002 Varicella Vaccine (1 of 2 - 13+ 2-dose series) Varicella Vaccine (1 of 2 - 13+ 2-dose series) [facility] [employer] Start: 2001 COVID-19 Vaccine (1) COVID-19 Vaccine (1) [facility] [employer] Work Phone: Start: 2001 Depression Screen Depression Screen [facility] Start: 1994 COVID-19 Vaccine (1) COVID-19 Vaccine (1) [facility] Start: 1990 Varicella vaccine (1 of 2 - 2-dose childhood series) Varicella vaccine (1 of 2 - 2-dose childhood series) [facility] Start: 1989 COVID-19 Vaccine (#1) COVID-19 Vaccine (#1) [facility] [email or web address] Start: 1989 Hepatitis B vaccine (1 of 3 - 3-dose series) Hepatitis B vaccine (1 of 3 - 3-dose series) [facility] [employer] End: 02-14-2025 C DIFF TOXIN/ANTIGEN C DIFF TOXIN/ANTIGEN Microbiology Routine 36 Hours Expiring for 36 Hours starting 02/14/2025 until 02/14/2025 [facility] Comment on above: 36 Hours Expiring for 36 Hours starting 02/14/2025 until 02/14/2025 End: 01-27-2025 Calprotectin Stool [facility] [employer] Comment on above: Once for 1 Occurrences starting 01/28/20 25 until 01/27/2025 End: 02-18-2025 CBC W Auto Differential panel - Blood CBC auto differential Lab Routine Daily for 5 Days starting 02/14/2025 until 02/18/2025, 1 completed [facility] Comment on above: Daily for 5 Days starting 02/14/2025 unt il 02/18/2025, 1 completed End: 02-19-2025 Comprehensive metabolic 2000 panel - Serum or Plasma Comprehensive Metabolic Panel Lab Routine Daily for 5 Days starting 02/15/2025 until 02/19/2025 [facility] [employer] Comment on above: Daily for 5 Days starting 02/15/2025 unt il 02/19/2025 End: 08-28-2022 Cytopathology procedure, preparation of smear, genital source PAP SMEAR Lab Routine Women's annual routine gynecological examination 1 Occurrences starting 08/28/2022 until 08/28/2022 [facility] Work Phone: Comment on above: 1 Occurrences starting 08/28/2022 until 08/28/2022 End: 06-23-2019 [id number]-MODE COMPLETE [id number]-[id number]-MODE COMPLETE Echocardiography Routine One Time for 1 Occurrences starting 06/23/2019 until 06/23/2019 [employer] Comment on above: One Time for 1 Occurrences starting 06/14 until 06/23/2019 End: 06-18-2024 Ferritin [Mass/volume] in Serum or Plasma [facility] Comment on above: Once for 1 Occurrences starting 06/18/20 until 06/18/2024 End: 07-02-2024 Ferritin [Mass/volume] in Serum or Plasma [facility] Work Phone: Comment on above: Once for 1 Occurrences starting 07/02/20 until 07/02/2024 Gastrointestinal Forde el, Molecular Gastrointestinal Panel, Molecular Microbiology Routine 01/27/2025 11:01 AM EDT [employer] End: 01-27-2025 H. pylori antigen [facility] Phone: Comment on above: Once for 1 Occurrences starting 01/28/20 until 01/27/2025 End: 08-30-2020 HbA1c (Bld) [Mass fraction] Hemoglobin A1C Lab Routine Once for 1 Occurrences starting 08/30/2020 until 08/30/2020 [employer] Comment on above: Once for 1 Occurrences starting 08/30/20 until 08/30/2020 HbA1c (Bld) [Mass fraction] Hemoglobin A1C Lab Routine 08/30/2020 3:39 PM EST [email or web address] End: 06-18-2024 Iron [Mass/volume] in Serum or Plasma [facility] Work Phone: Comment on above: Once for 1 Occurrences starting 06/18/20 until 06/18/2024 Oxygen therapy [[facility] Data Set] Initiate Oxygen Therapy Protocol Respiratory Care Routine Daily until discontinued starting 09/02/2020 [employer] Comment on above: Daily until discontinued starting 2019 Oxygen therapy [[facility] Data Set] Initiate Oxygen Therapy Protocol Respiratory Care Routine Daily until discontinued starting 02/14/2025 [facility] [employer] Comment on above: Daily until discontinued starting 2024 End: 11-03-2024 Pathology study Surgical Pathology Lab Routine Labial skin tag 1 Occurrences starting 11/03/2024 until 11/03/2024 [facility] [employer] Comment on above: 1 Occurrences starting 11/03/2024 until 11/03/2024 Phase I & II - meter ed glucose Phase I & II - metered glucose Point of Care Testing Routine As Needed until discontinued starting 09/02/2020 [facility] [place] Comment on above: As Needed until discontinued starting Surgical Pathology Surgical Path ology Lab Routine Release Upon Ordering for 1 Occurrences starting 09/02/2020 [facility] [place] Comment on above: Release Upon Ordering for 1 Occurrences starting 09/02/2020 End: 11-03-2024 SURGICAL PATHOLOGY REPORT SURGICAL PATHOLOGY REPORT Lab Routine Once for 1 Occurrences starting 11/03/2024 until 11/03/2024 [facility] [employer] Comment on above: Once for 1 Occurrences starting 11/03/19 until 11/03/2024 End: 08-30-2020 T3, Uptake T3, Uptake Lab Routine Once for 1 Occurrences starting 08/30/2020 until 08/30/2020 [facility] [place] Comment on above: Once for 1 Occurrences starting 08/30/20 until 08/30/2020 T3, Uptake T3, Uptake Lab R outine 08/30/2020 3:39 PM [facility] [employer] [place] End: 08-30-2020 T4 T4 Lab Routine Once for 1 Occurrences starting 08/30/2020 until 08/30/2020 [facility] [place] Comment on above: Once for 1 Occurrences starting 08/30/20 until 08/30/2020 T4 T4 Lab Routine 1 10/30/2019 3:39 PM [facility] [employer] [place], [place] End: 01-19-2022 T4 [employer] Work Phone: Comment on above: Once for 1 Occurrences starting 01/20/20 until 01/19/2022 End: 01-28-2023 T4 [facility] [employer] Work Phone: Comment on above: Once for 1 Occurrences starting 01/29/20 until 01/28/2023 End: 10-01-2023 Testosterone Free and Total, Non-Male Testosterone Free and Total, Non-Male Lab Routine Low testosterone level in female 1 Occurrences starting 10/01/2023 until 10/01/2023 [facility] on above: 1 Occurrences starting 10/01/2023 until 10/01/2023 End: 03-29-2020 Thyroid Peroxidase Antibody Thyroid Peroxidase Antibody Lab Routine Christie's disease 1 Occurrences starting 03/29/2020 until 03/29/2020 [facility] [place] Comment on above: 1 Occurrences starting 03/29/2020 until 03/29/2020 Thyroid Peroxidase Antibody Thyroid Peroxidase Antibody Lab Routine Christie's disease 03/29/2020 11:51 AM EDT [facility] [place] [place] End: 05-24-2022 US EXTREMITY LEFT NON VASC LIMITED [facility] Work Phone: Comment on above: 1 Occurrences starting 05/24/2022 until 05/24/2022 Immunizations Immunization Date Immunization Notes Care Provider Fa [facility] 07-27-2024 influenza, seasonal, injectable, preservative free Michele Peterson DO Work Phone: [facility] 08-11-2023 influenza, injectabl e, quadrivalent, preservative free Carson Salazar MD Work Phone: [facility] 07-19-2022 Seasonal, quadrivale nt, recombinant, injectable influenza vaccine, preservative free Michele Peterson DO Work Phone: [facility] 03-22-2022 tetanus toxoid, redu rafael diphtheria toxoid, and acellular pertussis vaccine, adsorbed Honorio Shelby MD Work Phone: [facility] 06-30-2021 Seasonal, quadrivale nt, recombinant, injectable influenza vaccine, preservative free Michele Carlink DO Work Phone: [facility] 07-30-2020 Seasonal, quadrivale nt, recombinant, injectable influenza vaccine, preservative free Michele Peterson DO Work Phone: [facility] 07-31-2019 Seasonal, quadrivale nt, recombinant, injectable influenza vaccine, preservative free Michele Peterson DO Work Phone: [facility] 07-15-2018 Influenza Vaccine, unspecified formulation [place], [place] 07-15-2018 influenza, seasonal, injectable Michele Peterson DO Work Phone: [facility] 07-01-2018 influenza, injectabl e, quadrivalent, preservative free Carson Salazar MD Work Phone: [facility] 07-01-2018 pneumococcal polysaccharide vaccine, 23 valent Michele Peterson DO Work Phone: [facility] 08-09-2016 influenza, injectabl e, quadrivalent, preservative free Carson Salazar MD Work Phone: [facility] 07-26-2015 influenza, seasonal, injectable, preservative free Michele Peterson DO Work Phone: [facility] Payers Date Payer Category Payer Self-pay 2024 Medicaid [employer] [id number] 2017 Medicaid (Managed Care) [employer] [id number] [facility] xxxxxxxxxxxx 2017-Present [phone] [address] [address] xxxxxxxxxxxx [id number] [facility] [id number] 2017-Present [phone] [address] [address] [id number]. [id number] 1989 Unknown [id number] 2.840.1.783391.3.579.2. 59 1989 Unknown [id number] 2.0.1.967336.3.579.2. 59 1989 Unknown [id number] 2.840.1.845658.3.579.2. 1258 1989 Unknown [id number] 2.840.1.580385.3.579.2. 1258 1989 Unknown [id number] 2.840.1.969197.3.579.2. 1258 1989 Unknown [id number] 2.16840.1.962051.3.579.2. 1258 1989 Unknown [id number] 2.16840.1.534148.3.579.2. 1258 1989 Unknown [id number] 2.16840.1.362062.3.579.2. 1259 1989 Unknown [id number] 2.16840.1.917424.3.579.2. 1259 1989 Unknown [id number] 2.16.840.1.623620.3.579.2. 1259 1989 Unknown [id number] 2.16.840.1.718909.3.579.2. 174 1989 Unknown [id number] 2.16.840.1.930627.3.579.2. 174 1989 Unknown [id number] 2.16.840.1.065352.3.579.2. 174 1989 Unknown [id number] 2.16.840.1.888608.3.579.2. 174 1989 Unknown [id number] 2.16.840.1.528820.3.579.2. 174 1989 Unknown [id number] 2.16.840.1.536227.3.579.2. 174 1989 Unknown [id number] 2.16.840.1.316555.3.579.2. 174 1989 Unknown [id number] 2.16.840.1.580692.3.579.2. 174 1989 Unknown [id number] 2.16.840.1.422282.3.579.2. 173 1989 Unknown [id number] 2.16.840.1.665939.3.579.2. 173 1989 Unknown [id number] 2.16.840.1.380193.3.579.2. 173 1959 Medicaid [id number] 2.16.840.1.289924.3.441 1959 Self-pay [id number] Unknown [id number] 2.16.840.1.073083.3.579.2. 531 Social History Date Type Detail Facility Start: Former smoker [facility] Start: [facility] Start: 03-19-2019 End: 10-01-2023 Tobacco smoking status NHIS Former smoker [place] Start: 07-14-2008 End: 07-14-2018 History of tobacco use Cigarette Smoker [place] Start: 03-19-2019 End: 02-14-2025 Cigarettes smoked current (pack per day) - Reported [facility] Start: 03-19-2019 End: 02-14-2025 Alcohol intake No [facility] [employer] [facility] Start: 1990 Sex Assigned At Not on file [place] Start: 03-29-2020 End: 09-08-2024 Alcohol intake Current non-drinker of alcohol (finding) [place] Start: 03-29-2020 End: 08-28-2022 Tobacco Comment patches [place] Exposure to SARS-CoV -2 (event) Unable to assess [place] Start: 03-29-2020 End: 10-01-2023 Tobacco use and exposure Never used [place] Start: 03-12-2022 End: 03-22-2022 Exposure to SARS-CoV-2 (event) Not sure [place] Start: 1990 Sex Assigned At Female [place] Start: 07-14-2008 End: 07-14-2018 History of tobacco use Current smoker [facility] [employer] Work Phone: Patient Health Questionnaire 9 item (PHQ-9) total score [Reported] 0 [facility] Start: 09-03-2023 Tobacco Comment Still on patches [facility] Start: 06-29-2020 Gender identity Identifies as female gender (finding) [facility] Start: 06-29-2020 Sexual orientation Heterosexual (finding) [facility] Start: 09-14-2024 End: 11-24-2024 Alcoholic beverage intake Ex-drinker (finding) [facility] Start: 02-07-2024 Tobacco Comment use patches daily [facility] Start: 02-07-2024 Alcohol Comment Socially [facility] Tobacco smoking stat us MTIS Unknown if ever smoked [facility] Work Phone: Start: 11-23-2012 End: 11-11-2024 Sex Female (finding) [facility] Has the electric, [employer], [employer], or water company threatened to shut off services in your home in past 12Mo No Bon [employer] (I/We) worried wheth er (my/our) food would run out before (I/we) got money to buy more. Never true [facility] [employer] Clinical Notes 03-11-2021 to 02-14-2025 Lucrecia Medley RN - 02/14/2025 4:59 PM Lucrecia Buck RN - 02/14/2025 4:39 PM Lucrecia Buck RN - 02/14/2025 1:50 PM Brook Herrmann RN - 02/14/2025 3:02 AM EDT Note Date & Type Note Facility 02-14-2025 History of Present illness Narrative Explained discharge instructions to patient at this time. No changes to medications. States she will call PCP for follow up. Verbalized understanding to come back to ER if abdominal pain worsens and follow up with providers for GI. Education provided on abdominal pain and potassium rich diet. Pt verbalized understanding of all instructions. Will be leaving hospital ambulatory with family. Notified Dr Castillo of repeat K+ level and patient status. Discharge order placed by Dr Castillo. Pt tolerated clear liquid diet, ok to upgrade to full liquid per Dr Castillo. Dr Brock at bedside. IV potasium replacement initiated, placed on telemetry for precaution, explained POC to patient and she verbalized understanding. Vitals and assessment completed at this time as charted. Pt resting in bed, reports nausea and indigestion, RN helped patient sit up HOB for relief. Will medicate with morphine for abdominal pain and compazine for nausea. Pt up to bathroom now. Has no had diarrhea. Informed patient on POC for today. Fall precautions in place. Water Taxi Boat Mate gasper served Dr. Castillo that patient was requesting something for nausea other than zofran d/t it giving patient migraines. New orders received. Patient arrived to room from ED, gag writer received report from ED Nurse. Patient arrives to room A/O x4. Patient ambulated to bed and tolerated well. Admission navigator completed and medications reviewed with patient. Vital signs as charted. Patient rates pain 6/10 and gag writer gave pain medications. Patient denies any other needs at this time. Patient resting comfortably. Gripper socks on, Bed locked, call light within reach. documented in this encounter [facility] 02-14-2025 Hospital course Narrative Mumtaz Castillo M.D. 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 female who presented to the ER yesterday for RUQ / epigastric abdominal pain and inability to tolerate PO. She has long h/o chronic RUQ abd pain which is worse after eating, with h/o cholecystectomy. She follows with GI and she just recently underwent EGD and colonoscopy on 02/11/25 at [facility] with biopsies taken. Along with her pain she c/o nausea and vomiting but denies hematemesis. She denies fevers but has been having chills. She also has been having watery diarrhea since her bowel prep 02/10. She has chronic diarrhea for several years and states her BM's are very irregular and always watery. She has not been tolerating PO very well due to her symptoms and has noted decrease urine output over the past couple of days, but denies dysuria, urgency or hematuria. She has been taking Levsin as needed, but does not take frequently because it causes her to be tired. Has tried bentyl in the past w/o significant relief. She states the nausea and inability to keep PO down was the reason she came to the ER yesterday. This morning she is feeling better. The pain is improved. She still feels her stomach flopping around but the nausea has improved. Her last emesis was last night in the ER. She denies any fever or chills this morning. She is tolerating diet. She was seen by Gen Surg who agrees she does not have acute appendicitis. She is cleared by Gen Surg for DC. She already has f/u scheduled with her GI and was encouraged to keep this appt. She was deemed medically stable for discharge and was amenable to the discharge plan. Discharge Exam: GEN: Awake, alert and oriented x3. EYES: EOMI, pupils equal NECK: Supple. No lymphadenopathy. No carotid bruit CVS: regular rate and rhythm, no audible murmur PULM: CTA, no wheezes, rales or rhonchi, no acute respiratory distress ABD: Bowels sounds normal. Abdomen is soft. No distention. no tenderness to palpation. EXT: no edema bilaterally . No calf tenderness. NEURO: Moves all extremities. Motor and sensory are grossly intact SKIN: No rashes. No skin lesions. Consultants: Dr. Brock, General Surgery Procedures: none Complications: none Significant Diagnostic Studies: Complete Blood Count: Recent Labs 02/13/25213902/14/25 0648 WBC 9.9 5.8 RBC 5.30* 4.51 HGB 14.5 12.5 HCT 42.0 35.8* MCV 79.2* 79.4* MCH 27.4 27.7 MCHC 34.5 34.9* RDW 12.9 13.1 PLT 372 268 MPV 10.0 9.8 Comprehensive Metabolic Profile: Recent Labs 02/13/25213902/14/25 0648 02/14/25 1407 NA 140 140 -- K 3.4* 3.0* 3.7 CL 102 104 -- CO2 24 23 -- BUN 13 10 -- CREATININE 0.7 0.6 -- GLUCOSE 89 83 -- CALCIUM 9.8 8.6 -- BILITOT 0.5 -- -- ALKPHOS 69 -- -- AST 55* -- -- ALT 80* -- -- \Lactic Acid: Recent Labs 02/13/252139 LACTA 1.2 Imaging Data: CT CHEST ABDOMEN PELVIS W CONTRAST Additional Contrast? None Result Date: 02/13/2025 EXAMINATION: CT OF THE CHEST, ABDOMEN, [...] and Monica: No mediastinal lymphadenopathy. Normal caliber of the [...] No acute osseous or soft tissue abnormality. 1. No pneumoperitoneum or findings to suggest [...] 2016 Dec-Jan; 40(2):194-200, Urol J spring; 3(2):71-4. Diagnostic Colonoscopy Result Date: 02/11/2025 Table formatting from the original result was not included. Colonoscopy Procedure Note Procedure: Colonoscopy with biopsies Indications: Chronic iron deficiency anemia Chronic diarrhea Sedation: MAC Medications: No administrations occurring from 1328 to 1417 on 02/11/25 Attending Physician: Mich Macedo MD Procedure Details Informed consent was [...] Tissue Large Intestine HISTOLOGY - TISSUE EXAM Mich Macedo MD 02/11/2025 1407 Complications: None Estimated blood loss: Minimal Disposition: Home Condition: stable Impression: Grossly normal colonoscopy with normal terminal ileum examination. Recommendations: Await pathology results Follow up at the GI clinic Attending Attestation: I performed the procedure. EGD Result Date: 02/11/2025 Table formatting from the original result was not included. Esophagogastroduodenoscopy (EGD) Procedure Note Procedure: EGD with biopsies Indications: Chronic diarrhea RUQ pain Sedation: MAC Medications: No administrations occurring from 1328 to 1417 on 02/11/25 Attending Physician: Mich Macedo MD Procedure Details: Informed consent was [...] Small Intestine, Duodenum HISTOLOGY - TISSUE EXAM Mich Macedo MD 02/11/2025 1345 B : Tissue Gastric HISTOLOGY - TISSUE EXAM Mich Macedo MD 02/11/2025 1347 Complications: None Estimated blood loss: Minimal Condition: stable Impression: Mild gastritis Recommendations: Await pathology results Follow up at the GI clinic Proceed with colonoscopy Attending Attestation: I performed the procedure. Discharge Condition: stable Disposition: Discharge home Discharge Medications: Medication List CONTINUE taking these medications amLODIPine 5 MG tablet Commonly known as: NORVASC fluticasone 50 MCG/ACT nasal spray Commonly known as: FLONASE hydrOXYzine pamoate 25 MG capsule Commonly known as: VISTARIL hyoscyamine 0.125 MG sublingual tablet Commonly known as: LEVSIN/SL levothyroxine 137 MCG tablet Commonly known as: SYNTHROID loratadine 10 MG capsule Commonly known as: CLARITIN M- Plus 27-1 MG Tabs Take 1 tablet by mouth daily magnesium oxide 400 MG tablet Commonly known as: MAG-OX metFORMIN 500 MG extended release tablet Commonly known as: GLUCOPHAGE-XR TAKE TWO (2) TABLETS BY MOUTH IN THE MORNING AND TAKE TWO (2) TABLETS BY MOUTH AT BEDTIME nicotine 14 MG/24HR Commonly known as: NICODERM CQ omeprazole 40 MG delayed release capsule Commonly known as: PRILOSEC oxaprozin 600 MG tablet Commonly known as: DAYPRO QUEtiapine 50 MG tablet Commonly known as: SEROQUEL venlafaxine 75 MG extended release capsule Commonly known as: EFFEXOR XR vitamin D 50 MCG (2000 UT) Caps capsule Commonly known as: CHOLECALCIFEROL Patient Instructions: Activity: Activity as tolerated without restrictions Diet: regular diet Wound Care: none needed Follow up with Carson Salazar MD in 1-2 weeks Follow-up with GI in 1-2 weeks as directed CORE MEASURES on Discharge (if applicable) ABEBA/ARB in [place]: N/A ASA in [place]: N/A Statin in [place]: N/A Statin in CVA: N/A Antiplatelet in CVA: N/A Total time spent on discharge services: 40 minutes Including the following activities: Evaluation and Management of patient Discussion with patient and/or surrogate about current care plan Coordination with Case Management and/or Supply Chain Logistics Manager Coordination of care with Consultants (if applicable) Coordination of care with Receiving Facility Physician (if applicable) Completion of DME forms (if applicable) Preparation of Discharge Summary Preparation of Medication Reconciliation Preparation of Discharge Prescriptions Signed: Mumtaz Casitllo MD, M.D. 02/14/2025 4:36 PM documented in this encounter [facility] 02-11-2025 Note Patient: Quyen bose Procedure Summary Date: 02/11/25 Room / Location: [facility] Invasive Surgery [place] Anesthesia Start: 1334 Anesthesia Stop: 1422 Procedures: EGD DIAGNOSTIC COLONOSCOPY Diagnosis: Iron deficiency anemia, unspecified iron deficiency anemia type Chronic diarrhea Chronic abdominal pain Chronic iron deficiency anemia Scheduled Providers: Mich Macedo MD; Nito Granados MD; Jake Lane CRNA Responsible Provider: Nito Granados MD Anesthesia Type: MAC ASA Status: 2 Anesthesia Type: MAC Vitals Value Taken Time BP 127/81 02/11/25 1420 Temp 36.2 ???C (97.2 ???F) 02/11/25 1420 Pulse 98 02/11/25 1420 Resp 16 02/11/25 1420 SpO2 100 % 02/11/25 1420 Anesthesia Post Evaluation Patient location during evaluation: PACU Patient participation: complete - patient participated Level of consciousness: awake Pain score: 1 Pain management: adequate Airway patency: patent Cardiovascular status: acceptable Respiratory status: acceptable Patient is hemodynamically stable and is able to be discharged from PACU per anesthesia protocol. No notable events documented. [facility] 02-11-2025 Note Patient: Quyen bose Procedure Summary Date: 02/11/25 Room / Location: [facility] Anesthesia Start: 1334 Anesthesia Stop: Procedures: EGD DIAGNOSTIC COLONOSCOPY Diagnosis: Iron deficiency anemia, unspecified iron deficiency anemia type Chronic diarrhea Chronic abdominal pain Chronic iron deficiency anemia Scheduled Providers: Mich Macedo MD; Nito Granados MD; Jake Lane CRNA Responsible Provider: Nito Granados MD Anesthesia Type: MAC ASA Status: 2 Anesthesia Post Transport [facility]: face mask Oxygen Flow (L/min): 8 Patient Monitor: direct observation Transport: uneventful Patient condition is: stable [facility] 02-11-2025 Note Patient: Quyen bose Procedure Information Date/Time: 02/11/25 1230 Scheduled providers: Mich Macedo MD; Nito Granados MD; Jake Lane CRNA Procedures: EGD DIAGNOSTIC COLONOSCOPY Location: 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 (+) Hypothyroidism, unspecified GI (+) Gastro-esophageal reflux disease without esophagitis /Renal (+) NAFLD (nonalcoholic fatty liver disease) Neuro/Psych THC use Pulmonary Ex smoker Clinical information reviewed: Tobacco Allergies Meds Med Hx Surg Hx OB Status Past Medical History: Diagnosis Date Anxiety Colitis Depression Diarrhea Endometriosis GERD (gastroesophageal reflux disease) Hypothyroidism NAFLD (nonalcoholic fatty liver disease) Obesity PCOS (polycystic ovarian syndrome) PONV (postoperative nausea and vomiting) Uterine leiomyoma Physical Exam Airway Mallampati: II TM distance: >3 FB Neck ROM: full Cardiovascular - normal exam Dental Comments: Poor dentition, multiple missing molars lower jaw. Pulmonary - normal exam Abdominal Anesthesia Plan ASA 2 MAC The patient is not a current smoker. Patient was not previously instructed to abstain from smoking on day of procedure. Patient did not smoke on day of procedure. intravenous induction Anesthetic plan and risks discussed with patient. Plan discussed with CAA. Additional Equipment Requests [facility] 01-19-2025 Note [facility] Gastroenterolog y New Patient Visit - History & Physical CHIEF COMPLAINT Chief Complaint Patient presents with New Patient irregular bowel habits HISTORY OF PRESENT ILLNESS: Quyen Lewis is a 34 y.o. female w/ pmh of Christie's, Endometriosis, PCOS, HTN, anemia, anxiety and cholecystectomy (2009), presenting for chronic abdominal pain, irregular bowel habits For the past few years, she has suffered with a constant right upper sided abdominal pain, worse with eating, no particular known triggers- all food causes pain. Applying pressure to the area helps. Has some LLQ pain that remains constant. Has intermittent generalized abdominal spasms - especially r/t to BMs and when resting. None of these pains are improved with BMs. Associated with nausea, bloating, acid reflux and difficultly swallowing. In regards to her swallowing, she denies food sticking in her esophagus, she wonders if her difficulty is r/t her thyroid being enlarged- Takes omeprazole 40 mg daily (started 15 years ago), will still need to take TUMs. Breakthrough symptoms are frequent, requiring TUMs frequently. Reports very irregular BMs - always loose to watery. BMs occur at least 5 x per day, worse with eating. Denies any form to her stool. Flares of snotty stools, reports whole pills undigested in her stool. Does endorse coffee ground stools occurring a few months ago, unrelated to her iron tablets which she has been on a few years. Denies hematochezia and UI wt loss. Levsin as needed, does not take frequently because it causes her to be tired. Has tried bentyl in the past w/o significant relief. Reported GI history includes right sided inflammation on imaging - was dx w/ colitis passed on imaging in the past. Prior history of endometriosis removed from bowel, was unable to move her bowels. Family history of CRC in paternal great grandpa, maternal grandpa esophageal cancer PREVIOUS LABS/IMAGING/ENDOSCOPY: None LABORATORY DATA: CBC: No results found for: WBC , RBC , HGB , HCT , MCV , RDW , PLT PT/INR No results found for: PT , INR BMP: No results found for: NA , K , CL , BUN , CREATININE , EGFR , GLU LFTs: No results found for: BILITOT , BILIDIR , ALKPHOS , GGT , AST , ALT , ALBUMIN , PROT Celiac Serology: No results found for: TTGA , IGA B12/Folate/Iron studies: No results found for: [id number] , FOLATE , IRON , TIBC , UIBC , IRONSAT , FERRITIN IBD Biomarkers No results found for: CRP No results found for: SEDRATE Viral Hepatitis No results found for: HEPAIGM , HAV , HEPBSAG , HEPBSAB , HEPBEAB , HEPBIGM , HEPBCAB , HEPBCOREAB , HBVNAT , HCVSCR , HEPCAB , HCVNAT , HCVPCR , HCVTMA No results found for: GGT Liver Workup No results found for: SMOOTHMUSCAB , MITOAB No results found for: MOISÉS , SMOOTHMUSCAB , CERULOPLSM , [id number] , TTGA , IGA , TSH , FREET4 , AFP No results found for: TSH , [id number] , [id number] , THYROIDAB Pancreatitis No results found for: AMYLASE , LIPASE , TRIG , CALCIUM No results found for: HIV1X2 HISTORY: Problem list: Patient Active Problem List Diagnosis Anemia Anxiety Colitis Endometrial thickening on ultrasound Endometriosis Endometriosis of left fallopian tube Gastro-esophageal reflux disease without esophagitis Christie's disease High blood pressure 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 No pertinent past medical history. Past Surgical History: History reviewed. No pertinent surgical history. FAMILY HISTORY: No family history on file. SOCIAL HISTORY: Social History Tobacco Use Smoking status: Former Types: Cigarettes Smokeless tobacco: Never Vaping Use Vaping status: Every Day Substances: Nicotine Substance Use Topics Alcohol use: Not Currently Drug use: Never ALLERGIES: Latex, Beta-blockers (beta-adrenergic blocking agts), Diltiazem, and Ondansetron Current Medications: Current Outpatient Medications: amLODIPine (Norvasc) 5 mg tablet, Take 1 tablet by mouth twice a day., Disp: , Rfl: azelastine (Optivar) 0.05 % ophthalmic solution, Administer 1 drop into affected eye(s) twice a day., Disp: , Rfl: cholecalciferol, vitamin D3, 50 mcg (2,000 unit) capsule, Take 1 capsule by mouth in the morning., Disp: , Rfl: fluticasone (Flonase) 50 mcg/actuation nasal spray, 1 spray by Does not apply route in the morning., Disp: , Rfl: hydrOXYzine pamoate (Vistaril) 25 mg capsule, Take by mouth., Disp: , Rfl: hyoscyamine 0.125 mg dissolvable tablet, , Disp: , Rfl: levothyroxine (Synthroid, Levoxyl) 137 mcg tablet, Take 137 mcg by mouth in the morning., Disp: , Rfl: loratadine 10 mg capsule, Take 1 cap (more content not included)... [facility] 01-11-2025 Note Date of Procedure 01/11/2025. Rail Layer Information Cooperative Manager: sk. Start time: 3:10 PM. Stop time: 3:19 PM. Reliability Right Eye Borderline. Left Eye Good. Interpretation Right Eye Non-specific defect. Left Eye Normal. Interval Change Right Eye Initial. Left Eye Initial. Notes Monitor [facility] 01-11-2025 Note Date of Procedure 01/11/2025. Rail Layer Information Cooperative Manager: sk. Start time: 3:19 PM. Stop time: 3:21 PM. Quality Right Eye Good. Left Eye Good. NFL Interpretation Right Eye Normal. Left Eye Normal. Ganglion Cell Layer Thickness Right Eye Temporal loss. Left Eye Temporal loss. Interval Change Right Eye Initial. Left Eye Initial. Notes Monitor [facility] 01-11-2025 Note Date of Procedure 01/11/2025. Rail Layer Information Cooperative Manager: sk. Start time: 3:21 PM. C/D Ratio Right Eye 0.45. Left Eye 0.55. Disc Right Eye Cupping. Left Eye Cupping. Macula Right Eye Normal. Left Eye Normal. Periphery Right Eye Normal. Left Eye Normal. Notes Monitor [facility] 01-11-2025 Instructions Aden Resendez II, OD - 01/11/2025 3:09 PM EDT Assessment and Plan H40.053 Ocular hypertension, bilateral (primary encounter diagnosis) Comment: Continue observation with recheck of Intraocular pressure in 6 months. Steroid responder? H10.13 Allergic conjunctivitis of both eyes Comment: Recommend Optivar 1 gt both eyes twice a day as needed for relief of reported ocular allergy symptoms. H52.13 Myopia, bilateral Comment: Recommend glasses to maximize visual performance at distance. I have confirmed and edited as necessary the relevant HPI, ophthalmic history, ROS, and the neuro exam findings as obtained by others. I have seen and examined Quyen Dias Kolby. I have discussed the case and the management of this patient's care with the Resident/Fellow, if applicable. I also have reviewed and agree with the assessment and plan as stated above and agree with all of its relevant components. documented in this encounter [facility] 01-11-2025 Note HNO ID: [id number] Author: ADEN RESENDEZ II, OD Service: ? Author Type: MANUFACTURING DESIGN ENGINEER Type: Progress Notes Filed: 01/11/2025 16:00 Note Text: Assessment and Plan H40.053 Ocular hypertension, bilateral (primary encounter diagnosis) Comment: Continue observation with recheck of Intraocular pressure in 6 months. Steroid responder? H10.13 Allergic conjunctivitis of both eyes Comment: Recommend Optivar 1 gt both eyes twice a day as needed for relief of reported ocular allergy symptoms. H52.13 Myopia, bilateral Comment: Recommend glasses to maximize visual performance at distance. I have confirmed and edited as necessary the relevant HPI, ophthalmic history, ROS, and the neuro exam findings as obtained by others. I have seen and examined Quyen Dias Kolby. I have discussed the case and the management of this patient's care with the Resident/Fellow, if applicable. I also have reviewed and agree with the assessment and plan as stated above and agree with all of its relevant components. [facility] 01-11-2025 History of Present illness Narrative Assessment and Plan H40.053 Ocular hypertension, bilateral (primary encounter diagnosis) Comment: Continue observation with recheck of Intraocular pressure in 6 months. Steroid responder? H10.13 Allergic conjunctivitis of both eyes Comment: Recommend Optivar 1 gt both eyes twice a day as needed for relief of reported ocular allergy symptoms. H52.13 Myopia, bilateral Comment: Recommend glasses to maximize visual performance at distance. I have confirmed and edited as necessary the relevant HPI, ophthalmic history, ROS, and the neuro exam findings as obtained by others. I have seen and examined Quyen Lewis. I have discussed the case and the management of this patient's care with the Resident/Fellow, if applicable. I also have reviewed and agree with the assessment and plan as stated above and agree with all of its relevant components. documented in this encounter [facility] 12-30-2024 Note HNO ID: [id number] Author: KIRSTY MARTINEZ OD Service: ? Author Type: MANUFACTURING DESIGN ENGINEER Type: Progress Notes Filed: 12/30/2024 15:56 Note Text: ASSESSMENT/PLAN: 1. Conjunctival edema, bilateral - ICD9: 372.73, ICD10: H11.423 (primary diagnosis) 2. Dry eye syndrome of bilateral lacrimal glands - ICD9: 375.15, ICD10: H04.123 Symptoms have improved since last visit. Start to taper Pred Forte: twice a day x 2 days in both eyes, then once a day in both eyes x 2 days, then stop. Discontinue Vigamox. Recommend over the counter artificial tears twice a day, or more as needed for dry/ tired eyes. Good brands of tears are Systane, Refresh, Soothe, Blink, or Thereatears. Avoid drops for red eyes . Preservative free tears are best when using more than four times per day. Recommend taking breaks from computer/phone every 20-30 minutes, and to remember to blink when using electronics. Recommend over the counter allergy drops Alaway or Zaditor twice a day, or Pataday once a day throughout allergy season for itchy eyes. Cool compresses as needed for comfort, and avoid itching or rubbing eyes. 3. Ocular hypertension, bilateral - ICD9: 365.04, ICD10: H40.053 - No family history of glaucoma - Steroid responder, so Pred Forte is being discontinued. - Monitor intraocular pressure at next visit and consider baseline testing as needed. Return to clinic with changes to vision, otherwise follow up 2 weeks in [place] to check refraction, intraocular pressure, and possible baseline glaucoma testing if needed. Kirsty Martinez, OD December 30, 2024 3:54 PM [facility] 12-30-2024 History of Present illness Narrative ASSESSMENT/PLAN: 1. Conjunctival edema, bilateral - ICD9: 372.73, ICD10: H11.423 (primary diagnosis) 2. Dry eye syndrome of bilateral lacrimal glands - ICD9: 375.15, ICD10: H04.123 Symptoms have improved since last visit. Start to taper Pred Forte: twice a day x 2 days in both eyes, then once a day in both eyes x 2 days, then stop. Discontinue Vigamox. Recommend over the counter artificial tears twice a day, or more as needed for dry/ tired eyes. Good brands of tears are Systane, Refresh, Soothe, Blink, or Thereatears. Avoid drops for red eyes . Preservative free tears are best when using more than four times per day. Recommend taking breaks from computer/phone every 20-30 minutes, and to remember to blink when using electronics. Recommend over the counter allergy drops Alaway or Zaditor twice a day, or Pataday once a day throughout allergy season for itchy eyes. Cool compresses as needed for comfort, and avoid itching or rubbing eyes. 3. Ocular hypertension, bilateral - ICD9: 365.04, ICD10: H40.053 - No family history of glaucoma - Steroid responder, so Pred Forte is being discontinued. - Monitor intraocular pressure at next visit and consider baseline testing as needed. Return to clinic with changes to vision, otherwise follow up 2 weeks in [place] to check refraction, intraocular pressure, and possible baseline glaucoma testing if needed. Kirsty Martinez, KRISTIN December 30, 2024 3:54 PM documented in this encounter [facility] 12-30-2024 Instructions Kirsty Martinez, OD - 12/30/2024 3:36 PM EDT Start to taper Pred Forte: twice a day x 2 days in both eyes, then once a day in both eyes x 2 days, then stop. Discontinue Vigamox. Recommend over the counter artificial tears twice a day, or more as needed for dry/ tired eyes. Good brands of tears are Systane, Refresh, Soothe, Blink, or Thereatears. Avoid drops for red eyes . Preservative free tears are best when using more than four times per day. Recommend taking breaks from computer/phone every 20-30 minutes, and to remember to blink when using electronics. Recommend over the counter allergy drops Alaway or Zaditor twice a day, or Pataday once a day throughout allergy season for itchy eyes. Cool compresses as needed for comfort, and avoid itching or rubbing eyes. Return to clinic with increase in symptoms, otherwise monitor yearly. documented in this encounter [facility] 12-23-2024 Note HNO ID: [id number] Author: KIRSTY MARTINEZ, KRISTIN Service: ? Author Type: MANUFACTURING DESIGN ENGINEER Type: Progress Notes Filed: 12/23/2024 16:08 Note Text: ASSESSMENT/PLAN: 1. Conjunctival edema, bilateral - ICD9: 372.73, ICD10: H11.423 Redness has improved, but itchiness remains in both eyes. Increase Pred forte to four times a day in both eyes x 7 days. Continue with Vigamox four times a day in both eyes x 7 days, then stop. Recommend over the counter artificial tears twice a day, or more as needed for dry/ tired eyes. Good brands of tears are Systane, Refresh, Soothe, Blink, or Thereatears. Avoid drops for red eyes . Preservative free tears are best when using more than four times per day. Recommend taking breaks from computer/phone every 20-30 minutes, and to remember to blink when using electronics. Return to clinic with increase in symptoms, otherwise monitor 1 week with red eye check and dilated fundus exam. Kirsty Martinez, KRISTIN December 23, 2024 4:07 PM [facility] 12-23-2024 History of Present illness Narrative ASSESSMENT/PLAN: 1. Conjunctival edema, bilateral - ICD9: 372.73, ICD10: H11.423 Redness has improved, but itchiness remains in both eyes. Increase Pred forte to four times a day in both eyes x 7 days. Continue with Vigamox four times a day in both eyes x 7 days, then stop. Recommend over the counter artificial tears twice a day, or more as needed for dry/ tired eyes. Good brands of tears are Systane, Refresh, Soothe, Blink, or Thereatears. Avoid drops for red eyes . Preservative free tears are best when using more than four times per day. Recommend taking breaks from computer/phone every 20-30 minutes, and to remember to blink when using electronics. Return to clinic with increase in symptoms, otherwise monitor 1 week with red eye check and dilated fundus exam. Kirsty Martinez OD December 23, 2024 4:07 PM documented in this encounter [facility] 12-23-2024 Instructions Kirsty Martinez, OD - 12/23/2024 3:57 PM EDT Increase Pred forte to four times a day in both eyes x 7 days. Continue with Vigamox four times a day in both eyes x 7 days, then stop. Recommend over the counter artificial tears twice a day, or more as needed for dry/ tired eyes. Good brands of tears are Systane, Refresh, Soothe, Blink, or Thereatears. Avoid drops for red eyes . Preservative free tears are best when using more than four times per day. Recommend taking breaks from computer/phone every 20-30 minutes, and to remember to blink when using electronics. Return to clinic with increase in symptoms, otherwise monitor as needed. documented in this encounter [facility] 12-18-2024 Note HNO ID: [id number] Author: KIRSTY MARTINEZ OD Service: ? Author Type: MANUFACTURING DESIGN ENGINEER Type: Progress Notes Filed: 12/18/2024 09:22 Note Text: ASSESSMENT/PLAN: 1. Conjunctival edema, bilateral - ICD9: 372.73, ICD10: H11.423 Discontinue Maxitrol solution Both Eyes, may be experiencing an allergic reaction. Current Ophthalmic Meds prednisoLONE acetate (PRED FORTE) 1 % ophthalmic suspension Use 1 Drop in both eyes two times a day. moxifloxacin (VIGAMOX) 0.5 % ophthalmic solution Use 1 Drop in both eyes four times daily. I have confirmed and edited as necessary the relevant HPI, ophthalmic history, ROS, and the neuro exam findings as obtained by others. I have seen and examined Quyen Lewis. I have discussed the case and the management of this patient's care with the Resident/Fellow, if applicable. I also have reviewed and agree with the assessment and plan as stated above and agree with all of its relevant components. Kirsty Martinez OD December 18, 2024 9:22 AM [facility] 12-18-2024 History of Present illness Narrative ASSESSMENT/PLAN: 1. Conjunctival edema, bilateral - ICD9: 372.73, ICD10: H11.423 Discontinue Maxitrol solution Both Eyes, may be experiencing an allergic reaction. Current Ophthalmic Meds prednisoLONE acetate (PRED FORTE) 1 % ophthalmic suspension Use 1 Drop in both eyes two times a day. moxifloxacin (VIGAMOX) 0.5 % ophthalmic solution Use 1 Drop in both eyes four times daily. I have confirmed and edited as necessary the relevant HPI, ophthalmic history, ROS, and the neuro exam findings as obtained by others. I have seen and examined Quyen Lewis. I have discussed the case and the management of this patient's care with the Resident/Fellow, if applicable. I also have reviewed and agree with the assessment and plan as stated above and agree with all of its relevant components. Kirsty Martinez OD December 18, 2024 9:22 AM documented in this encounter [facility] 11-24-2024 History of Present illness Narrative HPI Patient presents today following FNA of a right thyroid nodule. This initially was Center Line III, benign. Afirma testing however shows that it is benign with a less than 4 percent chance of malignancy. It is sizable, approaching 4 cm. Relevant postoperative physical examination Unremarkable Assessment/plan Quyen was seen today for thyroid nodule. Diagnoses and all orders for this visit: Thyroid nodule (CMS/HCC) (Primary) Comments: I recommended repeating the ultrasound in my office in 6 months. The patient does have some globus sensation from this. When I see her back in 6 months if she is still having that issue we may discuss a lobectomy. documented in this encounter [facility] 11-10-2024 History of Present illness Narrative Subjective Patient ID: HUGO Presents today for FNA of a right inferior thyroid nodule, informed consent was obtained. Review of Systems ROS The specialty specific review of systems is noncontributory except for that recorded in the intake questionnaire and /or described in the history of present illness. Objective ENT Physical Exam Physical Exam Constitutional: Appearance: Normal appearance. HENT: Head: Atraumatic. Ears: External ear shows no abnormality Bilateral ear canals are clear Tympanic membranes intact, no evidence of middle ear fluid or other pathology. Nose: External nose appears to be normal Nares patent. Septal deviation to the No evidence of polyp, mass or pus bilaterally. Oral Cavity: No evidence of trismus Lips appear normal Dental Tongue of normal size and configuration, floor of mouth mucosa clear. Buccal mucosa shows no evidence of ulceration, mass or other abnormality Hard palate soft palate mucosa intact with no evidence of mass, ulceration or other abnormality Uvula of normal size and configuration Oropharynx: Tonsils Posterior pharyngeal wall Neck: No evidence of palpable abnormality Thyroid without evidence of thyromegaly or mass. No cervical lymphadenopathy present. Cardiovascular: Rate and Rhythm: Normal rate and regular rhythm. . Skin: General: Skin is warm and dry. Neurological: General: No focal deficit present. Mental Status: alert and oriented to person, place, and time. ULTRASOUND GUIDED FNA Thyroid gland was palpated. The _ right inferior thyroid nodule be biopsied have been identified by ultrasound.The skin was cleaned with alcohol. The skin above the nodule was anesthetized with an injection of 1% xylocaine with epi. The patient was asked not to talk or swallow during the procedure. A fine gauge biopsy needle was inserted under US visualization and multiple passes were taken. Aspiration of thyroid nodule was performed and material was prepared for both slides and cell block. Three individual passes were made. Material was also obtained for possible molecular testing. Assessment/Plan Quyen was seen today for thyroid nodule. Diagnoses and all orders for this visit: Thyroid nodule (CMS/HCC) (Primary) Comments: Patient tolerated procedure without complication, I will see her back in 2 weeks to discuss pathology documented in this encounter [facility] 10-27-2024 History of Present illness Narrative Subjective Patient ID: HPI Patient is a 34-year-old female referred for right-sided thyroid nodule. Patient had seen a previous brake reliner to never ordered a thyroid ultrasound. She recently underwent a thyroid ultrasound revealing a 2.7 cm nodule in the right thyroid lobe. Patient can feel the nodule. No pertinent family history of thyroid disorder, no personal risk factors for thyroid cancer. Laboratory work is within normal limits. Review of Systems ROS The specialty specific review of systems is noncontributory except for that recorded in the intake questionnaire and /or described in the history of present illness. Objective ENT Physical Exam Physical Exam Constitutional: Appearance: Normal appearance. HENT: Head: Atraumatic. Ears: External ear shows no abnormality Bilateral ear canals are clear Tympanic membranes intact, no evidence of middle ear fluid or other pathology. Nose: External nose appears to be normal Nares patent. Septal deviation to the left No evidence of polyp, mass or pus bilaterally. Oral Cavity: No evidence of trismus Lips appear normal Dental good Tongue of normal size and configuration, floor of mouth mucosa clear. Buccal mucosa shows no evidence of ulceration, mass or other abnormality Hard palate soft palate mucosa intact with no evidence of mass, ulceration or other abnormality Uvula of normal size and configuration Oropharynx: Tonsils small Posterior pharyngeal wall normal Neck: No evidence of palpable abnormality Thyroid without evidence of thyromegaly or mass. No cervical lymphadenopathy present. Cardiovascular: Rate and Rhythm: Normal rate and regular rhythm. . Skin: General: Skin is warm and dry. Neurological: General: No focal deficit present. Mental Status: alert and oriented to person, place, and time. THYROID ULTRASOUND EXAMINATION Indication: Thyroid nodule After informed consent was obtained the patient was placed supine on the examining table. Patient was asked to extend the neck. Topical ultrasound jelly was used. The right lobe of the thyroid gland measures __ 4.5 cm in greatest dimension. Occupying a good portion of the lobe was a well demarcated hypoechoic nodule with mild internal vascularity but no calcification measuring 2.9 cm in greatest dimension. The isthmus is unremarkable. The left lobe of the thyroid gland measures _ 3.5 cm greatest dimension. Heterogeneous parenchyma, no identifiable nodular mass There is no adenopathy in the central compartment. There is no appreciable adenopathy in either lateral neck. Assessment/Plan Quyen was seen today for thyroid nodule. Diagnoses and all orders for this visit: Thyroid nodule ([facility]) Comments: The right-sided nodule should be biopsied to rule out malignancy. Orders: - Ambulatory referral to ENT We will get that approved by insurance and performed the procedure in the office in the near future. documented in this encounter [facility] 03-11-2021 History of Present illness Narrative Ice pack provided for pain to right lower face documented in this encounter [facility] Phone: 03-11-2021 Hospital Discharge instructions Cassidy Alvarez MD - 03/11/2021 Please add Tylenol to Toradol as needed. Apply topical lidocaine every 2-3 hours but do not swallow residual. The following attachments cannot be sent through Care Everywhere.Tooth Decay ([place]auritian)documented in this encounter [facility] Phone: Evaluation note Diagnosis Pain due to dental caries- Primary documented in this encounter [facility] Phone: evaluation note* Diagnosis Irregular menses Irregular menstrual cycle documented in this encounter [facility] Phone: evaluation note* Diagnosis Endometriosis determined by laparoscopy Pelvic pain Endometrial thickening on ultrasound Irregular menses Irregular menstrual cycle Essential hypertension, benign Pre-op testing Preoperative examination, unspecified documented in this encounter [facility] Phone: [email or web address] note* Diagnosis Preop testing- Primary Preoperative examination, unspecified documented in this encounter [facility] Phone: evallyptuc note* Diagnosis Elevated LFTs Other abnormal blood chemistry RUQ pain Abdominal pain, right upper quadrant documented in this encounter [facility] Phone: evaluation note* Diagnosis 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 documented in this encounter [facility] Phone: [email or web address] note* Diagnosis 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 documented in this encounter [facility] Phone: evaluation note* Diagnosis Cat bite, initial encounter- Primary documented in this encounter [facility] Phone: evaluation note* Diagnosis Lump at site of vaccination documented in this encounter [facility] Phone: [email or web address] note* Diagnosis Women's annual routine gynecological examination documented in this encounter [facility] Phone: evaluation note* Diagnosis RUQ pain Abdominal pain, right upper quadrant documented in this encounter [facility] Phone: evaluation note* Diagnosis Low testosterone level in female Unspecified endocrine disorder documented in this encounter [facility] note* Diagnosis Chronic lymphocytic thyroiditis documented in this encounter [facility] note* Diagnosis Thyroid nodule (CMS/HCC) Nontoxic uninodular goiter [facility] Diagnosis Irregular bowel habits- Primary Family hx of colon cancer Family history of malignant neoplasm of gastrointestinal tract [facility]* Diagnosis Labial skin tag Other specified noninflammatory disorder of vulva and perineum [facility] Diagnosis Thyroid nodule (CMS/HCC)- Primary Nontoxic uninodular goiter [facility] noteNo assessment information availableThe [facility] Work Phone: Evaluation note* Diagnosis Conjunctival edema, bilateral- Primary documented in this encounter [facility] note* Diagnosis Conjunctival edema, bilateral- Primary documented in this encounter [facility] note* Diagnosis Conjunctival edema, bilateral- Primary Dry eye syndrome of bilateral lacrimal glands Tear film insufficiency, unspecified Ocular hypertension, bilateral Borderline glaucoma with ocular hypertension documented in this encounter [facility] note* Diagnosis Ocular hypertension, bilateral- Primary Borderline glaucoma with ocular hypertension Allergic conjunctivitis of both eyes Other chronic allergic conjunctivitis Myopia, bilateral Myopia documented in this encounter [facility] note* Diagnosis Acute abdominal pain- Primary Abdominal pain, unspecified site Abdominal pain, right lower quadrant Acute appendicitis with generalized peritonitis without gangrene, perforation, or abscess Possible early acute appendicitis Appendicitis, unqualified Gastro-esophageal reflux disease without esophagitis Esophageal reflux 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 female presents for discussion of possible colonoscopy. She had an EGDand c-scope in 2016 for cyclic abdominal pain and to work up possible IBS vs a IBD. She said she does not remember if she officially had gotten a diagnosis but did not continue to follow up with themdue to preferences. She has had 2 pelvic surgeries for endometriosis. She was told by her COMMUNICATIONS SENIOR ASSOCIATE that there was endometrial implants all over her bowel. She only takes metformin for her endometriosis. She says her maternal grandfather had esophageal cancer and her paternal grandmother had a colostomy bag but she is unsure why and her paternal grandfather had colon cancer later in life. She states that she had a cholecystectomy. She has RUQ fullness and pain at random times. She doesn't associate it with any specific food. She complains that she always has loose stools that are non bloody. Sometimes when her stomach is upset she will have mucous stools. She has a history of reflux which she said is well managed currently on her PPI. She denies any current abdominal pain. Denies melena or hematochezia. Denies hx of unplanned weight loss. Denies fevers, chills, or sweats. Denies nausea or vomiting. She is interested in seeing a gasoline plant operator other then her previous provider in [place]. We discussed that she could have a colonoscopy by me but that the GI provider would likely want toconduct their own. She would like to wait to have a c-scope and possible EGD with the GI providers. SUBJECTIVE: MEDICATIONS: ALLERGIES Current Outpatient Medications Medication Instructions amLODIPine (Norvasc) 5 MG tablet cholecalciferol (Vitamin D-3) 50 MCG (1999) capsule 1 capsule, Daily fluticasone (Flonase) 50 MCG/ACT nasal spray 1 spray, Daily levothyroxine (SYNTHROID, LEVOXYL) 137 mcg, Oral, Nightly Loratadine 10 MG capsule 1 capsule, Daily magnesium oxide (Mag-Ox) 400 mg tablet 1 tablet, 2 times daily metFORMIN XR (Glucophage-XR) 500 MG 24 hr tablet TAKE TWO (2) TABLETS BY MOUTH IN THE MORNING AND AT BEDTIME nicotine (Nicoderm, Step 2) 14 MG/24HR patch 1 patch omeprazole (PriLOSEC) [address] capsule 1 capsule, Daily oxaprozin (Daypro) 600 MG tablet Iihrpm-XlGut-Ixbow-Ca-[place] 3 ( + Complete Multi) 18-0.8 & 290 MG therapy as directed Orally QUEtiapine (SEROquel) 50 MG tablet venlafaxine XR (Effexor XR) 150 MG 24 hr tablet Vistaril 25 MG capsule 4 capsule at bedtime as needed Orally Once a day prn Allergies Allergen Reactions Latex Anaphylaxis, Rash, Shortness of breath and Swelling Diltiazem Beta Adrenergic Blockers Rash Ondansetron Headache and Other Migraines PAST MEDICAL HISTORY: SOCIAL HISTORY SURGICAL HISTORY: Past Medical History: Diagnosis Date Anemia Anxiety Autoimmune thyroiditis (CMS/HCC) Colitis Diabetes mellitus (CMS/HCC) Dietary counseling and surveillance Endometriosis GERD (gastroesophageal reflux disease) Christie's disease (CMS/HCC) Hypertension (CMS/HCC) Liver disease Migraines (CMS/HCC) Obesity with body mass index (BMI) of 30.0 to 39.9 PCOS (polycystic ovarian syndrome) Verruca Vitamin D deficiency Social History Tobacco Use Smoking status: Former Current packs/day: 0.25 Average packs/day: 0.3 packs/day for 10.0 years (2.5 ttl pk-yrs) Types: Cigarettes Smokeless tobacco: Never Tobacco comments: use patches daily Substance Use Topics Alcohol use: Not Currently Comment: Socially Drug use: Never Past Surgical History: Procedure Laterality Date ANKLE FRACTURE SURGERY Left CHOLECYSTECTOMY DILATION AND CURETTAGE OF UTERUS x 2 FRACTURE SURGERY Left 3 pins OVARIAN CYST REMOVAL Left SALPINGECTOMY Left SHOULDER ARTHROSCOPY Right Family History Problem Relation Name Age of Onset Hyperlipidemia Mother Riya Osteoporosis Mother Riya Rashes / Skin problems Mother Riya Severe sprains Mother Riya Dislocations Father Candido Severe sprains Father Candido Bipolar disorder Father Candido Schizophrenia Father Candido Diabetes Brother Pavan Cancer Maternal Grandmother Enedina Cancer Maternal Grandfather Ray Ulcerative colitis Maternal Grandfather Ray Diabetes Paternal Grandfather Bakari Heart failure Paternal Grandfather Bakari Hypertension Paternal Grandfather Bakari Allergies Allergen Reactions Latex Anaphylaxis, Rash, Shortness of breath and Swelling Diltiazem Beta Adrenergic Blockers Rash Ondansetron Headache and Other Migraines Past Surgical History: Procedure Laterality Date ANKLE FRACTURE SURGERY Left CHOLECYSTECTOMY DILATION AND CURETTAGE OF UTERUS x 2 FRACTURE SURGERY Left 3 pins OVARIAN CYST REMOVAL Left SALPINGECTOMY Left SHOULDER ARTHROSCOPY Right Tobacco Use: Medium Risk (10/27/2024) Patient History Smoking Tobacco Use: Former Smokeless Tobacco Use: Never Passive Exposure: Not on file Alcohol Use: Not on file Depression: Not at risk (09/30/2023) Re[facility] from [facility] PHQ-2 PHQ-9 Total Score: 0 Physical Activity: Not on file REVIEW OF SYMPTOMS: Review of Systems All other systems reviewed and are negative. 10 systems were reviewed. Positives noted above. Remainder are negative per CMS guidelines. OBJECTIVE: Visit Vitals Smoking Status Former Physical Exam Vitals reviewed. General: AAOx3, NAD Head: atraumatic normocephalic Neck: trachea midline. No masses or lymphadenopathy Heart: Regular rate and rhythm Lungs: equal chest rise and fall, non labored breathing Abdomen: soft, nontender, and non distended Ext: motor 5/5 all extremities with no gross deformities Psych: alert and oriented, behavior appropriate ASSESSMENT AND PLAN: Assessment/Plan Diagnoses and all orders for this visit: Irregular bowel habits - Ambulatory referral to Gastroenterology; Future Family hx of colon cancer - Ambulatory referral to Gastroenterology; Future Plan: Referral to gastroenterology for workup of irritable bowel syndrome and or inflammatory bowel disease. Thank you, K Christiano Jurado DO [facility]* Attachments The following attachments cannot be sent through Care Everywhere. * Bites: Animal (Mauritian) [facility]: [facility] Discharge instructions* Attachments The following attachments cannot be sent through Care Everywhere. * Abdominal Pain (Mauritian) * Potassium-Rich Diet (Mauritian) [facility] Directives No Advanced Directives Records FoundDocuments on File Type Date Recorded Patient Risk Specialist Expl anation Advance Directives and Living Will Power of Leasing Manager Latest Code Status on File Code Status Date Activated Date Inactivated Comments Full Code 07/21/2018 9:23 AM 07/21/2018 3:54 PM Documents on File Type Date Recorded Patient Risk Specialist Expl anation Advance Directives and Living Will Power of Leasing Manager Latest Code Status on File Code Status Date Activated Date Inactivated Comments Full Code 07/21/2018 9:23 AM 07/21/2018 3:54 PM Documents on File Type Date Recorded Patient Risk Specialist Expl anation ACP-Advance Directive ACP-Power of Leasing Manager Documents on File Type Date Recorded Patient Risk Specialist Expl anation ACP-Advance Directive ACP-Power of Leasing Manager Latest Code Status on File Code Status Date Activated Date Inactivated Comments Full Code 09/02/2020 7:25 AM Full Code 07/21/2018 9:23 AM 07/21/2018 3:54 PM Latest Code Status on File Code Status Date Activated Date Inactivated Comments Full Code 09/02/2020 7:25 AM 09/02/2020 2:12 PM Full Code 07/21/2018 9:23 AM 07/21/2018 3:54 PM Latest Code Status on File Code Status Date Activated Date Inactivated Comments Full Code 07/14/2021 9:57 AM 07/14/2021 2:19 PM Full Code 09/02/2020 7:25 AM 09/02/2020 2:12 PM Latest Code Status on File Code Status Date Activated Date Inactivated Comments Full Code 07/14/2021 9:57 AM 07/14/2021 2:19 PM Full Code 09/02/2020 7:25 AM 09/02/2020 2:12 PM Latest Code Status on File Code Status Date Activated Date Inactivated Comments Full Code 07/14/2021 9:57 AM 07/14/2021 2:19 PM Code Status History Code Status Date Activated Date Inactivated Comments Full Code 09/02/2020 7:25 AM 09/02/2020 2:12 PM Full Code 07/21/2018 9:23 AM 07/21/2018 3:54 PM Date Activated Date Inactivated Comments 07/14/2021 9:57 AM 07/14/2021 2:19 PM Date Activated Date Inactivated Comments 09/02/2020 7:25 AM 09/02/2020 2:12 PM Date Activated Date Inactivated Comments 07/21/2018 9:23 AM 07/21/2018 3:54 PM Date Activated Date Inactivated Comments 07/14/2021 9:57 AM 07/14/2021 2:19 PM Date Activated Date Inactivated Comments 09/02/2020 7:25 AM 09/02/2020 2:12 PM Date Activated Date Inactivated Comments 07/21/2018 9:23 AM 07/21/2018 3:54 PM Date Activated Date Inactivated Comments 02/14/2025 1:55 AM Date Activated Date Inactivated Comments 07/14/2021 9:57 AM 07/14/2021 2:19 PM Date Activated Date Inactivated Comments 09/02/2020 7:25 AM 09/02/2020 2:12 PM Date Activated Date Inactivated Comments 07/21/2018 9:23 AM 07/21/2018 3:54 PM Summary Purpose Family History No Family History Records FoundNo Family History Records FoundNo Family History Records FoundNo Family History Records FoundNo Family History Records FoundNo Family History Records FoundNo Family History Records FoundNo Family History Records Found Reason for Referral Status Reason Specialty Diagnoses / Procedures Referre d By Contact Referred To Contact Closed Radiology Diagnoses Infertility, female Procedures US Non OB Transvaginal Jesica Cantor, ENTRY MANAGER - CNM [address] [place] [address] Specialty Diagnoses / Procedures Referred By Contac t Referred To Contact Radiology Diagnoses Elevated LFTs RUQ pain Procedures US ABDOMEN LIMITED Carson Salazar MD [address] [place] [address] Referral ID Status Reason Start Date Expiration Date V isits Requested Visits Authorized [id number] Authorized 12/05/2021 12/05/2022 2 2 Specialty Diagnoses / Procedures Referred By Contac t Referred To Contact Radiology Diagnoses Infertility associated with anovulation Procedures US Non OB Transvaginal Lizbet Calderon, DO [address] [place] [address] Referral ID Status Reason Start Date Expiration Date Visits Re quested Visits Authorized [id number] Closed 03/06/2022 03/06/2023 1 1 Specialty Diagnoses / Procedures Referred By Contac t Referred To Contact Radiology Diagnoses RUQ pain Procedures [place] [address] [place] [id number] Referral ID Status Reason Start Date Expiration Date Visits Re quested Visits Authorized [id number] Closed 10/05/2022 10/05/2023 1 1 Specialty Diagnoses / Procedures Referred By Contac t Referred To Contact Radiology Diagnoses Chronic lymphocytic thyroiditis Procedures US THYROID Stalin Clarke MD [address] [place] [address] Referral ID Status Reason Start Date Expiration Date Visits Re quested Visits Authorized [id number] Open 08/13/2024 08/13/2025 1 1 Assessments Diagnosis Infertility, female Female infertility of unspecified origin Diagnosis Anovulation Female infertility associated with anovulation Diagnosis Cyst of ovary, unspecified laterality Non-intractable vomiting with nausea, unspecified vomiting type Diagnosis Endometrial thickening on ultrasound Diagnosis Christie's disease Chronic lymphocytic thyroiditis Discharge Instructions * Attachments The following attachments cannot be sent through Care Everywhere. * Ovarian Cyst: Hemorrhagic (Mauritian) * Nausea and Vomiting (Mauritian) documented in this encounter* Instructions* Felicity Mazariegos RN - 09/02/2020 SAME DAY SURGERY DISCHARGE INSTRUCTIONS 1. Do not drive or operate hazardous machinery for 24 hours. 2. Do not make important personal or business decisions for 24 hours. 3. Do not drink alcoholic beverages for 24 hours. 4. Do not smoke tobacco products for 24 hours. 5. Eat light foods (Jell-O, soups, etc....) and drink plenty of fluids (water, Sprite, etc...) up to 8 glasses per day, as you can tolerate. 6. Limit your activities for 24 hours. Do not engage in heavy work until your surgeon gives you permission. 7. Notify your doctor immediately of any of the following: Excessive swelling of, or around the wound area. Redness. Temperature of 100 degrees (F) or above. Excessive pain. Unable to urinate or empty bladder 4-6 hours after surgery. Excessive bleeding at incision site. 8. Call your surgeon for any questions regarding your surgery. POST-OPERATIVE INSTRUCTIONS Activity as tolerated; may shower and change dressings/landon pad as needed. Pain medication to be taken as directed for discomfort. No sexual relations, douches, tampons, tub baths, swimming in ponds/pools, or hot tubs for 2 weeks or until seen by the doctor for your follow-up appointment. May have some vaginal drainage for 1-2 weeks, call if excessive. Call the office at [phone] ([place]) [phone] ([place]) for an appointment in 2 weeks. documented in this encounter History of Present Illness * Felicity Mazariegos RN - 09/02/2020 10:05 AM EST Pt requests to use restroom prior to discharge, ambulates slow and steady with 1 person assist, voids without difficulty but does report a small amount of burning, states there is a small amount of bloody drainage, ambulates to wheelchair and brought out to s/o's vehicle for discharge. * Felicity Mazariegos RN - 09/02/2020 10:04 AM EST Patient verbalizes readiness for discharge. Discharge instructions given to patient and responsibleadult, answered all questions, and verbalized understanding of discharge instructions. Discharge Criteria Inpatients must meet Criteria 1 through 7. All other patients are either YES or N/A. If a NO is chosen then Anesthesia or Surgeon must be notified. 1. Minimum 30 minutes after last dose of sedative medication, minimum 120 minutes after last dose of reversal agent. Yes 2. Systolic BP stable within 20 mmHg for 30 minutes & systolic BP between 90 & 180 or within 10 mmHg of baseline. Yes 3. Pulse between 60 and 100 or within 10 bpm of baseline. Yes 4. Spontaneous respiratory rate >/= 10 per minute. Yes 5. SaO2 >/= 95 or >/= baseline. Yes 6. Able to cough and swallow or return to baseline function. Yes 7. Alert and oriented or return to baseline mental status. Yes 8. Demonstrates controlled, coordinated movements, ambulates with steady gait, or return to baseline activity function. Yes 9. Minimal or no pain or nausea, or at a level tolerable and acceptable to patient. Yes 10. Takes and retains oral fluids as allowed. Yes 11. Procedural / perioperative site stable. Minimal or no bleeding. Yes 12. If GI endoscopy procedure, minimal or no abdominal distention or passing flatus. N/A 13. Written discharge instructions and emergency telephone number provided. Yes 14. Accompanied by a responsible adult. Yes OR * Asha Wolf RN - 08/24/2020 2:32 PM EST Patient instructed on the pre-operative, intra-operative, and post-operative process. Patient instructed on NPO status. Medication instructions and Pre operative instruction sheet reviewed over the phone. Instructed pt to take labetalol, synthroid, and prilosec with a small sip of water prior to arriving to the hospital the day of surgery and to remove nicotine patch prior to arriving the day of surgery. OR * Asha Wolf RN - 08/24/2020 9:53 AM EST Attempted PAT phone call; no answer; message left to return PAT phone call. Asha Peña RN - 08/23/2020 10:12 AM EST Attempted PAT phone call; no answer; message left to return PAT phone call. * Asah Wolf RN - 08/22/2020 10:50 AM EST Attempted PAT phone call; no answer; message left to return PAT phone call. documented in this encounter Additional Source Comments Reason for Visit (unrecogniz ed section and content) Status Reason Specialty Diagnoses / Procedures Referred By Contact Referred To Contact Closed Echocardiography Diagnoses Dyspnea, unspecified Procedures HC 2D ECHO WITHOUT CONTRAST - WITH DOP/COLOR FLOW Carson Salazar MD [address] [place] [address] [facility] [address] [place] [address] Status Reason Specialty Diagnoses / Procedures Referre d By Contact Referred To Contact Closed Radiology Diagnoses Infertility, female Procedures US Non OB Transvaginal Jesica Cantor, ENTRY MANAGER - CNM [address] [place] [address] Reason Comments Emesis Pt has been vomiting since last night; left sided abdominal pain. Pt has known left ovarian cyst. Abdominal Pain Status Reason Specialty Diagnoses / Procedures Referre d By Contact Referred To Contact Diagnoses Endometrial hyperplasia ENDOMETRIAL HYPERPLASIA, UTERINE FIBROID Procedures MT HYSTEROSCOPY,W/ENDO BX DILATATION AND CURETTAGE HYSTEROSCOPY Lizbet Calderon DO [address] [place] [address] [facility] Reason Comments Dental Pain right lower Specialty Diagnoses / Procedures Referred By Angelica t Referred To Contact Radiology Diagnoses Elevated LFTs RUQ pain Procedures US ABDOMEN LIMITED Carson Salazar MD [address] [place] [address] Referral ID Status Reason Start Date Expiration Date V isits Requested Visits Authorized [id number] Authorized 12/05/2021 12/05/2022 2 2 Specialty Diagnoses / Procedures Referred By Contac t Referred To Contact Radiology Diagnoses Infertility associated with anovulation Procedures US Non OB Transvaginal Lizbet Calderon Terry, DO [address] [place] [address] Referral ID Status Reason Start Date Expiration Date Visits Re quested Visits Authorized [id number] Closed 03/06/2022 03/06/2023 1 1 Reason Comments Animal Bite inside cat bit her a nd she has bilateral index fingers swelling and pain. Specialty Diagnoses / Procedures Referred By Contac t Referred To Contact Radiology Diagnoses Lump at site of vaccination Procedures US EXTREMITY LEFT NON VASC LIMITED US EXTREMITY JOINT LEFT NON VASC COMPLETE Pinky Romero [address] [place] [address] Referral ID Status Reason Start Date Expiration Date Visits Re quested Visits Authorized [id number] Closed 05/23/2022 05/23/2023 1 1 Specialty Diagnoses / Procedures Referred By Contac t Referred To Contact Radiology Diagnoses RUQ pain Procedures [place] [address] [place] [id number] Referral ID Status Reason Start Date Expiration Date Visits Re quested Visits Authorized [id number] Closed 10/05/2022 10/05/2023 1 1 Specialty Diagnoses / Procedures Referred By Contac t Referred To Contact Radiology Diagnoses Chronic lymphocytic thyroiditis Procedures US THYROID Stalin Clarke MD [address] [place] [address] Referral ID Status Reason Start Date Expiration Date Visits Re quested Visits Authorized [id number] Open 08/13/2024 08/13/2025 1 1 Reason Comments Thyroid Nodule New Patient : thyroi d nodule Specialty Diagnoses / Procedures Referred By Contac t Referred To Contact Otolaryngology Diagnoses Thyroid nodule (CMS/HCC) Procedures MT OFFICE/OUTPATIENT [facility] Stalin Clarke MD [address] [place] [address] Phone: tel: fax: Michele Peterson, DO [address] [place] [address] Phone: tel: fax: Referral ID Status Reason Start Date Expiration Date V isits Requested Visits Authorized [id number] Closed Specialty Services Required 09/29/2024 03/28/2025 1 1 Reason Comments Colonoscopy Pt presents today fo r a colonoscopy consult. Pt denies/admits to: admits to having a colonoscopy before. Last colonoscopy was in 2015 and it was normal. Pt admits to abdominal pain. Pt denies rectal bleeding. Pt denies changes in bowel movements. Pt admits to a family history of colon cancer that they know of. Reason Comments Thyroid Nodule FNA Reason Comments Thyroid Nodule FNA results Reason Comments Eye Lid Swelling Left upper eyelid fo r 2 days with redness Eye Itching Left Eye For 2 days Reason Comments Conjunctival edema Both eyes Reason Comments Red Eye Both Eyes Reason Comments Glaucoma Evaluation Reason Comments Abdominal Pain Specialty Diagnoses / Procedures Referred By Contlon t Referred To Contact Diagnoses Appendicitis Mumtaz Castillo MD [address] [place] [address] Phone: tel: fax: [facility] [address] [place] [address] Referral ID Status Reason Start Date Expiration Date Visits Re quested Visits Authorized [id number] INFORMATION SOURCE (unrecogn ized section and content) DATE CREATED AUTHOR 08/04/2019 [facility] DATE CREATED AUTHOR AUTHOR'S ORGANIZ ATION 09/08/2020 [facility] DATE CREATED AUTHOR AUTHOR'S ORGANIZ ATION 11/25/2024 [facility] DATE CREATED AUTHOR AUTHOR'S ORGANIZ ATION 11/26/2024 [facility] DATE CREATED AUTHOR AUTHOR'S ORGANIZ ATION 01/12/2025 [facility] DATE CREATED AUTHOR AUTHOR'S ORGANIZ ATION 02/01/2025 [facility] DATE CREATED AUTHOR AUTHOR'S ORGANIZ ATION 02/18/2025 [facility] DATE CREATED AUTHOR AUTHOR'S ORGANIZ ATION 02/19/2025 [facility] Ordered Prescriptions (unrec ognized section and content) Prescription Sig Dispensed Refills Start Date End Da te ketorolac (TORADOL) 10 MG tablet Take 1 tablet by mouth every 6 hours as needed for Pain Do not use with other NSAIDs. May add Tylenol for pain relief. 20 tablet 0 03/11/2021 clindamycin (CLEOCIN) 300 MG capsule Take 1 capsule by mouth 3 times daily for 7 days 21 capsule 0 03/11/2021 03/18/2021 Prescription Sig Dispensed Refills Start Date End Da te naproxen (NAPROSYN) 500 MG tablet Take 1 tablet by mouth 2 times daily 30 tablet 0 03/22/2022 amoxicillin-clavulanate (AUGMENTIN) 875-125 MG per tablet Take 1 tablet by mouth 2 times daily for 10 days 20 tablet 0 03/22/2022 04/01/2022 Scheduled Active and Recently Administ ered Medications (unrecognized section and content) Medication Order 03/09/2021 03/10/2021 03/11/2021 lidocaine viscous hcl (XYLOCAINE) 2 % solution 15 mL (COMPLETED) 15 mL, Mouth/Throat, ONCE, On 03/11/21 at 1115, For 1 dose, Apply topically Every 2-3 hours 1113 (Given - Provid er: Beth Esquivel RN) oxyCODONE-acetaminophen (PERCOCET) 5-325 MG per tablet 1 tablet (COMPLETED) 1 tablet, Oral, ONCE, On 03/11/21 at 1115, For 1 dose, Maximum dose of acetaminophen is 4000 mg from all sources in 24 hours. 1114 (Given - Provid er: Beth Esquivel RN) Scheduled Medication Order 03/20/2022 03/21/2022 03/22/2022 amoxicillin-clavulanate (AUGMENTIN) 500-125 MG per tablet 1 tablet (COMPLETED) Dose in mg is based on amoxicillin component., 1 tablet, Oral, ONCE, 1 dose, On Fozia 03/22/22 at 2015, Antimicrobial Indications: Skin and Soft Tissue Infection 2008 (Given - Provid er: Rashid Pardo RN) Scheduled Medication Order 02/12/2025 02/13/2025 02/14/2025 cefTRIAXone (ROCEPHIN) 1,000 mg in sterile water 10 mL IV syringe (COMPLETED) 1,000 mg, IntraVENous, ONCE, On 02/14/25 at 0115, For 1 dose, Administer as slow IV Push over 5 mins Reconstitute 1 g vials with 9.6 mL of designated diluent to produce a 100 mg/mL solution. 0125 (Given - Provid er: Lina Aguilera RN) diphenhydrAMINE (BENADRYL) injection 25 mg (COMPLETED) 25 mg, IntraVENous, ONCE, 1 dose, On 02/13/25 at 2215, IV Push at rate not to exceed 25 mg/min. 2212 (Given - Provider: Lina Aguilera RN) metroNIDAZOLE (FLAGYL) 500 mg in 0.9% NaCl 100 mL IVPB premix (COMPLETED) 500 mg, IntraVENous, ONCE, 1 dose, On 02/14/25 at 0115, Antimicrobial Indications: Intra-Abdominal Infection 0131 (New Bag - Provider: Lina Aguilera RN)0231 (Stopped - Provider: Aracely Wolff RN) morphine sulfate (PF) injection 4 mg (COMPLETED) 4 mg, IntraVENous, ONCE, 1 dose, On 02/13/25 at 2215, If oral and IV narcotics ordered, use oral first and only use IV if oral is ineffective or cannot take oral. Do Not give oral and IV within 1 hour of each other unless specifically ordered. 2211 (Given - Provider: Lina Aguilera RN) prochlorperazine (COMPAZINE) injection 10 mg (COMPLETED) 10 mg, IntraVENous, ONCE, 1 dose, On 02/13/25 at 2215, If administering IV push, administer at a maximum rate of 5 mg/minute. Patients should remain lying down following administration and be reassessed for relief of nausea and presence of hypotension. Patients should be assisted the first time they get up after administration. 2214 (Given - Provider: Lina Aguilera RN) sodium chloride 0.9 % bolus 1,000 mL (COMPLETED) 1,000 mL (10.3 mL/kg), IntraVENous, at 495.9 mL/hr, Administer over 121 Minutes, ONCE, On 02/13/25 at 2215, For 1 dose 2215 (New Bag - Provider: Lina Aguilera RN) 0000 (Stopped - Provider: Lina Aguilera RN) sodium chloride flush 0.9 % injection 10 mL 10 mL, IntraVENous, EVERY 12 HOURS SCHEDULED (2 times per day), First dose on 02/14/25 at 0900, Until Discontinued 0841 (Not Given - Provider: Lucrecia Medley RN - Reason: IV Fluid Infusing)2100 (Due) Continuous Medication Order 02/12/2025 02/13/2025 02/14/2025 0.9 % sodium chloride infusion (CANCELED) IntraVENous, at 100 mL/hr, CONTINUOUS, Starting on 02/14/25 at 0115 0123 (New Bag - Prov ider: Lina Aguilera RN) 0.9 % sodium chloride infusion IntraVENous, at 75 mL/hr, CONTINUOUS, Starting on 02/14/25 at 0215, For 24 hours, Complete last bag that is running at 24 hours and then saline lock IV 0250 (Rate/Dose Hernandez ge - Provider: Aracely Wolff RN)1644 (Stopped - Provider: Lucrecia Medley RN) PRN Medication Order 02/12/2025 02/13/2025 02/14/2025 0.9 % sodium chloride infusion IntraVENous, at 5-250 mL/hr, PRN, if patient receiving piggyback infusions and maintenance fluids are not ordered OR KVO fluids to protect IV site / prevent frequent line interruptions/ long duration, Starting on 02/14/25 at 0155, For piggyback infusion, administer at same rate as piggyback for a total of 25 mL. Enter 25 mL into dose field and piggyback rate into rate field of order. If piggyback is infusing at a rate less than 100 mL/hr, enter 25 mL into dose field and 100 mL/hr into rate field of order. For KVO fluids, enter rate of 20 mL/hr or less into rate field of order. acetaminophen (TYLENOL) suppository 650 mg(Linked Group 1) 650 mg, Rectal, EVERY 6 HOURS PRN, Starting on 02/14/25 at 0155, Until Discontinued, Pain Mild (1-3), allowed for higher pain score per patient request, Fever, For temp greater than 100.4 F (38 C), Administer if oral route cannot be used. acetaminophen (TYLENOL) tablet 650 mg(Linked Group 1) 650 mg, Oral, EVERY 6 HOURS PRN, Starting on 02/14/25 at 0155, Until Discontinued, Pain Mild (1-3), allowed for higher pain score per patient request, Fever, For temp greater than 100.4 F (38 C), Maximum dose of acetaminophen is 4000 mg from all sources in 24 hours. iopamidol (ISOVUE-370) 76 % injection 75 mL (COMPLETED) 75 mL, IntraVENous, IMG ONCE PRN, 1 dose, Starting on 02/13/25 at 2234, Until 02/13/25 at 2236, Other 2236 (Given - Provider: Shell Adams) morphine (PF) injection 2 mg 2 mg, IntraVENous, EVERY 2 HOURS PRN, Starting on 02/14/25 at 0155, Until 02/17/25 at 0154, Pain Moderate (4-6), allowed for higher pain score per patient request, If oral and IV narcotics ordered, use oral first and only use IV if oral is ineffective or cannot take oral. Do Not give oral and IV within 1 hour of each other unless specifically ordered. 0249 (Given - Provid er: Brook Santiago RN)0714 (Given - Provider: Lucrecia Medley, FAINA) polyethylene glycol (GLYCOLAX) packet 17 g 17 g, Oral, DAILY PRN, Starting on 02/14/25 at 0155, Until Discontinued, Constipation, First line therapy for constipation potassium bicarb-citric acid (EFFER-K) effervescent tablet 40 mEq(Linked Group 2) 40 mEq, Oral, PRN, Starting on 02/14/25 at 0155, Until Discontinued, Per Potassium Replacement Protocol, Administer as alternative if patient unable to tolerate oral tablet. K Lab Replacement Action 3.1 to 3.5 40 mEq ORAL x 1 Under 3.1 Refer to IV replacement protocol Recheck K level in AM. Protocol not for use in patients with CrCl less than 30 mL/min. Do not chew or crush. Dissolve flavored tablets completely in 3 to 4 ounces of cold water; unflavored tablets may be dissolved in 3 to 4 ounces of cold juice. Patient to sip slowly over a 5 to 10 minute period. May further dilute if GI adverse effects occur. 8338 (See Alternativ e - Provider: Lucrecia Medley RN)0939 (See Alternative - Provider: Lucrecia Medley RN)1044 (See Alternative - Provider: Lucrecia Medley RN)1148 (See Alternative - Provider: Lucrecia Medley RN)1251 (See Alternative - Provider: Lucrecia Medley RN)1355 (See Alternative - Provider: Lucrecia Medley RN) potassium chloride (KLOR-CON M) extended release tablet 40 mEq(Linked Group 2) 40 mEq, Oral, PRN, Starting on 02/14/25 at 0155, Until Discontinued, Potassium Replacement, May give alternative linked oral order (ordered as effervescent, packet, or liquid solution) if patient unable to tolerate tablet. K Lab Replacement Action 3.1 to 3.5 40 mEq ORAL x 1 Under 3.1 Refer to IV replacement protocol Recheck K level in AM. Protocol not for use in patients with CrCl less than 30 mL/min. Do not crush, chew, or suck on tablet. Tablet may also be broken in half and each half swallowed separately. 0838 (See Alternativ e - Provider: Lucrecia Medley RN)0939 (See Alternative - Provider: Lucrecia Medley RN)1044 (See Alternative - Provider: Lucrecia Medley RN)1148 (See Alternative - Provider: Lucrecia Medley RN)1251 (See Alternative - Provider: Lucrecia Medley RN)1355 (See Alternative - Provider: Lucrecia Medley RN) potassium chloride 10 mEq/100 mL IVPB (Peripheral Line)(Linked Group 2) 10 mEq, IntraVENous, PRN, Starting on 02/14/25 at 0155, Until Discontinued, at 100 mL/hr, Potassium Replacement, K Lab Replacement Action 2.7 to 3.0 10 mEq IVPB x 6 doses (60 mEq Total) Under 2.7 CALL PROVIDER and administer 10 mEq IVPB x 6 doses (60 mEq Total) Infuse at 10 mEq/hr. Repeat Potassium lab 1 hour after final administration. Protocol not for use in patients with CrCl less than 30 mL/min. 0838 (New Bag - Provider: Lucrecia Medley RN)0939 (New Bag - Provider: Lucrecia Medley RN)1044 (New Bag - Provider: Lucrecia Medley RN)1148 (New Bag - Provider: Lucrecia Medley RN)1251 (New Bag - Provider: Lucrecia eMdley RN)1355 (New Bag - Provider: Lucrecia Medley RN) prochlorperazine (COMPAZINE) injection 10 mg 10 mg, IntraVENous, EVERY 6 HOURS PRN, Starting on 02/14/25 at 0400, Until Discontinued, Nausea, If administering IV push, administer at a maximum rate of 5 mg/minute. Patients should remain lying down following administration and be reassessed for relief of nausea and presence of hypotension. Patients should be assisted the first time they get up after administration. 0714 (Given - Provid er: Lucrecia Medley RN) sodium chloride flush 0.9 % injection 10 mL 10 mL, IntraVENous, PRN, Starting on 02/14/25 at 0155, Until Discontinued, Line Care, After every IV line use Linked Groups Order Group 1: acetaminophen (TYLENOL) tablet 650 mgJump to med 650 mg, Oral, EVERY 6 HOURS PRN, Starting on 02/14/25 at 0155, Until Discontinued, Pain Mild (1-3), allowed for higher pain score per patient request, Fever, For temp greater than 100.4 F (38 C), Maximum dose of acetaminophen is 4000 mg from all sources in 24 hours. Or acetaminophen (TYLENOL) suppository 650 mgJump to med 650 mg, Rectal, EVERY 6 HOURS PRN, Starting on 02/14/25 at 0155, Until Discontinued, Pain Mild (1-3), allowed for higher pain score per patient request, Fever, For temp greater than 100.4 F (38 C), Administer if oral route cannot be used. Group 2: potassium chloride (KLOR-CON M) extended release tablet 40 mEqJump to med 40 mEq, Oral, PRN, Starting on 02/14/25 at 0155, Until Discontinued, Potassium Replacement, May give alternative linked oral order (ordered as effervescent, packet, or liquid solution) if patient unable to tolerate tablet. K Lab Replacement Action 3.1 to 3.5 40 mEq ORAL x 1 Under 3.1 Refer to IV replacement protocol Recheck K level in AM. Protocol not for use in patients with CrCl less than 30 mL/min. Do not crush, chew, or suck on tablet. Tablet may also be broken in half and each half swallowed separately. Or potassium bicarb-citric acid (EFFER-K) effervescent tablet 40 mEqJump to med 40 mEq, Oral, PRN, Starting on 02/14/25 at 0155, Until Discontinued, Per Potassium Replacement Protocol, Administer as alternative if patient unable to tolerate oral tablet. K Lab Replacement Action 3.1 to 3.5 40 mEq ORAL x 1 Under 3.1 Refer to IV replacement protocol Recheck K level in AM. Protocol not for use in patients with CrCl less than 30 mL/min. Do not chew or crush. Dissolve flavored tablets completely in 3 to 4 ounces of cold water; unflavored tablets may be dissolved in 3 to 4 ounces of cold juice. Patient to sip slowly over a 5 to 10 minute period. May further dilute if GI adverse effects occur. Or potassium chloride 10 mEq/100 mL IVPB (Peripheral Line)Jump to med 10 mEq, IntraVENous, PRN, Starting on 02/14/25 at 0155, Until Discontinued, at 100 mL/hr, Potassium Replacement, K Lab Replacement Action 2.7 to 3.0 10 mEq IVPB x 6 doses (60 mEq Total) Under 2.7 CALL PROVIDER and administer 10 mEq IVPB x 6 doses (60 mEq Total) Infuse at 10 mEq/hr. Repeat Potassium lab 1 hour after final administration. Protocol not for use in patients with CrCl less than 30 mL/min. Care Teams (unrecognized sec tion and content) Supervisor Brine Relationship Specialty Start Date End Date Carson Salazar MD [address] [id number] PCP - General 10/22/13 Supervisor Brine Relationship Specialty Start Date End Date Carson Salazar MD [address] [id number] PCP - General 10/22/13 Supervisor Brine Relationship Specialty Start Date End Date Carson Salazar MD [address] [place] [facility] [place] [address] PCP - General 10/22/13 Supervisor Brine Relationship Specialty Start Date End Date Carson Salazar MD [address] [place] [address] PCP - General 10/22/13 Supervisor Brine Relationship Specialty Start Date End Date Carson Salazar MD [address] [place] [address] PCP - General 10/22/13 Supervisor Brine Relationship Specialty Start Date End Date Carson Salazar MD [address] [place] [facility] [place] [address] PCP - General 10/22/13 Supervisor Brine Relationship Specialty Start Date End Date Carson Salazar MD [address] [place] [address] PCP - General 10/22/13 Supervisor Brine Relationship Specialty Start Date End Date Carson Salazar MD [address] [place] [address] PCP - General 10/22/13 Supervisor Brine Relationship Specialty Start Date End Date Carson Salazar MD [address] [place] [address] PCP - General 10/22/13 Supervisor Brine Relationship Specialty Start Date End Date Carson Salazar MD [address] [place] [address] PCP - General 10/22/13 Supervisor Brine Relationship Specialty Start Date End Date Carson Salazar MD [address] [place] [address] PCP - General 10/22/13 Supervisor Brine Relationship Specialty Start Date End Date Carson Salazar MD [address] [place] [address] PCP - General 10/22/13 Supervisor Brine Relationship Specialty Start Date End Date Carson Salazar MD [address] [place] [facility] [place] [address] PCP - General Family Medicine 02/07/24 Stalin Clarke MD [address] [place] [address] Referring Physician Endocrinology 10/27/24 Michele Peterson DO [address] [place] [address] Otolaryngology 10/27/24 Supervisor Brine Relationship Specialty Start Date End Date Carson Salazar MD [address] [place] [address] PCP - General Family Medicine 02/07/24 Stalin Clarke MD [address] [place] [address] Referring Physician Endocrinology 10/27/24 Michele Peterson DO [address] [place] [address] Otolaryngology 10/27/24 Supervisor Brine Relationship Specialty Start Date End Date Carson Salazar MD [address] [place] [facility] [address] PCP - General Family Medicine 02/07/24 Stalin Clarke MD [address] [place] [address] Referring Physician Endocrinology 10/27/24 Michele Peterson, [address] [place] [address] Otolaryngology 10/27/24 Supervisor Brine Relationship Specialty Start Date End Date Carson Salazar MD [address] [place] [id number] PCP - General 10/22/13 Supervisor Brine Relationship Specialty Start Date End Date Carson Salazar MD [address] [place] [phone] PCP - General Family Medicine 02/07/24 Stalin Clarke MD [address] [place] [address] Referring Physician Endocrinology 10/27/24 Michele Peterson, DO [address] [place] [address] Otolaryngology 10/27/24 Supervisor Brine Relationship Specialty Start Date End Date Carson Salazar MD [address] [place] [phone] PCP - General Family Medicine 02/07/24 Stalin Clarke MD [address] [place] [address] Referring Physician Endocrinology 10/27/24 Michele Peterosn DO [address] [place] [place] [address] Otolaryngology 10/27/24 Team Status: Inactive Member Role Status Dates Michele Peterson DO Attending Provider Active S tart: November 10, 2024 End: November 10, 2024 Supervisor Brine Relationship Specialty Start Date End Date Carson Salazar MD [address] [place] [address] PCP - General Family Medicine 02/07/24 Stalin Clarke MD [address] [place] [address] Referring Physician Endocrinology 10/27/24 Michele Peterson DO [address] [place] [address] Otolaryngology 10/27/24 Supervisor Brine Relationship Specialty Start Date End Date Pinky Romero CNP [address] [place] [address] PCP - General Internal Medicine 12/18/24 Supervisor Brine Relationship Specialty Start Date End Date Pinky Romero CNP [address] [place] [address] PCP - General Internal Medicine 12/18/24 Supervisor Brine Relationship Specialty Start Date End Date Pinky Romero CNP [address] [place] [address] PCP - General Internal Medicine 12/18/24 Supervisor Brine Relationship Specialty Start Date End Date Carson Salazar MD [address] [place] [address] PCP - General 10/22/13 Supervisor Brine Relationship Specialty Start Date End Date Carson Salazar MD [address] [place] [address] PCP - General 10/22/13 Goals (unrecognized section and content) Goals may be documented in a n alternate section Source Comments (unrecognize d section and content) In the event this informatio n is protected by the Federal Confidentiality of Alcohol and Drug Abuse Patient Records regulations: The Federal rules restrict any use of the information to criminally investigate or prosecute any alcohol or drug abuse patient.[facility] the event this information is protected by the Federal Confidentiality of Alcohol and Drug Abuse Patient Records regulations: The Federal rules restrict any use of the information to criminally investigate or prosecute any alcohol or drug abuse patient.[facility] the event this information is protected by the Federal Confidentiality of Alcohol and Drug Abuse Patient Records regulations: The Federal rules restrict any use of the information to criminally investigate or prosecute any alcohol or drug abuse patient.[facility] the event this information is protected by the Federal Confidentiality of Alcohol and Drug Abuse Patient Records regulations: The Federal rules restrict any use of the information to criminally investigate or prosecute any alcohol or drug abuse patient.[facility] FOR RECORDS PERTAINING TO PATIENTS WHO ARE OR HAVE BEEN ENROLLED IN A CHEMICAL DEPENDENCY/SUBSTANCEABUSE PROGRAM, SOME INFORMATION MAY BE OMITTED. This clinical summary was aggregated from multiple sources. Caution should be exercised in using it in the provision of clinical care. This summary normalizes information from multiple sources, and as a consequence, information in this document may materially change the coding, format and clinical context of patient data. In addition, data may be omitted in some cases. CLINICAL DECISIONS SHOULD BE BASED ON THE PRIMARY CLINICAL RECORDS. [facility] [employer] [facility]. provides no warranty or guarantee of the accuracy or completeness of information in this document.
[2025-03-15 01:36] VITALS: BP 150/100
--- NOTE | 2025-03-15 01:39 | ED_ITS ---
HPI - Abdominal Pain General Chief Complaint: Abdominal Pain Stated Complaint: ABDOMINAL PAIN, VOMITING, FEVER Time Seen by Provider: 03/15/25 01:35 Source: patient Source comment: Mother also providing history Mode of arrival: Wheelchair Limitations: no limitations History of Present Illness HPI narrative: states she was hospitalized at [facility] 2 weeks ago and treated with antibiotics for appendicitis. Seen Dr Chávez 3 days ago and prescribed Cipro, flagyl and anti emetics. Now presents complaining of recurrent vomiting and continued pain. Related Data Allergies Allergy/AdvReac Type Severity Reaction Status Date / Time Latex, Natural Rubber Allergy Severe Swelling Verified 03/15/25 01:45 of the Eye Beta-Blockers Allergy Intermediate Rash Verified 03/15/25 01:45 (Beta-Adrenergic Bloc ondansetron (From Zofran) AdvReac Intermediate Migraine Verified 03/15/25 01:45 Review of Systems ROS Status of ROS 10 or more systems reviewed and unremark able except as noted in history and below [facility] Medical History (Updated 03/15/25 @ 04:21 by Chavez Truong MD) FHx: cholecystectomy ?Z83.79 - Family history of other diseases of the digestive system (ICD-10) Ankle fracture, left ?S82.892A - Other fracture of left lower leg, initial encounter for closed fracture (ICD-10) Christie thyroiditis ?E06.3 - Autoimmune thyroiditis (ICD-10) Surgical History (Updated 03/15/25 @ 01:52 by Jamey Spain) H/O colonoscopy ?Z98.890 - Other specified postprocedural states (ICD-10) History of dilatation and curettage ?Z98.890 - Other specified postprocedural states (ICD-10) History of removal of ovarian cyst ?Z98.890 - Other specified postprocedural states (ICD-10) ?Z87.42 - Personal history of other diseases of the female genital tract (ICD-10) History of unilateral fallopian tube excision ?Z90.79 - Acquired absence of other genital organ(s) (ICD-10) S/P right rotator cuff repair ?Z98.890 - Other specified postprocedural states (ICD-10) History of open reduction and internal fixation (ORIF) procedure ?Z98.890 - Other specified postprocedural states (ICD-10) Social History Little interest or pleasure in doing things: not at all Feeling down, depressed, or hopeless: not at all Exam Constitutional Vital Signs, click to edit/add: Last Vital Signs Temp 99.1 F 03/15/25 01:22 Pulse 92 H 03/15/25 01:22 Resp 16 03/15/25 01:22 BP 150/100 H 03/15/25 01:36 Pulse Ox 98 03/15/25 01:22 O2 Del Method Room Air 03/15/25 01:22 Common normals: average body habitus, oriented x3, no limitations, healthy appearing, alert and well nourished General appearance: in distress HENMT Common normals: normocephalic and head/scalp atraumatic Eye Common normals: PERRL, EOMs intact bilaterally and conjunctivae normal Respiratory Common normals: normal respiratory effort, no retractions and no use of accessory muscles Cardio Common normals: regular rate, regular rhythm, S1 normal heart sound and S2 normal heart sound GI Palpation: rigid Location: RLQ Extremity Common normals: normal to inspection and full ROM Neuro Common normals: oriented x3, CN's II-XII intact bilaterally, moves all extremities, no focal motor deficits and no sensory deficits noted Psych Appearance: grossly normal Course Vital Signs Vital signs: Vital Signs Temperature 99.1 F 03/15/25 01:22 Pulse Rate 92 H 03/15/25 01:22 Respiratory Rate 16 03/15/25 01:22 Blood Pressure 156/109 H 03/15/25 01:22 Pulse Oximetry 98 03/15/25 01:22 Oxygen Delivery Method Room Air 03/15/25 01:22 Temperature 99.1 F 03/15/25 01:22 Pulse Rate 92 H 03/15/25 01:22 Respiratory Rate 16 03/15/25 01:22 Blood Pressure 150/100 H 03/15/25 01:36 Pulse Oximetry 98 03/15/25 01:22 Oxygen Delivery Method Room Air 03/15/25 01:22 MDM - Abdominal Pain MDM Narrative Medical decision making narrative: patient presents stating she was treated with antibiotics at [facility] fo appendicitis. Now has pain RLQ and vomiting. exam with RLQ tenderness without guarding. WBC is normal. CT with evidence of enteritis and adenitis. Nausea controlled with Reglan and patient is feeling better. Discharged to follow up with her PCP Lab Data Labs: Lab Results 03/15/25 03/15/25 Range/Units 01:28 03:40 WBC 9.4 (4.0-11.0) 10^3/uL RBC 5.08 (4.20-5.40) 10^6/uL Hgb 13.8 (12.0-16.0) g/dL Hct 39.6 (36.0-48.0) % MCV 78.0 L (81.0-99.0) fL MCH 27.2 (26.7-34.0) pg MCHC 34.8 (29.9-35.2) g/dL RDW 13.1 (11.0-15.0) % Plt Count 339 (150-450) 10^3/uL MPV 10.6 (9.5-13.5) fL Neut % (Auto) 64.9 (43.0-75.0) % Lymph % (Auto) 25.1 (20.5-60.0) % [place] % (Auto) 8.4 (1.7-12.0) % Eos % (Auto) 1.0 (0.9-7.0) % Baso % (Auto) 0.4 (0.2-2.0) % Neut # (Auto) 6.1 (1.4-6.5) 10^3/uL Lymph # (Auto) 2.4 (1.2-3.8) 10^3/uL [place] # (Auto) 0.8 (0.3-0.8) 10^3/uL Eos # (Auto) 0.1 (0.0-0.7) 10^3/uL Baso # (Auto) 0.0 (0.0-0.1) 10^3/uL Abs Immat Gran (auto) 0.02 (0.00-0.03) 10^3/uL Imm/Tot Granulo (auto) 0.2 (0.0-0.5) % Sodium 143 (136-145) mmol/L Potassium 3.0 L (3.5-5.1) mmol/L Chloride 102 (98-107) mmol/L Carbon Dioxide 25.2 (21.0-32.0) mmol/L Anion Gap 18.8 BUN 16.0 (7.0-18.0) mg/dL Creatinine 0.96 (0.55-1.02) mg/dL Est GFR ( Amer) >60 (>=60 mL/min/1.73m^2) Est GFR (Non-Af Amer) >60 (>=60 mL/min/1.73m^2) BUN/Creatinine Ratio 16.7 Glucose 103 (74-106) mg/dL Lactate 1.8 (0.4-2.0) mmol/L Calcium 9.9 (8.5-10.1) mg/dL Total Bilirubin 0.5 (0.2-1.0) mg/dL AST 35 (15-37) U/L ALT 52 (14-59) U/L Alkaline Phosphatase 67 (46-116) U/L Total Protein 8.3 H (6.4-8.2) g/dL Albumin 4.5 (3.4-5.0) g/dL Globulin 3.8 g/dL Albumin/Globulin Ratio 1.2 Lipase 61.0 (16.0-77.0) U/L Serum HCG, Qual Negative (NEGATIVE) Urine Color Dk. yellow (YELLOW) Urine Clarity Clear (CLEAR) Urine pH 5.5 (5.0-9.0) Ur Specific [place] 1.010 (1.005-1.025) Urine Protein 30 A (NEG/TRACE) mg/dL Urine Glucose (UA) Negative (NEGATIVE) mg/dL Urine Ketones Trace A (NEGATIVE) mg/dL Urine Occult Blood Negative (NEGATIVE) Urine Nitrite Negative (NEGATIVE) Urine Bilirubin Negative (NEGATIVE) Urine Urobilinogen 0.2 (0.2-1.0) EU/dL Ur Leukocyte Esterase Negative (NEGATIVE) Urine RBC None seen (0-2) #/HPF Urine WBC 0-2 A (NONE SEEN) #/HPF Ur Squamous Epith Cells Few A (NONE/RARE) #/LPF Urine Crystals None seen (None Seen) #/HPF Urine Bacteria None seen (NONE SEEN) #/HPF Urine Casts Seen A (NONE SEEN) #/LPF Hyaline Casts Rare Urine Mucus None seen (NONE SEEN) Ur Culture Indicated? No Discharge Plan Discharge Chief Complaint: Abdominal Pain Clinical Impression: Acute mesenteric adenitis Patient Disposition: Home, Self-Care Print Language: Hebrew Instructions: Adenitis (ED) Additional Instructions: follow up with Dr Chávez later today Referrals: Michael Chávez MD [Primary Care Provider, Family Practice] - 1 week
[2025-03-15 02:10] LABS: Basophils Percent Auto 0.4 % (0.2-2.0); Eosinophils Absolute Auto 0.1 10^3/uL (0.0-0.7); Hematocrit 39.6 % (36.0-48.0); Hemoglobin 13.8 g/dL (12.0-16.0); Immature Granulocytes Abs Auto 0.02 10^3/uL (0.00-0.03); Immature Granulocytes Pct Auto 0.2 % (0.0-0.5); Lymphocytes Absolute Auto 2.4 10^3/uL (1.2-3.8); Lymphocytes Percent Auto 25.1 % (20.5-60.0); Mean Corpuscular HGB Conc 34.8 g/dL (29.9-35.2); Mean Corpuscular Hemoglobin 27.2 pg (26.7-34.0); Mean Platelet Volume 10.6 fL (9.5-13.5); Monocytes Absolute Auto 0.8 10^3/uL (0.3-0.8); Monocytes Percent Auto 8.4 % (1.7-12.0); Neutrophils Absolute Auto 6.1 10^3/uL (1.4-6.5); Neutrophils Percent Auto 64.9 % (43.0-75.0); Platelet Count 339 10^3/uL (150-450); Red Blood Count 5.08 10^6/uL (4.20-5.40); Red Cell Distribution Width 13.1 % (11.0-15.0); White Blood Count 9.4 10^3/uL (4.0-11.0)
[2025-03-15] MEDS: METOCLOPRAMIDE HCL 10 MG/2 ML VIAL IVP (02:10)
[2025-03-15] MEDS: 0.9 % SODIUM CHLORIDE 1,000 ML 999 ML IV (02:10)
[2025-03-15 02:22] LABS: HCG Qualitative NEGATIVE (NEGATIVE); Internal Control Within Normal Limits
[2025-03-15 02:30] LABS: Lactate/Lactic Acid 1.8 mmol/L (0.4-2.0)
[2025-03-15 02:37] LABS: Alanine Aminotransferase 52 U/L (14-59); Albumin Globulin Ratio 1.2; Albumin Level 4.5 g/dL (3.4-5.0); Alkaline Phosphatase 67 U/L (46-116); Anion Gap 18.8; Aspartate Amino Transferase 35 U/L (15-37); BUN Creatinine Ratio 16.7; Bilirubin Total 0.5 mg/dL (0.2-1.0); Calcium 9.9 mg/dL (8.5-10.1); Carbon Dioxide 25.2 mmol/L (21.0-32.0); Chloride 102 mmol/L (98-107); Estimated GFR (African America >60 (>=60 mL/min/1.73m^2); Estimated GFR (Non-African Ame >60 (>=60 mL/min/1.73m^2); Globulin 3.8 g/dL; Glucose 103 mg/dL (74-106); Sodium 143 mmol/L (136-145); Total Protein 8.3 g/dL (6.4-8.2)
[2025-03-15 03:49] LABS: Bilirubin Urine NEGATIVE (NEGATIVE); Blood Urine NEGATIVE (NEGATIVE); Clarity Urine CLEAR (CLEAR); Color Urine DK. YELLOW (YELLOW); Glucose Urine UA NEGATIVE (NEGATIVE); Ketones Urine TRACE mg/dL (NEGATIVE); Leukocyte Esterase Urine NEGATIVE (NEGATIVE); Nitrite Urine NEGATIVE (NEGATIVE); Protein Urine 30 mg/dL (NEG/TRACE); Urobilinogen Urine 0.2 EU/dL (0.2-1.0); pH Urine 5.5 (5.0-9.0)
[2025-03-15 03:57] LABS: Bacteria Urine NONE SEEN #/HPF (NONE SEEN); Cast Seen? SEEN #/LPF (NONE SEEN); Crystals Seen? None Seen #/HPF (None Seen); Hyaline Casts Urine RARE; Mucus Urine NONE SEEN (NONE SEEN); RBC Urine NONE SEEN #/HPF (0-2); Squamous Epithelial Cell Urine FEW #/LPF (NONE/RARE); WBC Urine 0-2 #/HPF (NONE SEEN)
[2025-03-15 03:58] LABS: Urine Culture Indicated NO
[2025-03-15] MEDS: METOCLOPRAMIDE HCL 10 MG TABLET PO (04:30)
== END 2025-03-15 04:41 | disposition home or self-care (01) ==
PROVIDERS: Emergency Provider Internal Medicine; PCP Family Medicine
DX: I88.0 Nonspecific mesenteric lymphadenitis (principal)
CPT/HCPCS: 36415; 74177; 80053; 81001; 83605; 83690; 84703; 85025; 96374; 99285; J2765; Q9967

== ENCOUNTER 2025-07-13 23:59 | Outpatient (OUT) | payer OTHER, SELFPAY ==
--- OUTSIDE RECORDS SUMMARY | 2025-06-29 15:45 | XMS_ITS | Encounter Summary ---
Author Organization [facility] Address [address] [place] [address] Care Team Providers Care Salt Operator Name Role Phone Steffi Bermudez CNP Unavailable [phone] Michael Chávez MD Primary Care Provider [phone] Encounter Details Date Type Department Care Team (Latest Contact Info) Description 06/29/2025 3:45 PM EDT - 06/29/2025 11:59 PM EDT Hospital Encounter [facility] [address] [place] [address] Nausea; Weight loss; Chronic abdominal pain Discharge Disposition: Home or Self Care () Social History Tobacco Use Types Packs/Day Years Used Date Smoking Tobacco: Former Cigarettes 0.3 10 Smokeless Tobacco: Never Alcohol Use Standard Drinks/Week Comments Not Currently 0 (1 standard drink = 0.6 oz pur e alcohol) Humiliation, Afraid, Rape, and Kick questionnair e Answer Date Recorded Within the last year, have y ou been afraid of your partner or ex-partner? No 06/29/2025 Within the last year, have y ou been humiliated or emotionally abused in other ways by your partner or ex-partner? No Within the last year, have y ou been kicked, hit, slapped, or otherwise physically hurt by your partner or ex-partner? No 06/29/2025 Within the last year, have y ou been raped or forced to have any kind of sexual activity by your partner or ex-partner? No 06/29/2025 PHQ-2 Answer Date Recorded Patient Health Questionnaire-2 Score 0 06/29/2025 Comments No Sex and Gender Information Value Date Recorded Sex Assigned at Female 04/06/2025 2:19 PM EDT Legal Sex Female 3:28 PM EST Gender Identity Female 04/06/2025 2:19 PM EDT Sexual Orientation Heterosexual or Straight 03/15 2:19 PM EDT documented as of this encounter Functional Status * BP Answer Date of Assessment Author 151/106 06/29/2025 2:45 PM EDT Quyen Manzo MA * Pulse Answer Date of Assessment Author 97 06/29/2025 2:45 PM EDT Quyen Waldrop MA * Patient Position Answer Date of Assessment Author Sitting 06/29/2025 2:45 PM EDT Quyen Manzo MA * Fall Risk Question Answer Date of Assessment Author Worried about fallin 06/29/2025 2:48 PM EDT Quyen Manzo MA One or more falls in the t year: No 06/29/2025 2:48 PM EDT Favian Manzo MA Feels unsteady when walkin 06/29/2025 2 :48 PM EDT Quyen Manzo MA * BP Answer Date of Assessment Author 151/106 06/29/2025 2:45 PM EDT Quyen Manzo MA * Pulse Answer Date of Assessment Author 97 06/29/2025 2:45 PM EDT Quyen Mnazo MA * Over the past 2 weeks, how often have you been bothered by any of the following problems? Question Answer Date of Assessment Author Thoughts that you would be better off or hurting yourself in some way Not at all 06/29/2025 2:48 PM EDT Christiano Manzo MA Patient Health Questionnaire-9 Score 0 06/29/2025 2:48 PM EDT Ruddy Manzo MA Trouble falling or staying asleep, or sleeping too much Not at all 06/29/2025 2:48 PM JESSICAT Quyen Waldrop MA Feeling tired or having little energy Not at all 06/29/2025 2:48 PM EDT Favian Manzo MA Poor appetite or overeating Not at all 06/29/2025 2: 48 PM JESSICAT Quyen Manzo MA Feeling bad about yourself - or that you are a failure or have let yourself or your family down Not at all 06/29/2025 2:48 PM JESSICAT Favian Manzo MA Trouble concentrating on things, such as reading the newspaper or watching television Not at all 06/29/2025 2:48 PM JESSICAT Favian Manzo MA Moving or speaking so slowly that other people could have noticed? Or the opposite - being so fidgety or restless that you have been moving around a lot more than usual. Not at all 06/29/2025 2:48 PM EDT Quyen Morales MA * Over the past 2 weeks, how often have you been bothered by any of the following problems? Question Answer Date of Assessment Author Little interest or pleasure in doing things Not at all 06/29/2025 2:48 PM Favian Bedoya MA Feeling down, depressed, or hopeless Not at all 06/29/2025 2:48 PM JESSICAT Favian Manzo MA Patient Health Questionnaire-2 Score 0 06/29/2025 2:48 PM JESSICAT Ruddy Manzo MA * BP Location Answer Date of Assessment Author Left arm 06/29/2025 2:45 PM Quyen Bedoya MA * Modified Malnutrition Screen Tool (MST) Question Answer Date of Assessment Author Have you been eating poorly because of a decreased appetite? No 06/29/2025 2:48 PM JESSICAT Quyen Ansari MA Have you recently lost weigh t without trying? No 06/29/2025 2:48 PM JESSICAT Favian Manzo MA * Patient Position Answer Date of Assessment Author Sitting 06/29/2025 2:45 PM Quyen Bedoya MA documented as of this encounter Medications at Time of Discharge amLODIPine (Norvasc) 5 mg tablet Take 1 tablet by mouth twice a day. 10/29/2023 cholecalciferol, vitamin D3, 50 mcg (2,000 unit) capsule Take 1 capsule by mouth in the morning. fluticasone (Flonase) 50 mcg/actuation nasal spray 1 spray by Does not apply route in the morning. 02/24/2020 hydrOXYzine pamoate (Vistaril) 25 mg capsule Take by mouth. 08/24/2020 hyoscyamine 0.125 mg dissolvable tablet every 4 (four) hours if needed. 07/25/2023 levothyroxine (Synthroid, Levoxyl) 137 mcg tablet Take 137 mcg by mouth in the morning. 09/29/2024 09/24/2025 loratadine 10 mg capsule Take 1 capsule by mouth in the morning. M- Plus 27 mg iron- 1 mg tablet 1 tablet at bedtime. 12/18/2024 magnesium oxide (Mag-Ox) 400 mg (241.3 mg magnesium) tablet Take 1 tablet by mouth twice a day. 08/20/2024 metFORMIN XR (Glucophage-XR) 500 mg 24 hr tablet Take 1,000 mg by mouth twice a day. 09/21/2024 nicotine (Nicoderm CQ) 14 mg/[address] 1 patch on the skin in the morning. omeprazole (PriLOSEC) [address] capsule Take 1 capsule by mouth in the morning. oxaprozin (Daypro) 600 mg tablet Take 1,200 mg by mouth in the morning. promethazine (Phenergan) 25 mg tabletIndications :Nausea Take 1 tablet (25 mg) by mouth every 8 (eight) hours if needed for nausea or vomiting. 30 tablet 1 06/29/2025 08/28/2025 QUEtiapine (SEROquel) 50 mg tablet Take 50 mg by mouth at bedtime. valACYclovir (Valtrex) 1 gram tablet if needed. 05/15/2024 venlafaxine XR (Effexor-XR) 150 mg 24 hr capsule at bedtime. 01/18/2025 documented as of this encounter Plan of Treatment Upcoming Encounters Date Type Department Care Team (Late st Contact Info) Description 10/19/2025 3:00 PM EST Office Visit [facility] Gastroenterology [address] [place] [address] [place] [id number] Steffi Bermudez, TELECOMMUNICATION EQUIPMENT REPAIRER [address] [place] [address] documented as of this encounter Procedures Procedure Name Priority Date/Time Associated Diagnosis Comments XR ABDOMEN 1 VIEW Routine 06/29/2025 4:1 2 PM EDT Nausea Weight loss Chronic abdominal pain documented in this encounter Results * XR abdomen 1 view (06/29/2025 4:12 PM EDT) Anatomical Region Laterality Modality Abdomen Computed Radiogr aphy 06/30/2025 8:35 AM EDT Impressions 06/30/2025 8:36 AM EDT FINDINGS/IMPRESSION: * Nonobstructive bowel gas pattern * Moderate colonic fecal distention predominantly involving the ascending colon * No abnormal calcification along the urinary tract * Cholecystectomy clips * Osseous structures are unremarkable Electronically signed: Ravinder Melendrez. Narrative 06/30/2025 8:36 AM EDT XR ABDOMEN 1 VIEW 06/29/2025 4:07 PM TECHNIQUE: Single view of the abdomen INDICATION: Assess stool burden COMPARISON: Radiograph for a 25 Procedure Note Ravinder Melendrez MD - 06/30/2025 XR ABDOMEN 1 VIEW 06/29/2025 4:07 PM TECHNIQUE: Single view of the abdomen INDICATION: Assess stool burden COMPARISON: Radiograph for a 25 IMPRESSION: FINDINGS/IMPRESSION: *Nonobstructive bowel gas pattern *Moderate colonic fecal distention predominantly involving theascending colon *No abnormal calcification along the urinary tract *Cholecystectomy clips *Osseous structures are unremarkable Electronically signed: Ravinder Melendrez. Steffi Bermudez CNP IMG XR PROCEDURES Fin al Result documented in this encounter Visit Diagnoses Diagnosis Nausea Nausea alone Weight loss Loss of weight Chronic abdominal pain Abdominal pain, unspecified site documented in this encounter Care Teams Salt Operator Relationship Specialty Start Date End Date Michael Chávez MD [address] [facility] [place] [address] [address] PCP - General Family Medicine 02/11/25 Steffi Bermudez CNP [address] [place] [address] Gastroenterology 01/20/25 documented as of this encounter
--- OUTSIDE RECORDS SUMMARY | 2025-07-02 10:01 | XMS_ITS | Encounter Summary ---
Author Organization [facility] Address [address], [address] [place] [address] Care Team Providers Care Zoology Technical Officer Name Role Phone Michael Chávez MD Primary Care Provider [phone] Reason for Referral * Imaging (Routine) - Open Specialty Diagnoses / Procedures Referred By Contac t Referred To Contact Radiology Diagnoses Nausea Loss of weight Chronic abdominal pain Procedures NM GASTRIC EMPTYING Steffi Bermudez APRN - CNP [address] [place] [address] [place] [address] Phone: tel: fax: Referral ID Status Reason Start Date Expiration Date Visits Re quested Visits Authorized [id number] Open 06/30/2025 06/30/2026 1 1 Reason for Visit * Imaging (Routine) - Open Specialty Diagnoses / Procedures Referred By Angelica gramajo Referred To Contact Radiology Diagnoses Nausea Loss of weight Chronic abdominal pain Procedures NM GASTRIC EMPTYING Steffi Bermudez APRN - CNP [address] [place] [address] [place] [address] Phone: tel: fax: Referral ID Status Reason Start Date Expiration Date Visits Re quested Visits Authorized [id number] Open 06/30/2025 06/30/2026 1 1 Encounter Details Date Type Department Care Team (Latest Contact Info) Description 07/02/2025 10:01 AM EDT - 07/04/2025 11:59 PM EDT Hospital Encounter [facility] Medicine [address] [place] [address] Nausea; Loss of weight; Chronic abdominal pain Discharge Disposition: Home or Self Care Social History Tobacco Use Types Packs/Day Years Used Date Smoking Tobacco: Former Cigarettes 0.3 10 1 - 07/14/2018 Smokeless Tobacco: Never Comments:Still on patches Alcohol Use Standard Drinks/Week Comments No 0 (1 standard drink = 0.6 oz pur e alcohol) [facility] Utilities Answer Date Recorded In the past 12 months has th e [employer], gas, oil, or water Earlier Media threatened to shut off services in your [...] any time in the past 12 m [facility], were you homeless or living in a correction (including now)? No 02/14/2025 Food Insecurity Answer [...] AM EDT documented as of this encounter Medications at Time of Discharge metFORMIN (GLUCOPHAGE-XR) 500 MG extended release tablet TAKE TWO (2) TABLETS BY MOUTH IN THE MORNING AND TAKE TWO (2) TABLETS BY MOUTH AT BEDTIME 120 tablet 10 09/21/2024 amLODIPine (NORVASC) 5 MG tablet Take 1 tablet by mouth 2 times daily magnesium oxide (MAG-OX) 400 MG tablet Take 1 tablet by mouth 2 times daily 08/20/2024 oxaprozin (DAYPRO) 600 MG tablet TAKE 2 TABLETS BY MOUTH EACH MORNING QUEtiapine (SEROQUEL) 50 MG tablet Take 1 tablet by mouth nightly Vit-Fe Fumarate-FA (M-ROBBIN PLUS) 27-1 MG TABS Take 1 tablet by mouth daily 30 tablet 12 09/08/2024 hyoscyamine (LEVSIN/SL) [address] 1 tablet under the tongue every 6 hours as needed for Diarrhea or Cramping 07/25/2023 loratadine (CLARITIN) 10 MG capsule Take 1 capsule by mouth daily hydrOXYzine (VISTARIL) 25 MG capsule Take 1 capsule by mouth 4 times daily as needed for Anxiety 08/24/2020 venlafaxine (EFFEXOR XR) 75 MG extended release capsule 2 capsules nightly 08/24/2020 nicotine (NICODERM CQ) 14 MG/24HR Place 1 patch onto the skin every 24 hours fluticasone (FLONASE) 50 MCG/ACT nasal spray 1 spray by Nasal route daily 02/24/2020 Cholecalciferol (VITAMIN D) 2000 units CAPS capsule Take 1 capsule by mouth daily levothyroxine (SYNTHROID) 137 MCG tablet Take 1 tablet by mouth nightly omeprazole (PRILOSEC) 40 MG delayed release capsule Take 1 capsule by mouth daily documented as of this encounter Plan of Treatment Upcoming Encounters Date Type Department Care Team (Late st Contact Info) Description 09/14/2025 1:45 PM EST Office Visit [facility]ECOLOGY Part of [address] [place], [place] [id number] Lizbet Griffin, [facility] [address] yearly documented as of this encounter Procedures Procedure Name Priority Date/Time Associated Diagnosis Comments NM GASTRIC EMPTYING Routine 07/02/2025 2 :47 PM EDT Nausea Loss of weight Chronic abdominal pain documented in this encounter Results * NM GASTRIC EMPTYING (07/02/2025 2:47 PM EDT) Anatomical Region Laterality Modality Abdomen Nuclear Medicine 07/02/2025 11:0 9 PM EDT Impressions 07/02/2025 11:10 PM EDT 1. Delayed gastric emptying. Narrative 07/02/2025 11:10 PM EDT EXAM: GASTRIC EMPTYING 07/02/2025 02:47:00 PM TECHNIQUE: RADIOPHARMACEUTICAL: 1 mCi Tc-99m sulfur colloid in standard egg meal Anterior and posterior planar images of the abdomen were obtained at 0, 1, 2, and 4 hours. Quantitative analysis was performed using the geometric mean. Medications altering gastric motility are typically held unless instructed otherwise by the ordering provider. COMPARISON: None available. CLINICAL HISTORY: Nausea; Loss of weight; Chronic abdominal pain; Chronic abdominal pain. FINDINGS: 1 Hour: 31% emptying. (Normal emptying at 1 hour is 10-70%). 2 Hours: 47% emptying. (Normal emptying at 2 hours is >40%). 4 Hours: 78% emptying. (Normal emptying at 4 hours is >90%). No significant reflux or esophageal retention is noted. Procedure Note Rajinder Miramontes MD - 07/02/2025 EXAM: GASTRIC EMPTYING 07/02/2025 02:47:00 PM TECHNIQUE: RADIOPHARMACEUTICAL: 1 mCi Tc-99m sulfur colloid in standard egg meal Anterior and posterior planar images of the abdomen were obtained at 0, 1,2, and 4 hours. Quantitative analysis was performed using the Turpitudemean. Medications altering gastric motility are typically held unless instructedotherwise by the ordering provider. COMPARISON: None available. CLINICAL HISTORY: Nausea; Loss of weight; Chronic abdominal pain; Chronic abdominal pain. FINDINGS: 1 Hour: 31% emptying. (Normal emptying at 1 hour is 10-70%). 2 Hours: 47% emptying. (Normal emptying at 2 hours is >40%). 4 Hours: 78% emptying. (Normal emptying at 4 hours is >90%). No significant reflux or esophageal retention is noted. IMPRESSION: 1. Delayed gastric emptying. us Steffi Lara SVP BUSINESS DEVELOPMENT - WIND TURBINE BLADE REPAIR TECHNICIAN IMG NM ORDERABLE S Final Result documented in this encounter Visit Diagnoses Diagnosis Nausea Nausea alone Loss of weight Chronic abdominal pain Abdominal pain, unspecified site documented in this encounter Administered Medications Inactive Administered Medications - up to 3 most recent administrations Medication Order MAR Action Action Date Dose Rate Site technetium sulfur colloid egg Oral 1 millicurie 1 millicurie, Oral, IMG ONCE PRN, 1 dose, Starting on Sat07/02/25 at 1032, Until Sat07/02/25 at 1032, Other, IN EGG Given 07/02/2025 10:32 AM EDT 1 millicurie documented in this encounter Care Teams Zoology Technical Officer Relationship Specialty Start Date End Date Michael Chávez MD [address] [place] [address] PCP - General 10/22/13 documented as of this encounter
--- OUTSIDE RECORDS SUMMARY | 2025-07-02 10:02 | XMS_ITS | Encounter Summary ---
Author Organization [facility] Address [address], [address] [place] [address] Care Team Providers Care Tool Technician Name Role Phone Michael Chávez MD Primary Care Provider [phone] Reason for Visit * Imaging (Routine) - Open Specialty Diagnoses / Procedures Referred By Contac t Referred To Contact Radiology Diagnoses Nausea Loss of weight Chronic abdominal pain Procedures NM GASTRIC EMPTYING Steffi Bermudez, BUILDING ASSOCIATE - [facility] [address] [place] [address] Phone: tel: fax: Referral ID Status Reason Start Date Expiration Date Visits Re quested Visits Authorized [id number] Open 06/30/2025 06/30/2026 1 1 Encounter Details Date Type Department Care Team (Latest Contact Info) Description 07/02/2025 10:02 AM EDT - 07/04/2025 11:59 PM EDT Hospital Encounter [facility] Nuclear Medicine [address] [place], [place] [id number] Discharge Disposition: Home or Self Care Social History Tobacco Use Types Packs/Day Years Used Date Smoking Tobacco: Former Cigarettes 0.3 10 1 - 07/14/2018 Smokeless Tobacco: Never Comments:Still on patches Alcohol Use Standard Drinks/Week Comments No 0 (1 standard drink = 0.6 oz pur e alcohol) [facility] Utilities Answer Date Recorded In the past 12 months has [employer] electric, gas, oil, or water company threatened to shut off [...] any time in the past 12 m [facility], were you homeless or living in a long-term (including now)? No 02/14/2025 Food Insecurity Answer [...] Description 09/14/2025 1:45 PM EST Office Visit [facility] OBSTETRICS & GYNECOLOGY Part of [address] [place] [address] Lizbet Griffin DO [address] [place] [address] [place] [address] yearly documented as of this [...] hours. Quantitative analysis was performed using the geometricmean. Medications altering gastric motility are typically held [...] IMPRESSION: 1. Delayed gastric emptying. us Steffi Bermudez BUILDING ASSOCIATE - OPERATIONS EXPERT IMG NM ORDERABLE S Final Result documented in this encounter Visit Diagnoses Not on filedocumented in this encounter Care Teams Tool Technician Relationship Specialty Start Date End Date Michael Chávez MD [address] [place] [address] PCP - General 10/22/13 documented as of this encounter
--- OUTSIDE RECORDS SUMMARY | 2025-07-02 10:03 | XMS_ITS | Encounter Summary ---
Author Organization [facility] Address [address], [address] [place] [address] Care Team Providers Care Engine Dispatcher Name Role Phone Michael Chávez MD Primary Care Provider [phone] Reason for Visit * Imaging (Routine) - Open Specialty Diagnoses / Procedures Referred By Contac t Referred To Contact Radiology Diagnoses Nausea Loss of weight Chronic abdominal pain Procedures NM GASTRIC EMPTYING Steffi Bermudez, ELECTRICAL EQUIPMENT ASSEMBLER - [facility] [address] [place] [address] Phone: tel: fax: Referral ID Status Reason Start Date Expiration Date Visits Re quested Visits Authorized [id number] Open 06/30/2025 06/30/2026 1 1 Encounter Details Date Type Department Care Team (Latest Contact Info) Description 07/02/2025 10:03 AM EDT - 07/04/2025 11:59 PM EDT Hospital Encounter [facility] Nuclear Medicine [address] [place], [place] [id number] Discharge Disposition: Home or Self Care Social History Tobacco Use Types Packs/Day Years Used Date Smoking Tobacco: Former Cigarettes 0.3 10 1 - 07/14/2018 Smokeless Tobacco: Never Comments:Still on patches Alcohol Use Standard Drinks/Week Comments No 0 (1 standard drink = 0.6 oz pur e alcohol) [facility] Utilities Answer Date Recorded In the past 12 months has [employer] electric, gas, oil, or water company threatened [...] any time in the past 12 m [facility], were you homeless or living in a senior care (including now)? No 02/14/2025 Food Insecurity Answer [...] Description 09/14/2025 1:45 PM EST Office Visit [facility] OBSTETRICS & GYNECOLOGY Part of [address] [place] [address] Lizbet Griffin DO [address] [place] [address] [place] [address] yearly documented as of this [...] 1. Delayed gastric emptying. us Steffi Bermudez ELECTRICAL EQUIPMENT ASSEMBLER - SALES PROPERTY MANAGER IMG NM ORDERABLE S Final Result documented in this encounter Visit Diagnoses Not on filedocumented in this encounter Care Teams Engine Dispatcher Relationship Specialty Start Date End Date Michael Chávez MD [address] [place] [address] PCP - General 10/22/13 documented as of this encounter
--- OUTSIDE RECORDS SUMMARY | 2025-07-08 11:37 | XMS_ITS ---
Author Organization [facility] [place] Address [address] [place] [address] Care Team Providers Care Hatchery Manager Name Role Phone SUZE CHÁVEZ MD Primary Care Provider Suze Chávez Unavailable [phone] Reason For Referral Diagnosis 1 Gastroparesis (K31.8 4) Referral Organization [facility] Referring Provider First Name Suze Referring Provider Last Name Kyler Referring Provider Speciality Family Med icine Referred Provider [facility], [facility] Referred Provider Specialty Dietitian Referral Priority Routine REASON FOR VISIT referral Problems Problem Type SNOMED Code ICD Code Onset Dates Problem Status W/U Status Risk Notes Problem Gastroparesis (964761110) Gastroparesis (K31.84) Active confirmed Encounters Encounter Location Date Provider Diagnosis [facility] [address] [place] [address] 07/08/2025 Suze Chávez Gastroparesis K31.8 4 Assessments Encounter Date Diagnosis (ICD Code) Assessment Notes Treatment Notes Treatment Clinical Notes Section Notes 07/08/2025 Gastroparesis (ICD-10 - K31.84) Plan Of Treatment Referrals Referral Date Details 07/08/2025 07/08/2025, Vikki del castillo [facility] Progress Notes * Quyen LEWIS HDOB:1989 (35 yo F)Acc No.[id number]:07/08/2025 Patient: Quyen BARRIOS :1990 A ge:35 Y S ex:Female Address:[address] [place] [address], [address] [place] [id number] Subjective: * Chief Complaints: * R eferral * Medical History: * Surgical History: * Hospitalization/Major Diagno stic Procedure: * Medications: Objective: * Vitals: * Physical Examination: Assessment: * Assessment: [facility]. [facility] K[facility] (Primary) Plan: * Treatment: * Procedure Codes: * true * Date: Generated for Dani zaldivar/Elver/Alizesmitting on: 01:51 PM EDT Consultation Request Notes Referral Date Referring Provider Referred Provider Not es 07/08/2025 Suze Chávez [facility], [facility]
--- OUTSIDE RECORDS SUMMARY | 2025-07-12 13:45 | XMS_ITS | Encounter Summary ---
Author Organization [facility] Address [address] [place] [address] Care Team Providers Care Broiler Chef Or Cook Name Role Phone Michael Chávez MD Primary Care Provider [phone] Stalin Clarke MD Unavailable Michele Peterson DO Unavailable [phone] Reason for Visit * Reason Comments Post-op 1 month armand with carlos [place] Encounter Details Date Type Department Care Team (Late st Contact Info) Description 07/12/2025 1:45 PM EDT Office Visit [facility] [address] [place] [address] Michele Peterson DO [address] [place] [address] Status post partial thyroidectomy (Primary Dx) Social History Tobacco Use Types [...] PM EDT documented as of this encounter Last Filed Vital Signs Vital Sign Reading Time Taken Comments Blood Pressure - - Pulse - - Temperature - - Respiratory Rate - - Oxygen Saturation - - Inhaled Oxygen Concentration - - Weight 97.5 kg (215 lb) 07/12/2025 1:42 PM EDT Height 165.1 cm (5' 5 ) 07/12/2025 1:42 PM EDT Body Mass Index 35.78 07/12/2025 1:42 PM EDT documented in this encounter Progress Notes * Michele Peterson DO - 07/12/2025 1:45 PM EDT HPI Patient presents today about a month postop right hemithyroidectomy for what turned out to be benign disease. She is currently taking Synthroid 137 mcg daily which is being managed by Dr. Clarke. She is feeling fine. Recent lab work is all within normal limits. Relevant postoperative physical examination Neck incision intact and scar feeding nicely. Assessment/plan Quyen was seen today for post-op. Diagnoses and all orders for this visit: Status post partial thyroidectomy (Primary) Comments: I am going to release the patient back to her PCP and Dr. Lemons, I will see her back as needed documented in this encounter Plan of Treatment Upcoming Encounters Date Type Department Care Team (Late st Contact Info) Description 09/28/2025 11:00 AM EST Office Visit [facility] [address] [place] [address] Stalin Clarke MD [address] [place] [address] documented as of this encounter Visit Diagnoses Diagnosis Status post partial thyroidectomy- Primary Other postprocedural status documented in this encounter Care Teams Broiler Chef Or Cook Relationship Specialty Start Date End Date Michael Chávez MD PCP - General Family Medicine 02/07/24 Stalin Clarke MD [address] [place] [address] Referring Physician Endocrinology 10/27/24 Michele Peterson DO [address] [place] [address] Otolaryngology 10/27/24 documented as of this encounter
--- OUTSIDE RECORDS SUMMARY | 2025-07-12 20:39 | XMS_ITS | Continuity of Care Document ---
Author Organization [facility] Address [address] [place] [address] Phone Care Team Providers Care Panel Maker Name Role Phone Michele Peterson DO Attending Provider [phone] Michael Chávez MD Primary Care Provider Care Teams Patient Care Team Team Status: Active Member Role Status Dates Michael Chávez MD Primary Care Provider Active Visit Care Team Team Status: Inactive Member Role Status Dates Michele Peterson DO Attending Provider Active S tart: June 01, 2025 End: June 01, 2025 Patient Care Team Team Status: Inactive Member Role Status Dates Michael Chávez MD Primary Care Provider Active Start: July 12, 2025 End: July 12, 2025 Michele Peterson DO Attending Provider Active S tart: July 12, 2025 End: July 12, 2025 Chief Complaint and Reason for Visit Chief Complaint Admit Date Thyroid Nodule June 01, 2025 1: 00pm e04.1 July 12, 2025 9:18am Social History Smoking Status Unknown if ever smoked Observation Status Observation Response Date of Response Legal Sex Female (finding) Sex Assigned At Female 1990 Relevant Diagnostic Tests and/or Laboratory Data Laboratory Results Test Collection Date/Time Result Date/Time Result Interpretation Reference Range Result Comment Performing Site Total Thyroxine July 12, 2025 9:36am July 12, 2025 10:57am 9.72 ug/dL 5.39-11.82 [facility] [id number] [address] [facility] [address] Total Triiodothyron ine July 12, 2025 9:36am July 12, 2025 11:01am 0.91 ng/mL 0.87-1.78 [facility] [id number] [address] [facility] [address] Thyroid Stimulating Hormone 3rd Gen July 12, 2025 9:36am July 12, 2025 10:54am 1.47 u[iU]/m L 0.45-5.33 [facility] [id number] [address] [facility] [address] Advance Directives Advance Directive Response Recorded Date/ Time Advance Directives No November 11, 2024 7:13am Insurance Providers Guarantor Quyen Jarrett Address [address] [place] [phone] Contact Info. Home Phone: C Payer Policy Id Subscriber's Name Subscriber Id Latha ctive Date Expiration Date [employer] [id number] Quyen Jarrett [id number] Insurance No Card [id number] Quyen Jarrett [id number] Encounters Encounter Location(s) Arrival/Admit Date Discharge/Depart Date Provider(s) Departed Clinical -Lab [facility] June 01, 2025 1:00pm June 01, 2025 1:01pm Michele Peterson DO Departed Clinical -Lab [facility] July 12, 2025 9:18am July 12, 2025 9:19am Michele Peterson DO
--- OUTSIDE RECORDS SUMMARY | 2025-07-14 13:50 | XMS_ITS | Encounter Summary ---
Author Organization [facility] Address [address] [facility], [address] [place] [address] Care Team Providers Care Paint Line Operator Name Role Phone Michael Chávez MD Primary Care Provider [phone] Reason for Referral * Imaging (Routine) - Closed Specialty Diagnoses / Procedures Referred By Contac t Referred To Contact Radiology Diagnoses RUQ pain Procedures US ABDOMEN LIMITED Michael Chávez MD [address] [place] [address] Phone: tel: fax: Referral ID Status Reason Start Date Expiration Date Visits Re quested Visits Authorized [id number] Closed 10/05/2022 10/05/2023 1 1 Encounter Details Date Type Department Care Team (Latest Contact Info) Description 10/05/2022 Transcribe Orders [facility] Pre [facility] [address] [id number] Michael Chávez MD [address] [place] [address] RUQ pain (Primary Dx) Social History Tobacco [...] Description 09/14/2025 1:45 PM EST Office Visit [facility] & [facility]YNECOLOGY Part of [address] [place] [address] Lizbet Griffin, DO [address] [place] [address] [address] [place] [address] yearly documented as of this encounter Results [...] 02/14/2025 02/14/2025 02/14/2025 7 :04 PM EDT C-diff Rule Out 06/24/2025 06/24/2025 06/24/2025 6 :20 PM EDT documented as of this encounter Care Teams Paint Line Operator Relationship Specialty Start Date End Date Michael Chávez MD [address] [place] [address] PCP - General 10/22/13 documented as of this encounter
--- OUTSIDE RECORDS SUMMARY | 2025-07-14 13:50 | XMS_ITS | Encounter Summary ---
Author Organization [facility] Address [address] [facility], [address] [place] [address] Care Team Providers Care Terrazzo Tile Setter Name Role Phone Michael Chávez MD Primary Care Provider [phone] Reason for Visit * Reason Comments Medication Refill Encounter Details Date Type Department Care Team (Late Contact Info) Description 05/30/2020 Refill [facility]ST[facility] GYNECOLOGY [address] [place] [address] [address] [place] [phone] Jesica Cantor, FLAME CUTTING MACHINE OPERATOR HELPER - [address] [place] [address] Medication Refill Social History Tobacco Use Types Packs/Day Years [...] Encounters Date Type Department Care Team (Late Contact Info) Description 09/14/2025 1:45 PM EST Office Visit [facility] OBST[facility]RICS & GYNECOLOGY Part of [address] [place] [address] Lizbet Griffin DO [address] [facility] [address] [place] [address] yearly documented as of this encounter Visit Diagnoses Diagnosis Anovulation Female infertility associated with anovulation documented in this encounter Additional Health Concerns Infection Onset Date Last Indicated Resolved Time COVID-19 (Rule Out) 07/11/2021 07/11/2021 07/12/20 12:53 PM EDT C-diff Rule Out 02/14/2025 02/14/2025 02/14/2025 7 :04 PM EDT C-diff Rule Out 06/24/2025 06/24/2025 06/24/2025 6 :20 PM EDT documented as of this encounter Care Teams Terrazzo Tile Setter Relationship Specialty Start Date End Date Michael Chávez MD [address] [place] [address] PCP - General 10/22/13 documented as of this encounter
--- OUTSIDE RECORDS SUMMARY | 2025-07-14 13:51 | XMS_ITS | Encounter Summary ---
Author Organization [facility] Address [address] [place] [address] Care Team Providers Care Supervisor Boiler Repair Name Role Phone Michael Chávez MD Primary Care Provider [phone] Stalin Clarke MD Unavailable Michele Peterson Irwin DO Unavailable Encounter Details Date Type Department Care Team (Late Contact Info) Description 08/18/2024 Orders Only [facility] [address] [place] [address] Stalin Clarke MD [address] [place] [address] Social History Tobacco Use Types [...] 09/28/2025 11:00 AM EST Office Visit [facility] [address] [place] [phone] Stalin Clarke MD [address] [place] [address] documented as of this encounter Procedures Procedure Name Priority Date/Time Associated Diagnosis Comments US THYROID Routine 08/18/2024 9:08 AM EST documented in this encounter Results * US thyroid (08/18/2024 9:08 AM EST) Anatomical Region Laterality Modality Head, Neck Ultrasound us Stalin Clarke MD IMG US PROCEDURES Final Resul t documented in this encounter Visit Diagnoses Not on filedocumented in this encounter Care Teams Supervisor Boiler Repair Relationship Specialty Start Date End Date Michael Chávez MD PCP - General Family Medicine 02/07/24 Stalin Clarke MD [address] [place] [address] Referring Physician Endocrinology 10/27/24 Michele Peterson DO [address] [facility] [place] [address] Otolaryngology 10/27/24 documented as of this encounter
--- OUTSIDE RECORDS SUMMARY | 2025-07-14 13:51 | XMS_ITS | Encounter Summary ---
Author Organization [facility] Address [address] [facility], [address] [place] [address] Care Team Providers Care Senior Product Engineer Name Role Phone Michael Chávez MD Primary Care Provider [phone] Reason for Referral * Imaging (Routine) - Closed Specialty Diagnoses / Procedures Referred By Contac t Referred To Contact Radiology Diagnoses Elevated LFTs RUQ pain Procedures US ABDOMEN LIMITED Michael Chávez MD [address] [place] [address] Phone: tel: fax: Referral ID Status Reason Start Date Expiration Date Visits Re quested Visits Authorized [id number] Closed 12/05/2021 12/05/2022 2 2 Encounter Details Date Type Department Care Team (Latest Contact Info) Description 12/05/2021 Transcribe Orders [facility] Pre Access [address] [phone] Michael [place] [address] [place], [place] [phone] Elevated LFTs (Primary Dx); RUQ pain Social [...] Description 09/14/2025 1:45 PM EST Office Visit [facility] OBSTETRICS & GYNECOLOGY Part of [address] [place] [phone] Lizbet Griffin, DO [address] [place] [address] [address] [place], [place] [phone] yearly documented as of this encounter Results [...] documented as of this encounter Care Teams Senior Product Engineer Relationship Specialty Start Date End Date Michael Chávez MD [address] [place] [address] PCP - General 10/22/13 documented as of this encounter
--- OUTSIDE RECORDS SUMMARY | 2025-07-14 13:51 | XMS_ITS | Encounter Summary ---
Author Organization [facility] Address [address] [facility] [place] [address] Care Team Providers Care Continuity Person Name Role Phone Michael Chávez MD Primary Care Provider [phone] Reason for Referral * Imaging (Routine) - Open Specialty Diagnoses / Procedures Referred By Contlon t Referred To Contact Radiology Diagnoses Nausea Loss of weight Chronic abdominal pain Procedures NM GASTRIC EMPTYING Steffi Bermudez APRN - CNP [address] [place] [address] [place] [phone] Phone: tel: fax: Referral ID Status Reason Start Date Expiration Date Visits Re quested Visits Authorized [id number] Open 06/30/2025 06/30/2026 1 1 Encounter Details Date Type Department Care Team (Late st Contact Info) Description 06/30/2025 Transcribe Orders [facility] Pre Access [address] [place] [address] [facility] - CNP [address] [place] [address] [place] [address] Nausea (Primary Dx); Loss of weight; Chronic abdominal pain Social History Tobacco Use Types Packs/Day Years Used Date Smoking Tobacco: Former Cigarettes 0.3 10 1 - 07/14/2018 Smokeless Tobacco: Never Comments:Still on patches Alcohol Use Standard Drinks/Week Comments No 0 (1 standard drink = 0.6 oz pur e alcohol) [facility] Utilities Answer Date Recorded In the past 12 months has th e electric, gas, oil, or water company threatened [...] any time in the past 12 m [facility], were you homeless or living in a retirement (including now)? No 02/14/2025 Food Insecurity Answer [...] Description 09/14/2025 1:45 PM EST Office Visit [facility] OBSTETRICS & GYNECOLOGY Part of [address] [place] [address] Lizbet Griffin, [facility] [place] [address] yearly documented as of this encounter Results * NM GASTRIC EMPTYING [...] is noted. IMPRESSION: 1. Delayed gastric emptying. Steffi Bermudez STEWARD/STEWARDESS DECK - HEMATOLOGY SUPERVISOR IMG NM ORDERABLE S Final Result documented in this encounter Visit Diagnoses Diagnosis Nausea- Primary Nausea alone Loss of weight Chronic abdominal pain Abdominal pain, unspecified site Nausea Nausea alone Loss of weight Chronic abdominal pain Abdominal pain, unspecified site documented in this encounter Care Teams Continuity Person Relationship Specialty Start Date End Date Michael Chávez MD [address] [place] [address] PCP - General 10/22/13 documented as of this encounter
--- OUTSIDE RECORDS SUMMARY | 2025-07-14 13:51 | XMS_ITS | Patient Health Record ---
Author Organization [facility] in [place] Address [address] [place] [address] Care Team Providers Care Patient Portal Concierge Name Role Phone SUZE CHÁVEZ MD Primary Care Provider Suze Chávez Unavailable [phone] Allergies Allergen (clinical drug ingredient) Drug/Non Drug Allergy documented on EMR Reaction Allergy Type Onset Date Status Zofran headache Drug Allergy Active Latex Latex unknown Allergy Active Results Component Value Reference Range Notes US APPENDIX Reviewed date:03/14/2025 04:24:24 PM Interpretation: Performing Lab: Notes/Report: Source Facility: [place] [address] Ultrasound Report Signed Patient: KRISTEN LEWIS MR#: [id number] : 1990 Acct:[id number] Age/Sex: 34 / F ADM Date: 03/12/25 Loc: US Attending Dr: Carson Chávez M.D. Ordering Physician: Carson Chávez M.D. Date of Service: 03/12/25 Procedure(s): US appendix Accession Number(s): [id number] cc: Carson Chávez M.D. [place] [id number] Patient Name: KRISTEN LEWIS MRN: [id number] date: 1990 Sex: F Assigned Patient Location: US Current Patient Location: US Accession/Order Number: [id number] Exam Date: 03/12/2025 17:00 Report Date: 03/12/2025 17:04 At the request of: CARSON CHÁVEZ MD Procedure: US appendix US appendix 03/12/2025 4:38 PM SIGNS AND SYMPTOMS: RLQ Pain R10.31 PROTOCOL: Limited ultrasound of the abdomen and the right lower quadrant/region of the appendix with grayscale and color Doppler sonographic imaging COMPARISON: None FINDINGS: Grayscale and color Doppler sonographic images demonstrate loops of bowel within the right lower quadrant. The appendix is not readily identified. There is no evidence of free fluid US/US appendix IMPRESSION: Nonvisualization of the appendix with right lower quadrant ultrasound. There is ongoing clinical concern for appendicitis, follow-up with contrast-enhanced CT of the abdomen and pelvis is recommended. Impression dictated by: Florentino Scott M.D. 03/12/2025 5:04 PM Dictation Location: [place] [address] Electronically authenticated by: [id number] Y Date: 03/12/2025 17:04 Dictated By: Florentino Scott M.D. Signed By: 03/12/251706 DD/ 03 TD/TT: Video Intern: CBC AND AUTO DIFF * Reviewed date:09/23/2024 07:45:02 PM Interpretation: Performing Lab:[facility], [facility] [place] [address] [place] [address] PH:[phone] Notes/Report: WBC Count 5.8 3.5-11.0 k/uL RBC Count 4.73 4.00-5.20 m/uL Hemoglobin 13.7 12.0-16.0 g/dL Hematocrit 37.6 36.0-46.0 % MCV 79.5 80.0-100.0 fL MCH 29.0 26.0-34.0 pg MCHC 36.4 31.0-37.0 g/dL RDW 12.9 12.1-15.2 % Platelet Count 242 140-450 k/uL MPV 9.6 6.0-12.0 fL Neutrophil (Seg) 63 47-75 % Lymphocyte 28 15-40 % Monocyte 7 4-8 % Eosinophil 2 0-5 % Basophil 0 0-2 % Immature Granulocyte 0 0-5 % Abs.Neutrophil (Seg) 3.62 2.5-7.0 k/uL Abs. Lymph 1.61 1.00-4.80 k/uL Abs. Monocyte 0.42 0.00-1.00 k/uL Abs. Eosinophil 0.13 0.00-0.40 k/uL Abs. Basophil 0.02 0.00-0.20 k/uL Abs.Imm.Granulocyte 0.01 0.00-0.30 k/uL FREE T3 Reviewed date:09/23/2024 07:45:02 PM Interpretation: Performing Lab:[facility], [address] [place] [address] PH:[phone] Notes/Report: T3, Free 3.30 2.00-4.40 pg/mL HGB A1C (GLYCO-HGB) Reviewed date:09/23/2024 07:45:02 PM Interpretation: Performing Lab:[facility], [address] [place] [address] PH:[phone] Notes/Report: Hemoglobin A1C 4.5 4.0-6.0 % Estimated Ave Gluc 82 The ADA and AACC recommend providing the estimated average glucose result to permit better patient understanding of their HBA1c result. IRON Reviewed date:09/23/2024 07:45:02 PM Interpretation: Performing Lab:[facility], [address] [place] [address] PH:[phone] Notes/Report: Iron 45 37-145 ug/dL LIPID PANEL Reviewed date:09/23/2024 07:45:02 PM Interpretation: Performing Lab:[facility], [address] [place] [address] PH:[phone] Notes/Report: Cholesterol 121 0-199 mg/dL Cholesterol Guidelines: <200 Desirable 200-240 Borderline >240 Undesirable Cholesterol,HDL 33 >40 mg/dL HDL Guidelines: <40 Undesirable 40-59 Borderline >59 Desirable Cholesterol,LDL 55 0-100 mg/dL LDL Guidelines: <100 Desirable 100-129 Near to/above Desirable 130-159 Borderline >159 Undesirable Direct (measured) LDL and calculated LDL are not interchangeable tests. Chol/HDL Ratio 3.7 Triglycerides 167 <150 mg/dL Triglyceride Guidelines: <150 Desirable 150-199 Borderline 200-499 High >499 Very high Based on AHA Guidelines for fasting triglyceride, July 2012. Cholesterol,VLDL 33 1-30 mg/dL Surgical Pathology ([facility]) Reviewed date:11/28/2024 02:05:17 PM Interpretation: Performing Lab: Notes/Report: Path Number: [id number] -- Diagnosis -- Right labia skin, biopsy: -Benign polypoid neurotized nevus. Pavan Davis M.D. Electronically Signed Out kristel/11/05/2024 Clinical Information Pre-Op Diagnosis: LABIAL SKIN TAG Operative Findings: RIGHT LABIA MINORA mj Source of Specimen A: RIGHT LABIA MINORA SKIN TAG Gross Description KRISTEN LEWIS, LABIAL SKIN TAG Received in formalin is a 0.3 x 0.3 x 0.3 cm oro papule. Inked intact 1cs. tm Iris Girard/mj:11/04/2024 Microscopic Description Microscopic examination performed. Sections show polypoid skin with a collection of spindled type cells with light wavy pink cytoplasm that are positive for Melan triple stain and S100 immunostains, confirming neurotized nevus. Controls react as expected. Processing Lab: [address] [address] Interpretation Performed at [address] [address] SURGICAL PATHOLOGY CONSULTATION Patient Name: KRISTEN LEWIS [facility] Rec: [id number] [facility] ANATOMIC PATHOLOGY [address] [place] [address]. [place] [id number] T4 Reviewed date:11/28/2024 02:05:17 PM Interpretation: Performing Lab:[facility], [address] [place] [address] PH:[phone] Notes/Report: Thyroxine T4 10.2 4.5-11.7 ug/dL CBC AND AUTO DIFF * Reviewed date:11/28/2024 02:05:17 PM Interpretation: Performing Lab:[facility], [address] [facility] [address] [place] [address] PH:[phone] Notes/Report: WBC Count 5.6 3.5-11.0 k/uL RBC Count 5.05 4.00-5.20 m/uL Hemoglobin 14.2 12.0-16.0 g/dL Hematocrit 40.2 36.0-46.0 % MCV 79.6 80.0-100.0 fL MCH 28.1 26.0-34.0 pg MCHC 35.3 31.0-37.0 g/dL RDW 12.7 12.1-15.2 % Platelet Count 301 140-450 k/uL MPV 9.6 6.0-12.0 fL Neutrophil (Seg) 62 47-75 % Lymphocyte 30 15-40 % Monocyte 6 4-8 % Eosinophil 2 0-5 % Basophil 0 0-2 % Immature Granulocyte 0 0-5 % Abs.Neutrophil (Seg) 3.42 2.5-7.0 k/uL Abs. Lymph 1.67 1.00-4.80 k/uL Abs. Monocyte 0.36 0.00-1.00 k/uL Abs. Eosinophil 0.11 0.00-0.40 k/uL Abs. Basophil 0.02 0.00-0.20 k/uL Abs.Imm.Granulocyte 0.01 0.00-0.30 k/uL FREE T3 Reviewed date:11/28/2024 02:05:17 PM Interpretation: Performing Lab:[facility], [address] [place] [address] PH:[phone] Notes/Report: T3, Free 3.27 2.00-4.40 pg/mL IRON Reviewed date:11/28/2024 02:05:17 PM Interpretation: Performing Lab:[facility], [address] [place] [address] PH:[phone] Notes/Report: Iron 49 37-145 ug/dL FERRITIN Reviewed date:11/28/2024 02:05:17 PM Interpretation: Performing Lab:[facility], [address] [place] [address] PH:[phone] Notes/Report: Ferritin 33 15-150 ng/mL FERRITIN Reference Ranges: Adult Males 20 - 60 years: 30 - 400 ng/mL Adult females 17 - 60 years: 13 - 150 ng/mL Adults greater than 60 years: no established reference range Pediatrics: no established reference range TSH Reviewed date:11/28/2024 02:05:17 PM Interpretation: Performing Lab:[facility], [address] [place] [address] PH:[phone] Notes/Report: Thyroid Stim. Horm. 1.03 0.27-4.20 uIU/mL CBC AUTO DIFF Reviewed date:03/15/2025 08:56:40 PM Interpretation: Performing Lab: Notes/Report: [facility] , White Blood Count 9.4 4.0-11.0 10 3/uL Red Blood Count 5.08 4.20-5.40 10 6/uL Hemoglobin 13.8 12.0-16.0 g/dL Hematocrit 39.6 36.0-48.0 % Mean Corpuscular Volume 78.0 81.0-99.0 fL Mean Corpuscular Hemoglobin 27.2 26.7-34.0 pg Mean Corpuscular HGB Conc 34.8 29.9-35.2 g/dL Red Cell Distribution Width 13.1 11.0-15.0 % Platelet Count 339 150-450 10 3/uL Mean Platelet Volume 10.6 9.5-13.5 fL Neutrophils Percent Auto 64.9 43.0-75.0 % Lymphocytes Percent Auto 25.1 20.5-60.0 % Monocytes Percent Auto 8.4 1.7-12.0 % Eosinophils Percent Auto 1.0 0.9-7.0 % Basophils Percent Auto 0.4 0.2-2.0 % Immature Granulocytes Pct Auto 0.2 0.0-0.5 % Neutrophils Absolute Auto 6.1 1.4-6.5 10 3/uL Lymphocytes Absolute Auto 2.4 1.2-3.8 10 3/uL Monocytes Absolute Auto 0.8 0.3-0.8 10 3/uL Eosinophils Absolute Auto 0.1 0.0-0.7 10 3/uL Basophils Absolute Auto 0.0 0.0-0.1 10 3/uL Immature Granulocytes Abs Auto 0.02 0.00-0.03 10 3/uL Performing Lab: see note ML - [facility] LB LACTATE or LACTIC ACID Reviewed date:03/15/2025 08:56:40 PM Interpretation: Performing Lab: Notes/Report: [facility] , Lactate/Lactic Acid 1.8 0.4-2.0 mmol/L Performing Lab: see note ML - [facility] LB LIPASE Reviewed date:03/15/2025 08:56:40 PM Interpretation: Performing Lab: Notes/Report: [facility] , Lipase 61.0 16.0-77.0 U/L Performing Lab: see note ML - [facility] LB PROF 14(COMP METB) Reviewed date:03/15/2025 08:56:40 PM Interpretation: Performing Lab: Notes/Report: [facility] , Sodium 143 136-145 mmol/L Potassium 3.0 3.5-5.1 mmol/L Chloride 102 98-107 mmol/L Carbon Dioxide 25.2 21.0-32.0 mmol/L Anion Gap 18.8 Glucose 103 74-106 mg/dL Blood Urea Nitrogen 16.0 7.0-18.0 mg/dL Creatinine 0.96 0.55-1.02 mg/dL Estimated GFR ( Evie >60 >=60 mL/min/1.73m 2 Estimated GFR (Non- Soraya >60 >=60 mL/min/1.73m 2 BUN Creatinine Ratio 16.7 Calcium 9.9 8.5-10.1 mg/dL Bilirubin Total 0.5 0.2-1.0 mg/dL Aspartate Amino Transferase 35 15-37 U/L Alanine Aminotransferase 52 14-59 U/L Alkaline Phosphatase 67 46-116 U/L Total Protein 8.3 6.4-8.2 g/dL Albumin Level 4.5 3.4-5.0 g/dL Globulin 3.8 Albumin Globulin Ratio 1.2 Performing Lab: see note ML - [facility] LB HCG Qualitative* Reviewed date:03/15/2025 08:56:40 PM Interpretation: Performing Lab: Notes/Report: [facility] , HCG Qualitative NEGATIVE NEGATIVE Performing Lab: see note ML - [facility] LB UA Micro, reflex to culture Reviewed date:03/15/2025 08:56:40 PM Interpretation: Performing Lab: Notes/Report: [facility] , Color Urine DK. YELLOW YELLOW Clarity Urine CLEAR CLEAR Specific [place] Urine 1.010 1.005-1.025 pH Urine 5.5 5.0-9.0 Protein Urine 30 NEG/TRACE mg/dL Glucose Urine UA NEGATIVE NEGATIVE mg/dL Bilirubin Urine NEGATIVE NEGATIVE Ketones Urine TRACE NEGATIVE mg/dL Blood Urine NEGATIVE NEGATIVE Nitrite Urine NEGATIVE NEGATIVE Urobilinogen Urine 0.2 0.2-1.0 EU/dL Leukocyte Esterase Urine NEGATIVE NEGATIVE WBC Urine 0-2 NONE SEEN #/HPF RBC Urine NONE SEEN 0-2 #/HPF Bacteria Urine NONE SEEN NONE SEEN #/HPF Mucus Urine NONE SEEN NONE SEEN Squamous Epithelial Cell Urine FEW NONE/RARE #/LPF Crystals Seen? None Seen None Seen #/HPF Cast Seen? SEEN NONE SEEN #/LPF Hyaline Casts Urine RARE Urine Culture Indicated NO Performing Lab: see note ML - [facility] LB RONEY Reviewed date:06/27/2025 01:21:09 PM Interpretation: Performing Lab: Notes/Report: Fecal Neutral Fat Normal Normal Fecal Split Fat Normal Normal (NOTE) INTERPRETIVE INFORMATION: Fecal Fat Qualitative Neutral fats include the monoglycerides, diglycerides, and triglycerides while split fats are the free fatty acids that are liberated from them. Impaired synthesis or secretion of pancreatic enzymes or bile may cause an increase in neutral fats while an increase in split fats suggests impaired absorption of nutrients. Performed By: [employer] [address] [place] [address] [employer] Valve Repairer: Yuriy Cardenas MD, PhD CLIA Number: [id number] TEST PERFORMED BY [email or web address] [address] [place] [address] TSH Reviewed date:09/23/2024 07:45:02 PM Interpretation: Performing Lab:[facility], [address] [place] [address] PH:[phone] Notes/Report: Thyroid Stim. Horm. 0.86 0.30-5.00 uIU/mL INSULIN Reviewed date:09/23/2024 07:45:02 PM Interpretation: Performing Lab:[facility], [facility] [place] [address] PH:[phone] Notes/Report: Collection Info. 1050 Insulin 22.5 Reference Range Fastin.6-24.9 30 min: 20-112 60 min: 29-88 90 min: 26-84 120 min: 22-79 COMPREHENSIVE METABOLIC PANE L Reviewed date:09/23/2024 07:45:02 PM Interpretation: Performing Lab:[facility], [address] [place] [address] PH:[phone] Notes/Report: NA (Sodium) 139 135-144 mmol/L K (Potassium) 3.8 3.7-5.3 mmol/L Chloride 101 98-107 mmol/L CO2 21 20-31 mmol/L Anion Gap 17 9-17 mmol/L Glucose 105 70-99 mg/dL BUN (Urea N) 11 6-20 mg/dL Creatinine 0.6 0.5-0.9 mg/dL eGFR >90 >60 mL/min/1.73m2 These results are not intended for use [...] following therapy that affects renal tubular secretion. BUN/CRE Ratio 18 9-20 Calcium 9.8 8.6-10.4 mg/dL Protein, Total 7.4 6.4-8.3 g/dL Albumin 4.7 3.5-5.2 g/dL Bilirubin, Total 0.3 0.3-1.2 mg/dL Alkaline Phos 57 35-104 U/L ALT 51 5-33 U/L AST 38 <32 U/L T4 Reviewed date:09/23/2024 07:45:02 PM Interpretation: Performing Lab:[facility], [address] [place] [address] PH:[phone] Notes/Report: Thyroxine T4 10.9 4.5-11.7 ug/dL APEF Reviewed date:06/30/2025 12:32:34 PM Interpretation: Performing Lab: Notes/Report: Pancreatic Elastase >800 >=100 ug/g (NOTE) REFERENCE INTERVAL: Pancreatic Elastase Fecal by Immunoassay Less than 100 ug/g............Severe insufficiency 100 - 199 ug/g................Mode rate insufficiency 200 ug/g or greater...........Normal INTERPRETIVE INFORMATION: Pancreatic Elastase Fecal by Immunoassay Reference intervals do not apply for infants less than one month old. Performed By: [employer] [address] [place] [address] [employer] Valve Repairer: Yuriy Cardenas MD, PhD CLIA Number: [id number] TEST PERFORMED BY [email or web address] [address] [place] [address] Reason For Referral Reason +FH colon cancerl - Hx Polyps Diagnosis 1 Well adult (Z00.00) Referral Organization [facility] Referring Provider First Name Suze Referring Provider Last Name Kyler Referring Provider [facility] Referred Provider Ruslan Li Referred Provider Specialty General Surg rc Referral Priority Routine Reason FH of colon cancer, personal history of polyp Diagnosis 1 Colon polyp (K63.5) Referral Organization [facility] Referring Provider First Name Suze Referring Provider Last Name Kyler [facility]erred [facility] Pete Frances Referred Provider Specialty Surgery Referral Priority Routine Reason colonoscopy Diagnosis 1 Colon polyp (K63.5) Referral Organization [facility] Referring Provider First Name Suze Referring Provider Last Name Jacieleb [facility] Referred Provider Pete Frances Referred Provider Specialty Surgery Referral Priority Routine Diagnosis 1 Colon polyp (K63.5) Referral Organization [facility] Referring Provider First Name Suze Referring Provider Last Name Kyler Referring Provider [facility] Referred Provider Specialty Gastroentero logy Referral Priority Routine Diagnosis 1 Gastroparesis (K31.8 4) Referral Organization [facility] Referring Provider First Name Suze Referring Provider Last Name Kyler Referring Provider [facility] Referred Provider TB, General Office Associate Referred Provider Specialty Dietitian Referral Priority Routine Medications Medication SIG (Take, Route, Frequency, Duration) Notes Start Date End Date Status Venlafaxine HCl ER 150 MG TAKE 1 CAPSULE BY MOUTH DAILY WITH FOOD; Duration: 30 days Active hydrOXYzine Pamoate 25 MG TAKE 1 CAPSULE BY MOUTH FOUR TIMES DAILY NEEDED; Duration: 30 days Active Omeprazole 40 MG TAKE 1 CAPSULE BY [facility] ONCE DAILY 30 MINUTES BEFORE MORNING MEAL; Duration: 30 Active (w/Iron & FA) 27-0.8 MG 1 tablet Orally Once a day Active amLODIPine Besylate 5 MG 1 tablet Orally Twice Daily; Duration: 30 days 10/29/2023 Active SEROquel 50 MG 1 tablet at bedtime Orally Once a day; Duration: 30 days 11/14/2023 Active Nicotine 14 MG/24HR APPLY 1 PATCH TO THE SKIN DAILY; Duration: 30 days Active Loratadine 10 MG TAKE 1 TABLET BY FIONA TH ONCE DAILY; Duration: 30 Active Daypro 600 MG 2 tabs Orally every morning; Duration: 30 10/28/2023 Active Fluticasone Propionate 50 MCG/ACT USE 1 SPRAY IN EACH NOSTRIL ONCE DAILY; Duration: 30 Active Valium 5 MG 1 tablet as needed Orally once about 1 hour before procedure; Duration: 1 days 10/27/2024 Active Vitamin D 50 MCG (2000 UT) TAKE 1 TABLET BY MOUTH ONCE DAILY; Duration: 30 Active Promethazine HCl 25 MG 1 tablet as neede d Orally q6h prn; Duration: 10 days 03/12/2025 Active metroNIDAZOLE 500 MG 1 tablet Orally Thr ee times a day; Duration: 10 03/12/2025 Active valACYclovir HCl 500 MG 1 tablet Orally tid; Duration: 10 days 09/17/2024 Active Magnesium Oxide 400 MG 1 tablet Orally b id; Duration: 30 days 03/17/2024 Active metFORMIN HCl ER 500 MG 2 tablets Orally BID Active Levothyroxine Sodium 137 MCG 1 tablet in the morning on an empty stomach Orally Once a day Active Diflucan 100 MG 1 tablet Orally janeen y; Duration: 10 days 03/12/2025 Active Protonix 40 MG 1 tablet Orally Once a day; Duration: 30 days 03/12/2025 Active Ciprofloxacin HCl 500 MG 1 tablet Orally every 12 hrs; Duration: 10 days 03/12/2025 Active Social History Tobacco Use: Social History Observation Description Date Details (start date - stop date) Former Smoker 10/14/2007 - 10/14/2022 Tobacco Use/Smoking Question Answer Notes Patient is a former smoker When did you start smoking? 10/14/2007 When did you stop smoking? 10/14/2022 Alcohol Screen (Audit-C) Question Answer Notes Did you have a drink contain ing alcohol in the past year? Yes How often did you have 6 or more drinks on one occasion in the past year? Never (0 point) How many drinks did you have on a typical day when you were drinking in the past year? 1 or 2 drinks (0 point) How often did you have a dri nk containing alcohol in the past year? Monthly (2 points) Points 2 Interpretation Negative AUDIT-C (Standard) Question Answer Notes Did you have a drink contain ing alcohol in the past year? Yes How often did you have six o r more drinks on one occasion in the past year? Never (0 point) How many drinks did you have on a typical day when you were drinking in the past year? 1 or 2 drinks (0 point) How often did you have a dri nk containing alcohol in the past year? Monthly or less (1 point) Points 1 Interpretation Negative Problems Problem Type SNOMED Code ICD Code Onset Dates Problem Status W/U Status Risk Notes Problem Periapical abscess (disorder) (493338840) Periapical abscess without sinus (K04.7) Active confirmed Problem Gastroparesis (436399414) Gastroparesis (K31.84) Active confirmed Problem Edema (33407071) Edema (R60.9) Active confirmed Problem Thyroid nodule (869903170) Thyroid nodule (E04.1) Active confirmed Problem Cold sore (0549828) Cold sore (B00.1) Active confirmed Problem Well adult (599124374) Well adult (Z00.00) Active confirmed Problem Right lower quadrant pain (692465720) Right lower quadrant abdominal pain (R10.31) Active confirmed Problem Iron deficiency anemia (24735550) Iron deficiency anemia (D50.9) Active confirmed Problem Contact dermatitis (85710229) Contact dermatitis (L25.9) Active confirmed Problem 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 Problem Facial pain (16064905) Facial pain (R51.9) Active confirmed Vital Signs Blood pressure diastolic 70 mm Hg 03/12/2025 Height 65 in 03/12/2025 Blood pressure systolic 118 mm Hg 03/12/2025 Weight 206.4 lbs 03/12/2025 BMI 34.34 kg/m2 03/12/2025 Encounters Encounter Location Date Provider Diagnosis [facility] [address] [place] [address] 11/26/2024 Suze Chávez Colon polyp K63.5 ; Iron deficiency anemia D50.9 and Fatigue R53.83 [facility] [address] [place] [address] 11/28/2024 Suze Chávez [facility] [address] [place] [address] 11/30/2024 Suze Hoy [facility] [address] [facility] [place] [address] 03/14/2025 Suze Hoy Right lower quadrant abdominal pain R10.31 [facility] [address] [facility] [address] 07/08/2025 Suze Hoy Gastroparesis K31.8 4 [facility] [address] [facility] [address] 09/21/2024 Suze Hoy Well adult Z00.00 [facility] [address] [facility] [place] [address] 09/23/2024 Suze Hoy [facility] [address] [facility] [place] [address] 10/22/2024 Suze Hoy [facility] [address] [place] [facility] [place] [address] 10/22/2024 Suze Hoy Colon polyp K63.5 [facility] [address] [facility] [place] [address] 10/26/2024 Suze Hoy [facility] [address] [facility] [place] [address] 10/27/2024 Suze Hoy [facility] [address] [facility] [address] 09/18/2024 Suze Hoy Colon polyp K63.5 [facility] [address] [place] [facility] [place] [place] [address] 09/17/2024 Suze Hoy Well adult Z00.00 [facility] [address] [facility] [place] [address] 03/12/2025 Suze Hoy Right lower quadrant abdominal pain R10.31 Assessments Encounter Date Diagnosis (ICD Code) Assessment Notes Treatment Notes Treatment Clinical Notes Section Notes 09/17/2024 Well adult (ICD-10 - Z00.00) 03/12/2025 Right lower quadrant abdominal pain (ICD-10 - R10.31) 09/18/2024 Colon polyp (ICD-10 - K63.5) 09/21/2024 Well adult (ICD-10 - Z00.00) 10/22/2024 Colon polyp (ICD-10 - K63.5) 11/26/2024 Colon polyp (ICD-10 - K63.5) 11/26/2024 Iron deficiency anemia (ICD-10 - D50.9) 03/14/2025 Right lower quadrant abdominal pain (ICD-10 - R10.31) 07/08/2025 Gastroparesis (ICD-10 - K31.84) 11/26/2024 Fatigue (ICD-10 - R53.83) Plan Of Treatment Pending Test Test Name Order Date CMP (COMPLETE METABOLIC PANEL) 4 CMP (COMPLETE METABOLIC PANEL) CMP (COMPLETE METABOLIC PANEL) 4 HEMOGLOBIN A1C (GLYCO) 09/17/2024 HEMOGLOBIN A1C (GLYCO) 10/28/2023 IRON, TOTAL 10/28/2023 IRON, TOTAL 09/17/2024 LIPID PANEL (CHOL/TRIG/HDL/LDL) 09/17/20 24 LIPID PANEL (CHOL/TRIG/HDL/LDL) 10/28/19 24 CBC WITH DIFF 10/28/2023 CBC WITH DIFF 09/17/2024 US Lower Extremity LT 03/17/2024 FECAL OCCULT BLOOD 03/17/2024 Insulin Level 09/17/2024 COMPREHENSIVE METABOLIC PROFILE WITH GFR 04/29/2024 CBC W/AUTO DIFF 04/29/2024 CBC W/AUTO DIFF 05/22/2024 CBC W/AUTO DIFF 11/26/2024 STOOL OCCULT BLOOD 10/28/2023 NM CARDIOLITE W/EXER STRESS 11/04/2023 CBC AUTO DIFF 06/21/2024 CRP 07/03/2024 WILL-NEAL VIRUS (EBV) AB PROFILE 06/15 FERRITIN 06/21/2024 FERRITIN 07/03/2024 FERRITIN 05/22/2024 FERRITIN 11/26/2024 IRON 11/26/2024 IRON 05/22/2024 LIVER PROFILE 07/03/2024 MAGNESIUM 04/29/2024 PROF 14(COMP METB) 06/21/2024 TESTOSTERONE, FREE,DIRECT, TOTAL 024 CT ABD and PELV W CON 03/14/2025 THYROID PANEL (T4/TSH/FREE T3) 02/13/202 5 THYROID PANEL (T4/TSH/FREE T3) 4 THYROID PANEL (T4/TSH/FREE T3) 4 THYROID PANEL (T4/TSH/FREE T3) 4 Insurance Providers Payer Name Payer Address Payer Phone Subscriber Number Group Number Insured Name Patient Relationship to Insured Coverage Start Date Coverage End Date [employer] [place] [address] [facility] N ID [phone] Kristen Lewis Self - patient is the insured Medications Administered Medication Instructions Date of Administration Dosage Notes Promethazine 25mg 03/12/2025 25 mg Medical (General) History Medical History History ICD Code Fatty (change of) liver, not elsewhere c lassified K76.0 Anemia D64.9 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
--- OUTSIDE RECORDS SUMMARY | 2025-07-14 13:51 | XMS_ITS | Encounter Summary ---
Author Organization [facility] Address [address] [facility], [address] [place] [address] Care Team Providers Care Senior Warehouse Clerk Name Role Phone Michael Chávez MD Primary Care Provider [phone] Encounter Details Date Type Department Care Team (Latest Contact Info) Description 05/23/2022 Transcribe Orders [place] Pre Access [address] [place] [address] Pinky Orozco, PERSONNEL OFFICER - RAIL TRACK MAINTAINER [address] [place], [place] [phone] Lump at site of vaccination (Primary Dx) [...] Description 09/14/2025 1:45 PM EST Office Visit [facility] Part of [address] [place] [phone] Lizbet Griffin, DO [address] [place] [address] [address] [place] [address] yearly documented as of this encounter Visit Diagnoses Diagnosis Lump at site of vaccination- Primary documented in this encounter Additional Health Concerns Infection Onset Date Last Indicated Resolved Time C-diff Rule Out 02/14/2025 02/14/2025 02/14/2025 7 :04 PM EDT C-diff Rule Out 06/24/2025 06/24/2025 06/24/2025 6 :20 PM EDT documented as of this encounter Care Teams Senior Warehouse Clerk Relationship Specialty Start Date End Date Michael Chávez MD [address] [place] [address] PCP - General 10/22/13 documented as of this encounter
--- OUTSIDE RECORDS SUMMARY | 2025-07-14 13:51 | XMS_ITS | Encounter Summary ---
Author Organization [facility] Address [address] [facility], [address] [place] [address] Care Team Providers Care Master Electrician Name Role Phone Michael Chávez MD Primary Care Provider [phone] Reason for Referral * Imaging (Routine) - Closed Specialty Diagnoses / Procedures Referred By Contac t Referred To Contact Radiology Diagnoses Tooth infection Procedures CT SINUS WO CONTRAST Michael Chávez MD [address] [place] [address] Phone: tel: fax: Referral ID Status Reason Start Date Expiration Date Visits Re quested Visits Authorized [id number] Closed 03/08/2023 03/07/2024 1 1 Encounter Details Date Type Department Care Team (Latest Contact Info) Description 03/08/2023 Transcribe Orders [place] Pre Access [address] [place] [phone] Michael Chávez MD [address] [place] [phone] Tooth infection (Primary Dx) Social History Tobacco [...] Description 09/14/2025 1:45 PM EST Office Visit [facility]OLOGY Part of [address] [place] [phone] Lizbet Griffin, DO [address] [facility] [address] [place] [address] yearly Scheduled Orders Name Type Priority Associated [...] documented as of this encounter Care Teams Master Electrician Relationship Specialty Start Date End Date Michael Chávez MD [address] [place] [address] PCP - General 10/22/13 documented as of this encounter
--- OUTSIDE RECORDS SUMMARY | 2025-07-14 13:51 | XMS_ITS | Clinical Summary ---
Author Organization [facility] Address [address] [facility], [address] [place] [address] Care Team Providers Care Farmworker Vegetable Name Role Phone Michael Chávez MD Primary Care Provider [phone] Allergies Active Allergy Reactions Criticality Noted Date [...] 1 spray by Nasal route daily 02/24/2020 Active nicotine (NICODERM CQ) 14 MG/24HR Place 1 patch onto the skin every 24 hours Active hydrOXYzine (VISTARIL) 25 MG capsule Take 1 capsule by mouth 4 times daily as needed for Anxiety 08/24/2020 Active venlafaxine (EFFEXOR XR) 75 MG extended release capsule 2 capsules nightly 08/24/2020 Active loratadine (CLARITIN) 10 MG capsule Take 1 capsule by mouth daily Active hyoscyamine (LEVSIN/SL) [address] 1 tablet under the tongue every 6 hours as needed for Diarrhea or Cramping 07/25/2023 Active amLODIPine (NORVASC) 5 MG tablet Take 1 tablet by mouth 2 times daily Active magnesium oxide (MAG-OX) 400 MG tablet Take 1 tablet by mouth 2 times daily 08/20/2024 Active oxaprozin (DAYPRO) 600 MG tablet TAKE 2 TABLETS BY MOUTH EACH MORNING Active QUEtiapine (SEROQUEL) 50 MG tablet Take 1 tablet by mouth nightly Active Vit-Fe Fumarate-FA (M- PLUS) 27-1 MG TABS Take 1 tablet by mouth daily 30 tablet 12 09/08/2024 Active metFORMIN (GLUCOPHAGE-XR) 500 MG extended release tablet TAKE TWO (2) TABLETS BY MOUTH IN THE MORNING AND TAKE TWO (2) TABLETS BY MOUTH AT BEDTIME 120 tablet 10 09/21/2024 Active Active Problems Problem Noted Date Diagnosed [...] Encounters Date Type Department Care Team Description 07/12/2025 Transcribe Orders [place] Pre Access [address] [place], [place] [phone] Steffi Bermudez APRN - SURAJ Metabolic dysfunction-associated steatohepatitis (MASH) (Primary Dx) 07/02/2025 10:03 AM EDT - 07/04/2025 11:59 PM EDT Hospital Encounter [facility] Nuclear Medicine [address] [place], [place] [phone] Discharge Disposition: Home or Self Care 07/02/2025 10:02 AM EDT - 07/04/2025 11:59 PM EDT Hospital Encounter [facility] Medicine [address] [place], [place] [phone] Discharge Disposition: Home or Self Care 07/02/2025 10:01 AM EDT - 07/04/2025 11:59 PM EDT Hospital Encounter [facility] Nuclear Medicine [address] [place], [place] [phone] Nausea; Loss of weight; Chronic abdominal pain Discharge Disposition: Home or Self Care 06/30/2025 Transcribe Orders [place] Pre Access [address] [place] [address] MaleSteffi hampton, PROPERTY LOSS INSURANCE CLAIM ADJUSTER - SURAJ Nausea (Primary Dx); Loss of weight; Chronic abdominal pain 06/24/2025 6:04 PM EDT - 06/24/2025 11:59 PM EDT Hospital Encounter [facility] Laboratory [address] [facility] [place] [address] Discharge Disposition: Home or Self Care from [...] drink = 0.6 oz pur e alcohol) [facility] Utilities Answer Date Recorded [...] any time in the past 12 m [facility], were you homeless or living in a skilled nursing (including now)? No 02/14/2025 Food Insecurity Answer [...] [facility] Part of [address] [place] [address] Lizbet Griffin, DO [address] [facility] [address] [place], [place] [phone] yearly Health Maintenance Due Date Last Done Comments Varicella vaccine (1 of 2 - 13+ 2-dose series) 2002 HIV screen 2004 Hepatitis B vaccine (1 of 3 - 19+ 3-dose series) 2008 Depression Screen 09/30/2024 09/30/2023 Flu vaccine (#1) 05/14/2025 07/27/2024, , 07/19/2022, Additional history exists COVID-19 Vaccine ( season) 2025 Pap smear 08/28/2025 08/28/2022, 06/04/2018 Cervical cancer screen 08/28/2027 HPV (without or with Pap) 08/28/2027 08/28/2022 DTaP/Tdap/Td vaccine (2 - Td or Tdap) 03/22/2032 03/22/2022 Pneumococcal 0-49 years Vaccine Aged Out 07/01/2018 No longer eligible based on patient's age to complete this topic Hepatitis C screen Completed 12/01/2021, 09/20/2020 Diabetes screen Discontinued 09/23/2024, 10/14, 10/02/2022, Additional history exists HPV vaccine (No Doses Required) Completed Hepatitis A vaccine Aged Out No longe [...] Nausea Loss of weight Chronic abdominal pain PANCREATIC ELASTASE, FECAL Routine 06/24/2025 5:20 PM EDT FECAL FAT, QUALITATIVE Routine 5:20 PM EDT HEMOGLOBIN A1C Routine 09/23/2024 10:48 AM EST HUMAN PAPILLOMAVIRUS (HPV) DNA PROBE THIN PREP HIGH RISK Routine 08/28/2022 7:30 AM EST NETWORK CONTROL OPERATOR CYTOLOGY Routine 08/28/2022 7:30 AM EST HEPATITIS PANEL, ACUTE Routine 3:08 PM EST from Last 3 Months or Most Recently Relevant to Health Maintenance Results * NM GASTRIC EMPTYING (07/02/2025 2:47 [...] hours. Quantitative analysis was performed using the Mobibeammean. Medications altering gastric motility are typically held [...] is noted. IMPRESSION: 1. Delayed gastric emptying. Steffibimal Bermudez PROPERTY LOSS INSURANCE CLAIM ADJUSTER - ATM TECHNICIAN IMG NM ORDERABLE S Final Result * Pancreatic elastase, fecal (06/24/2025 5:20 PM EDT) Fecal Pancreatic Elastase-1 >800 >=100 ug/g 06/24/2025 5:20 PM EDT [facility] Comment: (NOTE) REFERENCE INTERVAL: Pancreatic Elastase Fecal by Immunoassay Less than 100 ug/g............Severe insufficiency 100 - 199 ug/g................Moderate insufficiency 200 ug/g or greater...........Normal INTERPRETIVE INFORMATION: Pancreatic Elastase Fecal by Immunoassay Reference intervals do not apply for infants less than one month old. Performed By: [facility] [address] [place] [address] Timber Framer Helper: Yuriy Cardenas MD, PhD CLIA Number: [id number] 06/24/2025 5:20 PM EDT 06/24/2025 6:08 PM EDT Michael Chávez MD BODY FLUIDS AND STOOLS ORDERABL ES Final Result Performing Organization Address [facility] [[email or web address]] de Phone Number [facility] [address] [place] [address], [facility] [phone] [facility] [address] [phone] * Fecal Fat, Qualitative (06/24/2025 5:20 PM EDT) Fecal Neutral Fat Normal Normal 025 5:20 PM EDT [facility] Fat Qualitative Split Stool Normal Normal 06/24/2025 5:20 PM EDT [facility] Comment: (NOTE) INTERPRETIVE INFORMATION: Fecal Fat Qualitative Neutral fats include the monoglycerides, diglycerides, and triglycerides while split fats are the free fatty acids that are liberated from them. Impaired synthesis or secretion of pancreatic enzymes or bile may cause an increase in neutral fats while an increase in split fats suggests impaired absorption of nutrients. Performed By: [facility] [address] [place] [address] Timber Framer Helper: Yuriy Cardenas MD, PhD CLIA Number: [id number] 06/24/2025 5:20 PM EDT 06/24/2025 6:08 PM EDT Michael Chávez MD BODY FLUIDS AND STOOLS ORDERABL ES Final Result Performing Organization Address [facility] [[email or web address]] de Phone Number [facility] [place] [facility] [address] [address], [facility] [phone] [facility] [address] [phone] * Hemoglobin A1C (09/23/2024 10:48 AM EST) Hemoglobin A1C 4.5 4.0 - 6.0 % 09/23/2024 10:48 AM EST [facility] Estimated Avg Glucose 82 mg/dL 09/23/2024 10:48 AM EST [facility] Comment: The ADA and AACC recommend providing the estimated average glucose result to permit better patient understanding of their HBA1c result. 09/23/2024 10:4 8 AM EST 09/23/2024 10:49 AM EST Michael Chávez MD CHEMISTRY ORDERABLES Final Resu lt Performing Organization Address City/[facility]/ZIP Co de Phone Number [facility] [address] [place] [address], [facility] [phone] [facility] [address] [place], [place] [address] [phone] * Human papillomavirus (HPV) DNA probe thin prep high risk (08/28/2022 7:30 AM EST) Specimen Description .CERVIX 08/28/2022 7:30 AM EST [facility] HPV Sample .THIN PREP 08/28/2022 7:30 AM EST [facility] HPV, Genotype 16 Not Detected Not Detected 08/28/2022 7:30 AM EST [facility] HPV, Genotype 18 Not Detected Not Detected 08/28/2022 7:30 AM EST [facility] HPV, High Risk Other Not Detected Not Detected 08/28/2022 7:30 AM EST [facility] HPV, Interpretation 08/28/2022 7:30 AM EST [facility] Comment: This test amplifies and detects DNA [...] Lizbet Griffin DO HEMATOLOGY ORDERABLES Final Result Performing Organization Address City/[facility]/ZIP Co de Phone Number [facility] [address] [place] [address], [facility] [phone] [facility] [address] [place], [place] [address] [phone] * NETWORK CONTROL OPERATOR Cytology (08/28/2022 7:30 AM EST) Cytology Report INTERPRETATION Cervical material, (ThinPrep vial, Imaging-assisted review): Specimen Adequacy: Satisfactory for evaluation. - Endocervical/trans formation zone component present. Descriptive Diagnosis: Negative for intraepithelial lesion or malignancy. Comments: Specimen was screened at [facility], [address] [facility]. [facility] [address] [employer] Preparation Worker: TAVIA Pitt(ASCP) Electronically Signed Out jaime/09/09/2022 Procedure/Addendum [...] vial, Imaging-assisted review) Clinical History Z01.419 Routine diploma maker exam without abnormal findings Co-Test: ThinPrep Pap with high risk HPV testing GYNECOLOGIC CYTOLOGY REPORT Patient Name: KRISTEN LEWIS [facility] Rec: [id number] Path Number: [id number] [facility] CONSULTING PATHOLOGISTS [facility] ANATOMIC PATHOLOGY [address] [place] [phone] [facility] CERVICAL MATERIAL 08/28/2022 7:30 AM EST 08/29/2022 7:30 AM EST Lizbet Griffin DO PATHOLOGY/CYTOLOGY OR DERABLES Final Result Performing Organization Address [facility]/ZIP Co de Phone Number [facility] [address] [place] [address], [facility] [phone] [place] [address], [facility] [phone] * Hepatitis Panel, Acute (12/01/2021 3:08 PM EST) Hepatitis B Surface Ag NONREACTIVE NONREACTIVE 12/01/2021 3:08 PM EST [facility] Hepatitis C Ab NONREACTIVE NONREACTIVE 12/01/19 3:08 PM EST [facility] Comment: The hepatitis C procedure used in [...] IgM NONREACTIVE NONREACTIVE 11/14 3:08 PM EST [facility] Hep A IgM NONREACTIVE NONREACTIVE 12/01/2021 3:08 PM EST [facility] 12/01/2021 3:0 8 PM EST 12/01/2021 3:09 PM EST Michael Chávez MD IMMUNOLOGY ORDERABLES Final Res ult [facility] [address] [place] [address], [facility] [phone] [phone] from Last 3 Months or Most Recently Relevant to Health Maintenance Insurance [facility] PL[facility] Advance Directives * Full Code (Latest [...] 9:23 AM 07/21/2018 3:54 PM Care Teams Farmworker Vegetable Relationship Specialty Start Date End Date Michael Chávez MD [address] [place] [address] PCP - General 10/22/13
--- OUTSIDE RECORDS SUMMARY | 2025-07-14 13:51 | XMS_ITS | Encounter Summary ---
Author Organization [facility] Address [address] [facility], [address] [place] [address] Care Team Providers Care Game Protector Name Role Phone Michael Chávez MD Primary Care Provider [phone] Reason for Referral * Eval and Treat (Routine) - Open Specialty Diagnoses / Procedures Referred By Contlon t Referred To Contact Nutrition Diagnoses Metabolic dysfunction-associated steatohepatitis (MASH) Steffi Bermudez APRN - CNP [address] [place] [address] [place] [address] Phone: tel: fax: [facility] Diet and Nutrition [address] [place] [address] Phone: tel: Referral ID Status Reason Start Date Expiration Date V isits Requested Visits Authorized [id number] Open Specialty Services Required 07/12/2025 07/12/2026 1 1 Scheduling Instructions [facility] Outpatient Nutrition Services Comments The patient can be scheduled with any member of the group, including the provider with the first available appointments. Encounter Details Date Type Department Care Team (Latest Contact Info) Description 07/12/2025 Transcribe Orders [place] Pre Access [address] [place] [address] Steffi Bermudez APRN - CNP [address] [place] [address] [place] [address] Metabolic dysfunction-associated steatohepatitis (MASH) (Primary Dx) Social History Tobacco Use Types Packs/Day Years Used Date Smoking Tobacco: Former Cigarettes 0.3 10 1 - 07/14/2018 Smokeless Tobacco: Never Comments:Still on patches Alcohol Use Standard Drinks/Week Comments No 0 (1 standard drink = 0.6 oz pur e alcohol) [facility] Utilities Answer Date Recorded In [...] any time in the past 12 m [facility], were you homeless or living in a fpc (including now)? No 02/14/2025 Food Insecurity Answer [...] 1:45 PM EST Office Visit [facility]ECOLOGY Part of [address] [place] [phone] Lizbet Griffin, [address] [facility] [address] [place], [place] [phone] yearly Scheduled Referrals Name Type Priority Associated Diagnoses Orde r Schedule [facility] Outpatient Nutrition Services- [place] Outpatient Referral Routine Metabolic dysfunction-associated steatohepatitis (MASH) Ordered: 07/12/2025 documented as of this encounter Visit Diagnoses Diagnosis Metabolic dysfunction-associated steatohepatitis (MASH)- Primary documented in this encounter Care Teams Game Protector Relationship Specialty Start Date End Date Michael Chávez MD [address] [place] [address] PCP - General 10/22/13 documented as of this encounter
--- OUTSIDE RECORDS SUMMARY | 2025-07-14 13:52 | XMS_ITS | Encounter Summary ---
Author Organization [facility] Address [address] [place] [address] Care Team Providers Care Glue Drier Operator Name Role Phone Steffi Bermudez CNP Unavailable [phone] Michael Chávez MD Primary Care Provider [phone] Encounter Details Date Type Department Care Team (Late st Contact Info) Description 07/05/2025 Orders Only [facility] Medical [place] [facility] [address] [place] [address] [place] [phone] Provider, MD Nancy [address] [place] [address] Social History Tobacco Use Types Packs/Day Years [...] Description 10/19/2025 3:00 PM EST Office Visit [facility] [address] [place] [address] [place] [address] Steffi Bermudez, MODELING MANAGER [address] [place] [address] documented as of this encounter Procedures Procedure Name Priority Date/Time Associated Diagnosis Comments NM GASTRIC EMPTYING SOLID Routine 07/05/2025 7:21 AM EDT documented in this encounter Results * NM gastric emptying solid (07/05/2025 7:21 AM EDT) Anatomical Region Laterality Modality Body Nuclear Medicine Historical Provider MD JOHN NM PROCEDURES Final R esult documented in this encounter Visit Diagnoses Not on filedocumented in this encounter Care Teams Glue Drier Operator Relationship Specialty Start Date End Date Michael Chávez MD [address] [facility] [address] [address] PCP - General Family Medicine 02/11/25 Steffi Bermudez MODELING MANAGER [address] [place] [address] Gastroenterology 01/20/25 documented as of this encounter
--- OUTSIDE RECORDS SUMMARY | 2025-07-14 13:52 | XMS_ITS | Encounter Summary ---
Author Organization [facility] Address [address] [place] [address] Care Team Providers Care Core Shaper Top Name Role Phone Steffi Bermudez CNP Unavailable [phone] Michael Chávez MD Primary Care Provider [phone] Reason for Visit * Reason Onset Date Comments auhtorization 07/01/2025 Encounter Details Date Type Department Care Team (Late st Contact Info) Description 07/01/2025 Telephone [facility] Gastroenterology [address] [place] [address] [place] [address] Rosalinda Alcala, FAINA auhtorization Social History Tobacco Use Types Packs/Day Years [...] PM EDT documented as of this encounter Miscellaneous Notes * Telephone Encounter - Rosalinda Alcala RN - 07/01/2025 9:16 AM EDT Patient calls stating that she is getting her Gastric Emptying Study done at [facility]. Ilana stated that ordering physician would need to get PA for services. Per [place] [employer] Prior Auth Lead Injection Mold Technician - No authorization is needed. Information printed and faxed to Ilana Miranda at [phone] withpatient being made aware of this information documented in this encounter Plan of Treatment Upcoming Encounters Date Type Department Care Team (Late st Contact Info) Description 10/19/2025 3:00 PM EST Office Visit [facility] Gastroenterology [address] [place] [address] [place] [address] Steffi Bermudez CNP [address] [place], [place] [phone] documented as of this encounter Visit Diagnoses Not on filedocumented in this encounter Care Teams Core Shaper Top Relationship Specialty Start Date End Date Michael Chávez MD [address] [facility] [address] PCP - General Family Medicine 02/11/25 Steffi Bermudez CNP [address] [place], [place] [id number] Gastroenterology 01/20/25 documented as of this encounter
--- OUTSIDE RECORDS SUMMARY | 2025-07-14 13:52 | XMS_ITS | Clinical Summary ---
Author Organization [facility] Address [address] [place] [address] Care Team Providers Care Locksmith Apprentice Name Role Phone Steffi Bermudez CNP Unavailable Michael Chávez MD Primary Care Provider [phone] Allergies Active Allergy Reactions Criticality Noted Date Comments Beta-Blockers (Beta-Adrenergic Blocking Agts) Rash Low 03/19/2019 Diltiazem Rash Low 03/29/2020 Latex Anaphylaxis,Rash,Lily rtne ss of breath,Swelling High 07/01/2014 Ondansetron Headache Low 11/16/2017 Migraines Medications amLODIPine (Norvasc) 5 mg tablet Take 1 tablet by mouth twice a day. 10/29/19 24 Active cholecalciferol , vitamin D3, 50 mcg (2,000 unit) capsule Take 1 capsule by mouth in the morning. Active fluticasone (Flonase) 50 mcg/actuation nasal spray 1 spray by Does not apply route in the morning. 02/24/20 20 Active hydrOXYzine pamoate (Vistaril) 25 mg capsule Take by mouth. 08/24/20 20 Active hyoscyamine 0.125 mg dissolvable tablet every 4 (four) hours if needed. 07/25/20 23 Active levothyroxine (Synthroid, Levoxyl) 137 mcg tablet Take 137 mcg by mouth in the morning. 09/29/20 24 025 Active loratadine 10 mg capsule Take 1 capsule by mouth in the morning. Active magnesium oxide (Mag-Ox) 400 mg (241.3 mg magnesium) tablet Take 1 tablet by mouth twice a day. 08/20/20 24 Active metFORMIN XR (Glucophage-XR) 500 mg 24 hr tablet Take 1,000 mg by mouth twice a day. 09/21/20 24 Active nicotine (Nicoderm CQ) 14 mg/[address] 1 patch on the skin in the morning. Active omeprazole (PriLOSEC) [address] capsule Take 1 capsule by mouth in the morning. Active oxaprozin (Daypro) 600 mg tablet Take 1,200 mg by mouth in the morning. Active M- Plus 27 mg iron- 1 mg tablet 1 tablet at bedtime. 12/19/19 25 Active QUEtiapine (SEROquel) 50 mg tablet Take 50 mg by mouth at bedtime. Active valACYclovir (Valtrex) 1 gram tablet if needed. 05/15/20 24 Active venlafaxine XR (Effexor-XR) 150 mg 24 hr capsule at bedtime. 01/19/20 25 Active azelastine (Optivar) 0.05 % ophthalmic solution Administer 1 drop into affected eye(s) twice a day. 01/12/20 25 Active promethazine (Phenergan) 25 mg tabletIndicatio ns:Nausea Take 1 tablet (25 mg) by mouth every 8 (eight) hours if needed for nausea or vomiting. 30 tablet 1 06/29/20 25 025 Active polyethylene glycol (Glycolax) 17 gram/dose powderIndicatio ns:Overflow diarrhea,Consti pation by delayed colonic transit Take 238 g by mouth in 64 oz of water or sportsdrink for a one time bowel cleanse 238 g 07/05/20 25 Active methylcellulose , laxative, (CitruceL Sugar Free) powderIndicatio ns:Overflow diarrhea,Consti pation by delayed colonic transit Mix 1 tablespoon in 8 oz (240 mL) of cold water. Take by mouth once daily. Increase frequency as needed up to 2 tablespoons 3 times daily. 907 g 11 07/05/20 25 Active promethazine (Phenergan) 25 mg tabletIndicatio ns:Nausea Take 1 tablet (25 mg) by mouth every 8 (eight) hours if needed for nausea or vomiting. 30 tablet 1 04/06/20 25 025 Discontinu ed(Reorder ) bisacodyl (Dulcolax) 5 mg EC tabletIndicatio ns:Overflow diarrhea,Consti pation by delayed colonic transit Take 2 tablets (10 mg) by mouth in the morning for 1 day. Use for a one time bowel cleanse. Use in combination with Miralax cleanse. 2 tablet 07/05/20 25 025 Active Problems Problem Noted Date Diagnosed Date Cold sore 06/29/2025 Contact dermatitis 06/29/2025 Edema 06/29/2025 Facial pain 06/29/2025 Iron deficiency anemia 06/29/2025 Periapical abscess 06/29/2025 Acute abdominal pain 02/14/2025 Anemia 02/07/2024 Anxiety 02/07/2024 Colitis 02/07/2024 Endometrial [...] Encounters Date Type Department Care Team Description 07/07/2025 Orders Only [facility] Gastroenterology [address] [place] [address] [place] [address] Steffi Bermudez CNP Metabolic dysfunction-associated steatohepatitis (MASH) (Primary Dx); Gastroparesis 07/05/2025 Results Follow-Up [facility] Gastroenterology [address] [place] [address] [place] [address] Steffi Bermudez CNP XR abdomen 1 view 07/05/2025 Results [facility] [address] [place] [address] [place] [address] Steffi Bermudez CNP NM gastric emptying solid 07/05/2025 Orders Only [address] [place] [address] ProviderNancy MD 07/05/[address] [place] [address] Annamarie Blunt MA 07/01/[address] [place] [address] Rosalinda Alcala, FAINA auhtorization 06/30/2025 Orders Only [address] [place] [address] Provider, MD Nancy 06/29/2025 3:45 PM EDT - 06/29/2025 11:59 PM EDT Hospital Encounter [facility] X-Ray Imaging [address] [place] [address] [place] [address] Nausea; Weight loss; Chronic abdominal pain Discharge Disposition: Home or Self Care () 06/29/2025 3:00 PM EDT Office Visit [address] [place] [address] Steffi Bermudez CNP Nausea (Primary Dx); Weight loss; Chronic abdominal pain 05/10/2025 8:58 AM EDT - 05/10/2025 11:59 PM EDT Hospital Encounter [facility] MR Imaging [address] [place] [address] Nausea; Weight loss; Chronic diarrhea; Chronic abdominal pain; Hepatic steatosis Discharge Disposition: Home or Self Care () 05/10/2025 8:28 AM EDT - 05/10/2025 8:57 AM EDT Hospital Encounter [facility] US IMAGING [address] [place] [address] Nausea; Weight loss; Chronic diarrhea; Chronic abdominal pain; Hepatic steatosis; Elevated liver enzymes Discharge Disposition: Home or Self Care () from Last 3 Months Immunizations Immunization Administration Dates Next Due Influenza, Unspecified 07/15/2018 Influenza, injectable, quadr ivalent, preservative free 08/11/2023,07/01/2018,08/09/2016 Influenza, recombinant, quad rivalent, injectable, preservative free 07/19/2022,06/30/2021,07/30/2020,07/31 Influenza, seasonal, injectable 07/15/2018 Influenza, seasonal, injecta ble, preservative free, 6 moonths & older 07/27/2024,07/26/2015 Pneumococcal Polysaccharide PPV23 07/01/2018 Tdap 03/22/2022 Family History Medical History Relation Name Comments Esophageal cancer Maternal Grandfather Ray Stomach cancer Maternal Grandfather Ray Alcohol abuse Paternal Grandfather Bakari Colon polyps Paternal Grandfather Bakari Heart attack Paternal Grandfather Bakari Hypertension Paternal Grandfather Bakari Relation Name Status Comments Maternal Grandfather Ray Alive Paternal Grandfather Bakari Alive Social History Tobacco Use Types Packs/Day Years [...] Heterosexual or Straight 03/15 2:19 PM EDT Last Filed Vital Signs Vital Sign Reading Time Taken Comments Blood Pressure 151/106 06/29/2025 2:45 PM EDT pt states she has taken bp meds for today. Danni Greerkadiestephanie notified Pulse 97 06/29/2025 2:45 PM EDT Temperature 36.4 C (97.5 F) 02/11/2025 2:50 PM EDT Respiratory Rate 12 02/11/2025 2:50 PM EDT Oxygen Saturation 99% 02/11/2025 2:5 0 PM EDT Inhaled Oxygen Concentration - - Weight 93.9 kg (207 lb) 06/29/2025 2:45 PM EDT Height 165.1 cm (5' 5 ) 06/29/2025 2:45 PM EDT Body Mass Index 34.45 06/29/2025 2:45 PM EDT Plan of Treatment Upcoming Encounters Date Type Department Care Team (Late st Contact Info) Description 10/19/2025 3:00 PM EST Office Visit [facility] [address] [place] [address] [place] [phone] Steffi Bemrudez, TRUCK SAFETY INSPECTOR [address] [place] [address] Health Maintenance Due Date Last Done Comments Varicella Vaccines (1 of 2 - 13+ 2-dose series) 2002 Hepatitis B Vaccines (1 of 3 - 19+ 3-dose series) 2008 COVID-19 Vaccine ( - season) 2025 Influenza Vaccine (#1) 2025 , 08/11/2023, 07/19/2022, Additional history exists Pap Smear 08/28/2025 08/28/2022 Depression Screening 06/29/2026 06/29/2025 Cervical Cancer Screening 08/28/2027 HPV/Cotest 08/28/2027 08/28/2022 Adult Tetanus 03/22/2032 03/22/2022 Zoster Vaccines (1 of 2) 2039 Pneumococcal Vaccine: Pediatrics (0 to 5 Years) and At-Risk Patients (6 to 64 Years) Aged Out 07/01/2018 No longer eligible based on patient's age to complete this topic HIB Vaccines Aged Out No longer eligi [...] EMPTYING SOLID Routine 07/05/2025 7:21 AM EDT FECAL FAT, QUALITATIVE Routine 06/30/2025 7:04 AM EDT PANCREATIC ELASTASE, FECAL Routine 06/30/2025 7:04 AM EDT XR ABDOMEN 1 VIEW Routine 06/29/2025 4:1 2 PM EDT Nausea Weight loss Chronic abdominal pain MR ENTEROGRAPHY W WO CONTRAST AND 3DPP Routine 05/10/2025 12:48 PM EDT Nausea Weight loss Chronic diarrhea Chronic abdominal pain Hepatic steatosis US LIVER WITH ELASTOGRAPHY Routine 05/10/2025 9:06 AM EDT Nausea Weight loss Chronic diarrhea Chronic abdominal pain Hepatic steatosis Elevated liver enzymes from Last 3 Months Results * NM gastric emptying solid (07/05/2025 7:21 AM EDT) Anatomical Region Laterality Modality Body Nuclear Medicine Historical Provider MD JOHN NM PROCEDURES Final R esult * Pancreatic elastase, fecal (06/30/2025 7:04 AM EDT) Stool Rectal contents / Unknown us Historical Provider LAB BODY FLUIDS AND STOOL S ORDERABLES Final Result * Fecal fat, qualitative (06/30/2025 7:04 AM EDT) Stool Rectal contents / Unknown Historical Provider LAB BODY FLUIDS AND STOOL S ORDERABLES Final Result * XR abdomen 1 view (06/29/2025 4:12 [...] unremarkable Electronically signed: Ravinder Melendrez. Steffi Bermudez TRUCK SAFETY INSPECTOR IMG XR PROCEDURES Fin al Result * MR enterography w wo and 3DPP (05/10/2025 12:48 PM EDT) Anatomical Region Laterality Modality Abdomen Magnetic Resonan ce 05/11/2025 10:0 4 AM EDT Impressions 05/11/2025 10:12 AM EDT Negative MR enterography. Uterine fibroids. Electronically signed: Clinton Hinojosa. Narrative 05/11/2025 10:12 AM EDT History: Chronic abdominal pain, chronic diarrhea and weight loss. EXAM: MRI enterography without and with contrast. COMPARISON: None FINDINGS: Liver, spleen, pancreas, adrenal glands and kidneys within normal limits. Cholecystectomy. No free fluid. No enlarged lymph nodes. No abdominal aortic aneurysm. No pancreatic ductal dilatation. Mild prominence common duct, intrahepatic biliary tree within normal limits following cholecystectomy. No free fluid in pelvis. Multiple uterine fibroids measuring up to 4 cm. Bone marrow signal within normal limits. Physiologic ovarian cyst. Colon demonstrates normal caliber, mucosal enhancement and bowel wall thickness. Terminal ileum, appendix within normal limits. Small bowel loops maintain caliber, mucosal enhancement, bowel wall thickness. No stricturing, dilatation or mucosal hyperenhancement. Procedure Note Clinton Hinojosa MD - 05/11/2025 History: Chronic abdominal pain, chronic diarrhea and weight loss. EXAM: MRI enterography without and with contrast. COMPARISON: None FINDINGS: Liver, spleen, pancreas, adrenal glands and kidneys within normallimits. Cholecystectomy. No free fluid. No enlarged lymph nodes. No abdominalaortic aneurysm. No pancreatic ductal dilatation. Mild prominence common duct, intrahepatic biliary tree within normal limits followingcholecystectomy. No free fluid in pelvis. Multiple uterine fibroids measuring up to 4 cm.Bone marrow signal within normal limits. Physiologic ovarian cyst. Colon demonstrates normal caliber, mucosal enhancement and bowel wallthickness. Terminal ileum, appendix within normal limits. Small bowel loopsmaintain caliber, mucosal enhancement, bowel wall thickness. No stricturing,dilatation or mucosal hyperenhancement. IMPRESSION: Negative MR enterography. Uterine fibroids. Electronically signed: Clinton Hinojosa. us Steffi Bermudez [facility] IM MRI PROCEDURES Fi nal Result * US LIVER WITH ELASTROGRAPHY (05/10/2025 9:06 AM EDT) Anatomical Region Laterality Modality Abdomen, Liver Ultrasound 05/10/2025 9:58 AM EDT Impressions 05/10/2025 10:00 AM EDT * Elastography suggests severe liver fibrosis. GE Normal Elastogram values: F0-F1: 0 - 5 KPa. - Absent fibrosis. F1: 5 - 8.27 KPa - Mild fibrosis. F2: 8.27 - 9.4 KPa - Significant fibrosis. F3: 9.4 - 11.88 KPa - Severe fibrosis. F4: >11.88 KPa - Cirrhosis. EIQR/Median (data variance): <30% good data. Electronically signed: Julio Colin. Narrative 05/10/2025 10:00 AM EDT US LIVER WITH ELASTOGRAPHY 05/10/2025 8:30 AM CLINICAL: Elevated liver function tests. TECHNIQUE: Real-time sonography liver and gallbladder performed as well as dedicated elastography to assess for possible fibrosis. COMPARISON: none FINDINGS: LIVER: Liver is 19.5 cm in length. Liver is diffusely echogenic, commonly due to fatty infiltration. No focal liver lesions seen. No biliary ductal dilatation. Gallbladder surgically absent. No right upper quadrant fluid collections. ELASTOGRAPHY: The median tissue stiffness is 10.58 kPa and the mean is 10.86 kPa, with a EIQR/Median of 19.8. This corresponds to F3, severe fibrosis, grading of fibrosis based on the scale below. Procedure Note Julio Colin MD - 05/10/2025 US LIVER WITH ELASTOGRAPHY 05/10/2025 8:30 AM CLINICAL: Elevated liver function tests. TECHNIQUE: Real-time sonography liver and gallbladder performed as wellas dedicated elastography to assess for possible fibrosis. COMPARISON: none FINDINGS: LIVER: Liver is 19.5 cm in length. Liver is diffusely echogenic, commonly due tofatty infiltration. No focal liver lesions seen. No biliary ductal dilatation. Gallbladder surgically absent. No rightupper quadrant fluid collections. ELASTOGRAPHY: The median tissue stiffness is 10.58 kPa and the mean is 10.86 kPa, witha EIQR/Median of 19.8. This corresponds to F3, severe fibrosis, grading of fibrosis based on thescale below. IMPRESSION: *Elastography suggests severe liver fibrosis. GE Normal Elastogram values: F0-F1: 0 - 5 KPa. - Absent fibrosis. F1: 5 - 8.27 KPa - Mild fibrosis. F2: 8.27 - 9.4 KPa - Significant fibrosis. F3: 9.4 - 11.88 KPa - Severe fibrosis. F4: >11.88 KPa - Cirrhosis. EIQR/Median (data variance): <30% good data. Electronically signed: Julio Colin. us Steffi Bermudez CNP IMG US PROCEDURES Fin al Result from Last 3 Months Insurance [employer] Care Teams Locksmith Apprentice Relationship Specialty Start Date End Date Michael Chávez MD [address] [facility] [address] [address] PCP - General Family Medicine 02/11/25 Steffi Bermudez, TRUCK SAFETY INSPECTOR [address] [place] [address] Gastroenterology 01/20/25
--- OUTSIDE RECORDS SUMMARY | 2025-07-14 13:52 | XMS_ITS | Encounter Summary ---
Author Organization [facility] Address [address] [place] [address] Care Team Providers Care Reject Opener Name Role Phone Steffi Bermudez CNP Unavailable Michael Chávez MD Primary Care Provider [phone] Reason for Referral * Consultation (Routine) - Pending Review Specialty Diagnoses / Procedures Referred By Angelica gramajo Referred To Contact Nutrition Diagnoses Metabolic dysfunction-associated steatohepatitis (MASH) Gastroparesis Procedures SC OFFICE/OUTPATIENT [facility] MDM 60 MINUTES Steffi Bermudez METER SETTER [address] [place] [address] Phone: tel: fax: [facility] Phone: tel: fax: Referral ID Status Reason Start Date Expiration Date Visits Requested Visits Authorized [id number] Pending Review Specialty Services Required 07/07/2025 07/07/2026 1 1 Encounter Details Date Type Department Care Team (Late st Contact Info) Description 07/07/2025 Orders Only [facility] [address] [place] [address] [place] [id number] Steffi Bermudez METER SETTER [address] [place] [address] Metabolic dysfunction-associated steatohepatitis (MASH) (Primary Dx); Gastroparesis Social History Tobacco Use Types Packs/Day Years [...] Description 10/19/2025 3:00 PM EST Office Visit [facility] Gastroenterology [address] [place] [address] [place] [address] MalenfSteffi brown, METER SETTER [address] [place] [address] Scheduled Referrals Name Type Priority Associated Diagnoses Orde r Schedule Adult only Ambulatory External Referral to [facility] Outpatient Referral Routine Metabolic dysfunction-associated steatohepatitis (MASH) Gastroparesis Expected: 07/07/2025 (Approximate), Expires: 01/04/2026 documented as of this encounter Visit Diagnoses Diagnosis Metabolic dysfunction-associated steatohepatitis (MASH)- Primary Gastroparesis documented in this encounter Care Teams Reject Opener Relationship Specialty Start Date End Date Michael Chávez MD [address] [facility] [place] [address] PCP - General Family Medicine 02/11/25 Steffi Bermudez CNP [address] [place] [address] Gastroenterology 01/20/25 documented as of this encounter
--- OUTSIDE RECORDS SUMMARY | 2025-07-14 13:52 | XMS_ITS | Clinical Summary ---
Author Organization [facility] Address [address] [place] [address] Care Team Providers Care Passenger Service Representative Name Role Phone Pinky Orozco CNP Primary Care Provider [phone] Allergies Active Allergy Reactions Criticality Noted Date [...] (FLONASE) 50 mcg/actuation nasal spray Use 1 [place] in each nostril once daily. Active hydrOXYzine [...] 600 mg by mouth once daily. Active M-ROBBIN PLUS 27 mg iron- 1 mg 1 tablet. 12/18/2024 Activ e QUEtiapine (SEROQUEL) 50 mg tablet Take 50 mg by mouth daily at bedtime. Active venlafaxine ER (EFFEXOR XR) 75 mg 24 hr capsule 150 mg. 08/24/2020 Active Active Problems No known active problems Family History Medical History Relation Comments other Mother Relation Status Comments Mother Social History Tobacco Use Types Packs/Day Years Used Date Smoking Tobacco: Former Cigarettes Smokeless Tobacco: Never Tobacco Cessation:Counseling Given: Not Answered Area Deprivation Index Answer Date Harman rded National Score (1-100), lower number is lower ri sk 82 12/23/2024 State Score (1-10), lower number is lower risk 7 12/23/2024 Data from: https://www.neighborhoodatlas.medicine.[facility].edu/. Last address used for calculation [address] [place] [address] 12/23/2024 Comments Unknown Sex and Gender Information Value Date Recorded Sex Assigned at Female 01/11/2025 2:23 PM EDT Legal Sex Female 8:13 AM EST Gender Identity Female 01/11/2025 2:22 PM EDT Sexual Orientation Straight 01/11/2025 2: 22 PM EDT Plan of Treatment Upcoming Encounters Date Type Department Care Team (Latest Contact Info) Description 07/20/2025 2:30 PM EDT Office Visit [facility] [address] [place] [address] Aden Covington II, OD [address] [place] [address] Pressure check ([employer]) Health Maintenance Due Date Last Done Comments Anxiety Screening 2007 Depression Screening 2007 HIV Screening 2007 Hepatitis C Screening 2007 Hepatitis B Vaccine (1 of 3 - 19+ 3-dose series) 2008 Cervical Cancer Screening 2010 HPV Vaccine (1 - 3-dose SCDM series) 2016 Influenza Vaccine (#1) 2025 , 08/11/2023, 07/19/2022, Additional history exists DTaP,Tdap,Td Vaccine (2 - Td or Tdap) 03/22/2032 03/22/2022 Insurance [facility] MED[facility] Care Teams Passenger Service Representative Relationship Specialty Start Date End Date Pinky Orozco CNP [address] [place], [place] [address] PCP - General Internal Medicine 12/18/24
--- OUTSIDE RECORDS SUMMARY | 2025-07-14 13:52 | XMS_ITS | Encounter Summary ---
Author Organization [facility] Address [address] [place] [place] [address] Care Team Providers Care Anesthesiology Physician Assistant Name Role Phone Steffi Bermudez CARDIO TECH Unavailable [phone] Michael Chávez MD Primary Care Provider [phone] Encounter Details Date Type Department Care Team (Late st Contact Info) Description 07/05/2025 Results Follow-Up [facility] [address] [facility] [place] [phone] Steffi Bermudez, CARDIO TECH [address] [place] [address] NM gastric emptying solid Social History Tobacco Use Types Packs/Day Years [...] Description 10/19/2025 3:00 PM EST Office Visit [facility] Gastroenterology [address] [place] [address] [place] [address] Steffi Bermudez, CARDIO TECH [address] [place], [place] [id number] documented as of this encounter Visit Diagnoses Diagnosis Overflow diarrhea- Primary Achlorhydria Constipation by delayed colonic transit Slow transit constipation documented in this encounter Care Teams Anesthesiology Physician Assistant Relationship Specialty Start Date End Date Michael Chávez MD [address] [facility] [address] [address] PCP - General Family Medicine 02/11/25 Steffi Bermudez CNP [address] [place], [place] [id number] Gastroenterology 01/20/25 documented as of this encounter
--- OUTSIDE RECORDS SUMMARY | 2025-07-14 13:52 | XMS_ITS | Encounter Summary ---
Author Organization [facility] Address [address] [place] [address] Care Team Providers Care Flower Maker Name Role Phone Michael Chávez MD Primary Care Provider [phone] Stalin Clarke MD Unavailable [phone] Michele Peterson Irwin DO Unavailable Encounter Details Date Type Department Care Team (Latest Contact Info) Description 07/12/2025 Travel Social History Tobacco Use Types Packs/Day Years [...] Description 09/28/2025 11:00 AM EST Office Visit [facility] [address] [place] [address] Stalin Clarke MD [address] [place] [address] documented as of this encounter Visit Diagnoses Not on filedocumented in this encounter Care Teams Flower Maker Relationship Specialty Start Date End Date Michael Chávez MD PCP - General Family Medicine 02/07/24 Stalin Clarke MD [address] [place] [address] Referring Physician Endocrinology 10/27/24 Michele Peterson DO [address] [place] [address] Otolaryngology 10/27/24 documented as of this encounter
--- OUTSIDE RECORDS SUMMARY | 2025-07-14 13:52 | XMS_ITS | Encounter Summary ---
Author Organization [facility] Address [address] [place] [address] Care Team Providers Care Pinion Polisher Name Role Phone Michael Chávez MD Primary Care Provider [phone] Stalin Clarke MD Unavailable [phone] Michele Peterson DO Unavailable [phone] Encounter Details Date Type Department Care Team (Late st Contact Info) Description 11/11/2024 Abstract [facility] [address] [place] [address] Lennie Adams MA Social History Tobacco Use [...] AM EST Office Visit [facility] [facility] [address] [place] [address] Stalin Clarke MD [address] [place] [address] documented as of this encounter Visit Diagnoses Not on filedocumented in this encounter Care Teams Pinion Polisher Relationship Specialty Start Date End Date Michael Chávez MD PCP - General Family Medicine 02/07/24 Stalin Clarke MD [address] [place] [address] Referring Physician Endocrinology 10/27/24 Michele Peterson DO [address] [facility] [place] [address] Otolaryngology 10/27/24 documented as of this encounter
--- OUTSIDE RECORDS SUMMARY | 2025-07-14 13:52 | XMS_ITS | Encounter Summary ---
Author Organization [facility] Address [address] [place] [address] Care Team Providers Care Oil And Gas Recruiter Name Role Phone Steffi Bermudez ANALYTICAL LAB TECHNICIAN Unavailable Michael Chávez MD Primary Care Provider [phone] Encounter Details Date Type Department Care Team (Late st Contact Info) Description 07/05/2025 Results Follow-Up [facility] [address] [phone] Steffi Bermudez, ANALYTICAL LAB TECHNICIAN [address] [place] [address] XR abdomen 1 view Social History Tobacco Use Types Packs/Day Years [...] Description 10/19/2025 3:00 PM EST Office Visit [facility] Gastroenterology [address] [place] [address] [place] [address] Steffi Bermudez, ANALYTICAL LAB TECHNICIAN [address] [place], [place] [address] documented as of this encounter Visit Diagnoses Not on filedocumented in this encounter Care Teams Oil And Gas Recruiter Relationship Specialty Start Date End Date Michael Chávez MD [address] [facility] [address] [address] PCP - General Family Medicine 02/11/25 Steffi Bermudez CNP [address] [place], [place] [id number] Gastroenterology 01/20/25 documented as of this encounter
--- OUTSIDE RECORDS SUMMARY | 2025-07-14 13:52 | XMS_ITS | Encounter Summary ---
Author Organization [facility] Address [address] [place] [address] Care Team Providers Care Reagent Tender Helper Name Role Phone Steffi Bermudez CNP Unavailable [phone] Michael Chávez MD Primary Care Provider [phone] Encounter Details Date Type Department Care Team (Late st Contact Info) Description 06/30/2025 Orders Only [facility] [place] [facility] [address] [place] [address] [place] [phone] Provider, MD Nancy [address] [place] [address] Social History Tobacco Use Types Packs/Day [...] Description 10/19/2025 3:00 PM EST Office Visit [facility] Gastroenterology [address] [place] [address] [place] [phone] MaleSteffi hampton, LABOR RELATIONS ANALYST [address] [place] [address] documented as of this encounter Procedures Procedure Name Priority Date/Time Associated Diagnosis Comments PANCREATIC ELASTASE, FECAL Routine 06/30/2025 7:04 AM EDT FECAL FAT, QUALITATIVE Routine 06/30/2025 7:04 AM EDT documented in this encounter Results * Fecal fat, qualitative (06/30/2025 7:04 AM EDT) Stool Rectal contents / Unknown Historical Provider LAB BODY FLUIDS AND STOOL S ORDERABLES Final Result * Pancreatic elastase, fecal (06/30/2025 7:04 AM EDT) Stool Rectal contents / Unknown Historical Provider LAB BODY FLUIDS AND STOOL S ORDERABLES Final Result documented in this encounter Visit Diagnoses Not on filedocumented in this encounter Care Teams Reagent Tender Helper Relationship Specialty Start Date End Date Michael Chávez MD [address] [facility] [address] [address] PCP - General Family Medicine 02/11/25 Steffi Bermudez LABOR RELATIONS ANALYST [address] [place], [place] [phone] Gastroenterology 01/20/25 documented as of this encounter
--- OUTSIDE RECORDS SUMMARY | 2025-07-14 13:52 | XMS_ITS | Clinical Summary ---
Author Organization [facility] Address [address] [place] [address] Care Team Providers Care Pipe Organ Installer Name Role Phone Michael Chávez MD Primary Care Provider [phone] Stalin Clarke MD Unavailable [phone] Michele Peterson DO Unavailable [phone] Allergies Active Allergy Reactions Criticality Noted Date [...] Daily 4 Active Vistaril 25 MG capsule Active Loratadine 10 MG capsule Take 1 capsule by mouth Daily Active metFORMIN XR (Glucophage-XR) 500 MG 24 hr tablet Active nicotine (Nicoderm, Step 2) 14 MG/24HR patch Place 1 patch on the skin Active omeprazole (PriLOSEC) [address] capsule Take 1 capsule by mouth Daily Active oxaprozin (Daypro) 600 MG tablet Active Fzrzvu-BiLgl-Hu qep-Kf-Wszek 3 ( + Complete Multi) 18-0.8 & 290 MG therapy Active QUEtiapine (SEROquel) 50 MG tablet Active venlafaxine XR (Effexor XR) 150 MG 24 hr tablet Active magnesium oxide (Mag-Ox) 400 mg tablet Take 1 tablet by mouth in the morning and 1 tablet before bedtime. 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 5 Active Bisacodyl EC 5 MG EC tablet 5 Active magnesium oxide (Mag-Ox) 400 MG tablet 5 Active Vit-Fe Fumarate-FA (M-Juno Plus) 27-1 MG tablet Take 1 tablet by mouth Daily 5 Active Active Problems Problem Noted Date Diagnosed [...] unspecified 10/28/2019 Left lower quadrant pain 11/20/2018 Resolved Problems Problem Noted Date Diagnosed Date Resolved Date Acute abdominal pain 02/14/2025 025 Encounters Date Type Department Care Team Description 07/12/2025 1:45 PM EDT Office Visit [facility] [address] [place] [phone] Michele Peterson, DO Status post partial thyroidectomy (Primary Dx) 07/12/2025 Bamboo flowsheet [facility] [place] [facility] [address] [place] [address] Michele Peterson, DO 07/12/2025 Travel 06/08/2025 9:15 AM EDT Office Visit [facility] [place] [facility] [address] [place] [address] Michele Peterson, DO Status post partial thyroidectomy 06/08/2025 Bamboo flowsheet [facility] [place] [facility] [address] [place] [address] Michele Peterson, DO 06/08/2025 Travel 06/01/2025 1:00 PM EDT Procedure Visit [facility] Michele Peterson, Thyroid mass of unclear etiology (Primary Dx) 05/24/2025 2:00 PM EDT Office Visit [facility] [place] [facility] [address] [place] [address] Michele Peterson, DO Thyroid nodule 05/24/2025 Bamboo flowsheet [facility] [place] [facility] [address] [place] [address] Michele Peterson, DO 05/24/2025 Travel from Last 3 Months Immunizations Immunization Administration Dates Next Due Influenza, Unspecified 07/15/2018 Influenza, injectable, quadr ivalent, preservative free 08/11/2023,07/01/2018,08/09/2016 Influenza, recombinant, quad rivalent, injectable, preservative free 07/19/2022,06/30/2021,07/30/2020,07/31 Influenza, seasonal, injectable 07/15/2018 Influenza, seasonal, injecta ble, preservative free 07/27/2024,07/26/2015 Pneumococcal Polysaccharide PPSV23 07/01/2018 Tdap 03/22/2022 Family History Medical History Relation Name Comments Diabetes Brother Pavan Mental illness Brother Pavan Anxiety disorder Father Candido Arthritis Father Candido Bipolar disorder Father Candido Depression Father Candido Dislocations Father Candido Mental illness Father Candido Migraines Father Candido Schizophrenia Father Candido Severe sprains Father Candido Cancer Maternal Grandfather Ray Ulcerative colitis Maternal Grandfather Ray Cancer Maternal Grandmother Enedina Arthritis Mother Riya [...] EST Inhaled Oxygen Concentration - - Weight 97.5 kg (215 lb) 07/12/2025 1:42 PM EDT Height 165.1 cm (5' 5 ) 07/12/2025 1:42 PM EDT Body Mass Index 35.78 07/12/2025 1:42 PM EDT Plan of Treatment Upcoming Encounters Date Type Department Care Team (Late st Contact Info) Description 09/28/2025 11:00 AM EST Office Visit [facility] [place] [facility] [address] [place] [address] Stalin Clarke MD [address] [place] [address] Procedures Procedure Name Priority Date/Time Associated Diagnosis Comments TSH Routine 07/12/2025 9:36 AM EDT Status post partial thyroidectomy T3, TOTAL Routine 07/12/2025 9:36 AM EDT Status post partial thyroidectomy T4 (THYROXINE), TOTAL Routine 07/12/2025 9:36 AM EDT Status post partial thyroidectomy CALCIUM Routine 05/24/2025 2:48 PM EDT Thyroid nodule PTH, INTACT WITHOUT CALCIUM Routine 05/24/2025 2:48 PM EDT Thyroid nodule TSH Routine 05/24/2025 2:48 PM EDT Thyroid nodule T3, TOTAL Routine 05/24/2025 2:48 PM EDT Thyroid nodule T4 (THYROXINE), TOTAL Routine 05/24/2025 2:48 PM EDT Thyroid nodule from Last 3 Months Results * T3 (07/12/2025 9:36 AM EDT) Only the most recent of2 resultswithin the time period is included. TRIIODOTHYRONINE (T3) TOTAL 0.91 0.87 - 1.78 ng/mL 07/12/2025 11:01 AM EDT [facility] Other Topography unknown / Unknown 07/12/2025 9:36 AM EDT 07/12/2025 9:36 AM EDT us Michele Peterson DO LAB BLOOD ORDERABLES Final Result [address] [address], [facility] [address] [place] [address] * TSH (07/12/2025 9:36 AM EDT) Only the most recent of2 resultswithin the time period is included. THYROID STIMULATING HORMONE 1.47 0.45 - 5.33 u[iU]/mL 07/12/2025 10:54 AM EDT [facility] Other Topography unknown / Unknown 07/12/2025 9:36 AM EDT 07/12/2025 9:36 AM EDT Michele Peterson DO LAB BLOOD ORDERABLES Final Result Performing Organization Address City/[facility] Co de Phone Number [address] [address], [address] [address] * T4 (07/12/2025 9:36 AM EDT) Only the most recent of2 resultswithin the time period is included. THYROXINE (T4) TOTAL 9.72 5.39 - 11.82 ug/dL 07/12/2025 10:57 AM EDT [facility] Other Topography unknown / Unknown 07/12/2025 9:36 AM EDT 07/12/2025 9:36 AM EDT Michele Peterson DO LAB BLOOD ORDERABLES Final Result Performing Organization Address City/[facility] Co de Phone Number [address] [address], [address] [address] * PTH, intact (05/24/2025 2:48 PM EDT) PARATHYROID HORMONE INTACT 22 15 - 65 pg/mL [facility] Blood Venous blood specimen / Unknown 05/24/2025 2:48 PM EDT 05/24/2025 Narrative [facility] - 05/25/2025 1:07 PM EDT Performed at: 02 - [facility] [address] [id number] Shaker Out: Jace Mi PhD, Phone: [phone] Michele Stewartkasialiliya PÉREZ LAB BLOOD ORDERABLES Final Result [facility] * (ABNORMAL) Calcium (05/24/2025 2:48 PM EDT) [facility] Calcium 10.7(H) 8.7 - 10.2 mg/dL [facility] Blood Venous blood specimen / Unknown 05/24/2025 2:48 PM EDT 05/24/2025 Narrative [facility] - 05/25/2025 1:07 PM EDT Performed at: - [facility] [address] [facility], [address], [place] [id number] Shaker Out: Carol Santiago MD, Phone: [phone] us Michele Gayle Nicholas PÉREZ LAB BLOOD ORDERABLES Final Result Performing Organization Address City/[facility]/ZIP Co de Phone Number [facility] from Last 3 Months Insurance [employer] Care Teams Pipe Organ Installer Relationship Specialty Start Date End Date Michael Chávez MD PCP - General Family Medicine 02/07/24 Stalin Clarke MD [address] [place] [address] Referring Physician Endocrinology 10/27/24 Michele Peterson DO [address] [place] [address] Otolaryngology 10/27/24
--- OUTSIDE RECORDS SUMMARY | 2025-07-14 13:52 | XMS_ITS | Encounter Summary ---
Author Organization [facility] Address [address] [place] [address] Care Team Providers Care Canvas Baster Jumpbasting Name Role Phone Michael Chávez MD Primary Care Provider [phone] Stalin Clarke MD Unavailable [phone] Michele Peterson DO Unavailable Encounter Details Date Type Department Care Team (Late st Contact Info) Description 07/12/2025 Bamboo flowsheet [facility] [address] [place] [address] Michele Peterson DO [address] [place] [address] Social History Tobacco Use Types Packs/Day Years [...] AM EST Office Visit [facility] [place] [facility] [address] [place] [address] Stalin Clarke MD [address] [place] [address] documented as of this encounter Visit Diagnoses Not on filedocumented in this encounter Care Teams Canvas Baster Jumpbasting Relationship Specialty Start Date End Date Michael Chávez MD PCP - General Family Medicine 02/07/24 Stalin Clarke MD [address] [place] [address] Referring Physician Endocrinology 10/27/24 Michele Peterson DO [address] [place] [address] Otolaryngology 10/27/24 documented as of this encounter
--- OUTSIDE RECORDS SUMMARY | 2025-07-14 13:52 | XMS_ITS | Encounter Summary ---
Author Organization [facility] Address [address] [place] [address] Care Team Providers Care Supervisor Brew House Name Role Phone Steffi Bermudez CNP Unavailable [phone] Michael Chávez MD Primary Care Provider [phone] Encounter Details Date Type Department Care Team (Late st Contact Info) Description 07/05/2025 Telephone [facility] Gastroenterology [address] [place] [address] [place] [address] Annamarie Blunt MA Social History Tobacco Use Types Packs/Day [...] Description 10/19/2025 3:00 PM EST Office Visit [facility] [address] [place] [address] [place] [address] Steffi Bermudez, VOTATOR MACHINE OPERATOR [address] [place], [place] [id number] documented as of this encounter Visit Diagnoses Not on filedocumented in this encounter Care Teams Supervisor Brew House Relationship Specialty Start Date End Date Michael Chávez MD [address] [facility] [address] [address] PCP - General Family Medicine 02/11/25 Steffi Bermudez, VOTATOR MACHINE OPERATOR [address] [place], [place] [address] Gastroenterology 01/20/25 documented as of this encounter
== END 2025-07-14 | disposition home or self-care (01) ==
LOC: MN 07-14 13:48
PROVIDERS: PCP Family Medicine
DX: K31.84 Gastroparesis (principal)
CPT/HCPCS: 97802

== ENCOUNTER 2025-08-26 11:13 | Outpatient (OUT) | payer OTHER, SELFPAY ==
--- OUTSIDE RECORDS SUMMARY | 2025-08-17 15:00 | XMS_ITS | Encounter Summary ---
Author Organization [facility] Address [address] [place] [address] Care Team Providers Care Test Engineering Technician Name Role Phone Steffi Bermudez CAUSTIC STRENGTH INSPECTOR Unavailable Michael Chávez MD Primary Care Provider [phone] Reason for Visit * ReasonCommentsFollow-upGastric Emptying Study done in the media Encounter Details DateTypeDepartmentCare Team (Latest Contact Info)Lzfaafevrhh04/04/2025 3:00 PM ESTOffice Visit [facility] [address] [place] [address] Steffi Bermudez, CAUSTIC STRENGTH INSPECTOR [address] [place], [place] [id number] Gastroparesis (Primary Dx); Change in bowel movement; Nausea Social History Tobacco UseTypesPacks/DayYears UsedDateSmoking Tobacco: FormerCigarettes0.310 Smokeless Tobacco: NeverAlcohol UseStandard Drinks/WeekCommentsNot Currently0 (1 standard drink = 0.6 oz pure alcohol)Humiliation, Afraid, Rape, and Kick questionnaireAnswerDate RecordedWithin the last year, have you been afraid of your partner or ex-partner?No08/17/2025Within the last year, have you been humiliated or emotionally abused in other ways by your partner or ex-partner?No 08/17/2025Within the last year, have you been kicked, hit, slapped, or otherwise physically hurt by your partner or ex-partner?No08/17/2025Within the last year, have you been raped or forced to have any kind of sexual activity by your part ner or ex-partner?No08/17/2025PHQ-2AnswerDate RecordedPatient Health Questionnaire-2 Etvrs55510/17/2024CommentsNoSex and Gender Information ValueDate RecordedSex Assigned at IgahhHttlxw99/24/2025 2:19 PM EDTLegal Sex Vyluik5411/26/2024 3:28 PM ESTGender OpqeefkmKuczny89/24/2025 2:19 PM EDTSexual OrientationHeterosexual or Uvhkbhfh82/24/2025 2:19 PM EDTdocumented as of this encounter Last Filed Vital Signs Vital SignReadingTime TakenCommentsBlood Ykxepxtm159/9608/17/2025 2:45 PM EST Omtmo193308/17/2025 2:45 PM ESTTemperature--Respiratory Rate--Oxygen Saturation-- Inhaled Oxygen Concentration--Odgwhr42.1 kg (203 lb)08/17/2025 2:45 PM ESTHeight 165.1 cm (5' 5 )08/17/2025 2:45 PM ESTBody Mass Index33.7808/17/2025 2:45 PM EST documented in this encounter Functional Status * BPAnswerDate of RovaeggmqjDjyskc535/9608/17/2025 2:45 PM Annamarie Gloria MA * PulseAnswerDate of MyeimpnqtjZyovix3248/04/2025 2:45 PM Annamarie Gloria MA * Patient PositionAnswerDate of ChepbszemjEegpxkDvyplfy02/04/2025 2:45 PM Annamarie Villalobos MA * Fall RiskQuestionAnswerDate of AssessmentAuthorWorried about fallin 08/17/2025 2:46 PM Annamarie Gloria MAOne or more falls in the last year:No 08/17/2025 2:46 PM Annamarie Gloria MAFeels unsteady when walkin 08/17/2025 2:46 PM Annamarie Gloria MA * BPAnswerDate of BioyxrsxagRuoiks902/08/17/2025 2:45 PM Annamarie Gloria MA * PulseAnswerDate of VxqjwsrgscGbepfi9950/04/2025 2:45 PM Annamarie Gloria MA * Over the past 2 weeks, how often have you been bothered by any of the following problems?QuestionAnswerDate of AssessmentAuthorThoughts that you would be better off or hurting yourself in some wayNot at all08/17/2025 2:46 PM Annamarie Gloria MAPatient Health Questionnaire-9 Fnfwk63510/17/2024 2:46 PM Annamarie Gloria MATrouble falling or staying asleep, or sleeping too muchNot at all08/17/2025 2:46 PM Annamarie Gloria MAFeeling tired or having little energyNot at all08/17/2025 2:46 PM Annamarie Gloria MAPoor appetite or overeatingNot at all08/17/2025 2:46 PM Annamarie Gloria MA Feeling bad about yourself - or that you are a failure or have let yourself or your family downNot at all08/17/2025 2:46 PM Annamarie Gloria MATrouble concentrating on things, such as reading the newspaper or watching television Not at all08/17/2025 2:46 PM Annamarie Gloria MAMoving or speaking so slowly that other people could have noticed? Or the opposite - being so fidget y or restless that you have been moving around a lot more than usual.Not at all08/17/2025 2:46 PM Annamarie Gloria MA * Over the past 2 weeks, how often have you been bothered by any of the following problems?QuestionAnswerDate of AssessmentAuthorLittle interest or pleasure in doing thingsNot at all08/17/2025 2:46 PM Annamarie Gloria MA Feeling down, depressed, or hopelessNot at all08/17/2025 2:46 PM Annamarie Gloria MAPatient Health Questionnaire-2 Hbwdv29410/17/2024 2:46 PM Annamarie Gloria MA * BP LocationAnswerDate of AssessmentAuthorLeft arm08/17/2025 2:45 PM Annamarie Gloria MA * Modified Malnutrition Screen Tool (MST)QuestionAnswerDate of AssessmentAuthor Have you been eating poorly because of a decreased appetite?Yes08/17/2025 2:46 PM Annamarie Gloria MAProvider OmmkpxgfJky29/04/2025 2:46 PM Annamarie Gloria MAHave you recently lost weight without trying?Yes08/17/2025 2:46 PM Annamarie Gloria MAHow much has your food intake decreased?50-75% of normal 08/17/2025 2:46 PM Annamarie Gloria MAIf yes, how much weight have you lost?Hdyjaq2508/17/2025 2:46 PM Annamarie Gloria MAUnplanned weight loss over:Viyfvx4308/17/2025 2:46 PM Annamarie Gloria MA * Patient PositionAnswerDate of LucxorhipePshzccFuvllcz18/04/2025 2:45 PM Annamarie Villalobos MA documented as of this encounter Progress Notes * Steffi Bermudez CNP - 08/17/2025 3:00 PM EST [facility] Gastroenterology Follow Up Patient Visit - History & Physical CHIEF COMPLAINT Chief Complaint Patient presents with Follow-up Gastric Emptying Study done in the media HISTORY OF PRESENT ILLNESS: Quyen Jarrett is a 35 y.o. female w/ pmh of Christie's, Endometriosis, [...] regards to her swallowing, she denies food stickingin her esophagus, she wonders if her difficulty is r/t her thyroid being enlarged- Takes cnbaximtxz45 mg daily (started 15 years ago), will [...] paternal great grandpa, maternal grandpa esophageal cancer INTERVAL HISTORY 04/06/25: Underwent EGD and colonoscopy on 02/11/25 for evaluation of chronic diarrhea, RUQ pain, and iron deficiency anemia; EGD showed mild chronic gastritis with negative H. pylori, normal duodenum; colonoscopy was grossly normal with benign colon biopsies; no evidence of celiac disease or microscopic colitis. Stool studies unremarkable for infections, although C. Diff not run Negative celiac serologies and small bowel bx for celiac disease. Admitted to [facility] on 02/13/25 for severe pain/vomiting, CT completed (no records available) dx w/ an appendicitis treated with antbiotics. 02/13/25: AST 55/ALT 80; lipase WNL. [place] better fortwo weeks and then symptoms returned feirce. Two weeks later presented to [facility] dx w/ Mesenteric Adenitis, repeat CT also not available, was vomiting profusely, no relief with phenergan. Treated with reglan. PCP started flagyl/cirpo x 10 days only helped slightly. Today she reports ongoing RUQ pain. Worse with eating. Issues w/ severe nausea now but was only vomiting in the hospital/ER. Pain still worse with eating, no particular known triggers- all food causes pain. Has some LLQ painthat remains constant and worse bloating. Has intermittent generalized abdominal spasms - especially r/t to BMs and when resting. None of these pains are improved with BMs. Issues w/ severe urgency of diarrhea, and passing undigested foods within a hour or a so after eating them. BMs occur at least5 x per day, always loose to watery, worse with eating. Denies any form to her stool. Denies hematochezia. Developed weight loss. Takes omeprazole 40 mg daily (started 15 years ago), will still need to take TUMs. No liver history. Steatosis of imagining. Mildly elevated liver enzymes for the past few years. Denies any current alcohol use. No prior history of heavy alcohol use. 09/2024 ALT 51, AST 38; 11/06 ALT63, AST 48; 09/2022: ALT 62, AST 51. INTERVAL HISTORY 06/29/25: MR enterography (05/10/25): Negative for small bowel or colonic inflammation, stricturing, or dilation; normal solid organs; incidental uterine fibroids. Liver ultrasound with elastography (05/10/25): Enlarged echogenic liver consistent with fatty infiltration, no focal lesions; stiffness values consistent with F3 (severe fibrosis). Serum fibrosis reported minimal to no fibrosis (F0/F1). Stool studies for infections, electrolytes and EPI submitted at [facility] on 06/24/25, no results available yet. Patient reports several years of ongoing gastrointestinal symptoms with significant worsening in recent months. She describes constant right upper quadrant pain, exacerbated by eating, without specific food triggers. She also experiences left lower quadrant discomfort and generalized abdominal spasms, often severe, occurring both at rest and with bowel movements. During these episodes, she reports sitting on the toilet in severe distress, describing spasms as ???wringing her belly.?? Some relief is achieved with Bentyl and Levsin PRN, though fatigue is notable. She endorses severe nausea with frequent dry heaving, eating only once daily to limit symptoms. Shenotes constant bloating and gas. Swallowing has improved since her thyroid removal. Diarrhea improves with fasting but worsens after meals, with severe urgency and passage of undigested food within an hour of eating. She reports >5 watery BMs/day with no formed stools when eating; when fasting, stools are Lyons Stool Scale type 4. She denies hematochezia but reports 6 lb unintentional weight loss since January 2025. INTERVAL HISTORY 08/17/25: GES (07/02/25) showed delayed gastric emptying - 22% retention at 4 hours AXR (06/29/25) showed moderate amount of stool, particularly in her right colon. Pancreatitic elastase was WNL, stool studies negative for infections. Completed a bowel cleanse without significant improvement in symptoms. Bowel movement consistency has improved slightly, now Lyons type 6 (previously type 7), occurring 2-3 times per day. Still experiences marked symptom triggering with eating. Denies hematochezia, melena, or steatorrhea. Continues to report postprandial abdominal pain and discomfort with meals. Appetite remains poor--typically forces herself to eat one meal daily, usually supper. Weight loss of 4 pounds noted since last clinic visit. She was evaluated by a dietitian at [facility], who recommended a soft- particle diet. She isadhering closely to dietary guidance and has switched to lactose-free milk. The dietitian also recommended Ensure supplementation, which the patient reports helps, though she has difficulty affordingit. Nausea remains intermittent throughout the day, worse in the morning and after meals. Continues to experience vomiting after eating. PREVIOUS LABS/IMAGING/ENDOSCOPY: GASTRIC EMPTYING 07/02/2025: Impression 1. Delayed gastric emptying. TECHNIQUE: RADIOPHARMACEUTICAL: 1 mCi Tc-99m sulfur colloid [...] significant reflux or esophageal retention is noted. XR ABDOMEN 1 VIEW 06/29/2025: TECHNIQUE: Single view of the abdomen INDICATION: Assess stool burden COMPARISON: Radiograph for a 25 IMPRESSION: FINDINGS/IMPRESSION: *Nonobstructive bowel gas pattern *Moderate colonic fecal distention predominantly involving the ascending colon *No abnormal calcification along the urinary tract *Cholecystectomy clips *Osseous structures are unremarkable MR enterography w wo and 3DPP 05/10/2025: Narrative & Impression History: Chronic abdominal pain, chronic diarrhea and [...] thickness. No stricturing, dilatation or mucosal hyperenhancement. IMPRESSION: Negative MR enterography. Uterine fibroids. US LIVER WITH ELASTOGRAPHY 05/10/2025: CLINICAL: Elevated liver function tests. TECHNIQUE: Real-time [...] of fibrosis based on the scale below. IMPRESSION: *Elastography suggests severe liver fibrosis. GE Normal Elastogram values: F0-F1: 0 - 5 KPa. - Absent fibrosis. F1: 5 - 8.27 KPa - Mild fibrosis. F2: 8.27 - 9.4 KPa - Significant fibrosis. F3: 9.4 - 11.88 KPa - Severe fibrosis. F4: >11.88 KPa - Cirrhosis. EIQR/Median (data variance): <30% good data. Esophagogastroduodenoscopy (EGD) Procedure Note 02/11/25: Procedure: EGD with biopsies Indications: Chronic diarrhea [...] as the gastroscope was withdrawn, including a retroflexedview of the proximal stomach; findings and interventions [...] at the GI clinic Proceed with colonoscopy Colonoscopy Procedure Note 02/11/25: Procedure: Colonoscopy with biopsies Indications: Chronic iron [...] was inserted into the rectum and advanced underdirect vision to the cecum, which was identified [...] results Follow up at the GI clinic Final Diagnosis A. Duodenum, biopsy: - Duodenal mucosa with with no specific abnormality. - No significant inflammation or villous abnormality identified. B. Stomach, biopsy: - Chronic inactive gastritis. - No intestinal metaplasia identified. - Immunohistochemical staining for Helicobacter pylori is negative. The control is satisfactory. C. Colon, biopsy: - Benign colonic mucosa with no specific abnormality. LABORATORY DATA: CBC: Lab Results Component Value Date WBC 5.64 04/06/2025 RBC 4.78 04/06/2025 HGB 12.7 04/06/2025 HCT 37.1 04/06/2025 MCV 77.6 (L) 04/06/2025 RDW 14.1 04/06/2025 PLT 328 04/06/2025 PT/INR Lab Results Component Value Date PT 12.2 (L) 04/06/2025 INR 0.90 04/06/2025 BMP: Lab Results Component Value Date BUN 14 04/06/2025 LFTs: Lab Results Component Value Date BILITOT 0.4 04/06/2025 BILIDIR 0.1 04/06/2025 ALKPHOS 55 04/06/2025 GGT 29 04/06/2025 AST 52 (H) 04/06/2025 AST 41 (H) 04/06/2025 ALT 58 (H) 04/06/2025 ALT 50 04/06/2025 ALBUMIN 4.8 04/06/2025 PROT 7.4 04/06/2025 Celiac Serology: Lab Results Component Value Date TTGA <1.02 01/19/2025 IGA 237.0 01/19/2025 B12/Folate/Iron studies: No results found for: EITXRQQP08 , FOLATE , IRON , TIBC , UIBC , IRONSAT , FERRITIN IBD Biomarkers Lab Results Component Value Date CRP <5.5 (H) 04/06/2025 No results found for: SEDRATE Viral Hepatitis Lab Results Component Value Date HEPBSAG Nonreactive 04/06/2025 HEPBSAB 115.71 04/06/2025 HEPBCAB Nonreactive 04/06/2025 HEPCAB Nonreactive 04/06/2025 Lab Results Component Value Date GGT 29 04/06/2025 Liver Workup Lab Results Component Value Date SMOOTHMUSCAB <1:20 04/06/2025 MITOAB 2.8 04/06/2025 Lab Results Component Value Date SMOOTHMUSCAB <1:20 04/06/2025 CERULOPLSM 27.9 04/06/2025 TTGA <1.02 01/19/2025 IGA 237.0 01/19/2025 No results found for: TSH , J8ENFFP , W2SEYHB , THYROIDAB Pancreatitis No results found for: [...] PCO (polycystic ovaries) Post-op pain Uterine leiomyoma Acute abdominal pain Cold sore Contact dermatitis Edema Facial pain Iron deficiency anemia Periapical abscess Gastroparesis Past Medical History: Past Medical History: Diagnosis Date Anemia Anxiety Arthritis Chronic diarrhea Colitis Depression Diarrhea Endometriosis GERD (gastroesophageal reflux disease) Hypertension Hypothyroidism NAFLD (nonalcoholic fatty liver disease) Obesity PCOS (polycystic ovarian syndrome) PONV (postoperative nausea and vomiting) Uterine leiomyoma Past Surgical History: Past Surgical History: Procedure Laterality Date ANKLE SURGERY Left CHOLECYSTECTOMY COLONOSCOPY CYST REMOVAL DILATION AND CURETTAGE OF UTERUS ESOPHAGOGASTRODUODENOSCOPY OTHER SURGICAL HISTORY Left FALLOPIAN TUBE REMOVED OTHER SURGICAL HISTORY ENDOMETRIOSIS SURGERY UPPER GASTROINTESTINAL ENDOSCOPY WISDOM TOOTH EXTRACTION FAMILY HISTORY: Family History Problem Relation Name Age of Onset Esophageal cancer Maternal Grandfather Ray Stomach cancer Maternal Grandfather Ray Alcohol abuse Paternal Grandfather Bakari Hypertension Paternal Grandfather Bakari Heart attack Paternal Grandfather Bakari Colon polyps Paternal Grandfather Bakari SOCIAL HISTORY: Social History Tobacco Use Smoking status: Former Current packs/day: 0.25 Average packs/day: 0.3 packs/day for 10.0 years (2.5 ttl pk-yrs) Types: Cigarettes Smokeless tobacco: Never Vaping Use Vaping status: Every Day Substances: Nicotine, THC Substance Use Topics Alcohol use: Not Currently Drug use: Not Currently Types: Marijuana Comment: last use 02/05 ALLERGIES: Latex, Beta-blockers (beta-adrenergic blocking agts), Diltiazem, [...] , Rfl: hyoscyamine 0.125 mg dissolvable tablet, every 4 (four) hours if needed., Disp: , Rfl: levothyroxine (Synthroid, Levoxyl) 137 mcg tablet, Take 137 mcg by mouth in the morning., Disp: , Rfl: loratadine 10 mg capsule, Take 1 capsule by mouth in the morning., Disp: , Rfl: M- Plus 27 mg iron- 1 mg tablet, 1 tablet at bedtime., Disp: , Rfl: magnesium oxide (Mag-Ox) 400 mg (241.3 mg magnesium) tablet, Take 1 tablet by mouth twice a day., Disp: , Rfl: metFORMIN XR (Glucophage-XR) 500 mg 24 hr tablet, Take 1,000 mg by mouth twice a day., Disp: , Rfl: methylcellulose, laxative, (CitruceL Sugar Free) powder, Mix 1 tablespoon in 8 oz (240 mL) of cold water. Take by mouth once daily. Increase frequency as needed up to 2 tablespoons 3 times daily., Disp: 907 g, Rfl: 11 nicotine (Nicoderm CQ) 14 mg/24 hr patch, Place 1 patch on the skin in the morning., Disp: , Rfl: omeprazole (PriLOSEC) [address] capsule, Take 1 capsule by mouth in the morning., Disp: , Rfl: oxaprozin (Daypro) 600 mg tablet, Take 1,200 mg by mouth in the morning., Disp: , Rfl: polyethylene glycol (Glycolax) 17 gram/dose powder, Take 238 g by mouth in 64 oz of water or sportsdrink for a one time bowel cleanse, Disp: 238 g, Rfl: 0 promethazine (Phenergan) 25 mg tablet, Take 1 tablet (25 mg) by mouth every 8 (eight) hours if needed for nausea or vomiting., Disp: 30 tablet, Rfl: 1 QUEtiapine (SEROquel) 50 mg tablet, Take 50 mg by mouth at bedtime., Disp: , Rfl: valACYclovir (Valtrex) 1 gram tablet, if needed., Disp: , Rfl: venlafaxine XR (Effexor-XR) 150 mg 24 hr capsule, at bedtime., Disp: , Rfl: I reviewed and reconciled this patient's medication list today. The list included in this note is the most up to date list that I can attest to at this time based on the information that the patient has provided me and the electronic medical record. REVIEW OF SYSTEMS: See HPI, otherwise ROS as below CONSTITUTIONAL: negative HEENT: negative RESPIRATORY: negative CARDIOVASCULAR: negative GASTROINTESTINAL: As in HPI GENITOURINARY: negative INTEGUMENT/BREAST: negative MUSCULOSKELETAL: negative NEUROLOGICAL: negative BEHAVIOR/PSYCH: negative PHYSICAL EXAM: Vitals: 08/17/25 1445 BP: (!) 156/96 BP Location: Left arm Patient Position: Sitting BP Cuff Size: Large adult Pulse: 77 Weight: 92.1 kg (203 lb) Height: 1.651 m (5' 5 ) Body mass index is 33.78 kg/m??. Physical Exam Constitutional: Appearance: Normal appearance. No distress. Vitals reviewed. HENT: Head: Normocephalic and atraumatic. Pulmonary: Effort: Pulmonary effort is normal. Musculoskeletal: General: Normal range of motion. Neurological: General: No focal deficit present. Mental Status: Alert and oriented to person, place, and time. Mental status is at baseline. Skin: No jaundice. Psychiatric: Mood and Affect: Mood normal. Behavior: Behavior normal. Thought Content: Thought content normal. Judgment: Judgment normal. ASSESSMENT AND PLAN: Impression: Chronic Abdominal Pain with Nausea, Vomiting, and Diarrhea: Most likely etiology is an underlying dysmotility and/or functional gastrointestinal disorder, including gastroparesis, with suspected constipation and overflow diarrhea versus IBS-D Work up: Prior EGD (02/11/25) showed mild chronic gastritis, negative for H. pylori, and normal duodenum. Colonoscopy (02/11/25) grossly normal with random biopsies negative for microscopic colitis or celiacdisease. MR enterography (05/10/25) negative for small bowel or colonic inflammation, stricturing, or dilation. Gastric emptying study (07/02/25) showed delayed gastric emptying with 22% retention at 4 hours, consistent with mild gastroparesis. Pancreatic elastase (06/30/25) normal; stool studies negative for infection. Abdominal X-ray (06/29/25) demonstrated a moderate amount of stool, particularly in the right colon. Ongoing symptoms of abdominal pain, nausea, and vomiting. Pain remains primarily postprandial, worsened with eating, and associated with early satiety and fullness. Appetite remains poor, typically eating only one meal daily. Nausea remains intermittent, worse in the morning and after meals, with ongoing vomiting after eating. Reports continued weight loss (4 lbs since last clinic visit) Completed a bowel cleanse without significant improvement in symptoms. Bowel movements now Lyons type 6 (previously type 7), occurring 2-3 times daily. Denies hematochezia, melena, or steatorrhea. Evaluated by dietitian at [facility] and advised to follow a soft- particle diet. Following dietary recommendations closely, including use of lactose-free milk. Using Ensure for caloric supplementation but reports difficulty affording it. History notable for cholecystectomy, endometriosis involving the bowel, and recent appendicitis (02/2025) managed with antibiotics. Gastroesophageal Reflux Disease: Longstanding GERD, previously on omeprazole 40 mg daily with frequent breakthrough symptoms. Currently weaned to omeprazole 20 mg daily with good reflux control. Denies dysphagia or breakthrough symptoms at this time. Hepatic Steatosis and Mild Transaminitis: Steatosis on prior imaging. Mildly elevated liver enzymes noted since 2021 - 09/2024 ALT 51, AST 38; 11/06 ALT 63, AST 48; 09/2022: ALT 62, AST 51. 04/06/25 Hepatic panel wnl except AST 41, plat cnt WNL. US/E 05/10/25: Enlarged echogenic liver consistent with fatty infiltration, no focal lesions; stiffness values consistent with F3 (severe fibrosis). Serum fibrosis reported minimal to no fibrosis (F0/F1). FIB 4 0.62 pts- alternative fibrosis assessment recommended. MASLD risks: BMI 34.45, HTN, Low HDL, & HTG, Denies current or significant prior alcohol use. Viral hepatitis panel, AIH panel, A1AT and iron overload blood work were all unremarkable. Immune to Hep B. Plan: Reviewed findings consistent with mild gastroparesis on GES and moderate stool burden on AXR, suggesting an element of dysmotility with possible constipation with overflow diarrhea. Also discussed IBS-D vs. BAM as a cause of chronic diarrhea. Continue soft-particle, low-fat, low-fiber diet as recommended by dietitian. Encouraged small, frequent meals and avoidance of high-fat, greasy, and fibrous foods that may delay gastric emptying. Continue use of lactose-free milk. Given poor oral intake and weight loss Ensure or comparable liquid nutrition is recommended daily. Ensure order was sent to the DME for once daily use. Encourage adequate hydration (goal 6-8 cups/day). Recommend follow-up with dietitian for continued nutritional guidance and monitoring of caloric intake. Discussed treatment options for gastroparesis, including initiation of metoclopramide. Reviewed thepotential benefits and risks in detail. Discussed the increased risk of adverse effects with concurrent use of other antiemetics and Seroquel. Reviewed possible side effects, including the black box warning for extrapyramidal symptoms and tardive dyskinesia. Patient was advised to discontinue the medication immediately and notify the office if any abnormal muscle movements, stiffness, or restlessness occur. The importance of drug holidays every 3 months was emphasized to minimize long-term risk. Compazine may be used as needed for nausea. Benefits and risks were discussed, including potential drowsiness, dizziness, and extrapyramidal side effects. Advised to avoid concurrent use with metoclopramide to reduce the risk of additive neurologic side effects. Patient instructed to notify the office if abnormal movements, stiffness, or restlessness occur. Discussed importance of maintaining regular bowel regimen --will recheck ABD XR today, if stool burden persists on repeat imaging, may consider scheduled Miralax. If no stool on imaging will considerXifaxan for IBS vs BAM treatment. Continue current PPI therapy for reflux management. Monitor weight and nutritional status closely. If no improvement with above recommendation will consider further imaging and workup. Follow up in 8-12 weeks or sooner if symptoms worsen. Encouraged prompt return if worsening symptoms, further weight loss, or new concerning signs arise. Discussed red flag abdominal pain symptoms with patient. Patient instructed to proceed for emergentevaluation to ED if they occur. Quyen was seen today for follow-up. Diagnoses and all orders for this visit: Gastroparesis (Primary) - Basic metabolic panel; Future - Magnesium; Future - XR abdomen 1 view; Future - metoclopramide (Reglan) 5 mg tablet; Take 1 tablet (5 mg) by mouth if needed in the morning, at noon, in the evening, and at bedtime (gastroparesis). - prochlorperazine (Compazine) 5 mg tablet; Take 1 tablet (5 mg) by mouth every 6 (six) hours if needed for nausea or vomiting. Change in bowel movement - Basic metabolic panel; Future - Magnesium; Future - XR abdomen 1 view; Future Nausea - prochlorperazine (Compazine) 5 mg tablet; Take 1 tablet (5 mg) by mouth every 6 (six) hours if needed for nausea or vomiting. I spent 63 minutes of total time on the day of the visit. This time was spent preparing for the visit, obtaining and reviewing any outside history/data, taking a history, performing an exam/evaluation, counseling and educating the patient/family about the diagnosis and plan, performing medical decision making, referring to and communicating with other health care referrals, independently interpreting results and documenting in the EMR, and coordinating care. Please see the additional documentation in this note for specific details. Thank you for allowing me to participate in this pleasant patient???s care. documented in this encounter Plan of Treatment DateTypeDepartmentCare Team (Latest Contact Info)Mvnppwrsqdf10/24/2026 3:00 PM ESTOffice Visit [facility] [address] [place] [phone] MaleSteffi hampton, CAUSTIC STRENGTH INSPECTOR [address] [place] [address] documented as of this encounter Results * XR abdomen 1 view (08/17/2025 5:32 PM EST)Anatomical RegionLateralityModality AbdomenComputed RadiographySpecimen (Source)Anatomical Location / Laterality Collection Method / VolumeCollection TimeReceived Time08/18/2025 7:02 AM EST Impressions 08/18/2025 7:02 AM EST * Nonobstructive bowel gas pattern. Moderate constipation. Stool burden has decreased somewhat. Mild degenerative changes. Surgical clips right upper quadrant. Electronically signed: Malik Mata MD. Narrative 08/18/2025 7:02 AM EST XR ABDOMEN 1 VIEW Clinical information: Gastroparesis. Comparison: 06/29/25. Procedure Note Malik Mata MD - 08/18/2025 XR ABDOMEN 1 VIEW Clinical information: Gastroparesis. Comparison: 06/29/25. IMPRESSION: *Nonobstructive bowel gas pattern. Moderate constipation. Stool burdenhas decreased somewhat. Mild degenerative changes. Surgical clips rightupper quadrant. Electronically signed: Malik Mata MD. Authorizing ProviderResult TypeResult StatusJacqueline E Malenfant CNPIMG XR PROCEDURESFinal Result * (ABNORMAL) Magnesium (08/17/2025 4:54 PM EST)ComponentValueRef RangeTest MethodAnalysis TimePerformed AtPathologist SignatureMagnesium1.6(L)1.9 - 2.7 mg/dL08/17/2025 5:35 PM ESTNEW [facility] ([facility])Specimen (Source) Anatomical Location / LateralityCollection Method / VolumeCollection Time Received TimeBloodVenous blood specimen / UnknownVenipuncture / Unknown 08/17/2025 4:54 PM EST08/17/2025 5:12 PM EST Narrative Authorizing ProviderResult TypeResult StatusJacqueline E Malenfant CNPLAB BLOOD ORDERABLESFinal ResultPerforming OrganizationAddressCity/State/ZIP CodePhone Number [facility] ([facility]) [address] [place] [address] * Basic metabolic panel (08/17/2025 4:54 PM EST)ComponentValueRef RangeTest MethodAnalysis TimePerformed AtPathologist PewmpjlwaGzvxdf144158 - 145 mmol/L 08/17/2025 5:35 PM [facility] ([facility])Potassium3.53.5 - 5.1 mmol/L 08/17/2025 5:35 PM [facility] ([facility])Gjbnnoeo62052 - 107 mmol/L 08/17/2025 5:35 PM [facility] ([facility])PF54332 - 31 mmol/L110/17/2024 5:35 PM [facility] ([facility])BUN97 - 25 mg/dL08/17/2025 5:35 PM EST [facility] ([facility])Creatinine0.660.60 - 1.20 mg/dL08/17/2025 5:35 PM [facility] ([facility])Czcumwx3676 - 100 mg/dL08/17/2025 5:35 PM [facility] ([facility])Calcium9.58.6 - 10.3 mg/dL08/17/2025 5:35 PM [facility] ([facility])Anion Vip920 - 20 mmol/L110/17/2024 5:35 PM [facility] ([facility])gYKY277.5>60.0 mL/min/1.73m* 5:35 PM [facility] ([facility])Comment:The [facility]???s estimated glomerular filtration rate (eGFR) will no longer include consideration of race in its calculation. The National Kidney Foundation???s eGFR Task Force developed new recommendations for the estimation of the glomerular filtration rate in the [place] They recommend immediate implementation of the new equation refit without the race variable in all laboratories because the calculation does not include race. In addition to not including race in the calculation and reporting, it included diversity in its development, and has acceptable performance characteristics and potential consequences that do not disproportionately affect any one group of ind ividuals.BUN/Creatinine Ratio13.611 5:35 PM [facility] ([facility])Specimen (Source)Anatomical Location / LateralityCollection Method / VolumeCollection TimeReceived TimeBloodVenous blood specimen / Unknown Venipuncture / Ceqvgtf6808/17/2025 4:54 PM EST08/17/2025 5:12 PM EST Narrative Authorizing ProviderResult TypeResult StatusJaclindsey Bermudez CNPLAB BLOOD ORDERABLESFinal ResultPerforming OrganizationAddressCity/State/ZIP CodePhone Number [facility] ([facility]) [address] [place] [address] documented in this encounter Visit Diagnoses Diagnosis Gastroparesis- Primary Change in bowel movement Nausea Nausea alone Gastroparesis Change in bowel movement documented in this encounter Care Teams Team MemberRelationshipSpecialtyStart DateEnd Michael Chávez MD [address] [facility] [address] [address] PCP - GeneralFamily Medicine02/11/25 Steffi Bermudez CNP [address] [place] [address] Gastroenterology01/20/25documented as of this encounter
--- OUTSIDE RECORDS SUMMARY | 2025-08-17 16:50 | XMS_ITS | Encounter Summary ---
Author Organization [facility] Address [address] [place] [address] Care Team Providers Care Sociology Teacher Name Role Phone Steffi Bermudez CNP Unavailable [phone] Michael Chávez MD Primary Care Provider [phone] Encounter Details DateTypeDepartmentCare Team (Latest Contact Info)Xzsatulezcg11/04/2025 4:50 PM EST - 08/17/2025 11:59 PM ESTHospital Encounter [facility] [address] [place] [phone] Gastroparesis; Change in bowel movement Discharge Disposition: Home or Self Care () Social History Tobacco UseTypesPacks/DayYears UsedDateSmoking Tobacco: FormerCigarettes0.310 [...] part ner or ex-partner?No08/17/2025PHQ-2AnswerDate RecordedPatient Health Questionnaire-2 Cxuuh30710/17/2024CommentsNoSex and Gender Information ValueDate RecordedSex Assigned at XwpymHnmqdb26/24/2025 2:19 PM EDTLegal Sex Odenle7811/26/2024 3:28 PM ESTGender IfxgdlviGgpaqe02/24/2025 2:19 PM EDTSexual OrientationHeterosexual or Zbsusmag83/24/2025 2:19 PM EDTdocumented as of this encounter Functional Status * BPAnswerDate of MifrrmbmfcSabjar116/ 2:45 PM Annamarie Gloria MA * PulseAnswerDate of JxgwmsmlqlTsxvyr7798/04/2025 2:45 PM Annamarie Gloria MA * Patient PositionAnswerDate of TcogktqapuFgweklUpfakby24/04/2025 2:45 PM Annamarie Villalobos MA * Fall RiskQuestionAnswerDate of AssessmentAuthorWorried about fallin 08/17/2025 2:46 PM Annamarie Gloria MAOne or more falls in the last year:No 08/17/2025 2:46 PM Annamarie Gloria MAFeels unsteady when walkin 08/17/2025 2:46 PM Annamarie Gloria MA * BPAnswerDate of SxlaysneunCghjfm168/ 2:45 PM Annamarie Gloria MA * PulseAnswerDate of NosngfdefqDujfqz4569/04/2025 2:45 PM Annamarie Gloria MA * Over the past 2 weeks, how often have you been bothered by any of the following problems?QuestionAnswerDate of AssessmentAuthorThoughts that you would be better off or hurting yourself in some wayNot at all08/17/2025 2:46 PM Annamarie Gloria MAPatient Health Questionnaire-9 Acwej62910/17/2024 2:46 PM Annamarie Gloria MATrouble falling or [...] 2:46 PM Annamarie Gloria MAPatient Health Questionnaire-2 Iuywb74410/17/2024 2:46 PM Annamarie Gloria MA * BP LocationAnswerDate of AssessmentAuthorLeft arm08/17/2025 2:45 PM Annamarie Gloria MA * Modified Malnutrition Screen Tool (MST)QuestionAnswerDate of AssessmentAuthor Have you been eating poorly because of a decreased appetite?Yes08/17/2025 2:46 PM Annamarie Gloria MAProvider VtgwccdnGzw84/04/2025 2:46 PM Annamarie Gloria MAHave you recently lost weight without trying?Yes08/17/2025 2:46 PM Annamarie Gloria MAHow much has your food intake decreased?50-75% of normal 08/17/2025 2:46 PM Annamarie Gloria MAIf yes, how much weight have you lost?Rvmjko4908/17/2025 2:46 PM Annamarie Gloria MAUnplanned weight loss over:Ltifdl2208/17/2025 2:46 PM Annamarie Gloria MA * Patient PositionAnswerDate of FjhwhauixrUwetlfYqzdtvv58/04/2025 2:45 PM Annamarie Villalobos MA documented as of this encounter Medications at Time of Discharge MedicationSigDispense QuantityRefillsLast FilledStart DateEnd Date amLODIPine (Norvasc) 5 mg tablet Take 1 tablet by mouth twice a day.10/29/2023 cholecalciferol, vitamin D3, 50 mcg (2,000 unit) capsule Take 1 capsule by mouth in the morning. fluticasone (Flonase) 50 mcg/actuation nasal spray 1 spray by Does not apply route in the morning.02/24/2020 hydrOXYzine pamoate (Vistaril) 25 mg capsule Take by mouth.08/24/2020 hyoscyamine 0.125 mg dissolvable tablet every 4 (four) hours if needed.07/25/2023 levothyroxine (Synthroid, Levoxyl) 137 mcg tablet Take 137 mcg by mouth in the morning. loratadine 10 mg capsule Take 1 capsule by mouth in the morning. M- Plus 27 mg iron- 1 mg tablet 1 tablet at bedtime.12/18/2024 magnesium oxide (Mag-Ox) 400 mg (241.3 mg magnesium) tablet Take 1 tablet by mouth twice a day.08/20/2024 metFORMIN XR (Glucophage-XR) 500 mg 24 hr tablet Take 1,000 mg by mouth twice a day.09/21/2024 methylcellulose, laxative, (CitruceL Sugar Free) powder Indications:Overflow diarrhea,Constipation by delayed colonic transitMix 1 tablespoon in 8 oz (240 mL) of cold water. Take by mouth once daily. Increase frequency as needed up to 2 tablespoons 3 times daily. 907 g 11007/05/2025 metoclopramide (Reglan) 5 mg tablet Indications:GastroparesisTake 1 tablet (5 mg) by mouth if needed in the morning, at noon, in the evening, and at bedtime (gastroparesis). 360 tablet nicotine (Nicoderm CQ) 14 mg/[address] 1 patch on the skin in the morning. omeprazole (PriLOSEC) [address] capsule Take 1 capsule by mouth in the morning. oxaprozin (Daypro) 600 mg tablet Take 1,200 mg by mouth in the morning. polyethylene glycol (Glycolax) 17 gram/dose powder Indications:Overflow diarrhea,Constipation by delayed colonic transitTake 238 g by mouth in 64 oz of water or sportsdrink for a one time bowel cleanse 238 g 07/05/2025 prochlorperazine (Compazine) 5 mg tablet Indications:Gastroparesis,NauseaTake 1 tablet (5 mg) by mouth every 6 (six) hours if needed for nausea or vomiting. 28 tablet QUEtiapine (SEROquel) 50 mg tablet Take 50 mg by mouth at bedtime. valACYclovir (Valtrex) 1 gram tablet if needed.05/15/2024 venlafaxine XR (Effexor-XR) 150 mg 24 hr capsule at bedtime.01/18/2025documented as of this encounter Plan of Treatment DateTypeDepartmentCare Team (Latest Contact Info)Mwhgdesrjrg44/24/2026 3:00 PM ESTOffice [facility] [address] [place] [address] [place] [phone] MalenfSteffi brown, STRATEGIC PLANNING SPECIALIST [address] [place], [place] [id number] documented as of this encounter Procedures Procedure NamePriorityDate/TimeAssociated DiagnosisCommentsXR ABDOMEN 1 VIEW Lsprtzk5708/17/2025 5:32 PM EST Gastroparesis Change in bowel movement documented in this encounter Results * XR [...] signed: Malik Mata MD. Authorizing ProviderResult TypeResult StatusJaclindsey Bermudez CNPIMG XR PROCEDURESFinal Result documented in this encounter Visit Diagnoses Diagnosis Gastroparesis Change in bowel movement documented in this encounter Care Teams Team MemberRelationshipSpecialtyStart DateEnd Date Michael Chávez MD [address] [facility] [place] [address] PCP - GeneralFamily Medicine02/11/25 Steffi Bermudez CNP [address] [place] [place] [address] Gastroenterology01/20/25documented as of this encounter
--- OUTSIDE RECORDS SUMMARY | 2025-08-17 17:15 | XMS_ITS | Encounter Summary ---
Author Organization [facility] Address [address] [place] [address] Care Team Providers Care Crimper Assembler Name Role Phone Steffi Bermudez CNP Unavailable [phone] Michael Chávez MD Primary Care Provider [phone] Encounter Details DateTypeDepartmentCare Team (Latest Contact Info)Gaakiveioez23/04/2025 5:15 PM ESTLab [facility] [address] [place] [phone] Gastroparesis; Change in bowel movement Social History Tobacco UseTypesPacks/DayYears UsedDateSmoking Tobacco: FormerCigarettes0.310 [...] part ner or ex-partner?No08/17/2025PHQ-2AnswerDate RecordedPatient Health Questionnaire-2 [place]758/04/2025CommentsNoSex and Gender Information ValueDate RecordedSex Assigned at LtsupJzxwtp61/24/2025 2:19 PM EDTLegal Sex Ndfwds4511/26/2024 3:28 PM ESTGender OtvjrnidOnkgga24/24/2025 2:19 PM EDTSexual OrientationHeterosexual or Wftojrif66/24/2025 2:19 PM EDTdocumented as of this encounter Functional Status * BPAnswerDate of DteewmhevlXhtbce917/08/17/2025 2:45 PM Annamarie Gloria MA * PulseAnswerDate of LehnwaaspzMypjri0855/04/2025 2:45 PM Annamarie Gloria MA * Patient PositionAnswerDate of GuposrxsvzJbogayKqlscyz37/04/2025 2:45 PM Annamarie Villalobos MA * Fall RiskQuestionAnswerDate of AssessmentAuthorWorried about fallin 08/17/2025 2:46 PM Annamarie Gloria MAOne or more falls in the last year:No 08/17/2025 2:46 PM Annamarie Gloria MAFeels unsteady when walkin 08/17/2025 2:46 PM Annamarie Gloria MA * BPAnswerDate of VreclcfcbhIetysr720/08/17/2025 2:45 PM Annamarie Gloria MA * PulseAnswerDate of XrkqakpecfYmxeku7120/04/2025 2:45 PM Annamarie Gloria MA * Over the past 2 weeks, how often have you been bothered by any of the following problems?QuestionAnswerDate of AssessmentAuthorThoughts that you would be better off or hurting yourself in some wayNot at all08/17/2025 2:46 PM Annamarie Gloria MAPatient Health Questionnaire-9 Xoito49210/17/2024 2:46 PM Annamarie Gloria MATrouble falling or [...] 2:46 PM Annamarie Gloria MAPatient Health Questionnaire-2 Jzske13110/17/2024 2:46 PM Annamarie Gloria MA * BP LocationAnswerDate of AssessmentAuthorLeft arm08/17/2025 2:45 PM Annamarie Gloria MA * Modified Malnutrition Screen Tool (MST)QuestionAnswerDate of AssessmentAuthor Have you been eating poorly because of a decreased appetite?Yes08/17/2025 2:46 PM Annamarie Gloria MAProvider ArhmckujSjl04/04/2025 2:46 PM Annamarie Gloria MAHave you recently lost weight without trying?Yes08/17/2025 2:46 PM Annamarie Gloria MAHow much has your food intake decreased?50-75% of normal 08/17/2025 2:46 PM Annamarie Gloria MAIf yes, how much weight have you lost?Jirpnm9908/17/2025 2:46 PM Annamarie Gloria MAUnplanned weight loss over:Bbahuz7108/17/2025 2:46 PM Annamarie Gloria MA * Patient PositionAnswerDate of DwyjuxseujQnqfxrSqyfetm17/04/2025 2:45 PM EST Annamarie Blunt MA documented as of this encounter Plan of Treatment DateTypeDepartmentCare Team (Latest Contact Info)Mqxrqjpvzvp15/24/2026 3:00 PM ESTOffice Visit [facility] [address] [place] [address] [place] [phone] Steffi Bermudez, TAMPING MACHINE OPERATOR [address] [place], [place] [phone] documented as of this encounter Procedures Procedure NamePriorityDate/TimeAssociated DiagnosisCommentsMAGNESIUMRoutine 08/17/2025 4:54 PM EST Gastroparesis Change in bowel movement BASIC METABOLIC KQAZEFhcidol58/04/2025 4:54 PM EST Gastroparesis Change in bowel movement documented in this encounter Results * (ABNORMAL) Magnesium (08/17/2025 4:54 PM EST)ComponentValueRef RangeTest MethodAnalysis TimePerformed AtPathologist SignatureMagnesium1.6(L)1.9 - 2.7 mg/dL08/17/2025 5:35 PM ESTUN[facility] ([facility])Specimen (Source) Anatomical Location / LateralityCollection Method / VolumeCollection Time Received TimeBloodVenous blood specimen / UnknownVenipuncture / Unknown 08/17/2025 4:54 PM EST08/17/2025 5:12 PM EST Narrative Authorizing ProviderResult TypeResult StatusJalarry Bermudez CNPLAB BLOOD ORDERABLESFinal ResultPerforming OrganizationAddressCity/State/ZIP CodePhone Number [facility] ([facility]) [address] [place] [address] * Basic metabolic panel (08/17/2025 4:54 PM EST)ComponentValueRef RangeTest MethodAnalysis TimePerformed AtPathologist BpqephwlyGxxzpb521688 - 145 mmol/L 08/17/2025 5:35 PM [facility] ([facility])Potassium3.53.5 - 5.1 mmol/L 08/17/2025 5:35 PM [facility] ([facility])Gcqjbckc61481 - 107 mmol/L 08/17/2025 5:35 PM [facility] ([facility])ET82262 - 31 mmol/L110/17/2024 5:35 PM [facility] ([facility])BUN97 - 25 mg/dL08/17/2025 5:35 PM [facility] ([facility])Creatinine0.660.60 - 1.20 mg/dL08/17/2025 5:35 PM [facility] ([facility])Bhjnsxq3910 - 100 mg/dL08/17/2025 5:35 PM [facility] ([facility])Calcium9.58.6 - 10.3 mg/dL08/17/2025 5:35 PM [facility] ([facility])Anion Qgb202 - 20 mmol/L110/17/2024 5:35 PM [facility] ([facility])uZGC922.5>60.0 mL/min/1.73m* 5:35 PM [facility] ([facility])Comment:[facility]???s estimated glomerular filtration rate (eGFR) will [...] affect any one group of ind ividuals.BUN/Creatinine Ratio13.6110/17/2024 5:35 PM [facility] ([facility])Specimen (Source)Anatomical Location / LateralityCollection Method / VolumeCollection TimeReceived TimeBloodVenous blood specimen / Unknown Venipuncture / Xxtxewo9608/17/2025 4:54 PM EST08/17/2025 5:12 PM EST Narrative Authorizing ProviderResult TypeResult StatusJaclindsey Bermudez CNPLAB BLOOD ORDERABLESFinal ResultPerforming OrganizationAddressCity/State/ZIP CodePhone Number [facility] ([facility]) [address] [place] [address] documented in this encounter Visit Diagnoses Diagnosis Gastroparesis Change in bowel movement documented in this encounter Care Teams Team MemberRelationshipSpecialtyStart DateEnd Date Michael Chávez MD [address] [facility] [address] [address] PCP - GeneralFamily Medicine02/11/25 Steffi Bermudez CNP [address] [place] [address] Gastroenterology01/20/25documented as of this encounter
--- OUTSIDE RECORDS SUMMARY | 2025-08-26 11:17 | XMS_ITS | Clinical Summary ---
Author Organization [facility] Address [address], [address] [place] [address] Care Team Providers Care Shuttle Spotter Name Role Phone Michael Chávez MD Primary Care Provider [phone] Allergies Active AllergyReactionsCriticalityNoted DateCommentsBeta Adrenergic Blockers 03/19/20196935Kqgowpkip75/16/2020LatexShortness Of Breath,OpamlzhxFwcx87/18/2014 Cbexdorwtp51/16/2020Ondansetron HclOther (See Comments)Low11/16/2017 Migraines Medications MedicationSigDispense QuantityRefillsLast FilledStart DateEnd DateStatus omeprazole (PRILOSEC) 40 MG delayed release capsule Take 1 capsule by mouth dailyActive levothyroxine (SYNTHROID) 137 MCG tablet Take 1 tablet by mouth nightlyActive Cholecalciferol (VITAMIN D) 2000 units CAPS capsule Take 1 capsule by mouth dailyActive fluticasone (FLONASE) 50 MCG/ACT nasal spray 1 spray by Nasal route daily02/24/2020Active nicotine (NICODERM CQ) 14 MG/24HR Place 1 patch onto the skin every 24 hoursActive hydrOXYzine (VISTARIL) 25 MG capsule Take 1 capsule by mouth 4 times daily as needed for Zaoibpa7508/24/2020Active venlafaxine (EFFEXOR XR) 75 MG extended release capsule 2 capsules iztgqex2808/24/2020Active loratadine (CLARITIN) 10 MG capsule Take 1 capsule by mouth dailyActive hyoscyamine (LEVSIN/SL) [address] 1 tablet under the tongue every 6 hours as needed for Diarrhea or Cramping 10/12/2023Active amLODIPine (NORVASC) 5 MG tablet Take 1 tablet by mouth 2 times dailyActive magnesium oxide (MAG-OX) 400 MG tablet Take 1 tablet by mouth 2 times daily08/20/2024ctive oxaprozin (DAYPRO) 600 MG tablet TAKE 2 TABLETS BY MOUTH EACH MORNINGActive QUEtiapine (SEROQUEL) 50 MG tablet Take 1 tablet by mouth nightlyActive metFORMIN (GLUCOPHAGE-XR) 500 MG extended release tablet TAKE 2 TABLETS BY MOUTH IN THE MORNING AND TAKE 2 TABLETS BY MOUTH AT BEDTIME 120 tablet 5Active Vit-Fe Fumarate-FA (M-ROBBIN PLUS) 27-1 MG TABS TAKE 1 TABLET BY MOUTH DAILY 30 tablet 5Active Vit-Fe Fumarate-FA (M-ROBBIN PLUS) 27-1 MG TABS Take 1 tablet by mouth daily 30 tablet 121Discontinued metFORMIN (GLUCOPHAGE-XR) 500 MG extended release tablet TAKE TWO (2) TABLETS BY MOUTH IN THE MORNING AND TAKE TWO (2) TABLETS BY MOUTH AT BEDTIME 120 tablet 101Discontinued Active Problems ProblemNoted DateDiagnosed DatePossible early acute jdytatnwwzxg46/04/2025Acute abdominal pain02/14/20251669Ssjcovurrvvg61/04/2025bdominal pain, right lower /04/2025Hypothyroidism due to Christie's ysoemurvzkc95/02/2022Uterine elslyzmnv43/31/2020Gastro-esophageal reflux disease without esophagitis 10/28/2019Hypothyroidism, fvjojgydgvp46/15/2020Left lower quadrant pain 11/20/2018Endometriosis determined by laparoscopyParatubal cystEndometrial thickening on ultrasoundEndometriosis of left fallopian tubePost-op pain Encounters DateTypeDepartmentCare ZzinZqjdozdahsy50/04/2025[facility] Part of [address] [place] [id number] Lizbet Griffin, DO Medication Vbhfsj8207/12/2025Transcribe Orders [place] [facility] [address] [place] [address] [phone] Steffi Bermudez, BAND LOG MILL AND CARRIAGE OPERATOR - TRAPPER ANIMAL Metabolic dysfunction-associated steatohepatitis (MASH) (Primary Dx)07/02/2025 10:03 AM EDT - 07/04/2025 11:59 PM EDTHospital Encounter [address] [address] Discharge Disposition: Home or Self Care07/02/2025 10:02 AM EDT - 07/04/2025 11:59 PM EDTHospital Encounter [address] [address] Discharge Disposition: Home or Self Care07/02/2025 10:01 AM EDT - 07/04/2025 11:59 PM EDTHospital Encounter [address] [address] Nausea; Loss of weight; Chronic abdominal pain Discharge Disposition: Home or Self Care06/30/2025Transcribe Orders [place] [facility] [address] [place] [address] Steffi Bermudez, BAND LOG MILL AND CARRIAGE OPERATOR - TRAPPER ANIMAL Nausea (Primary Dx); Loss of weight; Chronic abdominal pain06/24/2025 6:04 PM EDT - 06/24/2025 11:59 PM EDTHospital Encounter [facility] [address] [place] [address] Discharge Disposition: Home or Self Carefrom Last 3 Months Immunizations ImmunizationAdministration DatesNext DueInfluenza Vaccine, unspecified cocdsjzdgnw27/02/2018Influenza, FLUARIX, FLULAVAL, FLUZONE (age 6 mo+) and AFLURIA, (age 3 y+), Quadv PF, 0.5mL08/11/2023,07/01/2018,08/09/2016TDaP, ADACEL (age 10y-64y), BOOSTRIX (age 10y+), IM, 0.5mL03/22/2022 Family History Medical HistoryRelationNameCommentsMental IllnessFatherJerryBleeding ProbMother SharonOtherOtherNi family h/o ovarian or breast cancer. No family h/o DVT. HypertensionPaternal GrandfatherRichardStrokePaternal GrandfatherRichardRelation NameStatusCommentsBrotherAliveFatherJerryDeceasedMaternal GrandfatherDeceased Maternal GrandmotherDeceasedMotherSharonAliveOtherOtherPaternal Grandfather RichardDeceasedPaternal GrandmotherDeceased Social History Tobacco UseTypesPacks/DayYears UsedDateSmoking Tobacco: FormerCigarettes0.310 07/14/2008 - 07/14/2018Smokeless Tobacco: Never Comments:Still on patches Alcohol UseStandard Drinks/WeekCommentsNo0 (1 standard drink = 0.6 oz pure alcohol)[facility] UtilitiesAnswerDate RecordedIn the past 12 months has the electric, gas, oil, or water company threatened to shut off services in your home?No 02/14/2025PHQ-2AnswerDate RecordedPHQ-9 Total Vyswn27312/01/2022Hunger Vital Sign AnswerDate RecordedWithin the past 12 months, you worried that your food would run out before you got the money to buymore.Never true02/14/2025Within the past 12 months, the food you bought just didn't last and you didn't have money to get more.Never true02/14/2025PRAPARE - TransportationAnswerDate RecordedIn the past 12 months, has lack of transportation kept you from medical appointments or from getting medications?No02/14/2025In the past 12 months, has lack of transportation kept you from meetings, work, or from getting things needed for daily living?No02/14/2025Housing Stability Vital SignAnswerDate RecordedIn the last 12 months, was there a time when you were not able to pay the mortgage or rent on time?No02/14/2025In the past 12 months, how many times have you moved where you were living?t any time in the past 12 months, were you homeless or living in a detention (including now)?No02/14/2025Food Insecurity AnswerDate RecordedWithin the past 12 months, you worried that your food would run out before you got the money to buymore.Within the past 12 months, the food you bought just didn't last and you didn't have money to get more.Interpersonal Safety Domain Source: IP Abuse ScreeningAnswerDate RecordedPhysical cpufrIbanzk58/04/2025Verbal fuxeoWbsrql61/04/2025Emotional qepdiOzgjaq12/04/2025Financial plmjfKcdbjf04/04/2025Sexual zhplxEbfprq79/04/2025 CommentsNoSex and Gender InformationValueDate RecordedSex Assigned at OulfvZpfohz82/16/2020 2:59 AM EDTLegal VsyBchqoi39/10/2013 2:47 PM ESTGender XebuoslaOfcjfh29/16/2020 2:59 AM EDTSexual NloeevmktyaNolbyfdc51/16/2020 2:59 AM EDT Last Filed Vital Signs Vital SignReadingTime TakenCommentsBlood Spatyqvb193/7805 7:00 AM EDT Dbkbq704302/14/2025 7:00 AM GLBMfpvngpxbjz19.3 ??C (97.4 ??F)02/14/2025 7:00 AM EDTRespiratory Oseq286802/14/2025 7:44 AM EDTOxygen Mvfrgjgdaq87%02/14/2025 7:00 AM EDTInhaled Oxygen Concentration--Ndtwyj51.2 kg (207 lb 9.6 oz)02/14/2025 1:55 AM INHUluogh176.1 cm (5' 5 )02/14/2025 1:55 AM EDTBody Mass Index34.55002/14/2025 1:55 AM EDT Plan of Treatment DateTypeDepartmentCare Team (Latest Contact Info)Tiddvrrlisb75/02/2025 1:45 PM ESTOffice Visit [facility] Part of [address] [place] [address] Lizbet Griffin, DO [address] [place] [address] [place] [address] yearlyHealth MaintenanceDue DateLast DoneCommentsVaricella vaccine (1 of 2 - 13+ 2-dose series)2002HIV xmngqi5504/17/2004Hepatitis B vaccine (1 of 3 - 19+ 3- dose series)2008Depression Gqffcm44/Flu vaccine (#1) /, 08/11/2023, 07/19/2022, Additional history existsCOVID-19 Vaccine (1 - season)2025Pap smear, 06/04/2018 Cervical cancer myhmps3308/28/2027HPV (without or with Pap) DTaP/Tdap/Td vaccine (2 - Td or Tdap)neumococcal 0-49 years VaccineAged Out07/01/2018No longer eligible based on patient's age to complete this topicHepatitis C tjosdmVeoagsfiy49/18/2022, 09/20/2020Diabetes screen Fwhhzbqjkhvj75/11/2024, 10/31/2023, 10/02/2022, Additional history existsHPV vaccine (No Doses Required)CompletedHepatitis A vaccineAged OutNo longer eligible based on patient's age to complete this topicHib vaccineAged OutNo longer eligible based on patient's age to complete this topicMeningococcal (ACWY) vaccineAged OutNo longer eligible based on patient's age to complete this topicMeningococcal B vaccineAged OutNo longer eligible based on patient's age to complete this topicPolio vaccineAged OutNo longer eligible based on patient's age to complete this topic Procedures Procedure NamePriorityDate/TimeAssociated DiagnosisCommentsNM GASTRIC EMPTYING Lgmytpd4807/02/2025 2:47 PM EDT Nausea Loss of weight Chronic abdominal pain PANCREATIC ELASTASE, XBIKRUxsyzpr98/11/2025 5:20 PM EDT FECAL FAT, FFXQWGSCCWADcdkgyd76/11/2025 5:20 PM EDT HEMOGLOBIN B9KFobgtip54/11/2024 10:48 AM EST HUMAN PAPILLOMAVIRUS (HPV) DNA PROBE THIN PREP HIGH WUHHHcydpiz73/15/2022 7:30 AM EST HUMAN RESOURCES INTERN UOQVPVJNIwikwpj64/15/2022 7:30 AM EST HEPATITIS PANEL, WERDKGdffflv92/18/2022 3:08 PM EST from Last 3 Months or Most Recently Relevant to Health Maintenance Results * NM GASTRIC EMPTYING (07/02/2025 2:47 PM EDT)Anatomical RegionLaterality ModalityAbdomenNuclear MedicineSpecimen (Source)Anatomical Location / LateralityCollection Method / VolumeCollection TimeReceived Time07/02/2025 11:09 PM EDT Impressions 07/02/2025 11:10 PM EDT [...] is noted. IMPRESSION: 1. Delayed gastric emptying. Authorizing ProviderResult TypeResult StatusJacqueline Malenfant BAND [employer] MILL AND CARRIAGE OPERATOR - CNPIMG NM ORDERABLESFinal Result * Pancreatic elastase, fecal (06/24/2025 5:20 PM EDT)ComponentValueRef RangeTest MethodAnalysis TimePerformed AtPathologist SignatureFecal Pancreatic Elastase-1>800>=100 ug/g006/24/2025 5:20 PM EDTARUP LABORATORYComment: (NOTE) REFERENCE INTERVAL: Pancreatic Elastase Fecal by ? Immunoassay Less than 100 ug/g............Severe insufficiency 100 - 199 ug/g................Moderate insufficiency 200 ug/g or greater...........Normal INTERPRETIVE INFORMATION: Pancreatic Elastase ? Fecal by Immunoassay Reference intervals do not apply for infants less than one month old. Performed By: [facility] [address] [place] [address] Portfolio Director: Yuriy Cardenas MD, PhD CLIA Number: [id number] Specimen (Source)Anatomical Location / LateralityCollection Method / Volume Collection TimeReceived Time06/24/2025 5:20 PM EDT06/24/2025 6:08 PM EDT Narrative Authorizing ProviderResult TypeResult StatusMichael Chávez MDBODY FLUIDS AND STOOLS ORDERABLESFinal ResultPerforming OrganizationAddressCity/State/ZIP Code Phone Number [facility] [address] [place] [address], [facility] [phone] [facility] [address] [phone] * Fecal Fat, Qualitative (06/24/2025 5:20 PM EDT)ComponentValueRef RangeTest MethodAnalysis TimePerformed AtPathologist SignatureFecal Neutral FatNormal Guhvrj4406/24/2025 5:20 PM EDTARUP LABORATORYFat Qualitative Split StoolNormal Dferer9806/24/2025 5:20 PM EDTARUP LABORATORYComment: (NOTE) INTERPRETIVE INFORMATION: Fecal Fat Qualitative Neutral fats include the monoglycerides, diglycerides, and triglycerides while split fats are the free fatty acids that are liberated from them. Impaired synthesis or secretion of pancreatic enzymes or bile may cause an increase in neutral fats while an increase in split fats suggests impaired absorption of nutrients. Performed By: [facility] [address] [place] [address] Portfolio Director: Yuriy Cardenas MD, PhD CLIA Number: [id number] Specimen (Source)Anatomical Location / LateralityCollection Method / Volume Collection TimeReceived Time06/24/2025 5:20 PM EDT06/24/2025 6:08 PM EDT Narrative Authorizing ProviderResult TypeResult StatusMichael Chávez MDBODY FLUIDS AND STOOLS ORDERABLESFinal ResultPerforming OrganizationAddressCity/State/ZIP Code Phone Number [facility] [address] [place], [place] [address] [place] [address] [facility] [address] [phone] * Hemoglobin A1C (09/23/2024 10:48 AM EST)ComponentValueRef RangeTest Method Analysis TimePerformed AtPathologist SignatureHemoglobin A1C4.54.0 - 6.0 % 09/23/2024 10:48 AM ESTMERCY LABORATORIESEstimated Avg Flezkyu32ia/dL 09/23/2024 10:48 AM ESTMERCY LABORATORIESComment: The ADA and AACC recommend providing the estimated average glucose result to permit better patient understanding of their HBA1c result. Specimen (Source)Anatomical Location / LateralityCollection Method / Volume Collection TimeReceived Time09/23/2024 10:48 AM EST09/23/2024 10:49 AM EST Narrative Authorizing ProviderResult TypeResult Althea Chávez MDCHEMISTRY ORDERABLES Final ResultPerforming OrganizationAddressCity/State/ZIP CodePhone Number [facility] [address] [place] [address], [facility] [phone] [address], [facility] [phone] * Human papillomavirus (HPV) DNA probe thin prep high risk (08/28/2022 7:30 AM EST)ComponentValueRef RangeTest MethodAnalysis TimePerformed AtPathologist SignatureSpecimen Description.LGYJAU4208/28/2022 7:30 AM ESTMERAVOS [facility] HPV Sample.THIN PREP08/28/2022 7:30 AM ESTMERCY LABORATORIESHPV, Genotype 16 Not DetectedNot Iyujvzbo61/15/2022 7:30 AM ESTMERCY LABORATORIESHPV, Genotype 18Not DetectedNot Odljsone42/15/2022 7:30 AM ESTMERCY LABORATORIESHPV, High Risk OtherNot DetectedNot Elwmyzsv93/15/2022 7:30 AM E[facility] LABORATORIESHPV, Gnmpvkreqjlbbi74/15/2022 7:30 AM ESTMERAVOS [facility] LABORATORIESComment: This test amplifies and detects DNA of 14 high-risk HPV types associated with cervical cancer and its precursor lesions (HPV types 16,18, 31, 33, 35, 39, 45, 51, 52, 56, 58, 59, 66, and 68). ? Sensitivity may be affected by specimen collection methods, stage of infection, and the presence of interfering substances. Results should be interpreted in conjunction with other available laboratory and clinical data. A negative high-risk HPV result does not exclude the possibility of future cytologic HSIL or underlying CIN2-3 or cancer. ? This test is intended for medical purposes only and is not valid for the evaluation of suspected sexual abuse or for other forensic purposes. Specimen (Source)Anatomical Location / LateralityCollection Method / Volume Collection TimeReceived TimeCERVICAL SWAB / Ktiihkc2808/28/2022 7:30 AM EST Narrative Authorizing ProviderResult TypeResult StatusCarmen F Kyleigh-Lr DOHEMATOLOGY ORDERABLESFinal ResultPerforming OrganizationAddressCity/State/ZIP CodePhone Number [facility] [address] [place] [address], [facility] [phone] [place] [id number], [facility] [phone] * HUMAN RESOURCES INTERN Cytology (08/28/2022 7:30 AM EST)ComponentValueRef RangeTest Method Analysis TimePerformed AtPathologist SignatureCytology ReportINTERPRETATION Cervical material, (ThinPrep vial, Imaging-assisted review): Specimen Adequacy: ? Satisfactory for evaluation. ? - Endocervical/transformation zone component present. Descriptive Diagnosis: ? Negative for intraepithelial lesion or malignancy. Comments: ? Specimen was screened at [facility], [address]. [facility] [address] Supervisor Fine Grading: ?? TAVIA Pitt(ASCP) Electronically Signed Out jaime/09/09/2022 Procedure/Addendum HPV Procedure Report ? Date Ordered: ? 08/29/2022 ? Status: Signed Out ? Date Complete: ? 08/30/2022 ? By: System Interface ? Date Reported: ? 08/30/2022 ? Sample: ??HPV Type 16 ?Result: ?? Not Detected ?Ref Range: (Not Detected) Sample: ??HPV Type 18 ?Result: ?? Not Detected ?Ref Range: (Not Detected) Sample: ??Other High Risk HPV ?Result: ?? Not Detected ?Ref Range: (Not Detected) Sample: ??HPV Interp ?Result: ? Ref Range: (Not Detected) This test amplifies and detects DNA of 14 high-risk HPV types associated with cervical cancer and its precursor lesions (HPV types 16,18, 31, 33, 35, 39, 45, 51, 52, 56, 58, 59, 66, and 68). ? Sensitivity may be affected by specimen collection methods, stage of infection, and the presence of interfering substances. Results should be interpreted in conjunction with other available laboratory and clinical data. A negative high-risk HPV result does not exclude the possibility of future cytologic HSIL or underlying CIN2-3 or cancer. ? This test is intended for medical purposes only and is not valid for the evaluation of suspected sexual abuse or for other forensic purposes. ?? Source: A: Cervical material, (ThinPrep vial, Imaging-assisted review) Clinical History Z01.419 Routine runner out exam without abnormal findings Co-Test: ??ThinPrep Pap with high risk HPV testing GYNECOLOGIC CYTOLOGY REPORT Patient Name: KRISTEN LEWIS [facility] Rec: [id number] Path Number: [id number] [facility] ??LABORATORIES CONSULTING PATHOLOGISTS [facility] ANATOMIC PATHOLOGY [address] [place] [address]. ??[place], [place] [address] [facility] LABORATORIESSpecimen (Source)Anatomical Location / LateralityCollection Method / VolumeCollection TimeReceived TimeCERVICAL DAIZYHYT27/15/2022 7:30 AM EST08/29/2022 7:30 AM EST Narrative Authorizing ProviderResult TypeResult StatusCarmen F Elias DO PATHOLOGY/CYTOLOGY ORDERABLESFinal ResultPerforming OrganizationAddress City/State/ZIP CodePhone Number [facility] [address] [place], [place] [address] [phone] [phone] * Hepatitis Panel, Acute (12/01/2021 3:08 PM EST)ComponentValueRef RangeTest MethodAnalysis TimePerformed AtPathologist SignatureHepatitis B Surface Ag KSCRCQEUGYHMTIBBOOUIME13/18/2022 3:08 PM ESTMERCY LABORATORIESHepatitis C Ab IIZDJSEVVOQRJYKQZVIQIO30/18/2022 3:08 PM ESTMERCY LABORATORIESComment: ? The hepatitis C procedure used in our laboratory is a Chemiluminescent test specific for three recombinant HCV antigens. ??A negative anti-HCV result indicates that the antibodies to hepatitis C virus are not present at this time. Individuals with reactive anti-HCV should be considered infected and infectious until proven otherwise. ??Confirmation of all equivocal or reactive results is recommended by ordering HCV RNA by PCR. Hep B Core Ab, InKYZPISCHRRBNFJZPDWOTPKA28/18/2022 3:08 PM [facility] Hep A MrSCYWKEYAXASTKAQQZQCMGIU83/18/2022 3:08 PM ESTMERCY LABORATORIESSpecimen (Source)Anatomical Location / LateralityCollection Method / VolumeCollection TimeReceived Time12/01/2021 3:08 PM EST12/01/2021 3:09 PM EST Narrative Authorizing ProviderResult TypeResult StatusDoketty Chávez MDIMMUNOLOGY ORDERABLESFinal ResultPerforming OrganizationAddressCity/State/ZIP CodePhone Number [facility] [address] [place] [address], [facility] [phone] [facility] [address] [place] [address], [facility] [phone] from Last 3 Months or Most Recently Relevant to Health Maintenance Insurance Advance Directives * Full Code (Latest Code Status on File) Date ActivatedDate InactivatedComments02/14/2025 1:55 AM02/14/2025 7:04 PM * Full Code Date ActivatedDate PtldjwzybkiRbarvaic53/1/2021 9:57 AM07/14/2021 2:19 PM * Full Code Date ActivatedDate XvenalbhypxDrdajyex58/20/2020 7:25 AM09/02/2020 2:12 PM * Full Code Date ActivatedDate EhrxkewcukeHcbuizit13/8/2018 9:23 AM07/21/2018 3:54 PM Care Teams Team MemberRelationshipSpecialtyStart DateEnd Date Michael Chávez MD [address] [place] [address] [facility] - General10/22/13
--- OUTSIDE RECORDS SUMMARY | 2025-08-26 11:17 | XMS_ITS | Encounter Summary ---
Author Organization [facility] Address [address] [place] [address] Care Team Providers Care Field Assessor Name Role Phone Steffi Bermudez CNP Unavailable [phone] Michael Chávez MD Primary Care Provider [phone] Reason for Visit * ReasonOnset KcisIrmpxijjThdbzdo47/10/2025 Encounter Details DateTypeDepartmentCare Team (Latest Contact Info)Ehhkugujpst77/10/2025Telephone [facility] [address] [address] Rosalinda Alcala, FAINA Results Social History Tobacco UseTypesPacks/DayYears UsedDateSmoking Tobacco: FormerCigarettes0.310 [...] part ner or ex-partner?No08/17/2025PHQ-2AnswerDate RecordedPatient Health Questionnaire-2 Sitvb51510/17/2024CommentsNoSex and Gender Information ValueDate RecordedSex Assigned at KuwpaNdldht68/24/2025 2:19 PM EDTLegal Sex Asdccd5711/26/2024 3:28 PM ESTGender WccwdlpdEsiptn19/24/2025 2:19 PM EDTSexual OrientationHeterosexual or Yprqaywh13/24/2025 2:19 PM EDTdocumented as of this encounter Miscellaneous Notes * Telephone Encounter - Rosalinda Alcala RN - 08/23/2025 1:56 PM EST Patient calls asking about next steps after competing X-ray and labs. Please advise documented in this encounter Plan of Treatment DateTypeDepartmentCare Team (Latest Contact Info)Htgrhbuxfwd42/24/2026 3:00 PM ESTOffice Visit [facility] [address] [place] [address] [place] [phone] Steffi Bermudez, EMPLOYMENT CLERK [address] [place], [place] [phone] documented as of this encounter Visit Diagnoses Not on filedocumented in this encounter Care Teams Team MemberRelationshipSpecialtyStart DateEnd Date Michael Chávez MD [address] [facility] [address] [address] PCP - GeneralFamily Medicine02/11/25 Steffi Bermudez, EMPLOYMENT CLERK [address] [place] [address] Gastroenterology01/20/25documented as of this encounter
--- OUTSIDE RECORDS SUMMARY | 2025-08-26 11:17 | XMS_ITS | Encounter Summary ---
Author Organization [facility] Address [address] [place] [address] Care Team Providers Care Frog Catcher Name Role Phone Steffi Bermudez WILDLIFE OFFICER Unavailable Michael Chávez MD Primary Care Provider [phone] Encounter Details DateTypeDepartmentCare Team (Latest Contact Info)Mpbxiiyupya55/12/2025Results Follow-Up [facility] [address] [place] [address] Steffi Bermudez, WILDLIFE OFFICER [address] [place] [id number] Basic metabolic panel, Magnesium, XR abdomen 1 view Social History Tobacco UseTypesPacks/DayYears UsedDateSmoking Tobacco: FormerCigarettes0.310 [...] part ner or ex-partner?No08/17/2025PHQ-2AnswerDate RecordedPatient Health Questionnaire-2 Yhpnp96810/17/2024CommentsNoSex and Gender Information ValueDate RecordedSex Assigned at OjgxnDeqnnb04/24/2025 2:19 PM EDTLegal Sex Fwevbs9311/26/2024 3:28 PM ESTGender HguskxzxGkwihu35/24/2025 2:19 PM EDTSexual OrientationHeterosexual or Wjyymzzz62/24/2025 2:19 PM EDTdocumented as of this encounter Plan of Treatment DateTypeDepartmentCare Team (Latest Contact Info)Ybukyujblnx08/24/2026 3:00 PM ESTOffice Visit [facility] [address] [place] [address] [place] [phone] Steffi Bermudez, WILDLIFE OFFICER [address] [place], [place] [phone] documented as of this encounter Visit Diagnoses Not on filedocumented in this encounter Care Teams Team MemberRelationshipSpecialtyStart DateEnd Date Michael Chávez MD [facility] [place] [address] PCP - GeneralFamily Medicine02/11/25 MaleSteffi hampton WILDLIFE OFFICER [address] [place] [address] Gastroenterology01/20/25documented as of this encounter
--- OUTSIDE RECORDS SUMMARY | 2025-08-26 11:18 | XMS_ITS | Clinical Summary ---
Author Organization [facility] Address [address] [place] [address] Care Team Providers Care Metal Wire Coating Operator Name Role Phone Michael Chávez MD Primary Care Provider [phone] Stalin Clarke MD Unavailable [phone] Michele Peterson DO Unavailable [phone] Allergies Active AllergyReactionsCriticalityNoted DateCommentsBeta Adrenergic BlockersRash Low03/19/20194350Zkejeuliv91/16/2020LatexAnaphylaxis,Rash,Shortness of breath, GxllmciuFrpl72/18/2014OndansetronHeadache,XohyhJpi33/03/2018 Migraines Medications MedicationSigDispense QuantityRefillsLast FilledStart DateEnd DateStatus amLODIPine (Norvasc) 5 MG tablet 10/29/2023ctive cholecalciferol (Vitamin D-3) 50 MCG (1999) capsule Take 1 capsule by mouth DailyActive fluticasone (Flonase) 50 MCG/ACT nasal spray Administer 1 spray into each nostril Daily02/03/2024ctive Vistaril 25 MG capsule Active Loratadine 10 MG capsule Take 1 capsule by mouth DailyActive metFORMIN XR (Glucophage-XR) 500 MG 24 hr tablet Active nicotine (Nicoderm, Step 2) 14 MG/24HR patch Place 1 patch on the skinActive omeprazole (PriLOSEC) [address] capsule Take 1 capsule by mouth DailyActive oxaprozin (Daypro) 600 MG tablet Active Tmwtrz-MxCqm-Jaspw-Ca-Winchester 3 ( + Complete Multi) 18-0.8 & 290 MG therapy Active QUEtiapine (SEROquel) 50 MG tablet Active venlafaxine XR (Effexor XR) 150 MG 24 hr tablet Active magnesium oxide (Mag-Ox) 400 mg tablet Take 1 tablet by mouth in the morning and 1 tablet before bedtime.Active azelastine (Optivar) 0.05 % ophthalmic solution Administer 1 drop into affected eye(s) in the morning and 1 drop in the evening. 5Active Bisacodyl EC 5 MG EC tablet 5Active magnesium oxide (Mag-Ox) 400 MG tablet 5Active Vit-Fe Fumarate-FA (M- Plus) 27-1 MG tablet Take 1 tablet by mouth Daily5Active levothyroxine (Synthroid, Levoxyl) 137 MCG tablet Indications:Christie's diseaseTAKE 1 TABLET BY MOUTH AT BEDTIME 90 tablet 5Active levothyroxine (Synthroid, Levoxyl) 137 MCG tablet Indications:Christie's diseaseTake 137 mcg by mouth at bedtime 90 tablet Discontinued Active Problems ProblemNoted DateDiagnosed RzzsFihxzn39/26/6602Rhrtzio52/26/2024Colitis 02/07/2024Endometrial thickening on bvblnxaqla14/26/0573Btelzvjahuqbf40/26/2024 Endometriosis of left fallopian tube02/07/2024Hashimoto's prmsuun9202/07/2024High blood iqcfpdyy84/26/2024NAFLD (nonalcoholic fatty liver disease)02/07/2024 Paratubal cyst02/07/2024CO (polycystic ovaries)4Post-op pain02/07/2024 Hypothyroidism due to Christie's /02/2022Uterine leiomyoma 06/13/2020Gastro-esophageal reflux disease without gugrmyodylj39/15/2020 Hypothyroidism, dvsuzbmgciy26/15/2020Left lower quadrant pain11/20/2018 Resolved Problems ProblemNoted DateDiagnosed DateResolved DateAcute abdominal pain02/14/2025 05/24/2025 Encounters DateTypeDepartmentCare LgzuMtqquyrymit23/04/2025Refill [facility] [address] [place] [address] Stalin Clarke MD Christie's otunjpl8007/12/2025 1:45 PM EDTOffice Visit [facility] [address] [place] [address] Michele Peterson, DO Status post partial thyroidectomy (Primary Dx)07/12/2025amboo flowsheet [facility] [address] [place] [address] Michele Peterson, 07/12/20257078Irfmsf72/26/2025 9:15 AM EDTOffice Visit [facility] [address] [place] [address] Michele Peterson, DO Status post partial mcsornwpmyopd08/26/2025amboo flowsheet [facility] [address] [place] [address] Michele Peterson, 06/08/20251899Wbgqmi70/19/2025 1:00 PM EDTProcedure Visit [facility] Michele Peterson, DO Thyroid mass of unclear etiology (Primary Dx)from Last 3 Months Immunizations ImmunizationAdministration DatesNext DueInfluenza, Nnymvuerufe77/02/2018 Influenza, injectable, quadrivalent, preservative free08/11/2023,07/01/2018, 08/09/2016Influenza, recombinant, quadrivalent, injectable, preservative free 07/19/2022,06/30/2021,07/30/2020,07/31/2019Influenza, seasonal, injectable 07/15/2018Influenza, seasonal, injectable, preservative free07/27/2024, 07/26/2015Pneumococcal Polysaccharide JKDN5428/9869Qgcb09 Family History Medical HistoryRelationNameCommentsDiabetesBrotherDavidMental illnessBrother DavidAnxiety disorderFatherJerryArthritisFatherJerryBipolar disorderFatherJerry DepressionFatherJerryDislocationsFatherJerryMental illnessFatherJerryMigraines FatherJerrySchizophreniaFatherJerrySevere sprainsFatherJerryCancerMaternal GrandfatherRayUlcerative colitisMaternal GrandfatherRayCancerMaternal GrandmotherJaneArthritisMotherSharonHyperlipidemiaMotherSharonMiscarriages / StillbirthsMotherSharonOsteoporosisMotherSharonRashes / Skin problemsMother SharonSevere sprainsMotherSharonVision lossMotherSharonCOPDMother's SisterPat Mental illnessMother's SisterPatAlcohol abusePaternal GrandfatherRichardDiabetes Paternal GrandfatherRichardHeart diseasePaternal GrandfatherRichardHeart failure Paternal GrandfatherRichardHypertensionPaternal GrandfatherRichardStrokePaternal GrandfatherRichardRelationNameStatusCommentsBrotherDavidFatherJerryDeceased Maternal GrandfatherRayMaternal GrandmotherJaneMotherSharonAliveMother's Sister PatPaternal GrandfatherRichard Social History Tobacco UseTypesPacks/DayYears UsedDateSmoking Tobacco: FormerCigarettes0.310 Smokeless Tobacco: Never Comments:use patches daily Alcohol UseStandard Drinks/WeekCommentsNot Currently0 (1 standard drink = 0.6 oz pure alcohol)SociallyCommentsUnknownSex and Gender InformationValueDate RecordedSex Assigned at FfkcsVgpahv84/25/2024 5:35 PM EDTLegal SexFemale 12/26/2022 6:51 PM EDTGender ZbqjndjwYnzdit39/25/2024 5:35 PM EDTSexual QchxkhrpfpoNqapxcqk03/25/2024 5:35 PM EDT Last Filed Vital Signs Vital SignReadingTime TakenCommentsBlood Kgtnhypw205/8601 10:14 AM EST Kbdfu7586 10:14 AM ESTTemperature--Respiratory Zwwb2993 11:06 AM ESTOxygen Qkyenizhtb65%10/27/2024 10:14 AM ESTInhaled Oxygen Concentration-- Lczatu42.5 kg (215 lb)07/12/2025 1:42 PM ZXPGsltzx780.1 cm (5' 5 )07/12/2025 1:42 PM EDTBody Mass Index35.78007/12/2025 1:42 PM EDT Plan of Treatment DateTypeDepartmentCare Team (Latest Contact Info)Fzaikknztxr85/16/2025 11:00 AM ESTOffice Visit [facility] [address] [place] [address] Stalin Clarke MD [address] [place] [address] Procedures Procedure NamePriorityDate/TimeAssociated IuklhtjvmSsnpmkoiVBXNbrhiuy07/29/2025 9:36 AM EDT Status post partial thyroidectomy T3, VKDBXKhuxbud19/29/2025 9:36 AM EDT Status post partial thyroidectomy T4 (THYROXINE), YULSHShhlapo28/29/2025 9:36 AM EDT Status post partial thyroidectomy from Last 3 Months Results * T3 (07/12/2025 9:36 AM EDT)ComponentValueRef RangeTest MethodAnalysis Time Performed AtPathologist SignatureTRIIODOTHYRONINE (T3) TOTAL0.910.87 - 1.78 ng/mL07/12/2025 11:01 AM [facility]FBelle[facility] CtrSpecimen (Source) Anatomical Location / LateralityCollection Method / VolumeCollection Time Received TimeOtherTopography unknown / Irjmwjf3107/12/2025 9:36 AM EDT07/12/2025 9:36 AM EDT Narrative Authorizing ProviderResult TypeResult StatusBenanthony Peterson DOLAB BLOOD ORDERABLESFinal ResultPerforming OrganizationAddressCity/State/ZIP CodePhone Number [facility] [address] [place] [address], [facility] [address] [place] [address] * TSH (07/12/2025 9:36 AM EDT)ComponentValueRef RangeTest MethodAnalysis Time Performed AtPathologist SignatureTHYROID STIMULATING HORMONE1.470.45 - 5.33 u[iU]/mL07/12/2025 10:54 AM [facility]trSpec[facility] (Source) Anatomical Location / LateralityCollection Method / VolumeCollection Time Received TimeOtherTopography unknown / Mmjhwky2307/12/2025 9:36 AM EDT07/12/2025 9:36 AM EDT Narrative Authorizing ProviderResult TypeResult StatusBenjamin W Murcek DOLAB BLOOD ORDERABLESFinal ResultPerforming OrganizationAddressCity/State/ZIP CodePhone Number [address] [address], [facility] [address] [place] [address] * T4 (07/12/2025 9:36 AM EDT)ComponentValueRef RangeTest MethodAnalysis Time Performed AtPathologist SignatureTHYROXINE (T4) TOTAL9.725.39 - 11.82 ug/dL 07/12/2025 10:57 AM [facility] CtrSpecimen (Source) Anatomical Location / LateralityCollection Method / VolumeCollection Time Received TimeOtherTopography unknown / Qhpqclq5207/12/2025 9:36 AM EDT07/12/2025 9:36 AM EDT Narrative Authorizing ProviderResult TypeResult StatusBenjamin W Murcek DOLAB BLOOD ORDERABLESFinal ResultPerforming OrganizationAddEncompass Health [facility]riety/State/ZIP CodePhone Number [facility] [address] [place] [address], [facility] [address] [place] [address] from Last 3 Months Insurance Care Teams Team MemberRelationshipSpecialtyStart DateEnd Mcihael Chávez MD PCP - [facility] Medicine02/07/24 Stalin Clarke MD [address] [place] [address] Referring PhysicianEndocrinolog10/27/24 Michele Peterson DO [address] [place] [address] Otolaryngolog10/27/24
--- OUTSIDE RECORDS SUMMARY | 2025-08-26 11:18 | XMS_ITS | Encounter Summary ---
Author Organization [facility] Address [address] [place] [address] Care Team Providers Care Arborer Name Role Phone Michael Chávez MD Primary Care Provider [phone] Stalin Clarke MD Unavailable Michele Peterson Irwin DO Unavailable [phone] Reason for Visit * ReasonCommentsMed Refill Encounter Details DateTypeDepartmentCare Team (Latest Contact Info)Lczcpyetalo75/04/2025Refill [facility] [address] [place] [address] Stalin Clarke MD [address] [place] [address] Christie's disease Social History Tobacco UseTypesPacks/DayYears UsedDateSmoking Tobacco: FormerCigarettes0.310 Smokeless Tobacco: Never Comments:use patches daily Alcohol UseStandard Drinks/WeekCommentsNot Currently0 (1 standard drink = 0.6 oz pure alcohol)SociallyCommentsUnknownSex and Gender InformationValueDate RecordedSex Assigned at KdwchSfqona30/25/2024 5:35 PM EDTLegal SexFemale 12/26/2022 6:51 PM EDTGender ToxguwvuOnzujg57/25/2024 5:35 PM EDTSexual XdkdavjyqkvJidpnkfx08/25/2024 5:35 PM EDTdocumented as of this encounter Miscellaneous Notes * Telephone Encounter - Karime Tucker LPN - 08/18/2025 9:35 AM EST MEDICATION SENT TO PHARMACY. 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
--- OUTSIDE RECORDS SUMMARY | 2025-08-26 11:18 | XMS_ITS | Encounter Summary ---
Author Organization [facility] Address [address], [address] [place] [address] Care Team Providers Care American Indian Policy Specialist Name Role Phone Michael Chávez MD Primary Care Provider [phone] Reason for Visit * ReasonCommentsMedication Refill Encounter Details DateTypeDepartmentCare Team (Latest Contact Info)Vajzckpfdea84/04/2025RefBet[facility] Part of [address] [place] [id number] Lizbet Griffin, DO [address] [place] [address] [address] [place], [place] [id number] Medication Refill Social History Tobacco UseTypesPacks/DayYears UsedDateSmoking Tobacco: FormerCigarettes0.310 07/14/2008 - 07/14/2018Smokeless Tobacco: Never Comments:Still on patches Alcohol UseStandard Drinks/WeekCommentsNo0 (1 standard drink = 0.6 oz pure alcohol)[facility] UtilitiesAnswerDate RecordedIn the past 12 months has the electric, gas, oil, or water company threatened to shut off services in your home?No 02/14/2025PHQ-2AnswerDate RecordedPHQ-9 Total Ofmgu833Hunger Vital Sign AnswerDate RecordedWithin the past 12 [...] you homeless or living in a senior living (including now)?No02/14/2025Food Insecurity AnswerDate RecordedWithin the past 12 months, you worried that your food would run out before you got the money to buymore.Within the past 12 months, the food you bought just didn't last and you didn't have money to get more.Interpersonal Safety Domain Source: IP Abuse ScreeningAnswerDate RecordedPhysical tdgniZwlbbz91/04/2025Verbal xbxizQfixwb32/04/2025Emotional fvsrlVmjcpt60/04/2025Financial dhzctGngani86/04/2025Sexual rlkhdRgsfan83/04/2025 CommentsNoSex and Gender InformationValueDate RecordedSex Assigned at AqzklXdytco74/16/2020 2:59 AM EDTLegal OdsDigldg84/10/2013 2:47 PM ESTGender IcoufrrhGryprs28/16/2020 2:59 AM EDTSexual EawpaprhnsbKtyymwfj16/16/2020 2:59 AM EDTdocumented as of this encounter Plan of Treatment DateTypeDepartmentCare Team (Latest Contact Info)Wcgiwnnbyyo35/02/2025 1:45 PM ESTOffice Visit [facility] Part of [address] [place] [address] Lizbet Griffin, DO [address] [place] [address] [address] [place] [address] yearlydocumented as of this encounter Visit Diagnoses Not on filedocumented in this encounter Care Teams Team MemberRelationshipSpecialtyStart DateEnd Date Michael Chávez MD [address] [place], [place] [id number] PCP - General10/22/13documented as of this encounter
--- OUTSIDE RECORDS SUMMARY | 2025-08-26 11:18 | XMS_ITS | Clinical Summary ---
Author Organization [facility] Address [address] [place] [address] Care Team Providers Care Engineer Geophysical [employer] Name Role Phone Steffi Bermudez CNP Unavailable Michael Chávez MD Primary Care Provider [phone] Allergies Active AllergyReactionsCriticalityNoted DateCommentsBeta-Blockers (Beta- Adrenergic Blocking Agts)PnccXkl3203/19/20198288XflaysibbBnevMpc41/16/2020Latex Anaphylaxis,Rash,Shortness of breath,QlklvzlmKmjj23/18/2014OndansetronHeadache Low11/16/2017 Migraines Medications MedicationSigDispense QuantityRefillsLast FilledStart DateEnd DateStatus amLODIPine (Norvasc) 5 mg tablet Take 1 tablet by mouth twice a day.4Active cholecalciferol, vitamin D3, 50 mcg (2,000 unit) capsule Take 1 capsule by mouth in the morning.Active fluticasone (Flonase) 50 mcg/actuation nasal spray 1 spray by Does not apply route in the morning.02/24/2020Active hydrOXYzine pamoate (Vistaril) 25 mg capsule Take by mouth.08/24/2020Active hyoscyamine 0.125 mg dissolvable tablet every 4 (four) hours if needed.07/25/2023ctive levothyroxine (Synthroid, Levoxyl) 137 mcg tablet Take 137 mcg by mouth in the morning.5Active loratadine 10 mg capsule Take 1 capsule by mouth in the morning.Active magnesium oxide (Mag-Ox) 400 mg (241.3 mg magnesium) tablet Take 1 tablet by mouth twice a day.08/20/2024ctive metFORMIN XR (Glucophage-XR) 500 mg 24 hr tablet Take 1,000 mg by mouth twice a day.4Active nicotine (Nicoderm CQ) 14 mg/[address] 1 patch on the skin in the morning.Active omeprazole (PriLOSEC) [address] capsule Take 1 capsule by mouth in the morning.Active oxaprozin (Daypro) 600 mg tablet Take 1,200 mg by mouth in the morning.Active M-Juno Plus 27 mg iron- 1 mg tablet 1 tablet at bedtime.12/18/2024tive QUEtiapine (SEROquel) 50 mg tablet Take 50 mg by mouth at bedtime.Active valACYclovir (Valtrex) 1 gram tablet if needed.05/15/2024ctive venlafaxine XR (Effexor-XR) 150 mg 24 hr capsule at bedtime.01/18/2025tive azelastine (Optivar) 0.05 % ophthalmic solution Administer 1 drop into affected eye(s) twice a day.5Active polyethylene glycol (Glycolax) 17 gram/dose powder Indications:Overflow diarrhea,Constipation by delayed colonic transitTake 238 g by mouth in 64 oz of water or sportsdrink for a one time bowel cleanse 238 g 5Active methylcellulose, laxative, (CitruceL Sugar Free) powder Indications:Overflow diarrhea,Constipation by delayed colonic transitMix 1 tablespoon in 8 oz (240 mL) of cold water. Take by mouth once daily. Increase frequency as needed up to 2 tablespoons 3 times daily. 907 g 1105Active metoclopramide (Reglan) 5 mg tablet Indications:GastroparesisTake 1 tablet (5 mg) by mouth if needed in the morning, at noon, in the evening, and at bedtime (gastroparesis). 360 tablet /6Active prochlorperazine (Compazine) 5 mg tablet Indications:Gastroparesis,NauseaTake 1 tablet (5 mg) by mouth every 6 (six) hours if needed for nausea or vomiting. 28 tablet 5Active promethazine (Phenergan) 25 mg tablet Indications:NauseaTake 1 tablet (25 mg) by mouth every 8 (eight) hours if needed for nausea or vomiting. 30 tablet Discontinued(Med List Cleanup) Active Problems ProblemNoted DateDiagnosed TrgsVhsbswoniqxes15/04/2025old sore06/29/2025ontact djxuvrvabi18/16/9423Pawpu01/16/2025Facial pain06/29/2025Iron deficiency anemia 06/29/2025Periapical qjeinzr7506/29/2025ute abdominal pain02/14/2025nemia 02/07/20244016Qksvweo43/26/0420Mpuomaw80/26/2024Endometrial thickening on ultrasound 02/07/20249295Qhtbbadupltmk00/26/2024Endometriosis of left fallopian tube02/07/2024 Christie's eahunes0502/07/2024High blood /26/2024NAFLD (nonalcoholic fatty liver disease)4Paratubal cyst02/07/2024CO (polycystic ovaries) 4Post-op pain02/07/2024Hypothyroidism due to Christie's thyroiditis 03/15/2022Uterine nashslwxb30/31/2020Gastro-esophageal reflux disease without qxxxgwxmhuz92/15/2020Hypothyroidism, luwoiykavsf93/15/2020Left lower quadrant pain11/20/2018 Encounters DateTypeDepartmentCare AvecBpkjqhoajzp72/12/2025Results Follow-Up [facility] Gastroenterology [address] [place] [address] [place] [address] MaleSteffi hampton CNP Basic metabolic panel, Magnesium, XR abdomen 1 view08/23/2025Telephone [facility] Gastroenterology [address] [place] [address] [place] [address] Rosalinda Alcala, RN Lmceemw4908/17/2025 5:15 PM ESTLab [facility] Outpatient Draw Station [address] [place] [address] Gastroparesis; Change in bowel kqsfjgqa05/04/2025 4:50 PM EST - 08/17/2025 11:59 PM ESTHospital Encounter [facility] X-Ray Imaging [address] [place] [address] Gastroparesis; Change in bowel movement Discharge Disposition: Home or Self Care (01)08/17/2025 3:00 PM ESTOffice Visit [address] [place] [address] Steffi Bermudez, SURAJ Gastroparesis (Primary Dx); Change in bowel movement; Uggwvu0507/07/2025Orders Only [address] [place] [address] Steffi Bermudez, SURAJ Metabolic dysfunction-associated steatohepatitis (MASH) (Primary Dx); Ykeqfpzuayvoz52/22/2025Results Follow-Up [address] [place] [address] Steffi Bermudez, SURAJ XR abdomen 1 view07/05/2025Results Follow-Up [address] [place] [address] Steffi Bermudez, SURAJ NM gastric emptying solid07/05/2025Orders Only [address] [place] [address] Provider, MD Nancy 07/05/2025Telephone [address] [place] [address] Annamarie Blunt MA 07/01/2025Telephone [address] [place] [address] Rosalinda Alcala, FAINA dxksofkwtozfw90/17/2025Orders Only [address] [place] [address] Provider, MD Nancy 06/29/2025 3:45 PM EDT - 06/29/2025 11:59 PM EDTHospital Encounter [facility] X-Ray Imaging [address] [place] [address] [place] [address] Nausea; Weight loss; Chronic abdominal pain Discharge Disposition: Home or Self Care (01)06/29/2025 3:00 PM EDTOffice Visit [facility] [address] [place] [address] [place] [address] Malenfstephanie, Steffi Emanuel CNP Nausea (Primary Dx); Weight loss; Chronic abdominal painfrom Last 3 Months Immunizations ImmunizationAdministration DatesNext DueInfluenza, Aewnwmppieb20/02/2018 Influenza, injectable, quadrivalent, preservative free08/11/2023,07/01/2018, 08/09/2016Influenza, recombinant, quadrivalent, injectable, preservative free 07/19/2022,06/30/2021,07/30/2020,07/31/2019Influenza, seasonal, injectable 07/15/2018Influenza, seasonal, injectable, preservative free, 6 moonths & older 07/27/2024,07/26/2015Pneumococcal Polysaccharide QWI126207/01/2018Tdap03/22/2022 Family History Medical HistoryRelationNameCommentsEsophageal cancerMaternal GrandfatherRay Stomach cancerMaternal GrandfatherRayAlcohol abusePaternal GrandfatherRichard Colon polypsPaternal GrandfatherRichardHeart attackPaternal GrandfatherRichard HypertensionPaternal GrandfatherRichardRelationNameStatusCommentsMaternal GrandfatherRayAlivePaternal GrandfatherRichardAlive Social History Tobacco UseTypesPacks/DayYears UsedDateSmoking Tobacco: FormerCigarettes0.310 Smokeless Tobacco: Never Tobacco Cessation:Counseling Given: Not Answered Alcohol UseStandard Drinks/WeekCommentsNot Currently0 (1 standard drink = 0.6 oz pure alcohol)Humiliation, Afraid, Rape, and Kick questionnaireAnswerDate RecordedWithin the last year, have you been afraid of your partner or ex-partner?No08/17/2025Within the last year, have you been humiliated or emotionally abused in other ways by your partner or ex-partner?No08/17/2025 Within the last year, have you been kicked, hit, slapped, or otherwise physically hurt by your partner or ex-partner?No08/17/2025Within the last year, have you been raped or forced to have any kind of sexual activity by your part ner or ex-partner?No08/17/2025PHQ-2AnswerDate RecordedPatient Health Questionnaire-2 Nfdta49610/17/2024CommentsNoSex and Gender Information ValueDate RecordedSex Assigned at QmnmbCoeiis47/24/2025 2:19 PM EDTLegal Sex Ullcgu3511/26/2024 3:28 PM ESTGender GxgjfoonNueucl46/24/2025 2:19 PM EDTSexual OrientationHeterosexual or Vyjntzbz13/24/2025 2:19 PM EDT Last Filed Vital Signs Vital SignReadingTime TakenCommentsBlood Mfofanhh301/9608/17/2025 2:45 PM EST Mpvfz685608/17/2025 2:45 PM AKSIncopuffwfc77.4 ??C (97.5 ??F)02/11/2025 2:50 PM EDTRespiratory Eyej125402/11/2025 2:50 PM EDTOxygen Zjztmrdjvw03%02/11/2025 2:50 PM EDTInhaled Oxygen Concentration--Iloxwr57.1 kg (203 lb)08/17/2025 2:45 PM EST Luhdof245.1 cm (5' 5 )08/17/2025 2:45 PM ESTBody Mass Index33.7808/17/2025 2:45 PM EST Plan of Treatment DateTypeDepartmentCare Team (Latest Contact Info)Dnstwkuygjd09/24/2026 3:00 PM ESTOffice Visit [facility] [address] [place] [address] Malenfant, Steffi Emanuel, HAZARD MITIGATION OFFICER [address] [place] [address] Health MaintenanceDue DateLast DoneCommentsVaricella Vaccines (1 of 2 - 13+ 2- dose series)2002Hepatitis B Vaccines (1 of 3 - 19+ 3-dose series) 2008HPV Vaccines (1 - 3-dose SCDM series)2016COVID-19 Vaccine ( - 2024- season)2025Pap Smear511/2Depression Screening 611/ervical Cancer Kplmuxtsg05/15/2027HPV/Txlber0708/28/2027 08/28/2022dult Bxkxhlj56/06/2022Zoster Vaccines (1 of 2)2039 Pneumococcal Vaccine: Pediatrics (0 to 5 Years) and At-Risk Patients (6 to 64 Years)Aged Out07/01/2018No longer eligible based on patient's age to complete this topicInfluenza HxtrdysTnbchbpmd95/15/2025, 07/27/2024, 08/11/2023, Additional history existsHIB VaccinesAged OutNo longer eligible based on patient's age to complete this topicIPV VaccinesAged OutNo longer eligible based on patient's age to complete this topicMeningococcal B VaccineAged OutNo longer eligible based on patient's age to complete this topicMeningococcal VaccineAged OutNo longer eligible based on patient's age to complete this topicRotavirus VaccinesAged OutNo longer eligible based on patient's age to complete this topic Procedures Procedure NamePriorityDate/TimeAssociated DiagnosisCommentsXR ABDOMEN 1 VIEW Btgyyjq0508/17/2025 5:32 PM EST Gastroparesis Change in bowel movement BGZYLBISFUllcfcc66/04/2025 4:54 PM EST Gastroparesis Change in bowel movement BASIC METABOLIC CXRKZDpcmpvf55/04/2025 4:54 PM EST Gastroparesis Change in bowel movement NM GASTRIC EMPTYING SAMJOQtnqouc35/22/2025 7:21 AM EDT FECAL FAT, KXMVUTRHUWLOffuqce85/17/2025 7:04 AM EDTPANCREATIC ELASTASE, FECAL Ghwqdht4406/30/2025 7:04 AM EDTXR ABDOMEN 1 RPDRZiwglas34/16/2025 4:12 PM EDT Nausea Weight loss Chronic abdominal pain from Last 3 Months Results * XR abdomen 1 view (08/17/2025 5:32 PM EST) Only the most recent of2 resultswithin the time period is included. Anatomical RegionLateralityModalityAbdomenComputed RadiographySpecimen (Source) Anatomical Location / LateralityCollection Method / VolumeCollection Time Received Time08/18/2025 7:02 AM EST Impressions 08/18/2025 7:02 [...] AtPathologist SignatureMagnesium1.6(L)1.9 - 2.7 mg/dL08/17/2025 5:35 PM [facility] ([facility])Specimen (Source) Anatomical Location / LateralityCollection Method / VolumeCollection Time Received TimeBloodVenous blood specimen / UnknownVenipuncture / Unknown 08/17/2025 4:54 PM EST08/17/2025 5:12 PM EST Narrative Authorizing ProviderResult TypeResult StatusJacqueline E Malenfant CNPLAB BLOOD ORDERABLESFinal ResultPerforming OrganizationAddressCity/State/ZIP CodePhone Number [facility] ([facility]) [address] [place] [address] * Basic metabolic panel (08/17/2025 4:54 PM EST)ComponentValueRef RangeTest MethodAnalysis TimePerformed AtPathologist KtfmvksttHiogqt379490 - 145 mmol/L 08/17/2025 5:35 PM [facility])Potassium3.53.5 - 5.1 mmol/L 08/17/2025 5:35 PM [facility] ([facility])Zslqaxcl93231 - 107 mmol/L 08/17/2025 5:35 PM [facility] ([facility])PH89060 - 31 mmol/L110/17/2024 5:35 PM [facility] ([facility])BUN97 - 25 mg/dL08/17/2025 5:35 PM [facility] ([facility])Creatinine0.660.60 - 1.20 mg/dL08/17/2025 5:35 PM [facility] ([facility])Wxgdzjp3078 - 100 mg/dL08/17/2025 5:35 PM [facility] ([facility])Calcium9.58.6 - 10.3 mg/dL08/17/2025 5:35 PM [facility] ([facility])Anion Mvy158 - 20 mmol/L110/17/2024 5:35 PM [facility])oAEG103.5>60.0 mL/min/1.73m* 5:35 PM [facility] ([facility])Comment:[facility]???s estimated glomerular filtration rate (eGFR) will no [...] group of ind ividuals.BUN/Creatinine Ratio13.6110/17/2024 5:35 PM [facility] ([facility])Specimen (Source)Anatomical Location / LateralityCollection Method / VolumeCollection TimeReceived TimeBloodVenous blood specimen / Unknown Venipuncture / Jnrzfcp2008/17/2025 4:54 PM EST08/17/2025 5:12 PM EST Narrative Authorizing ProviderResult TypeResult StatusJacqueline E Malenfant CNPLAB BLOOD ORDERABLESFinal ResultPerforming OrganizationAddressCity/State/ZIP CodePhone Number [facility] ([facility] [address] [place] [address] * NM gastric emptying solid (07/05/2025 7:21 AM EDT)Anatomical RegionLaterality ModalityBodyNuclear Medicine Narrative Authorizing ProviderResult TypeResult StatusHistorical Provider MDIMG NM PROCEDURESFinal Result * Pancreatic elastase, fecal (06/30/2025 7:04 AM EDT)Specimen (Source)Anatomical Location / LateralityCollection Method / VolumeCollection TimeReceived Time StoolRectal contents / Unknown Narrative Authorizing ProviderResult TypeResult StatusHistorical Provider MDLAB BODY FLUIDS AND STOOLS ORDERABLESFinal Result * Fecal fat, qualitative (06/30/2025 7:04 AM EDT)Specimen (Source)Anatomical Location / LateralityCollection Method / VolumeCollection TimeReceived Time StoolRectal contents / Unknown Narrative Authorizing ProviderResult TypeResult StatusHistorical Provider MDLAB BODY FLUIDS AND STOOLS ORDERABLESFinal Result from Last 3 Months Insurance Care Teams Team MemberRelationshipSpecialtyStart DateEnd Michael Chávez MD [address] [facility] [place] [address] PCP - GeneralFamily Medicine02/11/25 Steffi Bermudez, HAZARD MITIGATION OFFICER [address] [place] [address] Gastroenterology01/20/25
--- OUTSIDE RECORDS SUMMARY | 2025-08-26 11:18 | XMS_ITS | Clinical Summary ---
Author Organization [facility] Address [address] [place] [address] Care Team Providers Care Market Investigator Name Role Phone Pinky Orozco CNP Primary Care Provider + Allergies Active AllergyReactionsCriticalityNoted DateCommentsBeta-Blockers (Beta- Adrenergic Blocking Agts)Rash,Other: See NzyaxlhpJon01/06/2019DiltiazemRash 03/29/2020LatexAnaphylaxis,Rash,Shortness of Breath,TajevtceKhpk30/18/2014 OndansetronOther: See IdglbaneGgh42/03/2018 Migraines Medications MedicationSigDispense QuantityRefillsLast FilledStart DateEnd DateStatus amLODIPine (NORVASC) 5 mg tablet Take 1 tablet by mouth two times a day.4Active Cholecalciferol, Vitamin D3, 50 mcg (2,000 unit) cap Take 1 capsule by mouth once daily.Active fluticasone (FLONASE) 50 mcg/actuation nasal spray Use 1 Lead in each nostril once daily.Active hydrOXYzine pamoate (VISTARIL) 25 mg capsule Take by mouth as needed.08/24/2020Active levothyroxine (SYNTHROID) 137 mcg tablet Take 137 mcg by mouth once daily.5Active loratadine 10 mg cap Take 1 capsule by mouth once daily.Active magnesium oxide (MAG-OX) 400 mg (241.3 mg magnesium) tablet Take 1 tablet by mouth two times a day.4Active metFORMIN ER (GLUCOPHAGE XR) 500 mg 24 hr tablet Take 1,000 mg by mouth two times a day.4Active nicotine (NICODERM) 14 mg/24 hr Apply 1 Patch as directed every 24 hours.Active omeprazole (PRILOSEC) 40 mg capsule Take 1 capsule by mouth once daily.Active oxaprozin (DAYPRO) 600 mg tablet Take 600 mg by mouth once daily.Active M-ROBBIN PLUS 27 mg iron- 1 mg 1 tablet.5Active QUEtiapine (SEROQUEL) 50 mg tablet Take 50 mg by mouth daily at bedtime.Active venlafaxine ER (EFFEXOR XR) 75 mg 24 hr capsule 150 mg.08/24/2020Active Azelastine HCl (OPTIVAR) 0.05 % ophthalmic solution Use 1 drop in both eyes two times a day. 18 mL ctive Active Problems No known active problems Encounters DateTypeDepartmentCare OcrbAchiqvezsoy34/07/2025 2:30 PM EDTOffice Visit [facility] [address] [phone] Aden Covington II, OD Ocular hypertension, bilateral (Primary Dx); Allergic conjunctivitis of both eyes07/20/2025Travelfrom Last 3 Months Family History Medical HistoryRelationCommentsotherMotherRelationStatusCommentsMother Social History Tobacco UseTypesPacks/DayYears UsedDateSmoking Tobacco: FormerCigarettes Smokeless Tobacco: Never Tobacco Cessation:Counseling Given: Not Answered Area Deprivation IndexAnswerDate RecordedNational Score (1-100), lower number is lower dvuv287707/20/2025State Score (1-10), lower number is lower crjx085 Data from: https://www.neighborhoodatlas.medicine.[facility].edu/. Last address used for trvwilfmvgo[address]07/20/2025CommentsUnknownSex and Gender InformationValueDate RecordedSex Assigned at GmclrAegatm66/31/2025 2:23 PM EDT Legal TgaFjqkak04/07/2025 8:13 AM ESTGender PjrmhnelRhaoav42/31/2025 2:22 PM EDT Sexual EjtvvjcowcpWfisyise03/31/2025 2:22 PM EDT Plan of Treatment DateTypeDepartmentCare Team (Latest Contact Info)Ppzcgrbixbt25/03/2026 2:00 PM EDTOffice Visit [facility] [address] [place], [place] [phone] Aden Covington II, OD [address] [place] [address] Diagnostics, [facility] [address] [phone] [facility] Ex[facility] [place] [facility] OnlyHealth MaintenanceDue DateLast DoneComments Anxiety Hrapdtpxx51/05/2007Depression Svsiqrzke81/05/2007HIV Axhftalub75/05/2007 Hepatitis B Vaccine (1 of 3 - 19+ 3-dose series)2008Cervical Cancer Uvppgsqov33/05/2010HPV Vaccine (1 - 3-dose SCDM series)2016Covid-19 Vaccine (2024- season)2025Influenza Vaccine (#1)2025 07/27/2024, 08/11/2023, 07/19/2022, Additional history existsDTaP,Tdap,Td Vaccine (2 - Td or Tdap)Hepatitis C ScreeningCompleted 04/06/2025 Insurance Care Teams Team MemberRelationshipSpecialtyStart DateEnd Date Pinky Orozco, CRAPS MANAGER [address] [place] [address] PCP - GeneralInternal Medicine12/18/24
--- OUTSIDE RECORDS SUMMARY | 2025-08-26 11:18 | XMS_ITS | Patient Health Record ---
Author Organization [facility] in [place] Address [address] [place] [address] Care Team Providers Care Sonogram Technician Name Role Phone SUZE CHÁVEZ MD Primary Care Provider Suze Chávez Unavailable [phone] Allergies Allergen (clinical drug ingredient) Drug/Non Drug Allergy documented on EMR Reaction Allergy Type Onset Date Status ZofranheadacheDrug AllergyActiveLatexLatexunknownAllergyActive Results Component Value Reference Range Notes US APPENDIX Reviewed date:03/14/2025 04:24:24 PM Interpretation: Performing Lab: Notes/Report: Source Facility: [place] [address] Ultrasound Report Signed Patient: KRISTEN LEWIS MR#: [id number] : 1990 Acct:[id number] Age/Sex: 34 / F ADM Date: 03/12/25 Loc: US Attending Dr: Carson Chávez M.D. Ordering Physician: Carson Chávez M.D. Date of Service: 03/12/25 Procedure(s): US appendix Accession Number(s): [id number] cc: Carson Chávez M.D. [place] [id number] Patient Name: KRISTEN LEWIS MRN: [id number] date: 1990 Sex: F Assigned Patient Location: US Current Patient Location: US Accession/Order Number: [id number] Exam Date: 03/12/2025 17:00 Report Date: 03/12/2025 [...] Scott M.D. 03/12/2025 5:04 PM Dictation Location: [place] [address] Electronically authenticated by: [id number] Y Date: 03/12/2025 17:04 Dictated By: Florentino Scott M.D. Signed By: 03/12/251706 DD/ 03 TD/TT: Asphalt [employer]er: CBC AND AUTO DIFF * Reviewed date:09/23/2024 07:45:02 PM Interpretation: Performing Lab:[facility], [facility] [address] [place] [address] PH:[phone] Notes/Report: WBC Count 5.8 3.5-11.0 k/uL RBC Count4.734.00-5.20 m/hBBgjrnwzdco64.712.0-16.0 g/dAZkkzstisal78.636.0-46.0 % MCV79.580.0-100.0 fLMCH29.026.0-34.0 ssLSKY22.431.0-37.0 g/dLRDW12.912.1-15.2 % Platelet Vxqrs672040-539 k/uLMPV9.66.0-12.0 fLNeutrophil (Seg)6347-75 % Qaidcyznvp5872-53 %Skmudwyj48-7 %Yurgtjzmuz36-8 %Oybhtmkt39-5 %Immature Qcwsoyqpkrx56-1 %Abs.Neutrophil (Seg)3.622.5-7.0 k/uLAbs. Lymph1.611.00-4.80 k/uLAbs. Monocyte0.420.00-1.00 k/uLAbs. Eosinophil0.130.00-0.40 k/uLAbs. Basophil0.020.00-0.20 k/uLAbs.Imm.Granulocyte0.010.00-0.30 k/uLCOMPREHENSIVE METABOLIC PANEL Reviewed date:09/23/2024 07:45:02 PM Interpretation: Performing Lab:[facility], [address] [place] [address] PH:[phone] Notes/Report:NA (Sodium)430403-375 mmol/LK (Potassium)3.83.7-5.3 mmol/LChloride 69998-196 mmol/CYI05597-12 mmol/LAnion Lbc769-38 mmol/UBmjhdxt86404-93 mg/dLBUN (Urea N)116-20 mg/dLCreatinine0.60.5-0.9 mg/dLeGFR>90>60 mL/min/1.73m2 The CKD-EPI equation is less accurate in patients with extremes of muscle mass, Careful clinical correlation is recommended, particularly when comparing to extra-renal metabolism of creatine, excessive creatine ingestion, or following eGFR results are calculated without a race factor using the 2020 CKD-EPI equation. These results are not intended for use in patients <18 years of age. results calculated using previous equations. therapy that affects renal tubular secretion. BUN/CRE Xrmwj785-06Qagtlxj2.88.6-10.4 mg/dLProtein, Total7.46.4-8.3 g/dLAlbumin 4.73.5-5.2 g/dLBilirubin, Total0.30.3-1.2 mg/dLAlkaline Qemg0019-927 U/JVNA393- 33 U/LAST38<32 U/LFREE T3 Reviewed date:09/23/2024 07:45:02 PM Interpretation: Performing Lab:[facility], [address] [place] [address] PH:[phone] Notes/Report:T3, Free3.302.00-4.40 pg/mLTSH Reviewed date:09/23/2024 07:45:02 PM Interpretation: Performing Lab:[facility], [address] [facility] [place] [address] PH:[phone] Notes/Report:Thyroid Stim. Horm.0.860.30-5.00 uIU/mLT4 Reviewed date:11/28/2024 02:05:17 PM Interpretation: Performing Lab:[facility], [address] [place] [address] PH:[phone] Notes/Report:Thyroxine T410.24.5-11.7 ug/dLCBC AND AUTO DIFF * Reviewed date:11/28/2024 02:05:17 PM Interpretation: Performing Lab:[facility], [address] [place] [address] PH:[phone] Notes/Report:WBC Count5.63.5-11.0 k/uLRBC Count5.054.00-5.20 m/gQOwfhixvvtr01.2 12.0-16.0 g/hAPiyowtjjio52.236.0-46.0 %MCV79.680.0-100.0 fLMCH28.126.0-34.0 pg MCHC35.331.0-37.0 g/dLRDW12.712.1-15.2 %Platelet Cdsgr067091-633 k/uLMPV9.66.0- 12.0 fLNeutrophil (Seg)6247-75 %Zotjejxrwz0239-49 %Rnjjmvif18-0 %Bzwrifsvxw23-4 %Rwvvcnwz97-5 %Immature Pkpcfbnnlfi11-0 %Abs.Neutrophil (Seg)3.422.5-7.0 k/uL Abs. Lymph1.671.00-4.80 k/uLAbs. Monocyte0.360.00-1.00 k/uLAbs. Eosinophil0.11 0.00-0.40 k/uLAbs. Basophil0.020.00-0.20 k/uLAbs.Imm.Granulocyte0.010.00-0.30 k/uLFREE T3 Reviewed date:11/28/2024 02:05:17 PM Interpretation: Performing Lab:[facility], [address] [place] [address] PH:[phone] Notes/Report:T3, Free3.272.00-4.40 pg/mLIRON Reviewed date:11/28/2024 02:05:17 PM Interpretation: Performing Lab:[facility], [address] [place] [address] PH:[phone] Notes/Report:Wgeu4066-721 ug/dLFERRITIN Reviewed date:11/28/2024 02:05:17 PM Interpretation: Performing Lab:[facility], [address] [place] [address] PH:[phone] Notes/Report:Nngqhipp0103-437 ng/mL FERRITIN Reference Ranges: Adults greater than 60 years: no established reference range Adult Males 20 - 60 years: 30 - 400 ng/mL Pediatrics: no established reference range Adult females 17 - 60 years: 13 - 150 ng/mL AFFRAN Reviewed date:06/27/2025 01:21:09 PM Interpretation: Performing Lab: Notes/Report:Fecal Neutral FatNormalNormalFecal Split FatNormalNormal CLIA Number: [id number] (NOTE) suggests [place] [address] Sales Representative Graphic Art: Yuriy Cardenas MD, PhD [address] [place] [address] Neutral fats include the monoglycerides, diglycerides, and that are liberated from them. Impaired synthesis or Performed By: Setup triglycerides while split fats are the free fatty acids increase in neutral fats while an increase in split fats INTERPRETIVE INFORMATION: Fecal Fat Qualitative secretion of pancreatic enzymes or bile may cause an TEST PERFORMED BY [facility] [address], [place] [address] TSH Reviewed date:11/28/2024 02:05:17 PM Interpretation: Performing Lab:[facility], [address] [place] [address] PH:[phone] Notes/Report:Thyroid Stim. Horm.1.030.27-4.20 uIU/mLSurgical Pathology ([facility]) Reviewed date:11/28/2024 02:05:17 PM Interpretation: Performing Lab: Notes/Report: [address] [place] [id number] Path Number: [id number] Source of Specimen Interpretation Performed at [facility] [address] SURGICAL PATHOLOGY CONSULTATION Processing Lab: [place] [address] [facility], Microscopic examination performed. Sections show polypoid skin with a Operative Findings: RIGHT LABIA MINORA Electronically Signed Out Microscopic Description Pre-Op Diagnosis: LABIAL SKIN TAG Pavan Davis M.D. [facility] positive for Melan triple stain and S100 immunostains, [place] [address] collection of spindled type cells with light wavy pink cytoplasm that mj x 0.3 cm oro papule. Inked intact 1cs. tm kristel/11/05/2024 -Benign polypoid neurotized nevus. Gross Description -- Diagnosis -- ANATOMIC PATHOLOGY Med Rec: [id number]: RIGHT LABIA MINORA SKIN TAG CONSULTING PATHOLOGISTS [facility] [place] KRISTEN LEWIS, LABIAL SKIN TAG Received in formalin is a 0.3 x 0.3 Iris Girard/mj:11/04/2024 Right labia skin, biopsy: neurotized nevus. Controls react as expected. Clinical Information Patient Name: [place] [address] LIPID PANEL Reviewed date:09/23/2024 07:45:02 PM Interpretation: Performing Lab:[facility], [address] [place] [address] PH:[phone] Notes/Report:Avrviuohmge3852-801 mg/dL 200-240 Borderline <200 Desirable Cholesterol Guidelines: >240 Undesirable Cholesterol,HDL33>40 mg/dL HDL Guidelines: 40-59 Borderline <40 Undesirable >59 Desirable Cholesterol,ZXD049-321 mg/dL Direct (measured) LDL and calculated LDL are not interchangeable tests. 130-159 Borderline LDL Guidelines: 100-129 Near to/above Desirable <100 Desirable >159 Undesirable Chol/HDL Ratio3.4Yazglncsimmmi973<150 mg/dL Based on AHA Guidelines for fasting triglyceride, July 2012. 150-199 Borderline >499 Very high <150 Desirable 200-499 High Triglyceride Guidelines: Cholesterol,OODX508-70 mg/dLINSULIN Reviewed date:09/23/2024 07:45:02 PM Interpretation: Performing Lab:[facility], [address] [place] [address] PH:[phone] Notes/Report:Collection Info.5064Tpixsei93.5Reference Range Fastin.6-24.9 120 min: 22-79 30 min: 20-112 90 min: 26-84 60 min: 29-88 IRON Reviewed date:09/23/2024 07:45:02 PM Interpretation: Performing Lab:[facility], [address] [place] [address] PH:[phone] Notes/Report:Ngtm8900-065 ug/dLHGB A1C (GLYCO-HGB) Reviewed date:09/23/2024 07:45:02 PM Interpretation: Performing Lab:[facility], [address] [place] [address] PH:[phone] Notes/Report:Hemoglobin A1C4.54.0-6.0 %Estimated Ave Gluc82 The ADA and AACC recommend providing the estimated average glucose result topermit better patient understanding of their HBA1c result.T4 Reviewed date:09/23/2024 07:45:02 PM Interpretation: Performing Lab:[facility], [address] [place] [address] PH:[phone] Notes/Report:Thyroxine T410.94.5-11.7 ug/dLAPEF Reviewed date:06/30/2025 12:32:34 PM Interpretation: Performing Lab: Notes/Report:Pancreatic Elastase>800>=100 ug/g Performed By: [place] [address] Sales Representative Graphic Art: Yuriy Cardenas MD, PhD CLIA Number: [id number] TEST PERFORMED BY [facility] [address], [place] [address] 200 ug/g or greater...........Normal REFERENCE INTERVAL: Pancreatic Elastase Fecal by 100 - 199 ug/g................Moderate insufficiency (NOTE) INTERPRETIVE INFORMATION: Pancreatic Elastase Fecal by Immunoassay Immunoassay Reference intervals do not apply for infants less than one month Less than 100 ug/g............Severe insufficiency old. [facility] UA Micro, reflex to culture Reviewed date:03/15/2025 08:56:40 PM Interpretation: Performing Lab: Notes/Report: [facility] ,Color UrineDK. YELLOWYELLOWClarity UrineCLEARCLEARSpecific [place] Urine1.010 1.005-1.025pH Urine5.55.0-9.0Protein Xyvpo02JZX/TRACE mg/dLGlucose Urine UA NEGATIVENEGATIVE mg/dLBilirubin UrineNEGATIVENEGATIVEKetones UrineTRACENEGATIVE mg/dLBlood UrineNEGATIVENEGATIVENitrite UrineNEGATIVENEGATIVEUrobilinogen Urine 0.20.2-1.0 EU/dLLeukocyte Esterase UrineNEGATIVENEGATIVEWBC Urine0-2NONE SEEN #/HPFRBC UrineNONE SEEN0-2 #/HPFBacteria UrineNONE SEENNONE SEEN #/HPFMucus UrineNONE SEENNONE SEENSquamous Epithelial Cell UrineFEWNONE/RARE #/LPFCrystals Seen?None SeenNone Seen #/HPFCast Seen?SEENNONE SEEN #/LPFHyaline Casts Urine RAREUrine Culture IndicatedNOPerforming Lab:see noteML - [facility] LBHCG Qualitative* Reviewed date:03/15/2025 08:56:40 PM Interpretation: Performing Lab: Notes/Report: [facility] ,HCG QualitativeNEGATIVENEGATIVEPerforming Lab:see [facility] LBPROF 14(COMP METB) Reviewed date:03/15/2025 08:56:40 PM Interpretation: Performing Lab: Notes/Report: [facility] ,Fqdryc443716-252 mmol/LPotassium3.03.5-5.1 mmol/RUstralbk90478-818 mmol/LCarbon Satcdli76.221.0-32.0 mmol/LAnion Gap18.2Jbpevka95800-380 mg/dLBlood Urea Gfostckj64.07.0-18.0 mg/dLCreatinine0.960.55-1.02 mg/dLEstimated GFR ( Evie>60>=60 mL/min/1.73m 2Estimated GFR (Non- Soraya>60>=60 mL/min/1.73m 2BUN Creatinine Ratio16.8Nfylugd1.98.5-10.1 mg/dLBilirubin Total0.50.2-1.0 mg/dL Aspartate Amino Nckdevjzyrl7655-87 U/LAlanine Xhtmddimqqmxbgdw7367-72 U/L Alkaline Stxevxcgqsa4588-250 U/LTotal Protein8.36.4-8.2 g/dLAlbumin Level4.53.4- 5.0 g/dLGlobulin3.8Albumin Globulin Ratio1.2Performing Lab:see noteML - [facility] LBLIPASE Reviewed date:03/15/2025 08:56:40 PM Interpretation: Performing Lab: Notes/Report: [facility] ,Bruyty65.016.0-77.0 U/LPerforming Lab:see noteML - [facility] LB LACTATE or LACTIC ACID Reviewed date:03/15/2025 08:56:40 PM Interpretation: Performing Lab: Notes/Report: [facility] ,Lactate/Lactic Acid1.80.4-2.0 mmol/LPerforming Lab:see noteML - [facility] LBCBC AUTO DIFF Reviewed date:03/15/2025 08:56:40 PM Interpretation: Performing Lab: Notes/Report: [facility] ,White Blood Count9.44.0-11.0 10 3/uLRed Blood Count5.084.20-5.40 10 6/uL Mojbcaywxc31.812.0-16.0 g/wAMkfgnwsyct07.636.0-48.0 %Mean Corpuscular Xusztv49.0 81.0-99.0 fLMean Corpuscular Uaagjtqtol66.226.7-34.0 pgMean Corpuscular HGB Conc 34.829.9-35.2 g/dLRed Cell Distribution Width13.111.0-15.0 %Platelet Vvtge548 150-450 10 3/uLMean Platelet Ubizgs76.69.5-13.5 fLNeutrophils Percent Auto64.9 43.0-75.0 %Lymphocytes Percent Auto25.120.5-60.0 %Monocytes Percent Auto8.41.7- 12.0 %Eosinophils Percent Auto1.00.9-7.0 %Basophils Percent Auto0.40.2-2.0 % Immature Granulocytes Pct Auto0.20.0-0.5 %Neutrophils Absolute Auto6.11.4-6.5 10 3/uLLymphocytes Absolute Auto2.41.2-3.8 10 3/uLMonocytes Absolute Auto0.80.3-0.8 10 3/uLEosinophils Absolute Auto0.10.0-0.7 10 3/uLBasophils Absolute Auto0.00.0- 0.1 10 3/uLImmature Granulocytes Abs Auto0.020.00-0.03 10 3/uLPerforming Lab:see noteML - [facility] LB Reason For Referral Reason +FH colon cancerl - Hx Polyps Diagnosis 1 Well adult (Z00.00) Referral Organization [facility] Referring Provider First Name Suze Referring Provider Last Name Kyler Referring Provider [facility] Referred Provider Ruslan Li Referred Provider Specialty General Surg rc Referral Priority Routine Reason FH of colon cancer, personal history of polyp Diagnosis 1 Colon polyp (K63.5) Referral Organization [facility] Referring Provider First Name Suze Referring Provider Last Name Kyler [facility] Pete Frances Referred Provider Specialty Surgery Referral Priority Routine Reason colonoscopy Diagnosis 1 Colon polyp (K63.5) Referral Organization [facility] Referring Provider First Name Suze Referring Provider Last Name Kyler Ref[facility] Referred Provider Pete Frances Referred Provider Specialty Surgery Referral Priority Routine Diagnosis 1 Colon polyp (K63.5) Referral Organization [facility] Referring Provider First Name Suze Referring Provider Last Name Kyler [facility] Referred Provider Specialty Gastroentero logy Referral Priority Routine Diagnosis 1 Gastroparesis (K31.8 4) Referral Organization [facility] Referring Provider First Name Suze Referring Provider Last Name Kyler Referring Provider [facility] Referred Provider TB, Program Consultant Referred Provider Specialty Dietitian Referral Priority Routine Medications Medication SIG (Take, Route, Frequency, Duration) Notes Start Date End Date Status Levothyroxine Sodium 137 MCG 1 tablet in the morning on an empty stomach Orally Once a day ActivehydrOXYzine Pamoate 25 MGTAKE 1 CAPSULE BY MOUTH FOUR TIMES DAILY NEEDED; Duration: 30 daysActiveVitamin D 50 MCG (1999 UT)TAKE 1 TABLET BY MOUTH ONCE DAILY; Duration: 30ActiveFluticasone Propionate 50 MCG/ACTUSE 1 SPRAY IN EACH NOSTRIL ONCE DAILY; Duration: 60ActiveVenlafaxine HCl ER 150 MGTAKE 1 CAPSULE BY MOUTH DAILY WITH FOOD; Duration: 30 daysActiveDaypro 600 MG2 tabs Orally every morning; Duration: ctiveSEROquel 50 MG1 tablet at bedtime Orally Once a day; Duration: 30 days11/14/2023ctiveEnsure Plus -240 ml Orally daily; Duration: 30 days08/26/2025tiveMetoclopramide HCl 5 MGOral; Duration: 90 DaysActivemetFORMIN HCl ER 500 MG2 tablets Orally BIDActive Loratadine 10 MGTAKE 1 TABLET BY MOUTH ONCE DAILY; Duration: 30ActiveamLODIPine Besylate 5 MG1 tablet Orally Twice Daily; Duration: 30 days10/29/2023ctive Prochlorperazine Maleate 5 MGOral; Duration: 7 DaysActivePrenatal (w/Iron & FA) 27-0.8 MG1 tablet Orally Once a dayActiveOmeprazole 40 MGTAKE 1 CAPSULE BY MOUTH ONCE DAILY 30 MINUTES BEFORE MORNING MEAL; Duration: 30ActiveNicotine 14 MG/24HR APPLY 1 PATCH TO THE SKIN DAILY; Duration: 30 daysActivePromethazine HCl 25 MG1 tablet as needed Orally q6h prn; Duration: 10 03/12/2025tive Social History Tobacco Use: Social History Observation Description Date Details (start date - stop date) Former Smoker 10/14/2007 - 10/14/2022 Tobacco Use/Smoking Question Answer Notes Patient is a former smoker When did you start smoking?10/14/2007When did you stop smoking?10/14/2022lcohol Screen (Audit-C) Question Answer Notes Did you have a drink containing alcohol in the p ast year? Yes How often did you have 6 or more drinks on one occasion in the past year?Never (0 point)How many drinks did you have on a typical day when you were drinking in the past year?1 or 2 drinks (0 point)How often did you have a drink containing alcohol in the past year?Monthly (2 points)Bakqta3KjhwoubljepqteXabeyvisKIRJJ-X (Standard) Question Answer Notes Did you have a drink containing alcohol in the p ast year? Yes How often did you have six or more drinks on one occasion in the past year?Never (0 point)How many drinks did you have on a typical day when you were drinking in the past year?1 or 2 drinks (0 point)How often did you have a drink containing alcohol in the past year?Monthly or less (1 point)Ywmnbr5PeemahdhdinjmiDndkropn Problems Problem Type SNOMED Code ICD Code Onset Dates Problem Status W/U Status Risk Notes Problem Periapical abscess ( disorder) (636043799) Periapical abscess without sinus (K04.7) ActiveconfirmedProblemGastroparesis (708692732)Gastroparesis (K31.84)Active confirmedProblemEdema (41479835)Edema (R60.9)ActiveconfirmedProblemThyroid nodule (606905563)Thyroid nodule (E04.1)ActiveconfirmedProblemCold sore (8354069)Cold sore (B00.1)ActiveconfirmedProblemWell adult (805087143)Well adult (Z00.00)ActiveconfirmedProblemRight lower quadrant pain (945130038)Right lower quadrant abdominal pain (R10.31)ActiveconfirmedProblemIron deficiency anemia (73134872)Iron deficiency anemia (D50.9)ActiveconfirmedProblemContact dermatitis (79294165)Contact dermatitis (L25.9)ActiveconfirmedProblemHashimoto's disease (91977799)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)ActiveconfirmedProblemFacial pain (63323199)Facial pain (R51.9)Activeconfirmed Vital Signs Blood pressure diastolic 120 mm Hg 08/26/2025 Aaxpzv25 in08/26/2025lood pressure xpbxsyky020 mm Hg08/26/20255546Vmovly176.8 lbs 08/26/2025BMI33.58 kg/m208/26/2025 Encounters Encounter Location Date Provider Diagnosis [facility] [address] [place] [address] 09/18/2024 Suze Chávez Colon polyp K63.5 [facility] [address] [place] [address] 09/21/2024 Suze Hoy Well adult Z00.00 [facility] [address] [place] [address] 09/23/2024 Suze Hoy [facility] [facility] [place] [address] 10/22/2024[facility] [facility] [place] [address]/06/2025[facility]Col[facility]63.[facility] [address] [facility] [place] [address]/[facility] [facility] [place] [address]/[facility] [facility] [place] [address]/ Suze HoyColon polyp K63.5 ; Iron deficiency anemia D50.9 and Fatigue R53.83 [facility] [facility] [place] [address] 11/28/2024[facility] [facility] [place] [address]/Doug [facility] [facility] [place] [address]/10/2024Doug HoyRight lower quadrant abdominal pain R10.31[facility] [facility] [place] [address] 07/08/2025Doug HoyGastroparesis K31.84[facility] [facility] [place] [address]/oug HoyWell adult Z00.00[facility] [place] [facility] [place] [address]/ Suze HoyRight lower quadrant abdominal pain R10.31[facility] [facility] [place] [address]/Doug HoyWell adult Z00.00 and Gastroparesis K31.84 Assessments Encounter Date Diagnosis (ICD Code) Assessment Notes Treatment Notes Treatment Clinical Notes Section Notes 09/17/2024 Well adult (ICD-10 - Z00.00) 03/12/2025Right lower quadrant abdominal pain (ICD-10 - R10.31)08/26/2025Well adult (ICD-10 - Z00.00)08/26/2025Gastroparesis (ICD-10 - K31.84)4Colon polyp (ICD-10 - K63.5)09/21/2024Well adult (ICD-10 - Z00.00)5Colon polyp (ICD-10 - K63.5)11/26/2024olon polyp (ICD-10 - K63.5)11/26/2024Iron deficiency anemia (ICD-10 - D50.9)03/14/2025Right lower quadrant abdominal pain (ICD-10 - R10.31)07/08/2025Gastroparesis (ICD-10 - K31.84)11/26/2024Fatigue (ICD-10 - R53.83) Plan Of Treatment Pending Test Test Name Order Date CMP (COMPLETE METABOLIC PANEL) 4 CMP (COMPLETE METABOLIC PANEL) 4 CMP (COMPLETE METABOLIC PANEL) 4 HEMOGLOBIN A1C (GLYCO) 09/17/2024 HEMOGLOBIN A1C (GLYCO) 10/28/2023 HEMOGLOBIN A1C (GLYCO) 08/26/2025 IRON, TOTAL 08/26/2025 IRON, TOTAL 10/28/2023 IRON, TOTAL 09/17/2024 LIPID PANEL (CHOL/TRIG/HDL/LDL) 09/17/20 24 LIPID PANEL (CHOL/TRIG/HDL/LDL) 10/28/19 24 LIPID PANEL (CHOL/TRIG/HDL/LDL) 08/26/20 25 CBC WITH DIFF 10/28/2023 CBC WITH DIFF 09/17/2024 VITAMIN D, 25 LEVEL (TOTAL) 08/26/2025 US Lower Extremity LT 03/17/2024 FECAL OCCULT BLOOD 03/17/2024 Insulin Level 09/17/2024 Insulin Level 08/26/2025 COMPREHENSIVE METABOLIC PROFILE WITH GFR 04/29/2024 CBC W/AUTO DIFF 04/29/2024 CBC W/AUTO DIFF 11/26/2024 CBC W/AUTO DIFF 05/22/2024 STOOL OCCULT BLOOD 10/28/2023 NM CARDIOLITE W/EXER STRESS 11/04/2023 CBC AUTO DIFF 06/21/2024 CRP 07/03/2024 WILL-NEAL VIRUS (EBV) AB PROFILE 06/15 FERRITIN 06/21/2024 FERRITIN 07/03/2024 FERRITIN 11/26/2024 FERRITIN 05/22/2024 IRON 05/22/2024 IRON 11/26/2024 LIVER PROFILE 07/03/2024 MAGNESIUM 04/29/2024 MAGNESIUM 08/26/2025 PROF 14(COMP METB) 06/21/2024 TESTOSTERONE, FREE,DIRECT, TOTAL 024 CT ABD and PELV W CON 03/14/2025 THYROID PANEL (T4/TSH/FREE T3) 5 THYROID PANEL (T4/TSH/FREE T3) 4 THYROID PANEL (T4/TSH/FREE T3) 4 THYROID PANEL (T4/TSH/FREE T3) 5 THYROID PANEL (T4/TSH/FREE T3) 4 CMP (COMP MET BRANTLEY) w/eGFR CKD-EPI 2024 CBC WITH DIFF 08/26/2025 Insurance Providers Payer Name Payer Address Payer Phone Subscriber Number Group Number Insured Name Patient Relationship to Insured Coverage Start Date Coverage End Date [employer] [place] [employer] [address] [place] [address] [id number] Chandler Lewis - patient is the insured Medications Administered Medication Instructions Date of Administration Dosage Notes Promethazine 25mg 525 mg Medical (General) History Medical History History ICD Code Fatty (change of) liver, not elsewhere c lassified K76.0 Anemia D64.9 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
[2025-08-26 11:36] LABS: Hematocrit 37.1 % (36.0-48.0); Hemoglobin 12.4 g/dL (12.0-16.0); Immature Granulocytes Abs Auto 0.01 10^3/uL (0.00-0.03); Immature Granulocytes Pct Auto 0.2 % (0.0-0.5); Lymphocytes Absolute Auto 1.7 10^3/uL (1.2-3.8); Mean Corpuscular HGB Conc 33.4 g/dL (29.9-35.2); Mean Corpuscular Hemoglobin 24.7 pg (26.7-34.0); Mean Corpuscular Volume 73.9 fL (81.0-99.0); Platelet Count 334 10^3/uL (150-450); Red Blood Count 5.02 10^6/uL (4.20-5.40); White Blood Count 6.0 10^3/uL (4.0-11.0)
--- OUTSIDE RECORDS SUMMARY | 2025-08-26 11:37 | XMS_ITS | CCD ---
Author Organization [facility] CliniSyct Care Team Providers Care Tax Staff Accountant Name Role Phone Diogenes Garcia Primary Care Physician Diogenes Jimenez Unavailable Unavailable Michael Salazar Primary Care Provider Michael Salazar Primary Care Provider MICHAEL SALAZAR Admitting Unavailable MICHAEL SALAZAR Attending Unavailable MICHAEL SALAZAR Consulting Unavailable MICHAEL SALAZAR Primary Care Unavailable SHDAVID LA Consulting Unavailable MICHAEL SALAZAR Admitting Unavailable MICHAEL SALAZAR Attending Unavailable Diogenes Garcia Primary Care Physician Michael Man MD Primary Care Provider Michael Salazar MD Primary Care Provider Diogenes Garcia Primary Care Physician Diogenes Jimenez Unavailable Unavailable Michael Salazar MD Primary Care Provider Michael Salazar MD Primary Care Provider Michael Salazar MD Primary Care Provider Diogenes Garcia Primary Care Physician Michael Man MD Primary Care Provider Diogenes Garcia Primary Care Physician Michael Man MD Primary Care Provider Tricia LOYA, [facility] F Unavailable Michele Peterson DO Unavailable Michele Peterson DO Attending Provider [phone] Pinky Romero CNP Primary Care Provider Michael Salazar MD Primary Care Provider Michele Peterson DO Attending Provider [phone] HOY, MICHAEL M Referring Unavailable HOY, MICHAEL M Primary Care Unavailable HOY, MICHAEL M Referring Unavailable HOY, MICHAEL M Primary Care Unavailable HOY, MICHAEL M Referring Unavailable HOY, MICHAEL M Primary Care Unavailable HOY, MICHAEL M Referring Unavailable HOY, MICHAEL M Primary Care Unavailable HOY, MICHAEL M Primary Care Unavailable HOY, MICHAEL M Referring Unavailable HOY, MICHAEL M Primary Care Unavailable MALENFANT, STEFFI Referring Unavailabl e MALENFANT, STEFFI Referring Unavailabl e HOY, MICHAEL M Primary Care Unavailable LIZBET FREEMAN Referring Unavail able HOY, MICHAEL M Primary Care Unavailable STALIN CLARKE Attending Unavailable STALIN CLARKE Referring Unavailable HOY, MICHAEL M Primary Care Unavailable HOY, MICHAEL M Primary Care Unavailable MUMTAZ CASTILLO Admitting Unavailable MUMTAZ CASTILLO Attending Unavailable SURINDER BROCK Unavailable MALENFANT, STEFFI Referring Unavailabl e HOY, MICHAEL M Primary Care Unavailable MALENFANT, STEFFI Referring Unavailabl e HOY, MICHAEL M Primary Care Unavailable Michael Salazar MD Primary Care Provider [phone] Michele Peterson Admitting Unavailable Hoy, Michael M Primary Care Unavailable MurMichele evans Attending Unavailable Michele Peterson Attending Unavailable Michele Peterson Admitting Unavailable NON STAFF Primary Care Unavailable Michele Peterson Attending Unavailable Michele Peterson Admitting Unavailable MURVANCEKMICHELE Attending Unavailable MURVANCEKMICHELE W Attending Unavailable TRICIA, REAMAKelsea F Referring Unavailable MURCEK, MICHELE W Attending Unavailable MURVANCEKMICHELE W Attending Unavailable MURVANCEKMICHELE W Referring Unavailable MURCEK, MICHELE W Attending Unavailable MURCEKMICHELE W Attending Unavailable REA CLARKEMAKelsea F Attending Unavailable MURVANCEKMICHELE W Attending Unavailable TRICIA, AHMAD F Referring Unavailable SHERITA JURADO Attending Unavailable HEATHER, PINKY S Primary Care Unavailable KIRSTY MARTINEZ Attending Unavailable HEATHER, PINKY S Primary Care Unavailable ELADIA RESENDEZ II Attending Unavailabl e HEATHER, PINKY S Primary Care Unavailable COOPERRIDER ELADIA CORRALES Attending Unavailabl e KIRSTY MARTINEZ Attending Unavailable HEATHER, PINKY S Primary Care Unavailable HEATHER, PINKY S Primary Care Unavailable KIRSTY MARTINEZ Referring Unavailable KIRSTY MARTINEZ Attending Unavailable MALENFANT, STEFFI E Attending Unavaila ble MALENFANT, STEFFI E Attending Unavaila ble MALENFANT, STEFFI E Referring Unavaila ble MALENFANT, STEFFI E Referring Unavaila ble MICH MACEDO Attending Unavailable MICHAEL SALAZAR Referring Unavailable KOBEIHARIKAYRAMONAH Admitting Unavailable MALENFANT, STEFFI E Referring Unavaila ble MALENFANT, STEFFI E Referring Unavaila ble MALENFANT, STEFFI E Referring Unavaila ble MALENFANT, STEFFI E Attending Unavaila ble MALENFANT, STEFFI E Attending Unavaila ble SHERITA JURADO Referring Unavailable Allergies Allergy ClassificationReported Allergen(s)Allergy TypeDate of OnsetReaction(s) FacilityAdrenergic Antagonists (2 sources)Adrenergic Beta-AntagonistsDrug Zddmenx59-88-7268Eohps HealthCalcium Channel Blockers (2 sources)dilTIAZemDrug Pbezudw87-40-6814Psjtj HealthLatex (2 sources)LatexSubstance Azzdkae96-27-7397Dpqzenygh Of Breath, SwellingOhiohealth Berger HospitalMetoprolol (2 sources)MetoprololDrug Vmmjkfs08-38-6978Jwhtv CurrencyBirdOndansetron (2 sources)OndansetronDrug Akncghz45-47-6446Xglrc (See Comments)[email or web address] (20 sources)Latex; Translations: [latex]Allergy to substance (disorder) 73-53-3791Foslfmcat Of Breath, Swelling, Anaphylaxis, RashBldosher memorial hospital [employer] (6 sources)Metoprolol; Translations: [metoprolol succinate]Drug AllergyLincolnImmune System Therapeutics (6 sources)Ondansetron; Translations: [Zofran]Drug AllergyLincolnImmune System Therapeutics (20 sources)Adrenergic Beta-AntagonistsPropensity to adverse reactions to drug 46-21-9117Tqaxy HealthK[facility], [place] (20 sources)OndansetronDrug Uqolyhp20-87-4513Hkdul (See Comments)[place], [place] (20 sources)dilTIAZem; Translations: [DILTIAZEM]Drug Cqhovif93-62-1130YshaSwptq Health- [place], [place] (20 sources)MetoprololDrug Fpbymzj03-53-1329Ltiuq Health- [place], [place] (2 sources)dilTIAZemDrug AllergyThe [facility] (2 sources)MetoprololDrug AllergyThe [facility] (2 sources)OndansetronDrug AllergyThe [facility] (1 source)CardiaDrug allergy (disorder)[facility] (18 sources)beta-Blocking agentPropensity to adverse reactions to rqvv97-67-3339 Rash, Other: See CommentsCARILION CLINIC (20 sources)beta-Blocking agentDrug Ajtcjwspguv91-74-8815ErxyTSCI Healthcare Work Phone: (20 sources)Ondansetron; Translations: [ONDANSETRON]Drug Egdwzjq69-54-5380 Headache, Other, Other: See [facility] (2 sources)Adrenergic Beta-Antagonists; Translations: [BETA-BLOCKERS (BETA- ADRENERGIC BLOCKING AGTS)]Propensity to adverse reactions to drug (disorder) 93-74-2824MtbyhkwkvTrinity Health [facility] Medications Current Medications MedicationDrug Class(es)DatesSig (Normalized)Sig (Original)Acetaminophen (2 sources)Start: 59-54-1644khuvccvhfqrkq (TYLENOL) tablet 650 mgStart: 09-02-2020 End: 09-01-8380ppauxiedxefal (TYLENOL) tablet 650 mgacetaminophen 325 mg / HYDROcodone bitartrate 5 mg oral tablet (1 source)Opioid AgonistStart: 07-14-2021 End: 41-08-6003BEEWHtprkra-acetaminophen (NORCO) 5-325 MG per tablet Indications: Post-op pain Take 1 tablet by mouth every 6 hours as needed for Pain for up to 5 days. Intended supply: 5 days. Take lowest dose possible to manage pain 10 tablet 0 07/14/2021 07/19/2021 ActiveamLODIPine 5 mg oral tablet (20 sources)Dihydropyridine Calcium Channel BlockerStart: 12-97-8290laOEOPPbzs (Norvasc) 5 MG tablet 10/29/2023 Activeamoxicillin 500 mg oral capsule (2 sources)Penicillin-class Antibacterial End: 24-60-7708nkkw 2 capsules by mouth every twelve hoursamoxicillin 500 mg capsule 03/05/2024 take 2 capsules by oral route every 12 hoursazelastine hydrochloride 0.5 mg/ml ophthalmic solution (9 sources)Histamine-1 Receptor AntagonistStart: 64-33-3284ewpv 1 drop(s) into the eye(s) in the morningazelastine (Optivar) 0.05 % ophthalmic solution Administer 1 drop into affected eye(s) in the morning and 1 drop in the evening. 01/11/2025 ActiveStart: 01-11-2025 End: 44-68-3665dvyb 1 drop(s) into the eye(s) twice dailyAzelastine HCl (OPTIVAR) 0.05 % ophthalmic solution Use 1 Drop in both eyes two times a day for 14 days. 6 mL 5 01/11/2025 01/25/2025 Activebenoxinate hydrochloride 4 mg/ml / fluorescein sodium 3 mg/ml ophthalmic solution (2 sources)Diagnostic DyeStart: 01-11-2025 End: 09-67-6555csqphadzpra-benoxinate 0.3-0.4 % 1 Drop (FLURESS)Start: 01-11-2025 End: Drop, BOTH EYES, DIRECTED, Starting on Sat01/11/25 at 1530, Until Sat01/12/25 at 0329, Administer for applanation tonometry. In the event of a Fluress shortage, administer [place]-Fluor 1 drop into both eyes as directed for applanation tonometrybisacodyl 5 mg delayed release oral tablet (8 sources)Stimulant LaxativeStart: 45-56-9034Qnvkoudwv EC 5 MG EC tablet 01/20/2025 Activecalcium chloride 0.0014 meq/ml / potassium chloride 0.004 meq/ml / sodium chloride 0.103 meq/ml / sodium lactate 0.028 meq/ml injectable solution (1 source)Start: 52-78-6868syqstkpr ringers infusioncefdinir 300 mg oral capsule (4 sources)Cephalosporin AntibacterialStart: 37-20-7152vnsgozhv (OMNICEF) 300 MG capsule 07/25/2023 Activechorionic gonadotropin 42045 unt/ml injectable solution (1 source)GonadotropinStart: 45-61-4045wlaxbvpro gonadotropin (NOVAREL) 15593 units SOLR Inject 1 vial into the muscle once for 1 dose 1 each 0 02/13/2022 Activeclindamycin 300 mg oral capsule (1 source)Lincosamide AntibacterialStart: 03-11-2021 End: 43-77-8671dgmz 1 capsule by mouth three times dailyclindamycin (CLEOCIN) 300 MG capsule Take 1 capsule by mouth 3 times daily for 7 days 21 capsule 0 0 03/11/2021 03/18/2021 ActiveclomiPHENE citrate 50 mg oral tablet (13 sources)Estrogen Agonist/AntagonistStart: 48-15-8801wldv 2 tablets by mouth once daily, then take 3-7 tablets by mouth onceclomiPHENE (CLOMID) 50 MG tablet Indications: Infertility associated with anovulation Take 2 tablets by mouth daily Take days 3-7 of cycle 10 tablet 0 12/11/2021 ActiveStart: 09-18-2021 clomiPHENE (CLOMID) 50 MG tablet Take 2 tablets by mouth daily Cycle date 3-7 10 tablet 0 10/16/2021 ActiveStart: 24-61-7105gdwr 1 tablet by mouth once daily clomiPHENE (CLOMID) 50 MG tablet Indications: Anovulation Take 1 tablet by mouth daily 5 tablet 0 03/20/2021 ActiveStart: 01-12-2021 End: 88-93-7331mula 1 tablet by mouth once daily, then take 5-9 tablets by mouth onceclomiPHENE (CLOMID) 50 MG tablet Indications: Anovulation Take 1 tablet by mouth daily Take days 5-9 of cycle 5 tablet 0 01/12/2021 Active End: 33-77-1136Bgzude 50 mg 01/23/2022 Take days 5-9Clomid 50 mg Take days 5-9 dexamethasone 1 mg/ml / neomycin 3.5 mg/ml / polymyxin b 20574 unt/ml ophthalmic suspension (1 source)Aminoglycoside Antibacterial, Polymyxin-class Antibacterial, Corticosteroid End: 35-49-3273odnc 1 drop(s) into the eye(s) three times daily TAVQGMMV-SRNPFSWBX-IWKDRSJJ 3.5 MG/ML-10,000 UNIT/ML-0.1% EYE DROPS Use 1 Drop in the left eye three times a day. 12/18/2024 Discontinued (Clinical Decision) estradiol 0.1 mg/ml vaginal cream (7 sources)EstrogenStart: 04-43-9401sldtjwwvm (ESTRACE VAGINAL) 0.1 MG/GM vaginal cream Indications: Vaginal dryness Place 1 g vaginally Twice a Week 1 Tube 3 06/05/2018 Active End: 11-96-3467fdaahzgly 0.01 % (0.1 mg/gram) vaginal cream 01/26/2021 insert 1 g vaginally twice weeklyfluocinonide 0.5 mg/ml topical solution (10 sources)CorticosteroidStart: 01-08-2022 End: 40-61-8309yrcybludwrmn (LIDEX) 0.05 % external solution apply to scalp topically Once a day when flared for 30 day(s) 01/08/2022 Active End: 59-86-7730uvvdzusnhntx 0.05 % topical cream 03/05/2024 apply to the affected area(s) by topical route once dailyfluticasone propionate 0.05 mg/actuat metered dose nasal spray (20 sources)CorticosteroidStart: 36-57-1910yhry 1 spray(s) nasal route once dailyfluticasone (Flonase) 50 MCG/ACT nasal spray Administer 1 spray into each nostril Daily 02/03/2024 ActiveStart: 99-05-3779yujqaptyhfw (FLONASE) 50 MCG/ACT nasal spray 02/24/2020 Activetake 1 spray(s) nasal route once dailyfluticasone (FLONASE) 50 mcg/actuation nasal spray Use 1 Purdys in each nostril once daily. Activetake 50 ug nasal route once dailyFlonase Allergy Relief 50 mcg/actuation nasal spray,suspension spray 1 - 2 sprays (50 - 100 mcg) ineach nostril by intranasal route once dailyhydroCHLOROthiazide 50 mg oral tablet (20 sources)Thiazide DiureticStart: 02-08-2023 End: 80-85-3621ioix 1 tablet by mouth once dailyhydrochlorothiazide 50 mg tablet 02/08/2023 03/05/2024 take 1 tablet (50 mg) by oral route once dailyStart: 79-93-1156lzyg 1 tablet by mouth once dailyhydroCHLOROthiazide (HYDRODIURIL) 25 MG tablet Take 1 tablet by mouth daily 02/26/2020 ActivehydrOXYzine pamoate 25 mg oral capsule (20 sources)AntihistamineStart: 70-68-8751viwi 1 capsule by mouth four times daily as needed for anxietyhydrOXYzine (VISTARIL) 25 MG capsule Take 1 capsule by mouth 4 times daily as needed for Anxiety 08/24/2020 Activetake 4 capsules by mouth once daily at bedtime as neededVistaril 25 MG capsule 4 capsule at bedtime as needed Orally Once a day prn Activehyoscyamine sulfate 0.125 mg sublingual tablet (12 sources)Start: 75-08-9650lfkz 1 tablet under the tongue every six hours as needed for diarrheahyoscyamine (LEVSIN/SL) [address] 1 tablet under the tongue every 6 hours as needed for Diarrhea or Cramping 07/25/2023 ActiveStart: 80-95-0659guyiujhvnow (LEVSIN/SL) 125 MCG sublingual tablet 07/25/2023 Activeimiquimod 50 mg/ml topical cream (1 source)Start: 08-28-2022 End: 69-02-5968xcfofvvtp (ALDARA) 5 % cream Apply topically three times a week. 24 each 1 08/28/2022 09/04/2022 Activeketorolac tromethamine 10 mg oral tablet (8 sources)Nonsteroidal Anti-inflammatory Drug, Cyclooxygenase InhibitorStart: 07-14-2021 End: 19-80-4814hyjb 1 tablet by mouth every six hours as needed for pain ketorolac (TORADOL) 10 MG tablet Take 1 tablet by mouth every 6 hours as needed for Pain 20 tablet 0 07/14/2021 07/14/2022 ActiveStart: 09-02-2020 End: 23-94-8761faux 1 tablet by mouth every six hours as needed for pain ketorolac (TORADOL) 10 MG tablet Take 1 tablet by mouth every 6 hours as needed for Pain Do not usewith other NSAIDs. May add Tylenol for pain relief. 20 tablet 0 03/11/2021 ActiveStart: 06-17-2020 End: 10-77-4887jecblheuz (TORADOL) injection 30 mglabetalol hydrochloride 200 mg oral tablet (20 sources)beta-Adrenergic BlockerStart: 02-24-2020 End: 81-76-1290jtvj 1 tablet by mouth twice dailylabetalol (NORMODYNE) 200 MG tablet Take 1 tablet by mouth 2 times daily 02/24/2020 Activeletrozole 2.5 mg oral tablet (18 sources)Aromatase InhibitorStart: 67-62-2449hkar 2 tablets by mouth once dailyletrozole (FEMARA) 2.5 MG tablet Indications: Anovulation Take 2 tablets by mouth daily 10 tablet ActiveStart: 73-23-3502vjyg 2 tablets by mouth once dailyletrozole (FEMARA) 2.5 MG tablet Indications: Anovulation Take 2 tablets by mouth daily 10 tablet ActiveStart: 72-61-0132hqgkwbwnw (FEMARA) 2.5 MG tablet Indications: Anovulation Take 1 tablet days 5-9 of cycle. 5 tablet0 04/18/2021 ActiveStart: 05-11-2019 End: 20-26-4957pwogoovdn (FEMARA) 2.5 MG tablet Indications: Anovulation Take 1 tablet days 5-9 of cycle. 5 tablet0 05/03/2020 09/01/2020 Discontinued (LIST CLEANUP)levothyroxine sodium 0.137 mg oral tablet (20 sources)l-ThyroxineStart: 09-29-2024 End: 08-66-8999bkfv 1 tablet by mouth at bedtimelevothyroxine (Synthroid, Levoxyl) 137 MCG tablet Indications: Christie's disease Take 137 mcg by mouth at bedtime 90 tablet 3 09/29/2024 09/24/2025 ActiveStart: 94-44-1671rewj 1 tablet by mouth once dailylevothyroxine 137 mcg oral tablet 03/05/2024 Take 1 tab daily with water only on empty stomach, no other foods,drinks,or meds for 2hr before or after CHARIS-1 MYLAN brand onlyStart: 76-72-1045stkl 1 tablet by mouth once dailylevothyroxine 137 mcg oral tablet 02/08/2023 Take 1 tab daily with water only on empty stomach, no other foods,drinks,or meds for 2hr before or after CHARIS-1 MYLAN brand onlyStart: 40-43-4555fsxv 1 tablet by mouth once daily levothyroxine 137 mcg oral tablet 01/23/2022 Take 1 tab daily with water only on empty stomach, no other foods,drinks,or meds for 2hr before or after CHARIS- MYLAN brand onlyStart: 67-32-0677zxuu 1 tablet by mouth once dailylevothyroxine 137 mcg oral tablet 01/26/2021 Take 1 tab daily with water only on empty stomach, no other foods,drinks,or meds for 2hr before or after CHARIS- MYLAN brand onlyM-JUNO PLUS 27 mg iron- 1 mg (4 sources)Start: 67-87-2776I- PLUS 27 mg iron- 1 mg 1 tablet. 12/18/2024 Activemagnesium oxide 400 mg oral tablet (20 sources)Start: 40-19-2372brgbuqumf oxide (Mag-Ox) 400 MG tablet 05/18/2025 Aemlkl88 hr metFORMIN hydrochloride 500 mg extended release oral tablet (20 sources)BiguanideStart: 90-24-4000mwvo 2 tablets by mouth in the morning metFORMIN (GLUCOPHAGE-XR) 500 MG extended release tablet TAKE TWO (2) TABLETS BY MOUTH IN THE MORNING AND TAKE TWO (2) TABLETS BY MOUTH AT BEDTIME 120 tablet 10 09/21/2024 ActiveStart: 33-87-1602awwr 1 tablet by mouth twice dailymetFORMIN ER (GLUCOPHAGE XR) 500 mg 24 hr tablet Take 1,000 mg by mouth two times a day. 09/21/2024ctiveStart: 21-28-3309dini 2 tablets by mouth at bedtimemetFORMIN (GLUCOPHAGE-XR) 500 MG extended release tablet TAKE TWO (2) TABLETS BY MOUTH IN THE MORNING AND AT BEDTIME 120 tablet 12 09/03/2023 ActiveStart: 52-21-9739sbsg 2 tablets by mouth twice daily at dinnermetformin 500 mg tablet 02/08/2023 take 2 tablets (1,000 mg) by oral route 2 times per day with morning and evening meals Start: 88-84-5364wmyz 2 tablets by mouth at bedtimemetFORMIN (GLUCOPHAGE-XR) 500 MG extended release tablet TAKE TWO (2) TABLETS BY MOUTH IN THE MORNING AND AT BEDTIME 120 tablet 10 10/11/2022 ActiveStart: 82-35-2383hdjg 2 tablets by mouth at bedtimemetFORMIN (GLUCOPHAGE-XR) 500 MG extended release tablet Take 2 tablets by mouth in the morning andat bedtime 360 tablet 0 07/30/2022 Active Start: 92-15-9344jffj 2 tablets by mouth at bedtimemetFORMIN (GLUCOPHAGE-XR) 500 MG extended release tablet Take 2 tablets by mouth in the morning andat bedtime 360 tablet 1 02/12/2022 ActiveStart: 88-36-4081dkew 1 tablet by mouth once daily in the morning, then take 3 tablets by mouth once daily in the eveningmetFORMIN (GLUCOPHAGE) 500 MG tablet Indications: Anovulation TAKE 1 TABLET BY MOUTH EVERY MORNING ~108Q3 TAKE 3 TABLETS BY MOUTH EVERY EVENING 120 tablet 3 01/09/2022 ActiveStart: 73-06-5936orvn 4 tablets by mouth in the eveningmetformin 500 mg oral tablet 01/26/2021 take 4 tablets in the eveningStart: 01-12-2021 End: 44-85-7958zjmUTVJPI (GLUCOPHAGE) 500 MG tablet Indications: Anovulation Take 3 tabs at night(1500mg) and 1 tab in am (500mg) 360 tablet 3 01/12/2021 03/11/2021 Discontinued (LIST CLEANUP)Start: 45-85-0355duuBCHLBO (GLUCOPHAGE XR) 500 MG extended release tablet Take 1 tablet with breakfast and 3 tabletsat bedtime daily. 270 tablet 1 10/03/2020 ActiveStart: 44-79-6198vett 3 tablets by mouth once dailymetFORMIN (GLUCOPHAGE XR) 500 MG extended release tablet Take 3 tablets by mouth daily. 90 tablet 10 11/10/2019 ActiveStart: 67-36-9730yqgz 3 tablets by mouth once dailymetFORMIN (GLUCOPHAGE-XR) 500 MG extended release tablet Take 3 tablets by mouth daily 90 tablet ActivemetFORMIN XR (Glucophage-XR) 500 MG 24 hr tablet Activetake 2 tablets by mouth every twenty- four hours at bedtimemetFORMIN XR (Glucophage-XR) 500 MG 24 hr tablet TAKE TWO (2) TABLETS BY MOUTH IN THE MORNING AND AT BEDTIME Activetake 3 tablets by mouth in the eveningmetformin 500 mg oral tablet take 3 tablets in the evening1 ml morphine sulfate 2 mg/ml cartridge (2 sources)Opioid AgonistStart: 02-14-2025 End: mg, IntraVENous, EVERY 2 HOURS PRN, Starting on 02/14/25 at 0155, Until Sat02/17/25 at 0154, Pain Moderate (4-6), allowed for higher pain score per patient request, If oral and IV narcotics ordered, use oral first and only use IV if oral is ineffective or cannot take oral. Do Not give oral and IV within 1 hour of each other unless specifically ordered.Start: 02-13-2025 End: 05-49-6208tblo 1 dose by mouth every hour4 mg, IntraVENous, ONCE, 1 dose, On 02/13/25 at 2215, If oral and IV narcotics ordered, use oral first and only use IV if oral is ineffective or cannot take oral. Do Not give oral and IV within 1 hour of each other unless specifically ordered.naproxen 500 mg oral tablet (8 sources)Nonsteroidal Anti-inflammatory DrugStart: 87-46-8184niww 1 tablet by mouth twice dailynaproxen (NAPROSYN) 500 MG tablet Take 1 tablet by mouth 2 times daily 30 tablet 0 03/22/2022 Active End: 90-14-0187wrbw 2 tablets by mouth twice daily as needednaproxen 250 mg oral tablet 01/27/2019 take 2 tablets by oral route 2 times a day as qaqyzx75 hr nicotine 0.583 mg/hr transdermal system (20 sources)Cholinergic Nicotinic Agonistnicotine (Nicoderm, Step 2) 14 MG/24HR patch Place 1 patch on the skin Activeapply 1 dose transdermal route every twenty-four hoursnicotine (NICODERM CQ) 14 MG/24HR Place 1 patch onto the skin every 24 hours Active End: 83-57-7459uzaazanx (NICOTROL) 10 MG inhaler Nicotine nicotine patch 14mg 24hr patch [facility] ([address]280) 0 06/17/2020 Discontinued (Therapy completed)apply 14 mg transdermal route every twenty-four hoursnicotine patch 14mg 24hr patchofloxacin 3 mg/ml ophthalmic solution (1 source)Quinolone AntimicrobialStart: 12-18-2024 End: 92-10-6018zuaa 1 drop(s) into the eye(s) four times dailyofloxacin (OCUFLOX) 0.3 % ophthalmic solution Indications: Conjunctival edema, bilateral Use 1 Dropin both eyes four times daily for 7 days. 5 mL 1 12/18/2024 12/18/2024 Discontinued (Not on Formulary)omeprazole 40 mg delayed release oral capsule (20 sources)Proton Pump Inhibitortake 1 capsule by mouth once dailyomeprazole (PriLOSEC) [address] capsule Take 1 capsule by mouth Daily Activeoxaprozin 600 mg oral tablet (20 sources)Nonsteroidal Anti-inflammatory Drugoxaprozin (Daypro) 600 MG tablet Activeoxaprozin (DAYPRO) 600 MG tablet TAKE 2 TABLETS BY MOUTH EACH MORNING Activephenazopyridine hydrochloride 200 mg delayed release oral tablet (1 source)Start: 07-14-2021 End: 63-50-3054ypni 1 tablet by mouth three times daily as needed for pain phenazopyridine (PYRIDIUM) 200 MG tablet Take 1 tablet by mouth 3 times daily as needed for Pain 9 tablet 0 07/14/2021 07/17/2021 Activepolyethylene glycol 3350 04695 mg powder for oral solution (1 source)Osmotic LaxativeStart: 27-14-5891Slxhvtfal Chloride (14 sources)Start: 42-72-0391jnkautdae chloride (KLOR-CON M) extended release tablet 40 mEqStart: 02-08-2023 End: 01-78-1941ssyw 2 tablets by mouth twice dailypotassium chloride ER 10 mEq tablet,extended release 02/08/2023 03/05/2024 take 2 tablets by oral route 2 times a dayStart: 90-44-0715gtfv 1 tablet by mouth twice dailypotassium chloride (KLOR-CON) 10 MEQ extended release tablet TAKE 1 TABLET BY MOUTH TWICE DAILY 01/12/2022 UknmweKhijls-SoQjb-Qmeet-Ca-Nallen 3 ( + Complete Multi) 18- 0.8 & 290 MG therapy (20 sources)Tdgbuq-UmCvz-Blouy-Ca-Nallen 3 ( + Complete Multi) 18-0.8 & 290 MG therapy XhrkxqZvahak-JzPlo-Ysjqm-Ca-Nallen 3 ( + Complete Multi) 18-0.8 & 290 MG therapy as directed Orally ActivePrenatal Vit-Fe Fumarate-FA (M- Juno Plus) 27-1 MG tablet (5 sources)Start: 29-18-4675zfjz 1 tablet by mouth once dailyPrenatal Vit-Fe Fumarate-FA (M- Plus) 27-1 MG tablet Take 1 tablet by mouth Daily 04/19/2025 ActivePrenatal Vit-Fe Fumarate-FA (M-JUNO PLUS) 27-1 MG TABS (18 sources)Start: 17-55-1948ajqh 1 tablet by mouth once dailyPrenatal Vit-Fe Fumarate-FA (M- PLUS) 27-1 MG TABS Take 1 tablet by mouth daily 30 tablet 12 09/08/2024 ActiveStart: 34-95-4593hffe 1 tablet by mouth once dailyPrenatal Vit-Fe Fumarate-FA (M- PLUS) 27-1 MG TABS Take 1 tablet by mouth daily 30 tablet 12 09/03/2023 ActiveStart: 44-65-2950tlgd 1 tablet by mouth once daily Vit-Fe Fumarate-FA (M-JUNO PLUS) 27-1 MG TABS TAKE 1 TABLET BY MOUTH DAILY 30 tablet 9 12/10/2022 ActiveStart: 24-23-1101lcwh 1 tablet by mouth once dailyPrenatal Vit-Fe Fumarate-FA (M-JUNO PLUS) 27-1 MG TABS TAKE 1 TABLET BY MOUTH DAILY 30 tablet 10 02/01/2022 ActivePrenatal Vit-Fe Fumarate-FA ( VITAMIN PLUS LOW IRON) 27-1 MG TABS (18 sources)Start: 17-89-3315kexh 1 tablet by mouth once dailyPrenatal Vit-Fe Fumarate-FA ( VITAMIN PLUS LOW IRON) 27-1 MG TABS Take 1 tablet by mouth daily 90 tablet 3 02/01/2021 ActiveStart: 53-24-1999ktqa 1 tablet by mouth once dailyPrenatal Vit-Fe Fumarate-FA ( VITAMIN PLUS LOW IRON) 27-1 MG TABS Take 1 tablet by mouth daily 30 tablet 11 07/29/2018 SuspendedStart: 07-29-2018 take 1 tablet by mouth once dailyPrenatal Vit-Fe Fumarate-FA ( VITAMIN PLUS LOW IRON) 27-1 MG TABS Take 1 tablet by mouth daily 30 tablet 11 07/29/2018 ActiveQUEtiapine 50 mg oral tablet (20 sources)Atypical AntipsychoticQUEtiapine (SEROquel) 50 MG tablet Ahyxrq2066 ml sodium chloride 9 mg/ml injection (9 sources)Start: 16-62-7426Fjcst: 02-13-2025 End: 63-91-7439AkclyPOZpjy, at 75 mL/hr, CONTINUOUS, Starting on 02/14/25 at 0215, For 24 hours, Complete last bag that is running at 24 hours and then saline lock IVStart: 79-02-1755bvuuvd chloride flush 0.9 % injection 10 mLStart: 06-17-2020 End: .9 % sodium chloride bolustropicamide 10 mg/ml ophthalmic solution (2 sources)AnticholinergicStart: 01-11-2025 End: 52-36-3697parsosmmqju 1 % 1 Drop (MYDRIACYL)Start: 01-11-2025 End: Drop, BOTH EYES, DIRECTED, Starting on Sat01/11/25 at 1530, Until Sat01/12/25 at 0329, Administer for mdcxaaqe36 hr venlafaxine 75 mg extended release oral capsule (20 sources)Serotonin and Norepinephrine Reuptake InhibitorStart: 08-24-2020 venlafaxine (EFFEXOR XR) 75 MG extended release capsule 2 capsules nightly 08/24/2020 ActiveStart: 49-38-7479tugcwmormdw ER (EFFEXOR XR) 75 mg 24 hr capsule 150 mg. 08/24/2020 ActiveStart: 69-24-6772gmliyrlfwxw (EFFEXOR XR) 75 MG extended release capsulevenlafaxine XR (Effexor XR) 150 MG 24 hr tablet Active take 1 capsule by mouth once dailyEffexor XR 150 mg oral capsule,extended release 24hr take 1 capsule (150 mg) by oral route once daily Completed/Discontinued Medications MedicationDrug Class(es)DatesSig (Normalized)Sig (Original)acetaminophen 325 mg / oxyCODONE hydrochloride 5 mg oral tablet (1 source)Opioid AgonistStart: 03-11-2021 End: 65-00-6666vwgXUHOMI-acetaminophen (PERCOCET) 5-325 MG per tablet 1 tablet Start: 03-11-2021 End: 98-51-8888mglBVJDFM-acetaminophen (PERCOCET) 5-325 MG per tablet 1 tablet amoxicillin 500 mg / clavulanate 125 mg oral tablet (2 sources)Penicillin-class AntibacterialStart: 03-22-2022 End: 41-15-8792bjolyptwzdf-clavulanate (AUGMENTIN) 500-125 MG per tablet 1 tabletStart: 03-22-2022 End: 93-95-1282jcdt 1 tablet by mouth twice dailyamoxicillin-clavulanate (AUGMENTIN) 875-125 MG per tablet Take 1 tablet by mouth 2 times daily for 10 days 20 tablet 0 03/22/2022 04/01/2022 ActivecefTRIAXone (ROCEPHIN) 1,000 mg in sterile water 10 mL IV syringe (1 source)Start: 02-14-2025 End: 74-53-8924bwhd 100 mg intravenously once1,000 mg, IntraVENous, ONCE, On 02/14/25 at 0115, For 1 dose, Administer as slow IV Push over 5 mins Reconstitute 1 g vials with 9.6 mL of designated diluent to produce a 100 mg/mL solution. cholecalciferol 0.05 mg oral tablet (20 sources)Vitamin DStart: 08-06-2023 End: 65-71-0795bthx 1 tablet by mouth once dailyvitamin D (CHOLECALCIFEROL) 50 MCG (2000 UT) TABS tablet Take 1 tablet by mouth daily 08/06/2023 02/14/2025 Discontinued (LIST CLEANUP)take 1 capsule by mouth once dailycholecalciferol (Vitamin D-3) 50 MCG (2000 UT) capsule Take 1 capsule by mouth Daily Active Cholecalciferol (VITAMIN D) 2000 units CAPS capsule Take by mouth 0 Active Diclofenac (6 sources)Nonsteroidal Anti-inflammatory Drug End: 88-32-5443rrwhaairns sodium 07/29/2018 Take daily24 hr dilTIAZem hydrochloride 180 mg extended release oral tablet (7 sources)Calcium Channel Shruthi End: 66-96-9556xjac 1 tablet by mouth once dailyMatzim LA 180 mg oral tablet extended release 24 hr 02/01/2020 take 1 tablet (180 mg) by oral route once daily take 1 tablet by mouth twice dailydiltiazem (CARDIZEM LA) 180 MG TB24 extended release tablet Take 180 mg by mouth 2 times daily 0 ActivedimenhyDRINATE 50 mg oral tablet (1 source)Start: 09-02-2020 End: 00-66-4971nnfeiogZQMTEMT (DRAMAMINE) tablet 50 mg1 ml diphenhydrAMINE hydrochloride 50 mg/ml cartridge (1 source)Histamine-1 Receptor AntagonistStart: 02-13-2025 End: mg, IntraVENous, ONCE, 1 dose, On 02/13/25 at 2215, IV Push at rate not to exceed 25 mg/min.Start: 02-13-2025 End: 58-00-264827 mg, IntraVENous, ONCE, 1 dose, On 02/13/25 at 2215, IV Push at rate not to exceed 25 mg/min.iopamidol (ISOVUE-370) 76 % injection 75 mL (1 source)Start: 02-13-2025 End: 55-60-5361hrxt 1 dose intravenously once75 mL, IntraVENous, IMG ONCE PRN, 1 dose, Starting on 02/13/25 at 2234, Until 02/13/25 at 2236,Otherlidocaine hydrochloride 20 mg/ml mucous membrane topical solution (1 source)Antiarrhythmic, Amide Local AnestheticStart: 03-11-2021 End: 97-82-9458cwgksazgw viscous hcl (XYLOCAINE) 2 % solution 15 mLStart: 03-11-2021 End: 31-29-2977emmhuoasd viscous hcl (XYLOCAINE) 2 % solution 15 mLloratadine 10 mg oral tablet (20 sources)Start: 08-06-2023 End: 51-53-9756icqt 1 tablet by mouth once dailyloratadine (CLARITIN) 10 MG tablet Take 1 tablet by mouth daily 08/06/2023 02/14/2025 Discontinued (LIST CLEANUP) End: 29-68-3146kcvw 1 capsule by mouth once dailyLoratadine 10 MG capsule Take 1 capsule by mouth Daily Cmidjd423 ml metroNIDAZOLE 5 mg/ml injection (1 source)Nitroimidazole AntimicrobialStart: 02-14-2025 End: 92-58-6351060 mg, IntraVENous, ONCE, 1 dose, On 02/14/25 at 0115, Antimicrobial Indications: Intra-Abdominal Infectionmoxifloxacin 5 mg/ml ophthalmic solution (5 sources)Quinolone AntimicrobialStart: 12-18-2024 End: 56-80-8388rlsh 1 drop(s) into the eye(s) four times dailymoxifloxacin (VIGAMOX) 0.5 % ophthalmic solution Use 1 Drop in both eyes four times daily. 3 mL 1 12/23/2024 01/11/2025 Discontinued (Course of therapy completed)mupirocin 0.02 mg/mg topical ointment (8 sources)RNA Synthetase Inhibitor Antibacterial End: 56-57-8876hftemfyjv (BACTROBAN) 2 % ointment Apply topically 3 times daily Apply topically 3 times daily. 02/14/2025 Discontinued (LIST CLEANUP)nabumetone 500 mg oral tablet (6 sources)Nonsteroidal Anti-inflammatory Drug End: 02-10-6488defr 1 tablet by mouth twice dailynabumetone 500 mg oral tablet 02/01/2020 take 1 tablet (500 mg) by oral route 2 times per dayoxyCODONE hydrochloride 5 mg oral tablet (1 source)Opioid AgonistStart: 09-02-2020 End: 52-34-5126zgtHLZVQF (ROXICODONE) immediate release tablet 5 mgprednisoLONE acetate 10 mg/ml ophthalmic suspension (5 sources)CorticosteroidStart: 12-18-2024 End: 90-35-7089uouidveoNXPV acetate (PRED FORTE) 1 % ophthalmic suspension Use 1 Drop in both eyes two times a day. 5 mL 12/23/2024 01/11/2025 Discontinued (Course of therapy completed) 28 mg iron- 800 mcg oral tablet (6 sources) 28 mg iron- 800 mcg oral tabletPrenatal Vit-Fe Fumarate-FA (GNP ) 28-0.8 MG TABS (1 source)Start: 05-10-2020 End: 64-04-9935expu 1 tablet by mouth once dailyPrenatal Vit-Fe Fumarate-FA (GNP ) 28-0.8 MG TABS TAKE 1 TABLET BY MOUTH DAILY 90 tablet 2 05/10/2020 06/17/2020 Discontinued (DUPLICATE)prochlorperazine 5 mg/ml injectable solution (2 sources)PhenothiazineStart: 97-20-111202 mg, IntraVENous, EVERY 6 HOURS PRN, Starting on 02/14/25 at 0400, Until Discontinued, Nausea, If administering IV push, administer at a maximum rate of 5 mg/minute. Patients should remain lying down following administration and be reassessed for relief of nausea and presence of hypotension. Patients should be assisted the first time they get up after administration.Start: 02-13-2025 End: 35-90-060349 mg, IntraVENous, ONCE, 1 dose, On 02/13/25 at 2215, If administering IV push, administer at a maximum rate of 5 mg/minute. Patients should remain lying down following administration and be reassessed for relief of nausea and presence of hypotension. Patients should be assisted the first time they get up after administration.1 ml promethazine hydrochloride 25 mg/ml injection (2 sources)PhenothiazineStart: 06-17-2020 End: 59-61-1488rmyutyznluts (PHENERGAN) injection 12.5 mgStart: 06-17-2020 End: 35-52-6851jtuc 1 tablet by mouth every six hours as needed for nausea promethazine (PHENERGAN) 25 MG tablet Take 1 tablet by mouth every 6 hours as needed for Nausea 30 tablet 0 06/17/2020 06/24/2020 Activetechnetium sulfur colloid egg Oral 1 millicurie (1 source)Start: 07-02-2025 End: millicurie, Oral, IMG ONCE PRN, 1 dose, Starting on Sat07/02/25 at 1032, Until Sat07/02/25 at 1032, Other, IN EGGtriamcinolone acetonide 1 mg/ml topical cream (8 sources)Corticosteroid End: 29-24-3537psldbmeyfswzh (KENALOG) 0.1 % cream Apply topically 2 times daily Apply topically 2 times daily. 02/14/2025 Discontinued (LIST CLEANUP) Problems Active Problems Problem ClassificationProblemDateDocumented DateEpisodic/ChronicAbdominal pain (20 sources)Left lower quadrant pain; Translations: [Unspecified abdominal pain] Onset: 11-20-2018 Resolved: 557734-90-1975CgzuhqvvIhhgawh disorders (20 sources)Anxiety; Translations: [Anxiety disorder, unspecified]Onset: 632779-58-3809CpdipngOldumzuqawqg and other appendiceal conditions (1 source)Appendicitis and other appendiceal conditions; Translations: [Acute appendicitis with generalized peritonitis, without perforation or abscess]Onset: 56-74-5929Giabxbylf and vision defects (1 source)Bilateral myopia of eyes; Translations: [Myopia, bilateral]01-11-2025 EpisodicComplications of surgical procedures or medical care (4 sources)History of subtotal thyroidectomy; Translations: [Postprocedural hypothyroidism]34-36-3534MqlodflHtayzavxvn and other anemia (3 sources)Anemia, unspecifiedEpisodicDisorders of teeth and jaw (1 source)Pain; Translations: [Dental caries, unspecified]EpisodicE Codes: Natural/environment (1 source)Cat bite - wound; Translations: [Bitten by cat, initial encounter] EpisodicEndometriosis (20 sources)Endometriosis (clinical); Translations: [Endometriosis, unspecified] Onset: 712522-17-7632AwauwmkDkzejordfu disorders (20 sources)Gastro-esophageal reflux disease without esophagitis; Translations: [Gastroesophageal reflux disease without esophagitis]Onset: ChronicEssential hypertension (20 sources)Benign essential hypertension; Translations: [Essential (primary) hypertension]Onset: 35-60-7280LbbxnikMcqatz infertility (4 sources)Female infertility; Translations: [Anovulation]ChronicGenitourinary symptoms and ill-defined conditions (4 sources)Endometrium thickened; Translations: [Endometrial thickening on ultrasound]49-06-1766BpkyhwoqFiionxvx (3 sources)Ocular hypertension, bilateral; Translations: [Ocular hypertension] Onset: 732163-83-4621HezhwbqHyphnxgg; including migraine (6 sources)Headache; Translations: [Headache]EpisodicInflammation; infection of eye (except that caused by tuberculosis or sexually transmitteddisease) (2 sources)Allergic conjunctivitis of bilateral eyes; Translations: [Acute atopic conjunctivitis, bilateral]Onset: 807675-87-9056QrxnglleEskojvcvh disorders (8 sources)Irregular menstrual cycle; Translations: [Irregular menstruation, unspecified]ChronicNausea and vomiting (8 sources)Nausea and vomiting; Translations: [Nausea]Onset: 25-03-3089Aiphlysa Nausea and vomiting (4 sources)Vomiting, unspecified; Translations: [VOMITING UNSPECIFIED]Onset: 98-63-0972Zlwcodrsikc deficiencies (2 sources)Vitamin D deficiency, unspecified; Translations: [Vitamin D deficiency, unspecified]Onset: 99-23-3449HnvjnyeHmskh disorders of stomach and duodenum (2 sources)Gastroparesis; Translations: [Gastroparesis]Onset: 63-56-5536Ysgmofzg Other endocrine disorders (4 sources)Polycystic ovariesOnset: 00-36-6879PnzavsjNtcpc endocrine disorders (8 sources)Polycystic ovarian syndromeOnset: 68-14-6950GkyrivjEszec endocrine disorders (20 sources)Polycystic ovary; Translations: [Polycystic ovarian syndrome]Onset: 565099-09-2302AswzsrcObuhr eye disorders (3 sources)Bilateral conjunctival edema; Translations: [Conjunctival edema, bilateral]01-86-9365ZmcxhwbzYtvwb eye disorders (1 source)Disorder of lacrimal gland; Translations: [Dry eye syndrome of bilateral lacrimal glands]36-30-8027HyqtjdyoFipfi female genital disorders (1 source)Lesion of labia; Translations: [Other specified noninflammatory disorders of vulva and perineum]54-18-2925CoanzshlVyzmc gastrointestinal disorders (4 sources)Irregular bowel habits; Translations: [Other specified symptoms and signs involving the digestive system and abdomen]46-58-8013QpjnheqeSmcbo gastrointestinal disorders (2 sources)Other specified symptoms and signs involving the digestive system and abdomen; Translations: [Otherspecified symptoms and signs involving the digestive system and abdomen]Onset: 44-45-2991FuijtjxxSpnlw liver diseases (2 sources)Unspecified disorder of liverChronicOther liver diseases (4 sources)Liver disease, unspecifiedChronicOther liver diseases (20 sources)Fatty (change of) liver, not elsewhere classified; Translations: [Other chronic nonalcoholic liver disease]Onset: hronic Other nervous system disorders (5 sources)Other chronic pain; Translations: [Other chronic pain]Onset: 58-56-4421WyzeuxmXfaxn nutritional; endocrine; and metabolic disorders (2 sources)Morbid obesityOnset: 38-23-3265KooccuxOjzum nutritional; endocrine; and metabolic disorders (4 sources)Morbid (severe) obesity due to excess caloriesOnset: 01-27-2019 ChronicOther nutritional; endocrine; and metabolic disorders (5 sources)Abnormal weight loss; Translations: [Abnormal weight loss]Onset: 47-71-6914ClhfxnhuAoyth nutritional; endocrine; and metabolic disorders (2 sources)Weight decreased; Translations: [Abnormal weight loss]07-02-2025 EpisodicOther screening for suspected conditions (not mental disorders or infectious disease) (20 sources)Endometrium thickened; Translations: [Abnormal findings on diagnostic imaging of other specified body structures]Onset: 02-07-2024 08-56-8641AgwfqfoLcfuc skin disorders (1 source)Localized swelling, mass and lump, unspecified; Translations: [Localized superficial swelling, mass, or lump]EpisodicOvarian cyst (1 source)Cyst of ovary; Translations: [Cyst of ovary, unspecified laterality] EpisodicResidual codes; unclassified (4 sources)Family history of cancer of colon; Translations: [Family history of malignant neoplasm of digestiveorgans]91-21-3454BgnaczcuLsfyzxc disorders (20 sources)Thyrotoxicosis without mention of goiter or other cause, and without mention of thyrotoxic crisis or storm; Translations: [Unspecified acquired hypothyroidism]Onset: 118348-32-7245AyclltjBhssybforknh (1 source)Myalgia, unspecified site; Translations: [MYALGIA UNSPECIFIED SITE] Onset: 10-28-2019 Past or Other Problems Problem ClassificationProblemDateDocumented DateEpisodic/Chronic Administrative/social admission (2 sources)Dietary counseling and surveillance; Translations: [Dietary counseling and surveillance]Onset: 67-08-8598VgccerfqHqwxttxwhesp and other appendiceal conditions (7 sources)Acute appendicitis with generalized peritonitis; Translations: [Acute appendicitis with generalizedperitonitis without gangrene, perforation, or abscess]Onset: 263308-16-3519DzcvizcoUcfhte neoplasm of uterus (20 sources)Uterine leiomyoma; Translations: [Leiomyoma of uterus, unspecified] Onset: 549233-82-4676YtzugcggWmvfthd dysrhythmias (1 source)Tachycardia, unspecified; Translations: [TACHYCARDIA UNSPECIFIED] Onset: 34-80-2134FbvibxiqBdxurlemza and other anemia (20 sources)Anemia; Translations: [Anemia, unspecified]Onset: 02-07-2024 09-09-3816XmonpaurOypizxoohk and other anemia (4 sources)Iron deficiency anemia, unspecified; Translations: [Iron deficiency anemia, unspecified]Onset: 09-47-8585HmstymmxXtddwxuf mellitus without complication (1 source)Hyperglycemia, unspecified; Translations: [HYPERGLYCEMIA UNSPECIFIED] Onset: 81-47-8260CuxqwqfeIunhc and electrolyte disorders (2 sources)Dehydration; Translations: [Hypokalemia]Onset: 22-02-5924Efbmhrcq Malaise and fatigue (2 sources)Other fatigue; Translations: [Other fatigue]Onset: 15-09-4021Ynlljstj Noninfectious gastroenteritis (20 sources)Other and unspecified noninfectious gastroenteritis and colitis; Translations: [Noninfective gastroenteritis and colitis, unspecified]Onset: 041595-86-7129PgavcwesPdkbl aftercare (1 source)Other funeral arrangement director (current) drug therapy; Translations: [OTH JBOSS DEVELOPER CURRENT DRUG THERAPY]Onset: 78-45-1813QdbxxsnzRnedg female genital disorders (20 sources)Cyst of uterine adnexa; Translations: [Other noninflammatory disorders of ovary, fallopian tube andbroad ligament]Onset: 025715-13-9627 EpisodicOther female genital disorders (1 source)Other specified noninflammatory disorders of vulva and perineum; Translations: [Other specified noninflammatory disorders of vulva and perineum] Onset: 74-34-7066YjuotvtyCgtfa liver diseases (2 sources)Abnormal levels of other serum enzymes; Translations: [Abnormal levels of other serum enzymes]Onset: 58-17-4789QbqdgjzxDayls nervous system disorders (20 sources)Postoperative pain ; Translations: [Other acute postprocedural pain] Onset: 401474-96-5047QwxzszgyPbpot screening for suspected conditions (not mental disorders or infectious disease) (13 sources)Other abnormal blood chemistry; Translations: [Abnormal results of liver function studies]Onset: 58-49-8912KszzltrvNccib upper respiratory infections (1 source)Streptococcal pharyngitis; Translations: [STREPTOCOCCAL PHARYNGITIS] Onset: 87-89-2266Phcjbwdc Results Test NameValueInterpretationReference WsfmtBgwpopla33hf 09-39-842123Jsfalwf calls asking about next steps after competing X-ray and labs. Please adviseNormalUniversMcKitrick HospitalBASIC METABOLIC PANELon 73-94-6256Jckmf gap [Moles/Vol]14 mmol/LNormal7-20UnCleveland Clinic Akron General Lodi HospitalComment on above:Performed By: #### [id number] #### [facility] ([facility]) [address] [place], [place] [address]Lqkgsdr [Mass/Vol]9.5 mg/dLNormal8.6-10.3UnCleveland Clinic Akron General Lodi HospitalComment on above:Performed By: #### [id number] #### [facility] ([facility]) [address] [place] [place], [place] [address]Rouvqaum [Moles/Vol]103 mmol/BBkznrq13-406ZyhamxudxdCleveland Clinic Akron General Lodi HospitalComment on above:Performed By: #### LAB15 #### [facility] ([facility]) [address] [place], [place] [address]ZR9 [Moles/Vol]26 mmol/JZrvfgy34-84UqxwtlxgkaCleveland Clinic Akron General Lodi HospitalComment on above:Performed By: #### LAB15 #### [facility] ([facility]) [address] [place] [place], [place] [address]Nvxzfruotf [Mass/Vol]0.66 mg/dLNormal0.60-1.20UnCleveland Clinic Ak[facility] General Lodi HospitalComment on above:Performed By: #### LAB15 #### [facility] ([facility]) [address] [place], [place] [address]HWRMSQEINZ FILTRATION RATE ML/MIN/1.73 SQ M.AUEICSICR866.5 mL/min/1.73m*2Normal>60.0UnCleveland Clinic Ak[facility] General Lodi HospitalComment on above: Result Comment: [facility]???s estimated glomerular filtration rate (eGFR) [...] potential consequences that do not disproportionately affect anyone group of individuals.Performed By: #### LAB15 #### [facility] ([facility]) [address] [place], [place] [address]Lxdxsfx [Mass/Vol]86 mg/rMJtktzk35-862UmitctgbosCleveland Clinic Akron General Lodi HospitalComment on above:Performed By: #### LAB15 #### [facility] ([facility]) [address] [place], [place] [address]Htgbhrodv [Moles/Vol]3.5 mmol/LNormal3.5-5.1UnCleveland Clinic [facility] General Lodi HospitalComment on above:Performed By: #### LAB15 #### [facility] ([facility]) [address] [place] [address]Audhsn [Moles/Vol]139 mmol/TPpzkwe902-239SozljiaddmCleveland Clinic Akron General Lodi HospitalComment on above:Performed By: #### LAB15 #### [facility] ([facility]) [address] [place], [place] [address]Oxbj nitrogen [Mass/Vol]9 mg/dLNormal7-25UnCleveland Clinic Akron General Lodi HospitalComment on above:Performed By: #### LAB15 #### [facility] ([facility]) [address] [place] [place], [place] [address]LQCD NITROGEN/CREATININE (MASS RATIO) IN SER/PLAS13.6Normal [facility] CenterComment on above:Performed By: #### LAB15 #### [facility] ([facility]) [address] [place] [address]Goqif [id number] Quyen Lewis 1990 F Date Provider Department Center 08/17/2025 2245-[facility] RESOURCE [facility] C Family History Problem Relation Age of Onset Esophageal cancer Maternal Grandfather Stomach cancer Maternal Grandfather Alcohol abuse Paternal Grandfather Hypertension Paternal Grandfather Heart attack Paternal Grandfather Colon polyps Paternal Grandfather Family Status - Relation Status Age at Maternal Grandfather Alive Paternal Grandfather AliveNormalUniversMcKitrick HospitalMAGNESIUMon 08-42-7881Gzdruhquv [Mass/Vol]1.6 mg/dLLow1.9-2.7UnCleveland Clinic Akron General Lodi HospitalComment on above:Performed By: #### [id number] ####[facility] ([facility])[address], [place] [address]Bncpls Visiton 46-92-6139Fkppjy-up [id number] Quyen Lewis 1990 F Date Provider Department Center 08/17/2025 19282-WUPLZBJGMMARISSA BERMUDEZ*MP [facility] Family History Problem Relation Age of Onset Esophageal cancer Maternal Grandfather Stomach cancer Maternal Grandfather Alcohol abuse Paternal Grandfather Hypertension Paternal Grandfather Heart attack Paternal Grandfather Colon polyps Paternal Grandfather Family Status - Relation Status Age at Maternal Grandfather Alive Paternal Grandfather Alive Level of Service:65258 [place] OFFICE/OUTPATIENT ESTABLISHED HIGH MDM 40 MIN (57) Reason for Visit and Comments: Follow-up [676054] - [facility] CenterThyrotropin [Units/volume] in Serum or PlasmaOrdered By: Michele Peterson on 40-96-9841ABH Qn1.47 m[IU]/LNormal0.45-5.33[facility]ita Health SystemComment on above:Result Comment: PERFORMED BY: [place] [id number] PATHOLOGIST FORMATION FRACTURING OPERATOR QUIN ALBRIGHT M.D.Performed By: #### T4T, T3T, TSH3 #### [place] [address] USAThyroxine (T4) [Mass/volume] in Serum or PlasmaOrdered By: Michele Peterson on 49-50-7832S4 [Mass/Vol]9.72 ug/dLNormal5.39-11.82[facility] Health SystemComment on above:Performed By: #### T4T, T3T, TSH3 #### [facility] [address] [id number] USATriiodothyronine (T3) Totalon 97-41-0104Mixvquxqntihagjn (T3) Total0.91 ng/mLNormal0.87-1.78The [facility] Physician GroupComment on above:Performed By: #### T4T, T3T, TSH3 #### [facility] [address] [id number] USATriiodothyronine (T3) [Mass/volume] in Serum or Plasma Ordered By: Michele Peterson on 36-67-5748T3 [Mass/Vol]0.91 ng/mL0.87-1.78 [facility] SystemOrders Onlyon 21-92-1322Pjhbjp [id number] Quyen Lewis 1990 F Date Provider Department Center 07/07/2025 07679-AUNMQNESQMARISSA BERMUDEZ* [facility] Family History Problem Relation Age of Onset Esophageal cancer Maternal Grandfather Stomach cancer Maternal Grandfather Alcohol abuse Paternal Grandfather Hypertension Paternal Grandfather Heart attack Paternal Grandfather Colon polyps Paternal Grandfather Family Status - Relation Status Age at Maternal Grandfather Alive Paternal Grandfather AliveNormalUniversity of Ut Health East [facility] Athens HospitalOrders Onlyon 85-78-2040Aakatl [id number] Quyen Lewis 1990 F Date Provider Department Center 07/05/2025 [id number], HISTORICAL [facility] Family History Problem Relation Age of Onset Esophageal cancer Maternal Grandfather Stomach cancer Maternal Grandfather Alcohol abuse Paternal Grandfather Hypertension Paternal Grandfather Heart attack Paternal Grandfather Colon polyps Paternal Grandfather Family Status - Relation Status Age at Maternal Grandfather Alive Paternal Grandfather AliveNormalUniversity of Ut Health [facility] Athens HospitalNM GASTRIC EMPTYINGon 54-01-7003YZ GASTRIC EMPTYINGEXAM: GASTRIC EMPTYING 07/02/2025 02:47:00 PM TECHNIQUE: RADIOPHARMACEUTICAL: [...] is noted. IMPRESSION: 1. Delayed gastric emptying. Interpreted by: Rajinder Miramontes MD Signed by: Rajinder Miramontes MD 07/02/25 Final resultNormalMerStamford Hospital Stomach Views for gastric emptying W radionuclide Samy . Delayed gastric emptying. [facility] BERTA JEFFERSONEXAM: GASTRIC EMPTYING 07/02/2025 02:47:00 PM TECHNIQUE: RADIOPHARMACEUTICAL: [...] significant reflux or esophageal retention is noted. [facility] Rajinder Esparza MD - 07/02/2025 EXAM: GASTRIC EMPTYING 07/02/2025 [...] is noted. IMPRESSION: 1. Delayed gastric emptying. [facility] ([facility] Stomach Views for gastric emptying W radionuclide POOrdered By: Rajinder Miramontes on [id number] [facility] Work Phone: [phone] [phone] calls stating that she is getting her Gastric Emptying Study done at [facility]. Ilana stated that ordering physician would need to get PA for services. Per [place] [employer] Prior Auth Cardiology Physician Assistant - No authorization is needed. Information printed and faxed to Ilana Miranda at [phone] with patient being made aware of this informationNormalUniversity of Ut Health East Texas Athens HospitalOrders Onlyon 78-52-6958Iidvur [id number] Quyen Lewis 1990 F Date Provider Department Center 06/30/2025 [id number], HISTORICAL MP GI Medical Pavi Family History Problem Relation Age of Onset Esophageal cancer Maternal Grandfather Stomach cancer Maternal Grandfather Alcohol abuse Paternal Grandfather Hypertension Paternal Grandfather Heart attack Paternal Grandfather Colon polyps Paternal Grandfather Family Status - Relation Status Age at Maternal Grandfather Alive Paternal Grandfather AliveNormalUniversity of Ut Health East Texas Athens HospitalFecal Panc Elastaseon 47-14-8366Hlmylqcwvs Elastase>800Normal>=100[facility] Comment on above:Result Comment: (NOTE) REFERENCE INTERVAL: Pancreatic Elastase Fecal by Immunoassay Less than 100 ug/g............Severe insufficiency 100 - 199 ug/g................Moderate insufficiency 200 ug/g or greater...........Normal INTERPRETIVE INFORMATION: Pancreatic Elastase Fecal by Immunoassay Reference intervals do not apply for infants less than one month old. Performed By: [facility] [address] [place] [address] Ordnance Keeper: Yuriy Cardenas MD, PhD CLIA Number: [id number] By: #### RONEY OLIVEIRA #### [facility] [address] [place] [address] Model Maker Scale: Julio C Patino MDOffice Visiton 48-42-3902Pndupe-up [id number] Quyen Lewis 1990 F Date Provider Department Center 06/29/2025 22488-WDTTMXRZYMARISSA BERMUDEZ*MP GI Medical Pavi Family History Problem Relation Age of Onset Esophageal cancer Maternal Grandfather Stomach cancer Maternal Grandfather Alcohol abuse Paternal Grandfather Hypertension Paternal Grandfather Heart attack Paternal Grandfather Colon polyps Paternal Grandfather Family Status - Relation Status Age at Maternal Grandfather Alive Paternal Grandfather Alive Level of Service:37235 [place] OFFICE/OUTPATIENT ESTABLISHED HIGH MDM 40 MIN Reason for Visit and Comments: Follow-up [224542] Nausea [70] Anemia [129651]NormalUniversity Hospitals Geneva Medical CenterFecal Fat, Randomon 16-13-9542Aowof Neutral FatNormalNormalNormHonorHealth John C. Lincoln Medical Centercy Mississippi Baptist Medical CenterComment on above:Performed By: #### TEE, AFFRAN #### [facility] [address] [place] [id number] Model Maker Scale: Julio C Patino MDFecal Split FatNormalOur Lady of Mercy [facility] - Anderson on above:Result Comment: (NOTE) INTERPRETIVE INFORMATION: Fecal Fat Qualitative Neutral fats include the monoglycerides, diglycerides, and triglycerides while split fats are the free fatty acids that are liberated from them. Impaired synthesis or secretion of pancreatic enzymes or bile may cause an increase in neutral fats while an increase in split fats suggests impaired absorption of nutrients. Performed By: [facility] [address] [id number] Ordnance Keeper: Yuriy Cardenas MD, PhD CLIA Number: [id number] By: #### TEE, AFFRAN #### [facility] [address] [place] [address] Model Maker Scale: Ruth Ann Andrade 06-01-2025L Specimen: [id number] Received: 06/02/25 Status: RENO Balderas Num: [id number] Spec Type: Surgical Subm Dr: Michele Peterson DO Tissues: A THYROID - Lobe (RT THYROID LOBE/ ISTHMUS) Procedures: HE/9, Gross/Micro L5, AE1-AE3, CD20, CD3, IHC First AB, IHC Add AB/2 Age/ Patient Sex Location Account Attending Physician Quyen Lewis 35/F [place] [id number] Michele Peterson DO SPEC NUM: [id number] RECD: 06/02/25 STATUS: RENO NAZIACarmencita NUM: [id number] SPEEDY: 06/01/25-[address]: Michele Peterson DO ENTERED: 06/02/25 [facility] DR: Anthony Lam [facility] SPEC TYPE: Surgical DEPT: S ENTERED BY: [id number] RECV BY: [id number] ORDERED: HE/9, Gross/Micro L5, AE1-AE3, CD20, CD3, IHC First AB, IHC Add AB/2 ORDERED: HE/9, Gross/Micro L5, AE1-AE3, CD20, CD3, IHC First AB, IHC Add AB/2 Pathological Diagnosis Right thyroid lobe and isthmus: Severe chronic lymphocytic thyroiditis. 1 lymph node with no evidence of malignancy. Clinical Information Thyroid nodule Gross Description Part A is received in formalin labeled with the patients name, date of , and right thyroid lobe and isthmus is a 7.3 g, right thyroidectomy specimen with 2 detached nodular irregularities, 0.4 and 0.5 cm in greatest dimension. The right thyroid lobe is 4.5 cm superior to inferior, 2 cm medial to lateral, and 1.8 cm anterior to posterior. The lateral aspect of the specimen displays a linear incision, 1.5 cm in length. The inferomedial aspect of the specimen displays a rough and irregular area, 1.2 x 0.6 cm, consistent with fragmented isthmic margin. The remaining capsular surface is oro-pink, membranous, smooth and glistening with focal adhesions on the posterior aspect. The fragmented isthmic margin is inked orange, the remainder of the thyroid is inked black, and the detached nodular irregularities are inked black. Serial sections reveal a oro-pink, well-circumscribed nodule, 1.5 x 1.4 x 3 cm. The nodule is situated 1.5 cm from the fragmented isthmic margin, at the linear incision, and adjacent (less than 0.1 cm) from the Specimen: [id number] Received: 06/02/25 Status: RENO Adam Num: [id number] Spec Type: Surgical Subm Dr: Michele Peterson DO Tissues: A THYROID - Lobe (RT THYROID LOBE/ ISTHMUS) Procedures: HE/9, Gross/Micro L5, AE1-AE3, CD20, CD3, IHC First AB, IHC Add AB/2 Patient: Quyen Lewis [id number] (Continued) Specimen: [id number] Received: 06/02/25 (Continued) Gross Description (Continued) Signed (signature on file) Asa Torres JR, MD 06/04/25 1039 Specimen: [id number] Received: 06/02/25 Status: RENO Balderas Num: [id number] Spec Type: Surgical Subm Dr: Michele Peterson DO Tissues: A THYROID - Lobe (RT THYROID LOBE/ ISTHMUS) Procedures: HE/9, Gross/Micro L5, AE1-AE3, CD20, CD3, IHC First AB, IHC Add AB/2 Patient: Quyen Lewis [id number] (Continued) Specimen: [id number] Received: 06/02/25 (Continued) Gross Description (Continued) anterior, as well as posterior surfaces. The remaining thyroid parenchyma is sanders-oro to pink, fibrous, dull and uniform. The thyroid is entirely submitted progressing from superior to inferior in A1?A8 with the detached nodular irregularity is entirely submitted in A9. (9, ns, [id number])JG Microscopic Description Microscopic examination was completed. Pancytokeratin is negative. CD3 and CD20 highlight polytypic lymphocytes. CPT Codes 53586 66407 56033 x 2 Specimen: [id number] Received: 06/02/25 Status: RENO Balderas Num: [id number] Spec Type: Surgical Subm Dr: Michele Peterson DO Tissues: A THYROID - Lobe (RT THYROID LOBE/ ISTHMUS) Procedures: HE/9, Gross/Micro L5, AE1-AE3, CD20, CD3, IHC First AB, IHC Add AB/2 --- (more content not included)...NormalThe [facility] Physician GroupMR ENTEROGRAPHY W WO CONTRAST AND 3DPPon 97-86-9666XY ENTEROGRAPHY W WO CONTRAST AND 3DPPHistory: Chronic abdominal pain, chronic diarrhea and weight [...] MR enterography. Uterine fibroids. Electronically signed: Clinton Hinojosa.NormalUnCleveland Clinic [facility] Hospital Results Follow-Upon 95-86-0930Nvmzgmw Follow-[id number] Quyen Lewis 1990 F Date Provider Department Center 04/07/2025 69208-DGEMCIVNKMARISSA BERMUDEZ*MP GI Medical Pavi Family History Problem Relation Age of Onset Esophageal cancer Maternal Grandfather Stomach cancer Maternal Grandfather Alcohol abuse Paternal Grandfather Hypertension Paternal Grandfather Heart attack Paternal Grandfather Colon polyps Paternal Grandfather Family Status - Relation Status Age at Maternal Grandfather Alive Paternal Grandfather AliveNormalUniversMcKitrick Hospital SSZRX-5-VYVMFTYSOZHuf 37-57-8038QBSVH-1 HEBRSNKVWXW344 mg/nXNkuvwl38-466 University Hospitals Geneva Medical CenterComment on above:Result Comment: To convert to umol/L, multiply mg/dL by 0.185 Performed By: [facility] [address] [place] [address] Ordnance Keeper: Yuriy Cardenas MD, PhD CLIA Number: [id number] By: #### [id number] ####[facility] (BEAKER)[address] [place] [address]DKXma 54-31-1444SUH PATTERNHomogeneousNormal University Hospitals Geneva Medical CenterComment on above:Performed By: #### [id number] #### [facility] ([facility]) [address] [place], [place] [address]CHU TITER1:40Normal<=1:40UnCleveland Clinic Akron General [facility]odi Hospital Comment on above:Result Comment: Test performed using MOHIT IFA MOISÉS Hep-2 Test, a pre-standardized assay designed forthe qualitative and semi-quantitative detection of antinuclear antibodies.Performed By: #### [id number] #### [facility] ([facility]) [address] [place], [place] [address]PXSX-ZKOTWW MUSCLE ANTIBODY TITERon 30-56-5523ZIMCOS MUSCLE AB, IGG TITER<1:20Normal<1:20UnCleveland Clinic Akron General Lodi HospitalComment on above: Result Comment: INTERPRETIVE INFORMATION: Smooth Muscle Ab, IgG Titer Less than 1:20 ........ Negative - No antibody detected. 1:20 - 1:80 .......... Weak Positive - Suggest repeat in two to three weeks with fresh specimen. 1:160 or greater ...... Positive - Suggestive of autoimmune hepatitis or chronic active hepatitis. Performed By: [facility] [address] [place] [address] Ordnance Keeper: Yuriy Cardenas MD, PhD CLIA Number: [id number] By: #### [id number] ####[facility] ([facility])[address], [place] [address]N-BLFZHFGE PROTEINon 04-06-2025 REACTIVE PROTEIN (MG/L) IN SER/PLAS<5.5High<=5.0UnCleveland Clinic [facility] Comment on above:Result Comment: Testing performed using a new methodology, turbidimetry. Normal ranges have been updated. Old normal range was <8 mg/L. Performed By: #### [id number] #### [facility] ([facility]) [address] [place], [place] [address]SKYce 26-55-8677Zvxvknrbpfo distribution width (RBC) [Ratio]14.1 %Nuqmcx00.5-15.0UnCleveland Clinic Akron General Lodi HospitalComment on above:Performed By: #### [id number] ####[facility] ([facility])[address] [place] [address] ERYTHROCYTE MEAN CORPUSCULAR HEMOGLOBIN CONCENTRATION (G/DL) BY SAQPCSPOP45.2 g/fPXrfjaz63.0-35.0UnCleveland Clinic Ak[facility] General Lodi HospitalComment on above:Performed By: #### [id number] ####[facility] ([facility])[address] [place], [place] [address]Kexqzmnkck (Bld) [Volume fraction]37.1 %Tertfs73.0-45.0UnCleveland Clinic Akron General Lodi HospitalComment on above:Performed By: #### [id number] ####[facility] ([facility])[address] [place], [place] [address]Pwmqdxqvlu (Bld) [Mass/Vol]12.7 g/dL Pylpva88.0-15.0UnCleveland Clinic Ak[facility] General [facility]odi HospitalComment on above:Performed By: #### [id number] ####[facility] ([facility])[address] [place] [address]HYL (RBC) [Entitic mass]26.6 pgLow27.0-33.0UnCleveland Clinic [facility] Comment on above:Performed By: #### [id number] ####[facility] ([facility])[address] [place] [address]XMI (RBC) [Entitic vol]77.6 fLLow82.0-98.0 University Hospitals Geneva Medical CenterComment on above:Performed By: #### [id number] ####[facility] ([facility])[address] [place] [address]JUBJMFWMR (10*3/UL) IN BLOOD AUTOMATED GRWCR481 10*3/zIOpjfky175-528RrbdzaysawCleveland Clinic Akron General Lodi HospitalComment on above:Performed By: #### [id number] ####[facility] (BEAKER)[address] [place] [address]PGE (Bld) [#/Vol]4.78 10*6/uLNormal 3.80-5.00UnCleveland Clinic [facility]odi HospitalComment on above:Performed By: #### [id number] ####[facility] ([facility])[address] [place], [place] [address]SMI (Bld) [#/Vol]5.64 10*3/uLNormal4.00-10.60UnCleveland Clinic [facility]odi HospitalComment on above:Performed By: #### [id number] ####[facility] ([facility])[address] [place], [place] [address]LWBBQLV FUNCTION PANELon 75-74-6301Ycwadlw [Mass/Vol]4.8 g/dL Normal3.5-5.7UnCleveland Clinic [facility]odi HospitalComment on above:Performed By: #### [id number] #### [facility] ([facility]) [address] [place], [place] [address]KWN [Catalytic activity/Vol]55 U/BZvilhn17-708NtlnddqgwrCleveland Clinic Akron General Lodi HospitalComment on above:Performed By: #### [id number] #### [facility] ([facility]) [address] [place], [place] [address]WBO [Catalytic activity/Vol]50 U/LNormal7-52UnCleveland Clinic [facility] General [facility]odi HospitalComment on above:Performed By: #### [id number] #### [facility] ([facility]) [address] [place], [place] [address]VFV [Catalytic activity/Vol]41 U/OKrpe84-84EqqehgbehzCleveland Clinic Akron General Lodi HospitalComment on above:Performed By: #### [id number] #### [facility] ([facility]) [address] [place], [place] [address]Whitdpivs [Mass/Vol]0.4 mg/dLNormal0.3-1.0UnCleveland Clinic [facility] HospitalComment on above:Performed By: #### [id number] #### [facility] ([facility]) [address] [place], [place] [address]Nfptkqlkm [Mass/Vol]0.1 mg/dLNormal0-0.2UnCleveland Clinic [facility]odi HospitalComment on above:Performed By: #### [id number] #### [facility] ([facility]) [address] [place], [place] [address]Apwmtjj [Mass/Vol]7.4 g/dLNormal6.0-8.3University Hospitals Geneva Medical CenterComment on above:Performed By: #### [id number] #### [facility] ([facility]) [address] [place], [place] [address]XIZSNNHSB B CORE ANTIBODY, TOTALon 10-52-9624OOTCEKNMV B VIRUS CORE AB (PRESENCE) IN SER/PLAS BY IMMNon-ReactiveACMC Healthcare System GlenbeighComment on above:Performed By: #### [id number] #### [facility] ([facility]) [address] [place], [place] [address]VXJQKHUUT B SURFACE ANTIBODY QUANTon 57-43-2512HPQDZUXFC B VIRUS SURFACE AB (MIU/ML) IN UTVKO246.71 mIU/mLNormalUnCleveland Clinic [facility]odi HospitalComment on above:Result Comment: INTERPRETATION: NONREACTIVE <8.00 mIU/mL INDETERMINATE 8.00 - 12.00 mIU/mL REACTIVE >12 mIU/mLPerformed By: #### [id number] #### [facility] ([facility]) [address] [place], [place] [address]IGULUCMNL B SURFACE ANTIGENon 10-66-1752GGZNJIONO B VIRUS SURFACE AG PRESENCE IN SERUMNon-ReactiveNoBanner Gateway Medical CenteractiveUnCleveland Clinic [facility] HospitalComment on above:Performed By: #### [id number] ####[facility] (BEAKER)[address] [place], [place] [address]PBOLGZKWB C ANTIBODYon 59-56-8454XUPFUPEOU C VIRUS AB PRESENCE IN SERUMNon-ReactiveNoWayne HospitalComment on above:Performed By: #### [id number] #### [facility] ([facility]) [address] [place], [place] [address]BNJOL FIBROSIS CHRONIC VIRAL HEPATITISon 04-06-2025 QLGZY-3-CEQOSKINTXLGQ, DEHNSTHFCT983 mg/pAMjgetq323-030JpjicwuduiCleveland Clinic Akron General Lodi HospitalComment on above:Performed By: #### [id number] ####[facility] ([facility])[address], [place] [address]XGO [Catalytic activity/Vol]58 U/LHigh5-40UnCleveland Clinic [facility] General [facility]odi HospitalComment on above:Performed By: #### [id number] ####[facility] ([facility])[address] [place] [address] Amylase [Catalytic activity/Vol]29 U/LNormal7-33UnCleveland Clinic [facility] General Lodi HospitalComment on above:Performed By: #### [id number] ####[facility] ([facility])[address], [place] [address]EVK [Catalytic activity/Vol]52 U/LHigh9-40UnCleveland Clinic [facility] General [facility]odi HospitalComment on above:Performed By: #### [id number] ####[facility] ([facility])[address] [place] [address] CIRRHOMETER PATIENT AZZFW4MtidcnMvllfndgbzMcKitrick HospitalComuniversity of michigan hospital on above:Performed By: #### [id number] ####[facility] ([facility])[address], [place] [address]AOL FIBROMETER REPORTSee NoteNormalUniLima City HospitalComuniversity of michigan hospital on above:Result Comment: Authorized individuals can access the [facility] Enhanced Report with an [facility] account using the following link. Your local lab can assist you in obtaining the patient report if you don't have a Connect account. [email or web address] By: #### [id number] ####[facility] ([facility])[address], [place] [address]LMMAKKBEHN INTERPRETATIONSee ReportNormalUniversMcKitrick HospitalComuniversity of michigan hospital on above:Result Comment: [17] [11] INTERPRETIVE INFORMATION: Fibrometer Interpretation Calculations for the final report are based on accurate data for age, gender, and platelet count. If any of this information needs to be corrected, please contact [facility] Client Services to request a recalculation. Client Services may be contacted at . The Echosens FibroMeter profile serves as a surrogate marker of liver fibrosis, cirrhosis, and necro-inflammatory activity. A proprietary algorithm calculates and compares results from 7 blood markers along with age and gender to provide a patient score (from 0 to 1) and a correlated fibrosis stage (Metavir F0-F4) and activity grade (Metavir A0-A3). The fibrosis/cirrhosis score is further evaluated by a rules-based system to detect anomalous profile results which may modify the fibrosis/cirrhosis score as needed. Results should be interpreted in conjunction with the patient's clinical history; particularly when the rules-based system has modified the scores. Legend: -Metavir is a histological scoring system for determining the extent of liver fibrosis and inflammation. STAGE OF FIBROSIS (F scale) F0 = no fibrosis F1 = portal fibrosis without septa F2 = portal fibrosis with few septa F3 = numerous septa without cirrhosis F4 = cirrhosis GRADE OF NECRO-INFLAMMATORY ACTIVITY (A scale) A0 = no activity A1 = mild activity A2 = moderate activity A3 = severe activity -Platelet count result provided by client. -The Prothrombin Index test expresses the Prothrombin Time (PT) as a percentage of normal, and is used to standardize PT results across different instrument/reagent combinations. This test was developed and its performance characteristics determined by [facility]. It has not been cleared or approved by the [place] Food and Drug Administration. This test was performed in a CLIA certified laboratory and is intended for clinical purposes. Performed By: [facility] [address] [place] [address] Ordnance Keeper: Yuriy Cardenas MD, PhD CLIA Number: [id number] By: #### [id number] ####[facility] ([facility])[address], [place] [address]KAFIJPGRZD PATIENT SCORE0.07 NormalUniversity Hospitals Geneva Medical CenterComment on above:Performed By: #### [id number] ####[facility] ([facility])[address] [place] [address] FIBROMETER PLATELET [id number] k/uLNormalUniLima City Hospital Comment on above:Performed By: #### [id number] ####[facility] ([facility])[address], [place] [address]ZNWLFHVLKM PROTHROMBIN LYOPO337 %Xqsfgs84-861 [facility] Medical CenterComment on above:Performed By: #### [id number] ####[facility] ([facility])[address], [place] [address]ZMOZEJJR METAVIR CLASSIFICATIONF0/L1TqrvvvInsvwilwxvMcKitrick HospitalComment on above:Result Comment: INTERPRETIVE INFORMATION: Fibrosis Metavir Classification FibroMeter (fibrosis score) comments F0/F1 Equal probability between F0 and F1 F1[F1-F2] Predominance of F1, but F2 is possible F2[F1-F2] Predominance of F2, but F1 is possible F2[F1-F3] Predominance of F2, but F1 and F3 are possible F2/F3 Equal probability between F2 and F3 F3[F2-F4] Predominance of F3, but F2 and F4 are possible F3[F3-F4] Predominance of F3, but F4 is possible F4[F3-F4] Predominance of F4, but F3 is possiblePerformed By: #### [id number] ####[facility] ([facility])[address], [place] [address]BMJKWXZHIH METAVIR CLASSIFICATIONA0/V8RfucnuJhewupqbfgMcKitrick HospitalComment on above:Result Comment: INTERPRETIVE INFORMATION: InflaMeter Metavir Classification InflaMeter (activity score) comments A0/A1 Equal probability between A0 and A1 A1/A2 Equal probability between A1 and A2 A2/A3 Equal probability between A2 and H3Banudrusd By: #### [id number] ####[facility] ([facility])[address], [place] [address]DWDCSCLETK PATIENT SCORE0.18NormalUniversMcKitrick HospitalComment on above:Performed By: #### [id number] ####[facility] ([employer])[address] [place] [address] Urea nitrogen [Mass/Vol]14 mg/dLNoal7-[facility] Comment on above:Performed By: #### [id number] ####[facility] ([facility])[address], [place] [address]Jpnms [id number] Quyen Lewis 1990 F Date Provider Department [place] 04/06/20255-[facility]PD LAB RESOURCE [facility] [place] [facility] Family History Problem Relation Age of Onset Esophageal cancer Maternal Grandfather Stomach cancer Maternal Grandfather Alcohol abuse Paternal Grandfather Hypertension Paternal Grandfather Heart attack Paternal Grandfather Colon polyps Paternal Grandfather Family Status - Relation Status Age at Maternal Grandfather Alive Paternal Grandfather AliveNormalUniLima City HospitalMITOCHONDRIAL ANTIBODIES, M2on 90-38-0455XGVPVCKIFRPKI M2 ANTIBODY2.8 UnitsNormal0.0-24.9 [facility] Medical CenterComment on above:Result Comment: REFERENCE INTERVAL: Mitochondrial (M2) Antibody, IgG 20.0 Units or less ......... Negative 20.1 - 24.9 Units........... Equivocal 25.0 Units or greater....... Positive Anti-mitochondrial antibodies (AMA) are thought to be present in 90-95% of patients with primary biliary cholangitis (PBC). However, the frequency of detected antibodies may be cohort or assay dependent, as lower sensitivities have been reported. Not all PBC patients are positive for AMA; some patients may be positive for SP100 and/or GP210 antibodies. A negative result does not rule out PBC. Performed By: [facility] [address] [place] [address] Ordnance Keeper: Yuriy Cardenas MD, PhD CLIA Number: [id number] By: #### [id number] ####[facility] ([facility])[address], [place] [address]Rratdl Visiton 65-21-3411Fidple-up visit [id number] Quyen Lewis 1990 F Date Provider Department Center 04/06/2025 [address]-UAJLKJUJRMARISSA BERMUDEZ*MP GI Medical Pavi Family History Problem Relation Age of Onset Esophageal cancer Maternal Grandfather Stomach cancer Maternal Grandfather Alcohol abuse Paternal Grandfather Hypertension Paternal Grandfather Heart attack Paternal Grandfather Colon polyps Paternal Grandfather Family Status - Relation Status Age at Maternal Grandfather Alive Paternal Grandfather Alive Level of Service:[address]64 [place] OFFICE/OUTPATIENT ESTABLISHED HIGH MDM 40 MIN Reason for Visit and Comments: Follow-up [784258] Abdominal Pain [426133]NormalUnCleveland Clinic Akron General Lodi HospitalPROTIME-INRon 02-91-7700FYC IN PPP BY COAGULATION ASSAY0.87Qeuqzg9.90-1.10UnCleveland Clinic Akron General Lodi HospitalComment on above:Result Comment: ACC RECOMMENDED INR FOR WARFARIN THERAPY CONDITION INR PROPHYLAXIS OF VENOUS THROMBOSIS 2-3 (HIGH-RISK SURGERY) TREATMENT OF VENOUS THROMBOSIS 2-3 TREATMENT OF PULMONARY EMBOLISM 2-3 PREVENTION OF SYSTEMIC EMBOLISM: 2-3 ACUTE MYOCARDIAL INFARCTION TISSUE HEART VALVES VALVULAR HEART DISEASE ATRIAL FIBRILLATION RECURRENT SYSTEMIC EMBOLISM MECHANICAL HEART VALVE 2.5-3.5 FROM: ORAL ANTICOAGULANTS. MECHANISM OF ACTION, CLINICAL EFFECTIVENESS, AND OPTIMAL THERAPEUTIC RANGE. CHEST 1995;108:231S-246S.Performed By: #### [id number] #### [facility] ([facility] HOSPITAL) [address] [place], [place] [address]SSENAHBGQOF TIME (PT) IN PPP BY COAGULATION ASSAY12.2 SecondsLow 12.3-14.8UnCleveland Clinic Akron General Lodi HospitalComment on above:Performed By: #### [id number] #### [facility] ([facility]) [address] [place], [place] [address]Ubxbu Metab w/rfx MGon 66-64-9916Yyozm gap [Moles/Vol]13 mmol/L Normal9-16[facility] CompanyComment on above:Performed By: #### MG JONATHAN, BMPX #### [facility] [address] [place] [address] Model Maker Scale: Pavan Davis MDBUN/CRE Prnap79Syguli6-45Iaqng [facility] Comment on above:Performed By: #### MG JONATHAN, BMPX #### [address] [place], [place] [id number] Model Maker Scale: DELMI Batesalcium [Mass/Vol]8.6 mg/dLNormal8.6-10.4[facility] CompanyComment on above:Performed By: #### CDP, MG, BMPX #### [address] [place], [place] [id number] Model Maker Scale: DELMI Bateshloride [Moles/Vol]104 mmol/SGktjyk78-688XrnudRegency Hospital CompanyComment on above:Performed By: #### CDP, MG, BMPX #### [address] [place], [place] [address]83 Model Maker Scale: Pavan Davis MDCO2 [Moles/Vol]23 mmol/HPvpzrd60-71ByvfzRegency Hospital CompanyComment on above:Performed By: #### CDP, MG, BMPX #### [address] [place], [place] [id number] Model Maker Scale: DELMI Batesreatinine [Mass/Vol]0.6 mg/dLNormal0.50-0.90[facility] CompanyComment on above:Performed By: #### CDP, MG, BMPX #### [address] [place] [id number] Model Maker Scale: Pavan Davis MDGFR/1.73 sq M.predicted among non-blacks MDRD (S/P/Bld) [Vol rate/Area]mL/min/{1.73_m2}Normal>60MerThe Hospital of Central ConnecticutComment on above:Result Comment: These results are not intended for [...] or following therapy that affects renal tubular secretion.Performed By: #### CDP, MG, BMPX #### [address] [place] [address] Model Maker Scale: Pavan Davis MDGlucose [Mass/Vol]83 mg/qBGhpizn89-32PcbylSelect Medical OhioHealth Rehabilitation HospitalComment on above:Performed By: #### CDP, MG, BMPX #### [address] [place], [place] 3946083 Model Maker Scale: BEN Batesotassium [Moles/Vol]3.0 mmol/LLow3.7-5.3MSelect Medical OhioHealth Rehabilitation HospitalComment on above:Performed By: #### CDP, MG, BMPX #### [address] [place] [address] Model Maker Scale: DARSHANA Batesodium [Moles/Vol]140 mmol/RYeuhjf990-465DzazuRegency Hospital CompanyComment on above:Performed By: #### CDP, MG, BMPX #### [address] [place] [address] Model Maker Scale: Pavan Davis MDUrea nitrogen [Mass/Vol]10 mg/dLNormal6-20[facility] CompanyComment on above:Performed By: #### CDP, MG, BMPX #### [address] [place] [address] Model Maker Scale: Darshana Batessaint joseph [place] Metabolic Panel w/ Reflex to MGon 02-14-2025 Anion gap [Moles/Vol]13 mmol/L9 - 16 mmol/LBon Secours Mercy HealthCalcium [Mass/Vol]8.6 mg/dL8.6 - 10.4 mg/dLBon Secours Mercy HealthChloride [Moles/Vol] 104 mmol/L98 - 107 mmol/LBon Secours Mercy HealthCO2 [Moles/Vol]23 mmol/L20 - 31 mmol/LBon Secours [facility]cy HealthCreatinine [Mass/Vol]0.6 mg/dL0.50 - 0.90 mg/dL Bon SecMary Bridge Children's Hospitaly HealthEst, Glom Filt Rate- PINFBon SecPremier Health Upper Valley Medical CenterComment on above: These results are not intended [...] therapy that affects renal tubular secretion. Glucose [Mass/Vol]83 mg/dL74 - 99 mg/dLBon [facility] Presbyterian HealthInterpretation and review of laboratory resultsAbnormalBon [facility]ours [facility] Hospitaly HealthPotassium [Moles/Vol]3 mmol/LLow3.7 - 5.3 mmol/LBon SecAbbeville General Hospital HealthSodium [Moles/Vol] 140 mmol/L136 - 145 mmol/LBon SecAbbeville General Hospital HealthUrea nitrogen [Mass/Vol]10 mg/dL6 - 20 mg/dLBon SecMary Bridge Children's Hospitaly HealthUrea nitrogen/Creatinine [Mass ratio]17 mg/mg9 - 20Bon [facility] Hospitaly HealthBon SecPremier Health Upper Valley Medical CenterCBC auto differential on 73-87-6800Sacmiftwg (Bld) [#/Vol]0.03 10*3/uLBon Secours [facility] Bluff[facility] Hospitaly Health Basophils/100 WBC (Bld)1 %0 - 2 %[facility] Hospitaly HealthEosinophils (Bld) [#/Vol]0.09 10*3/uLBon Secours Mercy HealthEosinophils/100 WBC (Bld)2 %1 - 4 % [facility] HealthErythrocyte distribution width (RBC) [Ratio]13.1 %11.8 - 14.4 %[facility] HealthHematocrit (Bld) [Volume fraction]35.8 %Low36.3 - 47.1 %[facility] HealthHemoglobin (Bld) [Mass/Vol]12.5 g/dL11.9 - 15.1 g/dLBon Secours [facility] Hospitaly [facility] HospitalImmature granulocytes (Bld) [#/Vol][facility] HealthImmature granulocytes/100 WBC (Bld)0 %0Bon [facility] Interpretation and review of laboratory resultsAbnormalBon [facility] Lymphocytes/100 WBC (Bld)26 %24 - 43 %[facility] HospitalLymphocytes/100 WBC (Bld)1.5 %[facility] AllianceH (RBC) [Entitic mass]27.7 pg25.2 - 33.5 pgBon Glenbeigh HospitalHC (RBC) [Mass/Vol]34.9 g/oDMdts89.4 - 34.8 g/dLBon SecWyandot Memorial HospitalV (RBC) [Entitic vol]79.4 fLLow82.6 - 102.9 fLRiverside Walter Reed HospitalMonocytes/100 WBC (Bld)7 %3 - 12 %[facility] Monocytes/100 WBC (Bld)0.42 %[facility] HospitalNeutrophils/100 WBC (Bld)64 %36 - 65 %[facility] HospitalNucleated RBC/100 WBC (Bld) [Ratio]0 %0.0 per 100 WBCRiverside Walter Reed HospitalPlatelet mean volume (Bld) [Entitic vol]9.8 fL8.1 - 13.5 fLRiverside Walter Reed HospitalPlatelets (Bld) [#/Vol]268 10*3/uLBon [facility] CampusRBC (Bld) [#/Vol]4.51 10*6/uL3.95 - 5.11 m/uLRiverside Walter Reed HospitalSegmented neutrophils/100 WBC (Bld)3.71 %[facility] HospitalWBC other (Bld) [#/Vol]5.8Bon [facility] SchoolCBC with Diffon [id number]. Basophil0.03 k/uLNormal0.00-0.20[facility] CompanyComment on above:Performed By: #### CDP, MG, BMPX #### [facility] [address] [place] [address] Model Maker Scale: Selina Bates.Imm.Granulocyte<0.20Euibgw5.00-0.30[facility] CompanyComment on above:Performed By: #### CDP, MG, BMPX #### [address] [place] [address] Model Maker Scale: Selina Bates.Neutrophil (Seg)3.71 k/uLNormal1.50-8.10[facility] CompanyComment on above:Performed By: #### CDP, MG, BMPX #### [address] [place], [place] [address] Model Maker Scale: Pavan Davis MDBasophils/100 WBC (Bld)1 %Normal0-2MSelect Medical OhioHealth Rehabilitation HospitalComment on above:Performed By: #### CDP, MG, BMPX #### [address] [place] [address] Model Maker Scale: Pavan Davis MDEosinophils (Bld) [#/Vol]0.09 10*3/uLNormal 0.00-0.44[facility] HospitalComment on above:Performed By: #### CDP, MG, BMPX #### [address] [place], [place] [address] Model Maker Scale: Pavan Davis MDEosinophils/100 WBC (Bld)2 %Normal1-4[facility] CompanyComment on above:Performed By: #### CDP, MG, BMPX #### [address] [place], [place] [address] Model Maker Scale: Pavan Davis MDImmature granulocytes/100 WBC (Bld)0 %Ujxoyl8Lpuag [facility]iffin HospitalComment on above:Performed By: #### CDP, MG, BMPX #### [address] [place] [id number] Model Maker Scale: Pavan Davis MDLymphocytes (Bld) [#/Vol]1.50 10*3/uLNormal 1.10-3.70[facility] CompanyComment on above:Performed By: #### CDP, MG, BMPX #### [address] [place] [address] Model Maker Scale: Pavan Davis MDLymphocytes/100 WBC (Bld)26 %Tzghtg43-72QznkpRegency Hospital CompanyComment on above:Performed By: #### CDP, MG, BMPX #### [address] [place] [address] Model Maker Scale: AFSHAN Batesonocytes (Bld) [#/Vol]0.42 10*3/uLNormal0.10-1.20 [facility] CompanyComuniversity of michigan hospital on above:Performed By: #### CDP, MG, BMPX #### [address] [place] [address] Model Maker Scale: AFSHAN Batesonocytes/100 WBC (Bld)7 %Normal3-12[facility] HospitalComment on above:Performed By: #### CDP, MG, BMPX #### [address] [place] [address] Model Maker Scale: Pavan Davis MDNeutrophil (Seg)64 %Rmpfyd10-70NleviRegency Hospital CompanyComment on above:Performed By: #### CDP, MG, BMPX #### [address] [place] [address] Model Maker Scale: Pavan Davis MDErythrocyte distribution width (RBC) [Ratio]13.1 % Yzskts62.8-14.4[facility] CompanyComment on above:Performed By: #### CDP, MG, BMPX #### [address] [place] 3101483 Model Maker Scale: Pavan Davis MDHematocrit (Bld) [Volume fraction]35.8 %Low 36.3-47.1MSelect Medical OhioHealth Rehabilitation HospitalComment on above:Performed By: #### CDP, MG, BMPX #### [address] [place] [address] Model Maker Scale: Pavan Davis MDHemoglobin (Bld) [Mass/Vol]12.5 g/dLNormal 11.9-15.1MRegency Hospital Cleveland East HospitalComment on above:Performed By: #### CDP, MG, BMPX #### [address] [place], [place] 3655983 Model Maker Scale: AFSHAN BatesCH (RBC) [Entitic mass]27.7 nnAwzxhb64.2-33.5 [facility] CompanyComment on above:Performed By: #### CDP, MG, BMPX #### [address] [place], [place] 1091083 Model Maker Scale: MARTIN BatesC (RBC) [Mass/Vol]34.9 g/xGZaji66.4-34.8[facility] CompanyComment on above:Performed By: #### CDP, MG, BMPX #### [address] [place], [place] 5268683 Model Maker Scale: AFSHAN BatesCV (RBC) [Entitic vol]79.4 fLLow82.6-102.9[facility] CompanyComment on above:Performed By: #### CDP, MG, BMPX #### [address] [place], [place] 9502783 Model Maker Scale: Pavan Davis MDNRBC Automated0.0 per [address] HospitalComment on above:Performed By: #### CDP, MG, BMPX #### [address] [place], [place] [id number] Model Maker Scale: BEN Bateslatelet mean volume (Bld) [Entitic vol]9.8 fL Normal8.1-13.5[facility] HospitalComment on above:Performed By: #### CDP, MG, BMPX #### [address] [place], [place] [address] Model Maker Scale: Re Bates ([facility]) [#/Vol]268 10*3/mAEqkxtb985-[address] [facility] HospitalComment on above:Performed By: #### CDP, MG, BMPX #### [address] [place], [facility]83 Model Maker Scale: QUE Bates ([facility]) [#/Vol]4.51 10*6/uLNormal3.95-5.11[facility] HospitalComment on above:Performed By: #### CDP, MG, BMPX #### [address] [place], [place] [address] Model Maker Scale: JEFFERY Bates ([facility]) [#/Vol]5.8 10*3/uLNormal3.5-11.3MRegency Hospital Cleveland East HospitalComment on above:Performed By: #### CDP, MG, BMPX #### [address] [place], [facility]83 Model Maker Scale: BROOKS Bates (Potassium)on 11-41-8279Gtgbbbdzc [Moles/Vol]3.7 mmol/LNormal3.7-5.3Mer[facility] Goessel HospitalComment on above:Performed By: #### K #### [address] [place], [place] [id number] Model Maker Scale: Leonard Batesgnesiumon 81-61-1927Gznrdbigj [Mass/Vol]1.8 mg/dL1.6 - 2.6 mg/dLBon [facility] CampusBon SecPremier Health Upper Valley Medical CenterMagnesium [Mass/Vol]1.8 mg/dLNormal1.6-2.6Mercy Goessel HospitalComment on above:Performed By: #### CDP, MG, BMPX #### [facility] [address] [place] [address] Model Maker Scale: BEN Batesotassiumon 25-10-4215Kvsrvufdb [Moles/Vol]3.7 mmol/L3.7 - 5.3 mmol/LBon Secours Mayo Clinic Health System– ArcadiaCBC with Auto Differentialon 22-04-2152Kbfcnndpm (Bld) [#/Vol]0.04 10*3/uLBon Secours Ohiohealth Berger HospitalBasophils/100 WBC (Bld)0 %0 - 2 %[facility] HospitalEosinophils (Bld) [#/Vol]0.09 10*3/uLBon Secours Ohiohealth Berger HospitalEosinophils/100 WBC (Bld)1 %1 - 4 %[facility] HospitalErythrocyte distribution width (RBC) [Ratio]12.9 % 11.8 - 14.4 %[facility] HospitalHematocrit (Bld) [Volume fraction]42 %36.3 - 47.1 %[facility] HospitalHemoglobin (Bld) [Mass/Vol]14.5 g/dL11.9 - 15.1 g/dLBon [facility] CampusImmature granulocytes (Bld) [#/Vol]0.05 10*3/uLBon [facility] CampusImmature granulocytes/100 WBC (Bld)1 %Kzen2Zcn [facility] CampusInterpretation and review of laboratory resultsAbnormalBon [facility] CampusLymphocytes/100 WBC (Bld)26 %24 - 43 %[facility] Lymphocytes/100 WBC (Bld)2.52 %[facility] AllianceH (RBC) [Entitic mass] 27.4 pg25.2 - 33.5 pgBon [facility]beigh HospitalHC (RBC) [Mass/Vol]34.5 g/dL28.4 - 34.8 g/dLBon SecWyandot Memorial HospitalV (RBC) [Entitic vol]79.2 fLLow82.6 - 102.9 fLRiverside Walter Reed HospitalMonocytes/100 WBC (Bld)7 %3 - 12 %[facility] HospitalMonocytes/100 WBC (Bld)0.67 %[facility] HospitalNeutrophils/100 WBC (Bld)65 %36 - 65 %[facility] HospitalNucleated RBC/100 WBC (Bld) [Ratio]0 % 0.0 per 100 WBCRiverside Walter Reed HospitalPlatelet mean volume (Bld) [Entitic vol] 10 fL8.1 - 13.5 fLBon [facility] CampusPlatelets (Bld) [#/Vol]372 10*3/uLBon [facility] CampusRBC (Bld) [#/Vol]5.3 10*6/uLHigh3.95 - 5.11 m/uLRiverside Walter Reed HospitalSegmented neutrophils/100 WBC (Bld)6.48 %[facility] HospitalWBC other (Bld) [#/Vol]9.9Bon [facility] SchoolCBC with Diffon 40-56-3249Zki. Basophil0.04 k/uLNormal0.00-0.20[facility] Comment on above:Performed By: #### LINDA ROMERO, CDP #### [address] [place] [address] Model Maker Scale: Selina Bates.Imm.Granulocyte0.05 k/uLNormal0.00-0.30[facility] CompanyComment on above:Performed By: #### NICK LIP, CDP #### [address] [place] [id number] Model Maker Scale: Selina Bates.Neutrophil (Seg)6.48 k/uLNormal1.50-8.10[facility] CompanyComment on above:Performed By: #### NICK LIP, CDP #### [address] [place] [id number] Model Maker Scale: Pavan Davis MDBasophils/100 WBC (Bld)0 %Normal0-2MRegency Hospital Cleveland East HospitalComment on above:Performed By: #### CP, LIP, CDP #### [address] [place] [address] Model Maker Scale: Pavan Davis MDEosinophils (Bld) [#/Vol]0.09 10*3/uLNormal 0.00-0.44[facility] HospitalComment on above:Performed By: #### CP, LIP, CDP #### [address] [place] [address] Model Maker Scale: Pavan Davis MDEosinophils/100 WBC (Bld)1 %Normal1-4[facility] CompanyComment on above:Performed By: #### CP, LIP, CDP #### [address] [place] [address] Model Maker Scale: Pavan Davis MDErythrocyte distribution width (RBC) [Ratio]12.9 % Aglbbt82.8-14.4[facility] HospitalComment on above:Performed By: #### NICK, LIP, CDP #### [address] [place] [address] Model Maker Scale: Pavan Davis MDHematocrit (Bld) [Volume fraction]42.0 %Normal 36.3-47.1MRegency Hospital Cleveland East HospitalComment on above:Performed By: #### CP, LIP, CDP #### [address] [place] [address] Model Maker Scale: Pavan Davis MDHemoglobin (Bld) [Mass/Vol]14.5 g/dLNormal 11.9-15.1MRegency Hospital Cleveland East HospitalComment on above:Performed By: #### CP, LIP, CDP #### [address] [place] [id number] Model Maker Scale: Pavan Davis MDImmature granulocytes/100 WBC (Bld)1 %Ewkq8VdaxxRegency Hospital CompanyComment on above:Performed By: #### CP, LIP, CDP #### [address] [place], [place] [id number] Model Maker Scale: Ino Batesmphocytes (Bld) [#/Vol]2.52 10*3/uLNormal 1.10-3.70[facility] CompanyComment on above:Performed By: #### NICK, LIP, CDP #### [address] [place], [place] 1509483 Model Maker Scale: Noelle Bateshocytes/100 WBC (Bld)26 %Eikjvo98-53TtbzpRegency Hospital CompanyComment on above:Performed By: #### CP, LIP, CDP #### [address] [place] [address] Model Maker Scale: AFSHAN BatesCH (RBC) [Entitic mass]27.4 urPurmbp87.2-33.5 [facility] CompanyComment on above:Performed By: #### NICK LIP, CDP #### [address] [place], [place] 2801283 Model Maker Scale: AFSHAN BatesCHC (RBC) [Mass/Vol]34.5 g/mQPjjino03.4-34.8[facility] CompanyComment on above:Performed By: #### NICK, LIP, CDP #### [address] [place], [place] [id number] Model Maker Scale: AFSHAN BatesCV (RBC) [Entitic vol]79.2 fLLow82.6-102.9[facility] CompanyComment on above:Performed By: #### CP, LIP, CDP #### [address] [place], [place] [id number] Model Maker Scale: AFSHAN Batesonocytes (Bld) [#/Vol]0.67 10*3/uLNormal0.10-1.20 [facility] CompanyComment on above:Performed By: #### CP, LIP, CDP #### [address] [place] [address] Model Maker Scale: AFSHAN Batesonocytes/100 WBC (Bld)7 %Normal3-12[facility] CompanyComment on above:Performed By: #### NICK, LIP, CDP #### [address] [place], [facility]83 Model Maker Scale: Pavan Davis MDNeutrophil (Seg)65 %Lqoiac98-18SmsqsRegency Hospital CompanyComment on above:Performed By: #### NICK, LIP, CDP #### [address] [place], [facility]83 Model Maker Scale: Pavan Davis MDNRBC Automated0.0 per 100 WBCNormal0.0[facility] CompanyComment on above:Performed By: #### NICK LIP, CDP #### [address] [place] [address] Model Maker Scale: Lul Bates mean volume (Bld) [Entitic vol]10.0 fL Normal8.1-13.5[facility] District Hospitalment on above:Performed By: #### NICK LIP, CDP #### [address] [place] [address] Model Maker Scale: Chito Batestekaye (Bld) [#/Vol]372 10*3/wKTzeuih104-233 [facility] CompanyComment on above:Performed By: #### NICK LIP, CDP #### [address] [place] [address] Model Maker Scale: Pavan Davis MDRBC (Bld) [#/Vol]5.30 10*6/uLHigh3.95-5.11[facility] CompanyComment on above:Performed By: #### LINDA ROMERO, CDP #### [facility] [address] [place] [address] Model Maker Scale: DAVID Bates ([facility]) [#/Vol]9.9 10*3/uLNormal3.5-11.3[facility] HospitalComment on above:Performed By: #### LINDA ROMERO, CDP #### [facility] [address] [place], [place] [id number] Model Maker Scale: Pavan Davis [facility] 70-68-1965Zdsvjov [Mass/Vol]4.9 g/dL3.5 - 5.2 g/dLBon [facility] East CampusAlbumin/Globulin [Mass ratio]1.4 {ratio}1.0 - 2.5Bon [facility] CampusALP [Catalytic activity/Vol]69 U/L35 - 104 U/LBon [facility] CampusALT [Catalytic activity/Vol]80 U/LHigh10 - 35 U/LBon [facility] East CampusAnion gap [Moles/Vol]14 mmol/L9 - 16 mmol/LBon [facility] AST [Catalytic activity/Vol]55 U/LHigh10 - 35 U/LBon [facility] Bilirubin [Mass/Vol]0.5 mg/dL0.00 - 1.20 mg/dLBon [facility] East CampusCalcium [Mass/Vol]9.8 mg/dL8.6 - 10.4 mg/dLBon [facility] CampusChloride [Moles/Vol] 102 mmol/L98 - 107 mmol/LBon [facility] CampusCO2 [Moles/Vol]24 mmol/L20 - 31 mmol/LBon [facility] CampusCreatinine [Mass/Vol]0.7 mg/dL0.50 - 0.90 mg/dL Bon [facility] CampusEst, Glom Filt Rate- PINFBon [facility] CampusComment on above: These results are not intended [...] therapy that affects renal tubular secretion. Glucose [Mass/Vol]89 mg/dL74 - 99 mg/dLBon [facility] PhoenixStylefie [facility] HospitalInterpretation and review of laboratory resultsAbnormalBon [facility] [employer] Glass[employer] HealthPotassium [Moles/Vol]3.4 mmol/LLow3.7 - 5.3 mmol/LBon [facility]byterian HealthProtein [Mass/Vol]8.3 g/dL6.6 - 8.7 g/dLBon SecAbbeville General Hospital HealthSodium [Moles/Vol]140 mmol/L136 - 145 mmol/LBon [facility] HealthUrea nitrogen [Mass/Vol]13 mg/dL6 - 20 mg/dLBon [facility] CurrencyBirdUrea nitrogen/Creatinine [Mass ratio]19 mg/mg9 - 20Bon [facility] [employer] [place] [facility] HospitalCT CHEST ABDOMEN PELVIS W CONTRASTon [id number] CHEST ABDOMEN PELVIS W CONTRASTEXAMINATION: CT OF THE CHEST, ABDOMEN, AND PELVIS [...] Signed by: Marysol Hartley MD 02/13/25 Final resultNormalMercy [facility] Chest and Abdomen and Pelvis W contrast Toño . No pneumoperitoneum or findings to suggest bowel [...] 2016 Dec-Jan; 40(2):194-200, Urol J spring; 3(2):71-4. [facility] RIS CONSOLIDATEDEXAMINATION: CT OF THE CHEST, ABDOMEN, AND PELVIS [...] No acute osseous or soft tissue abnormality. [facility] Marysol Anderson MD - 02/13/2025 EXAMINATION: CT OF THE [...] 2016 Dec-Jan; 40(2):194-200, Urol J spring; 3(2):71-4. [facility] HospitalRadiology Study observation (narrative)[facility] HospitalCT Chest and Abdomen and Pelvis W contrast IVOrdered By: Marysol Hartley on 16-50-1904Snr [facility] Work Phone: Comp Metabolic Profon 36-76-6262Ezbmawn [Mass/Vol]4.9 g/dLNormal3.5-5.2[facility] HospitalComment on above:Performed By: #### LINDA ROMERO, JONATHAN #### [facility] [address] [place] [address] [place] [address] Model Maker Scale: Pavan Davis, MDAlbumin/Glob Ratio1.9Rssrlg7.0-2.5MerThe Hospital of Central ConnecticutComment on above:Performed By: #### LINDA ROMERO, JONATHAN #### [facility] [address] [place] [address] Model Maker Scale: Tomy Bates Phos69 U/LUjgtxs73-002UmxypRegency Hospital CompanyComment on above:Performed By: #### CP, LIP, CDP #### [address] [place] [address] Model Maker Scale: Pavan Davis MDALT [Catalytic activity/Vol]80 U/CFrxv20-35NbzaxRegency Hospital CompanyComment on above:Performed By: #### CP, LIP, CDP #### [address] [place] [address] Model Maker Scale: Pavan Davis MDAnion gap [Moles/Vol]14 mmol/LNormal9-16[facility] Hospital CompanyComment on above:Performed By: #### NICK, LIP, CDP #### [facility] [address] [place] [address] [place] [address] Model Maker Scale: Pavan Davis MDAST [Catalytic activity/Vol]55 U/IDhav72-49FnowcRegency Hospital CompanyComment on above:Performed By: #### CP, LIP, CDP #### [address] [place] [address] Model Maker Scale: Pavan Davis MDBilirubin [Mass/Vol]0.5 mg/dLNormal0.00-1.20[facility] CompanyComment on above:Performed By: #### CP, LIP, CDP #### [address] [place] [address] Model Maker Scale: Pavan Davis MDBUN/CRE Guiqt71Zqwgnu9-10Ayonr [facility] Comment on above:Performed By: #### CP, LIP, CDP #### [address] [place], [place] [id number] Model Maker Scale: DELMI Batesalcium [Mass/Vol]9.8 mg/dLNormal8.6-10.4[facility] CompanyComment on above:Performed By: #### NICK LIP, CDP #### [address] [place], [place] [id number] Model Maker Scale: DELMI Bateshloride [Moles/Vol]102 mmol/EVvecwi06-373VhrzlRegency Hospital CompanyComment on above:Performed By: #### NICK, LIP, CDP #### [address] [place], [place] 0240283 Model Maker Scale: Pavan Davis MDCO2 [Moles/Vol]24 mmol/KLthlwj59-76TdaftRegency Hospital CompanyComment on above:Performed By: #### NICK LIP, CDP #### [address] [place], [place] [id number] Model Maker Scale: DELMI Batesreatinine [Mass/Vol]0.7 mg/dLNormal0.50-0.90[facility] CompanyComment on above:Performed By: #### LINDA ROMERO, CDP #### [address] [place] [address] Model Maker Scale: Pavan Davis MDGFR/1.73 sq M.predicted among non-blacks MDRD (S/P/Bld) [Vol rate/Area]mL/min/{1.73_m2}Normal>60[facility] CompanyComment on above:Result Comment: These results are not intended for [...] or following therapy that affects renal tubular secretion.Performed By: #### CP, LIP, CDP #### [address] [place], [place] 3962783 Model Maker Scale: Pavan Davis MDGlucose [Mass/Vol]89 mg/aMAhkqnc95-23Mqyye [facility] HospitalComment on above:Performed By: #### CP, LIP, CDP #### [address] [place] [address] Model Maker Scale: BEN aBtesotassium [Moles/Vol]3.4 mmol/LLow3.7-5.3MercTriHealth HospitalComment on above:Performed By: #### NICK, LIP, CDP #### [address] [place] [address] Model Maker Scale: Pavan Davis MDProtein [Mass/Vol]8.3 g/dLNormal6.6-8.7MerAdena Health System HospitalComment on above:Performed By: #### NICK LIP, CDP #### [address] [place] [address] Model Maker Scale: DARSHANA Batesodium [Moles/Vol]140 mmol/HDqupgp494-740Nbyao Tiffin HospitalComment on above:Performed By: #### NICK, LIP, CDP #### [address] [place] [address] Model Maker Scale: Pavan Davis MDUrea nitrogen [Mass/Vol]13 mg/dLNormal6-20[facility] HospitalComment on above:Performed By: #### NICK, LIP, CDP #### [address] [place] [address] Model Maker Scale: Pavan Davis MDLactic Acidon 26-05-7207Vlsdsya (BldV) [Moles/Vol] 1.2 mmol/L0.5 - 2.2 mmol/LBon [facility] CampusBon [facility] Lactate [Moles/Vol]1.2 mmol/LNormal0.5-2.2Mercy Goessel HospitalComment on above: Performed By: #### LACTIC ####[facility] , [place] [id number] Lab Director: Pavan Davis MDLipaseon 49-99-4738Mjccre [Catalytic activity/Vol]30 U/L13 - 60 U/LBon [facility] Health System East CampusLipase [Catalytic activity/Vol]30 U/SUcumpw79-08WjegtThe Hospital of Central [facility] Comment on above:Performed By: #### CP, LIP, CDP #### [facility] [address] [place], [place] [id number] Model Maker Scale: Pavan Davis MDNo Panel Informationon 13-69-7342Yrt [facility] System East CampusHISTOLOGY - TISSUE EXAMon 46-89-2736QNB AP ADDENDUM NoMemorial Health SystemComment on above:Result Comment: B. Immunohistochemical staining for Helicobacter pylori is negative. The control is satisfactory. Addendum electronically signed by Miguel Smith MD on 02/15/2025 at 10:28 AM Performed By: #### [id number] ####[facility] (BEAKER)[address] [place], [place] [address]XHX AP ASR DISCLAIMERThe interpretation of this case included the use of immunohistochemistry or special stains. These tests have not been cleared or approved by the U.S. Food and Drug Administration. The FDA has determined that such clearance or approval is not necessary. These tests are used for clinical purposes andshould not be regarded as investigational or for research. This laboratory is certified to perform high complexity testing under the Clinical Laboratory Improvement Amendments of 1998.[facility] Valley HospitalComment on above:Performed By: #### [id number] ####[facility] ([facility], [place] [address]FBF AP CASE REPORTNoal [facility] Geneva Medical CenterComment on above:Result Comment: Surgical Pathology Case: [id number] Authorizing Provider: Mich Macedo MD Collected: 02/11/2025 1345 [facility] Received: 02/11/2025 1455 [facility] Pathologist: Miguel Smith MD Specimens: A) - Small Intestine, Duodenum B) - Gastric C) - Large IntestinePerformed By: #### [id number] ####[facility] ([facility])[address] [facility], [place] [address]NNE AP CLINICAL INFORMATIONOrder DiagnosesNormalUniversMcKitrick HospitalComment on above:Result Comment: D50.9 - Iron deficiency anemia, unspecified iron deficiency anemia type [ICD-10-CM] K52.9 - Chronic diarrhea [ICD-10-CM] R10.9, G89.29 - Chronic abdominal pain [ICD-10-CM] D50.9 - Chronic iron deficiency anemia [ICD-10-CM]Performed By: #### [id number] ####[facility] ([facility])[address] [facility], [place] [address]ALY DIAGNOSIS COMMENTB. Immunohistochemical staining for Helicobacter pylori organisms is pending with results to followin an addendum.NormalUniversity Hospitals Geneva Medical CenterComment on above:Performed By: #### [id number] ####[facility] ([facility])[address] [facility], [place] [address]XNS AP GROSS DESCRIPTIONNormal [facility] Hospit[facility] Geneva Medical CenterComment on above:Result Comment: A. Small Intestine, Duodenum. The specimen is received in formalin labeled [facility] Joshua and duodenum. It consists of 6 oro-pink, feathery pieces of mucosal tissue ranging from 0.3 cm to 0.5 cm in greatest dimension. The specimen is submitted in toto in 1 cassette. Mónica Vera, Pathologists' Stone Rubber student Jailene Wilkins, Pathologists' Stone Rubber B. Gastric. The specimen is received in formalin labeled Quyen Joshua and gastric. It consists of 4 oro-pink, shaggy pieces and strips of mucosal tissue ranging from 0.3 cm to 0.7 cm in greatest dimension. The specimen is submitted in toto in 1 cassette. Mónica Vera, Pathologists' Stone Rubber student Jailene Wlikins, Pathologists' Stone Rubber C. Large Intestine. The specimen is received in formalin labeled Quyen Joshua and large intest. It consists of 11 pale-oro, shaggy fragments of mucosal tissue ranging from 0.2 cm to 0.5 cm in greatest dimension. The specimen is submitted in toto in 1 cassette. Mónica Vera, Pathologists' Stone Rubber student Jailene Wilkins, Pathologists' AssistantPerformed By: #### [id number] ####[facility] ([facility])[address] [place], [place] [address] AP MICROSCOPIC DESCRIPTIONMicroscopic examination performed.NormalUniversity Hospitals Geneva Medical CenterComment on above:Performed By: #### [id number] ####[facility] ([facility])[address] [place], [place] [address]TJP REPORT FINAL DIAGNOSIS NARRATIVENormalUniversMcKitrick HospitalComment on above:Result Comment: A. Duodenum, biopsy: - Duodenal mucosa with with no specific abnormality. - No significant inflammation or villous abnormality identified. B. Stomach, biopsy: - Chronic inactive gastritis. - No intestinal metaplasia identified. - See comment. C. Colon, biopsy: - Benign colonic mucosa with no specific abnormality. Performed By: #### [id number] ####[facility] ([facility])[address] [place], [place] [address]ZJ on 23-86-5309MUO&P reviewed. The patient was examined and there are no changes to the H&P.NormalUniversity Hospitals Geneva Medical CenterNURSNOTEon 02-11-2025 NURSNOTEDischarge reviewed with patient and mother Riya. Both verbalized understanding of instructions prior to DC with no questions at this time.NormalUnCleveland Clinic Akron General Lodi HospitalPOCT GLUCOSE METER UNSOLICITED RESULTSon 74-52-9337Cwqacoa [Mass/Vol]100 mg/fSWkxpor88-264NkgattzuczCleveland Clinic Akron General Lodi HospitalComment on above:Order Comment: Waived Testing in the ED is performed under the ED CLIA certificate #[id number].Result Comment: [id number] By: #### [id number] #### [facility] ([facility]) [address] [place], [place] [address]Kmbr for Procedureon 13-33-6426Iebe for Procedure [id number] Quyen Lewis 1990 F Date Provider Department Center 02/02/[address] [place], [place] [address] Pre/Post GEORGEI No family history on fileNormalUniversity of Ut Health [facility] Athens HospitalOrders Onlyon 37-09-6217Qgvero [id number] Quyen Lewis 1990 F Date Provider Department Center 02/01/2025 [id number], HISTORICAL MP GI Medical Pavi No family history on fileNormalUniversMcKitrick HospitalCalprotectin, Fecalon 87-75-9135Pfptjdntlksx, Fecal61 ug/gHigh<=49[facility] Comment on above:Result Comment: (NOTE) REFERENCE INTERVAL: Calprotectin, Fecal by Immunoassay Less than 50 ug/g........Normal 50-120 ug/g..............Borderline elevated, test should be re-evaluated in 4-6 weeks. 121 ug/g or greater......Elevated Performed By: [facility] [address] [place] [address] Ordnance Keeper: Yuriy Cardenas MD, PhD CLIA Number: [id number] By: #### APEF, AFFRAN #### [facility] [address] [place] [address] Model Maker Scale: Julio C Patino MD. pylori Antigenon 01-29-2025H. pylori Antigen Specimen Description .FECES Direct Exam NEGATIVE Report Status FINAL 01/29/2025[facility] HospitalComment on above: Performed By: #### FERI #### [facility] [address] [place] [address] Model Maker Scale: Haim Wu MD #### CP, CDP #### [facility] [address] [place] [address] Model Maker Scale: Pavan Davis MDOrders Onlyon 18-12-7397Slwrrj [id number] Quyen Lewis 1990 F Date Provider Department Center 01/29/2025 [id number], HISTORICAL MP GI Medical Pavi No family history on fileNormalUniversst. john of [facility] PCR [place] 24-11-8895Qxlalzrlgjlwf sp PCRNEGATIVE: No Campylobacter spp. (jejuni or coli) DNA DetectedNormalCAMNThe Christ HospitalComment on above: Performed By: #### APEF, AFFRAN #### [facility] [address] [place] [address] Model Maker Scale: PAPI Andrade coli enterotox PCRNEGATIVE: No Enterotoxigenic E. coli (ETEC) Heat-labile and heat-stable (LT/ST)NormalEECNThe Christ HospitalComment on above:Result Comment: DNA DetectedPerformed By: #### APEF, AFFRAN #### [facility] [address] [place] [address] Model Maker Scale: Benny Andradeas sp PCRNegativeNoKaiser Foundation HospitalNEGAvita Health System Bucyrus HospitalComment on above:Performed By: #### APEF, AFFRAN #### [facility] [address] [place] [address] Model Maker Scale: DARSHANA Andradealmonella sp PCRNegativeNoalSALNEGAvita Health System Bucyrus HospitalComuniversity of michigan hospital on above:Performed By: #### APEF, AFFRAN #### [facility] [address] [place] [address] Model Maker Scale: DARSHANA Andradehigatoxin gene PCRNegativeNormalSTXNEGAvita Health System Bucyrus HospitalComuniversity of michigan hospital on above:Performed By: #### APEF, AFFRAN #### [facility] [address] [place] [address] Model Maker Scale: Jody Andradegella sp PCRNegativeNormalSHINEGAvita Health System Bucyrus HospitalComment on above:Performed By: #### APEF, AFFRAN #### [facility] [address] [place] [address] Model Maker Scale: Stuart Andrade sp PCRNEGATIVE: No Vibrio (V. vulnificus, V, parahaemolyticus and V. cholerae) DNANormalVIChildren's Hospital of [facility] Comment on above:Result Comment: DetectedPerformed By: #### APEF, AFFRAN #### [facility] [address] [place] [address] Model Maker Scale: Xiang Andrade gene PCRNegativeNormalYERNEGAvita Health System Bucyrus HospitalComment on above:Performed By: #### APEF, AFFRAN #### [employer] [address] [place] [address] Model Maker Scale: Ignacio Andradeol PCR [place] 00-18-7126Ixcdhbpf Description.FECESNormalAvita Health System Bucyrus HospitalComment on above:Performed By: #### TEE, AFFRAN #### [facility] [address] [place] [address] Model Maker Scale: DELMI AndradeELIAC DISEASE SCREENon 96-89-0228EPNOJE TRANSGLUTAMINASE, IGA<1.60Ehceiv5.00-4.99[facility] Comment on above:Result Comment: Tissue transglutaminase, IgA antibody below lower [...] indicate a response to therapy. Performed By: [facility] [address] [place] [address] Ordnance Keeper: Yuriy Cardenas MD, PhD CLIA Number: [id number] By: #### [id number] #### [facility] ([facility]) [address] [place] [address]WNEZBIK ANTIBODY, IGAon 75-53-6731IHBTLDJQVP GLIADIN PEPTIDE (DGP) AB, IGA<0.94Ampwpw3.00-4.99[facility] Comment on above:Result Comment: Low IgA antibody levels suspected. Tissue [...] tissue transglutaminase (tTG) IgA antibody. Performed By: [facility] [address] [place] [address] Ordnance Keeper: Yuriy Cardenas MD, PhD CLIA Number: [id number] By: #### [id number] #### [employer] [address]AEJCRKY ANTIBODY, IGGon 28-76-1858XHEZBRKJDY GLIADIN PEPTIDE (DGP) AB, IGG2.33 FLUNormal0.00-4.99[facility] Comment on above:Result Comment: INTERPRETIVE INFORMATION: Deamidated Gliadin Peptide (DGP) [...] in patients without IgA deficiency. Performed By: [facility] [address] [place] [address] Ordnance Keeper: Yuriy Cardenas MD, PhD CLIA Number: [id number] By: #### [id number] #### [facility] [employer] [address]CEvp 62-15-1658WSUJBV Gastroenterology New Patient Visit - History & Physical [...] IGA B12/Folate/Iron studies: No results found for: CSJWTOIK41 , FOLATE , IRON , TIBC , [...] for: MOISÉS , SMOOTHMUSCAB , CERULOPLSM , K2FIVGWHMTT , TTGA , IGA , TSH , FREET4 , AFP No results found for: TSH , E2FLYHX , N5VUCXC , THYROIDAB Pancreatitis No results found for: [...] capsule, Take 1 cap (more content not included)...Normal [facility] Medical CenterLabon [id number] Quyen Lewis 1990 Provider Department Center 01/19/2025 2244-[facility] LAB RESOURCE MP DRAW Medical Pavi No family history on fileNormalUniversMcKitrick HospitalOffice Visiton 63-85-9481Exdhsm-up [id number] Quyen Lewis 1990 Provider Department [place] 01/19/2025 60547-KLGVZGZLMMARISSA BERMUDEZ*MP GI Medical Pavi No family history on file Level of Service:67183 [place] OFFICE/OUTPATIENT NEW MODERATE MDM 45 MINUTES Reason for Visit and Comments: New Patient [632] irregular bowel habits [Other]NormalUnCleveland Clinic Akron General Lodi HospitalOrders Onlyon 86-84-1209Ftovml [id number] Quyen Lewis 1990 Provider Department Center 01/19/2025 [address]-VSOVQQKLOTUS CARR [facility] GISC GEORGEI No family history on [facility] hospitalNormalUVan Wert County HospitalTISSUE TRANSGLUTAMINASE, IGGon 76-39-7333ZDJMON TRANSGLUTAMINASE, IGG<0.82Normal 0.00-4.99UnCleveland Clinic Akron General Lodi HospitalComment on above:Result Comment: INTERPRETIVE INFORMATION: Tissue Transglutaminase Ab, IgG [...] in patients without IgA deficiency. Performed By: [facility] [address] [place] [address] Ordnance Keeper: Yuriy Cardenas MD, PhD CLIA Number: [id number] By: #### [id number] #### [facility] ([facility]) [address] [place] [address]IYYRVO PHOTOS OU (BOTH EYES)on 31-27-5204Bwfznnmaa ClinicRadiology Study observation (narrative)[facility] HospitalOCT OPTIC NERVE CIRRUS OU (BOTH EYES)on 69-96-8736Edieytepa ClinicRadiology Study observation (narrative)[facility]rbana HospitalVISUAL FIELD 24-2 OU (BOTH EYES)on 01-11-[address] [facility] Medical Centeriology Study observation (narrative)[facility] with Auto Differentialon 90-13-8741Plcdyxsgp (Bld) [#/Vol]0.02 10*3/uLBon Secours Mercy HealthBasophils/100 WBC (Bld)0 %0 - 2 %[facility] HealthEosinophils (Bld) [#/Vol]0.11 10*3/uLBon Secours Mercy HealthEosinophils/100 WBC (Bld)2 %0 - 5 %[facility] HealthErythrocyte distribution width (RBC) [Ratio]12.7 % 12.1 - 15.2 %[facility] HealthHematocrit (Bld) [Volume fraction]40.2 % 36.0 - 46.0 %[facility] HealthHemoglobin (Bld) [Mass/Vol]14.2 g/dL12.0 - 16.0 g/dLBon Secours Mercy HealthImmature granulocytes (Bld) [#/Vol]0.01 10*3/uL [facility] HealthImmature granulocytes/100 WBC (Bld)0 %0 - 5 %[facility] HealthInterpretation and review of laboratory resultsAbnormalBon Secours Mercy HealthLymphocytes/100 WBC (Bld)30 %15 - 40 %[facility] Lymphocytes/100 WBC (Bld)1.67 %[facility] HealthMCH (RBC) [Entitic mass] 28.1 pg26.0 - 34.0 pgBon Secours Mercy HealthMCHC (RBC) [Mass/Vol]35.3 g/dL31.0 - 37.0 g/dLBon Secours Mercy HealthMCV (RBC) [Entitic vol]79.6 fLLow80.0 - 100.0 fLRiverside Walter Reed HospitalMonocytes/100 WBC (Bld)6 %4 - 8 %Bon [facility] CampusMonocytes/100 WBC (Bld)0.36 %[facility] HospitalNeutrophils/100 WBC (Bld)62 %47 - 75 %[facility] HospitalPlatelet mean volume (Bld) [Entitic vol]9.6 fL6.0 - 12.0 fLRiverside Walter Reed HospitalPlatelets (Bld) [#/Vol]301 10*3/uLBon [facility] System East CampusRBC (Bld) [#/Vol]5.05 10*6/uL4.00 - 5.20 m/uLRiverside Walter Reed HospitalSegmented neutrophils/100 WBC (Bld)3.42 %[facility] HospitalWBC other (Bld) [#/Vol]5.6Bon [facility] CBC with Diffon 12-93-0850Soz. Basophil0.02 k/uLNormal0.00-0.20[facility] HospitalComment on above:Performed By: #### CDP, TSH #### [facility] [address] [place] [address] Model Maker Scale: Pavan Davis MD #### FERI, FT3, FE, T4 #### [facility] [employer] [address] [place], [place] [address] Model Maker Scale: Selina Orozco.Imm.Granulocyte0.01 k/uLNormal0.00-0.30[facility] HospitalComment on above:Performed By: #### CDP, TSH #### [facility] [address] [place] [address] Model Maker Scale: Pavan Davis MD #### FERI, FT3, FE, T4 #### [facility] [employer] [address] [place], [place] [address] Model Maker Scale: Selina Orozco.Neutrophil (Seg)3.42 k/uLNormal2.5-7.0[facility] HospitalComment on above:Performed By: #### CDP, TSH #### [facility] [address] [place] [address] Model Maker Scale: Pavan Davis MD #### FERI, FT3, FE, T4 #### [address] [id number] Model Maker Scale: Haim Wu MDBasophils/100 WBC (Bld)0 %Normal0-2[facility] Medical CenterComment on above:Performed By: #### CDP, TSH #### [facility] [address] [place] [address] Model Maker Scale: Pavan Davis MD #### FERI, FT3, FE, T4 #### [place] [id number] Model Maker Scale: Haim Wu MDEosinophils (Bld) [#/Vol]0.11 10*3/uLNormal 0.00-0.40[facility] HospitalComment on above:Performed By: #### CDP, TSH #### [facility] [address] [place] [address] Model Maker Scale: Pavan Davis MD #### FERI, FT3, FE, T4 #### [place] [id number] Model Maker Scale: Haim Wu MDEosinophils/100 WBC (Bld)2 %Normal0-5[facility] on above:Performed By: #### CDP, TSH #### [facility] [address] [place] [id number] Model Maker Scale: Pavan Davis MD #### FERI, FT3, FE, T4 #### [place] [id number] Model Maker Scale: Haim Wu MDErythrocyte distribution width (RBC) [Ratio]12.7 %Kjxosr02.1-15.2MTuscarawas Hospital on above:Performed By: #### CDP, TSH #### [facility] [address] [place], [place] [id number] Model Maker Scale: Pavan Davis MD #### FERI, FT3, FE, T4 #### [place] [address] [place], [place] 97[address] Model Maker Scale: Haim Wu MDHematocrit (Bld) [Volume fraction]40.2 %Normal 36.0-46.0[facility] on above:Performed By: #### CDP, TSH #### [facility] [address] [place] [id number] Model Maker Scale: Pavan Davis MD #### FERI, FT3, FE, T4 #### [place] [address] [place], [place] [address] Model Maker Scale: Haim Wu MDHemoglobin (Bld) [Mass/Vol]14.2 g/dLNormal 12.0-16.0[facility] on above:Performed By: #### CDP, TSH #### [facility] [address] [place] [id number] Model Maker Scale: Pavan Davis MD #### FERI, FT3, FE, T4 #### [place] [address] [place], [place] [id number] Model Maker Scale: Haim Wu MDImmature granulocytes/100 WBC (Bld)0 %Normal0-5 [facility] on above:Performed By: #### CDP, TSH #### [facility] [address] [place], [place] 398[address] Model Maker Scale: Pavan Davis MD #### FERI, FT3, FE, T4 #### [address] [id number] Model Maker Scale: Haim Wu MDLymphocytes (Bld) [#/Vol]1.67 10*3/uLNormal 1.00-4.80[facility] HospitalComment on above:Performed By: #### CDP, TSH #### [facility] [address] [place] [id number] ( Model Maker Scale: Pavan Davis MD #### FERI, FT3, FE, T4 #### [address] [id number] Model Maker Scale: Ino Orozcomphocytes/100 WBC (Bld)30 %Rnpbck24-53KeijvAvita Health System Bucyrus HospitalComment on above:Performed By: #### CDP, TSH #### [facility] [address] [place] [id number] ( Model Maker Scale: Pavan Davis MD #### FERI, FT3, FE, T4 #### [address] [id number] Model Maker Scale: AFSHAN OrozcoCH (RBC) [Entitic mass]28.1 vrCgwqde58.0-34.0 [facility] HospitalComment on above:Performed By: #### CDP, TSH #### [facility] [address] [place] [address] Model Maker Scale: Pavan Davis MD #### FERI, FT3, FE, T4 #### [address] [id number] Model Maker Scale: MARTIN OrozcoC (RBC) [Mass/Vol]35.3 g/hTFpcwxi96.0-37.0 [facility] HospitalComment on above:Performed By: #### CDP, TSH #### [facility] [address] [place], [place] 8307690 Model Maker Scale: Pavan Davis MD #### FERI, FT3, FE, T4 #### [place] [id number] Model Maker Scale: Haim Wu MDMCV (RBC) [Entitic vol]79.6 fLLow80.0-100.0[facility] on above:Performed By: #### CDP, TSH #### [facility] [address] [place] [id number] Model Maker Scale: Pavan Davis MD #### FERI, FT3, FE, T4 #### [place] [id number] Model Maker Scale: Haim Wu MDMonocytes (Bld) [#/Vol]0.36 10*3/uLNormal 0.00-1.00[facility] HospitalComment on above:Performed By: #### CDP, TSH #### [facility] [address] [place] [id number] Model Maker Scale: Pavan Davis MD #### FERI, FT3, FE, T4 #### [place] [id number] Model Maker Scale: Haim Wu MDMonocytes/100 WBC (Bld)6 %Normal4-8[facility] HospitalComment on above:Performed By: #### CDP, TSH #### [facility] [address] [place] [id number] Model Maker Scale: Pavan Davis MD #### FERI, FT3, FE, T4 #### [place] [id number] Model Maker Scale: Haim Wu MDNeutrophil (Seg)62 %Sczude86-52LiiwzAvita Health System Bucyrus HospitalComment on above:Performed By: #### CDP, TSH #### [facility] [address] [place], [place] [id number] Model Maker Scale: Pavan Davis MD #### FERI, FT3, FE, T4 #### [address] [id number] Model Maker Scale: Lul Orozco mean volume (Bld) [Entitic vol]9.6 fL Normal6.0-12.0[facility] on above:Performed By: #### CDP, TSH #### [facility] [address] [place] [address] Model Maker Scale: Pavan Davis MD #### FERI, FT3, FE, T4 #### [address] [id number] Model Maker Scale: Re Orozco (Bld) [#/Vol]301 10*3/wESvaxer441-443 [facility] on above:Performed By: #### CDP, TSH #### [facility] [address] [place] [address] Model Maker Scale: Pavna Davis MD #### FERI, FT3, FE, T4 #### [address] [id number] Model Maker Scale: Haim Wu MDRBC (Bld) [#/Vol]5.05 10*6/uLNormal4.00-5.20 [facility] on above:Performed By: #### CDP, TSH #### [facility] [address] [place] [address] Model Maker Scale: Pavan Davis MD #### FERI, FT3, FE, T4 #### [address] [id number] Model Maker Scale: Haim Wu MDWBC (Bld) [#/Vol]5.6 10*3/uLNormal3.5-11.0[facility] on above:Performed By: #### CDP, TSH #### [facility] [address] [place], [place] [id number] Model Maker Scale: Pavan Davis MD #### KEISHA, FT3, FE, T4 #### [address] [phone] Model Maker Scale: Haim Wu MDFerritinon 16-97-3286Qsozrhcc [Mass/Vol]33 ng/mL 15 - 150 ng/mLRiverside Walter Reed HospitalComuniversity of michigan hospital on above: FERRITIN Reference Ranges: Adult Males 20 - 60 years: 30 - 400 ng/mL Adult females 17 - 60 years: 13 - 150 ng/mL Adults greater than 60 years: no established reference range Pediatrics: no established reference range Ferritin [Mass/Vol]33 ng/dWOpzqos75-580LotqfSelect Medical Specialty Hospital [facility] on above: Result Comment: FERRITIN Reference Ranges: Adult Males 20 - 60 years: 30 - 400 ng/mL Adult females 17 - 60 years: 13 - 150 ng/mL Adults greater than 60 years: no established reference range Pediatrics: no established reference rangePerformed By: #### FERI #### [address] [id number] Model Maker Scale: Haim Wu MD #### NICK, CDP #### [facility] [address] [place], [place] [id number] Model Maker Scale: Pavan Davis MDIrokishore 81-32-7886Pdva [Mass/Vol]49 ug/dL37 - 145 ug/dLBon [facility] System East CampusIron [Mass/Vol]49 ug/yCVavrib54-043TcwrpSelect Medical Specialty [facility] on above:Performed By: #### FERI #### [address] [id number] Model Maker Scale: Haim Wu MD #### CP, CDP #### [facility] [address] [place] [address] Model Maker Scale: Pavan Davis MDNo Panel Informationon 62-10-4928Zsq [facility] CampusT3, Freeon 64-66-2652Pjnf T3 [Mass/Vol]3.27 pg/mL2.00 - 4.40 pg/mLBon [facility] CampusFr T3 [Mass/Vol]3.27 pg/mLNormal2.00-4.40[facility]cyrus HospitalComment on above:Performed By: #### FERI #### [address] [id number] Model Maker Scale: Haim Wu MD #### CP, CDP #### [facility] [address] [place] [address] Model Maker Scale: Pavan Davis MDT4on 93-80-2959Y2 [Mass/Vol]10.2 ug/dL4.5 - 11.7 ug/dLBon [facility] Care Hospital and SchoolTSHon 64-71-3810AFW Qn1.03 m[IU]/LBon [facility] Care Hospital and SchoolThyroid Stim. Horm.on 85-67-8696Entxdqc Stim. Horm.1.03 uIU/mLNormal0.27-4.20[facility] Comment on above:Performed By: #### FERI #### [address] [id number] Model Maker Scale: Haim Wu MD #### CP, CDP #### [facility] [address] [place] [address] Model Maker Scale: Pavan Davis MDThyroxine T4on 96-53-1040O4 [Mass/Vol]10.2 ug/dL Normal4.5-11.7[facility] Bucyrus HospitalComment on above:Performed By: #### FERI #### [address] [id number] Model Maker Scale: Haim Wu MD #### CP, CDP #### [facility] [place] [address] Model Maker Scale: Ruth Ann Bates 11-10-2024 Specimen: [id number] Received: 11/10/24 Status: RENO Adam Num: [id number] Spec Type: Cytology Subm Dr: Michele Peterson DO Tissues: A FNA SLIDES NOPATH (RT THY NOD) Procedures: Cyto Int and EZEQUIEL DowlingN/13 Age/ Patient Sex Location Account Attending Physician Quyen Lewis 34/F [place] [id number] Michele Peterson DO SPEC NUM: [id number] RECD: 11/10/24 STATUS: RENO BALDERAS NUM: [id number] SPEEDY: 11/10/[address]: Michele Peterson DO ENTERED: 11/10/24 [facility]: SPEC TYPE: Cytology DEPT: CNG ENTERED BY: [id number] RECV BY: [id number] ORDERED: Cyto Int and Re, PAPSTN/13 ORDERED: Cyto Int and Re, PAPSTN/13 Supplemental Report Addendum 1 Entered: 11/23/24 Afirma testing results: Afirma GSC benign. See attached report. Addendum Signed (signature on file) Oc Roque MD 11/23/241609 Pathological Diagnosis Right thyroid nodule, FNA cytology: -Hypercellular preparation in many smears appropriate for assessment -Mostly are benign follicular cells with small uniform ovoid nuclei -However, rare follicular groups are more dense and hypercellular in both preparations -The overall findings is also suspicious for adenomatous hyperplasia and may suggest atypia of undetermined significance, the category 3 [place] system Specimen: [id number] Received: 11/10/24 Status: RENO Balderas Num: [id number] Spec Type: Cytology Subm Dr: Michele Petesron DO Tissues: A FNA SLIDES NOPATH (RT THY NOD) Procedures: Cyto Int and Re, PAPSTN Patient: Quyen Lewis [id number] (Continued) Specimen: [id number] Received: 11/10/24 (Continued) Pathological Diagnosis (Continued) Signed (signature on file) Rohini Crow MD 11/11/24 1132 Specimen: [id number] Received: 11/10/24 Status: RENO Balderas Num: [id number] Spec Type: Cytology Subm Dr: Micheel Peterson DO Tissues: A FNA SLIDES NOPATH (RT THY NOD) Procedures: Cyto Int and Re, PAPSTN Patient: Quyen Lewis [id number] (Continued) Specimen: [id number] Received: 11/10/24 (Continued) Pathological Diagnosis (Continued) -Pending [...] performed supporting the above interpretation CPT Codes 65923 Specimen: [id number] Received: 11/10/24 Status: RENO Balderas Num: [id number] Spec Type: Cytology Subm Dr: Michele Peterson DO Tissues: A FNA SLIDES NOPATH (RT THY NOD) Procedures: Cyto Int and Re, PAPSTN/13 Patient: Quyen Lewis [id number] ([facility]) Signed (signature on file) Gadiel-Riaz Crow MD 11/11/[address] [place] [address] [facility]ician [facility]on 11-03-2024 Surgical Pathology Report(NOTE) Path Number: [id number] -- Diagnosis -- Right labia skin, biopsy: -Benign polypoid neurotized nevus. Pavan Davis M.D. Electronically Signed Out kristel11/05/2024 Clinical Information Pre-Op Diagnosis: LABIAL SKIN TAG Operative Findings: RIGHT LABIA MINORA mj Source of Specimen A: RIGHT LABIA MINORA SKIN TAG Gross Description QUYEN MOELLERIANO, LABIAL SKIN TAG Received in formalin is a 0.3 x 0.3 x 0.3 cm oro papule. Inked intact 1cs. tm Iris Girard/mj:11/04/2024 Microscopic Description Microscopic examination performed. Sections show polypoid skin with a collection of spindled type cells with light wavy pink cytoplasm that are positive for Melan triple stain and S100 immunostains, confirming neurotized nevus. Controls react as expected. Processing Lab: [address] [address] Interpretation Performed at [address] [address] SURGICAL PATHOLOGY CONSULTATION Patient Name: QUYEN LEWIS [facility] Rec: [id number] [facility] ANATOMIC PATHOLOGY [address] [place] [phone] NoThe MetroHealth SystemAnti-Thy Peroxidaseon 09-24-2024 Anti-Thy Qdzvmgakss91.0 IU/mLNormal0.0-25.0[facility] HospitalComment on above:Result Comment: Reference Range: <25.0 Negative 25.0-35.0 Equivocal >35.0 Positive When results are Equivocal, it is recommended to retest after 8-12 weeks. Performed By: #### FERI #### [address] [address] Model Maker Scale: Haim Wu MD #### CP, CDP #### [facility] [address] [place] [address] Model Maker Scale: Pavan Davis MDThyroglobulin Abon 12-85-7994Fpabdrntlvuyr Ab Qn 25.0 [IU]/mLNormal0.0-40.0[facility] HospitalComment on above:Result Comment: Reference Range: <40.0 Negative 40.0-60.0 Equivocal >60.0 Positive When results are Equivocal, it is recommended to retest after 8-12 weeks. Performed By: #### FERI #### [place] [id number] Model Maker Scale: Haim Wu MD #### CP, CDP #### [facility] [address] [place] [address] Model Maker Scale: DELMI BatesBC with Diffon 23-65-0837Tsk. Basophil0.02 k/uL Normal0.00-0.20[facility] HospitalComment on above:Performed By: #### FERI #### [address] [id number] Model Maker Scale: Haim Wu MD #### CP, CDP #### [facility] [address] [place], [place] [id number] Model Maker Scale: Selina Bates.Imm.Granulocyte0.01 k/uLNormal0.00-0.30[facility] HospitalComment on above:Performed By: #### FERI #### [address] [id number] Model Maker Scale: Haim Wu MD #### CP, CDP #### [facility] [address] [place], [place] [id number] Model Maker Scale: Selina Bates.Neutrophil (Seg)3.62 k/uLNormal2.5-7.0[facility] HospitalComment on above:Performed By: #### FERI #### [address] [id number] Model Maker Scale: Haim Wu MD #### CP, CDP #### [facility] [address] [place], [place] 8216090 Model Maker Scale: Pavan Davis MDBasophils/100 WBC (Bld)0 %Normal0-2MLicking Memorial HospitalComment on above:Performed By: #### FERI #### [address] [id number] Model Maker Scale: Haim Wu MD #### CP, CDP #### [facility] [address] [place], [place] 5673190 Model Maker Scale: Pvaan Davis MDEosinophils (Bld) [#/Vol]0.13 10*3/uLNormal 0.00-0.40[facility] HospitalComuniversity of [facility] hospital on above:Performed By: #### FERI #### [address] [address] Model Maker Scale: Haim Wu MD #### CP, CDP #### [facility] [address] [place] [address] Model Maker Scale: Pavan Davis MDEosinophils/100 WBC (Bld)2 %Normal0-5[facility] HospitalComment on above:Performed By: #### FERI #### [address] [id number] Model Maker Scale: Haim Wu MD #### CP, CDP #### [facility] [address] [place], [place] [id number] Model Maker Scale: Pavan Davis MDErythrocyte distribution width (RBC) [Ratio]12.9 % Rnjlyj71.1-15.2MLicking Memorial HospitalComment on above:Performed By: #### FERI #### [address] [id number] Model Maker Scale: Haim Wu MD #### CP, CDP #### [facility] [address] [place], [place] 5577190 Model Maker Scale: Pavan Davis MDHematocrit (Bld) [Volume fraction]37.6 %Normal 36.0-46.0[facility] HospitalComment on above:Performed By: #### FERI #### [address] [id number] Model Maker Scale: Haim Wu MD #### CP, CDP #### [facility] [address] [place], [place] 4405190 Model Maker Scale: Pavan Davis MDHemoglobin (Bld) [Mass/Vol]13.7 g/dLNormal 12.0-16.0[facility] HospitalComment on above:Performed By: #### FERI #### [address] [id number] Model Maker Scale: Haim Wu MD #### CP, CDP #### [facility] [address] [place], [place] [id number] Model Maker Scale: Pavan Davis MDImmature granulocytes/100 WBC (Bld)0 %Normal0-5 [facility] on above:Performed By: #### FERI #### [facility] [address] [place] [address] Model Maker Scale: Haim uW MD #### CP, CDP #### [facility] [address] [place], [place] 1159690 Model Maker Scale: Pavan Davis MDLymphocytes (Bld) [#/Vol]1.61 10*3/uLNormal 1.00-4.80[facility] on above:Performed By: #### FERI #### [address] [address] Model Maker Scale: Haim Wu MD #### CP, CDP #### [facility] [address] [place], [place] 7623590 Model Maker Scale: Pavan Davis MDLymphocytes/100 WBC (Bld)28 %Qakeyj88-76AgyhsSelect Medical Specialty Hospital - [facility] on above:Performed By: #### FERI #### [address] [address] Model Maker Scale: Haim Wu MD #### CP, CDP #### [facility] [address] [place], [place] 7321990 Model Maker Scale: AFSHAN BatesCH (RBC) [Entitic mass]29.0 cyZmofqt25.0-34.0 [facility] on above:Performed By: #### FERI #### [address] [address] Model Maker Scale: Haim Wu MD #### CP, CDP #### [facility] [address] [place], [place] 9348290 Model Maker Scale: AFSHAN BatesCHC (RBC) [Mass/Vol]36.4 g/cCVgtjdv87.0-37.0[facility] Campusment on above:Performed By: #### FERI #### [address] 0963708 Model Maker Scale: Haim Wu MD #### CP, CDP #### [facility] [address] [place], [place] 4160490 Model Maker Scale: AFSHAN BatesCV (RBC) [Entitic vol]79.5 fLLow80.0-100.0[facility] HospitalComuniversity of michigan hospital on above:Performed By: #### FERI #### [address] [id number] Model Maker Scale: Haim Wu MD #### CP, CDP #### [facility] [address] [place], [place] 7950590 Model Maker Scale: AFSHAN Batesonocytes (Bld) [#/Vol]0.42 10*3/uLNormal0.00-1.00 [facility] HospitalComment on above:Performed By: #### FERI #### [address] 8808108 Model Maker Scale: Haim Wu MD #### CP, CDP #### [facility] [address] [place], [place] 0581390 Model Maker Scale: AFSHAN Batesonocytes/100 WBC (Bld)7 %Normal4-8[facility] on above:Performed By: #### FERI #### [address] 1013008 Model Maker Scale: Haim Wu MD #### CP, CDP #### [facility] [address] [place], [place] 2371490 Model Maker Scale: Pavan Davis MDNeutrophil (Seg)63 %Lzkmox08-24DstbtSelect Medical Specialty Hospital - [facility] on above:Performed By: #### FERI #### [place] [address] [place] [address] Model Maker Scale: Haim Wu MD #### CP, CDP #### [facility] [address] [place], [place] 9063390 Model Maker Scale: Lul Bates mean volume (Bld) [Entitic vol]9.6 fL Normal6.0-12.0[facility] on above:Performed By: #### FERI #### [address] [address] Model Maker Scale: Haim Wu MD #### CP, CDP #### [facility] [address] [place] [address] Model Maker Scale: Re Bates (Bld) [#/Vol]242 10*3/wQVheguk917-007 [facility] on above:Performed By: #### FERI #### [address] [address] Model Maker Scale: Haim Wu MD #### CP, CDP #### [facility] [address] [place] [address] Model Maker Scale: QUE Bates (Bld) [#/Vol]4.73 10*6/uLNormal4.00-5.20[facility] on above:Performed By: #### FERI #### [address] [address] Model Maker Scale: Haim Wu MD #### CP, CDP #### [facility] [address] [place] [address] Model Maker Scale: Pavan Davis MDWBC (Bld) [#/Vol]5.8 10*3/uLNormal3.5-11.0[facility] on above:Performed By: #### FERI #### [address] [address] Model Maker Scale: Haim Wu MD #### CP, CDP #### [facility] [address] [place] [address] Model Maker Scale: DELMI Batesomp Metabolic Profon 07-60-8534Qvxycqn [Mass/Vol] 4.7 g/dLNormal3.5-5.2MLicking Memorial HospitalComuniversity of michigan hospital on above:Performed By: #### FERI #### [address] [address] Model Maker Scale: Haim Wu MD #### CP, CDP #### [facility] [address] [place] [address] Model Maker Scale: Tomy Bates Phos57 U/TByhbjw45-894IdcduSelect Medical Specialty Hospital - [facility] on above:Performed By: #### FERI #### [address] [address] Model Maker Scale: Haim Wu MD #### CP, CDP #### [facility] [address] [place] [address] Model Maker Scale: Pavan Davis MDALT [Catalytic activity/Vol]51 U/LHigh5-33[facility] on above:Performed By: #### FERI #### [address] [address] Model Maker Scale: Haim Wu MD #### CP, CDP #### [facility] [address] [place] [address] Model Maker Scale: Ibrahima Bates gap [Moles/Vol]17 mmol/LNormal9-17[facility] HospitalComment on above:Performed By: #### FERI #### [facility] [address] [place] [address] Model Maker Scale: Haim Wu MD #### CP, CDP #### [facility] [address] [place], [place] 7907890 Model Maker Scale: Pavan Davis MDAST [Catalytic activity/Vol]38 U/LHigh<32[facility] HospitalComment on above:Performed By: #### FERI #### [address] [id number] Model Maker Scale: Haim Wu MD #### CP, CDP #### [facility] [address] [place], [place] 2707190 Model Maker Scale: Pavan Davis MDBilirubin [Mass/Vol]0.3 mg/dLNormal0.3-1.2[facility] hospitaly [facility] Medical CenterComment on above:Performed By: #### FERI #### [address] 0156808 Model Maker Scale: Haim Wu MD #### CP, CDP #### [facility] [address] [place], [place] 7464690 Model Maker Scale: Pavan Davis MDBUN/CRE Fuuiu35Vaamow9-66Wlzkp [facility] Comment on above:Performed By: #### FERI #### [facility] [address] [place] [address] 9226508 Model Maker Scale: Haim Wu MD #### CP, CDP #### [facility] [address] [place], [place] 2143390 Model Maker Scale: DELMI Batesalcium [Mass/Vol]9.8 mg/dLNormal8.6-10.4[facility] HospitalComuniversity of mich[facility] hospital on above:Performed By: #### FERI #### [facility] [address] [place] [address] Model Maker Scale: Haim Wu MD #### CP, CDP #### [facility] [address] [place], [place] 1153390 Model Maker Scale: DELMI Bateshloride [Moles/Vol]101 mmol/ADvroqe28-161VlrdeAvita Health System Bucyrus HospitalComment on above:Performed By: #### FERI #### [facility] [address] [place] [address] Model Maker Scale: Haim Wu MD #### CP, CDP #### [facility] [address] [place], [place] 9715890 Model Maker Scale: DELMI BatesO2 [Moles/Vol]21 mmol/GTtvksm18-00IyaozAvita Health System Bucyrus HospitalComuniversity of michigan hospital on above:Performed By: #### FERI #### [facility] [address] [place] [address] Model Maker Scale: Haim Wu MD #### CP, CDP #### [facility] [address] [place], [place] 1478290 Model Maker Scale: DELMI Batesreatinine [Mass/Vol]0.6 mg/dLNormal0.5-0.9[facility] on above:Performed By: #### FERI #### [facility] [address] [place] [address] Model Maker Scale: Haim Wu MD #### CP, CDP #### [facility] [address] [place], [place] 0702490 Model Maker Scale: Pavan Davis MDGFR/1.73 sq M.predicted among non-blacks MDRD (S/P/Bld) [Vol rate/Area]mL/min/{1.73_m2}Normal>60[facility] HospitalComment on above:Result Comment: These results are not intended for [...] or following therapy that affects renal tubular secretion.Performed By: #### FERI #### [address] [address] Model Maker Scale: Haim Wu MD #### CP, CDP #### [facility] [address] [place] [address] Model Maker Scale: Pavan Davis MDGlucose [Mass/Vol]105 mg/oYOudm36-72RbayyLicking Memorial HospitalComment on above:Performed By: #### FERI #### [address] [address] Model Maker Scale: Haim Wu MD #### CP, CDP #### [facility] [address] [place] [address] Model Maker Scale: BEN Batesotassium [Moles/Vol]3.8 mmol/LNormal3.7-5.3[facility] hospitaly [facility] CenterComment on above:Performed By: #### FERI #### [address] [address] Model Maker Scale: Haim Wu MD #### CP, CDP #### [facility] [address] [place] [address] Model Maker Scale: Pavan Davis MDProtein [Mass/Vol]7.4 g/dLNormal6.4-8.3[facility] hospitaly [facility] CenterComment on above:Performed By: #### FERI #### [address] [address] Model Maker Scale: Haim Wu MD #### CP, CDP #### [facility] [address] [place] [address] Model Maker Scale: DARSHANA Batesodium [Moles/Vol]139 mmol/XEtqbaz122-651WclmmAvita Health System Bucyrus HospitalComment on above:Performed By: #### FERI #### [facility] [address] [place], [place] 8670308 Model Maker Scale: Haim Wu MD #### CP, CDP #### [facility] [address] [place] [address] Model Maker Scale: Pavan Davis MDUrea nitrogen [Mass/Vol]11 mg/dLNormal6-20[facility] HospitalComment on above:Performed By: #### FERI #### [address] 1696908 Model Maker Scale: Haim Wu MD #### CP, CDP #### [facility] [address] [place] [address] Model Maker Scale: Pavan Davis MDHemoglobin A1Con 12-63-5062Zuewutu [Mass/Vol]82 mg/dLNormalAvita Health System Bucyrus HospitalComment on above:Result Comment: The ADA and AACC recommend providing the estimated average glucose result to permit better patient understanding of their HBA1c result.Performed By: #### TEE, AFFRAN #### [facility] [address] [place] [address] Model Maker Scale: Julio C Patino MDHbA1c (Bld) [Mass fraction]4.5 %Normal4.0-6.0 [facility] on above:Performed By: #### TEE, AFFRAN #### [facility] [address] [place] [address] Model Maker Scale: Julio C Patino MDInsulinon 49-24-1973Qcewphp46.5 mU/LNormalAvita Health System Bucyrus HospitalComment on above:Performed By: #### FERI #### [facility] [address] [place] [address] Model Maker Scale: Haim Wu MD #### CP, CDP #### [facility] [address] [place], [place] 4319990 Model Maker Scale: Ondina Bates [facility] MemorialComun[facility] hospital on above:Result Comment: Fastin.6-24.9 30 min: 20-112 60 min: 29-88 90 min: 26-84 120 min: 22-79Performed By: #### FERI #### [facility] [address] [place] [address] [id number] Model Maker Scale: Haim Wu MD #### CP, CDP #### [facility] [address] [place], [place] 3414490 Model Maker Scale: DELMI Bates[address] Comment on above:Performed By: #### FERI #### [facility] [address] [place] [address] Model Maker Scale: Haim Wu MD #### CP, CDP #### [facility] [address] [place], [place] 1529090 Model Maker Scale: Pavan Davis MDIroyavapai regional medical center 40-19-8479Fcmo [Mass/Vol]45 ug/dLNormal 37-145[facility] HospitalComuniversity of mich[facility] hospital on above:Performed By: #### FERI #### [facility] [address] [place] [address] 1160808 Model Maker Scale: Haim Wu MD #### CP, CDP #### [facility] [address] [place], [place] 5206990 Model Maker Scale: Pavan Davis MDLipid Profileon 05-70-8024Awchprostum [Mass/Vol] 121 mg/dLNormal0-199[facility] on above:Result Comment: Cholesterol Guidelines: <200 Desirable 200-240 Borderline >240 UndesirablePerformed By: #### FERI #### [address] [address] Model Maker Scale: Haim Wu MD #### CP, CDP #### [facility] [address] [place], [place] 4090490 Model Maker Scale: Pavan Davis MDCholesterol in HDL [Mass/Vol]33 mg/dLLow>40[facility] on above:Result Comment: HDL Guidelines: <40 Undesirable 40-59 Borderline >59 DesirablePerformed By: #### FERI #### [address] [address] Model Maker Scale: Haim Wu MD #### CP, CDP #### [facility] [address] [place], [place] 6111390 Model Maker Scale: DELMI Batesholesterol in LDL [Mass/Vol]55 mg/dLNormal0-100 [facility] on above:Result Comment: LDL Guidelines: <100 Desirable 100-129 Near to/above Desirable 130-159 Borderline >159 Undesirable Direct (measured) LDL and calculated LDL are not interchangeable tests.Performed By: #### FERI #### [address] [address] Model Maker Scale: Haim Wu MD #### CP, CDP #### [facility] [address] [place], [place] 9546290 Model Maker Scale: DELMI Batesholesterol in VLDL [Mass/Vol]33 mg/dLHigh1-30 [facility] on above:Performed By: #### FERI #### [address] [address] Model Maker Scale: Haim Wu MD #### CP, CDP #### [facility] [address] [place], [place] 6912890 Model Maker Scale: Remi Bates.total/Cholesterol in HDL [Mass ratio] 3.7 {ratio}NormalAvita Health System Bucyrus HospitalComment on above:Performed By: #### FERI #### [address] [address] Model Maker Scale: Haim Wu MD #### CP, CDP #### [facility] [address] [place], [place] 9089290 Model Maker Scale: Pavan Davis MDTriglyceride [Mass/Vol]167 mg/dLHigh<150[facility] HospitalComment on above:Result Comment: Triglyceride Guidelines: <150 Desirable 150-199 Borderline 200-499 High >499 Very high Based on AHA Guidelines for fasting triglyceride, July 2012.Performed By: #### FERI #### [address] [address] Model Maker Scale: Haim Wu MD #### CP, CDP #### [facility] [address] [place] [address] Model Maker Scale: Pavan Davis MD[address] 86-59-1236Odmv T3 [Mass/Vol]3.30 pg/mL Normal2.00-4.40[facility] HospitalComment on above:Performed By: #### FERI #### [facility] [address] [place] [address] Model Maker Scale: Haim Wu MD #### CP, CDP #### [facility] [address] [place], [place] 4305690 Model Maker Scale: Pavan Davis MDFree T3 [Mass/Vol]3.30 pg/mLNormal2.00-4.40[facility] HospitalComment on above:Performed By: #### FERI #### [address] [id number] Model Maker Scale: Haim Wu MD #### CP, CDP #### [facility] [address] [place] [address] Model Maker Scale: Pavan Davis MDTestosterone, Freeon 97-14-7586Hbh Horm Bind Glob 31 nmol/MVgbpdm70-544WjnlvAvita Health System Bucyrus HospitalComment on above:Performed By: #### FERI #### [facility] [employer] [address] [place] [address] Model Maker Scale: Haim Wu MD #### CP, CDP #### [facility] [address] [place] [address] Model Maker Scale: Pavan Davis MDTestosterone [Mass/Vol]11 ng/dLNormal8-48[facility]rus HospitalComment on above:Performed By: #### FERI #### [facility] [address] [place] [address] Model Maker Scale: Haim Wu MD #### CP, CDP #### [facility] [address] [place] [address] Model Maker Scale: Pavan Davis MDTestosterone,Free2.0 pg/mLNormal1.3-9.2MLicking Memorial HospitalComment on above:Result Comment: The concentration of free testosterone is derived from a mathematical expression based on the constant for the binding of testosterone to albumin and/or sex hormone binding globulin.Performed By: #### FERI #### [facility] [address] [place] [address] Model Maker Scale: Haim uW MD #### CP, CDP #### [facility] [address] [place] [address] Model Maker Scale: Pavan Davis MDThyroid Stim. Horm.on 73-64-4792Lqzanek Stim. Horm.0.86 uIU/mLNormal0.30-5.00Mer[facility] Hattiesburg HospitalComment on above:Performed By: #### FERI #### [facility] [address] [place] [address] Model Maker Scale: Haim Wu MD #### CP, CDP #### [facility] [address] [place], [place] [id number] Model Maker Scale: Pavan Davis MDThyroid Stim. Horm.0.86 uIU/mLNormal0.30-5.00[facility] on above:Performed By: #### FERI #### [facility] [address] [place] [address] Model Maker Scale: Haim Wu MD #### CP, CDP #### [facility] [address] [place], [place] [id number] Model Maker Scale: Pavan Davis MDThyroxine T4on [id number] [Mass/Vol]10.9 ug/dL Normal4.5-11.7[facility] on above:Performed By: #### APRADHA, AFFRAN #### [facility] [address] [place] [address] Model Maker Scale: Julio C Patino MDThyroxine, Freeon 60-27-4987Axbzzmqlz, Free1.5 ng/dLNormal0.92-1.68[facility] on above:Performed By: #### FERI #### [facility] [address] [place] [address] Model Maker Scale: Haim Wu MD #### CP, CDP #### [facility] [address] [place], [place] 4014790 Model Maker Scale: Pavan Davis MDVitamin D 25 OHon 98-70-7909Ptiwfie D 25 OH42.2 ng/xLXmnhpo23.0-100.0[facility] on above:Result Comment: Reference Range: Vitamin D status Range Deficiency <20 ng/mL Mild Deficiency 20-30 ng/mL Sufficiency 30-100 ng/mL Toxicity >100 ng/mLPerformed By: #### FERI #### [employer] [address] [place] [address] Model Maker Scale: Haim Wu MD #### CP, JONATHAN #### [facility] [address] [place] [address] Model Maker Scale: Pavan Davis MDUS THYROIDon [id number] THYROIDEXAMINATION: THYROID ULTRASOUND 08/17/2024 COMPARISON: None. HISTORY: ORDERING SYSTEM PROVIDED HISTORY: Chronic lymphocytic thyroiditis FINDINGS: Right thyroid lobe: 4.4 x 2.3 x 2.5cm Left thyroid lobe: 3.5 x 1.1 x 1.3cm Isthmus: 0.5cm Echotexture: Normal Vascularity: Normal Thyroid Nodules: NODULE: 1 Size: 27 x 19 x 24 mm Location: Mid right thyroid 1. Composition: Almost completely solid (2) 2. Echogenicity: Isoechoic (1) 3. Shape: Masgs-lsvm-lfyv (0) 4. Margins: Ill-defined (0) 5. Echogenic [...] Signed by: Mario Stewart DO 08/17/24 Final resultNormalMercy Ruben OlivasUS Thyroid glandon 61-68-4623Jkmrz thyroid nodule as detailed with potential follow-up [...] more than four nodules should be followed. [facility] CONSOLIDATEDEXAMINATION: THYROID ULTRASOUND 08/17/2024 COMPARISON: None. HISTORY: ORDERING SYSTEM PROVIDED HISTORY: Chronic lymphocytic thyroiditis FINDINGS: Right thyroid lobe: 4.4 x 2.3 x 2.5cm Left thyroid lobe: 3.5 x 1.1 x 1.3cm Isthmus: 0.5cm Echotexture: Normal Vascularity: Normal Thyroid Nodules: NODULE: 1 Size: 27 x 19 x 24 mm Location: Mid right thyroid 1. Composition: Almost completely solid (2) 2. Echogenicity: Isoechoic (1) 3. Shape: Pfdla-qrji-wzbj (0) 4. Margins: Ill-defined (0) 5. Echogenic foci: None (0) ACR TI-RADS total points: 3 ACR TI-RADS risk category: TR3 Soft tissues: No visualized lymphadenopathy [facility] Mario Hall DO - 08/17/2024 EXAMINATION: THYROID ULTRASOUND 08/17/2024 [...] (2) 2. Echogenicity: Isoechoic (1) 3. Shape: Ruisr-iqjg-zdfm (0) 4. Margins: Ill-defined (0) 5. Echogenic [...] more than four nodules should be followed. [facility] nGage LabsRadiology Study observation (narrative)[facility] Labs Thyroid glandOrdered By: Mario Stewart on [id number] [facility] [email or web address] Work Phone: Epstein Montalvo Panelon 12-95-9097UAO (VCA) Ab, HzL7212 U/mLHigh<100[facility] HospitalComment on above:Performed By: #### EBVPRO, FERI #### [employer] [address] [place], [place] [id number] Model Maker Scale: Haim Wu MD #### CRP, LIVP #### [facility] [address] [place], [place] 7919190 Model Maker Scale: AUDREY Bates Early Ab, IgG61 U/mLNormal<100[facility] on above:Performed By: #### EBVPRO, FERI #### [facility] [address] [place], [place] 3862608 Model Maker Scale: Haim Wu MD #### CRP, LIVP #### [facility] [address] [place] [address] Model Maker Scale: AUDREY Bates Interpretation(NOTE)NormalSelect [facility]ty [facility] on above:Result Comment: Reference Range: Negative <100 U/mL Positive [...] Clinical Diagnosis and Management by Laboratory Methods; 17th Edition, Rashaad Alarcon M.D.Performed By: #### EBVPRO, FERI #### [facility] [address] [place], [place] 4215808 Model Maker Scale: Haim Wu MD #### CRP, LIVP #### [facility] [address] [place] [address] Model Maker Scale: AUDREY Bates Nuclear Ab, CsO524 U/mLHigh<100[facility]ies[facility] HospitalComment on above:Performed By: #### EBVPRO, FERI #### [place] [address] [place], [place] 6751708 Model Maker Scale: Haim Wu MD #### CRP, LIVP #### [facility] [address] [place], [place] 6538690 Model Maker Scale: Pavan Davis MDEBV (VCA) Ab, IgM16 U/mLNormal<100[facility] HospitalComment on above:Performed By: #### EBVPRO, FERI #### [address] [id number] Model Maker Scale: Haim Wu MD #### CRP, LIVP #### [facility] [address] [place], [place] 3019690 Model Maker Scale: Pavan Davis MDFerritinon 90-01-2981Lfcrrgcg [Mass/Vol]172 ng/mL Wslo82-030QwnvhAvita Health System Bucyrus HospitalComment on above:Result Comment: FERRITIN Reference Ranges: Adult Males 20 - 60 years: 30 - 400 ng/mL Adult females 17 - 60 years: 13 - 150 ng/mL Adults greater than 60 years: no established reference range Pediatrics: no established reference rangePerformed By: #### EBVPRO, FERI #### [address] [id number] Model Maker Scale: Haim Wu MD #### CRP, LIVP #### [facility] [address] [place], [place] 1104990 Model Maker Scale: DELMI Bates-Reactive Proteinon 74-76-2354PZQ [Mass/Vol]mg/L Normal0.0-5.0[facility] HospitalComuniversity of michigan hospital on above:Performed By: #### EBVPRO, FERI #### [address] [id number] Model Maker Scale: Haim Wu MD #### CRP, LIVP #### [facility] [address] [place], [place] 4051790 Model Maker Scale: Pavan Davis MDLiver Profileon 47-49-2433Babvatw [Mass/Vol]4.5 g/dLNormal3.5-5.2[facility] Hospitalment on above:Performed By: #### EBVPRO, FERI #### [address] 2384808 Model Maker Scale: Haim Wu MD #### CRP, LIVP #### [facility] [address] [place], [place] 1217390 Model Maker Scale: Tomy Bates Phos66 U/MFpwuzn51-340AgaidAvita Health System Bucyrus HospitalComuniversity of michigan hospital on above:Performed By: #### EBVPRO, FERI #### [address] 0275508 Model Maker Scale: Haim Wu MD #### CRP, LIVP #### [facility] [address] [place], [place] 5422590 Model Maker Scale: RACHELLE Bates [Catalytic activity/Vol]37 U/LHigh5-33[facility] on above:Performed By: #### EBVPRO, FERI #### [address] [address] Model Maker Scale: Haim Wu MD #### CRP, LIVP #### [facility] [address] [place], [place] 0488190 Model Maker Scale: Pavan Davis MDAST [Catalytic activity/Vol]29 U/LNormal<32[facility] on above:Performed By: #### EBVPRO, FERI #### [address] [address] Model Maker Scale: Haim Wu MD #### CRP, LIVP #### [facility] [address] [place], [place] 6919090 Model Maker Scale: Pavan Davis MDBilirubin [Mass/Vol]0.2 mg/dLLow0.3-1.2MLicking Memorial HospitalComment on above:Performed By: #### EBVPRO, FERI #### [address] [id number] Model Maker Scale: Haim Wu MD #### CRP, LIVP #### [facility] [address] [place], [place] 3385290 Model Maker Scale: Pavan Davis MDBilirubin, IndirectCan not be calculatedNormal 0.0-1.0MerCatholic HealthComment on above:Performed By: #### EBVPRO, FERI #### [address] 0889408 Model Maker Scale: Haim Wu MD #### CRP, LIVP #### [facility] [address] [place], [place] 8385590 Model Maker Scale: Pavan Davis MDBilirubin.indirect [Mass/Vol]mg/dLNormal<0.3MLicking Memorial HospitalComment on above:Performed By: #### EBVPRO, FERI #### [address] 4969608 Model Maker Scale: Haim Wu MD #### CRP, LIVP #### [facility] [address] [place], [place] 3916390 Model Maker Scale: BEN Batesrotein [Mass/Vol]7.7 g/dLNormal6.4-8.3MTuscarawas Hospital on above:Performed By: #### EBVPRO, FERI #### [address] 3529208 Model Maker Scale: Haim Wu MD #### CRP, LIVP #### [facility] [address] [place] [address] Model Maker Scale: Pavan Davis MDFerritinon 27-62-0347Xxncxsqt [Mass/Vol]204 ng/mL Tqax06-813QfwskAvita Health System Bucyrus HospitalComment on above:Result Comment: FERRITIN Reference Ranges: Adult Males 20 - 60 years: 30 - 400 ng/mL Adult females 17 - 60 years: 13 - 150 ng/mL Adults greater than 60 years: no established reference range Pediatrics: no established reference rangePerformed By: #### FERI #### [facility] [address] [place], [place] 1928508 Model Maker Scale: Haim Wu MD #### CP, JONATHAN #### [facility] [address] [place] [address] Model Maker Scale: Pavan Davis [facility]ULSABC with Auto Differentialon 97-25-3898Hqfobdetr (Bld) [#/Vol]0.03 10*3/uLBON SECOURS MERCY HEALTHBasophils/100 WBC (Bld)1 %0 - 2 %[facility] HEALTHEosinophils (Bld) [#/Vol]0.21 10*3/uLBON SECOURS MERCY HEALTHEosinophils/100 WBC (Bld)4 %0 - 5 %[facility]CY HEALTHErythrocyte distribution width (RBC) [Ratio]20.0 %High12.1 - 15.2 %[facility] Hematocrit (Bld) [Volume fraction]38.2 %36.0 - 46.0 %[facility] Hemoglobin (Bld) [Mass/Vol]13.2 g/dL12.0 - 16.0 g/dLBON SECOURS MERCY [facility]ALTH Immature granulocytes (Bld) [#/Vol]0.01 10*3/uLBON SECOURS MERCY HEALTHImmature granulocytes/100 WBC (Bld)0 %0 - 5 %[facility] HEALTHInterpretation and review of laboratory resultsAbnormalBON SECOURS MERCY HEALTHLymphocytes/100 WBC (Bld)26 %15 - 40 %[facility] HEALTHLymphocytes/100 WBC (Bld)1.53 %[facility] (RBC) [Entitic mass]26.6 pg26.0 - 34.0 pgBON CLEVELAND CLINICHC (RBC) [Mass/Vol]34.6 g/dL31.0 - 37.0 g/dLBON SECCLEVELAND CLINIC LUTHERAN HOSPITALV (RBC) [Entitic vol]76.9 fLLow80.0 - 100.0 fLCARILION CLINIC Monocytes/100 WBC (Bld)7 %4 - 8 %[facility]OSPITALMonocytes/100 WBC (Bld) 0.39 %CARILION CLINICMorphology Chad (Bld) [Interp]SLIGHT ANISOCYTOSIS [facility] HOSPITALNeutrophils/100 WBC (Bld)63 %47 - 75 %[facility] HOSPITALPlatelet mean volume (Bld) [Entitic vol]9.4 fL6.0 - 12.0 fLCARILION CLINICPlatelets (Bld) [#/Vol]219 10*3/uLBON AULTMAN HOSPITALRBC (Bld) [#/Vol]4.97 10*6/uL4.00 - 5.20 m/uLCARILION CLINICSegmented neutrophils/100 WBC (Bld)3.77 %CARILION CLINICWBC other (Bld) [#/Vol] 5.9[facility] HOSPITALCBC with Diffon 07-02-2024 Abs. Basophil0.03 k/uLNormal0.00-0.20[facility] HospitalComment on above: Performed By: #### FERI #### [facility] [employer] [facility] [place] [address] Model Maker Scale: Haim Wu MD #### JONATHAN ROMERO #### [facility] [address] [place] [address] Model Maker Scale: Selina Bates.Imm.Granulocyte0.01 k/uLNormal0.00-0.30[facility] HospitalComment on above:Performed By: #### FERI #### [address] [address] Model Maker Scale: Haim Wu MD #### CP, CDP #### [facility] [address] [place], [place] 1209190 Model Maker Scale: Selina Bates.Neutrophil (Seg)3.77 k/uLNormal2.5-7.0[facility] HospitalComment on above:Performed By: #### FERI #### [address] [address] Model Maker Scale: Haim Wu MD #### CP, CDP #### [facility] [address] [place], [place] 7569790 Model Maker Scale: Pavan Davis MDBasophils/100 WBC (Bld)1 %Normal0-2MLicking Memorial HospitalComment on above:Performed By: #### FERI #### [address] [address] Model Maker Scale: Haim Wu MD #### CP, CDP #### [facility] [address] [place], [place] 2339290 Model Maker Scale: Pavan Davis MDEosinophils (Bld) [#/Vol]0.21 10*3/uLNormal 0.00-0.40[facility] HospitalComment on above:Performed By: #### FERI #### [address] [address] Model Maker Scale: Haim Wu MD #### CP, CDP #### [facility] [address] [place], [place] 6120590 Model Maker Scale: Pavan Davis MDEosinophils/100 WBC (Bld)4 %Normal0-5[facility] HospitalComment on above:Performed By: #### FERI #### [address] [id number] Model Maker Scale: Haim Wu MD #### CP, CDP #### [facility] [address] [place], [place] 7865190 Model Maker Scale: Pavan Davis MDImmature granulocytes/100 WBC (Bld)0 %Normal0-5 [facility] HospitalComment on above:Performed By: #### FERI #### [address] 4870008 Model Maker Scale: Haim Wu MD #### CP, CDP #### [facility] [address] [place], [place] 4820490 Model Maker Scale: Pavan Davis MDLymphocytes (Bld) [#/Vol]1.53 10*3/uLNormal 1.00-4.80[facility] HospitalComment on above:Performed By: #### FERI #### [address] [address] Model Maker Scale: Haim Wu MD #### CP, CDP #### [facility] [address] [place], [place] 3404990 Model Maker Scale: Pavan Davis MDLymphocytes/100 WBC (Bld)26 %Qeamvr92-23TkpggSelect Medical Specialty Hospital [facility] on above:Performed By: #### FERI #### [address] [address] Model Maker Scale: Haim Wu MD #### CP, CDP #### [facility] [address] [place], [place] 1898090 Model Maker Scale: AFSHAN Batesonocytes (Bld) [#/Vol]0.39 10*3/uLNormal0.00-1.00 [facility] on above:Performed By: #### FERI #### [address] 2166308 Model Maker Scale: Haim Wu MD #### CP, CDP #### [facility] [address] [place] [address] Model Maker Scale: AFSHAN Batesonocytes/100 WBC (Bld)7 %Normal4-8[facility] HospitalComment on above:Performed By: #### FERI #### [address] 1511908 Model Maker Scale: Haim Wu MD #### CP, CDP #### [facility] [address] [place] [address] Model Maker Scale: AFSHAN Batesorphology Chad (Bld) [Interp]SLIGHTNormalAvita Health System Bucyrus HospitalComment on above:Result Comment: ANISOCYTOSISPerformed By: #### FERI #### [address] 6483808 Model Maker Scale: Haim Wu MD #### CP, CDP #### [facility] [address] [place], [place] 9140090 Model Maker Scale: Pavan Davis MDNeutrophil (Seg)63 %Smqwgc58-62GrmvsAvita Health System Bucyrus HospitalComment on above:Performed By: #### FERI #### [address] [address] Model Maker Scale: Haim Wu MD #### CP, CDP #### [facility] [address] [place], [place] 6006490 Model Maker Scale: Pavan Dvais MDErythrocyte distribution width (RBC) [Ratio]20.0 % High12.1-15.2MLicking Memorial HospitalComment on above:Performed By: #### FERI #### [address] [address] Model Maker Scale: Haim Wu MD #### CP, CDP #### [facility] [address] [place], [place] 3249990 Model Maker Scale: Pavan Davis MDHematocrit (Bld) [Volume fraction]38.2 %Normal 36.0-46.0[facility] HospitalComment on above:Performed By: #### FERI #### [address] 5449408 Model Maker Scale: Haim Wu MD #### CP, CDP #### [facility] [address] [place], [place] 8052290 Model Maker Scale: Pavan Davis MDHemoglobin (Bld) [Mass/Vol]13.2 g/dLNormal 12.0-16.0[facility] HospitalComment on above:Performed By: #### FERI #### [address] 9899008 Model Maker Scale: Haim Wu MD #### CP, CDP #### [facility] [address] [place], [place] 5935090 Model Maker Scale: MARTIN Bates (RBC) [Entitic mass]26.6 dvWundrq78.0-34.0 [facility] HospitalComment on above:Performed By: #### FERI #### [address] 8755808 Model Maker Scale: Haim Wu MD #### CP, CDP #### [facility] [address] [place], [place] 5425990 Model Maker Scale: MARTIN BatesC (RBC) [Mass/Vol]34.6 g/vWMxdgcl89.0-37.0[facility] HospitalComment on above:Performed By: #### FERI #### [address] 5564308 Model Maker Scale: Haim Wu MD #### CP, CDP #### [facility] [address] [place] [address] Model Maker Scale: ANAT Baets (RBC) [Entitic vol]76.9 fLLow80.0-100.0[facility] South Campusment on above:Performed By: #### FERI #### [facility] [address] [place] [address] Model Maker Scale: Haim Wu MD #### CP, CDP #### [facility] [address] [place] [address] Model Maker Scale: Lul Bates mean volume (Bld) [Entitic vol]9.4 fL Normal6.0-12.0[facility] HospitalComment on above:Performed By: #### FERI #### [address] [address] Model Maker Scale: Haim Wu MD #### CP, CDP #### [facility] [address] [place], [place] 7658490 Model Maker Scale: Re Bates (Bld) [#/Vol]219 10*3/iZBlbqqs471-620 [facility] HospitalComment on above:Performed By: #### FERI #### [address] [address] Model Maker Scale: Haim Wu MD #### CP, CDP #### [facility] [address] [place] [address] Model Maker Scale: QUE Bates (Bld) [#/Vol]4.97 10*6/uLNormal4.00-5.20[facility] South Campusment on above:Performed By: #### FERI #### [facility] [address] [place] [address] Model Maker Scale: Haim Wu MD #### CP, CDP #### [facility] [address] [place], [place] 6468490 Model Maker Scale: Pavan Davis MDBROOKLYN HOSPITAL CENTER (d) [#/Vol]5.9 10*3/uLNormal3.5-11.0[facility] HospitalComment on above:Performed By: #### FERI #### [address] [address] Model Maker Scale: Haim Wu MD #### CP, CDP #### [facility] [address] [place] [address] Model Maker Scale: DELMI Batessalt lake regional medical center Metabolic Profon 97-99-2584Cxdobzd [Mass/Vol] 4.6 g/dLNormal3.5-5.2[facility] Medical CenterComment on above:Performed By: #### FERI #### [address] [address] Model Maker Scale: Haim Wu MD #### CP, CDP #### [facility] [address] [place] [address] Model Maker Scale: Tomy Bates Phos64 U/DUqpmsv09-567QpeixAvita Health System Bucyrus HospitalComment on above:Performed By: #### FERI #### [address] [address] Model Maker Scale: Haim Wu MD #### CP, CDP #### [facility] [address] [place], [place] 5920790 Model Maker Scale: RACHELLE Bates [Catalytic activity/Vol]45 U/LHigh5-33[facility] HospitalComment on above:Performed By: #### FERI #### [address] [address] Model Maker Scale: Haim Wu MD #### CP, CDP #### [facility] [address] [place], [place] 7511690 Model Maker Scale: Ibrahima Bates gap [Moles/Vol]11 mmol/LNormal9-17[facility] HospitalComment on above:Performed By: #### FERI #### [address] 1918808 Model Maker Scale: Haim Wu MD #### CP, CDP #### [facility] [address] [place], [place] 6565590 Model Maker Scale: Pavan Davis MDAST [Catalytic activity/Vol]36 U/LHigh<32[facility] HospitalComment on above:Performed By: #### FERI #### [address] [address] Model Maker Scale: Haim Wu MD #### CP, CDP #### [facility] [address] [place] [address] Model Maker Scale: Pavan Davis MDBilirubin [Mass/Vol]0.3 mg/dLNormal0.3-1.2MLicking Memorial HospitalComment on above:Performed By: #### FERI #### [address] [address] Model Maker Scale: Haim Wu MD #### CP, CDP #### [facility] [address] [place] [address] Model Maker Scale: Pavan Davis MDBUN/CRE Jgisk33Vvugox7-73Iywbj [facility] Comment on above:Performed By: #### FERI #### [address] [address] Model Maker Scale: Haim Wu MD #### CP, CDP #### [facility] [address] [place], [place] 4142790 Model Maker Scale: DELMI Batesalcium [Mass/Vol]10.1 mg/dLNormal8.6-10.4[facility] HospitalComment on above:Performed By: #### FERI #### [address] [address] Model Maker Scale: Haim Wu MD #### CP, CDP #### [facility] [address] [place], [place] 8180290 Model Maker Scale: DELMI Bateshloride [Moles/Vol]105 mmol/LWfgilu96-218GyymbAvita Health System Bucyrus HospitalComment on above:Performed By: #### FERI #### [address] 0734208 Model Maker Scale: Haim Wu MD #### CP, CDP #### [facility] [address] [place], [place] 4989390 Model Maker Scale: DELMI BatesO2 [Moles/Vol]24 mmol/KKaubob57-60MwawoAvita Health System Bucyrus HospitalComment on above:Performed By: #### FERI #### [address] [address] Model Maker Scale: Haim Wu MD #### CP, CDP #### [facility] [address] [place], [place] 9952690 Model Maker Scale: DELMI Batesreatinine [Mass/Vol]0.6 mg/dLNormal0.5-0.9[facility] HospitalComment on above:Performed By: #### FERI #### [address] [address] Model Maker Scale: Haim Wu MD #### CP, CDP #### [facility] [address] [place], [place] 2305790 Model Maker Scale: Pavan Davis MDGFR/1.73 sq M.predicted among non-blacks MDRD (S/P/Bld) [Vol rate/Area]mL/min/{1.73_m2}Normal>60[facility] HospitalComuniversity of michigan hospital on above:Result Comment: These results are not intended for [...] or following therapy that affects renal tubular secretion.Performed By: #### FERI #### [address] 8385008 Model Maker Scale: Haim Wu MD #### CP, CDP #### [facility] [address] [place], [place] 3100990 Model Maker Scale: Pavan Davis MDGlucose [Mass/Vol]100 mg/iDMnqd93-42MozcxLicking Memorial HospitalComment on above:Performed By: #### FERI #### [address] 9412808 Model Maker Scale: Haim Wu MD #### CP, CDP #### [facility] [address] [place], [place] 2337890 Model Maker Scale: Pavan Davis MDPotassium [Moles/Vol]4.0 mmol/LNormal3.7-5.3MLicking Memorial HospitalComuniversity of michigan hospital on above:Performed By: #### FERI #### [address] [address] Model Maker Scale: Haim Wu MD #### CP, CDP #### [facility] [address] [place] [id number] Model Maker Scale: Pavan Davis MDProtein [Mass/Vol]7.6 g/dLNormal6.4-8.3MTuscarawas Hospital on above:Performed By: #### FERI #### [facility] [employer] [address] [place] [address] Model Maker Scale: Haim Wu MD #### CP, CDP #### [facility] [address] [place], [place] 6649690 Model Maker Scale: DARSHANA Batesodium [Moles/Vol]140 mmol/ZFtvquu528-830BpnhyAvita Health System Bucyrus HospitalComment on above:Performed By: #### FERI #### [facility] [address] [place] [address] Model Maker Scale: Haim Wu MD #### CP, CDP #### [facility] [address] [place], [place] 3179090 Model Maker Scale: Pavan Davis MDUrea nitrogen [Mass/Vol]10 mg/dLNormal6-20[facility] Bucyrus HospitalComment on above:Performed By: #### FERI #### [facility] [address] [place] [address] Model Maker Scale: Haim Wu MD #### CP, CDP #### [facility] [address] [place], [place] [id number] Model Maker Scale: DELMI Batesomprehensive Metabolic Panelon [id number] [Mass/Vol]4.6 g/dL3.5 - 5.2 g/dLBON AD[facility] HELE[facility] HEALTHALP [Catalytic activity/Vol]64 U/L35 - 104 U/LBON [facility]PITALALT [Catalytic activity/Vol]45 U/LHigh5 - 33 U/LBON [facility] HOSPITALOURS [facility] HOSPITALAnion gap [Moles/Vol]11 mmol/L9 - 17 mmol/LBON [facility] HEALTHAST [Catalytic activity/Vol]36 U/L HighNINF - 32 U/LBON [facility]OSPITALBilirubin [Mass/Vol]0.3 mg/dL0.3 - 1.2 mg/dLBON AULTMAN HOSPITALCalcium [Mass/Vol]10.1 mg/dL8.6 - 10.4 mg/dLBON AULTMAN HOSPITALChloride [Moles/Vol]105 mmol/L98 - 107 mmol/LBON SECRIVERSIDE METHODIST HOSPITALCO2 [Moles/Vol]24 mmol/L20 - 31 mmol/LB[facility] Creatinine [Mass/Vol]0.6 mg/dL0.5 - 0.9 mg/dLBON AULTMAN HOSPITALEst, Glom Filt Rate- PINFBON AULTMAN HOSPITALComment on above: These results are not intended [...] therapy that affects renal tubular secretion. Glucose [Mass/Vol]100 mg/mYJkju70 - 99 mg/dLBON [facility] Interpretation and review of laboratory resultsAbnormalBON [facility] Potassium [Moles/Vol]4.0 mmol/L3.7 - 5.3 mmol/LBON [facility] HOSPITALProtein [Mass/Vol]7.6 g/dL6.4 - 8.3 g/dLBON AULTMAN HOSPITALSodium [Moles/Vol]140 mmol/L135 - 144 mmol/LBON [facility]ULT[facility] HOSPITALUrea nitrogen [Mass/Vol]10 mg/dL6 - 20 mg/dLBON AULTMAN HOSPITALUrea nitrogen/Creatinine [Mass ratio]17 mg/mg9 - 20BON SECRIVERSIDE METHODIST HOSPITALBON SECRIVERSIDE METHODIST HOSPITALCBC with Auto Differentialon [id number] (Bld) [#/Vol]0.03 10*3/uLBON [facility] LU[facility] HOSPITALOURS [facility] Basophils/100 WBC (Bld)1 %0 - 2 %[facility] CLINICEosinophils (Bld) [#/Vol]0.20 10*3/uLBON [facility] MEM[facility]IAL HOSPITALEosinophils/100 WBC (Bld)3 %0 - 5 % CARILION CLINICErythrocyte distribution width (RBC) [Ratio]20.7 %High 12.1 - 15.2 %[facility]CY HEALTHHematocrit (Bld) [Volume fraction]36.7 % 36.0 - 46.0 %[facility] HEALTHHemoglobin (Bld) [Mass/Vol]12.5 g/dL12.0 - 16.0 g/dLBON [facility]OURS MERCY HEALTHImmature granulocytes (Bld) [#/Vol]0.02 10*3/uL [facility]CY HEALTHImmature granulocytes/100 WBC (Bld)0 %0 - 5 %[facility]ITALY HEALTHInterpretation and review of laboratory resultsAbnormalBON SECOURS PIKE COMM[facility] HOSPITALY HEALTHLymphocytes/100 WBC (Bld)26 %15 - 40 %[facility]ALTH Lymphocytes/100 WBC (Bld)1.58 %[facility] CENTERH (RBC) [Entitic mass] 25.9 pgLow26.0 - 34.0 pgBON SECOURS SOUTHWE[facility] GENERAL HEALTH CENTERHC (RBC) [Mass/Vol]34.1 g/dL 31.0 - 37.0 g/dLBON SECOURS [facility] MEMORIAL HOSPITALMCV (RBC) [Entitic vol]76.1 fLLow80.0 - 100.0 fLBON [facility]OURS [facility] HEALTHMonocytes/100 WBC (Bld)7 %4 - 8 %[facility]ITALY HEALTHMonocytes/100 WBC (Bld)0.40 %[facility]ITALY HEALTHMorphology Chad (Bld) [Interp]MODERATE ANISOCYTOSISBON SECOURS [facility] HEALTHNeutrophils/100 WBC (Bld)63 %47 - 75 %[facility]OSPITALY HEALTHPlatelet mean volume (Bld) [Entitic vol]10.0 fL6.0 - 12.0 fLBON SECOURS [facility]KE [facility] HOSPITALY HEALTHPlatelets (Bld) [#/Vol]258 10*3/uLBON SECOURS [facility]KE COMM[facility] HOSPITALY HEALTHRBC (Bld) [#/Vol]4.82 10*6/uL4.00 - 5.20 m/uLBON SECOURS [facility] MEMORIAL HOSPITALSegmented neutrophils/100 WBC (Bld)3.76 %BON [facility] MEMORIAL HOSPITALWBC other (Bld) [#/Vol]6.0BON SECOURS [facility]IAL HOSPITALBON SECCHRISTUS [facility] HE[facility] Laboratory - Chemistry and Chemistry - challengeon [id number] [Mass/Vol]9.8 ug/dLInvalid Interpretation [place] [facility] TS Qn0.84 m[IU]/LInvalid Interpretation [place] [facility] No Panel Informationon [id number] Interpretation [facility] LawtonAkermin [facility] Testosterone, Freeon [id number] and review of laboratory resultsAbnormalSENTARA [facility] DattoSex hormone binding globulin [Moles/Vol]29 nmol/LLow30 - 135 nmol/LB[address] LUKE'S HOSPITALAdvanced BioHealing Testosterone [Mass/Vol]16 ng/dLLow20 - 70 ng/dLBON TEMPE ST. LUKE'S HOSPITALAdvanced BioHealing Testosterone Free/Testosterone.total [Mass fraction]3.1 pg/mL1.3 - 9.2 pg/mLBROCKTON VA MEDICAL CENTERAdvanced BioHealingComment on above:The concentration of free testosterone is derived from a mathematical expression based on the constant for the binding of testosterone to albumin and/or sex hormone binding globulin. [facility] DattoLaboratory - Chemistry and Chemistry - challengeon [id number] Qn0.55 m[IU]/LInvalid Interpretation [facility] HealthAdvanced BioHealing T4 [Mass/Vol]9.9 ug/dLInvalid Interpretation Code42 no Panel Informationon [id number] Interpretation [facility] LawtonEnvision Pharmaceutical TSHon [id number] [facility] ST[facility] LUKE'S HOSPITALAdvanced BioHealingUS ABDOMEN LIMITED Specify organ? LIVER, PANCREAS, GALLBLADDERon [id number] shows increased echogenicity suggesting hepatic steatosis without focal lesion. Prior cholecystectomy [facility] RIS CONSOLIDATEDEXAMINATION: RIGHT UPPER QUADRANT ULTRASOUND 10/10/2022 10:35 am [...] No evidence of right upper quadrant ascites. [facility] Mario Hall, DO - 10/10/2022 EXAMINATION: RIGHT UPPER QUADRANT ULTRASOUND 10/10/2022 10:35 am COMPARISON: December 14, 2021 HISTORY: ORDERING SYSTEM PROVIDED HISTORY: [facility] pain TECHNOLOGIST PROVIDED HISTORY: Specify organ?->LIVER Specify [...] hepatic steatosis without focal lesion. Prior cholecystectomy [employer] Work Phone: radiology Study observation (narrative)[employer] Work Phone: US ABDOMEN LIMITED Specify organ? LIVER, PANCREAS, GALLBLADDEROrdered By: Mario Stewart on [id number] Halalati Phone: Laboratory - Microbiology and Antimicrobial susceptibilityon [id number] 16+18+31+33+35+45+51+52+56 DNA Probe Ql (Cvx)HPV- DNA TestInvalid Interpretation [facility] Medical CenterImmune System Therapeutics us NON OB TRANSVAGINALon . Largest right ovarian follicle measures 8 mm. Largest left ovarian follicle measures 6 mm. 2. Fibroid uterus with largest fibroid at the posterior uterine body measuring 3 cm. 3. Endometrial stripe thickness measuring 1.3 cm, within normal limits. RECOMMENDATIONS: Multiple ovarian cysts. Most severe: Subcentimeter right ovarian follicle, normal finding. No follow-up imaging is recommended. Reference: Radiology 2019 Nov;293(2):359-371 [facility] CONSOLIDATEDEXAMINATION: PELVIC ULTRASOUND 03/14/2022 TECHNIQUE: Transvaginal pelvic ultrasound [...] Free Fluid: No evidence of free fluid. [facility] - 03/14/2022 EXAMINATION: PELVIC ULTRASOUND [...] imaging is recommended. Reference: Radiology 2019 Nov;293(2):359-371 [email or web address] Phone: radiology Study observation (narrative)[email or web address] Phone: US NON OB TRANSVAGINALOrdered By: Connor Peraltai on [id number] [employer] Work Phone: Laboratory - Chemistry and Chemistry - challengeon [id number] [Mass/Vol]10.3 ug/dLInvalid Interpretation Code42 tsh Qn1.01 m[IU]/LInvalid Interpretation [employer]No Panel Informationon [id number] Interpretation Code42 TSHon [id number] HealthProgesteroneon 12-30-2021 Solibavqcins49.86 ng/[email or web address] on above: FEMALE (healthy): Follicular phase 0.06-0.89 Ovulation phase 0.12-12.00 Luteal phase 1.83-23.90 Postmenopausal <0.13 [employer] ABDOMEN LIMITED Specify organ? LIVER, GALLBLADDER, PANCREASon [id number] diffuse hepatic fatty infiltration. [facility] RIS CONSOLIDATEDEXAMINATION: RIGHT UPPER QUADRANT ULTRASOUND 12/14/2021 8:13 am [...] No evidence of right upper quadrant ascites. Zachary Oscar MD - 12/14/2021 EXAMINATION: RIGHT UPPER QUADRANT [...] ascites. IMPRESSION: Likely diffuse hepatic fatty infiltration. [employer] Phone: radiology Study observation (narrative)[employer] Phone: US ABDOMEN LIMITED Specify organ? LIVER, GALLBLADDER, PANCREASOrdered By: Zachary Garduno on [id number] Phone: cbC Auto Differentialon [id number] Eos #0.18 [email or web address] Immature Granulocyte0.03MerRollbase (acquired by [employer]) HealthAbsolute Lymph #1.98 [email or web address] [place] #0.40MerRollbase (acquired by [employer]) HealthBasophils (Bld) [#/Vol]0.06 10*3/uL [facility] [place] HealthBasophils/100 WBC (Bld)1 %0 - 2 %[facility] HealthDifferential TypeNOT REPORTEDMerRollbase (acquired by [employer]) HealthEosinophils/100 WBC (Bld)3 %1 - 4 %[facility] HealthHematocrit (Bld) [Volume fraction]37.7 %36.3 - 47.1 %[facility] Hemoglobin.gastrointestinal spec 1 Ql (Stl)12.0 g/dL11.9 - 15.1 g/dLOhiohealth Berger Hospital Immature granulocytes/100 WBC (Bld)1 %Xcih4DobpmOhiohealth Berger HospitalInterpretation and review of laboratory resultsAbnormalOhiohealth Berger HospitalLymphocytes/100 WBC (Bld)31 %24 - 43 % [facility] HospitalH (RBC) [Entitic mass]25.6 pg25.2 - 33.5 pgDayton Osteopathic HospitalHC (RBC) [Mass/Vol]31.8 g/dL28.4 - 34.8 g/dLDayton Osteopathic HospitalV (RBC) [Entitic vol]80.6 fLLow 82.6 - 102.9 fLOhiohealth Berger HospitalMonocytes/100 WBC (Bld)6 %3 - 12 %[facility] HospitalNRBC Automated0.00.0 per 100 WBCOhiohealth Berger HospitalPlatelet distribution width (Bld) [Ratio] 16.0 %High11.8 - 14.4 %[facility] HospitalPlatelet EstimateNOT REPORTEDOhiohealth Berger Hospital Platelet mean volume (Bld) [Entitic vol]9.7 fL8.1 - 13.5 fLOhiohealth Berger HospitalPlatelets (Bld) [#/Vol]256 10*3/uLOhiohealth Berger HospitalRBC (Bld) [#/Vol]4.68 10*6/uL3.95 - 5.11 m/uLOhiohealth Berger HospitalRBC (Bld) [#/Vol]NOT REPORTEDOhiohealth Berger HospitalSegmented neutrophils/100 WBC (Bld)58 %36 - 65 %[facility] HospitalSegs Absolute3.84[facility] WBC (Bld) [#/Vol]6.5 10*3/uLOhiohealth Berger HospitalWBC (Bld) [#/Vol]NOT REPORTEDUniversity [facility] HealthComprehensive Metabolic Panelon [id number] [Mass/Vol] 4.3 g/dL3.5 - 5.2 g/dLOhiohealth Berger HospitalAlbumin/Globulin [Mass ratio]1.4 {ratio}[facility] HospitalALP (Bld) [Catalytic activity/Vol]42 U/L35 - 104 U/LMerc HealthALT [Catalytic activity/Vol]55 U/LHigh5 - 33 U/LMercy HealthAnion gap [Moles/Vol]17 mmol/L9 - 17 mmol/LMercy HealthAST [Catalytic activity/Vol]47 U/LHigh<32MerMerged with Swedish HospitalBilirubin [Mass/Vol]0.27 mg/dLLow0.3 - 1.2 mg/dLSelect [facility] HealthCalcium [Mass/Vol]9.9 mg/dL8.6 - 10.4 mg/dLSelect [facility], [facility] HealthChloride [Moles/Vol]98 mmol/L98 - 107 mmol/LMercy HealthCO2 [Moles/Vol]23 mmol/L20 - 31 mmol/LMercy Health Creatinine [Mass/Vol]0.79 mg/dL0.50 - 0.90 mg/dLOhiohealth Berger HospitalFree PSA/Total PSA [Mass fraction]7.3 g/dL6.4 - 8.3 g/dLOhiohealth Berger HospitalGFR >60>60 mL/minSelect Medical Specialty [facility], Inc HealthGFR Non->60>60 mL/minSelect Medical Specialty [facility], Inc HealthGlucose [Mass/Vol]96 mg/dL70 - 99 mg/dLOhiohealth Berger HospitalInterpretation and review of laboratory resultsAbnormalSelect [facility], Inc HealthPotassium [Moles/Vol]3.5 mmol/LLow3.7 - 5.3 mmol/LMercy HealthSodium [Moles/Vol]138 mmol/L135 - 144 mmol/LMercy Health Urea nitrogen (BldV) [Mass/Vol]11 mg/dL6 - 20 mg/dLOhiohealth Berger HospitalUrea nitrogen/Creatinine (Bld) [Mass ratio]14[facility] ServicesLaboratory - Chemistry and Chemistry - challengeon [id number]/1.73 sq M.predicted MDRD (S/P/Bld) [Vol rate/Area][facility] HospitalComment on above:Average GFR for 30-39 years old: 107 mL/min/1.73sq m Chronic Kidney Disease: <60 mL/min/1.73sq m Kidney failure: <15 mL/min/1.73sq m eGFR calculated using average adult body mass. Additional eGFR calculator available at: http://www.[employer].EquityNet/multiple_crcl_2011.htm Stage 1: Some kidney damage normal GFR Stage 2: Mild kidney damage GFR 60-89 Stage 3: Moderate kidney damage GFR 30-59 Stage 4: Severe kidney damage GFR 15-29 Stage 5: Severe kidney damage GFR <15 ESRD - chronic treatment by dialysis or transplant COVID-19Ordered By: Sylvain Orellana on [id number]-CoV-2 (COVID-19) RNA ERICA+probe Ql (Unsp spec)[facility] Bluffton HospitalCircl Phone: [phone]-UgH-2 (COVID-19) RNA ERICA+probe Ql (Unsp spec)Not detectedNot DetectedCleveland Clinic Akron GeneralSancilio and Company Phone: comment on above: The specimen is NEGATIVE for SARS-CoV-2, the novel coronavirus associated with COVID-19. A negative result does not rule out COVID-19. Rogerio SARS-CoV-2 for use on the [employer]0/8800 Systems is a real-time RT-PCR test intended [...] this assay. Fact sheet for Healthcare Providers: https://www.fda.gov/media/057009/download Fact sheet for Patients: https://www.fda.gov/media/459721/download METHODOLOGY: RT-PCR Source.NASOPHARYNGEAL SWABCleveland Clinic Akron GeneralSancilio and Company Phone: [facility] GeneralSancilio and Company Phone: cBC With Auto DifferentialOrdered By: Lizbet Lr on [id number] Eos #0.10[facility] GeneralSancilio and Company Phone: absolute Immature Granulocyte0.03[facility] GeneralSancilio and Company Phone: absolute Lymph #1.48[facility] GeneralSancilio and Company Phone: absolute [place] #0.36[facility] GeneralSancilio and Company Phone: basophils (Bld) [#/Vol]0.04 10*3/uLCleveland Clinic Akron GeneralSancilio and Company Phone: basophils/100 WBC (Bld)1 %0 - 2 %[employer] Phone: differential TypeNOT REPORTEDCleveland Clinic Akron GeneralSancilio and Company Phone: eosinophils/100 WBC (Bld)2 %1 - 4 %[employer] Phone: Hematocrit (Bld) [Volume fraction]36.2 %Low36.3 - 47.1 %[employer] Phone: Hemoglobin.gastrointestinal spec 1 Ql (Stl)11.5 g/dL Low11.9 - 15.1 g/dLCleveland Clinic Akron GeneralSancilio and Company Phone: Immature granulocytes/100 WBC (Bld)1 %Eexw0YapmuSancilio and Company Phone: Interpretation and review of laboratory results AbnormalCleveland Clinic Akron GeneralSancilio and Company Phone: lymphocytes/100 WBC (Bld)29 %24 - 43 %[employer] Phone: MCH (RBC) [Entitic mass]25.4 pg25.2 - 33.5 pgCleveland Clinic Akron GeneralSancilio and Company Phone: MCHC (RBC) [Mass/Vol]31.8 g/dL28.4 - 34.8 g/dLCleveland Clinic Akron GeneralSancilio and Company Phone: MCV (RBC) [Entitic vol]79.9 fLLow82.6 - 102.9 fLCleveland Clinic Akron GeneralSancilio and Company Phone: Monocytes/100 WBC (Bld)7 %3 - 12 %[employer] Phone: NRBC Automated0.00.0 per 100 WBCStylect Phone: platelet distribution width (Bld) [Ratio]13.4 %11.8 - 14.4 %[employer] Phone: platelet EstimateNOT REPORTEDCleveland Clinic Akron GeneralSancilio and Company Phone: platelet mean volume (Bld) [Entitic vol]10.3 fL8.1 - 13.5 fLCleveland Clinic Akron GeneralSancilio and Company Phone: Platelets (Bld) [#/Vol]280 10*3/[email or web address] Work Phone: RBC (Bld) [#/Vol]4.53 10*6/uL3.95 - 5.11 m/uLStylect Phone: RBC (Bld) [#/Vol]NOT REPORTEDCleveland Clinic Akron GeneralSancilio and Company Phone: Segmented neutrophils/100 WBC (Bld)60 %36 - 65 %Stylect Phone: Segs Absolute3.14[facility] GeneralSancilio and Company Phone: WBC (Bld) [#/Vol]5.2 10*3/uLStylect Phone: WBC (Bld) [#/Vol]NOT REPORTEDCleveland Clinic Akron GeneralSancilio and Company Phone: [facility] GeneralSancilio and Company Phone: comprehensive Metabolic PanelOrdered By: Lizbet Lr on [id number] [Mass/Vol]4.8 g/dL3.5 - 5.2 g/dLStylect Phone: Albumin/Globulin [Mass ratio]1.5 {ratio}[employer] Phone: ALP (Bld) [Catalytic activity/Vol]56 U/L35 - 104 U/L [employer] Phone: ALT [Catalytic activity/Vol]49 U/LHigh5 - 33 U/LMaultman hospitalLiveVox Work Phone: anion gap [Moles/Vol]16 mmol/L9 - 17 mmol/LMercy Health Work Phone: aST [Catalytic activity/Vol]44 U/LHigh<32Mer CurrencyBird Work Phone: bilirubin [Mass/Vol]0.44 mg/dL0.3 - 1.2 mg/dLSelect Medical Specialty [facility] [employer] Work Phone: calcium [Mass/Vol]9.7 mg/dL8.6 - 10.4 mg/dLSelect [facility] Specialty [facility] [employer] Work Phone: chloride [Moles/Vol]101 mmol/L98 - 107 mmol/LMaultman hospitaly [employer]rencyBird Work Phone: cO2 [Moles/Vol]23 mmol/L20 - 31 mmol/LMaultman hospitaly [employer]Bird Work Phone: creatinine [Mass/Vol]0.66 mg/dL0.50 - 0.90 mg/dLSelect [facility] Specialty [facility] [employer] Work Phone: Free PSA/Total PSA [Mass fraction]8.1 g/dL6.4 - 8.3 g/dLSelect Medical Specialty [facility] [employer] Work Phone: GFR >60>60 mL/minSelect Medical Specialty Hospital [facility], Inc [employer] Work Phone: GFR Non->60>60 mL/minSelect Medical Specialty Hospital - [facility], Inc [employer] Work Phone: Glucose [Mass/Vol]109 mg/yUDqoh28 - 99 mg/dLSelect Medical Specialty Hospital [facility], [facility] [employer] Work Phone: Interpretation and review of laboratory results AbnormalSelect Medical Specialty Hospital [facility], [facility] [employer] Work Phone: potassium [Moles/Vol]3.8 mmol/L3.7 - 5.3 mmol/LMercy Health Work Phone: sodium [Moles/Vol]140 mmol/L135 - 144 mmol/LMercy Health Work Phone: Urea nitrogen (BldV) [Mass/Vol]13 mg/dL6 - 20 mg/dL [employer] Phone: Urea nitrogen/Creatinine (Bld) [Mass ratio]20[facility] GeneralSancilio and Company Phone: [facility] GeneralSancilio and Company Phone: laboratory - Chemistry and Chemistry - challenge Ordered By: Lizbet Lr on [id number]/1.73 sq M.predicted MDRD (S/P/Bld) [Vol rate/Area][employer] Phone: comment on above:Average GFR for 30-39 years old: 107 mL/min/1.73sq m Chronic Kidney Disease: <60 mL/min/1.73sq m Kidney failure: <15 mL/min/1.73sq m eGFR calculated using average adult body mass. Additional eGFR calculator available at: http://www.[employer] Ghoster/multiple_crcl_2011.htm Stage 1: Some kidney damage normal GFR Stage 2: Mild kidney damage GFR 60-89 Stage 3: Moderate kidney damage GFR 30-59 Stage 4: Severe kidney damage GFR 15-29 Stage 5: Severe kidney damage GFR <15 ESRD - chronic treatment by dialysis or transplant hCG, Quantitative, PregnancyOrdered By: Jesica Cantor on [id number] Quant<1<5 IU/LMaultman hospitalCircl Phone: comment on above: Non-preg premeno <=5 Postmeno <=8 Male <=3 If HCG results do not concur with clinical observations, additional testing to confirm results is recommended. Elevated results not associated with may be found in patients with other diseases such as tumors of the germ cells (testis, ovaries, etc.), bladder, pancreas, stomach, lungs, and liver. [employer] Phone: Otheron [id number] Interpretation Code [facility] [employer] t4on [id number] and review of laboratory resultsAbnormalCleveland Clinic Akron GeneralTeleSign Corporation Work Phone: T4, Total11 ug/dLHigh4.5 - 10.9 ug/dLSelect Medical Specialty [facility], [facility] [employer] Work Phone: Thyroidon [id number] Qn0.60 m[IU]/LInvalid Interpretation CodeCleveland Clinic Akron GeneralTeleSign Corporation Work Phone: T4 [Mass/Vol]11.0 HInvalid Interpretation Code [facility] [employer] Hepatic Function Panelon [id number] [Mass/Vol] 4.9 g/dL3.5 - 5.2 g/dLSelect [facility] Specialty [facility], Inc Health- [place], [place]Albumin/Globulin [Mass ratio]1.9 {ratio}[facility] Hospitaly Health- [place], KYALP [Catalytic activity/Vol]48 U/L35 - 104 U/LMcleveland clinic foundation Health- [place], KYALT [Catalytic activity/Vol]66 U/LHigh5 - 33 U/LMcleveland clinic foundation Health- [place], KYAST [Catalytic activity/Vol]44 U/LHigh<32Mer Health- [place], KYBilirubin Ql (U) 0.40 mg/dL0.3 - 1.2 mg/dLSelect [facility] Health- [place], KYBilirubin, IndirectCANNOT BE CALCULATED0 - 1 mg/dLMer Health- [place], KYBilirubin.direct [Mass/Vol]mg/dL<0.31 mg/dLSelect Medical Specialty [facility] Health- [place], KYGlobulin (S) [Mass/Vol]NOT REPORTED1.5 - 3.8 g/dLSelect Medical Specialty [facility] Health- [place], KYInterpretation and review of laboratory resultsAbnormalMer Health- [place], KYProtein [Mass/Vol]7.5 g/dL6.4 - 8.3 g/dLSelect [facility] Specialty [facility] Health- [place], [place] Hepatitis Panel, Acuteon [id number] IgM IA Qn (S)NONREACTIVENONREACTIVESelect Medical Specialty [facility], Inc Health- [place], KYHep B Core Ab, IgMNONREACTIVENONREACTIVESelect Medical Specialty [facility] Inc Health- [place], [place] Hepatitis B Surface AgNONREACTIVENONREACTIVEOhiohealth [facility] Hospital- [place], KYHepatitis C Ab NONREACTIVENONREACTIVEOhiohealth Berger Hospital- [place], KYComment on above: The hepatitis C procedure used [...] HCV RNA by PCR. HCG Qualitative, Serumon [id number] QualNegativeNEGATIVELanse, [place] Comment on above:Specimens with hCG levels near the threshold of the test (25 mIU/mL) may give a negative or indeterminate result. In such cases, another test should be performed with a new specimen in 48-72 hours. If early is suspected clinically in this setting, correlation with quantitative serum b-hCG level is suggested. [facility] Bluffton HospitalDatacratic has confirmed the use of plasma for this test. This has not been cleared or approved by the U.S. Food and Drug Administration. The FDA has determined that such clearance is not necessary. CBC Auto Differentialon [id number] (Bld) [#/Vol]0.04 10*3/[place], [place]Basophils/100 WBC (Bld)1 %0 - 2 %[place], KYDifferential TypeNOT REPORTEDLanse, KYEosinophils (Bld) [#/Vol]0.07 10*3/[place], KYEosinophils/100 WBC (Bld)1 %1 - 4 %[place], KYErythrocyte distribution width (RBC) [Ratio]12.7 %11.8 - 14.4 %[place] Hematocrit (Bld) [Volume fraction]39.3 %36.3 - 47.1 %[place] Hemoglobin (Bld) [Mass/Vol]13.1 g/dL11.9 - 15.1 g/dLLanse, KYImmature granulocytes (Bld) [#/Vol]1 %Uiuq3Srcy[address] [place], [place] [address]Immature granulocytes (Bld) [#/Vol]0.03 10*3/[place], KYInterpretation and review of laboratory resultsAbnormGarnavillo, KYLymphocytes (Bld) [#/Vol]1.89 10*3/[place], KYLymphocytes/100 WBC (Bld)30 %24 - 43 %[facility]- [place], KYMCH (RBC) [Entitic mass]27.0 pg25.2 - 33.5 pgOhiohealth Berger Hospital- [place], KYMCHC (RBC) [Mass/Vol]33.3 g/dL28.4 - 34.8 g/dLOhiohealth Berger Hospital- [place], KYMCV (RBC) [Entitic vol]81.0 fLLow82.6 - 102.9 fLOhiohealth Berger Hospital- [place], KYMonocytes (Bld) [#/Vol]0.38 10*3/uLOhiohealth Berger Hospital- [place], KYMonocytes/100 WBC (Bld)6 %3 - 12 %[facility]- [place], DARBYPlatelet mean volume (Bld) [Entitic vol]9.9 fL8.1 - 13.5 fLOhiohealth Berger Hospital- [place], KYPlatelets (Bld) [#/Vol]NOT REPORTEDOhiohealth Berger Hospital- [place], DARBYPlatelets (Bld) [#/Vol] 258 10*3/uLOhiohealth Berger Hospital- [place], DARBYRBC (Bld) [#/Vol]4.85 10*6/uL3.95 - 5.11 m/uL [facility]- [place], SCRBC morphology finding Nom (Bld)NOT REPORTEDGalion Hospital [place], DARBYSegmented neutrophils/100 WBC (Bld)61 %36 - 65 %[facility]- [place], DARBYSegs Absolute3.88[facility]- [place], KYWBC (Bld) [#/Vol]6.3 10*3/uLOhiohealth Berger Hospital- [place], [place] WBC (Bld) [#/Vol]0.0 10*3/uL0.0 per 100 WBCOhiohealth Berger Hospital- [place], KYWBC MorphologyNOT REPORTEDOhiohealth Berger Hospital- [place], DARBYComprehensive Metabolic Panelon [id number] [Mass/Vol]5 g/dL3.5 - 5.2 g/dLOhiohealth Berger Hospital- [place], KYAlbumin/Globulin [Mass ratio] 1.6 {ratio}[facility]- [place], KYALP [Catalytic activity/Vol]51 U/L35 - 104 U/L [facility]- [place], KYALT [Catalytic activity/Vol]80 U/LHigh5 - 33 U/LMercy Health- [place], KYAnion gap [Moles/Vol]12 mmol/L9 - 17 mmol/LMercy Health- [place], KYAST [Catalytic activity/Vol]51 U/LHigh<32[facility]- [place], KYBilirubin Ql (U)0.62 mg/dL0.3 - 1.2 mg/dLSelect [facility]- [place], KYBun/Cre Ssezs30Unmxf [facility]- [place], [place] Calcium [Mass/Vol]10.2 mg/dL8.6 - 10.4 mg/dLSelect [facility]- [place], KYChloride [Moles/Vol]97 mmol/LLow98 - 107 mmol/LMercy Health- [place], KYCO2 [Moles/Vol]28 mmol/L20 - 31 mmol/LMercy Health- [place], KYCreatinine [Mass/Vol]0.68 mg/dL0.5 - 0.9 mg/dLSelect [facility]- [place], KYGFR >60>60 mL/minSelect [facility]ty [facility]- [place] GFR Non->60>60 mL/minSelect [facility]ty [facility]- [place], KYGlucose [Mass/Vol]96 mg/dL70 - 99 mg/dLOhiohealth Berger Hospital- [place], KYInterpretation and review of laboratory resultsAbnormalOhiohealth Berger Hospital- [place], KYPotassium [Moles/Vol]3.2 mmol/LLow3.7 - 5.3 mmol/LMaultman hospitaly Health- [place], KYProtein [Mass/Vol]8.1 g/dL6.4 - 8.3 g/dLSelect [facility]- [place], KYSodium [Moles/Vol]137 mmol/L135 - 144 mmol/LMaultman hospitaly [facility]- [place], KYUrea nitrogen [Mass/Vol]12 mg/dL6 - 20 mg/dLOhiohealth Berger Hospital- [place], KYInsulin, totalon [id number] Coag (Bld) [Relative time][facility], KYComment on above: Fastin.6-24.9 30 min: 20-112 60 min: 29-88 90 min: 26-84 120 min: 22-79 Epdklnr44.5 mU/LMaultman hospitaly Health- [place], KYInsulin Comment.BLOODOhiohealth Berger Hospital- [place], [place] Ironon 24-95-2340Tbej [Mass/Vol]53 ug/dL37 - 145 ug/dLLanse, [place] Magnesiumon 05-71-7671Vpnwqqmvn [Mass/Vol]2.0 mg/dL1.6 - 2.6 mg/dLLanse, KYMetabolic Panelon 23-51-2633BVZ/1.73 sq M predicted among non-blacks MDRD (S/P/Bld) [Vol rate/Area][place], KYComment on above:Average GFR for 30-39 years old: 107 mL/min/1.73sq m Chronic Kidney Disease: <60 mL/min/1.73sq m Kidney failure: <15 mL/min/1.73sq m eGFR calculated using average adult body mass. Additional eGFR calculator available at: http://www.IP Ghoster/multiple_crcl_2012.htm Stage 1: Some kidney damage normal GFR Stage 2: Mild kidney damage GFR 60-89 Stage 3: Moderate kidney damage GFR 30-59 Stage 4: Severe kidney damage GFR 15-29 Stage 5: Severe kidney damage GFR <15 ESRD - chronic treatment by dialysis or transplant T4, Freeon [id number], Free1.67 ng/dL0.93 - 1.7 ng/dLLanse, KYTSH without Reflexon [id number] Qn1.28 m[IU]/LMBallinger, KYVitamin D 25 Hydroxyon 90-50-2492Jip D, 25-Qisepcr26.6 ng/mL30 - 100 ng/mLLanse, KYComment on above: Reference Range: Vitamin D status Range Deficiency <20 ng/mL Mild Deficiency 20-30 ng/mL Sufficiency 30-100 ng/mL Toxicity >100 ng/mL COVID-19on [id number]-CoV-2Not DetectedNot DetectedLanse, [place] Comment on above: The specimen is NEGATIVE for SARS-CoV-2, the novel coronavirus associated with COVID-19. A negative result does not rule out COVID-19. This test has been authorized by the FDA under an Emergency Use Authorization (EUA) for use by authorized laboratories. [employer] SARS-CoV-2 Reagents for [facility] are designed to detect the virus that causes COVID-19 in patients with signs and symptoms of infection who are suspected of COVID-19. An individual without symptoms of COVID-19 and who is not shedding SARS-CoV-2 virus would expect to have a negative (not detected) result in this assay. Fact sheet for Healthcare Providers: https://www.fda.gov/media/399429/download Fact sheet for Patients: https://www.fda.gov/media/647212/download METHODOLOGY: RT-PCR BUTR-SnV-2[facility]kn [facility]- [place], XOMLLF-HkH-9, RapidPro[facility], [facility] .NASOPHARYNGEAL SWABProMedica Defiance [facility] Hospital, [facility] Auto Differentialon 06-17-2020 Basophils (Bld) [#/Vol]0.00 10*3/[facility], SCBasophils/100 WBC (Bld)0 %0 - 2 %[facility], SCDifferential TypeYESMJoint Township District Memorial Hospital, KYEosinophils (Bld) [#/Vol]0.10 10*3/[facility], KYEosinophils/100 WBC (Bld)1 %0 - 5 % [facility], SCErythrocyte distribution width (RBC) [Ratio]13.9 %12.1 - 15.2 %[facility], SCHematocrit (Bld) [Volume fraction]38.4 %36 - 46 %[place], KYHemoglobin (Bld) [Mass/Vol]13.2 g/dL12 - 16 g/dLProMedica Defiance Regional Hospital, SCLymphocytes (Bld) [#/Vol]1.60 10*3/[facility], KYLymphocytes/100 WBC (Bld)22 %15 - 40 %[facility], SCMCH (RBC) [Entitic mass]27.7 pg26 - 34 pg [facility], SCMCHC (RBC) [Mass/Vol]34.3 g/dL31 - 37 g/dLProMedica Defiance [facility] Hospital, SCMCV (RBC) [Entitic vol]80.8 fL80 - 100 fLProMedica Defiance Regional Hospital, SCMonocytes (Bld) [#/Vol]0.40 10*3/uLMercy Health- [place], KYMonocytes/100 WBC (Bld)6 %4 - 8 %[facility] [place], KYPlatelet mean volume (Bld) [Entitic vol]NOT REPORTED6 - 12 fLMercy Health- [place], KYPlatelets (Bld) [#/Vol]254 10*3/uLMercy Health- [place], KYPlatelets (Bld) [#/Vol]NOT REPORTEDMercy Health- [place], KYRBC (Bld) [#/Vol]4.75 10*6/uL4 - 5.2 m/uLMercy Health- [place], KYRBC morphology finding Nom (Bld)NOT REPORTEDSelect [facility]- [place], KYSegmented neutrophils/100 WBC (Bld)71 %47 - 75 %[facility]- [place], KYSegs Absolute5.20[facility]- [place], KYWBC (Bld) [#/Vol]NOT REPORTEDper 100 WBC [facility]- [place], KYWBC (Bld) [#/Vol]7.3 10*3/uLCleveland Clinic Akron Generalcy Health- [place], KYWBC MorphologyNOT REPORTEDCleveland Clinic [facility] Generalcy [facility]- [place], KYComprehensive Metabolic Panel w/ Reflex to MGon [id number] [Mass/Vol]5.1 g/dL3.5 - 5.2 g/dLMercy Health- [place], KYAlbumin/Globulin [Mass ratio]NOT REPORTEDCleveland Clinic Akron Generalcy [facility]- [place], KYALP [Catalytic activity/Vol]52 U/L35 - 104 U/LMercy Health- [place], KYALT [Catalytic activity/Vol]96 U/LHigh5 - 33 U/LMercy Health- [place], KYAnion gap [Moles/Vol]13 mmol/L9 - 17 mmol/LMercy Health- [place], KYAST [Catalytic activity/Vol]66 U/LHigh<32 [facility]- [place], KYBilirubin Ql (U)0.57 mg/dL0.3 - 1.2 mg/dLMercy Health- [place], KYBun/Cre Stvdc29Ypxqp Health- [place], KYCalcium [Mass/Vol]10.3 mg/dL8.6 - 10.4 mg/dLMercy Health- [place], KYChloride [Moles/Vol]102 mmol/L98 - 107 mmol/[facility], KYCO2 [Moles/Vol]24 mmol/L20 - 31 mmol/[facility], [place] Creatinine [Mass/Vol]0.68 mg/dL0.5 - 0.9 mg/dLProMedica Def[facility], KYGFR >60>60 mL/minProMedica Defiance Regional Hospital, KYGFR Non->60>60 mL/min [facility], KYGFR/1.73 sq M predicted among non-blacks MDRD (S/P/Bld) [Vol rate/Area][facility], SCComment on above:Average GFR for 30-39 years old: 107 mL/min/1.73sq m Chronic Kidney Disease: <60 mL/min/1.73sq m Kidney failure: <15 mL/min/1.73sq m eGFR calculated using average adult body mass. Additional eGFR calculator available at: http://www.IP Ghoster/multiple_crcl_2012.htm GFR/1.73 sq M predicted among non-blacks MDRD (S/P/Bld) [Vol rate/Area]NOT REPORTEDProMedica [facility], SCGlucose [Mass/Vol]113 mg/kPYoui26 - 99 mg/dLProMedica Def[facility], SCInterpretation and review of laboratory resultsAbnormalProMedica [facility], SCPotassium [Moles/Vol]3.6 mmol/LLow3.7 - 5.3 mmol/[facility], KYProtein [Mass/Vol]9.7 g/dLHigh6.4 - 8.3 g/dLProMedica [facility], SCSodium [Moles/Vol]139 mmol/L135 - 144 mmol/[facility], KYUrea nitrogen [Mass/Vol]13 mg/dL6 - 20 mg/dLProMedica Def[facility], SCHCG Qualitative, Serumon [id number] QualNegativeNEGATIVEProMedica Defiance [facility] Hospital, SCComment on above:Specimens with hCG levels near the threshold of the test (25 mIU/mL) may give a negative or indeterminate result. In such cases, another test should be performed with a new specimen in 48-72 hours. If early is suspected clinically in this setting, correlation with quantitative serum b-hCG level is suggested. [employer] has confirmed the use of plasma for this test. This has not been cleared or approved by the U.S. Food and Drug Administration. The FDA has determined that such clearance is not necessary. Lipaseon [id number] [Catalytic activity/Vol]44 U/L13 - 60 U/LMercy Health- [place], KYMicroscopic Urinalysison 59-10-0998Tmuiefart, UANOT REPORTEDNoneMercy Health- [place], KYBacteria, UARAREAbnormalNoneMercy Health- [place], KYCasts UANOT REPORTED/LPFMercy Health- [place], KYCrystals, UANOT REPORTEDNone /HPFMercy Health- [place], KYEpithelial Cells UA2 TO 5/HPFMercy Health- [place], KYInterpretation and review of laboratory resultsAbnormalMercy Health- [place], KYMucus, UANOT REPORTEDNoneMercy [facility]- [place], KYOther Observations UANOT REPORTEDNOT REQ.[facility]- [place], KYRBC (U) [#/Vol]0 TO 2[facility]- [place], KYRenal Epithelial, UANOT REPORTED0 /HPFMercy Health- [place], KYTrichomonas, UANOT REPORTEDNoneMercy [facility]- [place], KYWBC, UA0 TO 20 /HPFMercy Health- [place], KYYeast, UANOT REPORTEDNoneMercy [facility]- [place], [place]-[facility]- [place], KYOtheron [id number] granulocytes (Bld) [#/Vol]NOT REPORTED [facility]- [place], KYUrinalysis, reflex to microscopicon [id number] UrineNegativeNEGATIVEMercy Health- [place], KYColor, UAYELLOWYELLOWMercy Health- [place], KYGlucose, UrNegativeNEGATIVEMercy Health- [place], KYInterpretation and review of laboratory resultsAbnormalMercy Health- [place], KYKetones Ql (U)NegativeNEGATIVE [facility]- [place], KYLeukocyte esterase Test strip Ql (U)NegativeNEGATIVEMercy Health- [place], KYNitrite, UrineNegativeNEGATIVEMercy Health- [place], KYpH, UA5.0[facility]- [place], KYProtein (U) [Mass/Vol]NegativeNEGATIVEProMedica [facility], DARBYSpecific [place], UA1.010[facility], KYTurbidity UACLEARCLEARProMedica [facility], DARBY Urinalysis CommentsProMedica Defiance Regional Hospital, KYUrine HgbTRACEAbnormalNEGATIVEProMedica [facility], SCUrobilinogen, UrineNormalNormalProMedica [facility], SCProgesteroneon 51-97-2544Enmlgarnffdw0.41 ng/mLProMedica Defiance [facility] Hospital, SCComment on above: FEMALE (healthy): Follicular phase 0.06-0.89 Ovulation phase 0.12-12.00 Luteal phase 1.83-23.90 Postmenopausal <0.13 US NON OB TRANSVAGINALon . No acute intrapelvic abnormality. 2. Right ovarian follicles as described. No obvious left ovarian follicles on provided images. 3. Uterine fibroid measures up to 2.0 cm.[facility], [place] EXAMINATION: PELVIC ULTRASOUND 04/18/2020 TECHNIQUE: Transvaginal pelvic ultrasound was performed. Color Doppler evaluation was performed. COMPARISON: 11/15/2018 HISTORY: ORDERING SYSTEM PROVIDED HISTORY: Infertility, female TECHNOLOGIST PROVIDED HISTORY: follicle check Please schedule on day 14 of cy naif, 04/18/2020. FINDINGS: Measurements: Uterus: 7.0 x 5.5 x 4.1 cm Endometrial stripe: 13 mm RightOvary: 4.2 x 3.9 x 3.7 cm Left Ovary: 4.2 x 2.3 x 2.9 cm Ultrasound Findings: Uterus: Uterus demonstrates normal myometrial echotexture. A left lower uterine segment/body fibroid measures 2.0 x 1.8 x1.0 cm. Endometrial stripe: Endometrial stripe is within normal limits. Right Ovary: Right ovary iswithin normal limits. Numerous follicles (over 10) are identified throughout the right ovary. The largest follicle measures 1.2 x 1.1 x 0.5 cm. Left Ovary: Left ovary is within normal limits. Power System Engineer reports follicles less than 2 cm, however, no discrete follicles are identified on provided imag ing. Free Fluid: No evidence of free fluid.[facility], Sean, Tigist Incoming Radiant Results From [employer] - 04/18/2020 8:48 PM EDT EXAMINATION: PELVIC [...] Ovary: Left ovary is within normal limits. Power System Engineer reports follicles less than 2 cm, however, no discrete follicles are identified on provided imaging. Free Fluid: No evidence of free fluid. IMPRESSION: 1. No acute intrapelvic abnormality. 2. Right ovarian follicles as described. No obvious left ovarian follicles on provided images. 3. Uterine fibroid measures up to 2.0 cm. [facility], KYTS without Reflexon [id number] Qn2.14 m[IU]/[facility], KYT3, TOTAL (TRIIODOTHYRONINE)on 89-93-6927L3, IBZHI820 ng/dLNormal 71-180The [facility] HospitalComment on above:Performed By: #### V4MIULZ #### [facility] [address] [place] [address] Tamir RaglandenAMYLASEon [id number] [Catalytic activity/Vol]45 U/LNormal 31-110The [facility] HospitalComment on above:Performed By: #### MARIZOL, LIPA, CMP #### [facility] [address] [address] Tamir KarenCBC W MANUAL DIFFon [id number] LYMPH #NormalThe [facility] HospitalComment on above:Performed By: #### SEDR #### [facility] [address] [place] [address] Tamir KarenATYPICAL LYMPH %NormalThe [facility] HospitalComment on above: Performed By: #### SEDR #### [facility] [address] [place] [address] Tamir KarenBAND #Normal0.0-0.3The [facility] HospitalComment on above:Performed By: #### SEDR #### [facility] [address] [place] [address] Tamir KarenBAND %Normal0-5The [facility] HospitalComment on above:Performed By: #### SEDR #### [facility] [address] [place] [address] Tamir KarenBASOM #0.00 103/ulNormal0.00-0.10The [facility] Memorial HospitalComment on above:Performed By: #### SEDR #### [facility] [address] [place] [address] Tamir KarenBASOM %0.0 %Critically low0.2-2.0The [facility] HospitalComment on above:Performed By: #### SEDR #### [facility] [address] [place] [address] Tamir KarenBLAST #NormalLouis Stokes Cleveland Va Medical CenterComment on above:Performed By: #### SEDR #### [facility] [address] [place] [address] Tamir KarenBLAST %NormalParkview Health Bryan Hospital HospitalComment on above:Performed By: #### SEDR #### [facility] [address] [place] [address] Tamir KarenCORRECTED WBCNormal4.0-11.0The [facility] Memorial HospitalComment on above: Performed By: #### SEDR #### [facility] [address] [place] [address] Tamir KarenEosinophils (Bld) [#/Vol]0.00 103/ulNormal0.00-0.70The [facility] HospitalComment on above:Performed By: #### SEDR #### [facility] [address] [address] Tamir KarenEosinophils/100 WBC (Bld)0.0 %Critically low0.9-7.0The [facility] Memorial HospitalComment on above:Performed By: #### SEDR #### [facility] [address] [place] [address] Tamir KarenErythrocyte distribution width (RBC) [Ratio]13.7 %Mjnpdh10.0-15.0The [facility] Memorial HospitalComment on above:Performed By: #### SEDR #### [facility] [address] [place] [address] Tamir KarenHematocrit (Bld) [Volume fraction]36.7 %Ejfjbq09.0-48.0The [facility] HospitalComment on above:Performed By: #### SEDR #### [facility] [address] [place] [address] Tamir KarenHemoglobin (Bld) [Mass/Vol]12.6 g/lhVfibmo96.0-16.0The [facility] Memorial HospitalComment on above:Performed By: #### SEDR #### [facility] [address] [place] [address] Tamir KarenLYMPHM #0.62 103/ulCritically low1.20-3.80The [facility] Comment on above:Performed By: #### SEDR #### [facility] [address] [place] [address] Tamir KarenLYMPHM%7.0 %Critically low20.5-60.0The [facility] Memorial HospitalComment on above:Performed By: #### SEDR #### [facility] [address] [place], [place] [id number] Tamir KarenMCH (RBC) [Entitic mass]28.0 rqJhhpbl52.7-34.0The [facility] Comment on above:Performed By: #### SEDR #### [facility] [address] [place] [address] Tamir KarenMCHC (RBC) [Mass/Vol]34.3 g/ywXsspwj99.9-35.2The [facility] Comment on above:Performed By: #### SEDR #### [facility] [address] [place] [address] Tamir KarenMCV (RBC) [Entitic vol]81.6 uWTgpxuk08.0-99.0The [facility] Comment on above:Performed By: #### SEDR #### [facility] [address] [place] [address] Tamir KarenMETAMYELOCYTE #NormalThe [facility] HospitalComment on above:Performed By: #### SEDR #### [facility] [address] [place] [address] Tamir KarenMETAMYELOCYTE %NormalThe [facility] HospitalComment on above:Performed By: #### SEDR #### [facility] [address] [place] [address] Tamir KarenMONOM#0.36 103/ulNormal0.30-0.80The [facility] HospitalComment on above:Performed By: #### SEDR #### [facility] [address] [place] [address] Tamir KarenMONOM%4.0 %Normal1.7-12.0The [facility] Memorial HospitalComment on above: Performed By: #### SEDR #### [facility] [address] [place] [address] Tamir KarenMYELOCYTE #NormalLouis Stokes Cleveland Va Medical CenterComment on above:Performed By: #### SEDR #### [facility] [address] [place] [address] Tamir KarenMYELOCYTE %NormalThe [facility] Memorial HospitalComment on above:Performed By: #### SEDR #### [facility] [address] [place] [address] Tamir KarenNRBCNormalThe [facility] Memorial HospitalComment on above:Performed By: #### SEDR #### [facility] [address] [place] [address] Tamir KarenPlatelet mean volume (Bld) [Entitic vol]10.5 fLNormal9.5-13.5The [facility] Memorial HospitalComment on above:Performed By: #### SEDR #### [facility] [address] [place] [address] Tamir KarenPlatelets (Bld) [#/Vol]173 103/boErwohp742-878MlkLouis Stokes Cleveland Va Medical Center Comment on above:Performed By: #### SEDR #### [facility] [address] [place] [address] Tamir KarenRBC (Bld) [#/Vol]4.50 106/ulNormal4.20-5.40[facility] Comment on above:Performed By: #### SEDR #### [facility] [address] [place] [address] Tamir KarenSEG #7.92 103/ulCritically high1.40-6.50The [facility] Memorial HospitalComment on above:Performed By: #### SEDR #### [facility] [address] [place] [address] Tamir KarenSegmented neutrophils/100 WBC (Bld)89.0 %Critically high43.0-75.0Louis [facility] Medical CenterComment on above:Performed By: #### SEDR #### [facility] [address] [place] [address] Tamir KarenWBC (Bld) [#/Vol]8.9 103/ulNormal4.0-11.0[facility] Comment on above:Performed By: #### SEDR #### [facility] [address] [place] [address] Tamir KarenCULTURE URINEon [id number] URINECulture Observations: No growthNormalThe [facility] Memorial HospitalComment on above:Performed By: #### SEDR #### [facility] [address] [place] [address] Tamir KarenLIPASEon 27-01-7726Zqnxns [Catalytic activity/Vol]143.0 U/LNormal 23.0-300.0[facility] Medical CenterComment on above:Performed By: #### MARIZOL, LIPA, CMP #### [facility] [address] [place] [address] Tamir KarenPROF 14(COMP METB)on 49-91-4214Hiedyhy [Mass/Vol]3.9 g/dLNormal 3.5-5.0The [facility] HospitalComment on above:Performed By: #### MARIZOL LIPA, CMP #### [facility] [address] [address] Tamir KarenAlbumin/Globulin [Mass ratio]0.9 {ratio}NormalLouis Stokes Cleveland Va Medical Center Comment on above:Performed By: #### MARIZOL, LIPA, CMP #### [facility] [address] [address] Tamir KarenALP [Catalytic activity/Vol]54 U/VZwlydy84-524Oge [facility] Comment on above:Performed By: #### MARIZOL LIPA, CMP #### [facility] [address] [address] Tamir KarenALT [Catalytic activity/Vol]175 U/LCritically high9-52The [facility] HospitalComment on above:Performed By: #### MARIZOL LIPA, CMP #### [facility] [address] [address] Tamir KarenAnion gap [Moles/Vol]14.2 mmol/LNormalThe [facility] Memorial HospitalComment on above:Performed By: #### MARIZOL LIPA, CMP #### [facility] [address] [address] Tamir KarenAST [Catalytic activity/Vol]91 U/LCritically vqir84-41Lcy [facility] HospitalComment on above:Performed By: #### MARIZOL, LIPA, CMP #### [facility] [address] [address] Tamir KarenBilirubin Ql (U)1.2 mg/dLNormal0.2-1.3The [facility] HospitalComment on above:Performed By: #### MARIZOL, LIPA, CMP #### [facility] [address] [address] Tamir KarenCalcium [Mass/Vol]9.2 mg/dLNormal8.4-10.2The [facility] Comment on above:Performed By: #### MARIZOL, LIPA, CMP #### [facility] [address] [place] [address] Tamir KarenChloride [Moles/Vol]103 mmol/RItnhye71-661Hgx [facility] Comment on above:Performed By: #### MARIZOL, LIPA, CMP #### [facility] [address] [place] [address] Tamir KarenCO2 [Moles/Vol]26.3 mmol/AIytdpv41.0-30.0The [facility] Comment on above:Performed By: #### MARIZOL, LIPA, CMP #### [facility] [address] [place] [address] Tamir KarenCreatinine [Mass/Vol]0.99 mg/dLNormal0.52-1.04[facility] Comment on above:Performed By: #### MARIZOL, LIPA, CMP #### [facility] [address] [place] [address] Tamir KarenEGFR-AF GABONESE>60Normal>=60The [facility] HospitalComment on above: Performed By: #### MARIZOL, LIPA, CMP #### [facility] [address] [place] [address] Tamir KarenEGFR-NON AF GABONESE>60Normal>=60The [facility] HospitalComment on above:Performed By: #### MARIZOL, LIPA, CMP #### [facility] [address] [place] [address] Tamir KarenGlobulin (S) [Mass/Vol]4.4 g/dLNormalThe [facility] HospitalComment on above:Performed By: #### MARIZOL, LIPA, CMP #### [facility] [address] [place] [address] Tamir KarenGlucose [Mass/Vol]173 mg/dLCritically ntgy26-656Kro [facility] HospitalComment on above:Performed By: #### MARIZOL, LIPA, CMP #### [facility] [address] [place] [address] Tamir KarenPotassium [Moles/Vol]3.5 mmol/LNormal3.4-5.0The [facility] Comment on above:Performed By: #### SHAI FONTANA, CMP #### [facility] [address] [place] [address] Tamir KarenProtein [Mass/Vol]8.3 g/dLCritically high6.1-8.2The [facility] HospitalComment on above:Performed By: #### SHAI FONTANA, CMP #### [facility] [address] [place] [address] Tamir KarenSodium [Moles/Vol]140 mmol/SEvhrey251-783Dlz [facility] Comment on above:Performed By: #### SHAI FONTANA, CMP #### [facility] [address] [place] [address] Tamir KarenUrea nitrogen [Mass/Vol]15.0 mg/dLNormal7.0-17.0The [facility] HospitalComment on above:Performed By: #### SHAI FONTANA, CMP #### [facility] [address] [place] [address] Tamir KarenUrea nitrogen/Creatinine [Mass ratio]15.2 mg/mgNormalThe [facility] HospitalComment on above:Performed By: #### SHAI FONTANA, CMP #### [facility] [address] [place] [address] Tamir KarenUA RANDOM W/MICROSCOPICon [id number] CRYSTALSMANYNormalThe [facility] HospitalComment on above:Performed By: #### UAMIC #### [facility] [address] [place] [address] Tamir KarenBacteria LM.HPF (Urine sed) [#/Area]TRACENormalNONE SEENThe [facility] HospitalComment on above:Performed By: #### UAMIC #### [facility] [address] [place] [address] Tamir KarenBilirubin [Mass/Vol]SMALLNormalNEGATIVEThe [facility] HospitalComment on above:Performed By: #### UAMIC #### [facility] [address] [place] [address] Tamir KarenBLOODLARGENormalNEGATIVELouis Stokes [place] Va Medical CenterComment on above: Performed By: #### UAMIC #### [facility] [address] [address] Tamir KarenCASTNONE SEENNormalNONE SEENLouis Stokes [place] Va Medical CenterComment on above: Performed By: #### UAMIC #### [facility] [address] [place] [address] Tamir KarenClarity (U)CLOUDYNormalLouis Stokes [place] Va Medical CenterComment on above: Performed By: #### UAMIC #### [facility] [address] [address] Tamir KarenColor (U)BROWNNormalYELLOWLouis Stokes [place] Va Medical CenterComment on above: Performed By: #### UAMIC #### [facility] [address] [place] [address] Tamir KarenCrystals LM Nom (Urine sed)SEENHarry S. Truman Memorial Veterans' HospitalE [facility] on above:Performed By: #### UAMIC #### [facility] [address] [place] [address] Tamir KarenEpithelial cells LM.HPF (Urine sed) [#/Area]MODERATENormalThUK HealthcareComment on above:Performed By: #### UAMIC #### [facility] [address] [place] [address] Tamir KarenGlucose [Mass/Vol]NegativeNormalNEGATIVELouis Stokes [place] Va Medical CenterComment on above:Performed By: #### UAMIC #### [facility] [address] [place] [address] Tamir KarenKetones Ql (U)NegativeNormalNEGATIVELouis Stokes [place] Va Medical CenterComment on above:Performed By: #### UAMIC #### [facility] [address] [place] [address] Tamir KarenMUCOUSTRACENormalNONE [facility] CenterComment on above: Performed By: #### UAMIC #### [facility] [address] [place] [address] Tamir KarenNitrite Ql (U)NegativeNormalNEGATIVELouis Stokes [place] Va Medical CenterComment on above:Performed By: #### UAMIC #### [facility] [address] [place] [address] Tamir KarenpH (Bld)5.4Prouqk7-5Lml [facility] HospitalComment on above:Performed By: #### UAMIC #### [facility] [address] [place] [address] Tamir KarenProtein [Mass/Vol]30 mg/dlNormNorwalk Memorial HospitalComment on above:Performed By: #### UAMIC #### [facility] [address] [place] [address] Tamir KarenRBC (Bld) [#/Vol]>846Oovzic4-7Nlu [facility] HospitalComment on above: Performed By: #### UAMIC #### [facility] [address] [place] [address] Tamir KarenSPEC GRAVITY>=1.775Pnpgez7.005-<=1.025The [facility] HospitalComment on above:Performed By: #### UAMIC #### [facility] [address] [place] [address] Tamir KarenUrobilinogen Qn (U)0.2 EU/dlNoLutheran HospitalComment on above:Performed By: #### UAMIC #### [facility] [address] [place] [address] Tamir KarenWBC (Bld) [#/Vol]NegativeNormalNEGATIVELouis Stokes [place] Va Medical CenterComment on above:Performed By: #### UAMIC #### [facility] [address] [place] [address] Tamir KarenWBC (Bld) [#/Vol]NONE SEENNormalNONE SEENLouis Stokes [place] [facility] Comment on above:Performed By: #### UAMIC #### [facility] [address] [place] [address] Tamir KarenAMYLASEon 82-62-5611Fypyffx [Catalytic activity/Vol]51 U/LNormal 31-110The [facility] HospitalComment on above:Performed By: #### SEDR #### [facility] [address] [place] [address] Tamir KarenCARDIAC HONORIO ADMITon [id number] [Catalytic activity/Vol]74 U/L Helorb47-721Ewk [facility] HospitalComment on above:Performed By: #### SEDR #### [facility] [address] [place] [address] Tamir KarenCK.MB [Mass/Vol]0.15 ng/mLNormal<=2.37The [facility] HospitalComment on above:Performed By: #### SEDR #### [facility] [address] [place] [address] Tamir KarenINR Coag (Bld) [Relative time]SEE BELOWNormalThe [facility] Comment on above:Result Comment: <0.034 ng/ml NEGATIVE 0.034-0.119 INDETERMINATE 0.120 AMI CUT OFFPerformed By: #### SEDR #### [facility] [address] [place] [address] Tamir HpqvgOVO87.0 ng/mLCritically high<=61.5The [facility] HospitalComment on above:Performed By: #### SEDR #### [facility] [address] [place] [address] Tamir KarenTROP<0.017Normal<=0.034The [facility] HospitalComun[facility] on above: Performed By: #### SEDR #### [facility] [address] [place] [address] Tamir KarenCBC AUTO DIFFon [id number] (Bld) [#/Vol]0.0 103/ulNormal 0.0-0.1The [facility] HospitalComment on above:Performed By: #### CBC #### [facility] [address] [place] [address] Tamir KarenBasophils/100 WBC (Bld)0.2 %Normal0.2-2.0[facility] [place] [facility] Comment on above:Performed By: #### CBC #### [facility] [address] [place] [address] Tamir KarenEosinophils (Bld) [#/Vol]0.0 103/ulNormal0.0-0.7The [facility] HospitalComment on above:Performed By: #### CBC #### [facility] [address] [place] [address] Tamir KarenEosinophils/100 WBC (Bld)0.3 %Critically low0.9-7.0The [facility] HospitalComment on above:Performed By: #### CBC #### [facility] [address] [place] [address] Tamir KarenErythrocyte distribution width (RBC) [Ratio]13.6 %Qolocq75.0-15.0The [facility] HospitalComuniversity of [facility] on above:Performed By: #### CBC #### [facility] [address] [place] [address] Tamir KarenHematocrit (Bld) [Volume fraction]37.3 %Kdxvbb17.0-48.0The [facility] HospitalComun[facility] on above:Performed By: #### CBC #### [facility] [address] [place] [address] Tamir KarenHemoglobin (Bld) [Mass/Vol]13.0 g/hHHywezy00.0-16.0The [facility] on above:Performed By: #### CBC #### [facility] [address] [place] [address] Tamir KarenIG #0.03 10e3/ulNormal0.00-0.03The [facility] HospitalComun[facility] on above:Performed By: #### CBC #### [facility] [address] [place] [address] Tamir KarenIG %0.3 %Normal0.0-0.5The [facility] HospitalComun[facility] on above: Performed By: #### CBC #### [facility] [address] [place] [address] Tamir KarenLymphocytes (Bld) [#/Vol]0.9 103/ulCritically low1.2-3.8The [facility] HospitalComun[facility] on above:Performed By: #### CBC #### [facility] [address] [id number] Tamir KarenLymphocytes/100 WBC (Bld)9.3 %Critically low20.5-60.0[facility] [place] [facility] CenterComment on above:Performed By: #### CBC #### [facility] [address] [place] [address] Tamir KarenMANUAL DIFF REQNONormalThe [facility] HospitalComment on above: Performed By: #### CBC #### [facility] [address] [place] [address] Tamir KarenMCH (RBC) [Entitic mass]28.1 rkMfuwup29.7-34.0[facility] [place] [facility] Comment on above:Performed By: #### CBC #### [facility] [address] [place] [address] Tamir KarenMCHC (RBC) [Mass/Vol]34.9 g/uXLmhtnx55.9-35.2The [facility] Comment on above:Performed By: #### CBC #### [facility] [address] [place] [address] Tamir KarenMCV (RBC) [Entitic vol]80.6 fLCritically low81.0-99.0The [facility] HospitalComment on above:Performed By: #### CBC #### [facility] [address] [place] [address] Tamir KarenMonocytes (Bld) [#/Vol]0.5 103/ulNormal0.3-0.8The [facility] Comment on above:Performed By: #### CBC #### [facility] [address] [place] [address] Tamir KarenMonocytes/100 WBC (Bld)5.4 %Normal1.7-12.0[facility] [place] [facility] Comment on above:Performed By: #### CBC #### [facility] [address] [place] [address] Tamir KarenNeutrophils (Bld) [#/Vol]8.2 103/ulCritically high1.4-6.5The [facility] HospitalComment on above:Performed By: #### CBC #### [facility] [address] [place] [address] Tamir KarenNeutrophils/100 WBC (Bld)84.5 %Critically high43.0-75.0The [facility] HospitalComment on above:Performed By: #### CBC #### [facility] [address] [place] [address] Tamir KarenPlatelet mean volume (Bld) [Entitic vol]11.0 fLNormal9.5-13.5The [facility] HospitalComment on above:Performed By: #### CBC #### [facility] [address] [place] [address] Tamir KarenPlatelets (Bld) [#/Vol]188 103/vkSfcgzc320-862Kqy [facility] Comment on above:Performed By: #### CBC #### [facility] [address] [place] [address] Tamir KarenRBC (Bld) [#/Vol]4.63 106/ulNormal4.20-5.40[facility] [place] [facility] Comment on above:Performed By: #### CBC #### [facility] [address] [place] [address] Tamir KarenWBC (Bld) [#/Vol]9.7 103/ulNormal4.0-11.0[facility] [place] [facility] Comment on above:Performed By: #### CBC #### [facility] [address] [place] [address] Tamir KarenINFLUENZA A AND B AGon 62-11-7556FPXIJCRJSBNMKKettering Health Greene MemorialComment on above:Result Comment: Negative for Flu A protein angiten. Infection due to Flu A cannot be ruled out. FluA angiten in the sample may be below the detection limit of the test.Performed By: #### INFLUAB #### [facility] [address] [place] [address] Tamir KarenINFLUBNEGKettering Health Greene MemorialComment on above: Result Comment: Negative for Flu B protein antigen. Infection due to Flu B cannot be ruled out. FluB antigen in the sample may be below the detection limit of the test.Performed By: #### INFLUAB #### [facility] [address] [place] [address] Tamir KarenINFLUENZA A AGNegativeNormalNEGATIVE SEE COMMENTThe [facility] HospitalComuniversity of [facility] on above:Performed By: #### INFLUAB #### [facility] [address] [place] [address] Tamir KarenINFLUENZA B AGNegativeNormalNEGATIVE SEE COMMENTThe [facility] HospitalComun[facility] on above:Performed By: #### INFLUAB #### [facility] [address] [place] [address] Tamir KarenINTERNAL CONTROLSWithin Normal LimitsNormalWithin Normal LimitsThe [facility] on above:Performed By: #### INFLUAB #### [facility] [address] [place] [address] Tamir KarenLACTATE/LACTIC ACIDon 70-71-7396Rhjrxfy [Moles/Vol]2.1 mmol/LNormal 0.7-2.1The [facility] on above:Performed By: #### LACT #### [facility] [address] [place] [address] Tamir KarenLIPASEon 26-00-2359Laarya [Catalytic activity/Vol]155.0 U/LNormal 23.0-300.0The [facility] HospitalComun[facility] on above:Performed By: #### SEDR #### [facility] [address] [place] [address] Tamir KarenPROCALCITONINon [id number] header 1SEE [facility] HospitalCom[facility] on above:Result Comment: PCT <0.5ng/mL: Systemic infection (sepsis) is not likely, local bacterial infection possible, low risk for progression to severe systemic infection (severe sepsis)Performed By: #### SEDR #### [facility] [address] [place] [address] Tamir KarenPCT header 2SEE BELOWNormalThe [facility] HospitalComment on above: Result Comment: PCT >/=0.5 and <2 ng/mL: Systemic infection (sepsis) is possible, moderate risk for progression to severe systemic infection (severe sepsis)Performed By: #### SEDR #### [facility] [address] [place] [address] Tamir KarenPCT header 3SEE [facility] HospitalComment on above: Result Comment: PCT >/=2.0 and <10 ng/mL: Systemic infection (sepsis) is likely, unless othercauses are known, high risk for progession to severe systemic infection(severe sepsis)Performed By: #### SEDR #### [facility] [address] [place] [address] Tamir KarenPCT header 4SEE [facility] HospitalComment on above: Result Comment: PCT >/= 10 ng/mL: Important systemic inflammatory response almost exclusively due to severe bacterial sepsis or septic shock, high likelihood of severe sepsis or septic shockPerformed By: #### SEDR #### [facility] [address] [place] [address] Tamir KarenPROCALCITONIN0.07 ng/mLNormal0.00-0.50The [facility] HospitalComment on above:Performed By: #### SEDR #### [facility] [address] [place] [address] Tamir KarenPROF 14(COMP METB)on 77-55-0176Obpuhgo [Mass/Vol]4.4 g/dLNormal 3.5-5.0The [facility] HospitalComment on above:Performed By: #### SEDR #### [facility] [address] [place] [address] Tamir KarenAlbumin/Globulin [Mass ratio]1.0 {ratio}NormalLouis Stokes [place] [facility] Comment on above:Performed By: #### SEDR #### [facility] [address] [place] [address] Tamir KarenALP [Catalytic activity/Vol]57 U/UApxwyg45-358TxbLouis Stokes [place] [facility] Comment on above:Performed By: #### SEDR #### [facility] [address] [address] Tamir KarenALT [Catalytic activity/Vol]205 U/LCritically high9-52The [facility] HospitalComment on above:Performed By: #### SEDR #### [facility] [address] [address] Tamir KarenAnion gap [Moles/Vol]13.5 mmol/LNormalThe [facility] HospitalComment on above:Performed By: #### SEDR #### [facility] [address] [address] Tamir KarenAST [Catalytic activity/Vol]129 U/LCritically mvox31-89Sxf [facility] HospitalComment on above:Performed By: #### SEDR #### [facility] [address] [place] [address] Tamir KarenBilirubin Ql (U)1.4 mg/dLCritically high0.2-1.3TSelect Medical [place] [facility] Comment on above:Performed By: #### SEDR #### [facility] [address] [place] [address] Tamir KarenCalcium [Mass/Vol]9.7 mg/dLNormal8.4-10.2The [facility] Comment on above:Performed By: #### SEDR #### [facility] [address] [place] [address] Tamir KarenChloride [Moles/Vol]102 mmol/TZjvgwf91-457Jse [facility] Comment on above:Performed By: #### SEDR #### [facility] [address] [place] [address] Tamir KarenCO2 [Moles/Vol]28.8 mmol/BHlvzpa71.0-30.0The [facility] Comment on above:Performed By: #### SEDR #### [facility] [address] [place], [place] [id number] Tamir KarenCreatinine [Mass/Vol]0.88 mg/dLNormal0.52-1.04The [facility] Comment on above:Performed By: #### SEDR #### [facility] [address] [place] [address] Tamir KarenEGFR-AF GABONESE>60Normal>=60The [facility] HospitalComment on above: Performed By: #### SEDR #### [facility] [address] [place] [address] Tamir KarenEGFR-NON AF GABONESE>60Normal>=60The [facility] HospitalComment on above:Performed By: #### SEDR #### [facility] [address] [place] [address] Tamir KarenGlobulin (S) [Mass/Vol]4.2 g/dLNormalThe [facility] HospitalComment on above:Performed By: #### SEDR #### [facility] [address] [place] [address] Tamir KarenGlucose [Mass/Vol]99 mg/uOKmgqou33-586Rvh [facility] HospitalComment on above:Performed By: #### SEDR #### [facility] [address] [place] [address] Tamir KarenPotassium [Moles/Vol]3.3 mmol/LCritically low3.4-5.0The [facility] HospitalComment on above:Performed By: #### SEDR #### [facility] [address] [place] [address] Tamir KarenProtein [Mass/Vol]8.6 g/dLCritically high6.1-8.2The [facility] HospitalComment on above:Performed By: #### SEDR #### [facility] [address] [place] [address] Tamir KarenSodium [Moles/Vol]141 mmol/EIfsjcs539-050Ghp [facility] Comment on above:Performed By: #### SEDR #### [facility] [address] [place] [address] Tamir KarenUrea nitrogen [Mass/Vol]11.0 mg/dLNormal7.0-17.0The [facility] HospitalComment on above:Performed By: #### SEDR #### [facility] [address] [place] [address] Tamir KarenUrea nitrogen/Creatinine [Mass ratio]12.5 mg/mgNoLutheran HospitalComment on above:Performed By: #### SEDR #### [facility] [address] [place] [address] Tamir RaglandenSED RATE WESTERGRENon 41-60-6484YOS RATE30 mm/hrCritically high<=20 The [facility] HospitalComment on above:Performed By: #### SEDR #### [facility] [address] [place] [address] Tamir KarenSEDRHMETHOD AND NORMAL CHANGE 11/18/15. RESULTS ARE NOT AFFECTED BY HEMATOCRIT.NormalThe [facility] HospitalComment on above:Performed By: #### SEDR #### [facility] [address] [place] [address] Taimr KarenSTREPT SCREENon 16-12-4980KINJZ SCREEN APositiveNormalNEGATIVEThe [facility] HospitalComment on above:Performed By: #### SHAI FONTANA, CMP #### [facility] [address] [place], [place] [address]henry RaglandPsetxN0sb 28-06-5419Z4 [Mass/Vol]14.10 ug/dLCritically high5.53-11.00The [facility] HospitalComun[facility] on above:Performed By: #### SEDR #### [facility] [address] [place] [address] Tamir RaglandenTSHon 23-59-2941TKL Qn0.669 uIU/mLNormal0.470-4.680The [facility] HospitalComment on above:Performed By: #### SEDR #### [facility] [address] [place] [address] [facility]ieM[facility] QnSEE BELOWNoLutheran HospitalComment on above:Result Comment: <0.34 UIU/ml HYPERTHYROID 0.34-5.60 UIU/ml EUTHYROID >5.60 UIU/ml HYPOTHYROIDPerformed By: #### SEDR #### [facility] [address] [place] [address] Tamir KarenHematologyon 63-82-9477Kjwinctvn/100 WBC (Bld)0.60 %Invalid Interpretation Code42 Eosinophils/100 WBC (Bld)1.50 %Invalid Interpretation Code42 Hematocrit (Bld) [Volume fraction]36.0 %Invalid Interpretation Code42 Hemoglobin (Bld) [Mass/Vol]12.10 g/dLInvalid Interpretation Code42 Lymphocytes/100 WBC (Bld)26.80 %Invalid Interpretation Code42 MCH (RBC) [Entitic mass]26.40 pgInvalid Interpretation Code42 MCV (RBC) [Entitic vol]78.40 fLInvalid Interpretation Code42 Monocytes/100 WBC (Bld)7.30 %Invalid Interpretation Code42 Neutrophils/100 WBC (Bld)63.20 %Invalid Interpretation Code42 Platelets (Bld) [#/Vol]220.0 10*3/uLInvalid Interpretation Code42 RBC (Bld) [#/Vol]4.590 10*6/uLInvalid Interpretation Code42 WBC (Bld) [#/Vol]5.20 10*3/uLInvalid Interpretation Code42 Otheron 79-13-6533Lnylnmpizwk distribution width (RBC) [Ratio]14.80 %Invalid Interpretation Code42 MCHC (RBC) [Mass/Vol]33.60 g/dLInvalid Interpretation Code42 lsInvalid Interpretation CodeLouis Stokes [place] [facility] wripl [facility] Thyroidon 46-29-5439U4 [Mass/Vol]12.9 HInvalid Interpretation CodeHolzer Medical Center – [facility] TSH Qn1.431 m[IU]/LInvalid Interpretation [facility] Coding Summary.on [id number] Summary.CODING DATE: 03/04/2019 FINAL [facility] STATUS: Home (Routine DC) PAYOR: Medicaid [...] Stephanie Chamberlain CphT Date Saved: 03/04/2019 03:08 pmNRegency Hospital [place] WestImm/Pathon 98-11-0145Iuazavhqxjdaz Ab Qn[IU]/mLHolzer Medical Center – [facility] Thyroperoxidase Ab Qn815.0 HInvalid Interpretation Code [facility] wripl [facility] Laboratory - Serology - non-microon 01-24-2019 Thyroglobulin Ab Qn[IU]/mLInvalid Interpretation [facility] CenterAg[facility] w[facility]pl [facility] Otheron 84-12-2750faVzctbav Interpretation Code [facility] wripl [facility] Thyroidon [id number] mass conc10.8 ug/dLInvalid Interpretation [facility] CenterAgolo [place] [facility] Thyrotropin Qn1.15 m[IU]/LInvalid Interpretation Code [facility] Vital Signs Date TimeVital SignValuePerforming WsztjvbgdHkutkjvk99-59-3823 13:42-0400Body yhwdli764.1 cmBenjamin Murcek DO Work Phone: [phone]-[facility] ServicesPxmncefkmn90-23-4876 13:42-0400Body mass index (BMI) [Ratio]35.78 kg/s3Oszmjsxe Murcek DO Work Phone: [phone]-[facility] Health ServicesFdnscijbhm57-32-6733 13:42-0400Body vzxikn46.52 kgBenjamin Murcek DO Work Phone: [phone] [place], [place] [address]Exkmaqicum85-51-2861 09:02-0400Body smxfza345.1 cmBenjamin Murcek DO Work Phone: [phone] [place], [place] 16[address]008-26-2025 09:02-0400Body mass index (BMI) [Ratio]35.78 kg/d8Dpkagobc Murcek DO Work Phone: [phone] [place], [place] [address]Kltmkbjqvb42-57-0138 09:02-0400Body xtaeow39.52 kgBenjamin Murcek DO Work Phone: [phone] [place], [place] [address]Wqruagabdi95-18-6388 13:58-0400Body jtzeuf463.1 cmBenjamin Murcek DO Work Phone: [phone] [place], [place] [address]Xseheqjtug94-16-0546 13:58-0400Body mass index (BMI) [Ratio]35.78 kg/g3Hgewurqf Murcek DO Work Phone: [phone] [place], [place] 16[address]008-11-2025 13:58-0400Body dxioek03.52 kgBenjamin Murcek DO Work Phone: [phone] [place], [place] [address]Jjylukoagv65-82-4350 07:44-0400Respiratory rate14 /minChbinta Koroma MD Work Phone: bon [facility] HospitalEdnhtb12-81-4286 07:00-0400Body faqqojaquwq15.39 [degF]Harpreet Koroma MD Work Phone: bon [facility] HospitalQMed[facility] Gywfth90-42-0220 07:00-0400Diastolic blood lwljwcxu94 mm[Hg]Harpreet Koroma MD Work Phone: [phone])208-Eliana [facility] Aeovhb34-58-8169 07:00-0400Heart rate79 /minHarpreet Koroma MD Work Phone: [phone]-Eliana [facility]05-04-2025 07:00-4836EbK6% (BldA) [Mass fraction]96 %Harpreet Koroma MD Work Phone: [phone])387-Eliana [facility]05-04-2025 07:00-0400Systolic blood hikkpolc774 mm[Hg]Harpreet Koroma MD Work Phone: 1(419)TatyanaEliana [facility]05-04-2025 01:55-0400Body iocwhs744.1 cmChrraphael Koroma MD Work Phone: [phone])130-Eliana [facility]05-04-2025 01:55-0400Body mass index (BMI) [Ratio]34.55 kg/r8PpeessrnbHarpreet Koroma MD Work Phone: [phone])877-Eliana [facility]05-04-2025 01:55-0400Body ltmiva12.17 kgHarpreet Koroma MD Work Phone: [phone])203-Eliana [facility]02-11-2025 11:02-0500Body .1 cmBenbrandomin Murcek DO Work Phone: [phone]-[facility] ServicesYwimjwhyvb91-03-7811 11:02-0500Body mass index (BMI) [Ratio]35.45 kg/n8Plqdqtiy Murcek DO Work Phone: [facility] ServicesQsbrxxasfj93-33-4395 11:02-0500Body gcrvfy89.62 kgBenjamin Murcek DO Work Phone: [facility] ServicesCewrrmrecg48-95-9332 08:05-0500Body sirjyg244.1 cmBenjamin Murcek DO Work Phone: [phone] [place], [place] [address]Imievxgfgv87-64-6902 08:05-0500Body mass index (BMI) [Ratio]35.45 kg/g7Jfumvfmwkaryn Peterson DO Work Phone: [facility] ServicesZmixqwoqls70-29-3022 08:05-0500Body rtjopq95.62 kgBenanthony Stewartceherbie DO Work Phone: [facility] ServicesSozgrvjomr69-98-4893 10:14-0500Body ttjldi776.1 cmSherita Jurado DO Work Phone: [phone] [place], [place] 6602701-14-2025 10:140500Body mass index (BMI) [Ratio]35.58 kg/m2Sherita Jurado DO Work Phone: [phone] [place], [place] 6602701-14-2025 10:14050Body yhrlll49.98 kgSherita Jurado DO Work Phone: [phone] [place], [place] 6602701-14-2025 10:0500Diastolic blood dsaqxknb20 mm[Hg]Sherita Jurado DO Work Phone: [phone])[address] [place], [place] 6602701-14-2025 10:0500Heart rate89 /min Sherita Jurado DO Work Phone: [phone] [place], [place] 6602701-14-2025 10:5352XgJ7% (BldA) [Mass fraction]99 %Sherita Jurado DO Work Phone: [phone] [place], [place] 6602701-14-2025 10:0500Systolic blood lfdavxfs434 mm[Hg]Sherita Jurado DO Work Phone: [phone])[address] [place], [place] 6602701-14-2025 09:22-0500Body geangu853.1 cmBekaryn Peterson DO Work Phone: [facility] ServicesXjjaekfjsv67-10-3337 09:22-0500Body mass index (BMI) [Ratio]35.61 kg/u3Mfukcgaq Murcek DO Work Phone: [facility] ServicesSlupsvahmk00-34-0651 09:22-0500Body acundv43.07 kgBenanthony Carlink DO Work Phone: [facility] ServicesUmhlzilqfs93-88-5833 10:05-0400Body molvil712.91 Sofie Biosciencesmaria t [employer] Work Phone: [phone] 10:05-0400Body mass index (BMI) [Ratio]34.18 kg/h4Oznwj [employer] Work Phone: [phone] 10:05-0400Body surface area Derived from formula2.14 j8Avzua [employer] Work Phone: [phone] 10:05-040Body sfsomr78.52 kgDiogenes [employer] Work Phone: [phone] 10:05-0400Diastolic blood ldmwfptu44 mm[Hg] Diogenes [employer] 29-559323-29071687-86-4815 10:05-0400Heart rate72 /minDiogenes [employer] Work Phone: [phone] 10:05-0400Systolic blood allwpomq784 mm[Hg] Diogenes [employer] 10-112917-08038370-22-6541 12:19-0400Body ezpqye612.55 [employer] 90-625063-35690630-91-1639 12:19-0400Body mass index (BMI) [Ratio]33.77 kg/h7Ogpkk [employer] 26-294454-95406748-62-0384 12:19-0400Body surface area Derived from formula2.14 j0Rfurp [employer] 43-757973-08386585-67-4708 12:19-0400Body jtlyvb75.07 Benita [employer] 04-28-2023 12:19-0400Diastolic blood mm[Hg] Diogenes [employer] 04-28-2023 12:19-0400Heart rate80 /minDiogenes Garcia [place] [employer] 04-28-2023 12:19-0400Systolic blood vgyalopp020 mm[Hg] [facility]ogenes [facility] [employer] 06-09-2022 19:59-0400Body mass index (BMI) [Ratio]34.11 kg/m2Honorio Shelby MD Work Phone: [employer]06-09-2022 19:59-0400Body upyifbzapvl84.4 [degF]Honorio Shelby MD Work Phone: [employer]06-09-2022 19:59-0400Body bnivcq18.99 kgHonorio Shelby MD Work Phone: [employer]06-09-2022 19:59-0400Diastolic blood mm[Hg]Honorio Shelby MD Work Phone: [employer]06-09-2022 19:59-0400Heart rate97 /minHonorio Shelby MD Work Phone: [employer]06-09-2022 19:59-0400 Respiratory rate16 /minHonorio Shelby MD Work Phone: [employer]06-09-2022 19:59-3770AdM4% (BldA) [Mass fraction]100 %Honorio Shelby MD Work Phone: [employer]06-09-2022 19:59-0400Systolic blood iowtuowk801 mm[Hg]Honorio Shelby MD Work Phone: [employer]04-12-2022 16:42-0400Body sxuyfy987.55 Fernando [employer] MallLincolnImmune [employer] 04-12-2022 16:42-0400Body mass index (BMI) [Ratio]32.82 kg/d5TxaclDiogenes BlackmartaBlerie county medical centerImmune System Therapeutics 04-12-2022 16:42-0400Body surface area Derived from formula2.11 b5Tmdaf Oriel [facility] centerImmun[facility] 04-12-2022 16:42-0400Body zopogb69.35 kgDiogenes OpVistancGreen [employer] 04-12-2022 16:42-0400Diastolic blood fguyauei14 mm[Hg] Diogenes Oriel [facility] centerImmun[facility] 04-12-2022 16:42-0400Heart rate76 /minHonorhealth Scott[facility] Centerbruno Garcia MonetGreen [employer] 04-12-2022 16:42-0400Systolic blood kdhuvnti340 mm[Hg] Diogenes Oriel [facility] centerImmun[facility] 05-29-2021 10:44-0400Body kousrnvhrlf02.2 [degF]Cassidy Alvarez MD Work Phone: [employer] Work Phone: [phone] 221-361005-29-2021 10:38-0400Body yljuvi583.6 cmCassidy Alvarez MD Work Phone: [employer] Work Phone: [phone] 10:38-0400Body mass index (BMI) [Ratio] 32.38 kg/h9ZrzolCassidy Alvarez MD Work Phone: [facility] [employer] Work Phone: [phone] 147-397905-29-2021 10:38-0400Body hlheoe43.99 kgCassidy Alvarez MD Work Phone: [employer] Work Phone: [phone] 144-979605-29-2021 10:38-0400Diastolic blood uexffmdk79 mm[Hg] Cassidy Alvarez MD Work Phone: [employer] Work Phone: [phone]) [phone] 10:38-0400Heart rate98 /Melanie Alvarez MD Work Phone: [employer] Work Phone: 1(312) 110-305305-29-2021 10:38-0400Respiratory rate20 /Melanie Alvarez MD Work Phone: [employer] Work Phone: 1(635) 412-619305-29-2021 10:38-1101XuS1% (BldA) [Mass fraction]99 % Cassidy Alvarez MD Work Phone: [employer] Work Phone: [phone] 10:38-0400Systolic blood enjnkfzu341 mm[Hg] Cassidy Alvarez MD Work Phone: [employer] Work Phone: [phone] 538-180304-15-2021 16:40-0400BMI (Body Mass Index)32.03 kg/m2 [employer] 04-15-2021 16:40-0400Body .76 kgMahopac virtual [employer]td 04-15-2021 16:40-0400BP Eakydmbfm41 mm[Hg][employer] 04-15-2021 16:40-0400BP Mhngdpao030 mm[Hg][employer] 04-15-2021 16:40-0400BSA (Body Surface Area)2.09 m2 [employer] 04-15-2021 16:40-0446Ssvsnf171.18 cmLeroeb [employer] 04-15-2021 16:40-0400Pulse (Heart Rate)76 /minTopple Track 11-20-2020 09:45-0500BP Cbtsbzdru19 mm[Hg]Lizbet AlexandroSelect Medical Specialty [facility], Inc, LC34-20-1496 09:45-0500BP Djsgqpor217 mm[Hg]Lizbet ForemanCherrington Hospital, XQ84-31-4336 09:45-0500Pulse (Heart Rate)81 /min Lizbet LemaOhio[facility], CM45-21-7047 09:45-0500Pulse Lzfijfpo76 % Lizbet LemaOhioHealth [facility], LT50-01-0305 09:45-0500Respiratory Rate14 /minLizbet ForemanCherrington Hospital, XS00-06-4434 09:16-0500Body Idkwxwqpflp41.39 [degF]Lizbet ForemanCherrington Hospital, QD67-52-4461 07:43-0500BMI (Body Mass Index)33.28 kg/q1ObhtmnLizbet Arizmendi [facility], AR44-78-1035 07:43-0500Body zgwicz16.72 kgUmatilla Alexandro [facility] CentersydniOhioHealth Riverside [facility], IY68-56-1166 07:43-1384Tqnkok599.1 [facility] Tulsananda Arizmendi [facility], NK86-09-8391 15:25-0400BP Dbonoycmt09 mm[Hg][facility], OO33-06-3775 15:25-0400BP Ggnhncbs409 mm[Hg][facility], AK23-58-0499 15:25-0400Pulse Isqcoxqa102 %[facility], 06-17-2020 15:21-0400BMI (Body Mass Index)34.61 kg/h1DykxpkydiqjNorthern Light [facility], WJ44-32-9434 15:21-0400Body Jdtasitgmlb88.49 [degF][facility], ND34-40-7068 15:21-0400Body igaxkk78.35 kgRedington-[facility], SY82-82-5394 15:21-2483Rbcqhi515.1 [facility], XV57-42-9109 15:21-0400Pulse (Heart Rate)72 /minCass Medical [facility] [place], KH95-40-8288 15:21-0400Respiratory Rate18 /[facility], KQ10-53-3556 12:08-0400BMI (Body Mass Index)35.08 kg/m2 Diogenes [employer] Work Phone: [phone] 12:08-0400Body xmdeba260.61 Benita [employer] Work Phone: [phone] 12:08-0400BP Otadchvmk01 mm[Hg][employer] Work Phone: [phone] 12:08-0400BP Xotqvkzj996 mm[Hg][employer] Work Phone: [phone] 12:08-0400BSA (Body Surface Area)2.19 m2 DiogenesP[employer] Work Phone: [phone] 12:08-2746Yqzfbq844.18 cmLeroy [employer] Work Phone: [phone] 12:08-0400Pulse (Heart Rate)76 /Ariana [employer] Work Phone: [phone] 12:08-1522Lbosrx474.61 Benita [employer] Work Phone: [phone] 11:10-0400BMI (Body Mass Index)34.93 kg/m2 DiogenesPace4Life Work Phone: [phone] 11:10-0400Body .15 TerrencePace4Life 45-562635-68852502-99-0230 11:10-0400BP Eecwdyuxb46 mm[Hg][employer] 93-327403-93738632-56-5295 11:10-0400BP Vufbonxv146 mm[Hg][employer] [facility] 10-16-2018 11:BSA (Body Surface Area)2.19 m2 Diogenes [employer] 10-16-2018 11:4391Tgxcxl991.18 cmLmaria t [employer] 10-16-2018 11:Pulse (Heart Rate)68 /minDiogenes [employer] 10-16-2018 11:2310Gbdjmv677.15 kgDiogenes virtual [employer] ltd Encounters Encounter DateEncounter [facility]Care ProviderFacilityStart: 08-17-2025 End: 82-76-0613bhxsdslrsiPNDWAUTDJO E [facility] 08-17[facility]2025 End: 06-56-6315cxfxzavtihAEZKMTYMEC E [facility]: 07-20-2025 End: 66-21-1962tggjiqzjxuIWLIIO S CRAMERFacility:[facility] Hospitaltart: 07-12-2025 End: 38-60-4189Weyzfr flowsheetBehamin Irwin Murvancek DO Work Phone: [facility] OtolaryngologyStart: 07-12-2025 End: 61-22-0223[place]agoau flowsheetBehamin Irwin Murvancek DO Work Phone: [facility] [place] OtolaryngologyStart: 07-12-2025 End: 92-57-3629Crgdqc follow up visit related to original pxBenbrandomin W Murcek DO Work Phone: [facility]avier OtolaryngologyComment on above:Status post partial thyroidectomy (Primary Dx)Start: 07-12-2025 End: 04-02-9741ykzrxwzmyxKQSVUMYV Irwin MONTGOMERYot AvailableStart: 07-12-2025 End: 75-11-2828Npmiwlb encounter procedureBenbrandomin Irwin Murcek DO-Lab [facility] Work Phone: Start: 07-12-2025 End: 63-05-7468vsetxcyarnOcoxqtd M Hoy MD Work Phone: [facility] Work Phone: Start: 07-02-2025 End: 23-54-5742lmeuvuouufJNUYZTJCQE MALENFANTMercy Tiffin HospitalStart: 07-02-2025 End: 28-47-7628Aojvlxrzqj hospital visit by [address] Nuclear MedicineComment on above:ArrivedNausea; Loss of weight; Chronic abdominal painStart: 06-29-2025 End: 09-55-5796lrqrebtczyTXTXMWNTTZ E [facility] Hospitaltart: 06-29-2025 End: 62-83-8125wtueoyjfusOVWHZRPVDN E [facility] Hospitaltart: 06-24-2025 End: 21-70-5599nwmkngsiwoVGGWPEP M [facility] Northtart: 06-24-2025 End: 92-89-5278Owkddyjarh hospital visit by Leyla Salazar MD Work Phone: MWHZ LaboratoryStart: 06-08-2025 End: 71-16-0627Ynbjez flowsheetBemagdalenejamin Irwin Murceherbie DO Work Phone: [facility] [place] OtolaryngologyStart: 06-08-2025 End: 22-77-4567Hktkoj flowsheetBenjamin W Murcek DO Work Phone: noms [place] OtolaryngologyStart: 06-08-2025 End: 49-59-3840Rewqpk follow up visit related to original pxBenjamin W Murcek DO Work Phone: noMS [place] OtolaryngologyComment on above:Status post partial thyroidectomyStart: 06-08-2025 End: 57-50-4891jphdsiiausEJTJKTMQ W MURCEKNot AvailableStart: 06-02-2025 End: 53-86-9496owwopyrvdgEEGVEUGV W MURCEKNot AvailableStart: 06-01-2025 End: 72-39-2365wfzrwtmcouYbscafdw NicholasWilson Health Work Phone: Start: 06-01-2025 End: 56-46-7913Hjrwlnzc ReferredBenbrandomin Irwin Murcek DO-Lab [facility] [place] Work Phone: Start: 06-01-2025 End: 63-63-7963Qxemdni encounter procedureBenjamin W Murcek DO-Lab [facility] [place] Work Phone: Start: 05-24-2025 End: 52-39-7391Euaooy flowsheetBenjamin W Murcek DO Work Phone: NOGS [place] OtolaryngologyStart: 05-24-2025 End: 20-77-6743Jztqri flowsheetBenjamin W Murcek DO Work Phone: NOL[facility]avier OtolaryngologyStart: 05-24-2025 End: 19-68-5172Dqnbub outpatient visit 40 minutesBenbrandomin W Murcek DO Work Phone: noms [place] OtolaryngologyComment on above:Thyroid noduleStart: 05-24-2025 End: 48-72-0809qtiuwixkeuPZWJWMAK W MURCEKNot AvailableStart: 05-10-2025 End: 10-78-6237gzldxhlgfeNLSSSBHDLC E MALECommunity Regional Medical Centertart: 97-23-0086hebpnrlpxxTPQDDKJWKL MALECommunity Regional Medical Centertart: 04-06-2025 End: 32-86-0089ytemlrugmfQQQQNQDSPX E [facility]tart: 02-13-2025 End: 11-41-1021Hjepicsgkv and management of inpatientChrislin Koroma MD Work Phone: mthz [facility] MED SURGComment on above:Abdominal pain, right lower quadrant (Primary Dx); Acute appendicitis with generalized peritonitis without gangrene, perforation, or abscessStart: 02-11-2025 End: 18-99-0640ccrmjkqttuNJPPFZIX [facility] Start: 01-28-2025 End: 02-82-9816fmczfpqmboUNPUFAY M HOYMercy Merit Health Centraltart: 01-28-2025 End: 64-32-4077Jwjmysybxf hospital visit by Leyla Salazar MD Work Phone: mwhZ LaboratoryStart: 01-19-2025 End: 52-76-5846qezflcslstAFHGXGQQAC E MALECommunity Regional Medical Centertart: 01-11-2025 End: 05-84-4746dqgzzwcokhGTTYXD S CRAMERFacility:[facility] Hospitaltart: 01-11-2025 End: 03-30-0972Lowzocr encounter procedureEladia Resendez OD Work Phone: OptometryComment on above:Ocular hypertension, bilateral (Primary Dx); Allergic conjunctivitis of both eyes; Myopia, bilateralStart: 12-30-2024 End: 55-49-8946ufljcxeicqXULQP HACKLEYFacility:[facility] Hospitaltart: 12-30-2024 End: 00-32-4173Yskfocn encounter Clair Martinez OD Work Phone: OphthalmologyComment on above:Conjunctival edema, bilateral (Primary Dx); Dry eye syndrome of bilateral lacrimal glands; Ocular hypertension, bilateralStart: 12-23-2024 End: 61-41-9238qebgvkmasxYAAQMB S CRAMERFacility:[facility] HospitalStart: 12-23-2024 End: 28-84-3783Drsfpjv encounter procedureKirsty Martinez OD Work Phone: OphthalmologyComment on above:Conjunctival edema, bilateral (Primary Dx)Start: 12-18-2024 End: 51-64-7766Bbvreks encounter Clair Martinez OD Work Phone: OphthalmologyComment on above:Conjunctival edema, bilateral (Primary Dx)Start: 12-18-2024 End: 98-16-4055nkjxeganurETSGMN S CRAMERFacility:[facility] HospitalStart: 11-27-2024 End: 14-11-1023qzfjbsoimqWLKZKSA M HOYMercy Hattiesburg HospitalStart: 11-27-2024 End: 12-33-1463Lrvafxtuqh hospital visit by physicianMichael Salazar MD Work Phone: mWHZ LaboratoryStart: 11-24-2024 End: 54-92-1657Icnldl flowsheetBenjamin W Murcek DO Work Phone: noms ENT SANDUSKYStart: 11-24-2024 End: 31-66-6283Frjjpa flowsheetBenjamin W Murcek DO Work Phone: noms ENT SANDUSKYStart: 11-24-2024 End: 39-87-9317pqihtfogjiPQZNXBRD W MURCEKNot AvailableStart: 11-24-2024 End: 05-45-3157Cukxeu outpatient visit 15 minutesBenjamin W Murcek DO Work Phone: noms ENT SANDUSKYComment on above:Thyroid nodule (CMS/HCC) (Primary Dx)Start: 11-10-2024 End: 65-80-0924Lpmham flowsheetBenjamin W Murcek DO Work Phone: noms ENT SANDUSKYStart: 11-10-2024 End: 01-59-5432Vhctky flowsheetBenjamin W Murcek DO Work Phone: noms ENT SANDUSKYStart: 11-10-2024 End: 83-05-9200Xtpwxxrq ReferredBenjamin Murcek DO Work Phone: [facility]-Lab [facility] Work Phone: Start: 11-10-2024 End: 72-40-9275Ussabl outpatient visit 25 minutesBenjamin W Murcek DO Work Phone: noms ENT SANDUSKYComment on above:Thyroid nodule (CMS/HCC) (Primary Dx)Start: 11-10-2024 End: 20-51-0943ipmxstjekyRKMKing's Daughters [facility] Work Phone: Start: 11-03-2024 End: 86-64-2138lbaqqscmqmNGLRHL F ALEXANDRO-ARMSTRONercy Goessel HospitalStart: 11-03-2024 End: 68-04-5350Zwqtntdckb hospital visit by Leyla Salazar MD Work Phone: mthz LaboratoryComment on above:Labial skin tagStart: 10-27-2024 End: 94-06-9215Jcgfgz flowsheetBenjamin W Murcek DO Work Phone: noms ENT SANDUSKYStart: 10-27-2024 End: 04-82-8947Pkjnkg flowsheetBenjamin W Murcek DO Work Phone: noms ENT SANDUSKYStart: 10-27-2024 End: 48-05-3389Iekklk outpatient new 30 minutesKyle Juan Daniel DO Work Phone: noms BWM GENSComment on above:Irregular bowel habits (Primary Dx); Family hx of colon cancerStart: 10-27-2024 End: 56-18-5325swcvgsroqpWUYA DUCKETTNot AvailableStart: 10-27-2024 End: 89-47-6052Eqflcw outpatient new 45 minutesBenjamin W Murcek DO Work Phone: noms ENT SANDUSKYComment on above:Thyroid nodule (CMS/HCC)Start: 10-27-2024 End: 90-66-1117wtagswchabACJKYGNR W MURCEKNot AvailableStart: 09-29-2024 End: 09-97-4973jopnmgxoboRKYML F SABBAGHNot AvailableStart: 09-23-2024 End: 56-92-8214wqxmfvnqsvHGJRBVS M HOYMercy Willard HospitalStart: 09-23-2024 End: 40-64-9096Fracczqgp for general adult medical examination without abnormal findingsSUZEYANN Velasco [facility] Centraltart: 08-17-2024 End: 20-38-5878fnwiwuhofxVXXLD FIRAS [facility] HospitalStart: 08-17-2024 End: 73-67-9652Novtkejdoa hospital visit by Ghassan Clarke MD Work Phone: [facility] UltrasoundComment on above:Chronic lymphocytic thyroiditisStart: 07-09-2024 End: 80-29-8557qvjkkggkwzGZKJEMQ M HOYMercy Hattiesburg HospitalStart: 07-02-2024 End: 48-79-1569oiyapziztvLXIXAFJ M HOYMercy Hattiesburg HospitalStart: 07-02-2024 End: 15-05-0393Axjeovpbfi hospital visit by Leyla Salazar MD Work Phone: OZ LaboratoryStart: 06-18-2024 End: 20-45-4919Vzksjmpuje hospital visit by Leyla Salazar MD Work Phone: OADY LaboratoryStart: 83-04-5029Qxwgja outpatient visit 25 minutesLeroy L Jose Other bvma OfficeStart: 10-01-2023 End: 45-78-1192Obkgelcgkl hospital visit by Leyla Salazar MD Work Phone: VWQN LaboratoryComment on above:Low testosterone level in femaleStart: 11-59-8248Rnvusp outpatient visit 25 minutesLeroy L Jose Other bvma OfficeStart: 01-28-2023 End: 94-40-6541Xodxebcwvh hospital visit by Leyla Salazar MD Work Phone: mthz LaboratoryStart: 10-10-2022 End: 03-75-8243Izqmlgqpdz hospital visit by [facility]ound Room 2 At [facility] UltrasoundComment on above:RUQ painStart: 08-28-2022 End: 92-66-9331Owmaifg encounter Vicki Salazar MD Work Phone: MMBK LaboratoryStart: 08-28-2022 End: 02-35-2615Zohpumakhz hospital visit by Leyla Salazar MD Work Phone: HFYW LaboratoryComment on above:Women's annual routine gynecological examinationStart: 05-24-2022 End: 18-24-7023Cyaccwosro hospital [facility] UltrasoundComment on above:Lump at site of vaccinationStart: 03-22-2022 End: 84-51-5108Aeefqhilh department patient visitHonorio Shelby MD Work Phone: [phone] [place] [address] EDComment on above:Cat bite, initial encounter (Primary Dx)Start: 03-14-2022 End: 71-52-3938Tmuiywugen hospital visit by [facility] UltrasoundComment on above:Infertility associated with anovulation Start: 68-90-5868Towuhx outpatient visit 25 minutesDiogenes Garcia Other bvma OfficeStart: 01-19-2022 End: 69-06-4415Rhytiwhxvu hospital visit by Leyla Salazar MD Work Phone: AFJX LaboratoryStart: 12-30-2021 End: 73-74-6290Ukwlgkgbos hospital visit by Leyla Salazar MD Work Phone: SKDS LaboratoryComment on above:Infertility associated with anovulationStart: 12-14-2021 End: 54-48-9828Tduhamedtx hospital visit by [facility] UltrasoundComment on above:Elevated LFTs; RUQ painStart: 10-26-2021 End: 31-12-3047Tnbwnmyrcu hospital visit by Leyla Salazar MD Work Phone: CEQY LaboratoryStart: 07-11-2021 End: 01-54-4188Yhduuaq encounter Nury Salazar MD Work Phone: XBFI LaboratoryStart: 07-11-2021 End: 07-51-6867Qfjyqwpaqz hospital [facility] Zelda[facility] Pat Screening ScheduleMTHZ LaboratoryComment on above:Endometriosis determined by laparoscopy; Pelvic pain; Endometrial thickening on ultrasound; Irregular menses; Essential hypertension, benign; Pre-op testingPreop testing (Primary Dx)Start: 05-01-2021 End: 01-94-2450Sejgmzqxms hospital visit by Leyla Salazar MD Work Phone: mthz LaboratoryComment on above:Irregular mensesStart: 03-11-2021 End: 20-46-8340Ixvmxdulk department patient visitCassidy Alvarez MD Work Phone: [facility] EDComment on above:Pain due to dental caries (Primary Dx)Start: 15-16-1025Zivkcj outpatient visit 25 minutes Diogenes Lucille Garcia Other bvma OfficeStart: 01-11-2021 End: 45-88-6008Jzpnfavxac hospital visit by Leyla Ugalde Laboratory Start: 09-20-2020 End: 40-92-4538Ibwuzniaoo hospital visit by Leyla Crowder Laboratory Start: 05-18-3716Kwvqyxf encounter Vicki Jaquezity:X3Brinx: 09-02-2020 End: 10-15-5253Uyutdzociq hospital visit by Darrius Lr Work Phone: mthz ORStart: 08-30-2020 End: 05-56-6590Ggcftghpfi hospital visit by Leyla Crowder Laboratory Start: 08-26-2020 End: 93-90-6016Smfqcaqbak hospital visit by [facility] Boby Pat Screening ScheduleMTHZ PRE ADMITStart: 06-17-2020 End: 44-00-8672Nsbfzrqoy department patient visitChjunior Pawel Heath Work Phone: [facility] EDComment on above:Cyst of ovary, unspecified laterality (Primary Dx); Non-intractable vomiting with nausea, unspecified vomiting typeStart: 04-25-2020 End: 94-64-3696Loiaamwnsh hospital visit by [facility] Comment on above:AnovulationStart: 04-18-2020 End: 48-33-2775Yzrezhvtyz [facility] RoomF[facility] UltrasoundComment on above:Infertility, femaleStart: 03-29-2020 End: 62-08-2941Dbvixledgf hospital visit by [facility] Comment on above:Christie's diseaseStart: 03-24-1911Ldpoae outpatient visit 25 minutesDiogenes Lucille BlackGarcia Other BVLF OfficeStart: 10-21-2019 End: 84-01-6582Kbamiyz encounter procedureDOFLASH Jackmancility:L9Wstpv: 06-23-2019 End: 03-47-6831Kjdiizseco hospital [facility] Ian [facility] ECHOComment on above:ArrivedStart: 94-41-7923Zksken outpatient visit 25 minutesDiogenes Lucille Garcia Other bvma OfficeStart: 86-85-7707Uimkpe outpatient new 60 minutesDiogenes Garcia Other bv[facility] Office Procedures DateProcedureProcedure DetailPerforming ClinicianStart: 97-58-9061Wdfkaei emptying imaging studyJacqueline Malenfant SENIOR INTERACTIVE PRODUCER - SOFTWARE CLIENT ARCHITECT Work Phone: Start: 47-03-8190Cusvq/antitoxin assay tissue culture Michael Salazar MD Work Phone: Start: 36-23-0542Bfjqqzosd serum plasma/whole blood Mumtaz Castillo MD Work Phone: Start: 37-87-8389Wmhmx of magnesiumChristopher Kelsea Castillo MD Work Phone: Start: 89-19-9893REHEZ METABOLIC PANEL W/ REFLEX TO MG FOR LOW KChristnarciso Castillo MD Work Phone: Start: 02-07-0715Xf thorax w/contrast material Harpreet Koroma MD Work Phone: Start: 88-37-2131Fmbqroiwlvsyp metabolic panel Harpreet Koroma MD Work Phone: Start: 15-85-4797Fawre-dna/rna gi pthgn multiplex probe tq 12-25Jacqueline Malenfant SENIOR INTERACTIVE PRODUCER - SOFTWARE CLIENT ARCHITECT Work Phone: Start: 01-11-2025 End: 89-94-5104Wexeih field xm uni/bi w/interp extended examJon H Cooperrider OD Work Phone: Start: 30-62-8927Ynlyl of ferritinMichael Salazar MD Work Phone: Start: 12-43-7938Vb soft tissue head & neck real time imge docmAshaista Clarke MD Work Phone: Start: 95-23-6859Otyfvldvjbhsn metabolic panelMichael Salazar MD Work Phone: Start: 69-96-9443Hmgsf count complete auto&auto difrntl wbcMichael Salazar MD Work Phone: Start: 41-08-3091Acbn recent diastolic blood pressure < 80 mm hgLeroy SchroederStart: 95-12-1728Ngki recent systolic blood pressure <130 mm hgDiogenes BlackederStart: 64-43-6711Uxwkpqc stimulating hormone measurementLerbruno GarciaStart: 64-24-7437Dlsouavhs measurementLerbruno Garcia Start: 70-44-0286Labtx of testosterone freeCarmen F Alexandro Lr DO Work Phone: Start: 10-74-5070Vradmk cur meds by virgin[place] GarciaStart: 64-88-1375Jauff of thyroid stimulating hormone tshDiogenes Garcia MD Work Phone: Start: 49-53-6159Etjxyvu stimulating hormone measurementLerbruno GarciaStart: 10-69-8703Ivuufcyug measurementDiogenes Garcia Start: 03-37-2373Cz abdominal real time w/image limitedMichael Salazar MD Work Phone: Start: 41-32-4556Ybnzevpzjkd observation [Identifier] in Cervix by Cyto stainMt MtStart: 66-44-8593Iv transvaginalCarmen F Alexandro Lemag DO Work Phone: Start: 88-59-2278Ymjucbq stimulating hormone measurementLerbruno GarciaStart: 44-62-5022Dtepbafzc measurementDiogenes Garcia Start: 43-91-9382Lrhryk cur meds by [place] GarciaStart: 01-19-2022 Assay of thyroid stimulating hormone Radha Garcia MD Work Phone: Start: 38-53-4985Nenpw of progesteroneCarmen F Alexandro Lr DO Work Phone: Start: 54-25-3724Kj abdominal real time w/image limitedMichael Salazar MD Work Phone: Start: 53-23-5273Jkeaimpfgctia metabolic panelMichael Salazar MD Work Phone: Start: 45-11-6847Zbzyvmketferl metabolic panelCarmen F Alexandro Lr DO Work Phone: Start: 79-09-2480DNLTT-19Lurobert Orellana MD Work Phone: Start: 68-47-0395Svooxcfydgnd chorionic quantitative Jesica Cantor SENIOR INTERACTIVE PRODUCER - CN Work Phone: Start: 01-46-5078Igiyryg stimulating hormone measurementDiogenes GarciaStart: 27-47-2607Ownwcacsm measurementDiogenes Garcia Start: 16-54-6955Tou meds verified w/pt or reLeroy JoseStart: 01-11-2021 Assay of thyroid stimulating hormone tshDiogenes Garcia Work Phone: Start: 01-32-3837Jberd of thyroxine totalDiogenes Garcai Work Phone: Start: 37-08-6549Jbarx hepatitis panelMichael Salazar Work Phone: Start: 60-92-2077Tfmhlyw function panelMichael Salazar Work Phone: Start: 61-57-3296Ohzzopxiargq chorionic qualitative Lizbet Lr Work Phone: Start: 92-43-410138 hydroxy includes fractions if performedMichael Salazar Work Phone: [phone]-art: 95-73-5508Apmyf of free thyroxineDoflash Salazar Work Phone: [phone]: 24-02-7687Swgen of insulin totalMichael Salazar Work Phone: [phone]: 99-11-4159Hyijz of ironDoflash Salazar Work Phone: [phone]-art: 12-49-3969Okmus of magnesiumDoflash Salazar Work Phone: [phone]-: 82-44-6665Btace of thyroid stimulating hormone tshMichael Salazar Work Phone: [phone]-art: 45-45-3599Wqbgh count complete auto&auto difrntl wbcMichael Salazar Work Phone: [phone]: 57-56-7367Hipxxcspueqtc metabolic panelMichael Salazar Work Phone: [phone]-: 49-17-0610ENREQ-19Luis E Reyna Work Phone: Start: 90-30-3911Hrxfr of lipaseChristopher Pawel Heath Work Phone: Start: 59-00-6492Kbbas count complete auto&auto difrntl wbcChristopher Pawel Heath Work Phone: Start: 56-86-3916Jptyfxxutlnj chorionic qualitative Mumtaz Heath Work Phone: Start: 51-01-5290Plhvcxaypi microscopic only Mumtaz Heath Work Phone: Start: 94-79-9915Zwiou dip stick/tablet rgnt auto w/o microscopyChjose Pawel Kumar Work Phone: Start: 98-59-9726Vnmfi of progesteroneSusan Sabina Cantor Work Phone: Start: 40-59-3199Rw transvaginalSusamagdalene Cantor Work Phone: Start: 30-82-8374Miqxd of thyroid stimulating hormone tshSusamagdalene Cantor Work Phone: Start: 18-77-4554Boq meds verified w/pt or reLeroy JoseStart: 69-15-9628Tvfwzuy stimulating hormone measurementPachecobruno Garcia Start: 29-59-1751Dhlmqwydp measurementLerbruno Blakcselect medical specialty hospital - cincinnati northStart: 10-21-2019 End: 20-75-5066Qexnxywpllk examination of blood, cultureDOUGLAS HOYComment on above:Performed By: #### SEDR #### [facility] [address] [place] [address] Tamir NoblesPerformed By: #### [id number] #### [facility] [address] [place] [address] Tamir KarenStart: 68-53-0465Ddortd cultureComment on above:Performed By: #### [id number] #### Mae [facility] [address] [place], [place] [address]Mscmi: 06-08-4901Fdza-Thyroid Antibodies (Anit-TPO & Anti Tg) Diogenes GarciaStart: 57-06-2705Cqysu of thyroid stimulating hormone tshLerbruno Blackselect medical specialty hospital - [facility] northStart: 98-67-9143Gxdkk of thyroxine totalLerbruno GarciaStart: 84-30-1779Haa meds verified w/pt or reLeroy JoseStart: 30-35-1437Vufcgua stimulating hormone measurementLerbruno GarciaStart: 83-89-9993Reienbdbc measurementLerbruno Blackselect [facility] northStart: 62-95-0109Wgl meds verified w/pt or reLeroy Wayneselect medical specialty hospital - [facility] northStart: 52-26-2752Gnzzsozwkzw observation [Identifier] in Cervix by Cyto Javier Salazar MD Work Phone: Plan of Treatment DateCare ActivityDetailAuthorStart: 15-56-6510ODqW/Tdap/Td vaccine (2 - Td or Tdap)DTaP/Tdap/Td vaccine (2 - Td or Tdap)[facility]OSPITALStart: 45-17-0842Onsrn microalbumin profileDTaP,Tdap,Td Vaccine (2 - Td or Tdap) [facility] Hospitaltart: 02-89-0907Ulhywbnf screenDiabetes screenRiverside Walter Reed HospitalStart: 55-80-1581Wguhlbnnr for malignant neoplasm of cervixBON AULTMAN HOSPITALStart: 30-33-9018Kdofrhvy screenDiabetes [facility] PatrickStart: 09-28-2025 End: 21-12-6138Dvvyljt encounter procedureNOELLIS FISCHEL [facility] ENDOCRINOLOGYStart: 09-14-2025 End: 19-27-4540Hyqfgiq encounter procedureUN[facility] Part of [facility] HospitalComment on above:yearlyStart: 08-28-2025 Screening for malignant neoplasm of cervixPap smearCARILION CLINIC Start: 07-20-2025 End: 79-65-4847Qblshdi encounter lzkfebtjv73/07/2025 2:30 PM EDT Office Visit [facility] Optometry [address] [id number] Eladia Resendez II, OD [address] [place] [address] Pressure check ([place] Medicaid)OptometryComment on above:Pressure check ([place] Medicaid)Start: 07-12-2025 End: 83-71-9673Tracozd encounter procedureNOMS LambertJavier OtolaryngologyComment on above:ArrivedStart: 07-09-2025 End: 73-77-4665Mwhfbysljcn [Units/volume] in Serum or PlasmaNOMS Healthcare Work Phone: comment on above:Expected: 07/09/2025 (Approximate), Expires: 06/08/2026Start: 07-09-2025 End: 75-52-8847Ehpackykcrbivoej (T3) [Mass/volume] in Serum or PlasmaT3 Lab Routine Status post partial thyroidectomy Expected: 07/09/2025 (Approximate), Expires: 06/08/2026NOMS HealthcareComment on above:Expected: 07/09/2025 (Approximate), Expires: 06/08/2026Start: 26-42-7684XOIFI-19 Vaccine ( season)COVID-19 Vaccine ( season)Bon [facility] CampusStart: 06-08-2025 End: 27-22-1530Hlumprj encounter procedureNOMS Herrera OtolaryngologyComment on above:ArrivedStart: 05-24-2025 End: 72-43-6137Jccwqxh [Mass/volume] in Serum or PlasmaCalcium Lab Routine Thyroid nodule Expected: 05/24/2025 (Approximate), Expires: 05/24/2026NOMS HealthcareComment on above:Expected: 05/24/2025 (Approximate), Expires: 05/24/2026Start: 05-24-2025 End: 39-38-4377Howpqgxxhv.intact [Mass/volume] in Serum or PlasmaPTH, intact Lab Routine Thyroid nodule Expected: 05/24/2025 (Approximate), Expires: 05/24/2026 NOMS HealthcareComment on above:Expected: 05/24/2025 (Approximate), Expires: 05/24/2026Start: 05-24-2025 End: 74-78-9910Dtlhsov encounter procedureNOMS ENT SANDUSKYComment on above: ArrivedStart: 05-24-2025 End: 29-17-0242Nkyjqtkmwti [Units/volume] in Serum or PlasmaNOMS Healthcare Work Phone: comment on above:Expected: 05/24/2025 (Approximate), Expires: 05/24/2026Start: 05-24-2025 End: 43-09-5573Hmcxwvyjdmzbubnn (T3) [Mass/volume] in Serum or PlasmaT3 Lab Routine Thyroid nodule Expected: 05/24/2025 (Approximate), Expires: 05/24/2026 NOMS HealthcareComment on above:Expected: 05/24/2025 (Approximate), Expires: 05/24/2026Start: 70-99-1120Neifkmikk vaccinationFlu vaccine (#1)Bon [facility] CampusStart: 17-15-1446Nokfm of thyroid stimulating hormone tshTSH [facility] Start: 33-06-0492Kikfz of thyroxine [address] Start: 01-11-2025 End: 55-06-5397Umrqezy encounter krspqypge41/31/2025 2:30 PM EDT Office Visit [facility] Opt[facility] [address] [place], [place] [id number] Eladia Resendez II, OD [address] [place], [place] [id number] Dilated Fundus Exam, Red Eye Follow UpOptometryComment on above:Dilated Fundus Exam, Red Eye Follow UpStart: 12-30-2024 End: 72-28-6649Ubseugw encounter obfkowxhu09/19/2025 3:30 PM EDT Office Visit [facility] Ophthalmology [address] [place] [address] Kirsty Martinez, OD [address] [place] [address] REDEYE CHECKOphthalmologyComment on above:RED EYE CHECKStart: 12-23-2024 End: 77-97-8260Kkmwdqc encounter hwljwabae89/12/2025 3:30 PM EDT Office Visit [facility] [address] [place] [address] Kirsty Martinez, OD [address] [place] [address] conjunctival edema follow upOphthalmologyComment on above:conjunctival edema follow upStart: 11-24-2024 End: 35-49-1167Qyevpir encounter yeqkmirre85/11/2025 10:45 AM EST Office Visit [facility] [address] [place] [id number] Michele Peterson, DO [address] [place] [address] NOMS KIRILL JONESYStart: 11-10-2024 End: 76-99-4165Iqdljve encounter procedureNOMS ENT SANDUSKYComment on above: ArrivedStart: 10-27-2024 End: 43-44-1335Ztfnpce encounter procedureNOMS ENT SANDUSKYComment on above: Thyroid nodule (CMS/HCC)ArrivedStart: 70-45-0663Sfevvkzery ScreenDepression ScreenBON AULTMAN HOSPITALStart: 09-08-2024 End: 05-55-4658Pnmabvy encounter vrovbvoir06/26/2024 10:15 AM EST Office Visit [facility] OBST[facility] & [facility]YNECOLOGY Part of [facility] [address] [id number] Lizbet Calderon, [address] [place], [place] [id number] [facility] OBSTETRICS & GYNECOLOGY [facility] Comment on above:yearlyStart: 58-93-4754BOOWL-19 Vaccine ( season) COVID-19 Vaccine ( season)[facility]ITALStart: 06-14-2024 COVID-19 Vaccine ( season)COVID-19 Vaccine ( season)[facility] HospitalStart: 78-32-1342Vrvfpjicm vaccinationFlu vaccine (#1)[facility]ITALStart: 09-03-2023 End: 65-28-3963Gsyrxqw encounter xabxtwbvy27/21/2023 Office Visit Obstetrics and Gynecology Lizbet Calderon, DO [address] [place], [place] [id number] [facility] OBSTETRICS & GYNECOLOGY Part [facility] Centertart: 29-25-2774Yybyj of thyroid stimulating hormone tshTSHBSCCI Hospital [facility] Start: 46-31-0086Feovm of thyroxine xllxeB3FpqtvthpuSCCI Hospital [facility] Start: 00-28-0949Fwdfknzpij measurementCreatinine [facility] CenterStart: 78-84-6219Khpmjgnqy monitoringPotassium monitoring [facility] HospitalStart: 34-99-1476Bntarvzsyq measurementCreatinine monitoringMercy HealthStart: 13-52-2393Ueifiugrp monitoringPotassium monitoringMercy Health Start: 04-32-3256Jqjbrkmbon measurementCreatinine monitoringMercy Health Work Phone: start: 77-23-7273Adxqczqrt monitoringPotassium monitoringMercy Health Work Phone: start: 45-95-0465Cqcbdnjcs vaccinationFlu vaccine (#1) ROSETTA MCKENNA [facility]ITALStart: 02-12-2022 End: 15-77-3602Jovyprj encounter baujanrfc35/02/2022 Office Visit Obstetrics and Gynecology Lizbet Calderon, DO [address] [place] [address] [facility] OBSTETRICS & GYNECOLOGY Part [facility] Medical Centertart: 28-75-2685U6 [Mass/Vol]B4UsczjoydpUbiq Mobile [facility] Start: 39-41-9948Ipnnyje stimulating hormone measurementASSAY THYROID STIM HORMONELincolnImmune System Therapeutics Start: 61-56-6723Ttvkvgozb measurementASSAY OF TOTAL THYROXINELincolnImmune System Therapeutics Start: 60-07-7596ETG QnTSHLincolnUbiq Mobile [facility] Start: 76-26-1951Shzaaqcdsa measurementCreatinine monitoringMercy Health- [place], [place]Start: 60-06-8195Aehayoepg monitoringPotassium monitoringMercy Health- [place], [place]Start: 08-15-2021 End: 95-03-2415Plgndti encounter ozuvpfvmk64/02/2021 Office Visit Obstetrics and Gynecology Lizbet Calderon, DO [address] [facility] [place] [id number] [facility] GYNECOLOGYStart: 07-14-2021 End: 43-30-8902Friimeihx to same day surgery tyuelw2107/14/2021 Surgery IP Unit Lizbet Calderon, DO [address] [place] [address] LAPAROSCOPY EXPLORATORY - LYSIS OF ADHESIONS, CHROMOPERTUBATIONMTHZ ORComment on above:LAPAROSCOPY EXPLORATORY - LYSIS OF ADHESIONS, CHROMOPERTUBATIONStart: 71-77-9190Vzvntvcvlb hospital visit by vhhiwgjul40/01/2021 Hospital Encounter IP Unit Lizbet Calderon, DO [address] [place] [address] [phone] [facility] OR Start: 99-19-1408Rzbrhagcpe measurementCreatinine monitoringL[place], [place] Start: 70-15-1697Zvitefpld monitoringPotassium [place] Start: 97-83-2542Wskjcixga vaccinationFlu vaccine (#1)[facility] Work Phone: start: 85-76-0204Iifvfscs cancer screenCervical cancer screenLanse, KYStart: 54-45-9224Asnorqhwl for malignant neoplasm of cervixOhiohealth Berger HospitalStart: 68-87-6605Iplfkuabqg ScreenDepression ScreenOhiohealth Berger HospitalStart: 32-74-5409HLJ screeningHIV screenLanse, KYComment on above:Postponed from 2004 (Patient Refused)Start: 55-40-9252Snipe of thyroid stimulating hormone tshASSAY THYROID STIM HORMONEBlerie county medical centerImmune System Therapeutics Start: 69-96-0112Zetue of thyroxine totalASSAY OF TOTAL THYROXINEGiftango Start: 01-12-2021 End: 05-44-2431Lgitta Visit01/12/2021 Office Visit Obstetrics and Gynecology Jesica Cantor, SENIOR INTERACTIVE PRODUCER - CNM [address] [place] [address] [facility] GYNECOLOGYStart: 09-20-2020 End: 35-67-9731Uadymn Visit09/20/2020 Office Visit Obstetrics and Gynecology Lizbet Calderon, [address] [place] [address] [facility] GYNECOLOGYStart: 09-02-2020 End: 69-17-4274Kebwxgps EncounterMT ORComment on above:DILATATION AND CURETTAGE HYSTEROSCOPYStart: 46-39-6255Ypiotxlqv vaccinationLanse, [place] Start: 08-97-4553GTtY/Tdap/Td vaccine (1 - Tdap)DTaP/Tdap/Td vaccine (1 - Tdap) [place], KYComment on above:Postponed from 2008 (Not Indicated) Start: 35-07-2567Hqfzyvlwh vaccine (1 of 2 - 2-dose childhood series)Varicella vaccine (1 of 2 - 2-dose childhood series)[place], [place]Comment on above: Postponed from 1990 (Not Indicated)Start: 05-56-0918UZK screenHIV screen [place], [place]Comment on above:Postponed from 2004 (Not Indicated) Start: 04-53-6164P7 mass vmicH0OhpbulngwCastle Rock [facility] Start: 88-30-8774Gdmcntksqkg QnTSHBlanchPlatte County Memorial Hospital - [facility] Start: 75-43-1795Qzyebmtwnw measurementCreatinine monitoringLanse, KYStart: 84-66-6486Tlemtsifx monitoringPotassium monitoringL[place], KYStart: 22-16-0560Gqvlmgpht vaccinationFlu vaccine (#1)[place], KYStart: 07-94-9303Gaaxoxpqj for malignant neoplasm of cervixHPV (without or with Pap)[facility] HospitalStart: 26-35-0307Pwfhnpbka for malignant neoplasm of cervixCervical Cancer ScreeningMercy Health St. Elizabeth Boardman Hospitaltart: 83-24-5335BHoU/Tdap/Td vaccine (1 - Tdap)DTaP/Tdap/Td vaccine (1 - Tdap)[facility] HospitalStart: 96-49-3586Falkzhlow B vaccine (1 of 3 - 19+ 3-dose series)Hepatitis B vaccine (1 of 3 - 19+ 3-dose series)[facility]ICStart: 2007 Anxiety ScreeningAnxiety ScreeningMercy Health St. Elizabeth Boardman Hospitaltart: 96-04-8032Cradhpafzj ScreeningDepression ScreeningMercy Health St. Elizabeth Boardman Hospitaltart: 40-12-2276Slrwylxrx C screeningHepatitis C ScreeningMercy Health St. Elizabeth Board[facility] Hospitaltart: 54-43-6427PIF screeningHIV ScreeningMercy Health St. Elizabeth Boardman Hospitaltart: 19-72-5603QQFOV-19 Vaccine (1)COVID-19 Vaccine (1)[facility]uff[facility] HospitalCircl Phone: start: 67-19-5305GZE screeningHIV [facility] Start: 46-39-2563Xjiilzkrz Vaccine (1 of 2 - 13+ 2-dose series)Varicella Vaccine (1 of 2 - 13+ 2-dose series)[facility] Hospitalart: 61-20-5372WECQW-19 Vaccine (1)COVID-19 Vaccine (1)[facility] [employer] Phone: start: 36-74-8717Itsokbhegc ScreenDepression Screen [facility] Hospitalart: 80-98-7294UWRNC-19 Vaccine (1)COVID-19 Vaccine (1)[facility] Hospitalart: 02-40-4487Lwneergjb vaccine (1 of 2 - 2-dose childhood series) Varicella vaccine (1 of 2 - 2-dose childhood series)[facility] HospitalStart: 73-21-9807COXTQ-19 Vaccine (#1)COVID-19 Vaccine (#1)[facility] Start: 83-64-2903Ymalrurlz B vaccine (1 of 3 - 3-dose series)Hepatitis B vaccine (1 of 3 - 3-dose series)[facility] End: 02-14-2025 DIFF TOXIN/ANTIGENC DIFF TOXIN/ANTIGEN Microbiology Routine 36 Hours Expiring for 36 Hours starting 02/14/2025 until 02/14/2025on [facility] CampusComment on above:36 Hours Expiring for 36 Hours starting 02/14/2025 until 02/14/2025 End: 88-41-5897Wkawrlfuiehi StoolTungle.meComment on above:Once for 1 Occurrences starting 01/27/2025 until 01/27/2025 End: 54-77-9319UQS W Auto Differential panel - BloodCBC auto differential Lab Routine Daily for 5 Days starting 02/14/2025 until 02/18/2025, 1 completedBon nGage LabsComment on above:Daily for 5 Days starting 02/14/2025 until 02/18/2025, 1 completedClostridium Difficile Toxin/AntigenClostridium Difficile Toxin/Antigen Microbiology Routine 06/24/2025 5:20 PM EDTBon nGage Labs End: 29-22-1291Jvdrhvnxinegm metabolic 2000 panel - Serum or PlasmaComprehensive Metabolic Panel Lab Routine Daily for 5 Days starting 02/15/2025 until 02/19/2025on nGage LabsComment on above:Daily for 5 Days starting 02/15/2025 until 02/19/2025 End: 07-37-4069Pmtumzooquuei procedure, preparation of smear, genital sourcePAP SMEAR Lab Routine Women's annual routine gynecological examination 1 Occurrences starting 08/28/2022 until 08/28/2022ON [employer] Work Phone: comment on above:1 Occurrences starting 08/28/2022 until 08/28/2022 End: 61-98-3727XWSA-2D-M-MODE QXGRCLXYHRWB-5W-R-MODE COMPLETE Echocardiography Routine One Time for 1 Occurrences starting 06/23/2019 until 06/23/2019[facility]- [place], [place]Comment on above:One Time for 1 Occurrences starting 06/23/2019 until 06/23/2019 End: 72-07-7367Ltdarghckrzd, stoolBon nGage LabsComment on above:Once for 1 Occurrences starting 06/24/2025 until 06/24/2025 End: 09-16-5810Vnnff Fat, QualitativeBon [facility] Work Phone: Comment on above:Once for 1 Occurrences starting 06/24/2025 until 06/24/2025 End: 77-94-2543Irhbngyd [Mass/volume] in Serum or PlasmaBON [employer] Comment on above:Once for 1 Occurrences starting 06/18/2024 until 06/18/2024 End: 13-76-6109Ofdbgrsg [Mass/volume] in Serum or PlasmaTUCSON VA MEDICAL CENTER [employer] Work Phone: Comment on above:Once for 1 Occurrences starting 07/02/2024 until 07/02/2024Gastrointestinal Panel, MolecularGastrointestinal Panel, Molecular Microbiology Routine 01/27/2025 11:01 AM EDTBon nGage LabsGastrointestinal Panel, MolecularGastrointestinal Panel, Molecular Microbiology Routine 06/24/2025 5:20 PM EDManaged Systems End: 01-27-2025H. pylori antigenWickenburg Regional Hospital [facility] Work Phone: comment on above:Once for 1 Occurrences starting 01/27/2025 until 01/27/2025 End: 61-92-7477TkL1v (Bld) [Mass fraction]Hemoglobin A1C Lab Routine Once for 1 Occurrences starting 08/30/2020 until 08/30/2020[facility] GeneralAdChoiceComment on above:Once for 1 Occurrences starting 08/30/2020 until 08/30/2020HbA1c (Bld) [Mass fraction]Hemoglobin A1C Lab Routine 08/30/2020 3:39 PM [facility] HospitalTradersHigh[facility] [place] End: 49-27-4722Zoka [Mass/volume] in Serum or PlasmaTUCSON VA MEDICAL CENTER [employer] Work Phone: Comment on above:Once for 1 Occurrences starting 06/18/2024 until 06/18/2024 End: 81-41-5989Jztqqtrdhm, StoolBon nGage LabsComment on above:Once for 1 Occurrences starting 06/24/2025 until 06/24/2025Oxygen therapy [Minimum Data Set]Initiate Oxygen Therapy Protocol Respiratory Care Routine Daily until discontinued starting 09/02/2020[facility] GeneralAdChoiceComment on above:Daily until discontinued starting 09/02/2020Oxygen therapy [Minimum Data Set]Initiate Oxygen Therapy Protocol Respiratory Care Routine Daily until discontinued starting 02/14/2025on nGage LabsComment on above:Daily until discontinued starting 02/14/2025 End: 49-06-2834Zydakkuqjf elastase, fecalBon SecRock ControlComment on above:Once for 1 Occurrences starting 06/24/2025 until 06/24/2025 End: 26-86-9213Sdgfyzujt studySurgical Pathology Lab Routine Labial skin tag 1 Occurrences starting 11/03/2024 until 5Bon nGage LabsComment on above:1 Occurrences starting 11/03/2024 until 11/03/2024Phase I & II - metered glucosePhase I & II - metered glucose Point of Care Testing Routine As Needed until discontinued starting 09/02/2020[facility] GeneralYoutopia, [place]Comment on above:As Needed until discontinued starting 09/02/2020Surgical PathologySurgical Pathology Lab Routine Release Upon Ordering for 1 Occurrences starting 09/02/2020[facility] [place], [place]Comment on above:Release Upon Ordering for 1 Occurrences starting 09/02/2020 End: 62-31-7254TXKFUDAE PATHOLOGY REPORTSURGICAL PATHOLOGY REPORT Lab Routine Once for 1 Occurrences starting 11/03/2024 until 11/03/2024on [facility] PhoenixRock ControlComment on above:Once for 1 Occurrences starting 11/03/2024 until 11/03/2024 End: 98-93-4871B3, UptakeT3, Uptake Lab Routine Once for 1 Occurrences starting 08/30/2020 until 08/30/2020[facility] [place], [place]Comment on above:Once for 1 Occurrences starting 08/30/2020 until 08/30/2020T3, UptakeT3, Uptake Lab Routine 08/30/2020 3:39 PM Three Screen GamesCleveland Clinic [facility] GeneralYoutopia, [place] End: 70-29-1857Z0G7 Lab Routine Once for 1 Occurrences starting 08/30/2020 until 08/30/2020[facility] [place], KYComment on above:Once for 1 Occurrences starting 08/30/2020 until 08/30/2020T4T4 Lab Routine 08/30/2020 3:39 PM [place] End: 90-08-6181R0Xpmxr Health Work Phone: Comment on above:Once for 1 Occurrences starting 01/19/2022 until 01/19/2022 End: 77-50-9118X9UOV [employer] Work Phone: Comment on above:Once for 1 Occurrences starting 01/28/2023 until 01/28/2023 End: 28-05-5235Umdmxdaovasb Free and Total, Non-MaleTestosterone Free and Total, Non-Male Lab Routine Low testosterone level in female 1 Occurrences starting 10/01/2023 until 10/01/2023ON [facility] [address] [facility] HOSPITALAdvanced BioHealingComment on above:1 Occurrences starting 10/01/2023 until 10/01/2023 End: 40-41-9747Bfmxcio Peroxidase AntibodyThyroid Peroxidase Antibody Lab Routine Christie's disease 1 Occurrences starting 03/29/2020 until03/29/2020 [employer], SCComment on above:1 Occurrences starting 03/29/2020 until 03/29/2020Thyroid Peroxidase AntibodyThyroid Peroxidase Antibody Lab Routine Christie's disease 03/29/2020 11:51 AM EDRETAIL PRO, [place] End: 82-30-3365ND EXTREMITY LEFT NON VASC LIMITEDCARILION CLINIC Work Phone: Comment on above:1 Occurrences starting 05/24/2022 until 05/24/2022 Immunizations Immunization DateImmunizationNotesCare NxqgjebqTdkdzzhu87-72-9764ujpgvsojk, seasonal, injectable, preservative freeBenjamin Murcek DO Work Phone: [facility] ServicesXmymbtxgfe66-49-8995umvlkrmaj, injectable, quadrivalent, preservative Chepe Salazar MD Work Phone: [facility] RLXCJP61-97-4539Tyorrpgu, quadrivalent, recombinant, injectable influenza vaccine, preservative free Michele Murcek DO Work Phone: [facility] ServicesSvvovielbc69-41-2264xdhxswj toxoid, reduced diphtheria toxoid, and acellular pertussis vaccine, Paris Shelby MD Work Phone: [facility] KXNAMO92-52-4085Fkuydips, quadrivalent, recombinant, injectable influenza vaccine, preservative free Michele Murceherbie DO Work Phone: [facility] ServicesSdsomjzeaq38-03-1295Kwnuddta, quadrivalent, recombinant, injectable influenza vaccine, preservative freeBenjamin Murcek DO Work Phone: [facility] ServicesOpfxoxpfbq46-24-0529Rslthakj, quadrivalent, recombinant, injectable influenza vaccine, preservative freeBenjamin Murcek DO Work Phone: [facility] ServicesDmrvhqawzv05-54-3074Vsxdjwiws Vaccine, unspecified formulationTriHealth [facility], PU01-17-9562fxpiebmai virus vaccine, unspecified formulationBenjamin Murcek DO Work Phone: [facility] ServicesNmikoppcpl72-18-2747lrftbvjev, seasonal, injectableBenjamin Murcek DO Work Phone: [facility] ServicesYfludetmir21-43-5943knxwyemdu, injectable, quadrivalent, preservative Chepe Salazar MD Work Phone: [facility]WCQT89-18-4774dpfwrinstakn polysaccharide vaccine, 23 valentBenjamin Murcek DO Work Phone: [facility] ServicesOasrrslmni16-86-2411bcxdlfhyb, injectable, quadrivalent, preservative Chepe Salazar MD Work Phone: [facility]ICVPBIQP92-72-3214trkvvwajk, seasonal, injectable, preservative freeBenjamin Murcek DO Work Phone: [facility] Payers DatePayer CategoryPayerPolicy [id number]-pay2024[place]icaid[place] Subscriber Plan / Payer (Effective 2024-Present) Name: Quyen Lewis Relation to Subscriber: Self Name: Quyen Lewis Payer ID: [id number] (NAIC) Group ID: Not on file Type: Medicaid Address: [address] [id number] 2018Medicaid (Managed Care)[place] [employer] [id number]gleville Hospital xxxxxxxxxxxx 2017-Present [phone] [place] [id number] xxxxxxxxxxxx [id number]lle Hospital [id number] 2017- Present [phone] [place] [address] [id number] [id number].3.643[id number] 2..1.270697.3.57[id number] 2..1.157881.3.57[id number] 2..1.374486.3.57[id number] 2..1.025827.3.57[id number] 2..1.264381.3.57[id number] 2.16.840.1.340825.3.57[id number] 2.16840.1.060648.3.57[id number] 2.16.840.1.165008.3.57[id number] 2.16840.1.797641.3.57[id number] 2.16840.1.845841.3.57[id number] 2.0.1.721975.3.57[id number] 2.840.1.235946.3.57[id number] 2.0.1.490737.3.57[id number] 2.0.1.625706.3.57[id number] 2.840.1.100012.3.57[id number] 2.840.1.932660.3.57[id number] 2.840.1.439067.3.57[id number] 2.840.1.401550.3.57[id number] 2.16840.1.715013.3.57[id number] 2.840.1.446700.3.57[id number] 2.0.1.911063.3.57[id number] 2.16840.1.179614.3.57[id number] 2.16.840.1.714977.3.579.2.1259 [id number] 2.16840.1.876136.3.08603-64-8701Wjgm-[id number] 2.16840.1.3[id number] 2.840.1.613192.3.579.2.531 [id number] 2.16840.1.300960.3.579.2.531 Social History DateTypeDetailFacilityStart: 25-20-3502Nlpdqf smokerSalt [place] City [employer] Start: 55-64-2076XktlgcocmEn[employer] Start: 03-19-2019 End: 86-68-6776Klbbsrc smoking status [place]Former [place] Start: 07-14-2008 End: 36-43-2998Qkheruk of tobacco useCigarette SmokerKettering Health Main Campusart: 03-19-2019 End: 95-74-9928Kywmoopbbz smoked current (pack per day) - ReportedBON AULTMAN HOSPITALStart: 03-19-2019 End: 15-08-4146Izgqbxk intakeNoBON [facility] Ohioart: 55-42-0484Zis Assigned At BirthNot on fileAultman Alliance Community Hospital: 03-29-2020 End: 83-38-8525Eqaxvdb intakeCurrent non-drinker of alcohol (finding)[facility] Campusart: 03-29-2020 End: 28-71-0601Empnpvn CommentpatchesLanse, KYExposure to SARS-CoV-2 (event)Unable to assessAultman Alliance Community Hospital: 03-29-2020 End: 48-27-8842Tqxjrcp use and exposureNever usedAultman Alliance Community Hospital: 03-12-2022 End: 56-27-6766Tbyzmpbn to SARS-CoV-2 (event)Not sureAultman Alliance Community Hospital: 52-44-9806Zab Assigned At BirthFeMercy Hospital of Coon Rapidsart: 07-14-2008 End: 56-77-3064Plaprqo of tobacco useCurrent smokerTUCSON VA MED[facility]ENTER [employer] Work Phone: patient Health Questionnaire 9 item (PHQ-9) total score [Reported]0[facility] [employer] [facility]OSPITALStart: 65-90-9448Ruhoksc CommentStill on patchesTUCSON VA MEDICAL CENTER [employer] [facility]ITALStart: 30-11-8584Uprlab identityIdentifies as female gender (finding)[facility] [employer] [facility]ITALStart: 55-52-4583Hqabhi orientationHeterosexual (finding)[facility] [employer] [facility]PITALStart: 09-14-2024 End: 73-67-6970Ykpwxqpbj beverage intakeEx-drinker (finding)[facility] Start: 78-90-1357Ikbzffp Commentuse patches dailyNOMS HealthcareStart: 70-43-1194Wxzpuve CommentSociallyNOMS HealthcareTobacco smoking status NHIS Unknown if ever smokedWilson Health Work Phone: Start: 11-23-2012 End: 38-18-4706AlrFvsriv (finding)[facility] SystemHa the electric, gas, oil, or water company threatened to shut off services in your home in past 12MoNoBon [employer](I/We) worried whether (my/our) food would run out before (I/we) got money to buy more.Never trueWickenburg Regional Hospital [employer] Clinical Notes 03-11-2021 to 08-17-2025 Note Date & IiimPyqyCwqtbgov40-38-2174 [facility] Up Patient Visit - History & Physical CHIEF COMPLAINT Chief Complaint Patient presents with Follow-up Gastric Emptying Study done in the media HISTORY OF PRESENT ILLNESS: Quyen Lewis is a 35 y.o. female w/ pmh [...] bowel bx for celiac disease. Admitted to [facility] on 02/13/25 for severe pain/vomiting, CT completed (no records available) dx w/ an appendicitis treated with antbiotics. 02/13/25: AST 55/ALT 80; lipase WNL. [place] better for two weeks and then symptoms returned feirce. Two weeks later presented to [place] ER dx w/ Mesenteric Adenitis, repeat CT [...] all food causes pain. Has some LLQ pain that remains constant and worse bloating. Has intermittent generalized abdominal spasms - especially r/t to BMs and when resting. None of these pains are improved with BMs. Issues w/ severe urgency of diarrhea, and passing undigested foods within a hour or a so after eating them. BMs occur at least 5 x per day, always loose to watery, [...] use. 09/2024 ALT 51, AST 38; 11/06 ALT [...] severe distress, describing spasms as ???wringing her belly.??? Some relief is achieved (more content not included)...[facility]10-07-2025 NoteHNO ID: [id number] Author: ELADIA RESENDEZ II, OD Service: ? Author Type: Toll Lineman Type: Progress Notes Filed: 07/20/2025 14:33 Note Text: Assessment and Plan H40.053 Ocular hypertension, bilateral (primary encounter diagnosis) Comment: Normal today. Continue observation at annual Dilated fundus exam in January 2026 H10.13 Allergic conjunctivitis of both eyes Comment: Continue Optivar 1 gt both eyes twice a day as needed for relief of symptoms. I have confirmed and edited as necessary [...] and agree with all of its relevant components.[facility]09-29-2025 History of Present illness Narrative* Michele Peterson DO - 07/12/2025 1:45 PM [...] her back as needed documented in this encounterSaint [facility] Hospital & Health ServicesMkffucgqaw67-48-2685 [facility] Follow Up Patient Visit - History & Physical CHIEF COMPLAINT Chief Complaint Patient presents with Follow-up Nausea Anemia HISTORY OF PRESENT ILLNESS: Quyen Lewis is a 35 y.o. female w/ pmh [...] bowel bx for celiac disease. Admitted to [facility] on 02/13/25 for severe pain/vomiting, CT completed (no records available) dx w/ an appendicitis treated with antbiotics. 02/13/25: AST 55/ALT 80; lipase WNL. [place] better for two weeks and then symptoms returned feirce. Two weeks later presented to [place] ER dx w/ Mesenteric Adenitis, repeat CT [...] all food causes pain. Has some LLQ pain that remains constant and worse bloating. Has intermittent generalized abdominal spasms - especially r/t to BMs and when resting. None of these pains are improved with BMs. Issues w/ severe urgency of diarrhea, and passing undigested foods within a hour or a so after eating them. BMs occur at least 5 x per day, always loose to watery, [...] use. 09/2024 ALT 51, AST 38; 11/06 ALT [...] severe distress, describing spasms as ???wringing her belly.??? Some relief is achieved with Bentyl and Levsin (more content not included)...[facility]08-26-2025 History of Present illness Narrative* Michele Peterson DO - 06/08/2025 9:15 AM EDT HPI Patient presents today 1 week postop right hemithyroidectomy. Final pathology is benign, noted to be severe chronic lymphocytic thyroiditis. She is doing fine. Relevant postoperative physical examination Neck incision intact, no evidence of hematoma or seroma, voice is normal. Assessment/plan Quyen was seen today for post-op. Diagnoses and all orders for this visit: Status post partial thyroidectomy Comments: Patient given postoperative instructions, I will see her back in 1 month with lab work. Orders: - T4; Future - T3; Future - TSH; Future - T4 - T3 - TSH documented in this encounterSaint Francis Hospital & Health ServicesSpmnckjbpw69-79-9455 History of Present illness Narrative* Michele Peterson DO - 05/24/2025 2:00 PM EDT Allergies as of 05/24/2025 - Reviewed 05/24/2025 Allergen Reaction Noted Latex Anaphylaxis, Rash, Shortness of breath, and Swelling 07/01/2014 Diltiazem 03/29/2020 Beta adrenergic blockers Rash 03/19/2019 Ondansetron Headache and Other 11/16/2017 Past Medical History: Diagnosis Date Acute abdominal pain 02/14/2025 Adverse effect of anesthesia Unable to urinate Anemia Anxiety Autoimmune thyroiditis Cluster headache Colitis Diabetes mellitus (HCC) Dietary counseling and surveillance Endometriosis GERD (gastroesophageal reflux disease) Christie's disease Headache, tension-type Hirsutism Hypertension Insomnia Liver disease Migraines Obesity with body mass index (BMI) of 30.0 to 39.9 PCOS (polycystic ovarian syndrome) PONV (postoperative nausea and vomiting) Thyroid nodule 2023 Verruca Vitamin D deficiency Current Outpatient Medications: amLODIPine (Norvasc) 5 MG tablet, , Disp: , Rfl: azelastine (Optivar) 0.05 % ophthalmic solution, Administer 1 drop into affected eye(s) in the morning and 1 drop in the evening., Disp: , Rfl: Bisacodyl EC 5 MG EC tablet, , Disp: , Rfl: cholecalciferol (Vitamin D-3) 50 MCG (2000 UT) capsule, Take 1 capsule by mouth Daily, Disp: , Rfl: fluticasone (Flonase) 50 MCG/ACT nasal spray, Administer 1 spray into each nostril Daily, Disp: , Rfl: levothyroxine (Synthroid, Levoxyl) 137 MCG tablet, Take 137 mcg by mouth at bedtime, Disp: 90 tablet, Rfl: 3 Loratadine 10 MG capsule, Take 1 capsule by mouth Daily, Disp: , Rfl: magnesium oxide (Mag-Ox) 400 mg tablet, Take 1 tablet by mouth in the morning and 1 tablet before bedtime., Disp: , Rfl: magnesium oxide (Mag-Ox) 400 MG tablet, , Disp: , Rfl: metFORMIN XR (Glucophage-XR) 500 MG 24 hr tablet, , Disp: , Rfl: nicotine (Nicoderm, Step 2) 14 MG/24HR patch, Place 1 patch on the skin, Disp: , Rfl: omeprazole (PriLOSEC) [address] capsule, Take 1 capsule by mouth Daily, Disp: , Rfl: oxaprozin (Daypro) 600 MG tablet, , Disp: , Rfl: Ygechj-UlOvl-Ikgxl-Ca-Nallen 3 ( + Complete Multi) 18-0.8 & 290 MG therapy, , Disp: , Rfl: QUEtiapine (SEROquel) 50 MG tablet, , Disp: , Rfl: venlafaxine XR (Effexor XR) 150 MG 24 hr tablet, , Disp: , Rfl: Vistaril 25 MG capsule, , Disp: , Rfl: Past Surgical History: Procedure Laterality Date ANKLE FRACTURE SURGERY Left CHOLECYSTECTOMY DILATION AND CURETTAGE OF UTERUS x 2 FRACTURE SURGERY Left 3 pins OVARIAN CYST REMOVAL Left SALPINGECTOMY Left SHOULDER ARTHROSCOPY Right Social History Socioeconomic History Marital status: Domestic Partner Spouse name: Not on file Number of children: Not on file Years of education: Not on file Highest education level: Not on file Occupational History Not on file Tobacco Use Smoking status: Former Current packs/day: 0.25 Average packs/day: 0.3 packs/day for 10.0 years (2.5 ttl pk-yrs) Types: Cigarettes Smokeless tobacco: Never Tobacco comments: use patches daily Substance and Sexual Activity Alcohol use: Not Currently Comment: Socially Drug use: Never Sexual activity: Yes Partners: Male control/protection: None Other Topics Concern Not on file Social History Narrative Not on file Social Drivers of Health Financial Resource Strain: Not on file Food Insecurity: No Food Insecurity (02/14/2025) Received from [facility] Hunger Vital Sign Worried About Running Out of Food in the Last Year: Never true Ran Out of Food in the Last Year: Never true Transportation Needs: No Transportation Needs (02/14/2025) Received from [facility] PRAPARE - Transportation Lack of Transportation (Medical): No Lack of Transportation (Non-Medical): No Physical Activity: Not on file Stress: Not on file Social Connections: Not on file Intimate Partner Violence: Not At Risk (04/06/2025) Received from [facility] Humiliation, Afraid, Rape, and Kick questionnaire Fear of Current or Ex-Partner: No Emotionally Abused: No Physically Abused: No Sexually Abused: No Housing Stability: Low Risk (02/14/2025) Received from [facility] Housing Stability Vital Sign Unable to Pay for Housing in the Last Year: No Number of Times Moved in the Last Year: 0 Homeless in the Last Year: No Subjective Patient ID: HPI Patient presents today for six-month follow-up of right-sided thyroid nodule. I had done an FNA, this came back as [place] III then a firmer showed less than 3 percent chance of malignancy. The lesion itself was about 3 cm. Patient does have some moderate globus sensation secondary to this. Review of Systems ROS The specialty specific [...] normal Nares patent. Septal deviation to the right No evidence of polyp, mass or pus [...] of normal size and configuration Oropharynx: Tonsils atrophic Posterior pharyngeal wall normal Neck: No evidence [...] right lobe of the thyroid gland measures _ 4.9 cm in greatest dimension. Inferiorly based hypoechoic nodule with some peripheral vascularity but no calcification now measuring 3.1 cm in greatest dimension. The isthmus is unremarkable. The left lobe of the thyroid gland measures __ 2.6 cm greatest dimension. Nodular mass, the parenchyma is spongiform. There is no adenopathy in the central compartment. There is no appreciable adenopathy in either lateral neck. FIBEROPTIC NASOPHARYNGOLARYNGOSCOPY A diagnostic flexible fiberoptic laryngoscopy was performed. The flexible fiberoptic laryngoscope was placed into the nose and advanced to the level of the tip of the epiglottis. Examination of the larynx including both surfaces of the epiglottis false and true vocal folds, arytenoids and surrounding mucosal surfaces show no evidence of lesion, ulceration or mass. Normal bilateral true vocal foldmotion is present. Bilateral piriform sinuses and base of tongue appear without lesion Assessment/Plan Quyen was seen today for thyroid nodule. Diagnoses and all orders for this visit: Thyroid nodule Comments: I had a discussion with the patient about the nodule. She is symptomatic and I think eventually this will probably need to be removed Orders: - T4; Future - T3; Future - TSH; Future - PTH, intact; Future - Calcium; Future - T4 - T3 - TSH - PTH, intact - Calcium She would like to proceed with a right hemithyroidectomy. I agree. The risks and benefits of thyroidectomy were discussed with the patient. These include but are not inclusive of perioperative , infection, major neurovascular injury, recurrent laryngeal nerve injury/dysfx, hoarsness, permanent vocal cord paralysis, permanent hyoparathyroidism, poor scaring, sw allowing and/or voice difficulties, etc. The patient has consented to proceed. documented in this encounterSaint Francis Hospital & Health S[id number] [facility] Follow Up Patient Visit - History & Physical CHIEF COMPLAINT Chief Complaint Patient presents with Follow-up Abdominal Pain HISTORY OF PRESENT ILLNESS: Quyen Lewis is [...] bowel bx for celiac disease. Admitted to [facility] on 02/13/25 for severe pain/vomiting, CT completed (no records available) dx w/ an appendicitis treated with antbiotics. 02/13/25: AST 55/ALT 80; lipase WNL. [place] better for two weeks and then symptoms returned feirce. Two weeks later presented to [place] ER dx w/ Mesenteric Adenitis, repeat CT [...] all food causes pain. Has some LLQ pain that remains constant and worse bloating. Has intermittent generalized abdominal spasms - especially r/t to BMs and when resting. None of these pains are improved with BMs. Issues w/ severe urgency of diarrhea, and passing undigested foods within a hour or a so after eating them. BMs occur at least 5 x per day, always loose to watery, [...] use. 09/2024 ALT 51, AST 38; 11/06 ALT 63, AST 48; 09/2022: ALT 62, AST 51. PREVIOUS LABS/IMAGING/ENDOSCOPY: Esophagogastroduodenoscopy (EGD) Procedure Note 02/11/25: Procedure: EGD [...] Esophagus: Normal mucosa. No evidence of esophagitis, (more content not included)...[facility]05-04-2025 History of Present illness Narrative* Lucrecia Medley RN - 02/14/2025 4:59 PM EDT Explained discharge instructions to patient at this time. No changes to medications. States she will call PCP for follow up. Verbalized understanding to come back to ER if abdominal pain worsens and follow up with providers for GI. Education provided on abdominal pain and potassium rich diet. Pt verbalized understanding of all instructions. Will be leaving hospital ambulatory with family. * Lucrecia Medley RN - 02/14/2025 4:[address] Castillo of repeat K+ level and patient status. Discharge order placed by Dr Castillo. * Lucrecia Medley RN - 02/14/2025 1:50 PM EDT Pt tolerated clear liquid diet, ok to upgrade to full liquid per Dr Castillo. * Lucrecia Medley RN - 02/14/2025 12:[address] Brock at bedside. * Lucrecia Medley RN - 02/14/2025 8:41 AM EDT IV potasium replacement initiated, placed on telemetry for precaution, explained POC to patient andshe verbalized understanding. * Lucrecia Medley RN - 02/14/2025 7:08 AM EDT Vitals and assessment completed at this time as charted. Pt resting in bed, reports nausea and indigestion, RN helped patient sit up HOB for relief. Will medicate with morphine for abdominal pain andcompazine for nausea. Pt up to bathroom now. Has no had diarrhea. Informed patient on POC for today. Fall precautions in place. * Brook Santiago RN - 02/14/2025 3:02 AM EDT Creel Clerkgordon jackman served Dr. Castillo that patient was requesting something for nausea other than zofran d/t it giving patient migraines. New orders received. * Brook Santiago RN - 02/14/2025 1:55 AM EDT Patient arrived to room from ED, proposal lead writer received report from ED Nurse. Patient arrives to room A/O x4. Patient ambulated to bed and tolerated well. Admission navigator completed and medications reviewed with patient. Vital signs as charted. Patient rates pain 6/10 and proposal lead writer gave pain medications. Patient denies any other needs at this time. Patient resting comfortably. Gripper socks on, Bed locked, call light within reach. documented in this encounterBon [facility] course Narrative* Mumtaz Castillo MD - 02/14/2025 4:36 PM EDT Mumtaz Castillo M.D. Internal Medicine Discharge Summary Patient ID: Quyen Lewis [id number] Admission date: 02/13/2025 Discharge date: 02/14/2025 Admitting Physician: Mumtaz Castillo MD Primary Care Physician: Michael Salazar MD Primary Discharge Diagnoses: Principal Problem: [...] EGD and colonoscopy on 02/11/25 at [facility] with biopsies taken. Along with her pain she c/o nausea and vomiting but denies hematemesis. She denies fevers but has been having chills. She also has been having watery diarrhea since her bowel prep 02/10. She has chronic diarrhea for several years and states her BM's are veryirregular and always watery. She has not been tolerating PO very well due to her symptoms and has noted decrease urine output over the past couple of days, but denies dysuria, urgency or hematuria. She has been taking Levsin as needed, but does not take frequently because it causes her to be tired.Has tried bentyl in the past w/o significant [...] has f/u scheduled with her GI and wasencouraged to keep this appt. She was deemed [...] 80* -- -- \Lactic Acid: Recent Labs 02/13/25 2140 LACTA 1.2 Imaging Data: CT CHEST ABDOMEN [...] RLQ since procedure, NV TECHNOLOGIST PROVIDED HISTORY: recentendoscopy and colonoscopy, RUQ, epigastric and RLQ since procedure, NV Decision Support Exception -unselect if not a suspected or confirmed emergency medical condition- >Emergency Medical Condition (MA) FINDINGS: Chest: Chest Wall [...] There is a 2.1 cm right thyroid nodule.See recommendations for follow-up below. 5. The endometrium measures 1.6 cm in thickness, which is upper limits of normal for premenopausal patient. Suspected fibroid of the posterior inferior uterine segment. Consider pelvic ultrasound on a nonemergent basis. RECOMMENDATIONS: Incidental right thyroid nodule measuring 2.1 cm. Recommend non-emergent thyroid ultrasound. Reference: J Am Speedy Radiol.2014;12(2): 143-50 Left sub-cm adrenal mass, probably benign. No follow-up imaging is recommended. JACR 2016; 14(8):1038- 44, JCAT 2015-Jan; 40(2):194-200, Urol J spring; 3(2):71-4. Diagnostic Colonoscopy [...] drug reaction and aspiration were discussed. The patientwas placed in the left lateral decubitus position. [...] mucosa throughout. No evidence of polyps, masses, inflammation,diverticula, or vascular abnormalities. Terminal Ileum: Successfully intubated. [...] withdrawn, including a retroflexed view of the proximalstomach; findings and interventions are described below. Appropriate [...] - TISSUE EXAM Mich Macedo MD 02/11/2025 6829 Complications: None Estimated blood loss: Minimal Condition: [...] Wound Care: none needed Follow up with Michael Salazar MD in 1-2 weeks Follow-up with GI in 1-2 weeks as directed CORE MEASURES on Discharge (if applicable) ABEBA/ARB in CHF: N/A ASA in CO: N/A Statin in CO: N/A Statin in CVA: N/A Antiplatelet in CVA: N/A Total time spent on discharge services: 40 minutes Including the following activities: Evaluation and Management of patient Discussion with patient and/or surrogate about current care plan Coordination with Case Management and/or Assistant Engineer Coordination of care with Consultants (if applicable) Coordination of care with Receiving Facility Physician (if applicable) Completion of DME forms (if applicable) Preparation of Discharge Summary Preparation of Medication Reconciliation Preparation of Discharge Prescriptions Signed: Mumtaz Castillo MD, M.D. 02/14/2025 4:36 PM documented in this encounterBon [facility] NotePatient: Quyen Lewis Procedure Summary Date: 02/11/25 Room / Location: [facility] Anesthesia Start: 1334 Anesthesia Stop: 1422 Procedures: [...] PACU per anesthesia protocol. No notable events documented.[facility]05-01-2025 Note Patient: Quyen Lewis Procedure Summary Date: 02/11/25 Room / Location: [facility] Anesthesia Start: 4 Anesthesia Stop: Procedures: EGD DIAGNOSTIC COLONOSCOPY Diagnosis: Iron deficiency anemia, unspecified iron deficiency anemia type Chronic diarrhea Chronic abdominal pain Chronic iron deficiency anemia Scheduled Providers: Mich Macedo MD; Nito Granados MD; Jake Lane CRNA Responsible Provider: Nito Granados MD Anesthesia Type: MAC ASA Status: 2 Anesthesia Post Transport [facility]: face mask Oxygen Flow (L/min): 8 Patient Monitor: direct observation Transport: uneventful Patient condition is: [facility] Patient: Quyen Lewis Procedure Information Date/Time: 02/11/25 1230 Scheduled providers: Mich Macedo MD; Nito Granados MD; Jake Lane CRNA Procedures: EGD DIAGNOSTIC COLONOSCOPY Location: [facility] Invasive Surgery [place] Relevant Problems Anesthesia (within normal limits) Cardio [...] patient. Plan discussed with CAA. [facility] Note [facility] Gastroenterology New Patient Visit - History & Physical [...] IGA B12/Folate/Iron studies: No results found for: MGGGFGLB16 , FOLATE , IRON , TIBC , [...] for: MOISÉS , SMOOTHMUSCAB , CERULOPLSM , Z4AWBZDOMDG , TTGA , IGA , TSH , FREET4 , AFP No results found for: TSH , D5SPBIU , J6IHEHT , THYROIDAB Pancreatitis No results found for: [...] capsule, Take 1 cap (more content not included)...[facility]03-31-2025 NoteDate of Procedure 01/11/2025. Frame [employer]ver [employer] Information Summer Sessions Director: boris. Start time: 3:10 PM. Stop time: 3:19 PM. Reliability Right Eye Borderline. Left Eye Good. Interpretation Right Eye Non-specific defect. Left Eye Normal. Interval Change Right Eye Initial. Left Eye Initial. Notes [id number] NoteDate of Procedure 01/11/2025. Frame [employer] Information Summer Sessions Director: boris. Start time: 3:19 PM. Stop time: 3:21 PM. Quality Right Eye Good. Left Eye Good. NFL Interpretation Right Eye Normal. Left Eye Normal. Ganglion Cell Layer Thickness Right Eye Temporal loss. Left Eye Temporal loss. Interval Change Right Eye Initial. Left Eye Initial. Notes [id number] NoteDate of Procedure 01/11/2025. Frame [employer] Information Summer Sessions Director: boris. Start time: 3:21 PM. C/D Ratio Right Eye 0.45. Left Eye 0.55. Disc Right Eye Cupping. Left Eye Cupping. Macula Right Eye Normal. Left Eye Normal. Periphery Right Eye Normal. Left Eye Normal. Notes [id number] Instructions* Patient Instructions* Eladia Resendez II, OD - 01/11/2025 3:09 PM [...] and plan as stated above and agree withall of its relevant components. documented in this encounter[facility]-31-2025 NoteHNO ID: [id number] Author: ELADIA RESENDEZ II, OD Service: ? Author Type: CARPENTER FOREMAN Type: Progress Notes Filed: 01/11/2025 16:00 Note [...] and agree with all of its relevant components.[facility]03-31-2025 History of Present illness Narrative* Eladia Resendez II, OD - 01/11/2025 3:07 PM EDT Assessment and Plan H40.053 Ocular [...] and plan as stated above and agree withall of its relevant components. documented in this encounterMer[facility]03-19-2025 NoteHNO ID: [id number] Author: KIRSTY MARTINEZ OD Service: ? Author Type: CARPENTER FOREMAN Type: Progress Notes Filed: 12/30/2024 15:56 Note [...] vision, otherwise follow up 2 weeks in [place] to check refraction, intraocular pressure, and possible baseline glaucoma testing if needed. Kirsty Martinez, OD December 30, 2024 3:54 [facility]03-19-2025 History of Present illness Narrative* Meshaflorin Kirsty, OD - 12/30/2024 3:52 PM EDT ASSESSMENT/PLAN: 1. Conjunctival edema, bilateral - ICD9: [...] vision, otherwise follow up 2 weeks in [place] to check refraction, intraocular pressure, and possible baseline glaucoma testing if needed. Kirsty Martinez, KRISTIN December 30, 2024 3:54 PM documented in this [facility]03-19-2025 Instructions* Patient Instructions* Kirsty Martinez, OD - 12/30/2024 3:36 PM [...] symptoms, otherwise monitor yearly. documented in this encounterMer[facility]03-12-2025 NoteHNO ID: [id number] Author: KIRSTY MARTINEZ OD Service: ? Author Type: CARPENTER FOREMAN Type: Progress Notes Filed: 12/23/2024 16:08 Note [...] Kirsty Martinez OD December 23, 2024 4:07 [facility]03-12-2025 History of Present illness Narrative* Kirsty Martinez, KRISTIN - 12/23/2024 4:06 PM EDT ASSESSMENT/PLAN: 1. Conjunctival edema, bilateral - ICD9: [...] 1 week with red eye check and dilatedfundus exam. Kirsty Martinez OD December 23, 2024 4:07 PM documented in this encounterMer[facility]03-12-2025 Instructions* Patient Instructions* Kirsty Martinez, OD - 12/23/2024 3:57 PM [...] otherwise monitor as needed. documented in this encounterMer[facility]03-07-2025 NoteHNO ID: [id number] Author: KIRSTY MARTINEZ OD Service: ? Author Type: CARPENTER FOREMAN Type: Progress Notes Filed: 12/18/2024 09:22 Note [...] with all of its relevant components. Kirsty Martinez, KRISTIN December 18, 2024 9:22 [facility]03-07-2025 History of Present illness Narrative* Kirsty Martinez, OD - 12/18/2024 8:54 AM EST ASSESSMENT/PLAN: 1. Conjunctival edema, bilateral - ICD9: [...] others. I have seen and examined Quyen Leiws. I have discussed the case and the management of this patient's care with the Resident/Fellow, if applicable. I also have reviewed and agree with the assessment and plan as stated above and agree withall of its relevant components. Kirsty Martinez OD December 18, 2024 9:22 AM documented in this encounterMer[facility]02-11-2025 History of Present illness Narrative* Michele Peterson DO - 11/24/2024 10:45 AM EST HPI Patient presents today following FNA of a right thyroid nodule. This initially was [place] III, benign. Afirma testing however shows that [...] may discuss a lobectomy. documented in this encounterSaint Francis Hospital & Health [id number] History of Present illness Narrative* Michele Peterson DO - 11/10/2024 8:00 AM EST Subjective Patient ID: HPI Presents today for FNA of a right [...] weeks to discuss pathology documented in this encounterSaint Francis Hospital & Health [id number] History of Present illness Narrative* Michele Peterson, DO - 10/27/2024 9:30 AM EST Subjective Patient ID: HPI Patient is a 34-year-old female referred for right-sided thyroid nodule. 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 She recently underwent a thyroid ultrasoundrevealing a 2.7 cm nodule in the right [...] orders for this visit: Thyroid nodule (CMS/HCC) Comments: The right-sided nodule should be biopsied to rule out malignancy. Orders: - Ambulatory referral to ENT We will get that approved by insurance and performed the procedure in the office in the near future. documented in this encounterSaint Francis Hospital & Health [id number] History of Present illness Narrative* Aletha Fiore RN - 03/11/2021 11:09 AM EDT Ice pack provided for pain to right lower face documented in this encounterCleveland Clinic [facility] GeneralSancilio and Company Phone: [phone] 822-465605-29-2021 Hospital Discharge instructions* Instructions* Cassidy Alvarez MD - 03/11/2021 Please add Tylenol to Toradol as needed. Apply topical lidocaine every 2-3 hours but do not swallowresidual. * Attachments The following attachments cannot be sent through Care Everywhere. * Tooth Decay (Sudanese) documented in this encounterStylect Phone: evaltwgqjv note* Diagnosis Pain due to dental caries- Primary documented in this encounter [employer] Phone: evaluation note* Diagnosis Irregular menses Irregular menstrual cycle documented in this encounter [employer] Phone: evalbpvxsg note* Diagnosis Endometriosis determined by laparoscopy Pelvic pain Endometrial thickening on ultrasound Irregular menses Irregular menstrual cycle Essential hypertension, benign Pre-op testing Preoperative examination, unspecified documented in this encounter [employer] Phone: evaleyjytz note* Diagnosis Preop testing- Primary Preoperative examination, unspecified documented in this encounter [employer] Phone: evalmixstv note* Diagnosis Elevated LFTs Other abnormal blood chemistry RUQ pain Abdominal pain, right upper quadrant documented in this encounter [employer] Phone: evaluation note* Diagnosis 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 documented in this encounter [employer] Phone: evalqahvlt note* Diagnosis 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 documented in this encounter [employer] Phone: evaluation note* Diagnosis Cat bite, initial encounter- Primary documented in this encounter [employer] Phone: evaluation note* Diagnosis Lump at site of vaccination documented in this encounter [employer] Phone: evalletanw note* Diagnosis Women's annual routine gynecological examination documented in this encounter [employer] Phone: evalqzzxyo note* Diagnosis RUQ pain Abdominal pain, right upper quadrant documented in this encounter [employer] Phone: evalyrfxtk note* Diagnosis Low testosterone level in female Unspecified endocrine disorder documented in this encounter [employer] note* Diagnosis Chronic lymphocytic thyroiditis documented in this encounter [employer] note* Diagnosis Thyroid nodule (CMS/HCC) Nontoxic uninodular goiter [facility]* Diagnosis Irregular bowel habits- Primary Family hx of colon cancer Family history of malignant neoplasm of gastrointestinal tract documented [facility]* Diagnosis Labial skin tag Other specified noninflammatory disorder of vulva and perineum documented in this encounter [employer] note* Diagnosis Thyroid nodule (CMS/HCC)- Primary Nontoxic uninodular goiter documented in this encounter [facility] HealthcareEvaluation noteNo assessment information availableWilson Health Work Phone: Evaluation note* Diagnosis Conjunctival edema, bilateral- Primary documented in this encounter [facility] [place] [facility]* Diagnosis Conjunctival edema, bilateral- Primary documented in this encounter [facility]* Diagnosis Conjunctival edema, bilateral- Primary Dry eye syndrome of bilateral lacrimal glands Tear film insufficiency, unspecified Ocular hypertension, bilateral Borderline glaucoma with ocular hypertension documented in this encounter [facility] [place] [facility]* Diagnosis Ocular hypertension, bilateral- Primary Borderline glaucoma with ocular hypertension Allergic conjunctivitis of both eyes Other chronic allergic conjunctivitis Myopia, bilateral Myopia documented in this encounter [facility] [place] [facility]* Diagnosis Acute abdominal pain- Primary Abdominal [...] right lower quadrant documented [facility] encounter [facility] [place] [facility]* Diagnosis Thyroid nodule Nontoxic uninodular goiter documented [facility]* Diagnosis Status post partial thyroidectomy Other postprocedural status documented in this [facility]* Diagnosis Nausea Nausea alone Loss of weight Chronic abdominal pain Abdominal pain, unspecified site documented in this encounter [facility] [place] [facility]* Diagnosis Status post partial thyroidectomy- Primary Other postprocedural status documented [facility] HealthcareHistory of Present illness Narrative* Sherita Jurado, - 10/27/2024 11:00 AM EST General Surgery [...] for endometriosis. 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 She is interested in seeing a technology integration specialist other then her previous provider in [place]. We discussed that she could have a [...] capsule, Daily oxaprozin (Daypro) 600 MG tablet Wzsoba-AyIrq-Lvoxn-Ca-Nallen 3 ( + Complete Multi) 18-0.8 & [...] Depression: Not at risk (09/30/2023) [facility] PHQ-2 PHQ-9 Total Score: 0 Physical [...] and or inflammatory bowel disease. Thank you, Herbie Jurado DO documented in this encounterExcelsior Springs Medical Centerspital Discharge instructions* Attachments The following attachments cannot be sent through Care Everywhere. * Bites: Animal (Sudanese) documented in [facility] encounterCARIL[facility] Work Phone: Hospital Discharge instructions* Attachments The following attachments cannot be sent through Care Everywhere. * Abdominal Pain (Sudanese) * Potassium-Rich Diet (Sudanese) documented in [facility] encounterSent[facility] (narrative)No reason for referral information availableWilson Health Work Phone: [facility] Narrative* Imaging (Routine) - Open SpecialtyDiagnoses / ProceduresReferred By ContactReferred To ContactRadiology Diagnoses Nausea Loss of weight Chronic abdominal pain Procedures NM GASTRIC EMPTYING Steffi Bermudez, SENIOR INTERACTIVE PRODUCER - [address] [place] [address] Phone: tel: fax: Referral IDStatusNaziaasonStart DateExpiration DateVisits RequestedVisits [id number]/ [facility] Narrative* Imaging (Routine) - Open SpecialtyDiagnoses / ProceduresReferred By ContactReferred To ContactRadiology Diagnoses Nausea Loss of weight Chronic abdominal pain Procedures NM GASTRIC EMPTYING Steffi Bermudez, SENIOR INTERACTIVE PRODUCER - [address] [place] [address] Phone: tel: fax: Referral IDStatusNaziaasonStart DateExpiration DateVisits RequestedVisits [id number]// [facility] Advance Directives No Advanced Directives Records Found Date ActivatedDate InactivatedComments02/14/2025 1:55 AM02/14/2025 7:04 PMDate ActivatedDate LoqflwcniwmHzocrcga61/1/2021 9:57 AM07/14/2021 2:19 PMDate ActivatedDate JvgutscgwbjUtpzmunx65/20/2020 7:25 AM09/02/2020 2:12 PMDate ActivatedDate EqpuudgitifIwxqozqc58/8/2018 9:23 AM07/21/2018 3:54 PMTypeDate RecordedPatient RepresentativeExplanationAdvance Directives and Living WillPower of AttorneyCode StatusDate ActivatedDate InactivatedCommentsFull Code07/21/2018 9:23 AM07/21/2018 3:54 PMTypeDate RecordedPatient RepresentativeExplanation Advance Directives and Living WillPower of AttorneyCode StatusDate ActivatedDate InactivatedCommentsFull Code07/21/2018 9:23 AM07/21/2018 3:54 PMTypeDate Recorded Patient RepresentativeExplanationACP-Advance DirectiveACP-Power of AttorneyType Date RecordedPatient RepresentativeExplanationACP-Advance DirectiveACP-Power of AttorneyCode StatusDate ActivatedDate InactivatedCommentsFull Code09/02/2020 7:25 AMFull Code07/21/2018 9:23 AM07/21/2018 3:54 PMCode StatusDate ActivatedDate InactivatedCommentsFull Code09/02/2020 7:25 AM09/02/2020 2:12 PMFull Code 07/21/2018 9:23 AM07/21/2018 3:54 PMCode StatusDate ActivatedDate Inactivated CommentsFull Code07/14/2021 9:57 AM07/14/2021 2:19 PMFull Code09/02/2020 7:25 AM 09/02/2020 2:12 PMCode StatusDate ActivatedDate InactivatedCommentsFull Code 07/14/2021 9:57 AM07/14/2021 2:19 PMFull Code09/02/2020 7:25 AM09/02/2020 2:12 PM Code StatusDate ActivatedDate InactivatedCommentsFull Code07/14/2021 9:57 AM 07/14/2021 2:19 PMCode StatusDate ActivatedDate InactivatedCommentsFull Code 09/02/2020 7:25 AM09/02/2020 2:12 PMFull Code07/21/2018 9:23 AM07/21/2018 3:54 PM Date ActivatedDate RmlkmjnlykrJkhtjjlb68/1/2021 9:57 AM07/14/2021 2:19 PMDate ActivatedDate FiuzuigmrvcVklniktw95/20/2020 7:25 AM09/02/2020 2:12 PMDate ActivatedDate GebuofdsreuJnzbufgt32/8/2018 9:23 AM07/21/2018 3:54 PMDate ActivatedDate OvuixoiggcqJvqbobzi16/1/2021 9:57 AM07/14/2021 2:19 PMDate ActivatedDate LstqgzqubenIyvgnbsi91/20/2020 7:25 AM09/02/2020 2:12 PMDate ActivatedDate HhypjrgdrorVizfbnfc67/8/2018 9:23 AM07/21/2018 3:54 PMDate ActivatedDate InactivatedComments02/14/2025 1:55 AM Advance Directive Response Recorded Date/ Time Advance Directives No November 11, 2024 7:13am Date ActivatedDate InactivatedComments02/14/2025 1:55 AM02/14/2025 7:04 PMDate ActivatedDate HllacihsqvdRergfhck22/1/2021 9:57 AM07/14/2021 2:19 PMDate ActivatedDate ItzkecjnbwaQdsyossj36/20/2020 7:25 AM09/02/2020 2:12 PMDate ActivatedDate KanyasskwvcFirranwz21/8/2018 9:23 AM07/21/2018 3:54 PM Summary Purpose Family History No Family History Records FoundNo Family History Records FoundNo Family History Records FoundNo Family History Records FoundNo Family History Records FoundNo Family History Records FoundNo Family History Records FoundNo Family History Records Found Reason for Referral StatusReasonSpecialtyDiagnoses / ProceduresReferred By ContactReferred To ContactClosedRadiology Diagnoses Infertility, female Procedures US Non OB Transvaginal Jesica Cantor, SENIOR INTERACTIVE PRODUCER - CNM [address] [place] [address] SpecialtyDiagnoses / ProceduresReferred By ContactReferred To ContactRadiology Diagnoses Elevated LFTs RUQ pain Procedures US ABDOMEN LIMITED Michael Salazar MD [address] [place] [address] Referral IDStatusReasonStart DateExpiration DateVisits RequestedVisits [id number]/22/20222/626719AzmwvyskmGjdshoiqc / Procedures Referred By ContactReferred To ContactRadiology Diagnoses Infertility associated with anovulation Procedures US Non OB Transvaginal Lizbet Calderon, DO [address] [place] [address] Referral IDStatusReasonStart DateExpiration DateVisits RequestedVisits [id number]/24/20225/746877RyqycnqxuBjjhmfoem / Procedures Referred By ContactReferred To ContactRadiology Diagnoses RUQ pain Procedures US ABDOMEN LIMITED Michael Salazar MD [address] [place] [address] Referral IDStatusReasonStart DateExpiration DateVisits RequestedVisits [id number]/23/202212/690812HojmpbkpaUotgorepp / Procedures Referred By ContactReferred To ContactRadiology Diagnoses Chronic lymphocytic thyroiditis Procedures US THYROID Stalin Clarke MD [address] [facility] [address] [place] [address] Referral IDStatusReasonStart DateExpiration DateVisits RequestedVisits [id number]/31/202410/ Assessments Diagnosis Infertility, female Female infertility of unspecified origin Diagnosis Anovulation Female infertility associated with anovulation Diagnosis Cyst of ovary, unspecified laterality Non-intractable vomiting with nausea, unspecified vomiting type Diagnosis Endometrial thickening on ultrasound Diagnosis Christie's disease Chronic lymphocytic thyroiditis Discharge Instructions * Attachments The following attachments cannot be sent through Care Everywhere. * Ovarian Cyst: Hemorrhagic (Sudanese) * Nausea and Vomiting (Sudanese) documented in this encounter* Instructions* Felicity Mazariegos [...] call if excessive. Call the office at [phone] ([place]) [phone] ([place]) for an appointment in 2 weeks. documented [...] prior to arriving the day of surgery. Asha Peña RN - 08/24/2020 9:53 AM EST Attempted PAT phone call; no answer; message left to return PAT phone call. Asha Peña RN - 08/23/2020 10:12 AM EST Attempted PAT phone call; no answer; message left to return PAT phone call. * Asha Wolf RN - 08/22/2020 10:50 AM EST Attempted PAT phone call; no answer; message left to return PAT phone call. documented in this encounter Chief Complaint and Reason for Visit Chief Complaint Admit Date Thyroid Nodule June 01, 2025 1: 00pm e04.1 July 12, 2025 9:18am Additional Source Comments Reason for Visit (unrecogniz ed section and content) StatusReasonSpecialtyDiagnoses / ProceduresReferred By ContactReferred To ContactClosedEchocardiography Diagnoses Dyspnea, unspecified Procedures HC 2D ECHO WITHOUT CONTRAST - WITH DOP/COLOR FLOW Michael Salazar MD [address] [place] [address] [facility] [address] [place] [address] StatusReasonSpecialtyDiagnoses / ProceduresReferred By ContactReferred To ContactClosedRadiology Diagnoses Infertility, female Procedures US Non OB Transvaginal Jesica Cantor, SENIOR INTERACTIVE PRODUCER - CNM [address] [place] [address] ReasonCommentsEmesisPt has been vomiting since last night; left sided abdominal pain. Pt has known left ovarian cyst.Abdominal PainStatusReasonSpecialty Diagnoses / ProceduresReferred By ContactReferred To Contact Diagnoses Endometrial hyperplasia ENDOMETRIAL HYPERPLASIA, UTERINE FIBROID Procedures WI HYSTEROSCOPY,W/ENDO BX DILATATION AND CURETTAGE HYSTEROSCOPY Lizbet Calderon DO [address] [place] [address] [facility] ReasonCommentsDental Painright lowerSpecialtyDiagnoses / ProceduresReferred By ContactReferred To ContactRadiology Diagnoses Elevated LFTs RUQ pain Procedures US ABDOMEN LIMITED Michael Salazar MD [address] [place] [phone] Referral IDStatusReasonStart DateExpiration DateVisits RequestedVisits [id number]/22/20222/[id number] / Procedures Referred By ContactReferred To ContactRadiology Diagnoses Infertility associated with anovulation Procedures US Non OB Transvaginal Lizbet Calderon, DO [address] [place] [address] Referral IDStatusReasonStart DateExpiration DateVisits RequestedVisits [id number]/24/20225/154118MzdhaiMzqrrtmdEpgolm Biteinside cat bit her and she has bilateral index fingers swelling and pain.SpecialtyDiagnoses / ProceduresReferred By ContactReferred To ContactRadiology Diagnoses Lump at site of vaccination Procedures US EXTREMITY LEFT NON VASC LIMITED US EXTREMITY JOINT LEFT NON VASC COMPLETE Pinky Romeor S [address] [place] [address] Referral IDStatusReasonStart DateExpiration DateVisits RequestedVisits [id number]/10/20228/442189JxltqdylrPnzuxgnso / Procedures Referred By ContactReferred To ContactRadiology Diagnoses RUQ pain Procedures US ABDOMEN LIMITED Michael Salazar MD [address] [phone] Referral IDStatusReasonStart DateExpiration DateVisits RequestedVisits [id number]/23/202212/153808WtowhwulzMupflweqi / Procedures Referred By ContactReferred To ContactRadiology Diagnoses Chronic lymphocytic thyroiditis Procedures US THYROID Stalin Clarke MD [address] [facility] [address] [place] [address] Referral IDStatusReasonStart DateExpiration DateVisits RequestedVisits [id number]/31/471543/200178KnkkfiPidmrgdkIuulrxp NoduleNew Patient : thyroid noduleSpecialtyDiagnoses / ProceduresReferred By Contact Referred To ContactOtolaryngology Diagnoses Thyroid nodule (CMS/HCC) Procedures [place] OFFICE/OUTPATIENT [facility] Stalin Clarke MD [address] [place] [address] Phone: tel: fax: Michele Peterson, DO [address] [place] [address] Phone: tel: fax: Referral IDStatusReasonStart DateExpiration DateVisits RequestedVisits [id number] Specialty Services Required /[id number]bEu presents today for a colonoscopy consult. Pt denies/admits to: admits to having a colonoscopy before. Last colonoscopy was in 2016 and it was normal. Pt admits to abdominal pain. Pt denies rectal bleeding. Pt denies changes in bowel movements. Pt admits to a family history of colon cancer that they know of.ReasonCommentsThyroid NoduleFNA ReasonCommentsThyroid NoduleFNA resultsReasonCommentsEye Lid SwellingLeft upper eyelid for 2 days with rednessEye Itching Left EyeFor 2 daysReasonComments Conjunctival edemaBoth eyesReasonCommentsRed Eye Both EyesReasonCommentsGlaucoma EvaluationReasonCommentsAbdominal PainSpecialtyDiagnoses / ProceduresReferred By ContactReferred To Contact Diagnoses Appendicitis Mumtaz Castillo MD [address] [place] [address] Phone: tel: fax: [facility] [address] [place] [address] Referral IDStatusReasonStart DateExpiration DateVisits RequestedVisits [id number] Nodule6 month reckReasonCommentsPost-op Post op right thyroidReasonCommentsPost-op1 month armand with labs INFORMATION SOURCE (unrecogn ized section and content) DATE CREATED AUTHOR 08/04/2019 [facility] DATE CREATED AUTHOR AUTHOR'S ORGANIZ ATION 09/08/2020 [facility] DATE CREATED AUTHOR AUTHOR'S ORGANIZ ATION 07/01/2025 [facility] DATE CREATED AUTHOR AUTHOR'S ORGANIZ ATION 07/05/2025 [facility] DATE CREATED AUTHOR AUTHOR'S ORGANIZ ATION 07/17/2025 [facility] DATE CREATED AUTHOR AUTHOR'S ORGANIZ ATION 07/18/2025 [facility] DATE CREATED AUTHOR AUTHOR'S ORGANIZ ATION 07/23/2025 [facility] DATE CREATED AUTHOR AUTHOR'S ORGANIZ ATION 08/24/2025 [facility] Ordered Prescriptions (unrec ognized section and content) PrescriptionSigDispensedRefillsStart DateEnd Date ketorolac (TORADOL) 10 MG tablet Take 1 tablet by mouth every 6 hours as needed for Pain Do not use with other NSAIDs. May add Tylenol for pain relief. 20 tablet clindamycin (CLEOCIN) 300 MG capsule Take 1 capsule by mouth 3 times daily for 7 days 21 capsule /rescriptionSigDispensedRefillsStart DateEnd Date naproxen (NAPROSYN) 500 MG tablet Take 1 tablet by mouth 2 times daily 30 tablet amoxicillin-clavulanate (AUGMENTIN) 875-125 MG per tablet Take 1 tablet by mouth 2 times daily for 10 days 20 tablet / Scheduled Active and Recently Administ ered Medications (unrecognized section and content) Medication Order/// lidocaine viscous hcl (XYLOCAINE) 2 % solution 15 mL (COMPLETED) 15 mL, Mouth/Throat, ONCE, On 03/11/21 at 1115, For 1 dose, Apply topically Every 2-3 hours * 1113 (Given - Provider: Beth Esquivel RN) oxyCODONE-acetaminophen (PERCOCET) 5-325 MG per tablet 1 tablet (COMPLETED) 1 tablet, Oral, ONCE, On 03/11/21 at 1115, For 1 dose, Maximum dose of acetaminophen is 4000 mg from all sources in 24 hours. * 1114 (Given - Provider: Beth Esquivel RN) Medication Order///06/2022 amoxicillin-clavulanate (AUGMENTIN) 500-125 MG per tablet 1 tablet (COMPLETED) Dose in mg is based on amoxicillin component., 1 tablet, Oral, ONCE, 1 dose, On Fozia 03/22/22 at 2015,Antimicrobial Indications: Skin and Soft Tissue Infection * 2008 (Given - Provider: Rashid Pardo RN) Medication Order///01/2025 cefTRIAXone (ROCEPHIN) 1,000 mg in sterile water 10 mL IV syringe (COMPLETED) 1,000 mg, IntraVENous, ONCE, On 02/14/25 at 0115, For 1 dose, Administer as slow IV Push over 5 mins Reconstitute 1 g vials with 9.6 mL of designated diluent to produce a 100 mg/mL solution. * 0125 (Given - Provider: Lina Aguilera RN) diphenhydrAMINE (BENADRYL) injection 25 mg (COMPLETED) 25 mg, IntraVENous, ONCE, 1 dose, On 02/13/25 at 2215, IV Push at rate not to exceed 25 mg/min. * 2212 (Given - Provider: Lina Aguilera RN) metroNIDAZOLE (FLAGYL) 500 mg in 0.9% NaCl 100 mL IVPB premix (COMPLETED) 500 mg, IntraVENous, ONCE, 1 dose, On 02/14/25 at 0115, Antimicrobial Indications: Intra-Abdominal Infection * 0131 (New Bag - Provider: Lina Aguilera RN) * 0231 (Stopped - Provider: Aracely Wolff RN) morphine sulfate (PF) injection 4 mg (COMPLETED) 4 mg, IntraVENous, ONCE, 1 dose, On 02/13/25 at 2215, If oral and IV narcotics ordered, use oral first and only use IV if oral is ineffective or cannot take oral. Do Not give oral and IV within 1 hour of each other unless specifically ordered. * 2211 (Given - Provider: Lina Aguilera RN) [...] first time they get up after administration. * 2214 (Given - Provider: Lina Aguilera, FAINA) sodium chloride 0.9 % bolus 1,000 mL (COMPLETED) 1,000 mL (10.3 mL/kg), IntraVENous, at 495.9 mL/hr, Administer over 121 Minutes, ONCE, On 02/13/25 at 2215, For 1 dose * 2215 (New Bag - Provider: Lina Aguilera RN) * 0000 (Stopped - Provider: Lina Aguilera RN) sodium chloride flush 0.9 % injection 10 mL 10 mL, IntraVENous, EVERY 12 HOURS SCHEDULED (2 times per day), First dose on 02/14/25 at 0900, Until Discontinued * 0841 (Not Given - Provider: Lucrecia Medley RN - Reason: IV Fluid Infusing) * 2100 (Due) Medication Order// 0.9 % sodium chloride infusion (CANCELED) IntraVENous, at 100 mL/hr, CONTINUOUS, Starting on 02/14/25 at 0115 * 0123 (New Bag - Provider: Lina Aguilera RN) 0.9 % sodium chloride infusion IntraVENous, at 75 mL/hr, CONTINUOUS, Starting on 02/14/25 at 0215, For 24 hours, Complete last bag that is running at 24 hours and then saline lock IV * 0250 (Rate/Dose Change - Provider: Aracely Wolff RN) * 1644 (Stopped - Provider: Lucrecia Medley RN) Medication Order// 0.9 % sodium chloride infusion IntraVENous, at 5-250 mL/hr, PRN, if patient receiving piggyback infusions and maintenance fluids are not ordered OR KVO fluids to protect IV site / prevent frequent line interruptions/ long duration, Starting on 02/14/25 at 0155, For piggyback infusion, administer at same rate as piggyback for atotal of 25 mL. Enter 25 mL into [...] For temp greater than 100.4 F (38 C),Administer if oral route cannot be used. acetaminophen [...] on 02/13/25 at 2234, Until 02/13/25 at 2236,Other * 2236 (Given - Provider: Shell Adams) morphine [...] hour of each other unless specifically ordered. * 0249 (Given - Provider: Brook Santiago RN) * 0714 (Given - Provider: Lucrecia Medley RN) polyethylene glycol (GLYCOLAX) packet 17 g 17 g, Oral, DAILY PRN, Starting on 02/14/25 at 0155, Until Discontinued, Constipation, First linetherapy for constipation potassium bicarb-citric acid (EFFER-K) effervescent [...] further dilute if GI adverse effects occur. * 0838 (See Alternative - Provider: Lucrecia Medley RN) * 0939 (See Alternative - Provider: Lucrecia Medley RN) * 1044 (See Alternative - Provider: Lucrecia Medley RN) * 1148 (See Alternative - Provider: Lucrecia Medley RN) * 1251 (See Alternative - Provider: Lucrecia Medley RN) * 1355 (See Alternative - Provider: Lucrecia Medley RN) [...] in half and each half swallowed separately. * 0838 (See Alternative - Provider: Lucrecia Medley RN) * 0939 (See Alternative - Provider: Lucrecia Medley RN) * 1044 (See Alternative - Provider: Lucrecia Medley RN) * 1148 (See Alternative - Provider: Lucrecia Medley RN) * 1251 (See Alternative - Provider: Lucrecia Medley RN) * 1355 (See Alternative - Provider: Lucrecia Medley RN) [...] patients with CrCl less than 30 mL/min. * 0838 (New Bag - Provider: Lucrecia Medley RN) * 0939 (New Bag - Provider: Lucrecia Medley RN) * 1044 (New Bag - Provider: Lucrecia Medley RN) * 1148 (New Bag - Provider: Lucrecia Medley RN) * 1251 (New Bag - Provider: Lucrecia Medley RN) * 1355 (New Bag - Provider: Lucrecia Medley RN) [...] first time they get up after administration. * 0714 (Given - Provider: Lucrecia Medley RN) sodium chloride flush 0.9 % injection 10 mL 10 mL, IntraVENous, PRN, Starting on 02/14/25 at 0155, Until Discontinued, Line Care, After everyIV line use Order Group 1: acetaminophen (TYLENOL) tablet 650 [...] For temp greater than 100.4 F (38 C),Administer if oral route cannot be used. Group [...] Care Teams (unrecognized sec tion and content) Team MemberRelationshipSpecialtyStart DateEnd Date Michael Salazar MD [address] [place] [address] PCP - General10/22/13Te MemberRelationshipSpecialtyStart [place] [address] [place] [address] PCP - General10/22/13Te MemberRelationshipSpecialtyStart [place] [address] [place] [address] PCP - General10/22/13Te MemberRelationshipSpecialtyStart DateEnd Date Michael Salazar MD [address] [place] [address] PCP - General10/22/13Te MemberRelationshipSpecialtyStart DateEnd Date Michael Salazar MD [address] [place] [address] PCP - General10/22/13Te MemberRelationshipSpecialtyStart DateEnd Date Michael Salazar MD [address] [place] [address] PCP - General10/22/13Te MemberRelationshipSpecialtyStart [place] [address] [place] [address] PCP - General10/22/13Te MemberRelationshipSpecialtyStart DateEnd Date Michael Salazar MD [address] [place] [facility] [place] [address] PCP - General10/22/13Team MemberRelationshipSpecialtyStart DateEnd Date Michael Salazar MD [address] [facility] [place] [address] PCP - General10/22/13Team MemberRelationshipSpecialtyStart DateEnd Date Michael Salazar MD [address] [facility] [place] [address] PCP - General10/22/13Team MemberRelationshipSpecialtyStart DateEnd Date Michael Salazar MD [address] [facility] [place] [address] PCP - General10/22/13Team MemberRelationshipSpecialtyStart DateEnd Date Michael Salazar MD [address] [facility] [place] [address] PCP - General10/22/13Team MemberRelationshipSpecialtyStart DateEnd Date Michael Salazar MD [address] [facility] [place] [address] PCP - GeneralFamily [facility]02/07/24 Stalin Clarke MD [address] [place] [address] Referring PhysicianEndocrinolog10/27/24 Michele Peterson DO [address] [facility] [place] [address] Otolaryngolog10/27/24Team MemberRelationshipSpecialtyStart DateEnd Date Michael Salazar MD [address] [place] [address], [place] [id number] PCP - [facility]02/07/24 Stalin Clarke MD [address] [place] [address] Referring PhysicianEndocrinolog10/27/24 Michele Peterson DO [address] [place] [address] Otolaryngolog10/27/24Team MemberRelationshipSpecialtyStart DateEnd [facility] Michael Salazar MD [address] [place] [address], [place] [address] [facility] - [facility]/07/24 Stalin Clarke MD [address] [place] [address] Referring PhysicianEndocrinolog10/27/24 Michele Peterson DO [address] [place] [address] Otolaryngolog10/27/24Team MemberRelationshipSpecialtyStart DateEnd Date Michael Salazar MD [address] [place] [address] PCP - General10/22/13Team MemberRelationshipSpecialtyStart DateEnd Date Michael Salazar MD [address] [place] [facility] [place] [address] PCP - GeneralFamily Medicine02/07/24 Stalin Clarke MD [address] [place] [address] Referring PhysicianEndocrinolog10/27/24 Michele Peterson, [address] [place] [place] [address] Otolaryngolog10/27/24Team MemberRelationshipSpecialtyStart DateEnd Date Michael Salazar MD [address] [place] [facility] [place] [address] PCP - [facility]02/07/24 Stalin Clarke MD [address] [place] [address] Referring PhysicianEndmymichigan medical center saginawinolog10/27/24 Michele Peterson DO [address] [place] [address] Otolaryngolog10/27/24 Team Status: Inactive Member Role Status Dates Michele Peterson DO Attending Provider Active S tart: November 10, 2024 End: November 10, 2024Team MemberRelationshipSpecialtyStart DateEnd Date Michael Salazar MD [address] [place] [facility] [place] [address] PCP - Generalmily Medicine02/07/24 Stalin Clarke MD [address] [place] [address] Referring PhysicianEndocrinolog10/27/24 Michele Peterson DO [address] [place] [address] Otolaryngolog10/27/24Team MemberRelationshipSpecialtyStart DateEnd Date Pinky Romero, SURAJ [address] [place] [address] PCP - GeneralInternal Medicine12/18/24Team MemberRelationshipSpecialtyStart Date End Date Pinky Romero, SURAJ [address] [place] [address] PCP - GeneralInternal Medicine12/18/24Team MemberRelationshipSpecialtyStart Date End Date Pinky Romero CNP [address] [place] [address] PCP - GeneralInternal Medicine12/18/24Team MemberRelationshipSpecialtyStart Date End Date Michael Salazar MD [address] [place] [address] PCP - General10/22/13Team MemberRelationshipSpecialtyStart DateEnd Date Michael Salazar MD [address] [place] [address] PCP - General10/22/13Team MemberRelationshipSpecialtyStart DateEnd Date Michael Salazar MD PCP - Generalmily Medicine02/07/24 Stalin Clarke MD [address] [place] [address] Referring PhysicianEndocrinolog10/27/24 Michele Peterson DO [address] [place] [address] Otolaryngolog10/27/24Team MemberRelationshipSpecialtyStart DateEnd Date Michael Salazar MD PCP - [facility] Medicine02/07/24 Stalin Clarke MD [address] [place] [address] Referring PhysicianEndmymichigan medical center saginawinol10/27/24 Michele Peterson DO [address] [place] [address] Otolarynlog10/27/24 Team Status: Inactive Member Role Status Dates Michele Peterson DO Attending Provider Active S tart: June 01, 2025 End: June 01, 2025Team MemberRelationshipSpecialtyStart DateEnd Date Michael Salazar MD PCP - [facility] Medicine02/07/24 Stalin Clarke MD [address] [place] [address] Referring PhysicianEndocrinolog10/27/24 Michele Peterson DO [address] [place] [address] Otolaryngolog10/27/24Team MemberRelationshipSpecialtyStart DateEnd Date Michael Salazar MD [facility] - [facility]02/07/24 Stalin Clarke MD [address] [place] [address] Referring PhysicianEndocrinolog10/27/24 Michele Peterson, DO [address] [address] Otolaryngolog10/27/24Team MemberRelationshipSpecialtyStart DateEnd Date Michael Salazar MD [address] [place] [address] PCP - General10/22/13Team MemberRelationshipSpecialtyStart DateEnd Date Michael Salazar MD [address] [place] [address] PCP - General10/22/13Team MemberRelationshipSpecialtyStart DateEnd Date Michael Salazar MD [address] [place] [address] PCP - General10/22/13Team MemberRelationshipSpecialtyStart DateEnd Date Michael Salazar MD [facility] - [facility]02/07/24 Stalin Clarke MD [address] [place] [address] Referring PhysicianEndocrinolog10/27/24 Michele Peterson DO [address] [place] [address] Otolaryngolog10/27/24Team MemberRelationshipSpecialtyStart DateEnd Michael Salazar MD PCP - [facility]02/07/24 Stalin Clarke MD [address] [place] [address] Referring PhysicianEndocrinolog10/27/24 Michele Peterson DO [address] [address] Otolaryngolog10/27/24 Team Status: Active Member Role Status Dates Michael Salazar MD Primary Care Provider Active Team Status: Inactive Member Role Status Dates Michael Salazar MD Primary Care Provider Active Start: July 12, 2025 End: July 12kenny Peterson DOAttending ProviderActiveStart: July 12, 2025 End: July 12, 2025 Goals (unrecognized section and content) Goals may be documented in a n alternate sectionGoals may be documented in an alternate sectionGoals may be documented in an alternate section Source Comments (unrecognize d section and content) In the event this informatio n is protected by the Federal Confidentiality of Alcohol and Drug Abuse Patient Records regulations: The Federal rules restrict any use of the information to criminally investigate or prosecute any alcohol or drug abuse patient.[facility] HospitalIn the event this information is protected by the Federal Confidentiality of Alcohol and Drug Abuse Patient Records regulations: The Federal rules restrict any use of the information to criminally investigate or prosecute any alcohol or drug abuse patient.[facility] HospitalIn the event this information is protected by the Federal Confidentiality of Alcohol and Drug Abuse Patient Records regulations: The Federal rules restrict any use of the information to criminally investigate or prosecute any alcohol or drug abuse patient.[facility] HospitalIn the event this information is protected by the Federal Confidentiality of Alcohol and Drug Abuse Patient Records regulations: The Federal rules restrict any use of the information to criminally investigate or prosecute any alcohol or drug abuse patient.[facility] FOR RECORDS PERTAINING TO PATIENTS WHO [...] BE BASED ON THE PRIMARY CLINICAL RECORDS. [employer] [facility]. provides no warranty or guarantee of the accuracy or completeness of information in this document.
[2025-08-26 12:30] LABS: Alanine Aminotransferase 35 U/L (14-59); Albumin Globulin Ratio 1.2; Albumin Level 4.3 g/dL (3.4-5.0); Alkaline Phosphatase 57 U/L (46-116); Anion Gap 12.0; Aspartate Amino Transferase 24 U/L (15-37); Blood Urea Nitrogen 13.0 mg/dL (7.0-18.0); Calcium 9.4 mg/dL (8.5-10.1); Carbon Dioxide 26.2 mmol/L (21.0-32.0); Chloride 105 mmol/L (98-107); Cholesterol 154 mg/dL (<=200); Estimated GFR (African America >60 (>=60 mL/min/1.73m^2); Estimated GFR (Non-African Ame >60 (>=60 mL/min/1.73m^2); Free T3 1.87 pg/mL (2.18-3.98); Globulin 3.7 g/dL; Glucose 98 mg/dL (74-106); HDL Cholesterol 38 mg/dL (40-60); Magnesium 1.7 mg/dL (1.8-2.4); Potassium 3.2 mmol/L (3.5-5.1); Sodium 140 mmol/L (136-145); Thyroid Stimulating Hormone 1.312 uIU/mL (0.358-3.740); Total Protein 8.0 g/dL (6.4-8.2); Triglycerides 93 mg/dL (<=150); VLDL CHOLESTEROL 18.6 mg/dL
[2025-08-26 13:04] LABS: Iron 27.0 ug/dL (50.0-170.0)
== END 2025-08-26 11:14 | disposition home or self-care (01) ==
LOC: LAB 11:14
PROVIDERS: PCP Family Medicine; Visit Provider Family Medicine
DX: Z00.00 Encounter for general adult medical examination without abnormal findings (principal); E78.5 Hyperlipidemia, unspecified; R73.09 Other abnormal glucose; D64.9 Anemia, unspecified; E03.9 Hypothyroidism, unspecified; I10 Essential (primary) hypertension; D50.9 Iron deficiency anemia, unspecified; R79.0 Abnormal level of blood mineral
CPT/HCPCS: 36415; 80053; 80061; 82306; 83036; 83525; 83540; 83735; 84436; 84443; 84481; 85025

== ENCOUNTER 2025-10-06 07:45 | Outpatient (RCR) | payer OTHER, SELFPAY ==
[2025-09-29 13:29] VITALS: BP 114/97; PULSE 71; TEMP 36.9; O2SAT 98
[2025-09-29] MEDS: IRON SUCROSE COMPLEX 300 MG in 0.9 % SODIUM CHLORIDE 250 ML 176.667 MG IV (13:43)
[2025-10-06 07:45] VITALS: BP 162/93; PULSE 83; TEMP 36; O2SAT 99
[2025-10-06] MEDS: IRON SUCROSE COMPLEX 300 MG in 0.9 % SODIUM CHLORIDE 250 ML 176.667 MG IV (07:59)
--- NOTE | 2025-10-06 08:20 | PC.NURSE ---
Tolerating infusion without c/o.
== END 2025-10-13 23:59 | disposition home or self-care (01) ==
LOC: INF 07:45
PROVIDERS: PCP Family Medicine; Visit Provider Family Medicine
DX: D50.9 Iron deficiency anemia, unspecified (principal)
CPT/HCPCS: 96365; 96366; J1756